=== PATIENT | female | born 1955 | race Caucasian/White ===

== ENCOUNTER → 2020-10-23 14:22 | Outpatient (BNVA) | payer MEDICARE, MEDICAID, SELFPAY | PROVIDERS: PCP Internal Medicine; Visit Provider Student in an Organized Health Care Education/Training Program | DX: Z13.89 Encounter for screening for other disorder (principal) | CPT/HCPCS: Q3014 ==

== ENCOUNTER 2021-03-02 20:35 | Emergency (ER) | payer MEDICARE, MEDICAID, SELFPAY ==
--- NOTE | ~2021-03-02 | CT_ITS ---
EXAMINATION: CT ABDOMEN AND PELVIS WITHOUT CONTRAST CLINICAL INFORMATION: Left flank pain COMPARISON: 09/09/2017 TECHNIQUE: Multidetector volumetric imaging was performed from the superior aspect of the liver through the pubic symphysis. Sagittal and coronal reformatted images were obtained on the technologist's workstation. This CT examination was performed using dose optimization techniques as appropriate, variously including the following: *Automated exposure control *Adjustment of mA and/or kV according to patient size (this includes techniques or standardized protocols for targeted exams where dose is matched to indication/reason for exam; i.e. extremities or head) *Use of iterative reconstruction technique DLP: 714 mGy-cm FINDINGS: LUNG BASES: The visualized lung bases are unremarkable. LIVER, GALLBLADDER, AND BILIARY TREE: Liver is normal in size, contour and morphology. Mild diffuse hepatic steatosis. Cholecystectomy. No intra or extrahepatic biliary dilatation. PANCREAS: Unremarkable. SPLEEN: Unremarkable. ADRENAL GLANDS: Unremarkable. KIDNEYS AND URETERS: The kidneys are normal in size, shape, and attenuation. No hydronephrosis, hydroureter, or calculi seen. No perinephric stranding. BLADDER: Unremarkable. GASTROINTESTINAL TRACT: Pancolonic diverticulosis. No evidence of diverticulitis. Appendectomy. Small hiatal hernia. Stomach otherwise unremarkable. Small bowel is normal. ABDOMINAL WALL: No significant hernia is appreciated. LYMPH NODES: Normal. VASCULAR: Aorta is atherosclerotic but normal caliber. PELVIC VISCERA: Uterus and adnexa unremarkable. OSSEOUS STRUCTURES: Unremarkable. CT/CT abdomen pelvis wo con IMPRESSION: No acute findings within the abdomen or pelvis to explain the patient's symptomatology. Pancolonic diverticulosis without evidence of diverticulitis.
[2021-03-02 20:47] VITALS: BP 181/62; PULSE 66; RESP 16; TEMP 36.7; O2SAT 97; BMI 33.6
[2021-03-02 21:16] LABS: Glucose Urine UA NEG (NEG); Leukocyte Esterase Urine NEG (NEG); Nitrite Urine NEG (NEG); PH 8.5 (5.0-8.0); Urine Blood NEG (NEG); Urine Ketones NEG (NEG); Urine Protein NEG (NEG-TRACE)
[2021-03-02 21:21] LABS: Appearance Urine CLEAR; Color Urine YELLOW
--- NOTE | 2021-03-02 22:45 | ED.ABDPAIN ---
HPI - Abdominal Pain General Chief Complaint: Abdominal Pain Stated Complaint: abdominal pain Time Seen by Provider: 03/02/21 22:35 Source: patient Mode of arrival: ambulatory Limitations: no limitations History of Present Illness HPI narrative: Patient comes to the emergency room complaining of left flank pain starting this morning. Patient states the pain is constant, radiating from the left flank towards the back, complaining of nausea, no vomiting or diarrhea, no fever. Patient also complaining of dysuria, denies hematuria. Patient denies trauma Related Data Home Medications Medication Instructions Recorded Confirmed alcohol swabs pad TOPICAL 09/11/20 01/09/21 buspirone 10 mg tablet mg PO 09/11/20 01/09/21 citalopram 20 mg tablet mg PO 09/11/20 01/09/21 metformin 500 mg tablet mg PO 09/11/20 01/09/21 atenolol 50 mg tablet 50 mg PO DAILY 10/23/20 01/09/21 Previous Rx's Medication Instructions Recorded atorvastatin 40 mg tablet 40 mg PO BEDTIME 90 Days #90 tab 10/10/20 acetaminophen 650 mg 650 mg PO Q8H PRN #90 tab 10/23/20 tablet,extended release walker #1 ea 12/26/20 clotrimazole 1 % vaginal cream 1 appful VAGINAL BEDTIME 7 Days 01/09/21 #45 g gabapentin 100 mg capsule 100 mg PO BEDTIME 30 Days #30 cap 01/09/21 fluconazole 150 mg tablet 150 mg PO Q3D #2 tab 01/24/21 amlodipine 5 mg tablet 5 mg PO DAILY #30 tab 02/08/21 aspirin 81 mg tablet,delayed 81 mg PO DAILY 90 Days #90 tab 02/08/21 release omeprazole 20 mg capsule,delayed 20 mg PO DAILY #90 cap 02/08/21 release cyclobenzaprine 5 mg PO TID PRN #10 tab 03/03/21 Allergies Allergy/AdvReac Type Severity Reaction Status Date / Time Penicillins Allergy Intermediate DIZZINESS, Verified 01/09/21 13:11 RASH tramadol [TRAMADOL] Allergy Unknown NAUSEA & Verified 01/09/21 13:11 VOMITING egg [Egg] AdvReac Intermediate NAUSEA & Verified 01/09/21 13:11 VOMITING morphine AdvReac Chest Pain Verified 03/03/21 00:35 FANY DRINK Allergy Intermediate NAUSEA & Uncoded 01/09/21 13:11 VOMITING Review of Systems Review of Systems Constitutional : No Weight loss, No Fever, No Chills, No Night Sweats, No Fatigue, No Malaise ENT/Mouth : No Hearing loss, No Ear Pain, No Nasal Congestion, No Sinus Pain, No Hoarseness, No sore throat, No Rhinorrhea, No Swallowing Difficulty Eyes: No Eye Pain, No Swelling, No Redness, No Foreign Body, No Discharge, No Vision Changes Cardiovascular : No Chest Pain, No SOB, No Dyspnea on Exertion, No Orthopnea, No Edema, No Palpitations Respiratory : No Cough, No Sputum, No Wheezing, No Smoke Exposure, No Dyspnea Gastrointestinal : No Nausea, No Vomiting, No Diarrhea, No Constipation, No abdominal Pain, No Hematochezia, No Melena, complaining of left flank pain Genitourinary : Complaining of dysuria, No Urinary Frequency, No Hematuria, No Urinary Incontinence, No Urgency, No Flank Pain, No Urinary Flow Changes, No Hesitancy Musculoskeletal : No joint pain, No Myalgias, No Joint Swelling Skin : No Skin Lesions, No rash Neuro : No Weakness, No Numbness, No Paresthesias, No Loss of Consciousness, No Dizziness, No Headache Psych : No Anxiety/Panic, No Depression, No SI/HI/AH/VH, No Social Issues, Heme/Lymph: No Bruising, No Bleeding,No Lymphadenopathy Endocrine : No Polyuria, No Polydipsia, No Temperature Intolerance Physical Exam Vital Signs: Vital Signs: Last Vital Signs Temp 98 F 03/02/21 23:37 Pulse 69 03/03/21 00:37 Resp 14 03/03/21 00:37 BP 159/59 H 03/03/21 00:37 Pulse Ox 97 03/02/21 23:37 Body Mass Index 33.6 Appearance: Alert. Oriented X3. No acute distress. Eyes: Pupils equal, round and reactive to light. ENT: Pharynx normal. Neck: Normal inspection. Neck supple. No lymph nodes noted. No crepitus CVS: Normal heart rate and rhythm. Pulses normal. Normal S1 and S2 Respiratory: No respiratory distress. Breath sounds normal. No Wheezing. No rales Abdomen: Soft and nontender. No rigidity. No distention. Back: No back pain on palpation, positive mild CVA tenderness on the left side Skin: Skin warm and dry. Normal skin color. Normal skin turgor. Extremities: No lower extremity edema. No lower extremity edema. No Lacerations. No Rash Neuro: Oriented X 3. No motor deficit. No sensory deficit. Moving all extermities. No slurred speech. Course Course Course Narrative: After patient was medicated with morphine, patient developed shortness of breath. Patient denied feeling sensation of throat closing, patient states she has had this episode before and forgot to tell us. Oxygen saturation remained 98% on room air, EKG done immediately showed no acute changes. Patient was given Zofran and patient feels back to normal again Patient's EKG within normal limits, patient's troponin negative, patient states that now she feels completely back to normal, no longer having abdominal pain or any other symptoms. MDM - Abdominal Pain MDM Narrative Medical decision making narrative: Overall patient is feeling better, I discussed the labs and imaging with the patient, patient follow-up with her primary care physician. It is possible the patient may have musculoskeletal pain in the left flank, urinalysis negative Lab Data Result diagrams: 03/02/21 22:55 03/02/21 22:55 Labs: Lab Results 03/02/21 03/02/21 03/02/21 Range/Units 21:06 22:55 22:55 WBC (4.8-10.8) X10*3/uL RBC (4.20-5.50) X10*6/uL Hgb (12.0-16.0) g/dl Hct (37-47) % MCV (80-98) fL MCH (27.0-33.0) pg MCHC (31.0-35.0) g/dl RDW (11.0-16.0) % Plt Count (160-400) X10*3/uL MPV (9.4-12.3) fL Immature Gran % (Auto) (0.0-0.4) % Neut % (Auto) (45-73) % Lymph % (Auto) (20-40) % Orange % (Auto) (2-11) % Eos % (Auto) (0-4) % Baso % (Auto) (0-2) % Lymph # (Auto) (1.2-4.9) X10*3/uL Orange # (Auto) (0.1-1.2) X10*3/uL Eos # (Auto) (0.0-0.4) X10*3/uL Baso # (Auto) (0.0-0.2) X10*3/uL Abs Immat Gran (auto) (0.00-0.03) X10*3/uL Absolute Neuts (auto) (2.0-8.3) X10*3/uL Absolute Nucleated RBC (0.0-0.012) X10*3/uL Nucleated RBC % (auto) (0.0-0.2) /100WBC Hold Blue Top SEE NOTE Sodium 140 (135-145) mmol/L Potassium 4.5 (3.3-5.1) mmol/L Chloride 105 (96-108) mmol/L Carbon Dioxide 30 H (22-29) mmol/L Anion Gap 10 L (12-20) BUN 14 (9-16) mg/dL Creatinine 0.82 (0.5-1.4) mg/dL Estim Creat Clear Calc 64.0 Estimated GFR > 60 Random Glucose 104 (60-115) mg/dL Calcium 8.9 (8.4-10.2) mg/dL Total Bilirubin 0.2 (0.0-1.0) mg/dL Direct Bilirubin < 0.2 (0.0-0.5) mg/dL AST 20 (5-31) U/L ALT 19 (0-31) U/L Alkaline Phosphatase 164 H (39-117) U/L Troponin I High Sens (<3.5-17.0) ng/L Total Protein 6.7 (6.5-8.0) g/dL Albumin 3.9 (3.5-5.0) g/dL Urine Color YELLOW Urine Appearance CLEAR Urine pH 8.5 H (5.0-8.0) Ur Specific [place] 1.020 (1.005-1.025) Urine Protein NEG (NEG-TRACE) MG/DL Urine Glucose (UA) NEG (NEG) MG/DL Urine Ketones NEG (NEG) MG/DL Urine Blood NEG (NEG) Urine Nitrite NEG (NEG) Ur Leukocyte Esterase NEG (NEG) 03/02/21 03/02/21 03/03/21 Range/Units 22:55 22:55 01:31 WBC 8.6 (4.8-10.8) X10*3/uL RBC 3.78 L (4.20-5.50) X10*6/uL Hgb 11.0 L (12.0-16.0) g/dl Hct 34.7 L (37-47) % MCV 91.8 (80-98) fL MCH 29.1 (27.0-33.0) pg MCHC 31.7 (31.0-35.0) g/dl RDW 13.1 (11.0-16.0) % Plt Count 258 (160-400) X10*3/uL MPV 10.9 (9.4-12.3) fL Immature Gran % (Auto) 0.4 (0.0-0.4) % Neut % (Auto) 59.2 (45-73) % Lymph % (Auto) 29.6 (20-40) % Orange % (Auto) 8.2 (2-11) % Eos % (Auto) 1.8 (0-4) % Baso % (Auto) 0.8 (0-2) % Lymph # (Auto) 2.5 (1.2-4.9) X10*3/uL Orange # (Auto) 0.7 (0.1-1.2) X10*3/uL Eos # (Auto) 0.2 (0.0-0.4) X10*3/uL Baso # (Auto) 0.1 (0.0-0.2) X10*3/uL Abs Immat Gran (auto) 0.03 (0.00-0.03) X10*3/uL Absolute Neuts (auto) 5.1 (2.0-8.3) X10*3/uL Absolute Nucleated RBC 0.000 (0.0-0.012) X10*3/uL Nucleated RBC % (auto) 0.0 (0.0-0.2) /100WBC Hold Blue Top Sodium Cancelled (135-145) mmol/L Potassium Cancelled (3.3-5.1) mmol/L Chloride Cancelled (96-108) mmol/L Carbon Dioxide Cancelled (22-29) mmol/L Anion Gap Cancelled (12-20) BUN Cancelled (9-16) mg/dL Creatinine Cancelled (0.5-1.4) mg/dL Estim Creat Clear Calc Cancelled Estimated GFR Cancelled Random Glucose Cancelled (60-115) mg/dL Calcium Cancelled (8.4-10.2) mg/dL Total Bilirubin Cancelled (0.0-1.0) mg/dL Direct Bilirubin Cancelled (0.0-0.5) mg/dL AST Cancelled (5-31) U/L ALT Cancelled (0-31) U/L Alkaline Phosphatase Cancelled (39-117) U/L Troponin I High Sens 4.6 (<3.5-17.0) ng/L Total Protein Cancelled (6.5-8.0) g/dL Albumin Cancelled (3.5-5.0) g/dL Urine Color Urine Appearance Urine pH (5.0-8.0) Ur Specific [place] (1.005-1.025) Urine Protein (NEG-TRACE) MG/DL Urine Glucose (UA) (NEG) MG/DL Urine Ketones (NEG) MG/DL Urine Blood (NEG) Urine Nitrite (NEG) Ur Leukocyte Esterase (NEG) Imaging Data CT scan - abdomen: Radiologist's impression: FINDINGS: LUNG BASES: The visualized lung bases are unremarkable. LIVER, GALLBLADDER, AND BILIARY TREE: Liver is normal in size, contour and morphology. Mild diffuse hepatic steatosis. Cholecystectomy. No intra or extrahepatic biliary dilatation. PANCREAS: Unremarkable. SPLEEN: Unremarkable. ADRENAL GLANDS: Unremarkable. KIDNEYS AND URETERS: The kidneys are normal in size, shape, and attenuation. No hydronephrosis, hydroureter, or calculi seen. No perinephric stranding. BLADDER: Unremarkable. GASTROINTESTINAL TRACT: Pancolonic diverticulosis. No evidence of diverticulitis. Appendectomy. Small hiatal hernia. Stomach otherwise unremarkable. Small bowel is normal. ABDOMINAL WALL: No significant hernia is appreciated. LYMPH NODES: Normal. VASCULAR: Aorta is atherosclerotic but normal caliber. PELVIC VISCERA: Uterus and adnexa unremarkable. OSSEOUS STRUCTURES: Unremarkable. CT/CT abdomen pelvis wo con IMPRESSION: No acute findings within the abdomen or pelvis to explain the patient's symptomatology. Pancolonic diverticulosis without evidence of diverticulitis. ECG Data Attestation: I personally reviewed and interpreted this ECG as follows: (Sinus rhythm, heart rate 66, no ST segment depression or elevation, no T-wave inversion) Discharge Plan Discharge Clinical Impression: Acute left flank pain Patient Disposition: Home, Self-Care Instructions: Flank Pain (ED) Additional Instructions: Please follow-up with your primary care physician tomorrow. If you have any worsening or new symptoms, please return to the emergency room or call 911 Prescriptions: New cyclobenzaprine 5 mg tablet 5 mg PO TID PRN (Reason: muscle spasm) Qty: 10 RF: 0 No Action atorvastatin 40 mg tablet 40 mg PO BEDTIME 90 Days Qty: 90 RF: 3 (DME) walker Misc See Rx Instructions .ROUTE .MEDSUPPLY Qty: 1 RF: 0 fluconazole [Diflucan] 150 mg tablet 150 mg PO Q3D Qty: 2 RF: 0 omeprazole 20 mg capsule,delayed release(DR/EC) 20 mg PO DAILY Qty: 90 RF: 3 amlodipine 5 mg tablet 5 mg PO DAILY Qty: 30 RF: 6 aspirin 81 mg tablet,delayed release (DR/EC) 81 mg PO DAILY 90 Days Qty: 90 RF: 3 alcohol swabs Pads, Medicated topical RF: 0 buspirone 10 mg tablet PO RF: 0 citalopram 20 mg tablet PO RF: 0 metformin 500 mg tablet PO RF: 0 gabapentin 100 mg capsule 100 mg PO BEDTIME 30 Days Qty: 30 RF: 6 clotrimazole 1 % cream 1 appful vaginal BEDTIME 7 Days Qty: 45 RF: 0 atenolol 50 mg tablet 50 mg PO DAILY RF: 0 acetaminophen [Tylenol Arthritis Pain] 650 mg tablet extended release 650 mg PO Q8H PRN (Reason: pain) Qty: 90 RF: 4 PMFSH Past Medical History Medical History Depression with anxiety Diabetes mellitus Essential hypertension Left ankle pain Left knee pain Polyarthralgia Pure hypercholesterolemia Vaginal pruritus Vitamin D deficiency Surgical History History of appendectomy History of cholecystectomy History of cyst of breast History of exploratory laparotomy History of hemicolectomy Family History Family History Father No problems noted. Mother Hypertension Stroke Diabetes Brother Leptospirosis Brother No problems noted. Family/Other FH: mental illness Social History Social History Alcohol intake: never Smoking Status: Never smoker Advance Directives: No Advance Directives Information Provided: No
[2021-03-02 23:01] LABS: MANUAL DIFF FLAG NO
[2021-03-02 23:03] LABS: Basophils Absolute Auto 0.1 X10*3/uL (0.0-0.2); Basophils Percent Auto 0.8 % (0-2); Eosinophils Absolute Auto 0.2 X10*3/uL (0.0-0.4); Eosinophils Percent Auto 1.8 % (0-4); Hematocrit 34.7 % (37-47); Imm Gran Abs Auto 0.03 X10*3/uL (0.00-0.03); Imm Gran Pct Auto 0.4 % (0.0-0.4); Lymphocytes Absolute Auto 2.5 X10*3/uL (1.2-4.9); Lymphocytes Percent Auto 29.6 % (20-40); Mean Corpuscular HGB Conc 31.7 g/dl (31.0-35.0); Mean Corpuscular Hemoglobin 29.1 pg (27.0-33.0); Mean Corpuscular Volume 91.8 fL (80-98); Mean Platelet Volume 10.9 fL (9.4-12.3); Monocytes Absolute Auto 0.7 X10*3/uL (0.1-1.2); Monocytes Percent Auto 8.2 % (2-11); Neutrophils Absolute Auto 5.1 X10*3/uL (2.0-8.3); Neutrophils Percent Auto 59.2 % (45-73); Platelet Count 258 X10*3/uL (160-400); Red Blood Count 3.78 X10*6/uL (4.20-5.50); Red Cell Distribution Width 13.1 % (11.0-16.0); White Blood Count 8.6 X10*3/uL (4.8-10.8)
[2021-03-02 23:26] LABS: Alanine Aminotransferase 19 U/L (0-31); Albumin Level 3.9 g/dL (3.5-5.0); Alkaline Phosphatase 164 U/L (39-117); Anion Gap 10 (12-20); Aspartate Amino Transferase 20 U/L (5-31); Bilirubin Direct < 0.2 mg/dL (0.0-0.5); Bilirubin Total 0.2 mg/dL (0.0-1.0); Blood Urea Nitrogen 14 mg/dL (9-16); Calcium 8.9 mg/dL (8.4-10.2); Carbon Dioxide 30 mmol/L (22-29); Chloride 105 mmol/L (96-108); Estimated Glomerular Filt Rate > 60; Glucose Random 104 mg/dL (60-115); Potassium 4.5 mmol/L (3.3-5.1); Sodium 140 mmol/L (135-145); Total Protein 6.7 g/dL (6.5-8.0)
[2021-03-02 23:37] VITALS: BP 147/61; PULSE 59; RESP 16; TEMP 36.6; O2SAT 97
[2021-03-02] MEDS: ondansetron HCL 4 MG/2 ML VIAL IVPUSH (23:50)
[2021-03-02] MEDS: Morphine Sulfate 4 MG/ML CARTRIDGE IVPUSH (23:50)
[2021-03-02] MEDS: Ketorolac Tromethamine 30 MG/ML VIAL IVPUSH (23:52)
--- NOTE | 2021-03-03 00:33 | ECG_ITS ---
Test Reason : CHEST PAIN Blood Pressure : / mmHG Vent. Rate : 066 BPM Atrial Rate : 066 BPM P-R Int : 152 ms QRS Dur : 082 ms QT Int : 426 ms P-R-T Axes : 056 -16 036 degrees QTc Int : 446 ms Sinus rhythm with Premature atrial complexes Moderate voltage criteria for LVH, may be normal variant Borderline ECG When compared with ECG of 12-NOV-2019 15:57, Premature atrial complexes are now Present Referred By: Generic ED Physician Electronically Signed By:MANUEL PEREIRA MD
--- NOTE | 2021-03-03 00:35 | PC.NURSE ---
pt began to experience nausea and chest pain following morphine administration. pt failed to mention that she has experience this reaction in the past. morphine now on pt's allergy list.
[2021-03-03 00:37] VITALS: BP 159/59; PULSE 69; RESP 14
[2021-03-03 02:01] LABS: Troponin-I High Sensitivity 4.6 ng/L (<3.5-17.0)
[2021-03-03] MEDS: ondansetron HCL 4 MG/2 ML VIAL IVPUSH (02:47)
[2021-03-03 02:49] VITALS: BP 139/42; PULSE 70; RESP 16; O2SAT 93
--- NOTE | 2021-03-03 03:05 | PC.NURSE ---
PT AND IN A HURRY TO GO HOME, ASKED SEVERAL TIMES TO BE DISCHARGED. PT WOULD NOT WAIT FOR INTERPRETOR. TRANSLATED INSTRUCTIONS.
== END 2021-03-03 03:05 | disposition home or self-care (01) ==
PROVIDERS: Emergency Provider Emergency Medicine; PCP Internal Medicine
DX: R10.9 Unspecified abdominal pain (principal); F41.8 Other specified anxiety disorders; E78.00 Pure hypercholesterolemia, unspecified; I10 Essential (primary) hypertension; E11.9 Type 2 diabetes mellitus without complications; K21.9 Gastro-esophageal reflux disease without esophagitis
CPT/HCPCS: 36415; 74176; 80053; 81003; 82248; 84484; 85025; 93005; 96374; 96375; 96376; 99283; 99284; J1885; J2270; J2405

== ENCOUNTER 2021-03-21 08:46 | Outpatient (REF) | payer MEDICARE, MEDICAID, SELFPAY ==
[2021-03-21 09:34] LABS: MANUAL DIFF FLAG NO
[2021-03-21 10:04] LABS: Basophils Absolute Auto 0.1 X10*3/uL (0.0-0.2); Basophils Percent Auto 0.9 % (0-2); Eosinophils Absolute Auto 0.2 X10*3/uL (0.0-0.4); Eosinophils Percent Auto 2.3 % (0-4); Hemoglobin 11.7 g/dl (12.0-16.0); Imm Gran Abs Auto 0.02 X10*3/uL (0.00-0.03); Imm Gran Pct Auto 0.3 % (0.0-0.4); Lymphocytes Absolute Auto 1.9 X10*3/uL (1.2-4.9); Lymphocytes Percent Auto 23.5 % (20-40); Mean Corpuscular HGB Conc 31.6 g/dl (31.0-35.0); Mean Corpuscular Hemoglobin 28.9 pg (27.0-33.0); Mean Corpuscular Volume 91.4 fL (80-98); Mean Platelet Volume 11.5 fL (9.4-12.3); Monocytes Absolute Auto 0.5 X10*3/uL (0.1-1.2); Monocytes Percent Auto 6.7 % (2-11); Neutrophils Absolute Auto 5.2 X10*3/uL (2.0-8.3); Neutrophils Percent Auto 66.3 % (45-73); Platelet Count 276 X10*3/uL (160-400); Red Blood Count 4.05 X10*6/uL (4.20-5.50); Red Cell Distribution Width 13.1 % (11.0-16.0); White Blood Count 7.9 X10*3/uL (4.8-10.8)
[2021-03-21 10:17] LABS: Alanine Aminotransferase 18 U/L (0-31); Albumin Level 3.9 g/dL (3.5-5.0); Alkaline Phosphatase 179 U/L (39-117); Anion Gap 11 (12-20); Aspartate Amino Transferase 17 U/L (5-31); Bilirubin Total 0.4 mg/dL (0.0-1.0); Blood Urea Nitrogen 14 mg/dL (9-16); Calcium 8.8 mg/dL (8.4-10.2); Carbon Dioxide 30 mmol/L (22-29); Chloride 104 mmol/L (96-108); Cholesterol 85 mg/dL; Estimated Glomerular Filt Rate > 60; Glucose Fasting 138 mg/dL (60-99); HDL Cholesterol 34 mg/dL; LDL Cholesterol Calculated 32 mg/dl; Potassium 4.1 mmol/L (3.3-5.1); Sodium 141 mmol/L (135-145); Total Protein 6.7 g/dL (6.5-8.0); Triglycerides 97 mg/dL
[2021-03-21 11:18] LABS: Creatinine Urine 167.25 mg/dL; Microalbum/Creatinine Ratio Ur 4.7 ug/mg cr
[2021-03-25 20:17] LABS: Vitamin D 25-OH, D2 <4 ng/mL; Vitamin D 25-OH, D3 35 ng/mL; Vitamin D 25-OH, Total 35 ng/mL (30-100)
== END 2021-03-21 08:47 | disposition home or self-care (01) ==
LOC: HO.LAB 08:46
PROVIDERS: PCP Internal Medicine; Visit Provider Internal Medicine
DX: E11.9 Type 2 diabetes mellitus without complications (principal); E55.9 Vitamin D deficiency, unspecified; D64.9 Anemia, unspecified; K21.9 Gastro-esophageal reflux disease without esophagitis
CPT/HCPCS: 36415; 80053; 80061; 82043; 82306; 85025

== ENCOUNTER 2021-03-23 17:28 | Emergency (ER) | payer MEDICARE, MEDICAID, SELFPAY ==
--- NOTE | ~2021-03-23 | XR_ITS ---
EXAMINATION: XR CHEST CLINICAL INFORMATION: Cough COMPARISON: October 2019 TECHNIQUE: Frontal view of the chest was obtained. FINDINGS: No significant abnormality is noted involving the heart, lungs, mediastinum, bony thorax or soft tissues. Small density projecting over the right upper lobe superimposed on the fifth rib unchanged since 2019 presumably benign. XR/XR chest 1V IMPRESSION: No evidence of pneumonia.
[2021-03-23 17:49] VITALS: BP 145/61; PULSE 76; RESP 20; TEMP 36.8; O2SAT 97; BMI 33.2
[2021-03-23 18:38] LABS: Influenza A PCR NEGATIVE (Negative); Influenza B PCR NEGATIVE (Negative); Resp Syncy Virus RNA Qual PCR NEGATIVE (Negative); SARS COV2 PCR INHOUSE NEGATIVE (Negative)
[2021-03-23] MEDS: Albuterol Sulfate 90 MCG 8 GM INHALER 4 PUFF INHALE (21:51)
[2021-03-23 21:53] VITALS: PULSE 76; O2SAT 97
[2021-03-23 22:00] VITALS: BP 134/82; PULSE 76; RESP 18; O2SAT 97
--- NOTE | 2021-03-23 22:06 | ED.GENADULT ---
HPI - General Adult General Chief complaint: Upper Respiratory Symptoms Stated complaint: cough, diff breathing Time Seen by Provider: 03/23/21 21:46 Source: patient and diplomatic interpreter/translator Mode of arrival: ambulatory History of Present Illness HPI narrative: 65-year-old female with history of diabetes and asthma (does not have an albuterol inhaler) who presents with 2 days of worsening cough and some associated difficulty breathing but denies any sore throat, fevers, chills, GI symptoms or symptoms. Patient has received both COVID-19 vaccines in January and denies any sick contacts. Related Data Home Medications Medication Instructions Recorded Confirmed alcohol swabs pad TOPICAL 09/11/20 03/05/21 buspirone 10 mg tablet mg PO 09/11/20 03/05/21 citalopram 20 mg tablet mg PO 09/11/20 03/05/21 metformin 500 mg tablet mg PO 09/11/20 03/05/21 atenolol 50 mg tablet 50 mg PO DAILY 10/23/20 03/05/21 Previous Rx's Medication Instructions Recorded atorvastatin 40 mg tablet 40 mg PO BEDTIME 90 Days #90 tab 10/10/20 acetaminophen 650 mg 650 mg PO Q8H PRN #90 tab 10/23/20 tablet,extended release walker #1 ea 12/26/20 clotrimazole 1 % vaginal cream 1 appful VAGINAL BEDTIME 7 Days 01/09/21 #45 g gabapentin 100 mg capsule 100 mg PO BEDTIME 30 Days #30 cap 01/09/21 fluconazole 150 mg tablet 150 mg PO Q3D #2 tab 01/24/21 amlodipine 5 mg tablet 5 mg PO DAILY #30 tab 02/08/21 aspirin 81 mg tablet,delayed 81 mg PO DAILY 90 Days #90 tab 02/08/21 release omeprazole 20 mg capsule,delayed 20 mg PO DAILY #90 cap 02/08/21 release cyclobenzaprine 5 mg PO TID PRN #10 tab 03/03/21 ibuprofen 800 mg tablet 800 mg PO Q8H PRN 7 Days #21 tab 03/05/21 simethicone 125 mg capsule 125 mg PO BID-QID PRN 30 Days #90 03/05/21 cap prednisone 40 mg PO DAILY 4 Days #8 tab 03/23/21 Allergies Allergy/AdvReac Type Severity Reaction Status Date / Time Penicillins Allergy Intermediate DIZZINESS, Verified 03/23/21 17:51 RASH tramadol [TRAMADOL] Allergy Intermediate NAUSEA & Verified 03/23/21 17:51 VOMITING egg [Egg] AdvReac Intermediate NAUSEA & Verified 03/23/21 17:51 VOMITING morphine AdvReac Intermediate Chest Pain Verified 03/23/21 17:51 FANY DRINK Allergy Intermediate NAUSEA & Uncoded 03/23/21 17:51 VOMITING Review of Systems Review of Systems: Pertinent positives and negatives as stated in HPI 10 point review systems is otherwise negative. PMFSH Past Medical History Source: nursing notes reviewed Medical History Abdominal pain Back pain Depression with anxiety Diabetes mellitus Essential hypertension Left ankle pain Left knee pain Polyarthralgia Pure hypercholesterolemia Vaginal pruritus Vitamin D deficiency Surgical History History of appendectomy History of cholecystectomy History of cyst of breast History of exploratory laparotomy History of hemicolectomy Family History Family History Father No problems noted. Mother Hypertension Stroke Diabetes Brother Leptospirosis Brother No problems noted. Family/Other FH: mental illness Social History Social History Alcohol intake: never Advance Directives: No Advance Directives Information Provided: Yes Physical Exam Vital Signs: Vital Signs: Last Vital Signs Temp 98.2 F 03/23/21 17:49 Pulse 76 03/23/21 21:53 Resp 20 03/23/21 17:49 BP 145/61 H 03/23/21 17:49 Pulse Ox 97 03/23/21 17:49 Body Mass Index 33.2 VITAL SIGNS: Reviewed. GENERAL: Well developed, well nourished, in no acute distress. HEAD: Normocephalic/atraumatic EYES: PERRLA, EOMI OROPHARYNX: no oral lesions noted, posterior pharynx clear NECK: Supple, no adenopathy LUNGS: Good inspiratory effort, mild bilateral expiratory wheeze with no increased work of breathing, no tachypnea. SpO2<97> CARDIOVASCULAR: Regular rate and rhythm without noted murmurs, no JVD or lower extremity edema. ABDOMEN: Soft, non-tender, non-distended with bowel sounds. Course Course Course Narrative: This is a 65-year-old female with history and clinical presentation consistent with mild asthma exacerbation likely secondary to seasonal allergies. Review of COVID-19 and chest x-ray are negative for any acute findings and patient was provided with albuterol and oral prednisone here in the ER and on re-evaluation reports improvement in her symptoms. She was discharged home in stable condition instructed follow-up with her primary care provider. Medical Decision Making Lab Data Labs: Lab Results 03/23/21 Range/Units 17:52 Coronavirus (PCR) NEGATIVE (Negative) Influenza Type A (PCR) NEGATIVE (Negative) Influenza Type B (PCR) NEGATIVE (Negative) RSV RNA Qual (PCR) NEGATIVE (Negative) Discharge Plan Discharge Clinical Impression: Asthma exacerbation, Acute seasonal allergic rhinitis Patient Disposition: Home, Self-Care Instructions: Loratadine (By mouth), Fluticasone (Into the nose), Asthma (ED) Additional Instructions: 1. Reanude todos los medicamentos caseros seg?n lo prescrito. 2. Recomiende comenzar con Claritin y Flonase, disponibles sin receta, para disminuir adicionalmente la probabilidad de s?ntomas de asma. 3. Yessi un seguimiento con sullivan proveedor de atenci?n primaria en los pr?ximos 2-3 d?as para whitley reevaluaci?n. Regrese a la adán de emergencias por cualquier empeoramiento torres de los s?ntomas. Prescriptions: New prednisone 20 mg tablet 40 mg PO DAILY 4 Days Qty: 8 RF: 0 No Action atorvastatin 40 mg tablet 40 mg PO BEDTIME 90 Days Qty: 90 RF: 3 (DME) walker Misc See Rx Instructions .ROUTE .MEDSUPPLY Qty: 1 RF: 0 fluconazole [Diflucan] 150 mg tablet 150 mg PO Q3D Qty: 2 RF: 0 omeprazole 20 mg capsule,delayed release(DR/EC) 20 mg PO DAILY Qty: 90 RF: 3 amlodipine 5 mg tablet 5 mg PO DAILY Qty: 30 RF: 6 aspirin 81 mg tablet,delayed release (DR/EC) 81 mg PO DAILY 90 Days Qty: 90 RF: 3 cyclobenzaprine 5 mg tablet 5 mg PO TID PRN (Reason: muscle spasm) Qty: 10 RF: 0 alcohol swabs Pads, Medicated topical RF: 0 buspirone 10 mg tablet PO RF: 0 citalopram 20 mg tablet PO RF: 0 metformin 500 mg tablet PO RF: 0 gabapentin 100 mg capsule 100 mg PO BEDTIME 30 Days Qty: 30 RF: 6 clotrimazole 1 % cream 1 appful vaginal BEDTIME 7 Days Qty: 45 RF: 0 simethicone [Gas Relief (simethicone)] 125 mg capsule 125 mg PO BID-QID PRN (Reason: abdominal distention) 30 Days Qty: 90 RF: 0 ibuprofen 800 mg tablet 800 mg PO Q8H PRN (Reason: pain) 7 Days Qty: 21 RF: 0 atenolol 50 mg tablet 50 mg PO DAILY RF: 0 acetaminophen [Tylenol Arthritis Pain] 650 mg tablet extended release 650 mg PO Q8H PRN (Reason: pain) Qty: 90 RF: 4 Referrals: Aure Barrett MD [Primary Care Provider] - 2 days ( re-evaluation after seen in the ER for very mild asthma exacerbation.) Print Language: Guyanese
[2021-03-23] MEDS: predniSONE 20 MG TABLET 40 MG PO (22:18)
== END 2021-03-23 22:40 | disposition home or self-care (01) ==
PROVIDERS: Emergency Provider Student in an Organized Health Care Education/Training Program; PCP Internal Medicine
DX: J45.901 Unspecified asthma with (acute) exacerbation (principal); J30.2 Other seasonal allergic rhinitis; R05 Cough; R06.02 Shortness of breath; Z20.822 Contact with and (suspected) exposure to COVID-19; Z79.899 Other long term (current) drug therapy
CPT/HCPCS: 0241U; 36415; 71045; 94640; 99284

== ENCOUNTER 2021-04-30 09:28 | Outpatient (REF) | payer MEDICARE, MEDICAID, SELFPAY ==
[2021-05-02 22:36] LABS: HPV mRNA E6/E7 rflx Not Detected (Not Detected)
== END 2021-04-30 09:29 | disposition home or self-care (01) ==
LOC: HO.LAB 09:28
PROVIDERS: PCP Internal Medicine; Visit Provider Advanced Practice Midwife
DX: Z01.411 Encounter for gynecological examination (general) (routine) with abnormal findings (principal); Z11.51 Encounter for screening for human papillomavirus (HPV); R21 Rash and other nonspecific skin eruption
CPT/HCPCS: 87624; 88142

== ENCOUNTER → 2021-06-12 12:27 | Outpatient (BNVA) | payer MEDICARE, MEDICAID, SELFPAY | PROVIDERS: PCP Internal Medicine; Visit Provider Nurse Practitioner Family | DX: M25.50 Pain in unspecified joint (principal); M25.562 Pain in left knee; M25.511 Pain in right shoulder; M25.512 Pain in left shoulder; G89.29 Other chronic pain | CPT/HCPCS: 99212 ==

== ENCOUNTER 2021-06-28 07:21 | Outpatient (REF) | payer MEDICARE, MEDICAID, SELFPAY ==
--- NOTE | ~2021-06-28 | XR_ITS ---
EXAMINATION: XR BILATERAL KNEE AP STANDING. LATERAL AND SUNRISE VIEWS OF THE LEFT KNEE. CLINICAL INFORMATION: Left knee pain COMPARISON: 11/23/2017 TECHNIQUE: AP bilateral standing view of both knees, lateral view of the left knee, and sunrise view of the left knee were obtained. FINDINGS: Left knee: Moderate lateral, mild medial compartment joint space narrowing with sclerosis and osteophytosis. No fracture. No joint effusion. There is patellofemoral joint space narrowing and osteophytosis as well. Right knee: Medial and lateral joint spaces are maintained. No fracture or dislocation seen. XR/XR knee LT 3V IMPRESSION: Tricompartmental degenerative arthrosis of the left knee greatest in the medial compartment. No acute osseous abnormality. Findings are similar to the prior study
== END 2021-06-28 07:22 | disposition home or self-care (01) ==
LOC: HO.HOSX 07:21
PROVIDERS: Visit Provider Physician Assistant
DX: M17.12 Unilateral primary osteoarthritis, left knee (principal)
CPT/HCPCS: 73562; 99202

== ENCOUNTER 2021-09-14 19:17 | Emergency (ER) | payer MEDICARE, MEDICAID, SELFPAY ==
[2021-09-14 20:02] LABS: COVID-19 Test Negative (Negative); IDNOW Serial# 9DD0AD1C
[2021-09-14 20:10] VITALS: BP 160/56; PULSE 54; RESP 15; TEMP 36.9; O2SAT 99; BMI 34.7
[2021-09-14] MEDS: Ibuprofen 400 MG TABLET PO (21:24)
[2021-09-14] MEDS: Acetaminophen 325 MG TABLET 975 MG PO (21:24)
--- NOTE | 2021-09-14 21:39 | ED.GENADULT ---
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 She denies any fever, chills, sore throat, new cough, fatigue/body aches, shortness of breath. Patient is COVID-19 vaccinated. Related Data Home Medications Medication Instructions Recorded Confirmed alcohol swabs pad TOPICAL 09/11/20 05/13/21 buspirone 10 mg tablet mg PO 09/11/20 05/13/21 citalopram 20 mg tablet mg PO 09/11/20 05/13/21 metformin 500 mg tablet mg PO 09/11/20 05/13/21 Previous Rx's Medication Instructions Recorded acetaminophen 650 mg 650 mg PO Q8H PRN #90 tab 10/23/20 tablet,extended release (Tylenol Arthritis Pain) walker #1 ea 12/26/20 amlodipine 5 mg tablet 5 mg PO DAILY #30 tab 02/08/21 aspirin 81 mg tablet,delayed 81 mg PO DAILY 90 Days #90 tab 02/08/21 release omeprazole 20 mg capsule,delayed 20 mg PO DAILY #90 cap 02/08/21 release ibuprofen 800 mg tablet 800 mg PO Q8H PRN 7 Days #21 tab 03/05/21 simethicone 125 mg capsule (Gas 125 mg PO BID-QID PRN 30 Days #90 03/05/21 Relief (simethicone)) cap nebulizers (AeroEclipse II #1 ea 04/01/21 Nebulizer) albuterol sulfate 2.5 mg (3 mL) INHALATION Q4-6H PRN 04/10/21 30 Days #75 ml clotrimazole-betamethasone 1 1 appl TOPICAL BID PRN 7 Days #45 g 04/30/21 %-0.05 % topical cream atorvastatin 20 mg tablet 20 mg PO BEDTIME 90 Days #90 tab 05/13/21 atenolol 50 mg tablet 50 mg PO DAILY 90 Days #90 tab 05/31/21 gabapentin 100 mg capsule 100 mg PO BEDTIME 30 Days #30 cap 09/06/21 Allergies Allergy/AdvReac Type Severity Reaction Status Date / Time Penicillins Allergy Intermediate DIZZINESS, Verified 06/12/21 13:27 RASH tramadol [TRAMADOL] Allergy Intermediate NAUSEA & Verified 06/12/21 13:27 VOMITING egg [Egg] AdvReac Intermediate NAUSEA & Verified 06/12/21 13:27 VOMITING morphine AdvReac Intermediate Chest Pain Verified 06/12/21 13:27 FANY DRINK Allergy Intermediate NAUSEA & Uncoded 05/13/21 15:00 VOMITING Review of Systems Review of Systems: Pertinent positives and negatives as stated in HPI 10 point review of systems is otherwise negative. PMFSH Past Medical History Source: nursing notes reviewed Medical History Abdominal pain Asthma Back pain Depression with anxiety Diabetes mellitus Essential hypertension Left ankle pain Left knee pain Mild depression Polyarthralgia Pure hypercholesterolemia TIA (transient ischemic attack) Vaginal pruritus Vitamin D deficiency Surgical History History of appendectomy History of cholecystectomy History of cyst of breast History of exploratory laparotomy History of hemicolectomy Family History Family History Father No problems noted. Mother Hypertension Stroke Diabetes Brother Leptospirosis Brother No problems noted. Family/Other FH: mental illness Social History Social History Housing: Apartment Alcohol intake: never Patient Tobacco Use Status: Never used Tobacco e-Cigarette/Vaping Use: Never Used Second Hand Smoke Exposure: No Advance Directives: No Advance Directives Information Provided: No service: No Current occupational status: unemployed Sexual orientation: Straight/Heterosexual Gender identity: Female Physical Exam Vital Signs: Vital Signs: Last Vital Signs Temp 98.4 F 09/14/21 20:10 Pulse 54 09/14/21 20:10 Resp 15 09/14/21 20:10 BP 160/56 H 09/14/21 20:10 Pulse Ox 99 09/14/21 20:10 Body Mass Index 34.7 VITAL SIGNS: Reviewed. GENERAL: Well developed, well nourished, in no acute distress. HEAD: Normocephalic/atraumatic EYES: PERRLA, EOMI EARS: Ext canals without abnormality, TMs non-bulging and non-erythematous NOSE: Nares patent bilateral OROPHARYNX: no oral lesions noted, posterior pharynx clear and non-erythematous without noted tonsillar enlargement/erythema/exudates NECK: Supple, no adenopathy LUNGS: Normal breath sounds. No adventitious sounds or accessory muscle use. SpO2<99> CARDIOVASCULAR: Regular rate and rhythm without noted murmurs, no JVD or lower extremity edema. ABDOMEN: Soft, non-tender, non-distended with bowel sounds. NEUROLOGIC: Alert and oriented x 4. Course Course Course Narrative: This is a 65-year-old female who is vaccinated against COVID-19 and asymptomatic and on review is negative for COVID-19 infection. Results were discussed with her at bedside and she was cautioned that she would need to retest in 3-4 days and in the meantime should continue with social distancing and wear a mask at all times. Medical Decision Making Lab Data Labs: Lab Results 09/14/21 Range/Units 19:37 COVID-19 (LIDIA) Negative (Negative) COVID-19 Clin Com See Note Discharge Plan Discharge Clinical Impression: Exposure to COVID-19 virus, Lab test negative for COVID-19 virus Patient Disposition: Home, Self-Care Instructions: COVID-19 (Coronavirus Disease 2019) (ED), Covid-19 Viral Syndrome and Novel Coronavirus (ED) Hey/Ath Additional Instructions: 1. Reanude todos los medicamentos caseros. 2. Yessi un seguimiento con sullivan proveedor de atenci?n primaria en los pr?ximos 2-3 d?as para reevaluar sullivan prueba de COVID 19. 3. Contin?e con la distancia social y use sullivan m?scara en todo momento. Regrese a la adán de emergencias si los s?ntomas empeoran, karly fiebre, escalofr?os, dolor de garganta, p?rdida del gusto u olfato. Prescriptions: No Action (DME) walker Misc See Rx Instructions .ROUTE .MEDSUPPLY Qty: 1 RF: 0 omeprazole 20 mg capsule,delayed release(DR/EC) 20 mg PO DAILY Qty: 90 RF: 3 amlodipine 5 mg tablet 5 mg PO DAILY Qty: 30 RF: 6 aspirin 81 mg tablet,delayed release (DR/EC) 81 mg PO DAILY 90 Days Qty: 90 RF: 3 (DME) AeroEclipse II Nebulizer Misc See Rx Instructions .ROUTE .MEDSUPPLY Qty: 1 RF: 0 albuterol sulfate 2.5 mg /3 mL (0.083 %) solution for nebulization 2.5 mg inhalation Q4-6H PRN (Reason: shortness of breath or wheezing) 30 Days Qty: 75 RF: 2 atenolol 50 mg tablet 50 mg PO DAILY 90 Days Qty: 90 RF: 2 gabapentin 100 mg capsule 100 mg PO BEDTIME 30 Days Qty: 30 RF: 6 alcohol swabs Pads, Medicated topical RF: 0 buspirone 10 mg tablet PO RF: 0 citalopram 20 mg tablet PO RF: 0 metformin 500 mg tablet PO RF: 0 atorvastatin 20 mg tablet 20 mg PO BEDTIME 90 Days Qty: 90 RF: 1 simethicone [Gas Relief (simethicone)] 125 mg capsule 125 mg PO BID-QID PRN (Reason: abdominal distention) 30 Days Qty: 90 RF: 0 ibuprofen 800 mg tablet 800 mg PO Q8H PRN (Reason: pain) 7 Days Qty: 21 RF: 0 acetaminophen [Tylenol Arthritis Pain] 650 mg tablet extended release 650 mg PO Q8H PRN (Reason: pain) Qty: 90 RF: 4 clotrimazole-betamethasone 1-0.05 % cream 1 appl topical BID PRN (Reason: itching) 7 Days Qty: 45 RF: 0 Referrals: Aure Barrett MD [Primary Care Provider] - 2 days Print Language: Barbadian
== END 2021-09-14 22:12 | disposition home or self-care (01) ==
PROVIDERS: Emergency Provider Student in an Organized Health Care Education/Training Program; PCP Internal Medicine
DX: Z03.89 Encounter for observation for other suspected diseases and conditions ruled out (principal); Z20.822 Contact with and (suspected) exposure to COVID-19
CPT/HCPCS: 36415; 87635; 99283

== ENCOUNTER 2021-10-17 09:55 | Outpatient (RCR) | payer MEDICARE, MEDICAID, SELFPAY ==
--- NOTE | 2021-10-17 12:34 | MHC.PT.EP ---
[facility] [place] Office [place] Office [place] Office [address] Andrew Torres [address] [phone] F: [phone] F: [phone] F: [phone] F: [phone] Physical Therapy Plan of Care Date of Evaluation: Date of Surgery: Diagnosis: Pain in R shoulder Assessment: Pt is a 65yo F who presents to PT with chronic R shoulder pain. She presents today with current impairments in pain, decreased ROM, decreased strength, impaired posture, and soft tissue restrictions. She is TTP throughout anterior shoulder, R UT, levator, medial scap border and upper thoracic spine. She is (+) Hawkin's mil[place] and (+) Empty can on R UE. She is limited functionally by laying, reaching, and overhead ADLs. Her signs and symptoms may be consistent with R shoulder impingement. She is a good candidate for skilled PT services to address current impairments in order to facilitate return to PLOF. Frequency and Duration: The patient will be seen 2x/week for 4 weeks Short Term Goals: Pt will be I with HEP to promote self management of symptoms Pt will improve R shoulder flexion by at least 10 degrees Fci Goals: Pt will perform overhead ADLs with minimal to no compensation with pain < 4 / 10 Pt will demonstrate full ROM throughout R shoulder Pt will improve R shoulder flexion and ABD to at least 4/5 to assist with functional tasks Treatment Plan: Modalities to reduce pain, spasms and effusion. Manual therapy to restore motion and function. Therapeutic exercise to improve strength and flexibility. Neuromuscular re-education for posture and balance. Therapeutic activities to return to functional activities of daily living. Electronically signed by: Katya Lo, PT, DPT Please sign and return to therapist. Thank you for your referral.
--- NOTE | 2021-11-05 12:20 | MHC.PT.DC ---
[facility] [place] Office [place] Office [place] Office [address] Andrew Torres [address] [phone] F: [phone] F: [phone] F: [phone] F: [phone] Physical Therapy Discharge Report Diagnosis: Pain in R shoulder Date of Surgery: Date of Evaluation: 10/17/21 Date of Discharge: 11/05/21 Treatments to Date: 1 Cancellations to Date: 1 No Shows to Date: 3 Discharge Status: Visit Non-compliance Discharge Summary: Pt only attended initial PT evaluation on 10/17/21. She had 1 cancel and 3 no-shows since initial PT evaluation. [place] is being [place] [facility] [place] and visit non-compliance. Pt current level of function unknown at this time. Electronically signed by: Katya Lo, PT, DPT Please sign and return to therapist. Thank you for your referral.
== END 2021-11-05 12:21 | disposition home or self-care (01) ==
LOC: HO.PT 09:55
PROVIDERS: PCP Internal Medicine; Visit Provider Internal Medicine
DX: M25.511 Pain in right shoulder (principal)
CPT/HCPCS: 97162

== ENCOUNTER → 2021-11-26 11:37 | Outpatient (REF) | payer MEDICARE, MEDICAID, SELFPAY ==
--- NOTE | 2021-11-26 12:07 | ECG_ITS ---
Test Reason : dizziness giddiness Blood Pressure : / mmHG Vent. Rate : 062 BPM Atrial Rate : 062 BPM P-R Int : 132 ms QRS Dur : 080 ms QT Int : 414 ms P-R-T Axes : 064 -13 052 degrees QTc Int : 420 ms Normal sinus rhythm Minimal voltage criteria for LVH, may be normal variant ( R in aVL ) Nonspecific T wave abnormality Abnormal ECG When compared with ECG of 03-MAR-2021 00:33, Premature atrial complexes are no longer Present Referred By: Rosa Urena Electronically Signed By:Jorge Kramer
[2021-11-26 12:41] LABS: Hematocrit 35.1 % (37.0-47.0); Hemoglobin 11.2 g/dl (12.0-16.0); Mean Corpuscular HGB Conc 31.9 g/dl (31.0-35.0); Mean Corpuscular Hemoglobin 29.2 pg (27.0-33.0); Mean Corpuscular Volume 91.6 fL (80.0-98.0); Mean Platelet Volume 11.8 fL (9.4-12.3); Platelet Count 274 X10*3/uL (160-400); Red Blood Count 3.83 X10*6/uL (4.20-5.50); Red Cell Distribution Width 13.3 % (11.0-16.0); White Blood Count 8.6 X10*3/uL (4.8-10.8)
[2021-11-26 13:07] LABS: Alanine Aminotransferase 17 U/L (0-31); Albumin Level 3.8 g/dL (3.5-5.0); Alkaline Phosphatase 157 U/L (39-117); Anion Gap 12 (12-20); Aspartate Amino Transferase 17 U/L (5-31); Bilirubin Total 0.4 mg/dL (0.0-1.0); Blood Urea Nitrogen 16 mg/dL (9-16); Calcium 9.3 mg/dL (8.4-10.2); Carbon Dioxide 29 mmol/L (22-29); Chloride 103 mmol/L (96-108); Estimated Glomerular Filt Rate > 60; Glucose Random 195 mg/dL (60-115); Potassium 4.6 mmol/L (3.3-5.1); Sodium 139 mmol/L (135-145); Total Protein 6.7 g/dL (6.5-8.0)
[2021-11-26 13:29] LABS: TSH reflex Free T4 0.97 uIU/mL (0.32-4.0); Vitamin D 25-OH Total 40.3 ng/mL (>30)
[2021-11-27 20:20] LABS: Vitamin B12 427 pg/mL (200-900)
== END ==
LOC: HO.CARD 11:37
PROVIDERS: PCP Internal Medicine; Visit Provider Nurse Practitioner Family
DX: R53.83 Other fatigue (principal); R42 Dizziness and giddiness; M25.562 Pain in left knee; G89.29 Other chronic pain; M25.511 Pain in right shoulder; M25.512 Pain in left shoulder
CPT/HCPCS: 36415; 80053; 82306; 82607; 82746; 84443; 85027; 93005; 99212

== ENCOUNTER 2021-12-10 12:16 | Outpatient (REF) | payer MEDICARE, MEDICAID, SELFPAY ==
--- NOTE | ~2021-12-10 | CT_ITS ---
EXAMINATION: CT HEAD WITHOUT CONTRAST CLINICAL INFORMATION: Dizziness and giddiness COMPARISON: Previous head CT August 2019 and brain MRI August 2019 TECHNIQUE: Contiguous axial imaging was performed from the skull base to vertex without intravenous administration of contrast. This CT examination was performed using dose optimization techniques as appropriate, variously including the following: *Automated exposure control *Adjustment of mA and/or kV according to patient size (this includes techniques or standardized protocols for targeted exams where dose is matched to indication/reason for exam; i.e. extremities or head) *Use of iterative reconstruction technique DLP: 751 mGy-cm FINDINGS: There is no evidence of acute intracranial hemorrhage or territorial infarction. No abnormal mass effect or midline shift is seen. [place] to white matter differentiation is well preserved. No extra-axial fluid collections are identified. The ventricles are normal in size. There is no abnormal attenuation within the brain parenchyma. The osseous structures and soft tissues are normal. The mastoid air cells and visualized portions of the paranasal sinuses are well aerated. CT/CT head/brain wo con IMPRESSION: Unremarkable exam.
== END 2021-12-10 12:17 | disposition home or self-care (01) ==
LOC: HO.CT 12:16
PROVIDERS: PCP Internal Medicine; Visit Provider Nurse Practitioner Family
DX: R42 Dizziness and giddiness (principal); R26.89 Other abnormalities of gait and mobility
CPT/HCPCS: 70450

== ENCOUNTER → 2022-03-12 12:50 | Outpatient (BNVA) | payer MEDICARE, MEDICAID, SELFPAY | PROVIDERS: PCP Internal Medicine; Referring Provider Internal Medicine; Visit Provider Nurse Practitioner Family | DX: K59.01 Slow transit constipation (principal); K52.9 Noninfective gastroenteritis and colitis, unspecified; Z12.11 Encounter for screening for malignant neoplasm of colon | CPT/HCPCS: 99202; 99212 ==

== ENCOUNTER → 2022-05-02 09:53 | Outpatient (BNVA) | payer MEDICARE, MEDICAID, SELFPAY | PROVIDERS: PCP Internal Medicine; Visit Provider Advanced Practice Midwife | DX: Z01.419 Encounter for gynecological examination (general) (routine) without abnormal findings (principal); L29.2 Pruritus vulvae; R10.32 Left lower quadrant pain | CPT/HCPCS: 99212 ==

== ENCOUNTER 2022-05-12 14:28 | Outpatient (REF) | payer MEDICARE, MEDICAID, SELFPAY ==
--- NOTE | ~2022-05-12 | XR_ITS ---
EXAMINATION: XR ABDOMEN KUB CLINICAL INDICATION: Constipation. COMPARISON: CT abdomen/pelvis 03/02/2021. TECHNIQUE: AP view of the abdomen. FINDINGS: Nonobstructive bowel gas pattern. No significant stool burden. Right lower abdomen colonic sutures are noted. Right upper quadrant surgical clips are seen. No acute osseous abnormalities. Small pelvic phleboliths. XR/XR KUB IMPRESSION: Nonobstructive bowel gas pattern. No significant stool burden.
[2022-05-12 15:23] LABS: Alanine Aminotransferase 18 U/L (0-31); Albumin Level 4.2 g/dL (3.5-5.0); Alkaline Phosphatase 160 U/L (39-117); Anion Gap 14 (12-20); Aspartate Amino Transferase 21 U/L (5-31); Bilirubin Total 0.4 mg/dL (0.0-1.0); Blood Urea Nitrogen 16 mg/dL (9-16); Carbon Dioxide 25 mmol/L (22-29); Chloride 105 mmol/L (96-108); Cholesterol 90 mg/dL; Estimated Glomerular Filt Rate 60; Glucose Fasting 91 mg/dL (60-99); HDL Cholesterol 34 mg/dL; LDL Cholesterol Calculated 36 mg/dl; Lipase 41 U/L (8-78); Potassium 4.7 mmol/L (3.3-5.1); Sodium 139 mmol/L (135-145); Total Protein 7.4 g/dL (6.5-8.0); Triglycerides 104 mg/dL
[2022-05-12 15:43] LABS: Vitamin D 25-OH Total 41.2 ng/mL (>30)
[2022-05-12 16:07] LABS: Microalbum/Creatinine Ratio Ur 5.6 ug/mg cr
== END 2022-05-12 14:29 | disposition home or self-care (01) ==
LOC: HO.XRAY 14:28
PROVIDERS: PCP Internal Medicine; Visit Provider Nurse Practitioner Family
DX: R10.12 Left upper quadrant pain (principal); K59.00 Constipation, unspecified; K58.2 Mixed irritable bowel syndrome; K21.9 Gastro-esophageal reflux disease without esophagitis; E11.9 Type 2 diabetes mellitus without complications; E78.5 Hyperlipidemia, unspecified; E55.9 Vitamin D deficiency, unspecified; M25.50 Pain in unspecified joint
CPT/HCPCS: 36415; 74018; 80053; 80061; 82043; 82306; 83690; 99212; Q3014

== ENCOUNTER 2022-06-13 11:20 | Outpatient (REF) | payer MEDICARE, MEDICAID, SELFPAY ==
--- NOTE | ~2022-06-13 | US_ITS ---
EXAMINATION: US PELVIS CLINICAL INFORMATION: Left lower quadrant pain. COMPARISON: CT scan of the abdomen and pelvis dated 03/02/2021. TECHNIQUE: Ultrasound of the pelvis is performed using both transabdominal and transvaginal transducers along with Doppler. Transvaginal imaging is performed due to inadequate visualization transabdominally. FINDINGS: Uterus: 5.7 x 4.3 x 3.9 with a volume of 50 mL. Intramural/subserosal fibroid in the posterior fundus measures 2.6 x 2.5 x 2.2 cm. This displaces and splays the adjacent endometrium anteriorly. The uninvolved endometrium demonstrates homogeneous echotexture and measures up to 0.6 cm. Color Doppler showed no abnormal vascular flow. The cervix is closed without abnormality. No free fluid in the cul-de-sac. Right ovary: 1.1 x 1.0 x 0.9 with a volume of 0.5 mL. Color Doppler showed no abnormal vascular flow. Left ovary: 1.5 x 1.1 x 1.2 cm with a volume of 1.0 mL. Color Doppler showed no abnormal vascular flow. US/US pelvic and transvaginal IMPRESSION: 1. Intramural/submucosal uterine fibroid. This displaces the adjacent endometrium without definitive focal abnormality. 2. No left adnexal abnormality to explain the patient's left lower quadrant pain.
== END 2022-06-13 11:21 | disposition home or self-care (01) ==
LOC: HO.US 11:20
PROVIDERS: Visit Provider Advanced Practice Midwife
DX: R10.32 Left lower quadrant pain (principal)
CPT/HCPCS: 76830; 76856

== ENCOUNTER 2022-07-14 11:36 | Day surgery (SDC) | payer MEDICARE, MEDICAID, SELFPAY ==
[2022-07-09 13:51] VITALS: BMI 33.8
--- NOTE | 2022-07-11 11:56 | HO.ANESPROP2 ---
Documented by User: Bertha Hardin NP 07/11/22 11:57 HPI - Anesthesia Eval Consult details Narrative: 66yo F for Upper Endoscopy and Colonoscopy PMFSH Active Problems Active Problems: All Active Problems (Updated 06/19/22 @ 09:40 by Aure Horton MD) Physical exam (Acute) Balance problem (Acute) Dizziness (Acute) Fatigue (Acute) Adult general medical exam (Acute) Post-menopausal (Acute) Screening for colon cancer (Acute) Right shoulder pain (Acute) Lab test negative for COVID-19 virus (Acute) Osteoarthritis of left knee (Acute) Chronic pain of both shoulders (Acute) Mild depression (Acute) Groin rash (Acute) Encounter for annual routine gynecological examination (Acute) Asthma (Acute) Back pain (Acute) Abdominal pain (Acute) Vaginal pruritus (Acute) Vitamin D deficiency (Acute) Left knee pain (Acute) Left ankle pain (Acute) Depression with anxiety (Acute) Polyarthralgia (Acute) Pure hypercholesterolemia (Acute) Essential hypertension (Acute) Diabetes mellitus (Acute) GERD (gastroesophageal reflux disease) (Acute) Past Medical History Medical History (Updated 06/19/22 @ 09:40 by Aure Horton MD) Abdominal pain Asthma Back pain Depression with anxiety Diabetes mellitus Essential hypertension Exposure to COVID-19 virus Left ankle pain Left knee pain Mild depression Polyarthralgia Pure hypercholesterolemia Right shoulder pain TIA (transient ischemic attack) Vaginal pruritus Vitamin D deficiency Family History Family History Father No problems noted. Mother Hypertension Stroke Diabetes Brother Leptospirosis Brother No problems noted. Family/Other FH: mental illness Surgical History Surgical History History of appendectomy History of cholecystectomy History of colonoscopy History of cyst of breast History of exploratory laparotomy History of hemicolectomy History of tooth extraction Social History Social History Housing: Apartment Alcohol intake: never Patient Tobacco Use Status: Never used Tobacco e-Cigarette/Vaping Use: Never Used Second Hand Smoke Exposure: No Use of substances other than those prescribed or required for medical reasons: No Advance Directives: No Advance Directives Information Provided: Yes Nutrition Risks: No Nutritional Risk service: No Current occupational status: unemployed Sexual orientation: Straight/Heterosexual Gender identity: Female Cognitive needs: Yes Hearing needs: No Vision needs: Yes Meds Allergies Allergy/AdvReac Type Severity Reaction Status Date / Time Penicillins Allergy Intermediate DIZZINESS, Verified 06/19/22 09:39 RASH tramadol [TRAMADOL] Allergy Intermediate NAUSEA & Verified 06/19/22 09:39 VOMITING egg [Egg] AdvReac Intermediate NAUSEA & Verified 06/19/22 09:39 VOMITING morphine AdvReac Intermediate Chest Pain Verified 06/19/22 09:39 FANY DRINK Allergy Intermediate NAUSEA & Uncoded 06/19/22 09:39 VOMITING Home Medications Medication Instructions Recorded Confirmed Last Taken Type alcohol swabs pad topical 09/11/20 06/19/22 Unknown History citalopram 20 mg tablet mg PO 09/11/20 06/19/22 Unknown History Exam Exam Date and Time: July 11, 2022 1156 Height,Weight and Vital Signs: Height 5 ft 1 in Weight 81.193 kg Pertinent Lab Results Pertinent Lab Results: Laboratory Tests 11/26/21 05/12/22 12:05 14:38 WBC 8.6 Hgb 11.2 L Hct 35.1 L Plt Count 274 Sodium 139 Potassium 4.7 Chloride 105 Carbon Dioxide 25 BUN 16 Creatinine 0.93 Narrative Narrative: EKG 11/2021 Vent. Rate : 062 BPM ? ? Atrial Rate : 062 BPM ?? P-R Int : 132 ms? QRS Dur : 080 ms ? ? QT Int : 414 ms ? ? ? P-R-T Axes : 064 -13 052 degrees ?? QTc Int : 420 ms ? Normal sinus rhythm Minimal voltage criteria for LVH, may be normal variant ( R in aVL ) Nonspecific T wave abnormality Abnormal ECG When compared with ECG of 03-MAR-2021 00:33, Premature atrial complexes are no longer Present Assessment and Plan Assessment Anesthesia Assessment: Chart Reviewed Documented by User: Jannie Muñoz MD 07/14/22 13:33 PMF Past Medical History Medical History (Updated 06/19/22 @ 09:40 by Aure Horton MD) Abdominal pain Asthma Back pain Depression with anxiety Diabetes mellitus Essential hypertension Exposure to COVID-19 virus Left ankle pain Left knee pain Mild depression Polyarthralgia Pure hypercholesterolemia Right shoulder pain TIA (transient ischemic attack) Vaginal pruritus Vitamin D deficiency Family History Family History Father No problems noted. Mother Hypertension Stroke Diabetes Brother Leptospirosis Brother No problems noted. Family/Other FH: mental illness Family history of problems with anesthesia: No Surgical History Surgical History History of appendectomy History of cholecystectomy History of colonoscopy History of cyst of breast History of exploratory laparotomy History of hemicolectomy History of tooth extraction History of Problems with Anesthesia: No Social History Social History Housing: Apartment Alcohol intake: never Patient Tobacco Use Status: Never used Tobacco e-Cigarette/Vaping Use: Never Used Second Hand Smoke Exposure: No Use of substances other than those prescribed or required for medical reasons: No Advance Directives: No Advance Directives Information Provided: Yes Nutrition Risks: No Nutritional Risk service: No Current occupational status: unemployed Sexual orientation: Straight/Heterosexual Gender identity: Female Cognitive needs: Yes Hearing needs: No Vision needs: Yes Meds Allergies Allergy/AdvReac Type Severity Reaction Status Date / Time Penicillins Allergy Intermediate DIZZINESS, Verified 06/19/22 09:39 RASH tramadol [TRAMADOL] Allergy Intermediate NAUSEA & Verified 06/19/22 09:39 VOMITING egg [Egg] AdvReac Intermediate NAUSEA & Verified 06/19/22 09:39 VOMITING morphine AdvReac Intermediate Chest Pain Verified 06/19/22 09:39 FANY DRINK Allergy Intermediate NAUSEA & Uncoded 06/19/22 09:39 VOMITING Home Medications Medication Instructions Recorded Confirmed Last Taken Type alcohol swabs pad topical 09/11/20 06/19/22 Unknown History citalopram 20 mg tablet mg PO 09/11/20 06/19/22 Unknown History Exam Airway Mallampati Class: II TM Dist: >3cm Neck ROM: Full Heart: rrr Lungs: cta Assessment and Plan Assessment Anesthesia Assessment: Anesthesia Plan Discussed and Chart Reviewed Final Anesthetic Review Family History of Problems with Anesthesia: No History of Problems with Anesthesia: No NPO: Yes ASA Class: III Final Preanesthetic Review: No Changes in Pt Med Stat, Meds/Allgs Chart Reviewed and Consent Obtained/Reviewed Patient Risk: Intermediate Procedure Risk: Intermediate Anesthetic Plan Anesthetic Plan: MAC: Disposition: Standard PACU
[2022-07-14 13:02] VITALS: BP 153/61; PULSE 61; RESP 16; TEMP 36.1; O2SAT 96
[2022-07-14 13:20] LABS: Glucose, Whole Blood 123 mg/dL (60-115)
--- NOTE | 2022-07-14 14:19 | P.HPSUR_ITS ---
Pre-Procedural Eval Section A Date of Service: 07/14/22 The patient is an INPATIENT: No The History & Physical has been completed within 30 days and I have reviewed it.: No Section B Chief Complaint: screening,reflux disease Relevant Family History (Specify if Yes): No Relevant Social History: None Present Medications: see Short Stay Collaborative assessment Medical History: Significant History (Abdominal pain Asthma Back pain Depression with anxiety Diabetes mellitus Essential hypertension Exposure to COVID-19 virus Left ankle pain Left knee pain Mild depression Polyarthralgia Pure hypercholesterolemia Right shoulder pain TIA (transient ischemic attack) Vaginal pruritus Vitamin D deficienc) History of Previous Operations: Relevant previous surgery/procedure and date(s) (History of appendectomy History of cholecystectomy History of colonoscopy History of cyst of breast History of exploratory laparotomy History of hemico lectomy) Allergies: Allergies Allergy/AdvReac Type Severity Reaction Status Date / Time Penicillins Allergy Intermediate DIZZINESS, Verified 06/19/22 09:39 RASH tramadol [TRAMADOL] Allergy Intermediate NAUSEA & Verified 06/19/22 09:39 VOMITING egg [Egg] AdvReac Intermediate NAUSEA & Verified 06/19/22 09:39 VOMITING morphine AdvReac Intermediate Chest Pain Verified 06/19/22 09:39 FANY DRINK Allergy Intermediate NAUSEA & Uncoded 06/19/22 09:39 VOMITING Review of Systems Sugical H&P ROS: Negative: Constitution, Cardiovascular, Respiratory and Gastrointestinal Exam Surgical H&P Exam: Normal: Heart, Normal: Lungs, Normal: Extremities and Normal: Abdomen Plan Diagnosis/Plan: Unchanged I have reviewed the history and physical and performed a pertinent physical examination on my patient. No changes have occurred unless specified.
--- NOTE | 2022-07-14 14:35 | PM.OP ---
Brief Operative Note Date of Service: 07/14/22 Pre-op diagnosis: Colon cancer screening, postprandial diarrhea, GERD Post-op diagnosis: other (GERD, hiatal hernia, Gastritis, duodenal diverticulum, diverticulosis, hemorrhoids) Procedure: FLEXIBLE TRANSORAL UPPER GASTROINTESTINAL ENDOSCOPY WITH BIOPSIES AND COLONOSCOPY TILL CECUM WITH BIOPSIES UPPER ENDOSCOPY Consent: Indications for the procedure and potential complications of bleeding, perforation, reaction to medications and missed diagnosis were discussed with the patient and informed consent was obtained. Instrument: Olympus GIF H 190 mid size upper endoscope Monitoring: Vital signs and clinical assessment, continuous EKG monitoring, Pulse oximetry, Carbon Dioxide monitoring and blood pressure monitoring were done throughout the procedure. Procedure: The patient was placed in the left lateral decubitis position and pre-procedure medications were administered and a bite block was placed. The endoscope was inserted into the mouth and advanced under direct vision to the third part of duodenum. A careful inspection was made as the upper endoscope was withdrawn including a retroflexed examination of the proximal stomach; Findings and interventions are described below. Findings: Larynx: Normal Esophagus: GE junction at 30 cms, hiatal hernia 30 to 35 cms. No esophagitis or Taylor's. Stomach: Multiple 1-2 cms benign appearing polyps in the gastric body - biopsied. Mild gastric antral erythema. Biopsies were obtained. Grade 4 flap valve on retroflexed examination of the cardia. Duodenum: Normal bulb and small diverticulum in the descending duodenum. Biopsies obtained from 3rd part of the duodenum to check for celiac sprue Intervention: Biopsies as noted above COLONOSCOPY PROCEDURE NOTE Consent: Indications for the procedure and potential complications of bleeding, perforation, reaction to medications and missed diagnosis were discussed with the patient and informed consent was obtained. Instrument: Olympus PCF H 190 L variable stiffness pediatric colonoscope Monitoring: Vital signs and clinical assessment, intermittent blood pressure monitoring, continuous EKG monitoring, Pulse oximetry and Carbon Dioxide monitoring were done throughout the procedure. Colon withdrawl time was 15 minutes. Procedure: The patient was placed in the left lateral decubitis position and pre-procedure medications were administered. After a digital rectal examination of the ano-rectum, the video colonoscope was inserted into the rectum and advanced through the colon to the cecum. The colonoscope was slowly withdrawn in a retrograde panoramic fashion and the colon mucosa was carefully examined including a retroflexed view of the rectum. Findings and interventions are described below. Procedure Difficulty: : Without difficulty Findings: Ascending Colon: Normal anastomosis seen in the right colon. Scattered moderate diverticulosis throughout the colon Transverse Colon: Scattered moderate diverticulosis throughout the colon Descending Colon: Scattered moderate diverticulosis throughout the colon Sigmoid Colon: Moderate diverticulosis Rectum: Normal Ano-rectum: Moderate internal hemorrhoids Colon preparation: Good after copious irrigation and Fair to poor in the right colon Impression and Post Procedure Diagnosis: Endoscopy Findings: ESOPHAGUS: GE junction at 30 cms, hiatal hernia 30 to 35 cms. No esophagitis or Taylor's. STOMACH: Multiple 1-2 cms benign appearing polyps in the gastric body - biopsied. Mild gastric antral erythema. Biopsies were obtained. Grade 4 flap valve on retroflexed examination of the cardia. DUODENUM: Normal bulb and small diverticulum in the descending duodenum. Biopsies obtained from 3rd part of the duodenum to check for celiac sprue Colonoscopy Findings: No polyps were detected. Random biopsies were obtained from the right and left colon Moderate diverticulosis seen in the entire colon Moderate hemorrhoids on retroflexed exam. Plan: Await pathology results Patient has an appointment on 07/30/22 in the GI [facility] with Nishi Jimenez FNP-BC. Repeat Colonoscopy interval based on path results - in 3 years if biopsies are normal due to sub-optimal prep. Hiatal hernia, gastric polyps and diverticulosis handouts were given in the discharge area Surgeon: Annabel Sanchez MD Anesthesia: MAC Was an Lithographic Press Feeder used for this Procedure?: Yes Lithographic Press Feeder: Pia Bowman Estimated blood loss (mL): 0 Pathology: other (A. small bowel bxs, R/O celiac B. gastric antrum bxs, R/O H. pylori C. gastric polyps D. right colon biopsies, R/O microscopic colitis E. left colon bxs, R/O microscopic colitis) Condition: stable Disposition: PACU
[2022-07-14 15:16] VITALS: BP 106/51; PULSE 99; RESP 16; TEMP 36.9; O2SAT 95
--- NOTE | 2022-07-14 15:18 | P.OP_ITS ---
Operative Note Operative Note Date of Service: 07/14/22 Narrative: Pre-op diagnosis: Colon cancer screening, postprandial diarrhea, GERD Post-op diagnosis:?other (GERD, hiatal hernia, Gastritis, duodenal diverticulum, diverticulosis, hemorrhoids) Procedure: FLEXIBLE TRANSORAL UPPER GASTROINTESTINAL ENDOSCOPY WITH BIOPSIES AND COLONOSCOPY TILL CECUM WITH BIOPSIES UPPER ENDOSCOPY Consent:?Indications for the procedure and potential complications of bleeding, perforation, reaction to medications and missed diagnosis were discussed with the patient and informed consent was obtained. Instrument:?Olympus GIF H 190 mid size upper endoscope Monitoring: Vital signs and clinical assessment, continuous EKG monitoring, Pulse oximetry, Carbon Dioxide monitoring and blood pressure monitoring were done throughout the procedure. Procedure:?The patient was placed in the left lateral decubitis position and pre-procedure medications were administered and a bite block was placed. The endoscope was inserted into the mouth and advanced under direct vision to the third part of duodenum. A careful inspection was made as the upper endoscope was withdrawn including a retroflexed examination of the proximal stomach; Findings and interventions are described below. Findings: Larynx:? Normal Esophagus:?GE junction at 30 cms, hiatal hernia 30 to 35 cms. No esophagitis or Taylor's. Stomach:?Multiple 1-2 cms benign appearing polyps in the gastric body - biopsied. Mild gastric antral erythema. Biopsies were obtained. Grade 4 flap valve on retroflexed examination of the cardia. Duodenum:?Normal bulb and small diverticulum in the descending duodenum. Biopsies obtained from 3rd part of the duodenum to check for celiac sprue Intervention:?Biopsies as noted above COLONOSCOPY PROCEDURE NOTE Consent:?Indications for the procedure and potential complications of bleeding, perforation, reaction to medications and missed diagnosis were discussed with the patient and informed consent was obtained. Instrument:?Olympus PCF H 190 L variable stiffness pediatric colonoscope Monitoring:?Vital signs and clinical assessment, intermittent blood pressure monitoring, continuous EKG monitoring, Pulse oximetry and Carbon Dioxide monitoring were done throughout the procedure. Colon withdrawl time was 15 minutes. Procedure:?The patient was placed in the left lateral decubitis position and pre-procedure medications were administered. After a digital rectal examination of the ano-rectum, the video colonoscope was inserted into the rectum and advanced through the colon to the cecum. The colonoscope was slowly withdrawn in a retrograde panoramic fashion and the colon mucosa was carefully examined including a retroflexed view of the rectum. Findings and interventions are described below. Procedure Difficulty:?: Without difficulty Findings: Ascending Colon:??Normal anastomosis seen in the right colon. Scattered moderate diverticulosis throughout the colon Transverse Colon: ??Scattered moderate diverticulosis throughout the colon Descending Colon:? Scattered moderate diverticulosis throughout the colon Sigmoid Colon:??Moderate diverticulosis Rectum:??Normal Ano-rectum:??Moderate internal hemorrhoids Colon preparation:? Good after copious irrigation and Fair to poor in the right colon Impression and Post Procedure Diagnosis: Endoscopy Findings: ESOPHAGUS:?GE junction at 30 cms, hiatal hernia 30 to 35 cms. No esophagitis or Taylor's. STOMACH:?Multiple 1-2 cms benign appearing polyps in the gastric body - biopsied. Mild gastric antral erythema. Biopsies were obtained. Grade 4 flap valve on retroflexed examination of the cardia. DUODENUM:?Normal bulb and small diverticulum in the descending duodenum. Biopsies obtained from 3rd part of the duodenum to check for celiac sprue Colonoscopy Findings: No polyps were detected. Random biopsies were obtained from the right and left colon Moderate diverticulosis seen in the entire colon Moderate hemorrhoids on retroflexed exam. Plan: Await pathology results Patient has an appointment on 07/30/22 in the GI Clinic with Nishi Jimenez FNP-BC. Repeat Colonoscopy interval based on path results - in 3 years if biopsies are normal due to sub-optimal prep. Hiatal hernia, gastric polyps and diverticulosis handouts were given in the discharge area Surgeon: Annabel Sanchez MD Anesthesia:?MAC Was an Risk And Compliance Analytics Director used for this Procedure?:?Yes Risk And Compliance Analytics Director:?Pia Bowman Estimated blood loss (mL):?0 Pathology:?other (A. small bowel bxs, R/O celiac? B. gastric antrum bxs, R/O H. pylori? C. gastric polyps? D. right colon biopsies, R/O microscopic colitis? E. left colon bxs, R/O microscopic colitis) Condition:?stable Disposition:?PACU
[2022-07-14 15:31] VITALS: BP 129/69; PULSE 84; RESP 18; O2SAT 95
[2022-07-14 15:46] VITALS: BP 127/63; PULSE 71; RESP 21; O2SAT 96
[2022-07-14 16:01] VITALS: BP 134/59; PULSE 71; RESP 18; O2SAT 98
[2022-07-14 16:16] VITALS: BP 136/63; PULSE 78; RESP 18; TEMP 36.7; O2SAT 98
== END 2022-07-14 17:07 | disposition home or self-care (01) ==
PROVIDERS: PCP Internal Medicine; Visit Provider Internal Medicine Gastroenterology
PROC: (CPT 45380; principal; 2022-07-14 13:10)
DX: Z12.11 Encounter for screening for malignant neoplasm of colon (principal); K57.30 Diverticulosis of large intestine without perforation or abscess without bleeding; K64.8 Other hemorrhoids; K21.9 Gastro-esophageal reflux disease without esophagitis; K29.50 Unspecified chronic gastritis without bleeding; K31.7 Polyp of stomach and duodenum; K57.10 Diverticulosis of small intestine without perforation or abscess without bleeding; I10 Essential (primary) hypertension; J45.909 Unspecified asthma, uncomplicated; K44.9 Diaphragmatic hernia without obstruction or gangrene; E11.9 Type 2 diabetes mellitus without complications; F33.0 Major depressive disorder, recurrent, mild; E55.9 Vitamin D deficiency, unspecified; Z79.82 Long term (current) use of aspirin; Z79.1 Long term (current) use of non-steroidal anti-inflammatories (NSAID); Z79.899 Other long term (current) drug therapy; Z88.0 Allergy status to penicillin; Z88.8 Allergy status to other drugs, medicaments and biological substances; Z86.73 Personal history of transient ischemic attack (TIA), and cerebral infarction without residual deficits; Z90.49 Acquired absence of other specified parts of digestive tract; Z98.0 Intestinal bypass and anastomosis status
CPT/HCPCS: 45380; 43239; 82947; 88305; 88342; J2370; J3010

== ENCOUNTER → 2022-07-30 16:20 | Outpatient (BNVA) | payer MEDICARE, MEDICAID, SELFPAY | PROVIDERS: PCP Internal Medicine; Visit Provider Nurse Practitioner Family | DX: K21.9 Gastro-esophageal reflux disease without esophagitis (principal); K44.9 Diaphragmatic hernia without obstruction or gangrene; K58.9 Irritable bowel syndrome, unspecified; Z98.890 Other specified postprocedural states | CPT/HCPCS: 99212 ==

== ENCOUNTER 2022-08-17 16:39 | Emergency (ER) | payer MEDICARE, MEDICAID, SELFPAY ==
[2022-08-17 18:05] VITALS: BP 136/73; PULSE 67; RESP 18; TEMP 36.4; O2SAT 99; BMI 32.5
--- NOTE | 2022-08-17 20:45 | ED.WOUNDLAC ---
HPI - Wound/Laceration General Chief Complaint: Wound/Laceration Stated Complaint: finger lac Time Seen by Provider: 08/17/22 20:44 Source: patient Mode of arrival: ambulatory Limitations: language barrier History of Present Illness HPI narrative: 66-year-old female presents for laceration to her right 4th finger. Onset (ago): hour(s) (Within the hour of arrival) Extremity Location: right: hand (4th fingers) Place: home Patient tetanus UTD: No Context: accidental Associated symptoms: pain Treatments prior to arrival: bandage Related Data Home Medications Medication Instructions Recorded Confirmed alcohol swabs pad topical 09/11/20 06/19/22 citalopram 20 mg tablet mg PO 09/11/20 06/19/22 Previous Rx's Medication Instructions Recorded acetaminophen 650 mg 650 mg PO Q8H PRN pain #90 tabs 10/23/20 tablet,extended release (Tylenol Arthritis Pain) ibuprofen 800 mg tablet 800 mg PO Q8H PRN pain 7 days #21 03/05/21 tabs nebulizers (AeroEclipse II #1 ea 04/01/21 Nebulizer) albuterol sulfate 2.5 mg/3 mL 2.5 mg (3 mL) inhalation Q4-6H PRN 04/10/21 (0.083 %) solution for nebulization shortness of breath or wheezing 30 days #75 mL atenolol 50 mg tablet 50 mg PO DAILY 90 days #90 tabs 05/31/21 gabapentin 100 mg capsule 100 mg PO BEDTIME 30 days #30 caps 09/06/21 walker #1 ea 11/08/21 aspirin 81 mg tablet,delayed 81 mg PO DAILY 90 days #90 tabs 02/21/22 release clotrimazole-betamethasone 1 1 appl topical BID PRN itching 7 03/12/22 %-0.05 % topical cream days #45 grams amlodipine 5 mg tablet 5 mg PO DAILY #30 tabs 03/20/22 buspirone 10 mg tablet 10 mg PO BID 90 days #180 tabs 04/28/22 atorvastatin 20 mg tablet 20 mg PO BEDTIME 90 days #90 tabs 05/12/22 omeprazole 20 mg capsule,delayed 20 mg PO DAILY #90 caps 07/30/22 release Allergies Allergy/AdvReac Type Severity Reaction Status Date / Time Penicillins Allergy Intermediate DIZZINESS, Verified 07/30/22 16:24 RASH tramadol [TRAMADOL] Allergy Intermediate NAUSEA & Verified 07/30/22 16:24 VOMITING egg [Egg] AdvReac Intermediate NAUSEA & Verified 07/30/22 16:24 VOMITING morphine AdvReac Intermediate Chest Pain Verified 07/30/22 16:24 FANY DRINK Allergy Intermediate NAUSEA & Uncoded 06/19/22 09:39 VOMITING Review of Systems Review of Systems: Constitutional: No Fever, No Chills ENT/Mouth: No Ear Pain, No Hoarseness, No sore throat Eyes: No Eye Pain, No Swelling, No Redness, No Foreign Body Cardiovascular: No Chest Pain, No SOB Respiratory: No Cough, No Dyspnea Gastrointestinal: No Nausea, No Vomiting, No Diarrhea, No abdominal Pain Genitourinary: No Dysuria, No Hematuria Musculoskeletal: positive right 4th finger pain, No Myalgias, No Joint Swelling Skin: Right 4th finger laceration, No rash Neuro: No Weakness, No Numbness, No Paresthesias, No Loss of Consciousness, No Dizziness, No Headache Psych: No Anxiety/Panic, No Depression Heme/Lymph: no easy bruising, no Lymphadenopathy Endocrine: No Polyuria, No Polydipsia Yes all other systems are reviewed and are negative PMFSH Past Medical History Attestation statement: The following information was validated with the patient. Source: old records reviewed Medical History Abdominal pain Asthma Back pain Depression with anxiety Diabetes mellitus Essential hypertension Exposure to COVID-19 virus Hiatal hernia Left ankle pain Left knee pain Mild depression Polyarthralgia Pure hypercholesterolemia Right shoulder pain TIA (transient ischemic attack) Vaginal pruritus Vitamin D deficiency Surgical History History of appendectomy History of cholecystectomy History of colonoscopy History of cyst of breast History of exploratory laparotomy History of hemicolectomy History of tooth extraction Family History Family History Father No problems noted. Mother Hypertension Stroke Diabetes Brother Leptospirosis Brother No problems noted. Family/Other FH: mental illness Social History Social History Housing: Apartment Alcohol intake: never Patient Tobacco Use Status: Never used Tobacco e-Cigarette/Vaping Use: Never Used Second Hand Smoke Exposure: No Advance Directives: No Advance Directives Information Provided: No service: No Current occupational status: unemployed Sexual orientation: Straight/Heterosexual Gender identity: Female Cognitive needs: Yes Hearing needs: No Vision needs: Yes Physical Exam Vital Signs: Vital Signs: Last Vital Signs Temp 97.5 F 08/17/22 18:05 Pulse 67 08/17/22 18:05 Resp 18 08/17/22 18:05 BP 136/73 08/17/22 18:05 Pulse Ox 99 08/17/22 18:05 O2 Del Method 08/17/22 18:05 BMI result Body Mass Index 32.5 Appearance: Alert. Oriented X3. No acute distress. Eyes: Pupils equal, round and reactive to light. ENT: Pharynx normal. Neck: Normal inspection. Neck supple. CVS: Normal heart rate and rhythm. Pulses normal. Respiratory: No respiratory distress. Breath sounds normal. Abdomen: Soft and nontender. Skin: 1 cm laceration at the PIP joint of the 4th finger, Skin warm and dry. Normal skin color. Normal skin turgor. Extremities: No lower extremity edema. Gait well-balanced well coordinated. Full range of motion to all digits. No indication of tendon deficit. Neuro: No motor deficit. No sensory deficit. Cranial nerves 2-12 intact Course Course Course Narrative: 66-year-old female presents for laceration to the dorsal aspect of the PIP joint on the 4th finger. 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 It is unknown when her last Tdap updated. She has full range of motion to digit, brisk refill no neurovascular deficit. Will update Tdap vaccine and suture. Prepped and draped in sterile fashion. Patient tolerated procedure well. Please refer to procedure note for full details. Patient verbalized understanding of and agrees to plan of care discharge home. Verbalized understanding of signs symptoms indicating need for emergent intervention. site interpreter utilized for all correspondence. Google translate utilized for discharge instructions. MDM - Wound/Laceration Differential Diagnosis Differential diagnosis: Likely laceration Medical Records Attestation: I reviewed the patient's medical records. Procedures Laceration Laceration 1: Site: upper extremity (Fourth right finger) Side (If applicable): right Size (cm): 1.5 Description: irregular Depth: simple, single layer Local Anesthetic: lidocaine 1% Amount of anesthesia used (mL): 2 Pre-repair: wound explored, irrigated extensively and deep structures intact Skin layer closed with: nylon Size (cm): 4-0 Number of sutures: 8 Technique: simple, interrupted Discharge Plan Discharge Clinical Impression: Finger laceration Patient Disposition: Home, Self-Care Instructions: Care For Your Stitches (ED), Finger Laceration (ED) Additional Instructions: Te evaluaron por laceraci?n en el dedo. Colocamos 8 puntos de sutura. Por favor, mantenga el ?kemal limpia y seca. Regrese en 10 a 14 d?as para que le quiten las suturas. Monitorear signos y s?ntomas que indiquen infecci?n. Si not? whitley infecci?n, regrese para whitley evaluaci?n. Jack por elegir fany departamento de emergencias para sullivan evaluaci?n. Por favor, radha un seguimiento con el m?dico de atenci?n primaria seg?n sea necesario. Regrese al departamento de emergencias por cualquier s?ntoma nuevo, preocupante o que empeore. You were evaluated for finger laceration. We placed 8 sutures. Please keep the area clean and dry. Return in 10-14 days to have sutures removed. Monitor for signs and symptoms indicating infection. If you noticed infection please return for evaluation. Thank you for choosing this emergency department for evaluation. Please follow-up with primary care physician as needed. Return to the emergency department for any new, concerning, or worsening symptoms. Prescriptions: No Action (DME) AeroEclipse II Nebulizer Misc See Rx Instructions .ROUTE .MEDSUPPLY Qty: 1 0RF Rx Instructions: As directed albuterol sulfate 2.5 mg /3 mL (0.083 %) solution for nebulization 2.5 mg inhalation Q4-6H PRN (Reason: shortness of breath or wheezing) 30 Days Qty: 75 2RF atenolol 50 mg tablet 50 mg PO DAILY 90 Days Qty: 90 2RF gabapentin 100 mg capsule 100 mg PO BEDTIME 30 Days Qty: 30 6RF (DME) walker Misc See Rx Instructions .ROUTE .MEDSUPPLY Qty: 1 0RF Rx Instructions: As Directed aspirin 81 mg tablet,delayed release (DR/EC) 81 mg PO DAILY 90 Days Qty: 90 3RF clotrimazole-betamethasone 1-0.05 % cream 1 appl topical BID PRN (Reason: itching) 7 Days Qty: 45 0RF amlodipine 5 mg tablet 5 mg PO DAILY Qty: 30 6RF buspirone 10 mg tablet 10 mg PO BID 90 Days Qty: 180 1RF atorvastatin 20 mg tablet 20 mg PO BEDTIME 90 Days Qty: 90 1RF alcohol swabs Pads, Medicated topical citalopram 20 mg tablet PO ibuprofen 800 mg tablet 800 mg PO Q8H PRN (Reason: pain) 7 Days Qty: 21 0RF acetaminophen [Tylenol Arthritis Pain] 650 mg tablet extended release 650 mg PO Q8H PRN (Reason: pain) Qty: 90 4RF omeprazole 20 mg capsule,delayed release(DR/EC) 20 mg PO DAILY Qty: 90 3RF Interventions: ED Discharge Assessment Last Done: 08/17/22 22:31 Discharge Date/Time: 08/17/22 22:32 Print Language: Slovenian
[2022-08-17] MEDS: Lidocaine HCl 1 % MPF 30 ML VIAL SUBCUT (21:59)
[2022-08-17] MEDS: Diphth,Pertus(ACell),Tet Adult 0.5 ML SYRINGE IM (21:59)
== END 2022-08-17 22:32 | disposition home or self-care (01) ==
PROVIDERS: Emergency Provider Emergency Medicine
DX: S61.214A Laceration without foreign body of right ring finger without damage to nail, initial encounter (principal); W26.8XXA Contact with other sharp object(s), not elsewhere classified, initial encounter; Y93.89 Activity, other specified; Y92.810 Car as the place of occurrence of the external cause; Y99.9 Unspecified external cause status
CPT/HCPCS: 12041; 90471; 90715; 99282; 99284

== ENCOUNTER 2022-09-04 12:56 | Emergency (ER) | payer MEDICARE, MEDICAID, SELFPAY ==
--- NOTE | 2022-09-04 13:47 | ED.EXTPRO ---
HPI - Extremity Problem General Chief complaint: General Medical Stated complaint: suture removal Time Seen by Provider: 09/04/22 13:46 Source: patient Mode of arrival: ambulatory History of Present Illness HPI Narrative: 66-year-old female presenting to the ED for suture removal from left 4th digit s/p cutting finger on a piece of metal. Patient was seen and treated in our ED after incident on 08/17 had 8 sutures placed. Denies any complaints at present including fever, chills, drainage from area Onset (ago): day(s) Related Data Home Medications Medication Instructions Recorded Confirmed alcohol swabs pad topical 09/11/20 06/19/22 citalopram 20 mg tablet mg PO 09/11/20 06/19/22 Previous Rx's Medication Instructions Recorded acetaminophen 650 mg 650 mg PO Q8H PRN pain #90 tabs 10/23/20 tablet,extended release (Tylenol Arthritis Pain) ibuprofen 800 mg tablet 800 mg PO Q8H PRN pain 7 days #21 03/05/21 tabs nebulizers (AeroEclipse II #1 ea 04/01/21 Nebulizer) albuterol sulfate 2.5 mg/3 mL 2.5 mg (3 mL) inhalation Q4-6H PRN 04/10/21 (0.083 %) solution for nebulization shortness of breath or wheezing 30 days #75 mL atenolol 50 mg tablet 50 mg PO DAILY 90 days #90 tabs 05/31/21 gabapentin 100 mg capsule 100 mg PO BEDTIME 30 days #30 caps 09/06/21 walker #1 ea 11/08/21 aspirin 81 mg tablet,delayed 81 mg PO DAILY 90 days #90 tabs 02/21/22 release clotrimazole-betamethasone 1 1 appl topical BID PRN itching 7 03/12/22 %-0.05 % topical cream days #45 grams amlodipine 5 mg tablet 5 mg PO DAILY #30 tabs 03/20/22 buspirone 10 mg tablet 10 mg PO BID 90 days #180 tabs 04/28/22 atorvastatin 20 mg tablet 20 mg PO BEDTIME 90 days #90 tabs 05/12/22 omeprazole 20 mg capsule,delayed 20 mg PO DAILY #90 caps 07/30/22 release Allergies Allergy/AdvReac Type Severity Reaction Status Date / Time Penicillins Allergy Intermediate DIZZINESS, Verified 07/30/22 16:24 RASH tramadol [TRAMADOL] Allergy Intermediate NAUSEA & Verified 07/30/22 16:24 VOMITING egg [Egg] AdvReac Intermediate NAUSEA & Verified 07/30/22 16:24 VOMITING morphine AdvReac Intermediate Chest Pain Verified 07/30/22 16:24 FANY DRINK Allergy Intermediate NAUSEA & Uncoded 06/19/22 09:39 VOMITING Review of Systems Review of Systems: Constitutional: No Fever, No Chills ENT/Mouth: No Ear Pain, No Nasal Congestion, No sore throat, No Rhinorrhea Cardiovascular: No Chest Pain, No SOB Respiratory: No Cough, No Sputum Gastrointestinal: No Nausea, No Vomiting, No Abdominal pain Genitourinary: No Dysuria, No Urinary Frequency, No Hematuria Musculoskeletal: No joint pain, No Myalgias, No Joint Swelling Skin: + Skin Lesions, No rash Neuro: No Weakness, No Numbness, No Paresthesias Yes all other systems are reviewed and are negative Constitutional: Constitutional: Reports as per [facility] Past Medical History Attestation statement: The following information was validated with the patient. Medical History Abdominal pain Asthma Back pain Depression with anxiety Diabetes mellitus Essential hypertension Exposure to COVID-19 virus Hiatal hernia Left ankle pain Left knee pain Mild depression Polyarthralgia Pure hypercholesterolemia Right shoulder pain TIA (transient ischemic attack) Vaginal pruritus Vitamin D deficiency Surgical History History of appendectomy History of cholecystectomy History of colonoscopy History of cyst of breast History of exploratory laparotomy History of hemicolectomy History of tooth extraction Family History Family History Father No problems noted. Mother Hypertension Stroke Diabetes Brother Leptospirosis Brother No problems noted. Family/Other FH: mental illness Social History Social History Housing: Apartment Alcohol intake: never Patient Tobacco Use Status: Never used Tobacco e-Cigarette/Vaping Use: Never Used Second Hand Smoke Exposure: No Advance Directives: No service: No Current occupational status: unemployed Sexual orientation: Straight/Heterosexual Gender identity: Female Cognitive needs: Yes Hearing needs: No Vision needs: Yes Physical Exam Vital Signs: Vital Signs: BMI result Body Mass Index 32.2 Const: General: cooperative, healthy appearing and no acute distress Orientation/consciousness: patient oriented x3 Limitations: no limitations HEENT: Head: Yes normal to inspection and Yes atraumatic Ears: hearing grossly normal bilaterally General nose exam: Normal external nose present Face and sinus: Yes normal facial exam Eyes: General: appearance normal, both eyes and all related structures EOM: EOMs intact bilaterally Neck: Neck: Yes normal visual inspection and Yes no meningeal signs Resp: Effort & Inspection: normal respiratory effort and no respiratory distress Cardio: Rate: regular rate Heart sounds: S1 normal heart sound present and S2 normal heart sound present Peripheral pulses: radial pulses present and ulnar radial pulses present Skin: Rashes: no rashes Wounds: no wounds Neuro: General: patient oriented x3, tone normal and no meningeal signs Gait exam (Neuro): Normal gait present Extrem: Other: + healing wound to left 4th digit palmar aspect with sututes intact. Neurovascularly intact. No overlying erythema, fluctuance induration or drainage MDM - Extremity (Nontraumatic) MDM Narrative Medical decision making narrative: 66-year-old female presenting to the ED for suture removal from left 4th digit s/p cutting finger on a piece of metal. physical exam as above. Will remove sutures Medical Records Attestation: I reviewed the patient's medical records. Lab Data Attestation: I reviewed the patient's lab results. 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 has ready to return to the emergency department Aplique bacitracina o Neosporin al ?kemal, mant?ngala limpia Seguimiento con sullivan m?dico seg?n sea necesario Muy parece infectado fany escritor tiene listo para regresar al departamento de emergencias Prescriptions: No Action (DME) AeroEclipse II Nebulizer Misc See Rx Instructions .ROUTE .MEDSUPPLY Qty: 1 0RF Rx Instructions: As directed albuterol sulfate 2.5 mg /3 mL (0.083 %) solution for nebulization 2.5 mg inhalation Q4-6H PRN (Reason: shortness of breath or wheezing) 30 Days Qty: 75 2RF atenolol 50 mg tablet 50 mg PO DAILY 90 Days Qty: 90 2RF gabapentin 100 mg capsule 100 mg PO BEDTIME 30 Days Qty: 30 6RF (DME) colleen Misc See Rx Instructions .ROUTE .MEDSUPPLY Qty: 1 0RF Rx Instructions: As Directed aspirin 81 mg tablet,delayed release (DR/EC) 81 mg PO DAILY 90 Days Qty: 90 3RF clotrimazole-betamethasone 1-0.05 % cream 1 appl topical BID PRN (Reason: itching) 7 Days Qty: 45 0RF amlodipine 5 mg tablet 5 mg PO DAILY Qty: 30 6RF buspirone 10 mg tablet 10 mg PO BID 90 Days Qty: 180 1RF atorvastatin 20 mg tablet 20 mg PO BEDTIME 90 Days Qty: 90 1RF alcohol swabs Pads, Medicated topical citalopram 20 mg tablet PO ibuprofen 800 mg tablet 800 mg PO Q8H PRN (Reason: pain) 7 Days Qty: 21 0RF acetaminophen [Tylenol Arthritis Pain] 650 mg tablet extended release 650 mg PO Q8H PRN (Reason: pain) Qty: 90 4RF omeprazole 20 mg capsule,delayed release(DR/EC) 20 mg PO DAILY Qty: 90 3RF Referrals: Aure Barrett MD [Primary Care Provider] - Interventions: ED Discharge Assessment Last Done: 09/04/22 13:59 Print Language: Nepali
[2022-09-04 13:48] VITALS: BMI 32.2
== END 2022-09-04 14:26 | disposition home or self-care (01) ==
PROVIDERS: Emergency Provider Emergency Medicine Emergency Medical Services; PCP Internal Medicine
DX: Z48.02 Encounter for removal of sutures (principal); Z79.899 Other long term (current) drug therapy
CPT/HCPCS: 99282; 99283

== ENCOUNTER → 2022-09-22 12:52 | Outpatient (BNVA) | payer MEDICARE, MEDICAID, SELFPAY | PROVIDERS: PCP Internal Medicine; Visit Provider Advanced Practice Midwife | DX: D25.9 Leiomyoma of uterus, unspecified (principal); R10.2 Pelvic and perineal pain; Z71.2 Person consulting for explanation of examination or test findings | CPT/HCPCS: 99212 ==

== ENCOUNTER 2022-10-09 16:52 | Emergency (ER) | payer MEDICARE, MEDICAID, SELFPAY ==
[2022-10-09 17:02] VITALS: BP 156/84; PULSE 98; RESP 20; TEMP 37; O2SAT 100; BMI 32.9
--- NOTE | 2022-10-09 17:04 | ED.GENADULT ---
HPI - General Adult General Chief complaint: Upper Respiratory Symptoms <MARCUS Guerra - Last Filed: 10/13/22 12:50> Stated complaint: cough,covid+ <MARCUS Guerra - Last Filed: 10/13/22 12:50> Time Seen by Provider: 10/09/22 18:36 <MARCUS Guerra - Last Filed: 10/13/22 12:50> Source: patient <MARCUS Brown Last Filed: 10/09/22 19:02> Mode of arrival: ambulatory <MARCUS Brown - Last Filed: 10/09/22 19:02> Limitations: language barrier (Mongolian-speaking) <MARCUS Brown Last Filed: 10/09/22 19:02> History of Present Illness HPI narrative: 66-year-old female with a past medical history of asthma, depression with anxiety, diabetes, hypertension, hiatal hernia, hyperlipidemia, TIA who is presenting to the ED with her with complaints of generalized fatigue /malaise, nasal congestion / rhinorrhea, scratchy throat, hoarseness an intermittent productive cough for the past 2 days worse today. Reports pain with coughing otherwise no Chest pain without coughing. Reports that her is in another room he tested positive for COVID approximately 2 weeks ago and she has been caring for him. she reports she took at home COVID test today and came out positive. She denies any measured fevers, dizziness, neck pain /stiffness, trouble swallowing or breathing, dyspnea on exertion, orthopnea, chest pain, palpitations, paresthesias, nausea /vomiting / diarrhea constipation, black or bloody stools, lower extremity edema or calf tenderness, recent travel or any other sick contacts, rashes or any other symptoms complaints or concerns at this time. <MARCUS Brown - Last Filed: 10/09/22 19:02> MD complaint: URI complaints and exposure to COVID positive COVID test at home <MARCUS Brown Last Filed: 10/09/22 19:02> Onset (ago): day(s) (2) <MARCUS Brown Last Filed: 10/09/22 19:02> Related Data Home medications: Home Medications Medication Instructions Recorded Confirmed alcohol swabs pad topical 09/11/20 09/30/22 citalopram 20 mg tablet mg PO 09/11/20 09/30/22 Previous Rx's Medication Instructions Recorded acetaminophen 650 mg 650 mg PO Q8H PRN pain #90 tabs 10/23/20 tablet,extended release (Tylenol Arthritis Pain) ibuprofen 800 mg tablet 800 mg PO Q8H PRN pain 7 days #21 03/05/21 tabs nebulizers (AeroEclipse II #1 ea 04/01/21 Nebulizer) albuterol sulfate 2.5 mg/3 mL 2.5 mg (3 mL) inhalation Q4-6H PRN 04/10/21 (0.083 %) solution for nebulization shortness of breath or wheezing 30 days #75 mL atenolol 50 mg tablet 50 mg PO DAILY 90 days #90 tabs 05/31/21 gabapentin 100 mg capsule 100 mg PO BEDTIME 30 days #30 caps 09/06/21 walker #1 ea 11/08/21 clotrimazole-betamethasone 1 1 appl topical BID PRN itching 7 03/12/22 %-0.05 % topical cream days #45 grams omeprazole 20 mg capsule,delayed 20 mg PO DAILY #90 caps 07/30/22 release amlodipine 5 mg tablet 5 mg PO DAILY #30 tabs 09/09/22 atorvastatin 20 mg tablet 20 mg PO BEDTIME 90 days #90 tabs 09/09/22 buspirone 10 mg tablet 10 mg PO BID 90 days #180 tabs 09/09/22 aspirin 81 mg tablet,delayed 81 mg PO DAILY 90 days #90 tabs 09/24/22 release codeine 10 mg-guaifenesin 100 mg/5 5 ml PO Q6H PRN cold symptoms #120 10/09/22 mL oral liquid (Guaifenesin AC) mL <MARCUS Guerra - Last Filed: 10/13/22 12:50> Allergies/adverse reactions: Allergies Allergy/AdvReac Type Severity Reaction Status Date / Time Penicillins Allergy Intermediate DIZZINESS, Verified 09/30/22 10:10 RASH tramadol [TRAMADOL] Allergy Intermediate NAUSEA & Verified 09/30/22 10:10 VOMITING egg [Egg] AdvReac Intermediate NAUSEA & Verified 09/30/22 10:10 VOMITING morphine AdvReac Intermediate Chest Pain Verified 09/30/22 10:10 FANY DRINK Allergy Intermediate NAUSEA & Uncoded 09/30/22 10:10 VOMITING <MARCUS Guerra - Last Filed: 10/13/22 12:50> Review of Systems Review of Systems: Constitutional : No Weight loss, No Fever, + Chills, No Night Sweats, + Fatigue, + Malaise ENT/Mouth : No Hearing loss, No Ear Pain, + Nasal Congestion, No Sinus Pain, + Hoarseness, + sore throat, + Rhinorrhea, No Swallowing Difficulty Eyes: No Eye Pain, No Swelling, No Redness, No Foreign Body, No Discharge, No Vision Changes Cardiovascular : No Chest Pain, No SOB, No Dyspnea on Exertion, No Orthopnea, No Edema, No Palpitations Respiratory : + Cough, + Sputum, No Wheezing, No Smoke Exposure, No Dyspnea Gastrointestinal : No Nausea, No Vomiting, No Diarrhea, No Constipation, No abdominal Pain, No Hematochezia, No Melena Genitourinary : no irregular bleeding, No Dysuria, No Urinary Frequency, No Hematuria, No Urinary Incontinence, No Urgency, No Flank Pain, No Urinary Flow Changes, No Hesitancy Musculoskeletal : No joint pain, + Myalgias, No Joint Swelling Skin : No Skin Lesions, No rash Neuro : No Weakness, No Numbness, No Paresthesias, No Loss of Consciousness, No Dizziness, No Headache Psych : No Anxiety/Panic, No Depression, No SI/HI/AH/VH, No Social Issues, Heme/Lymph: No Bruising, No Bleeding,No Lymphadenopathy Endocrine : No Polyuria, No Polydipsia, No Temperature Intolerance <MARCUS Brown - Last Filed: 10/09/22 19:02> Yes all other systems are reviewed and are negative <MARCUS Brown - Last Filed: 10/09/22 19:02> [facility] Past Medical History Attestation statement: The following information was validated with the patient. <MARCUS Brown - Last Filed: 10/09/22 19:02> Source: old records reviewed and nursing notes reviewed <MARCUS Brown - Last Filed: 10/09/22 19:02> Medical History: Medical History Abdominal pain Asthma Back pain Depression with anxiety Diabetes mellitus Essential hypertension Exposure to COVID-19 virus Hiatal hernia Left ankle pain Left knee pain Mild depression Polyarthralgia Pure hypercholesterolemia Right shoulder pain TIA (transient ischemic attack) Vaginal pruritus Vitamin D deficiency <MARCUS Guerra - Last Filed: 10/13/22 12:50> Surgical History: Surgical History History of appendectomy History of cholecystectomy History of colonoscopy History of cyst of breast History of exploratory laparotomy History of hemicolectomy History of tooth extraction <MARCUS Guerra - Last Filed: 10/13/22 12:50> Family History Family History: Family History Father No problems noted. Mother Hypertension Stroke Diabetes Brother Leptospirosis Brother No problems noted. Family/Other FH: mental illness <MARCUS Guerra - Last Filed: 10/13/22 12:50> Social History Social History: Social History Housing: Apartment Alcohol intake: never Patient Tobacco Use Status: Never used Tobacco e-Cigarette/Vaping Use: Never Used Second Hand Smoke Exposure: No Advance Directives: No Advance Directives Information Provided: Yes service: No Current occupational status: unemployed Sexual orientation: Straight/Heterosexual Gender identity: Female Cognitive needs: Yes Hearing needs: No Vision needs: Yes <MARCUS Guerra - Last Filed: 10/13/22 12:50> Physical Exam ED Vital Signs: Vital Signs - 24 hr 10/09/22 17:02 Temperature 98.6 F Pulse Rate 98 Respiratory Rate 20 Blood Pressure 156/84 H Pulse Oximetry 100 Oxygen Delivery Method Room Air BMI result Body Mass Index 32.9 <MARCUS Guerra - Last Filed: 10/13/22 12:50> Vital Signs - 24 hr 10/09/22 17:02 Temperature 98.6 F Pulse Rate 98 Respiratory Rate 20 Blood Pressure 156/84 H Pulse Oximetry 100 Oxygen Delivery Method Room Air BMI result Body Mass Index 32.9 vital signs have been reviewed as normal and appeared to be correct. Blood pressure 156/84 Heart rate normal. Respiration rate normal. Temperature normal. Oxygen saturation normal. <MARCUS Brown - Last Filed: 10/09/22 19:02> Appearance: Alert. Oriented X3. No acute distress. Head: Normal external exam. Normocephalic. Atraumatic. Eyes: PERRLA. EOMI. Conjunctiva and sclera normal. Eyelids normal. ENT: EAC normal. TM's Normal. Pharynx normal. Uvula midline. Moist mucous membranes. No lesions/ulcerations or masses noted on the tongue. Normal voice. No trismus noted. No drooling noted. No muffled voice noted. Neck: Normal inspection. Neck supple. FROM. No adenopathy. Thyroid Normal. No tracheal deviation noted. No crepitus is noted. No meningeal signs. No neck mass noted. No signs of trauma noted. CVS: Normal heart rate and rhythm. Heart sound normal. Pulses normal throughout. No murmurs/rales/gallops. Respiratory: No respiratory distress. Painless inspiration. Breath sounds normal. No wheezes/rales/rhonchi noted. Chest nontender. No crepitus is noted. No signs of trauma noted. No accessory muscle usage noted or decreased air movement noted. No signs of trauma. Abdomen: Soft and nontender. Bowel sounds normal in all 4 quadrants. No distention noted. No organomegaly noted. No visible injury noted. Back: No CVA tenderness. Full range of motion noted. Nontender. No signs of trauma. Patient neuro intact bilaterally and distally on all 4 extremities. Patient's reflexes intact bilaterally and distally on all 4 extremities. No rashes/lesion/induration/fluctuance or signs of infection noted. Skin: Skin warm and dry. Normal skin color. Normal skin turgor. No rashes/lesions/lacerations noted. Extremities: No lower extremity edema. No calf tenderness is noted. Extremities exhibit normal range of motion and nontender. Neuro: Oriented X 3. No motor deficit. No sensory deficit. Reflexes normal. Normal steady gait. No focal neuro deficits noted. CN's II-XII intact bilaterally? Vascular: + radial pulses. Normal cap refill. No cyanosis noted to upper extremity nails <MARCUS Brown - Last Filed: 10/09/22 19:02> Course Course Course Narrative: RME: patient positive for Covid positive for cough, bodyaches, and runny nose. Patient states she took a home covid test and it became positive. Chest xray ordered <MARCUS Guerra - Last Filed: 10/13/22 12:50> Reevaluation(s) Reevaluation #1: 66-year-old female with a past medical history of asthma, depression with anxiety, diabetes, hypertension, hiatal hernia, hyperlipidemia, TIA who is presenting to the ED with her with complaints of generalized fatigue /malaise, nasal congestion / rhinorrhea, scratchy throat, hoarseness an intermittent productive cough for the past 2 days worse today. Reports pain with coughing otherwise no Chest pain without coughing. Reports that her is in another room he tested positive for COVID approximately 2 weeks ago and she has been caring for him. She reports she took at home COVID test today and came out positive. Patient had a negative chest x-ray that was ordered in triage. I will order COVID/RSV /flu swab. Will order labs. Patient will be a candidate for monoclonal antibody therapy at [facility] although will obtain labs at this time. Sign out to ALEX Baig <MARCUS Brown - Last Filed: 10/09/22 19:02> Time: 18:54 <MARCUS Brown - Last Filed: 10/09/22 19:02> Reevaluation #2: Patient positive for COVID. Labs are normal. Referral to [facility] monoclonal antibodies were done. Patient informed that patient will call her for monoclonal antibodies. <MARCUS Guerra - Last Filed: 10/13/22 12:50> Time: 20:11 <MARCUS Guerra - Last Filed: 10/13/22 12:50> Medical Decision Making Lab Data MDM Lab Attestation statement: I reviewed the patient's lab results. <MARCUS Brown - Last Filed: 10/09/22 19:02> Result Diagrams: : 10/09/22 19:07 10/09/22 19:07 <MARCUS Guerra - Last Filed: 10/13/22 12:50> Labs: Lab Results 10/09/22 10/09/22 10/09/22 Range/Units 18:55 19:07 19:07 WBC 7.9 (4.8-10.8) X10*3/uL RBC 4.37 (4.20-5.50) X10*6/uL Hgb 12.7 (12.0-16.0) g/dl Hct 38.8 (37.0-47.0) % MCV 88.8 (80.0-98.0) fL MCH 29.1 (27.0-33.0) pg MCHC 32.7 (31.0-35.0) g/dl RDW 12.7 (11.0-16.0) % Plt Count 257 (160-400) X10*3/uL MPV 10.7 (9.4-12.3) fL Immature Gran % (Auto) 0.3 (0.0-0.4) % Neut % (Auto) 68.4 (45-73) % Lymph % (Auto) 18.8 L (20-40) % [place] % (Auto) 9.8 (2-11) % Eos % (Auto) 1.8 (0-4) % Baso % (Auto) 0.9 (0-2) % Lymph # (Auto) 1.5 (1.2-4.9) X10*3/uL [place] # (Auto) 0.8 (0.1-1.2) X10*3/uL Eos # (Auto) 0.1 (0.0-0.4) X10*3/uL Baso # (Auto) 0.1 (0.0-0.2) X10*3/uL Abs Immat Gran (auto) 0.02 (0.00-0.03) X10*3/uL Absolute Neuts (auto) 5.4 (2.0-8.3) x10*3/uL Absolute Nucleated RBC 0.000 (0.0-0.012) X10*3/uL Nucleated RBC % (auto) 0.0 (0.0-0.2) /100WBC Sodium 142 (135-145) mmol/L Potassium 4.1 (3.3-5.1) mmol/L Chloride 105 (96-108) mmol/L Carbon Dioxide 28 (22-29) mmol/L Anion Gap 13 (12-20) BUN 11 (9-16) mg/dL Creatinine 0.92 (0.5-1.4) mg/dL Estim Creat Clear Calc 57.9 Estimated GFR > 60 Random Glucose 105 (60-115) mg/dL Calcium 9.0 (8.4-10.2) mg/dL Magnesium 1.9 (1.6-2.6) mg/dL Total Bilirubin 0.5 (0.0-1.0) mg/dL AST 32 H (5-31) U/L ALT 31 (0-31) U/L Alkaline Phosphatase 138 H (39-117) U/L Total Protein 7.0 (6.5-8.0) g/dL Albumin 4.0 (3.5-5.0) g/dL Influenza Type A (PCR) NEGATIVE (Negative) Influenza Type B (PCR) NEGATIVE (Negative) RSV RNA Qual (PCR) NEGATIVE (Negative) SARS-CoV-2 RNA (RT-PCR) POSITIVE A (Negative) <MARCUS Guerra - Last Filed: 10/13/22 12:50> Lab Results 10/09/22 10/09/22 10/09/22 Range/Units 18:55 19:07 19:07 WBC 7.9 (4.8-10.8) X10*3/uL RBC 4.37 (4.20-5.50) X10*6/uL Hgb 12.7 (12.0-16.0) g/dl Hct 38.8 (37.0-47.0) % MCV 88.8 (80.0-98.0) fL MCH 29.1 (27.0-33.0) pg MCHC 32.7 (31.0-35.0) g/dl RDW 12.7 (11.0-16.0) % Plt Count 257 (160-400) X10*3/uL MPV 10.7 (9.4-12.3) fL Immature Gran % (Auto) 0.3 (0.0-0.4) % Neut % (Auto) 68.4 (45-73) % Lymph % (Auto) 18.8 L (20-40) % [place] % (Auto) 9.8 (2-11) % Eos % (Auto) 1.8 (0-4) % Baso % (Auto) 0.9 (0-2) % Lymph # (Auto) 1.5 (1.2-4.9) X10*3/uL [place] # (Auto) 0.8 (0.1-1.2) X10*3/uL Eos # (Auto) 0.1 (0.0-0.4) X10*3/uL Baso # (Auto) 0.1 (0.0-0.2) X10*3/uL Abs Immat Gran (auto) 0.02 (0.00-0.03) X10*3/uL Absolute Neuts (auto) 5.4 (2.0-8.3) x10*3/uL Absolute Nucleated RBC 0.000 (0.0-0.012) X10*3/uL Nucleated RBC % (auto) 0.0 (0.0-0.2) /100WBC Sodium 142 (135-145) mmol/L Potassium 4.1 (3.3-5.1) mmol/L Chloride 105 (96-108) mmol/L Carbon Dioxide 28 (22-29) mmol/L Anion Gap 13 (12-20) BUN 11 (9-16) mg/dL Creatinine 0.92 (0.5-1.4) mg/dL Estim Creat Clear Calc 57.9 Estimated GFR > 60 Random Glucose 105 (60-115) mg/dL Calcium 9.0 (8.4-10.2) mg/dL Magnesium 1.9 (1.6-2.6) mg/dL Total Bilirubin 0.5 (0.0-1.0) mg/dL AST 32 H (5-31) U/L ALT 31 (0-31) U/L Alkaline Phosphatase 138 H (39-117) U/L Total Protein 7.0 (6.5-8.0) g/dL Albumin 4.0 (3.5-5.0) g/dL Influenza Type A (PCR) NEGATIVE (Negative) Influenza Type B (PCR) NEGATIVE (Negative) RSV RNA Qual (PCR) NEGATIVE (Negative) SARS-CoV-2 RNA (RT-PCR) POSITIVE A (Negative) <MARCUS Brown - Last Filed: 10/09/22 19:02> Independent Interpretation I performed an independent interpretation of an: Plain X-Ray <MARCUS Brown - Last Filed: 10/09/22 19:02> Interpretation: chest x-ray revealed FINDINGS: No significant abnormality is noted involving the heart, lungs, mediastinum, bony thorax or soft tissues. XR/XR chest 1V IMPRESSION: Unremarkable examination. <MARCUS Brown - Last Filed: 10/09/22 19:02> Radiology Impression Discussion of test interpretation with radiology: I have reviewed the radiologist's reading. <MARCUS Brown - Last Filed: 10/09/22 19:02> External Record Review External record reviewed: Inpatient record, Office record, Outpatient record, Prior outpatient labs, Prior outpatient radiology, Primary care record and Outside ED record <MARCUS Brown - Last Filed: 10/09/22 19:02> Discharge Plan Discharge Clinical Impression: COVID-19 <MARCUS Guerra - Last Filed: 10/13/22 12:50> Patient Disposition: Home, Self-Care <MARCUS Guerra Last Filed: 10/13/22 12:50> Instructions: COVID-19 (Coronavirus Disease 2019) (ED) <MARCUS Guerra - Last Filed: 10/13/22 12:50> Additional Instructions: Eres positivo por Covid-19. Se envi? whitley remisi?n a [facility] y lo llamar?n para recibir tratamiento si califica. Regrese al servicio de urgencias de inmediato si tiene dolor en el pecho, dificultad para respirar, debilidad, mareos, hinchaz?n de las piernas, dolor en la pantorrilla o cualquier otro s?ntoma preocupante. Por favor, radha un seguimiento con el PCP. <MARCUS Guerra - Last Filed: 10/13/22 12:50> Prescriptions: New codeine-guaifenesin [Guaifenesin AC] 10-100 mg/5 mL liquid 5 ml PO Q6H PRN (Reason: cold symptoms) Qty: 120 0RF No Action (DME) AeroEclipse II Nebulizer Misc See Rx Instructions .ROUTE .MEDSUPPLY Qty: 1 0RF Rx Instructions: As directed albuterol sulfate 2.5 mg /3 mL (0.083 %) solution for nebulization 2.5 mg inhalation Q4-6H PRN (Reason: shortness of breath or wheezing) 30 Days Qty: 75 2RF atenolol 50 mg tablet 50 mg PO DAILY 90 Days Qty: 90 2RF gabapentin 100 mg capsule 100 mg PO BEDTIME 30 Days Qty: 30 6RF (DME) [facility] [place] See Rx Instructions .ROUTE .MEDSUPPLY Qty: 1 0RF Rx Instructions: As Directed clotrimazole-betamethasone 1-0.05 % cream 1 appl topical BID PRN (Reason: itching) 7 Days Qty: 45 0RF amlodipine 5 mg tablet 5 mg PO DAILY Qty: 30 6RF buspirone 10 mg tablet 10 mg PO BID 90 Days Qty: 180 1RF atorvastatin 20 mg tablet 20 mg PO BEDTIME 90 Days Qty: 90 1RF aspirin 81 mg tablet,delayed release (DR/EC) 81 mg PO DAILY 90 Days Qty: 90 3RF alcohol swabs Pads, Medicated topical citalopram 20 mg tablet PO ibuprofen 800 mg tablet 800 mg PO Q8H PRN (Reason: pain) 7 Days Qty: 21 0RF acetaminophen [Tylenol Arthritis Pain] 650 mg tablet extended release 650 mg PO Q8H PRN (Reason: pain) Qty: 90 4RF omeprazole 20 mg capsule,delayed release(DR/EC) 20 mg PO DAILY Qty: 90 3RF <MARCUS Guerra - Last Filed: 10/13/22 12:50> Referrals: Aure Barrett MD [Primary Care Provider] - 5 days <MARCUS Guerra - Last Filed: 10/13/22 12:50> Interventions: ED Discharge Assessment Last Done: 10/09/22 20:40 <MARCUS Guerra - Last Filed: 10/13/22 12:50> Discharge Date/Time: 10/09/22 20:41 <MARCUS Guerra - Last Filed: 10/13/22 12:50> Print Language: Mongolian <MARCUS Guerra - Last Filed: 10/13/22 12:50>
[2022-10-09 19:13] LABS: Basophils Absolute Auto 0.1 X10*3/uL (0.0-0.2); Basophils Percent Auto 0.9 % (0-2); Eosinophils Absolute Auto 0.1 X10*3/uL (0.0-0.4); Eosinophils Percent Auto 1.8 % (0-4); Hematocrit 38.8 % (37.0-47.0); Hemoglobin 12.7 g/dl (12.0-16.0); Imm Gran Abs Auto 0.02 X10*3/uL (0.00-0.03); Imm Gran Pct Auto 0.3 % (0.0-0.4); Lymphocytes Absolute Auto 1.5 X10*3/uL (1.2-4.9); Lymphocytes Percent Auto 18.8 % (20-40); MANUAL DIFF FLAG NO; Mean Corpuscular HGB Conc 32.7 g/dl (31.0-35.0); Mean Corpuscular Hemoglobin 29.1 pg (27.0-33.0); Mean Corpuscular Volume 88.8 fL (80.0-98.0); Mean Platelet Volume 10.7 fL (9.4-12.3); Monocytes Absolute Auto 0.8 X10*3/uL (0.1-1.2); Monocytes Percent Auto 9.8 % (2-11); Neutrophils Absolute Auto 5.4 x10*3/uL (2.0-8.3); Neutrophils Percent Auto 68.4 % (45-73); Platelet Count 257 X10*3/uL (160-400); Red Blood Count 4.37 X10*6/uL (4.20-5.50); Red Cell Distribution Width 12.7 % (11.0-16.0); White Blood Count 7.9 X10*3/uL (4.8-10.8)
[2022-10-09 19:27] LABS: Alanine Aminotransferase 31 U/L (0-31); Alkaline Phosphatase 138 U/L (39-117); Anion Gap 13 (12-20); Aspartate Amino Transferase 32 U/L (5-31); Bilirubin Total 0.5 mg/dL (0.0-1.0); Blood Urea Nitrogen 11 mg/dL (9-16); Carbon Dioxide 28 mmol/L (22-29); Chloride 105 mmol/L (96-108); Creatinine Clr Calc Pharmacy 57.9; Estimated Glomerular Filt Rate > 60; Glucose Random 105 mg/dL (60-115); Magnesium 1.9 mg/dL (1.6-2.6); Potassium 4.1 mmol/L (3.3-5.1); Sodium 142 mmol/L (135-145)
[2022-10-09 19:40] LABS: Influenza A PCR NEGATIVE (Negative); Influenza B PCR NEGATIVE (Negative); Resp Syncy Virus RNA Qual PCR NEGATIVE (Negative); SARS COV2 PCR INHOUSE POSITIVE (Negative)
== END 2022-10-09 20:41 | disposition home or self-care (01) ==
PROVIDERS: Physician Assistant Medical; Emergency Provider Emergency Medicine; PCP Internal Medicine
DX: U07.1 COVID-19 (principal); E11.9 Type 2 diabetes mellitus without complications; I10 Essential (primary) hypertension; E78.5 Hyperlipidemia, unspecified; J45.909 Unspecified asthma, uncomplicated; Z79.02 Long term (current) use of antithrombotics/antiplatelets; Z79.82 Long term (current) use of aspirin; Z79.899 Other long term (current) drug therapy
CPT/HCPCS: 0241U; 36415; 71045; 80053; 83735; 85025; 99282; 99283

== ENCOUNTER 2022-10-21 13:18 | Outpatient (REF) | payer MEDICARE, MEDICAID, SELFPAY ==
--- NOTE | ~2022-10-21 | MM_ITS ---
EXAMINATION: BONE DENSITOMETRY CLINICAL INDICATION: Menopause. COMPARISON: None (current study represents initial baseline exam). TECHNIQUE: Using a [employer] DXA System (software version: 13.1) manufactured by [employer], dual-energy x-ray absorptiometry was performed of the lumbar spine and left hip. The images are of good technical quality. Summary results are attached. FINDINGS: AP SPINE L1-L4: BMD 0.978 g/cm2, Z-score -0.6, T-score -1.7, osteopenia. LEFT FEMUR, NECK: BMD 0.781 g/cm2, Z-score -0.6, T-score -1.9, osteopenia. LEFT FEMUR, TOTAL: BMD 0.966 g/cm2, Z-score 0.7, T-score -0.3, normal. IDENTIFIED RISK FACTORS: Early menopause, family history (parent hip fracture), height loss, history of fracture (adult), recurrent falls, rheumatoid arthritis, secondary osteoporosis. HISTORY OF FRACTURE: Shoulder MEDICATIONS: None listed. MM/XR DEXA axial skeleton IMPRESSION: 1. DIAGNOSIS: Osteopenia based on the lowest T-score value of -1.9 in the femoral neck applying World Health Organization criteria. 2. 10-YEAR FRACTURE RISK PREDICTION, FRAX: Major osteoporotic fracture (clinical spine, forearm, hip or shoulder) 20.5%. Hip fracture 3.9%. 3. Treatment Recommendations: NOF guidelines recommend consideration for treatment in postmenopausal women and men age 50 and older presenting with the following: -A hip or vertebral (clinical or morphometric) fracture. -T-score less than or equal to -2.5 at the femoral neck or spine after appropriate evaluation to exclude secondary causes. -Low bone mass at the hip or spine and a 10-year fracture probability by FRAX of greater than or equal to 3% for hip fracture or greater than or equal to 20% for major osteoporotic fracture based on the [place] adapted WHO algorithm. 4. Other Recommendations: All treatment decisions require clinical judgment and consideration of individual patient factors, including patient preferences, comorbidities, previous drug use, risk factors not captured in the FRAX model (e.g. frailty, falls, vitamin D deficiency, increased bone turnover, interval significant decline in bone density) and possible under or overestimation of fracture risk by FRAX. Additional medical evaluation for secondary cause of low bone mineral density may be appropriate. FUTURE SCAN RECOMMENDATION: People with diagnosed cases of osteoporosis or at high risk for fracture should have regular bone mineral density tests. For patients eligible for Medicare, routine testing is allowed once every 2 years. The testing frequency can be increased to one year for patients who have rapidly progressing disease, those who are receiving or discontinuing medical therapy to restore bone mass, or have additional risk factors.
== END 2022-10-21 13:19 | disposition home or self-care (01) ==
LOC: HO.MAMMO 13:18
PROVIDERS: Visit Provider Nurse Practitioner Family
DX: Z13.820 Encounter for screening for osteoporosis (principal); Z78.0 Asymptomatic menopausal state
CPT/HCPCS: 77080

== ENCOUNTER 2022-11-02 21:46 | Emergency (ER) | payer MEDICARE, MEDICAID, SELFPAY ==
--- NOTE | ~2022-11-02 | CT_ITS ---
EXAMINATION: CT ABDOMEN AND PELVIS WITHOUT CONTRAST CLINICAL INFORMATION: Right lower quadrant/flank pain COMPARISON: CT abdomen pelvis 03/02/2021 TECHNIQUE: Multidetector volumetric imaging was performed from the superior aspect of the liver through the pubic symphysis. Sagittal and coronal reformatted images were obtained on the technologist's workstation. This CT examination was performed using dose optimization techniques as appropriate, variously including the following: *Automated exposure control *Adjustment of mA and/or kV according to patient size (this includes techniques or standardized protocols for targeted exams where dose is matched to indication/reason for exam; i.e. extremities or head) *Use of iterative reconstruction technique DLP: 678 mGy-cm FINDINGS: LUNG BASES: Minimal bibasilar atelectasis. Mild elevation of the right hemidiaphragm. LIVER, GALLBLADDER, AND BILIARY TREE: Normal hepatic size. Diffuse hepatic hypoattenuation/steatosis. No gross liver lesion. No biliary ductal dilation. Status post cholecystectomy. PANCREAS: Unremarkable. SPLEEN: Unremarkable. ADRENAL GLANDS: Unremarkable. KIDNEYS AND URETERS: The kidneys are normal in size, shape, and attenuation. No hydronephrosis, hydroureter, or calculi seen. No perinephric stranding. BLADDER: Unremarkable. GASTROINTESTINAL TRACT: Small hiatal hernia. Colonic diverticulosis. No evidence of acute diverticulitis. No dilated bowel loops or bowel wall thickening. Suture material at the base of the cecum suggesting prior appendectomy. Correlate with surgical history. No inflammatory change at the cecal base. No free air or ascites. ABDOMINAL WALL: Small fat-containing umbilical hernia. LYMPH NODES: No lymphadenopathy. VASCULAR: Normal caliber abdominal aorta. Mild vascular calcifications. PELVIC VISCERA: Somewhat nodular appearance of the uterine fundus consistent with the presence of known fibroid seen on prior ultrasound 06/13/2022. Gynecologic structures otherwise unremarkable. OSSEOUS STRUCTURES: No acute fracture or suspicious osseous lesion. Mild multilevel lumbar lordosis of the visualized thoracic and lumbar spine. CT/CT abdomen pelvis wo IV con IMPRESSION: 1. No acute intra-abdominal process. 2. No evidence of nephrolithiasis or hydronephrosis. 3. Colonic diverticulosis. No evidence of acute diverticulitis. 4. Hepatic steatosis.
[2022-11-02 21:52] VITALS: BP 155/71; PULSE 74; RESP 20; TEMP 36.1; O2SAT 100; BMI 34.0
[2022-11-02 22:06] VITALS: BP 179/80; PULSE 72; RESP 14; TEMP 36.5; O2SAT 100
--- NOTE | 2022-11-02 22:26 | ED.FEMALEGU ---
HPI - Female Genitourinary General Chief complaint: Urogenital-Female Stated complaint: abdominal/vaginal pain Time Seen by Provider: 11/02/22 22:12 Source: patient Mode of arrival: ambulatory Limitations: no limitations History of Present Illness HPI Narrative: Patient comes emergency room complaining of right lower quadrant pain and right flank pain. Patient states that when she urinated, she noticed a small amount of blood in the urine. Patient states she has significant dysuria. Patient states that the pain started approximately 2 1-1/2 hours ago. Patient denies any fever or chills, no nausea vomiting or diarrhea. Related Data Home Medications Medication Instructions Recorded Confirmed alcohol swabs pad topical 09/11/20 10/22/22 citalopram 20 mg tablet mg PO 09/11/20 10/22/22 Previous Rx's Medication Instructions Recorded acetaminophen 650 mg 650 mg PO Q8H PRN pain #90 tabs 10/23/20 tablet,extended release (Tylenol Arthritis Pain) ibuprofen 800 mg tablet 800 mg PO Q8H PRN pain 7 days #21 03/05/21 tabs nebulizers (AeroEclipse II #1 ea 04/01/21 Nebulizer) albuterol sulfate 2.5 mg/3 mL 2.5 mg (3 mL) inhalation Q4-6H PRN 04/10/21 (0.083 %) solution for nebulization shortness of breath or wheezing 30 days #75 mL atenolol 50 mg tablet 50 mg PO DAILY 90 days #90 tabs 05/31/21 gabapentin 100 mg capsule 100 mg PO BEDTIME 30 days #30 caps 09/06/21 walker #1 ea 11/08/21 clotrimazole-betamethasone 1 1 appl topical BID PRN itching 7 03/12/22 %-0.05 % topical cream days #45 grams omeprazole 20 mg capsule,delayed 20 mg PO DAILY #90 caps 07/30/22 release amlodipine 5 mg tablet 5 mg PO DAILY #30 tabs 09/09/22 atorvastatin 20 mg tablet 20 mg PO BEDTIME 90 days #90 tabs 09/09/22 buspirone 10 mg tablet 10 mg PO BID 90 days #180 tabs 09/09/22 aspirin 81 mg tablet,delayed 81 mg PO DAILY 90 days #90 tabs 09/24/22 release codeine 10 mg-guaifenesin 100 mg/5 5 ml PO Q6H PRN cold symptoms #120 10/09/22 mL oral liquid (Guaifenesin AC) mL calcium carbonate 500 mg-vitamin 1 tab PO DAILY 90 days #90 tabs 10/22/22 D3 10 mcg (400 unit) tablet (Oyster Shell Calcium-Vitamin D3) levofloxacin 500 mg tablet 500 mg PO DAILY #9 tabs 11/02/22 phenazopyridine 100 mg tablet 100 mg PO TID PRN pain 6 doses #6 11/02/22 tabs Allergies Allergy/AdvReac Type Severity Reaction Status Date / Time Penicillins Allergy Intermediate DIZZINESS, Verified 11/02/22 21:57 RASH tramadol [TRAMADOL] Allergy Intermediate NAUSEA & Verified 11/02/22 21:57 VOMITING egg [Egg] AdvReac Intermediate NAUSEA & Verified 11/02/22 21:57 VOMITING morphine AdvReac Intermediate Chest Pain Verified 11/02/22 21:57 FANY DRINK Allergy Intermediate NAUSEA & Uncoded 11/02/22 21:57 VOMITING Review of Systems Review of Systems: Constitutional : No Weight loss, No Fever, No Chills, No Night Sweats, No Fatigue, No Malaise ENT/Mouth : No Hearing loss, No Ear Pain, No Nasal Congestion, No Sinus Pain, No Hoarseness, No sore throat, No Rhinorrhea, No Swallowing Difficulty Eyes: No Eye Pain, No Swelling, No Redness, No Foreign Body, No Discharge, No Vision Changes Cardiovascular : No Chest Pain, No SOB, No Dyspnea on Exertion, No Orthopnea, No Edema, No Palpitations Respiratory : No Cough, No Sputum, No Wheezing, No Smoke Exposure, No Dyspnea Gastrointestinal : No Nausea, No Vomiting, No Diarrhea, hypertensive patient, patient complaining of right lower quadrant pain and right flank pain Genitourinary : no irregular bleeding, complaining of dysuria and hematuria, Dysuria, No Urinary Frequency, No Urinary Incontinence, No Urgency, No Flank Pain, No Urinary Flow Changes, No Hesitancy Musculoskeletal : No joint pain, No Myalgias, No Joint Swelling Skin : No Skin Lesions, No rash Neuro : No Weakness, No Numbness, No Paresthesias, No Loss of Consciousness, No Dizziness, No Headache Psych : No Anxiety/Panic, No Depression, No SI/HI/AH/VH, No Social Issues, Heme/Lymph: No Bruising, No Bleeding,No Lymphadenopathy Endocrine : No Polyuria, No Polydipsia, No Temperature Intolerance [facility] Past Medical History Medical History Abdominal pain Asthma Back pain Depression with anxiety Diabetes mellitus Essential hypertension Exposure to COVID-19 virus Hiatal hernia Left ankle pain Left knee pain Mild depression Polyarthralgia Pure hypercholesterolemia Right shoulder pain TIA (transient ischemic attack) Vaginal pruritus Vitamin D deficiency Surgical History History of appendectomy History of cholecystectomy History of colonoscopy History of cyst of breast History of exploratory laparotomy History of hemicolectomy History of tooth extraction Family History Family History Father No problems noted. Mother Hypertension Stroke Diabetes Brother Leptospirosis Brother No problems noted. Family/Other FH: mental illness Social History Social History Housing: Apartment Alcohol intake: never Patient Tobacco Use Status: Never used Tobacco e-Cigarette/Vaping Use: Never Used Second Hand Smoke Exposure: No Advance Directives: No Advance Directives Information Provided: Yes service: No Current occupational status: unemployed Sexual orientation: Straight/Heterosexual Gender identity: Female Cognitive needs: Yes Hearing needs: No Vision needs: Yes Physical Exam Vital Signs: Vital Signs: Last Vital Signs Temp 97.7 F 11/02/22 22:06 Pulse 72 11/02/22 22:06 Resp 14 11/02/22 22:06 BP 179/80 H 11/02/22 22:06 Pulse Ox 100 11/02/22 22:06 O2 Del Method 11/02/22 22:06 BMI result Body Mass Index 34.0 Const: Other: Appearance: Alert. Oriented X3. No acute distress. Eyes: Pupils equal, round and reactive to light. ENT: Pharynx normal. Neck: Normal inspection. Neck supple. No lymph nodes noted. No crepitus CVS: Normal heart rate and rhythm. Pulses normal. Normal S1 and S2 Respiratory: No respiratory distress. Breath sounds normal. No Wheezing. No rales Abdomen: Soft mild to moderate right lower quadrant pain and right flank pain. Skin: Skin warm and dry. Normal skin color. Normal skin turgor. Extremities: No lower extremity edema. No Lacerations. No Rash Neuro: Oriented X 3. No motor deficit. No sensory deficit. Moving all extremities. No slurred speech. CN 2 through 12 grossly intact Psych: calm, cooperative, normal affect Course Course Course Narrative: Patient's urinalysis is positive for UTI, white blood cell count within normal limits, normal blood pressure, no fever. Sepsis is not suspected. Patient given the 1st dose of Levaquin in the emergency room. Clinically, patient has pyelonephritis. Medications Administered Discontinued Medications Generic Name Dose Route Start Last Admin Trade Name Freq PRN Reason Stop Dose Admin Ketorolac Tromethamine 60 mg 11/02/22 22:25 11/02/22 22:32 Ketorolac Tromethamine 60 Mg/2 Ml Vial IM 11/02/22 22:26 60 mg ONCE ONE Administration Medical Decision Making Medical Decision Making [facility] Narrative: Patient feeling better after IM medication. Patient given the 1st dose of antibiotic in the emergency room. Differential Diagnosis Differential Diagnoses: The differential diagnosis associated with the presentation includes (Uterine fibroid, kidney stone, appendicitis, UTI, pyelonephritis) Lab Data [facility] Lab Attestation statement: I reviewed the patient's lab results. 11/02/22 22:22 11/02/22 22:22 Labs: Lab Results 11/02/22 11/02/22 11/02/22 Range/Units 22:22 22:22 22:22 WBC 7.7 (4.8-10.8) X10*3/uL RBC 4.18 L (4.20-5.50) X10*6/uL Hgb 12.1 (12.0-16.0) g/dl Hct 37.4 (37.0-47.0) % MCV 89.5 (80.0-98.0) fL MCH 28.9 (27.0-33.0) pg MCHC 32.4 (31.0-35.0) g/dl RDW 12.8 (11.0-16.0) % Plt Count 259 (160-400) X10*3/uL MPV 11.2 (9.4-12.3) fL Immature Gran % (Auto) 0.3 (0.0-0.4) % Neut % (Auto) 56.9 (45-73) % Lymph % (Auto) 30.8 (20-40) % [place] % (Auto) 8.6 (2-11) % Eos % (Auto) 2.5 (0-4) % Baso % (Auto) 0.9 (0-2) % Lymph # (Auto) 2.4 (1.2-4.9) X10*3/uL [place] # (Auto) 0.7 (0.1-1.2) X10*3/uL Eos # (Auto) 0.2 (0.0-0.4) X10*3/uL Baso # (Auto) 0.1 (0.0-0.2) X10*3/uL Abs Immat Gran (auto) 0.02 (0.00-0.03) X10*3/uL Absolute Neuts (auto) 4.4 (2.0-8.3) x10*3/uL Absolute Nucleated RBC 0.000 (0.0-0.012) X10*3/uL Nucleated RBC % (auto) 0.0 (0.0-0.2) /100WBC Sodium 142 (135-145) mmol/L Potassium 3.9 (3.3-5.1) mmol/L Chloride 106 (96-108) mmol/L Carbon Dioxide 29 (22-29) mmol/L Anion Gap 11 L (12-20) BUN 15 (9-16) mg/dL Creatinine 0.97 (0.5-1.4) mg/dL Estim Creat Clear Calc 53.7 Estimated GFR 57 Random Glucose 109 (60-115) mg/dL Calcium 9.1 (8.4-10.2) mg/dL Urine Color Yellow Urine Appearance Cloudy Urine pH 6.0 (5.0-9.0) Ur Specific [place] >= 1.030 H (1.005-1.025) Urine Protein 30 (1+) H (Neg-Trace) mg/dL Urine Glucose (UA) Negative (Negative) mg/dL Urine Ketones Trace (Negative) mg/dL Urine Blood Trace H (Negative) Urine Nitrite Negative (Negative) Ur Leukocyte Esterase Moderate (2+) H (Negative) Urine RBC 3-5 H (0-2) /HPF Urine WBC 21-50 H (0-5) /HPF Ur Squamous Epith Cells 6-10 (0-2) /HPF Calcium Oxalate Crystal Present Urine Bacteria None Seen (None Seen) Hyaline Casts 0-2 (0-2) /LPF Independent Interpretation I performed an independent interpretation of an: CT Scan ([place] position of CT scan, no kidney stones/ureterolithiasis) Radiology Impression Discussion of test interpretation with radiology: I have reviewed the radiologist's reading. Radiologist Impression: FINDINGS: LUNG BASES: Minimal bibasilar atelectasis. Mild elevation of the right hemidiaphragm.? LIVER, GALLBLADDER, AND BILIARY TREE: Normal hepatic size. Diffuse hepatic hypoattenuation/steatosis. No gross liver lesion. No biliary ductal dilation. Status post cholecystectomy.? PANCREAS: Unremarkable.? SPLEEN: Unremarkable.? ADRENAL GLANDS: Unremarkable.? KIDNEYS AND URETERS: The kidneys are normal in size, shape, and attenuation. No hydronephrosis, hydroureter, or calculi seen. No perinephric stranding. ? BLADDER: Unremarkable.? GASTROINTESTINAL TRACT: Small hiatal hernia. Colonic diverticulosis. No evidence of acute diverticulitis. No dilated bowel loops or bowel wall thickening. Suture material at the base of the cecum suggesting prior appendectomy. Correlate with surgical history. No inflammatory change at the cecal base. No free air or ascites.? ABDOMINAL WALL: Small fat-containing umbilical hernia.? LYMPH NODES: No lymphadenopathy. VASCULAR: Normal caliber abdominal aorta. Mild vascular calcifications. PELVIC VISCERA: Somewhat nodular appearance of the uterine fundus consistent with the presence of known fibroid seen on prior ultrasound 06/13/2022. Gynecologic structures otherwise unremarkable.? OSSEOUS STRUCTURES: No acute fracture or suspicious osseous lesion. Mild multilevel lumbar lordosis of the visualized thoracic and lumbar spine.? CT/CT abdomen pelvis wo IV con IMPRESSION: 1.? No acute intra-abdominal process. 2.? No evidence of nephrolithiasis or hydronephrosis. 3.? Colonic diverticulosis. No evidence of acute diverticulitis. 4.? Hepatic steatosis Discharge Plan Discharge Clinical Impression: Acute pyelonephritis Patient Disposition: Home, Self-Care Instructions: Kidney Infection (ED) Additional Instructions: Please follow-up with your primary care physician tomorrow. If you have any worsening or new symptoms, please return to the emergency room or call 911 Prescriptions: New levofloxacin 500 mg tablet 500 mg PO DAILY Qty: 9 0RF phenazopyridine 100 mg tablet 100 mg PO TID PRN (Reason: pain) Qty: 6 0RF No Action (DME) AeroEclipse II Nebulizer [facility] See Rx Instructions .ROUTE .MEDSUPPLY Qty: 1 0RF Rx Instructions: As directed albuterol sulfate 2.5 mg /3 mL (0.083 %) solution for nebulization 2.5 mg inhalation Q4-6H PRN (Reason: shortness of breath or wheezing) 30 Days Qty: 75 2RF atenolol 50 mg tablet 50 mg PO DAILY 90 Days Qty: 90 2RF gabapentin 100 mg capsule 100 mg PO BEDTIME 30 Days Qty: 30 6RF (DME) walker Misc See Rx Instructions .ROUTE .MEDSUPPLY Qty: 1 0RF Rx Instructions: As Directed clotrimazole-betamethasone 1-0.05 % cream 1 appl topical BID PRN (Reason: itching) 7 Days Qty: 45 0RF amlodipine 5 mg tablet 5 mg PO DAILY Qty: 30 6RF buspirone 10 mg tablet 10 mg PO BID 90 Days Qty: 180 1RF atorvastatin 20 mg tablet 20 mg PO BEDTIME 90 Days Qty: 90 1RF aspirin 81 mg tablet,delayed release (DR/EC) 81 mg PO DAILY 90 Days Qty: 90 3RF codeine-guaifenesin [Guaifenesin AC] 10-100 mg/5 mL liquid 5 ml PO Q6H PRN (Reason: cold symptoms) Qty: 120 0RF alcohol swabs Pads, Medicated topical citalopram 20 mg tablet PO ibuprofen 800 mg tablet 800 mg PO Q8H PRN (Reason: pain) 7 Days Qty: 21 0RF calcium carbonate-vitamin D3 [Oyster Shell Calcium-Vit D3] 500 mg-10 mcg (400 unit) tablet 1 tab PO DAILY 90 Days Qty: 90 2RF acetaminophen [Tylenol Arthritis Pain] 650 mg tablet extended release 650 mg PO Q8H PRN (Reason: pain) Qty: 90 4RF omeprazole 20 mg capsule,delayed release(DR/EC) 20 mg PO DAILY Qty: 90 3RF
[2022-11-02 22:27] LABS: MANUAL DIFF FLAG NO
[2022-11-02 22:31] LABS: Basophils Absolute Auto 0.1 X10*3/uL (0.0-0.2); Basophils Percent Auto 0.9 % (0-2); Eosinophils Absolute Auto 0.2 X10*3/uL (0.0-0.4); Eosinophils Percent Auto 2.5 % (0-4); Hematocrit 37.4 % (37.0-47.0); Hemoglobin 12.1 g/dl (12.0-16.0); Imm Gran Abs Auto 0.02 X10*3/uL (0.00-0.03); Imm Gran Pct Auto 0.3 % (0.0-0.4); Lymphocytes Absolute Auto 2.4 X10*3/uL (1.2-4.9); Lymphocytes Percent Auto 30.8 % (20-40); Mean Corpuscular HGB Conc 32.4 g/dl (31.0-35.0); Mean Corpuscular Hemoglobin 28.9 pg (27.0-33.0); Mean Corpuscular Volume 89.5 fL (80.0-98.0); Mean Platelet Volume 11.2 fL (9.4-12.3); Monocytes Absolute Auto 0.7 X10*3/uL (0.1-1.2); Monocytes Percent Auto 8.6 % (2-11); Neutrophils Absolute Auto 4.4 x10*3/uL (2.0-8.3); Neutrophils Percent Auto 56.9 % (45-73); Platelet Count 259 X10*3/uL (160-400); Red Blood Count 4.18 X10*6/uL (4.20-5.50); Red Cell Distribution Width 12.8 % (11.0-16.0); White Blood Count 7.7 X10*3/uL (4.8-10.8)
[2022-11-02 22:32] LABS: Appearance Urine Cloudy; Color Urine Yellow; Glucose Urine UA Negative (Negative); Leukocyte Esterase Urine Moderate (2+) (Negative); Nitrite Urine Negative (Negative); Specific Gravity - Urine >= 1.030 (1.005-1.025); UMIC TRIGGER UACC YES; Urine Blood Trace (Negative); Urine Ketones Trace mg/dL (Negative); Urine Protein 30 (1+) mg/dL (Neg-Trace)
[2022-11-02] MEDS: Ketorolac Tromethamine 60 MG/2 ML VIAL IM (22:32)
--- NOTE | 2022-11-02 22:38 | PC.NURSE ---
pt a&ox3, vss, labs obtained by [facility], medicated for 8/10 right lower abd/pelvic pain. no new orders at this time.
[2022-11-02 22:44] LABS: Bacteria Urine None Seen (None Seen); Calcium Oxalate Crystals Urine Present; Hyaline Casts Urine 0-2 /LPF (0-2); UACC Culture Trigger YES; WBC Urine 21-50 /HPF (0-5)
[2022-11-02 22:46] LABS: Anion Gap 11 (12-20); Blood Urea Nitrogen 15 mg/dL (9-16); Calcium 9.1 mg/dL (8.4-10.2); Carbon Dioxide 29 mmol/L (22-29); Chloride 106 mmol/L (96-108); Creatinine Clr Calc Pharmacy 53.7; Estimated Glomerular Filt Rate 57; Glucose Random 109 mg/dL (60-115); Potassium 3.9 mmol/L (3.3-5.1); Sodium 142 mmol/L (135-145)
[2022-11-02 23:44] LABS: Alanine Aminotransferase 29 U/L (0-31); Albumin Level 3.7 g/dL (3.5-5.0); Alkaline Phosphatase 144 U/L (39-117); Aspartate Amino Transferase 27 U/L (5-31); Bilirubin Direct < 0.2 mg/dL (0.0-0.5); Bilirubin Total 0.3 mg/dL (0.0-1.0); Lipase 32 U/L (8-78); Total Protein 6.6 g/dL (6.5-8.0)
[2022-11-02] MEDS: levoFLOXacin 500 MG TABLET PO (23:59)
== END 2022-11-03 00:07 | disposition home or self-care (01) ==
PROVIDERS: Emergency Provider Emergency Medicine; PCP Internal Medicine
DX: N10 Acute pyelonephritis (principal); R10.31 Right lower quadrant pain; R31.9 Hematuria, unspecified; Z79.899 Other long term (current) drug therapy
CPT/HCPCS: 36415; 74176; 80048; 80076; 81001; 83690; 85025; 87086; 96372; 99283; 99284; J1885

== ENCOUNTER → 2022-11-18 10:11 | Outpatient (BNVA) | payer MEDICARE, MEDICAID, SELFPAY | PROVIDERS: PCP Internal Medicine; Visit Provider Nurse Practitioner Family | DX: K21.9 Gastro-esophageal reflux disease without esophagitis (principal); K58.1 Irritable bowel syndrome with constipation; R10.12 Left upper quadrant pain | CPT/HCPCS: 99212 ==

== ENCOUNTER 2022-12-04 13:25 | Emergency (ER) | payer MEDICARE, MEDICAID, SELFPAY ==
--- NOTE | ~2022-12-04 | XR_ITS ---
EXAMINATION: XR CHEST CLINICAL INFORMATION: Cough and rib pain. COMPARISON: Chest radiographs dated 10/09/2022. TECHNIQUE: 2 views of the chest were obtained. FINDINGS: No significant abnormality is noted involving the heart, lungs, mediastinum, bony thorax or soft tissues. XR/XR chest 2V IMPRESSION: Unremarkable examination.
[2022-12-04 13:30] VITALS: BP 143/95; PULSE 95; RESP 16; TEMP 36.6; O2SAT 95; BMI 30.9
--- NOTE | 2022-12-04 13:31 | ED_ITS ---
HPI - URI/Sore Throat General Chief Complaint: Upper Respiratory Symptoms <MARCUS Brown - Last Filed: 12/04/22 13:36> Stated Complaint: back pain, cp <MARCUS Brown - Last Filed: 12/04/22 13:36> Time Seen by Provider: 12/04/22 16:05 <MARCUS Brown - Last Filed: 12/04/22 13:36> Source: patient <MARCUS Cr Last Filed: 12/04/22 19:05> Mode of arrival: ambulatory <MARCUS Cr Last Filed: 12/04/22 19:05> History of Present Illness HPI Narrative: 66-year-old female with a past medical history of asthma, depression, anxiety, diabetes, HTN, polyarthralgia, HLD, presenting to the ED complaining of dry cough, chest discomfort with cough, mild SOB, headache, myalgias/body aches since yesterday. Denies fever, chills, abdominal pain, nausea/vomiting, pedal edema, recent travel. Admits was in contact with somebody sick. <MARCUS Cr Last Filed: 12/04/22 19:05> MD elicited complaint: cough, rhinorrhea and nasal congestion <MARCUS Cr Last Filed: 12/04/22 19:05> Related Data Home Medications: Home Medications Medication Instructions Recorded Confirmed alcohol swabs pad topical 09/11/20 10/22/22 citalopram 20 mg tablet mg PO 09/11/20 10/22/22 Previous Rx's Medication Instructions Recorded acetaminophen 650 mg 650 mg PO Q8H PRN pain #90 tabs 10/23/20 tablet,extended release (Tylenol Arthritis Pain) ibuprofen 800 mg tablet 800 mg PO Q8H PRN pain 7 days #21 03/05/21 tabs nebulizers (AeroEclipse II #1 ea 04/01/21 Nebulizer) albuterol sulfate 2.5 mg/3 mL 2.5 mg (3 mL) inhalation Q4-6H PRN 04/10/21 (0.083 %) solution for nebulization shortness of breath or wheezing 30 days #75 mL atenolol 50 mg tablet 50 mg PO DAILY 90 days #90 tabs 05/31/21 gabapentin 100 mg capsule 100 mg PO BEDTIME 30 days #30 caps 09/06/21 walker #1 ea 11/08/21 clotrimazole-betamethasone 1 1 appl topical BID PRN itching 7 03/12/22 %-0.05 % topical cream days #45 grams omeprazole 20 mg capsule,delayed 20 mg PO DAILY #90 caps 07/30/22 release amlodipine 5 mg tablet 5 mg PO DAILY #30 tabs 09/09/22 atorvastatin 20 mg tablet 20 mg PO BEDTIME 90 days #90 tabs 09/09/22 buspirone 10 mg tablet 10 mg PO BID 90 days #180 tabs 09/09/22 aspirin 81 mg tablet,delayed 81 mg PO DAILY 90 days #90 tabs 09/24/22 release codeine 10 mg-guaifenesin 100 mg/5 5 ml PO Q6H PRN cold symptoms #120 10/09/22 mL oral liquid (Guaifenesin AC) mL calcium carbonate 500 mg-vitamin 1 tab PO DAILY 90 days #90 tabs 10/22/22 D3 10 mcg (400 unit) tablet (Oyster Shell Calcium-Vitamin D3) levofloxacin 500 mg tablet 500 mg PO DAILY #9 tabs 11/02/22 phenazopyridine 100 mg tablet 100 mg PO TID PRN pain 6 doses #6 11/02/22 tabs docusate sodium 100 mg capsule 100 mg PO BEDTIME #90 caps 11/18/22 polyethylene glycol 3350 17 17 g PO DAILY #510 grams 11/18/22 gram/dose oral powder (Miralax) albuterol sulfate 90 mcg/actuation 2 puff inhalation Q4-6H PRN 12/04/22 aerosol inhaler shortness of breath or wheezing #6.7 grams benzonatate 100 mg capsule 100 mg PO TID PRN cough #14 caps 12/04/22 fluticasone propionate 50 2 spray intranasal DAILY #16 grams 12/04/22 mcg/actuation nasal spray,suspension (Flonase Allergy Relief) <MARCUS Brown - Last Filed: 12/04/22 13:36> Allergies/Adverse Reactions: Allergies Allergy/AdvReac Type Severity Reaction Status Date / Time Penicillins Allergy Intermediate DIZZINESS, Verified 11/18/22 10:22 RASH tramadol [TRAMADOL] Allergy Intermediate NAUSEA & Verified 11/18/22 10:22 VOMITING egg [Egg] AdvReac Intermediate NAUSEA & Verified 11/18/22 10:22 VOMITING morphine AdvReac Intermediate Chest Pain Verified 11/18/22 10:22 oxycodone AdvReac Dizziness Verified 12/04/22 13:33 FANY DRINK Allergy Intermediate NAUSEA & Uncoded 11/18/22 10:22 VOMITING <MARCUS Brown - Last Filed: 12/04/22 13:36> Review of Systems Review of Systems: Constitutional: No Fever, No Chills ENT/Mouth: No Ear Pain, + Nasal Congestion, No Sinus Pain, No Hoarseness, No sore throat, + Rhinorrhea, No Swallowing Difficulty Cardiovascular: + Chest Pain when coughing, + SOB Respiratory: + Cough, No Sputum, No Wheezing Gastrointestinal: No Nausea, No Vomiting, No Abdominal pain Genitourinary: No Dysuria, No Urinary Frequency, No Hematuria, No Flank Pain Musculoskeletal: No joint pain, + Myalgias, No Joint Swelling Skin: No Skin Lesions, No rash Neuro: No Weakness, No Numbness <MARCUS Cr - Last Filed: 12/04/22 19:05> Yes all other systems are reviewed and are negative <MARCUS Cr - Last Filed: 12/04/22 19:05> Constitutional: Constitutional: Reports as per HPI <MARCUS Cr - Last Filed: 12/04/22 19:05> [facility] Past Medical History Attestation statement: The following information was validated with the patient. <MARCUS Cr - Last Filed: 12/04/22 19:05> Medical History: Medical History Abdominal pain Asthma Back pain Depression with anxiety Diabetes mellitus Essential hypertension Exposure to COVID-19 virus Hiatal hernia Left ankle pain Left knee pain Mild depression Polyarthralgia Pure hypercholesterolemia Right shoulder pain TIA (transient ischemic attack) Vaginal pruritus Vitamin D deficiency <MARCUS Brown - Last Filed: 12/04/22 13:36> Surgical History: Surgical History History of appendectomy History of cholecystectomy History of colonoscopy History of cyst of breast History of exploratory laparotomy History of hemicolectomy History of tooth extraction <MARCUS Brown - Last Filed: 12/04/22 13:36> Family History Family History: Family History Father No problems noted. Mother Hypertension Stroke Diabetes Brother Leptospirosis Brother No problems noted. Family/Other FH: mental illness <MARCUS Brown - Last Filed: 12/04/22 13:36> Social History Social History: Social History Housing: Apartment Alcohol intake: never Patient Tobacco Use Status: Never used Tobacco e-Cigarette/Vaping Use: Never Used Second Hand Smoke Exposure: No Advance Directives: No service: No Current occupational status: unemployed Sexual orientation: Straight/Heterosexual Gender identity: Female Cognitive needs: Yes Hearing needs: No Vision needs: Yes <MARCUS Brown - Last Filed: 12/04/22 13:36> Physical Exam Vital Signs: Vital Signs: Last Vital Signs Temp 98 F 12/04/22 13:30 Pulse 95 12/04/22 13:30 Resp 16 12/04/22 13:30 BP 143/95 H 12/04/22 13:30 Pulse Ox 95 12/04/22 13:30 O2 Del Method 12/04/22 13:30 BMI result Body Mass Index 30.9 <MARCUS Brown - Last Filed: 12/04/22 13:36> Vital Signs: Last Vital Signs Temp 98 F 12/04/22 13:30 Pulse 95 12/04/22 13:30 Resp 16 12/04/22 13:30 BP 143/95 H 12/04/22 13:30 Pulse Ox 95 12/04/22 13:30 O2 Del Method 12/04/22 13:30 BMI result Body Mass Index 30.9 <MARCUS Cr - Last Filed: 12/04/22 19:05> Vital Signs: Last Vital Signs Temp 98 F 12/04/22 13:30 Pulse 95 12/04/22 13:30 Resp 16 12/04/22 13:30 BP 143/95 H 12/04/22 13:30 Pulse Ox 95 12/04/22 13:30 O2 Del Method 12/04/22 13:30 BMI result Body Mass Index 30.9 <Delano Moraes MD - Last Filed: 12/11/22 16:30> Const: General: cooperative, healthy appearing and no acute distress <MARCUS Cr - Last Filed: 12/04/22 19:05> Orientation/consciousness: patient oriented x3 <MARCUS Cr - Last Filed: 12/04/22 19:05> Limitations: no limitations <MARCUS Cr - Last Filed: 12/04/22 19:05> HEENT: Head: Yes normal to inspection and Yes atraumatic <MARCUS Cr - Last Filed: 12/04/22 19:05> Ears: hearing grossly normal bilaterally, TM's normal bilaterally and mastoids normal <MARCUS rC - Last Filed: 12/04/22 19:05> General nose exam: Normal external nose present <MARCUS Cr - Last Filed: 12/04/22 19:05> Face and sinus: Yes normal facial exam <MARCUS Cr - Last Filed: 12/04/22 19:05> Throat: Yes posterior oropharynx normal, Yes tonsils normal, Yes uvula midline, No peritonsillar mass, No uvula laterally displaced and No uvular edema <MARCUS Cr - Last Filed: 12/04/22 19:05> Eyes: General: appearance normal, both eyes and all related structures <MARCUS Cr - Last Filed: 12/04/22 19:05> EOM: EOMs intact bilaterally <MARCUS Cr - Last Filed: 12/04/22 19:05> Neck: Neck: Yes normal visual inspection and Yes no meningeal signs <MARCUS Cr - Last Filed: 12/04/22 19:05> Resp: Effort & Inspection: normal respiratory effort and no respiratory distress <MARCUS Cr - Last Filed: 12/04/22 19:05> Auscultation: clear to auscultation bilaterally, no crackles, no rales and no rhonchi <MARCUS Cr - Last Filed: 12/04/22 19:05> Cardio: Rate: regular rate <MARCUS Cr - Last Filed: 12/04/22 19:05> Heart sounds: S1 normal heart sound present and S2 normal heart sound present <MARCUS Cr - Last Filed: 12/04/22 19:05> GI: Inspection: Yes normal to inspection <MARCUS Cr - Last Filed: 12/04/22 19:05> Palpation (GI): Soft to palpation, nontender, no guarding and not rigid <MARCUS Cr - Last Filed: 12/04/22 19:05> Skin: Rashes: no rashes <MARCUS Cr - Last Filed: 12/04/22 19:05> Wounds: no wounds <MARCUS Cr - Last Filed: 12/04/22 19:05> Neuro: General: patient oriented x3, tone normal and no meningeal signs <MARCUS Cr - Last Filed: 12/04/22 19:05> Gait exam (Neuro): Normal gait present <MARCUS Cr - Last Filed: 12/04/22 19:05> Extrem: General: Yes normal to inspection, Yes no pedal edema and Yes no calf tenderness <MARCUS Cr - Last Filed: 12/04/22 19:05> Course Course Course Narrative: RME-13:32pm 66-year-old female with a past medical history of asthma, depression with anxiety, diabetes, hypertension, hiatal hernia, hyperlipidemia, TIA?of subjective fevers, chills, fatigue, malaise, headaches, body aches, cough with rib cage pain for the past 2 days worse today. Denies recent travel or sick contacts. Denies chest pain or shortness of breath or dyspnea on exertion or any other symptoms complaints or concerns at this time. Plan: Will obtain COVID/RSV/flu swab and chest x-ray patient will be sent back to the waiting room to be evaluated in [facility]. <MARCUS Brown - Last Filed: 12/04/22 13:36> RME-13:32pm 66-year-old female with a past medical history of asthma, depression with anxiety, diabetes, hypertension, hiatal hernia, hyperlipidemia, TIA?of subjective fevers, chills, fatigue, malaise, headaches, body aches, cough with rib cage pain for the past 2 days worse today. Denies recent travel or sick contacts. Denies chest pain or shortness of breath or dyspnea on exertion or any other symptoms complaints or concerns at this time. Plan: Will obtain COVID/RSV/flu swab and chest x-ray patient will be sent back to the waiting room to be evaluated in [facility] [place]. -[id number]/RSV negative. CXR unremarkable Results discussed with patient including worrisome signs and symptoms and strict return precautions, and when to return to the emergency department. They verbalized understanding and feel safe for discharge at this time. <MARCUS Cr - Last Filed: 12/04/22 19:05> Medical Decision Making Medical Decision Making MDM Narrative: 66-year-old female with a past medical history of asthma, depression, anxiety, diabetes, HTN, polyarthralgia, HLD, presenting to the ED complaining of dry cough, chest discomfort with cough, mild SOB, headache, myalgias/body aches since yesterday. On exam vital signs stable, NAD, nontoxic appearing, lungs CTA, no pedal edema/tenderness. Concern for viral illness. Rule out pneumonia. Symptoms atypical for ACS/PE or CHF. Plan: COVID-19/influenza/RSV testing, CXR Please refer to course for remaining clinical decision making, interpretation of labs/imaging results, and discussions with consultants and/or family members. <MARCUS Cr - Last Filed: 12/04/22 19:05> Differential Diagnosis Differential Diagnoses: The differential diagnosis associated with the presentation includes <MARCUS Cr Last Filed: 12/04/22 19:05> As above <MARCUS Cr - Last Filed: 12/04/22 19:05> Lab Data MDM Lab Attestation statement: I reviewed the patient's lab results. <MARCUS rC - Last Filed: 12/04/22 19:05> Labs: Lab Results 12/04/22 Range/Units 14:06 Influenza Type A (PCR) NEGATIVE (Negative) Influenza Type B (PCR) NEGATIVE (Negative) RSV RNA Qual (PCR) NEGATIVE (Negative) SARS-CoV-2 RNA (RT-PCR) NEGATIVE (Negative) <MARCUS Brown - Last Filed: 12/04/22 13:36> Lab Results 12/04/22 Range/Units 14:06 Influenza Type A (PCR) NEGATIVE (Negative) Influenza Type B (PCR) NEGATIVE (Negative) RSV RNA Qual (PCR) NEGATIVE (Negative) SARS-CoV-2 RNA (RT-PCR) NEGATIVE (Negative) <MARCUS Cr - Last Filed: 12/04/22 19:05> Lab Results 12/04/22 Range/Units 14:06 Influenza Type A (PCR) NEGATIVE (Negative) Influenza Type B (PCR) NEGATIVE (Negative) RSV RNA Qual (PCR) NEGATIVE (Negative) SARS-CoV-2 RNA (RT-PCR) NEGATIVE (Negative) <Delano Moraes MD - Last Filed: 12/11/22 16:30> Radiology Impression Discussion of test interpretation with radiology: I have reviewed the radiologist's reading. <MARCUS Cr - Last Filed: 12/04/22 19:05> Radiologist Impression: Chest x-ray unremarkable <MARCUS Cr - Last Filed: 12/04/22 19:05> Prescription Management I considered prescription management with: Antiviral and Antibiotic <MARCUS Cr - Last Filed: 12/04/22 19:05> Attestation Attending Attestation: I reviewed COMMAND AND CONTROL SYSTEMS INTEGRATOR/PA/Resident note, assessment and plan. I agree with the documentation, assessment and plan unless otherwise stated. <Delano Moraes MD - Last Filed: 12/11/22 16:30> Discharge Plan Discharge Clinical Impression: Viral infection <MARCUS Brown - Last Filed: 12/04/22 13:36> Patient Disposition: Home, Self-Care <MARCUS Brown - Last Filed: 12/04/22 13:36> Instructions: Viral Syndrome (ED) <MARCUS Brown - Last Filed: 12/04/22 13:36> Additional Instructions: You tested negative for COVID-19, the flu, and RSV. Your x-ray is unremarkable. Tessalon Perles are for cough take as needed Use albuterol inhaler as needed for shortness of breath/wheezing Take Tylenol and Motrin Rest Follow-up with her doctor. If symptoms persist or worsen return to the ED Colin negativo en la prueba de COVID-19, gripe y RSV. Grossman radiograf?a no tiene nada especial. Tessalon Perles son para la tos, tome seg?n sea necesario Use el inhalador de albuterol seg?n sea necesario para la dificultad para respirar/sibilancias Shannon Tylenol y Motrin Descansar Seguimiento con grossman m?dico. Si los s?ntomas persisten o empeoran, regrese al servicio de urgencias. <MARCUS Brown - Last Filed: 12/04/22 13:36> Prescriptions: New benzonatate 100 mg capsule 100 mg PO TID PRN (Reason: cough) Qty: 14 0RF fluticasone propionate [Flonase Allergy Relief] 50 mcg/actuation spray,suspension 2 spray intranasal DAILY Qty: 16 0RF Rx Instructions: administer into each nostril albuterol sulfate 90 mcg/actuation HFA aerosol inhaler 2 puff inhalation Q4-6H PRN (Reason: shortness of breath or wheezing) Qty: 6.7 0RF No Action (DME) AeroEclipse II Nebulizer Misc See Rx Instructions .ROUTE .MEDSUPPLY Qty: 1 0RF Rx Instructions: As directed albuterol sulfate 2.5 mg /3 mL (0.083 %) solution for nebulization 2.5 mg inhalation Q4-6H PRN (Reason: shortness of breath or wheezing) 30 Days Qty: 75 2RF atenolol 50 mg tablet 50 mg PO DAILY 90 Days Qty: 90 2RF gabapentin 100 mg capsule 100 mg PO BEDTIME 30 Days Qty: 30 6RF (DME) walker Misc See Rx Instructions .ROUTE .MEDSUPPLY Qty: 1 0RF Rx Instructions: As Directed clotrimazole-betamethasone 1-0.05 % cream 1 appl topical BID PRN (Reason: itching) 7 Days Qty: 45 0RF amlodipine 5 mg tablet 5 mg PO DAILY Qty: 30 6RF buspirone 10 mg tablet 10 mg PO BID 90 Days Qty: 180 1RF atorvastatin 20 mg tablet 20 mg PO BEDTIME 90 Days Qty: 90 1RF aspirin 81 mg tablet,delayed release (DR/EC) 81 mg PO DAILY 90 Days Qty: 90 3RF levofloxacin 500 mg tablet 500 mg PO DAILY Qty: 9 0RF phenazopyridine 100 mg tablet 100 mg PO TID PRN (Reason: pain) Qty: 6 0RF codeine-guaifenesin [Guaifenesin AC] 10-100 mg/5 mL liquid 5 ml PO Q6H PRN (Reason: cold symptoms) Qty: 120 0RF alcohol swabs Pads, Medicated topical citalopram 20 mg tablet PO ibuprofen 800 mg tablet 800 mg PO Q8H PRN (Reason: pain) 7 Days Qty: 21 0RF calcium carbonate-vitamin D3 [Oyster Shell Calcium-Vit D3] 500 mg-10 mcg (400 unit) tablet 1 tab PO DAILY 90 Days Qty: 90 2RF acetaminophen [Tylenol Arthritis Pain] 650 mg tablet extended release 650 mg PO Q8H PRN (Reason: pain) Qty: 90 4RF omeprazole 20 mg capsule,delayed release(DR/EC) 20 mg PO DAILY Qty: 90 3RF polyethylene glycol 3350 [Miralax] 17 gram/dose powder 17 g PO DAILY Qty: 510 2RF docusate sodium 100 mg capsule 100 mg PO BEDTIME Qty: 90 3RF <MARCUS Brown - Last Filed: 12/04/22 13:36> Referrals: Aure Barrett MD [Primary Care Provider] - 5 days <MARCUS Brown - Last Filed: 12/04/22 13:36> Interventions: ED Discharge Assessment Last Done: 12/04/22 17:12 <MARCUS Brown - Last Filed: 12/04/22 13:36> Discharge Date/Time: 12/04/22 17:12 <MARCUS Brown - Last Filed: 12/04/22 13:36> Print Language: Slovenian <MARCUS Brown - Last Filed: 12/04/22 13:36>
[2022-12-04 15:04] LABS: Influenza A PCR NEGATIVE (Negative); Influenza B PCR NEGATIVE (Negative); Resp Syncy Virus RNA Qual PCR NEGATIVE (Negative); SARS COV2 PCR INHOUSE NEGATIVE (Negative)
== END 2022-12-04 17:12 | disposition home or self-care (01) ==
PROVIDERS: Physician Assistant Medical; Emergency Provider Emergency Medicine; PCP Internal Medicine
DX: B34.9 Viral infection, unspecified (principal); R50.9 Fever, unspecified; R07.89 Other chest pain; R06.02 Shortness of breath; M79.10 Myalgia, unspecified site; Z20.822 Contact with and (suspected) exposure to COVID-19; Z20.828 Contact with and (suspected) exposure to other viral communicable diseases; Z79.899 Other long term (current) drug therapy
CPT/HCPCS: 0241U; 71046; 99282; 99283; 99284

== ENCOUNTER 2022-12-26 12:31 | Outpatient (REF) | payer OTHER, SELFPAY ==
--- NOTE | ~2022-12-26 | US_ITS ---
EXAMINATION: US PELVIS CLINICAL INFORMATION: Leiomyoma of the uterus COMPARISON: Ultrasound pelvis 06/13/2022. TECHNIQUE: Ultrasound of the pelvis is performed using both transabdominal and transvaginal transducers along with Doppler. Transvaginal imaging is performed due to inadequate visualization transabdominally. FINDINGS: Uterus: The uterus is anteverted, anteflexed and measures 7.9 x 4.0 x 4.5 cm. The double wall endometrial thickness is 0.6 cm. The uterus is smooth in contour and has normal myometrial echogenicity. There is a hypoechoic lesion in the fundal uterus measuring 2.9 x 3.0 x 2 8). Previously it measured 2.5 x 2.2 x 2.6 cm. Adnexa: Both ovaries are visualized. There is normal color flow to the adnexa. There is no ovarian torsion. There is no pelvic ascites or fluid collection. Right ovary measures 1.6-0 0.5 x 1.1 CM and volume 0.5 mL. It appears unremarkable. Previously right ovary measured 1.0 x 1.1 x 0.9 cm. Left ovary measures 1.6 x 0.9 x 1.0 cm. And volume 0.8 mL. It appears unremarkable.Previously left ovary measured 1.5 x 1.1 x 1.2 cm. There is no free fluid in the pelvis. US/US pelvic and transvaginal IMPRESSION: 1. Fundal uterine fibroid measuring 3 cm. Minimally increased from the last study. 2. The ovaries are unremarkable. 3. There is no free fluid in the cul-de-sac.
== END 2022-12-26 12:32 | disposition home or self-care (01) ==
LOC: HO.US 12:31
PROVIDERS: PCP Internal Medicine; Visit Provider Advanced Practice Midwife
DX: D25.9 Leiomyoma of uterus, unspecified (principal)
CPT/HCPCS: 76830; 76856

== ENCOUNTER → 2023-01-08 13:10 | Outpatient (BNVA) | payer OTHER, SELFPAY | PROVIDERS: PCP Internal Medicine; Visit Provider Advanced Practice Midwife | DX: Z71.2 Person consulting for explanation of examination or test findings (principal); D21.9 Benign neoplasm of connective and other soft tissue, unspecified | CPT/HCPCS: 81003; 99212 ==

== ENCOUNTER → 2023-01-27 14:42 | Outpatient (BNVA) | payer OTHER, SELFPAY | PROVIDERS: PCP Internal Medicine; Referring Provider Internal Medicine; Visit Provider Nurse Practitioner Family ==

== ENCOUNTER 2023-01-27 15:53 | Emergency (ER) | payer OTHER, SELFPAY ==
--- NOTE | ~2023-01-27 | CT_ITS ---
EXAMINATION: CT HEAD WITHOUT CONTRAST CLINICAL INFORMATION: Headache COMPARISON: 01/07/2022 TECHNIQUE: Contiguous axial imaging was performed from the skull base to vertex without intravenous administration of contrast. This CT examination was performed using dose optimization techniques as appropriate, variously including the following: *Automated exposure control *Adjustment of mA and/or kV according to patient size (this includes techniques or standardized protocols for targeted exams where dose is matched to indication/reason for exam; i.e. extremities or head) *Use of iterative reconstruction technique DLP: 626 mGy-cm FINDINGS: There is no evidence of acute intracranial hemorrhage or territorial infarction. No abnormal mass effect or midline shift is seen. [place] to white matter differentiation is well preserved. No extra-axial fluid collections are identified. The ventricles are normal in size. There is no abnormal attenuation within the brain parenchyma. The osseous structures and soft tissues are normal. The mastoid air cells and visualized portions of the paranasal sinuses are well-aerated. CT/CT head/brain wo IV con IMPRESSION: No acute intracranial pathology.
[2023-01-27 16:28] VITALS: BP 229/90; PULSE 73; RESP 18; TEMP 36.9; O2SAT 98; BMI 33.6
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
--- NOTE | 2023-01-27 16:32 | ECG_ITS ---
Test Reason : HYPERTENSION Blood Pressure : / mmHG Vent. Rate : 068 BPM Atrial Rate : 068 BPM P-R Int : 158 ms QRS Dur : 086 ms QT Int : 412 ms P-R-T Axes : 071 -27 065 degrees QTc Int : 438 ms Normal sinus rhythm Moderate voltage criteria for LVH, may be normal variant ( R in aVL , [place] product ) Nonspecific T wave abnormality Abnormal ECG When compared with ECG of 26-NOV-2021 12:11, No significant change was found Referred By: Beatriz Buck Electronically Signed By:MANUEL PEREIRA MD
[2023-01-27 16:55] LABS: MANUAL DIFF FLAG NO
[2023-01-27 16:59] LABS: Basophils Absolute Auto 0.1 X10*3/uL (0.0-0.2); Basophils Percent Auto 1.2 % (0-2); Eosinophils Absolute Auto 0.2 X10*3/uL (0.0-0.4); Eosinophils Percent Auto 1.9 % (0-4); Hematocrit 38.3 % (37.0-47.0); Hemoglobin 12.3 g/dl (12.0-16.0); Imm Gran Abs Auto 0.03 X10*3/uL (0.00-0.03); Imm Gran Pct Auto 0.4 % (0.0-0.4); Lymphocytes Absolute Auto 2.1 X10*3/uL (1.2-4.9); Lymphocytes Percent Auto 26.2 % (20-40); Mean Corpuscular HGB Conc 32.1 g/dl (31.0-35.0); Mean Corpuscular Hemoglobin 29.5 pg (27.0-33.0); Mean Corpuscular Volume 91.8 fL (80.0-98.0); Mean Platelet Volume 11.3 fL (9.4-12.3); Monocytes Absolute Auto 0.5 X10*3/uL (0.1-1.2); Monocytes Percent Auto 6.7 % (2-11); Neutrophils Absolute Auto 5.2 x10*3/uL (2.0-8.3); Neutrophils Percent Auto 63.6 % (45-73); Platelet Count 284 X10*3/uL (160-400); Red Blood Count 4.17 X10*6/uL (4.20-5.50); Red Cell Distribution Width 13.2 % (11.0-16.0); White Blood Count 8.1 X10*3/uL (4.8-10.8)
[2023-01-27 17:04] LABS: INTERNATIONAL NORM RATIO 1.1 (0.9-1.1); Prothrombin Time 12.1 SEC (10.0-13.1)
[2023-01-27 17:14] LABS: Alanine Aminotransferase 27 U/L (0-31); Alkaline Phosphatase 140 U/L (39-117); Anion Gap 14 (12-20); Aspartate Amino Transferase 26 U/L (5-31); Bilirubin Direct 0.1 mg/dL (0.0-0.5); Bilirubin Total 0.3 mg/dL (0.0-1.0); Blood Urea Nitrogen 13 mg/dL (9-16); Calcium 9.4 mg/dL (8.4-10.2); Carbon Dioxide 26 mmol/L (22-29); Chloride 106 mmol/L (96-108); Creatinine Clr Calc Pharmacy 58.7; Estimated Glomerular Filt Rate > 60; Glucose Random 131 mg/dL (60-115); Potassium 4.6 mmol/L (3.3-5.1); Sodium 141 mmol/L (135-145); Total Protein 6.8 g/dL (6.5-8.0)
[2023-01-27 17:20] LABS: Troponin-I High Sensitivity 4.7 ng/L (<3.5-17.0)
[2023-01-27 17:36] VITALS: BP 221/85; PULSE 62; RESP 13; TEMP 36.8; O2SAT 99
--- NOTE | 2023-01-27 18:08 | PC.NURSE ---
Addendum entered by Alice Hair RN 01/27/23 18:15: Pt reports not taking her BP meds today due to running out at home. Original Note: Pt lying semi-fowlers in stretcher, airway open and patent, no obvious signs of distress, no difficulty breathing. 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 Skin normal for ethnicity, warm, and dry. A&ox4. Lung sounds clr and equal bilaterally. Heart sounds normal. Bowel sounds present all mazariegos, abdomen soft, non-tender. No edema noted. Pt complaining of left sided head pain. Normal sinus on monitor. Neuros intact.
[2023-01-27 18:30] VITALS: BP 199/83; PULSE 60; RESP 18; O2SAT 98
[2023-01-27] MEDS: amLODIPine Besylate 2.5 MG TABLET 7.5 MG PO (18:31)
[2023-01-27 19:41] VITALS: BP 108/86; PULSE 78; RESP 18; TEMP 36.1; O2SAT 100
== END 2023-01-27 19:44 | disposition home or self-care (01) ==
PROVIDERS: Physician Assistant; Emergency Provider Student in an Organized Health Care Education/Training Program; PCP Internal Medicine
DX: I16.0 Hypertensive urgency (principal); R51.9 Headache, unspecified; H57.12 Ocular pain, left eye; R94.31 Abnormal electrocardiogram [ECG] [EKG]; K21.9 Gastro-esophageal reflux disease without esophagitis; K59.00 Constipation, unspecified; Z79.899 Other long term (current) drug therapy
CPT/HCPCS: 36415; 70450; 80048; 80076; 84484; 85025; 85610; 93005; 99212; 99284

== ENCOUNTER 2023-01-31 02:36 | Emergency (ER) | payer OTHER, SELFPAY ==
--- NOTE | ~2023-01-31 | XR_ITS ---
EXAMINATION: XR CHEST CLINICAL INFORMATION: Chest pain COMPARISON: 12/04/2022 TECHNIQUE: Frontal view of the chest was obtained. FINDINGS: Cardiac leads overlie the chest. Mild elevation of the right hemidiaphragm. No consolidation, edema, or effusion. No pneumothorax. The cardiomediastinal silhouette is within normal limits. XR/XR chest 1V IMPRESSION: No acute pulmonary disease.
--- NOTE | ~2023-01-31 | CT_ITS ---
EXAMINATION: CT ANGIOGRAM OF THE CHEST WITH AND WITHOUT CONTRAST (CT PULMONARY ANGIOGRAM FOR PE) CLINICAL INFORMATION: Reason for Exam Right-sided chest pain with elevated D-dimer COMPARISON: Chest radiograph from today. CT from 10/30/2018. TECHNIQUE: Prior to contrast administration, noncontrast localization images were obtained. Subsequently, multidetector volumetric imaging was performed from the thoracic inlet to below the diaphragms following the administration of 75 mL Omnipaque 350 intravenous contrast. No contrast reaction reported Sagittal, coronal, and MIP oblique sagittal reformatted images were obtained on the CT workstation, uploaded to PACS, and reviewed. This CT examination was performed using dose optimization techniques as appropriate, variously including the following: *Automated exposure control *Adjustment of mA and/or kV according to patient size (this includes techniques or standardized protocols for targeted exams where dose is matched to indication/reason for exam; i.e. extremities or head) *Use of iterative reconstruction technique Total exam dose-length product 360 mGy-cm FINDINGS: QUALITY OF STUDY/CONTRAST BOLUS: Satisfactory. PULMONARY ARTERIES: No pulmonary emboli. THORACIC AORTA: No aneurysm. LUNG: No focal consolidation, nodules or masses. The central airways are patent. Minimal left basilar linear atelectasis. PLEURA: No pleural effusion or pneumothorax. MEDIASTINUM: Normal heart size. No pericardial effusion. No hilar or mediastinal lymphadenopathy. No evidence of septal bowing or right heart strain. CORONARY ARTERY CALCIFICATION: None visualized on this study. CHEST WALL/AXILLA: No axillary or internal mammary lymphadenopathy. OSSEOUS STRUCTURES: No acute or suspicious osseous abnormality. Mild degenerative changes throughout the spine. UPPER ABDOMEN: Unremarkable. No reflux of contrast into the hepatic veins to suggest elevated right heart pressures. CT/CT angio chest PE protocol IMPRESSION: No pulmonary embolism or other acute intrathoracic abnormality. VTE: negative
[2023-01-31 02:39] VITALS: BP 190/90; PULSE 64; O2SAT 99
--- NOTE | 2023-01-31 02:43 | ECG_ITS ---
Test Reason : SOB Blood Pressure : / mmHG Vent. Rate : 063 BPM Atrial Rate : 063 BPM P-R Int : 138 ms QRS Dur : 078 ms QT Int : 434 ms P-R-T Axes : 046 -24 068 degrees QTc Int : 444 ms Normal sinus rhythm Minimal voltage criteria for LVH, may be normal variant ( R in aVL ) Nonspecific T wave abnormality Abnormal ECG When compared with ECG of 27-JAN-2023 16:41, No significant change was found Referred By: Generic ED Physician Electronically Signed By:MANUEL PEREIRA MD
[2023-01-31 02:55] VITALS: BP 191/66; PULSE 63; RESP 19; TEMP 37.2; O2SAT 98
[2023-01-31 03:10] LABS: MANUAL DIFF FLAG NO
[2023-01-31 03:12] VITALS: BP 191/66; PULSE 64; RESP 16; O2SAT 98; BMI 33.6
[2023-01-31 03:12] LABS: Basophils Absolute Auto 0.1 X10*3/uL (0.0-0.2); Basophils Percent Auto 0.8 % (0-2); Eosinophils Absolute Auto 0.2 X10*3/uL (0.0-0.4); Eosinophils Percent Auto 2.7 % (0-4); Hemoglobin 11.8 g/dl (12.0-16.0); Imm Gran Abs Auto 0.02 X10*3/uL (0.00-0.03); Imm Gran Pct Auto 0.2 % (0.0-0.4); Lymphocytes Absolute Auto 2.7 X10*3/uL (1.2-4.9); Lymphocytes Percent Auto 30.1 % (20-40); Mean Corpuscular HGB Conc 32.8 g/dl (31.0-35.0); Mean Corpuscular Hemoglobin 29.1 pg (27.0-33.0); Mean Corpuscular Volume 88.9 fL (80.0-98.0); Mean Platelet Volume 10.9 fL (9.4-12.3); Monocytes Absolute Auto 0.8 X10*3/uL (0.1-1.2); Monocytes Percent Auto 8.5 % (2-11); Neutrophils Absolute Auto 5.1 x10*3/uL (2.0-8.3); Neutrophils Percent Auto 57.7 % (45-73); Platelet Count 277 X10*3/uL (160-400); Red Blood Count 4.05 X10*6/uL (4.20-5.50); White Blood Count 8.8 X10*3/uL (4.8-10.8)
[2023-01-31 03:14] VITALS: PULSE 64
[2023-01-31 03:30] LABS: Troponin-I High Sensitivity 3.9 ng/L (<3.5-17.0)
--- NOTE | 2023-01-31 03:31 | PC.NURSE ---
Dr Kennedy aware of high BP.
--- NOTE | 2023-01-31 03:33 | ED.CHESTPAIN ---
HPI - Chest Pain General Chief Complaint: Chest Pain Stated Complaint: CP Time Seen by Provider: 01/31/23 03:32 Related Data Home Medications Medication Instructions Recorded Confirmed alcohol swabs pad topical 09/11/20 01/30/23 citalopram 20 mg tablet mg PO 09/11/20 01/30/23 Previous Rx's Medication Instructions Recorded acetaminophen 650 mg 650 mg PO Q8H PRN pain #90 tabs 10/23/20 tablet,extended release (Tylenol Arthritis Pain) ibuprofen 800 mg tablet 800 mg PO Q8H PRN pain 7 days #21 03/05/21 tabs nebulizers (AeroEclipse II #1 ea 04/01/21 Nebulizer) gabapentin 100 mg capsule 100 mg PO BEDTIME 30 days #30 caps 09/06/21 walker #1 ea 11/08/21 clotrimazole-betamethasone 1 1 appl topical BID PRN itching 7 03/12/22 %-0.05 % topical cream days #45 grams buspirone 10 mg tablet 10 mg PO BID 90 days #180 tabs 09/09/22 aspirin 81 mg tablet,delayed 81 mg PO DAILY 90 days #90 tabs 09/24/22 release codeine 10 mg-guaifenesin 100 mg/5 5 ml PO Q6H PRN cold symptoms #120 10/09/22 mL oral liquid (Guaifenesin AC) mL levofloxacin 500 mg tablet 500 mg PO DAILY #9 tabs 11/02/22 phenazopyridine 100 mg tablet 100 mg PO TID PRN pain 6 doses #6 11/02/22 tabs albuterol sulfate 90 mcg/actuation 2 puff inhalation Q4-6H PRN 12/04/22 aerosol inhaler shortness of breath or wheezing #6.7 grams benzonatate 100 mg capsule 100 mg PO TID PRN cough #14 caps 12/04/22 fluticasone propionate 50 2 spray intranasal DAILY #16 grams 12/04/22 mcg/actuation nasal spray,suspension (Flonase Allergy Relief) docusate sodium 100 mg capsule 100 mg PO BEDTIME #90 caps 01/27/23 omeprazole 20 mg capsule,delayed 20 mg PO DAILY #90 caps 01/27/23 release polyethylene glycol 3350 17 17 g PO DAILY #510 grams 01/27/23 gram/dose oral powder (Miralax) albuterol sulfate 2.5 mg/3 mL 2.5 mg (3 mL) inhalation Q4-6H PRN 01/29/23 (0.083 %) solution for nebulization shortness of breath or wheezing 30 days #75 mL amlodipine 5 mg tablet 5 mg PO DAILY #30 tabs 01/29/23 atorvastatin 20 mg tablet 20 mg PO BEDTIME 90 days #90 tabs 01/29/23 calcium carbonate 500 mg-vitamin 1 tab PO DAILY 90 days #90 tabs 01/29/23 D3 10 mcg (400 unit) tablet (Oyster Shell Calcium-Vitamin D3) atenolol 50 mg tablet 50 mg PO DAILY 90 days #90 tabs 01/30/23 ibuprofen 600 mg tablet 600 mg PO Q6H PRN fever or pain 01/31/23 #30 tabs Allergies Allergy/AdvReac Type Severity Reaction Status Date / Time Penicillins Allergy Intermediate DIZZINESS, Verified 01/30/23 15:17 RASH tramadol [TRAMADOL] Allergy Intermediate NAUSEA & Verified 01/30/23 15:17 VOMITING egg [Egg] AdvReac Intermediate NAUSEA & Verified 01/30/23 15:17 VOMITING morphine AdvReac Intermediate Chest Pain Verified 01/30/23 15:17 oxycodone AdvReac Dizziness Verified 01/30/23 15:17 FANY DRINK Allergy Intermediate NAUSEA & Uncoded 01/30/23 15:17 VOMITING PMFSH Past Medical History Medical History Abdominal pain Asthma Back pain Depression with anxiety Diabetes mellitus Essential hypertension Exposure to COVID-19 virus Fibroids Hiatal hernia Left ankle pain Left knee pain Mild depression Polyarthralgia Pure hypercholesterolemia Right shoulder pain TIA (transient ischemic attack) Vaginal pruritus Vitamin D deficiency Surgical History History of appendectomy History of cholecystectomy History of colonoscopy History of cyst of breast History of exploratory laparotomy History of hemicolectomy History of tooth extraction Family History Family History Father No problems noted. Mother Hypertension Stroke Diabetes Brother Leptospirosis Brother No problems noted. Family/Other FH: mental illness Social History Social History Housing: Apartment Alcohol intake: never Patient Tobacco Use Status: Never used Tobacco Smoked in Last 30 Days: No e-Cigarette/Vaping Use: Never Used Second Hand Smoke Exposure: No Use of substances other than those prescribed or required for medical reasons: No Advance Directives: No Advance Directives Information Provided: Yes service: No Current occupational status: unemployed Sexual orientation: Straight/Heterosexual Gender identity: Female Cognitive needs: Yes Hearing needs: No Vision needs: Yes Physical Exam Vital Signs: Vital Signs: Last Vital Signs Temp 97.6 F 01/31/23 06:25 Pulse 55 01/31/23 06:25 Resp 16 01/31/23 06:25 BP 157/61 H 01/31/23 06:25 Pulse Ox 98 01/31/23 06:25 O2 Del Method Room Air 01/31/23 06:25 BMI result Body Mass Index 33.6 Medications Administered Discontinued Medications Generic Name Dose Route Start Last Admin Trade Name Freq PRN Reason Stop Dose Admin Amlodipine Besylate 5 mg 01/31/23 04:06 01/31/23 04:25 Amlodipine Besylate 5 Mg Tablet PO 01/31/23 04:07 5 mg ONCE ONE Administration Protocol Iohexol 75 ml 01/31/23 06:10 01/31/23 06:11 Iohexol 350 Mg/Ml 100 Ml Infus..Btl IV 01/31/23 06:11 75 ml ONCE ONE Administration Ketorolac Tromethamine 30 mg 01/31/23 04:06 01/31/23 04:25 Ketorolac Tromethamine 30 Mg/Ml Vial IVPUSH 01/31/23 04:07 30 mg ONCE ONE Administration Medical Decision Making Medical Decision Making MDM Narrative: Patient with right thoracic pain likely pleurisy CTA negative for PE will discharge patient home Differential Diagnosis Acute PE/CHF/pneumonia/pneumothorax/muscular pain Lab Data MDM Lab Attestation statement: I reviewed the patient's lab results. 01/31/23 03:05 01/31/23 03:05 Labs: Lab Results 01/31/23 01/31/23 01/31/23 Range/Units 03:05 03:05 03:29 WBC 8.8 (4.8-10.8) X10*3/uL RBC 4.05 L (4.20-5.50) X10*6/uL Hgb 11.8 L (12.0-16.0) g/dl Hct 36.0 L (37.0-47.0) % MCV 88.9 (80.0-98.0) fL MCH 29.1 (27.0-33.0) pg MCHC 32.8 (31.0-35.0) g/dl RDW 13.0 (11.0-16.0) % Plt Count 277 (160-400) X10*3/uL MPV 10.9 (9.4-12.3) fL Immature Gran % (Auto) 0.2 (0.0-0.4) % Neut % (Auto) 57.7 (45-73) % Lymph % (Auto) 30.1 (20-40) % Rowan % (Auto) 8.5 (2-11) % Eos % (Auto) 2.7 (0-4) % Baso % (Auto) 0.8 (0-2) % Lymph # (Auto) 2.7 (1.2-4.9) X10*3/uL Rowan # (Auto) 0.8 (0.1-1.2) X10*3/uL Eos # (Auto) 0.2 (0.0-0.4) X10*3/uL Baso # (Auto) 0.1 (0.0-0.2) X10*3/uL Abs Immat Gran (auto) 0.02 (0.00-0.03) X10*3/uL Absolute Neuts (auto) 5.1 (2.0-8.3) x10*3/uL Absolute Nucleated RBC 0.000 (0.0-0.012) X10*3/uL Nucleated RBC % (auto) 0.0 (0.0-0.2) /100WBC D-Dimer High Sensitivty NG/ML Sodium 141 (135-145) mmol/L Potassium 4.0 (3.3-5.1) mmol/L Chloride 107 (96-108) mmol/L Carbon Dioxide 26 (22-29) mmol/L Anion Gap 12 (12-20) BUN 12 (9-16) mg/dL Creatinine 0.85 (0.5-1.4) mg/dL Estim Creat Clear Calc 60.1 Estimated GFR > 60 Random Glucose 171 H (60-115) mg/dL Calcium 8.8 D (8.4-10.2) mg/dL Troponin I High Sens 3.9 (<3.5-17.0) ng/L 01/31/23 Range/Units 04:22 WBC (4.8-10.8) X10*3/uL RBC (4.20-5.50) X10*6/uL Hgb (12.0-16.0) g/dl Hct (37.0-47.0) % MCV (80.0-98.0) fL MCH (27.0-33.0) pg MCHC (31.0-35.0) g/dl RDW (11.0-16.0) % Plt Count (160-400) X10*3/uL MPV (9.4-12.3) fL Immature Gran % (Auto) (0.0-0.4) % Neut % (Auto) (45-73) % Lymph % (Auto) (20-40) % Rowan % (Auto) (2-11) % Eos % (Auto) (0-4) % Baso % (Auto) (0-2) % Lymph # (Auto) (1.2-4.9) X10*3/uL Rowan # (Auto) (0.1-1.2) X10*3/uL Eos # (Auto) (0.0-0.4) X10*3/uL Baso # (Auto) (0.0-0.2) X10*3/uL Abs Immat Gran (auto) (0.00-0.03) X10*3/uL Absolute Neuts (auto) (2.0-8.3) x10*3/uL Absolute Nucleated RBC (0.0-0.012) X10*3/uL Nucleated RBC % (auto) (0.0-0.2) /100WBC D-Dimer High Sensitivty 352 NG/ML Sodium (135-145) mmol/L Potassium (3.3-5.1) mmol/L Chloride (96-108) mmol/L Carbon Dioxide (22-29) mmol/L Anion Gap (12-20) BUN (9-16) mg/dL Creatinine (0.5-1.4) mg/dL Estim Creat Clear Calc Estimated GFR Random Glucose (60-115) mg/dL Calcium (8.4-10.2) mg/dL Troponin I High Sens (<3.5-17.0) ng/L Independent Interpretation I performed an independent interpretation of an: EKG Interpretation: Normal sinus rhythm heart rate 63 beats per minute, LVH no acute ST T wave change no acute ischemia Discharge Plan Discharge Clinical Impression: Pleurisy, Musculoskeletal back pain Patient Disposition: Home, Self-Care Instructions: Pleurisy (ED), Thoracic Pain (ED) Additional Instructions: Your pain in the back is likely musculoskeletal/inflammation of the lung lining Ibuprofen for pain Your blood pressure was slightly elevated likely from the pain Follow with PCP If Blood pressure higher than 160/90 increase the dose of amlodipine to 10 mg daily Es probable que sullivan dolor en la espalda sea musculoesquel?rossi/inflamaci?n del revestimiento del pulm?n ibuprofeno para el dolor Sullivan presi?n arterial estaba ligeramente elevada probablemente por el dolor Seguir con PCP Si la presi?n arterial es superior a 160/90, aumente la dosis de amlodipino a 10 mg al d?a. Prescriptions: New ibuprofen 600 mg tablet 600 mg PO Q6H PRN (Reason: fever or pain) Qty: 30 0RF No Action (DME) AeroEclipse II Nebulizer Misc See Rx Instructions .ROUTE .MEDSUPPLY Qty: 1 0RF Rx Instructions: As directed gabapentin 100 mg capsule 100 mg PO BEDTIME 30 Days Qty: 30 6RF (DME) walker Misc See Rx Instructions .ROUTE .MEDSUPPLY Qty: 1 0RF Rx Instructions: As Directed clotrimazole-betamethasone 1-0.05 % cream 1 appl topical BID PRN (Reason: itching) 7 Days Qty: 45 0RF buspirone 10 mg tablet 10 mg PO BID 90 Days Qty: 180 1RF aspirin 81 mg tablet,delayed release (DR/EC) 81 mg PO DAILY 90 Days Qty: 90 3RF albuterol sulfate 2.5 mg /3 mL (0.083 %) solution for nebulization 2.5 mg inhalation Q4-6H PRN (Reason: shortness of breath or wheezing) 30 Days Qty: 75 2RF amlodipine 5 mg tablet 5 mg PO DAILY Qty: 30 6RF atorvastatin 20 mg tablet 20 mg PO BEDTIME 90 Days Qty: 90 1RF calcium carbonate-vitamin D3 [Oyster Shell Calcium-Vit D3] 500 mg-10 mcg (400 unit) tablet 1 tab PO DAILY 90 Days Qty: 90 2RF atenolol 50 mg tablet 50 mg PO DAILY 90 Days Qty: 90 2RF levofloxacin 500 mg tablet 500 mg PO DAILY Qty: 9 0RF phenazopyridine 100 mg tablet 100 mg PO TID PRN (Reason: pain) Qty: 6 0RF codeine-guaifenesin [Guaifenesin AC] 10-100 mg/5 mL liquid 5 ml PO Q6H PRN (Reason: cold symptoms) Qty: 120 0RF benzonatate 100 mg capsule 100 mg PO TID PRN (Reason: cough) Qty: 14 0RF fluticasone propionate [Flonase Allergy Relief] 50 mcg/actuation spray,suspension 2 spray intranasal DAILY Qty: 16 0RF Rx Instructions: administer into each nostril albuterol sulfate 90 mcg/actuation HFA aerosol inhaler 2 puff inhalation Q4-6H PRN (Reason: shortness of breath or wheezing) Qty: 6.7 0RF alcohol swabs Pads, Medicated topical citalopram 20 mg tablet PO ibuprofen 800 mg tablet 800 mg PO Q8H PRN (Reason: pain) 7 Days Qty: 21 0RF acetaminophen [Tylenol Arthritis Pain] 650 mg tablet extended release 650 mg PO Q8H PRN (Reason: pain) Qty: 90 4RF omeprazole 20 mg capsule,delayed release(DR/EC) 20 mg PO DAILY Qty: 90 3RF docusate sodium 100 mg capsule 100 mg PO BEDTIME Qty: 90 3RF polyethylene glycol 3350 [Miralax] 17 gram/dose powder 17 g PO DAILY Qty: 510 2RF
--- NOTE | 2023-01-31 03:38 | PC.NURSE ---
Pt was able to ambulate to the bathroom by herself. Pt is steady on her feet with equal and balanced gait.
[2023-01-31 03:49] LABS: Anion Gap 12 (12-20); Blood Urea Nitrogen 12 mg/dL (9-16); Calcium 8.8 mg/dL (8.4-10.2); Carbon Dioxide 26 mmol/L (22-29); Chloride 107 mmol/L (96-108); Creatinine Clr Calc Pharmacy 60.1; Estimated Glomerular Filt Rate > 60; Glucose Random 171 mg/dL (60-115); Sodium 141 mmol/L (135-145)
[2023-01-31] MEDS: Ketorolac Tromethamine 30 MG/ML VIAL IVPUSH (04:25)
[2023-01-31] MEDS: amLODIPine Besylate 5 MG TABLET PO (04:25)
[2023-01-31 04:47] LABS: D Dimer High Sensitivity 352 NG/ML
[2023-01-31] MEDS: iohexoL 350 MG/ML 100 ML INFUS..BTL 75 ML IV (06:11)
[2023-01-31 06:25] VITALS: BP 157/61; PULSE 55; RESP 16; TEMP 36.4; O2SAT 98
== END 2023-01-31 07:31 | disposition home or self-care (01) ==
PROVIDERS: Emergency Provider Internal Medicine; PCP Internal Medicine
DX: R09.1 Pleurisy (principal); M79.18 Myalgia, other site; M54.6 Pain in thoracic spine; Z79.82 Long term (current) use of aspirin; Z79.899 Other long term (current) drug therapy
CPT/HCPCS: 36415; 71045; 71275; 80048; 84484; 85025; 85379; 93005; 96374; 99284; 99285; J1885; Q9967

== ENCOUNTER → 2023-02-13 11:16 | Outpatient (BNVA) | payer OTHER, SELFPAY | PROVIDERS: PCP Internal Medicine; Visit Provider Nurse Practitioner Family | DX: K21.9 Gastro-esophageal reflux disease without esophagitis (principal); K58.1 Irritable bowel syndrome with constipation; K59.01 Slow transit constipation | CPT/HCPCS: 99212 ==

== ENCOUNTER 2023-03-23 08:59 | Outpatient (REF) | payer OTHER, SELFPAY ==
[2023-03-23 09:11] LABS: MANUAL DIFF FLAG NO
[2023-03-23 09:35] LABS: Basophils Absolute Auto 0.1 X10*3/uL (0.0-0.2); Basophils Percent Auto 0.7 % (0-2); Eosinophils Absolute Auto 0.2 X10*3/uL (0.0-0.4); Eosinophils Percent Auto 2.7 % (0-4); Hematocrit 38.4 % (37.0-47.0); Hemoglobin 12.3 g/dl (12.0-16.0); Imm Gran Abs Auto 0.02 X10*3/uL (0.00-0.03); Imm Gran Pct Auto 0.2 % (0.0-0.4); Lymphocytes Absolute Auto 2.4 X10*3/uL (1.2-4.9); Lymphocytes Percent Auto 29.4 % (20-40); Mean Corpuscular Hemoglobin 29.4 pg (27.0-33.0); Mean Corpuscular Volume 91.6 fL (80.0-98.0); Mean Platelet Volume 11.7 fL (9.4-12.3); Monocytes Absolute Auto 0.6 X10*3/uL (0.1-1.2); Monocytes Percent Auto 7.6 % (2-11); Neutrophils Absolute Auto 4.9 x10*3/uL (2.0-8.3); Neutrophils Percent Auto 59.4 % (45-73); Platelet Count 260 X10*3/uL (160-400); Red Blood Count 4.19 X10*6/uL (4.20-5.50); Red Cell Distribution Width 12.9 % (11.0-16.0); White Blood Count 8.3 X10*3/uL (4.8-10.8)
[2023-03-23 10:12] LABS: Estimated Average Glucose 157 mg/dL; Hemoglobin A1c % 7.1 %
[2023-03-23 10:17] LABS: Alanine Aminotransferase 21 U/L (0-31); Albumin Level 3.9 g/dL (3.5-5.0); Alkaline Phosphatase 149 U/L (39-117); Anion Gap 12 (12-20); Aspartate Amino Transferase 20 U/L (5-31); Bilirubin Total 0.6 mg/dL (0.0-1.0); Blood Urea Nitrogen 13 mg/dL (9-16); Calcium 9.2 mg/dL (8.4-10.2); Carbon Dioxide 29 mmol/L (22-29); Chloride 107 mmol/L (96-108); Cholesterol 95 mg/dL; Estimated Glomerular Filt Rate > 60; Glucose Fasting 153 mg/dL (60-99); HDL Cholesterol 33 mg/dL; Iron 62 mcg/dL (30-160); LDL Cholesterol Calculated 45 mg/dl; Percent Iron Saturation 22 % (15-50); Potassium 4.7 mmol/L (3.3-5.1); Sodium 143 mmol/L (135-145); Total Iron Binding Capacity 277 mcg/dL (228-428); Total Protein 6.9 g/dL (6.5-8.0); Triglycerides 89 mg/dL; Unsaturated Iron Binding 215 ug/dL
== END 2023-03-23 09:00 | disposition home or self-care (01) ==
LOC: HO.LAB 08:59
PROVIDERS: PCP Internal Medicine; Visit Provider Internal Medicine
DX: E11.40 Type 2 diabetes mellitus with diabetic neuropathy, unspecified (principal); I10 Essential (primary) hypertension; D64.9 Anemia, unspecified; E78.5 Hyperlipidemia, unspecified
CPT/HCPCS: 36415; 80053; 80061; 83036; 83540; 85025

== ENCOUNTER 2023-04-01 18:19 | Emergency (ER) | payer OTHER, SELFPAY ==
[2023-04-01 18:28] VITALS: BP 153/72; PULSE 55; RESP 18; TEMP 37.2; O2SAT 99; BMI 31.8
--- NOTE | 2023-04-01 18:31 | ED_ITS ---
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 She states that she has been sleeping all day. She denies chest pain, SOB, abdominal pain, nausea and vomiting. She states that she had burning with urination and darkening urine that started yesterday. No fever or chills. No body aches, joint pain, or muscle aches. No focal weakness, numbness or tingling. MD complaint: fatigue Onset (ago): hour(s) Radiation: non-radiation Severity: moderate Pain Consistency: constant Relieving factors: none Exacerbating factors: none Associated symptoms: other (dysuria) Treatments prior to arrival: none Related Data Home Medications Medication Instructions Recorded Confirmed alcohol swabs pad topical 09/11/20 02/11/23 citalopram 20 mg tablet mg PO 09/11/20 02/11/23 Previous Rx's Medication Instructions Recorded acetaminophen 650 mg 650 mg PO Q8H PRN pain #90 tabs 10/23/20 tablet,extended release (Tylenol Arthritis Pain) nebulizers (AeroEclipse II #1 ea 04/01/21 Nebulizer) gabapentin 100 mg capsule 100 mg PO BEDTIME 30 days #30 caps 09/06/21 walker #1 ea 11/08/21 clotrimazole-betamethasone 1 1 appl topical BID PRN itching 7 03/12/22 %-0.05 % topical cream days #45 grams buspirone 10 mg tablet 10 mg PO BID 90 days #180 tabs 09/09/22 aspirin 81 mg tablet,delayed 81 mg PO DAILY 90 days #90 tabs 09/24/22 release albuterol sulfate 90 mcg/actuation 2 puff inhalation Q4-6H PRN 12/04/22 aerosol inhaler shortness of breath or wheezing #6.7 grams fluticasone propionate 50 2 spray intranasal DAILY #16 grams 12/04/22 mcg/actuation nasal spray,suspension (Flonase Allergy Relief) docusate sodium 100 mg capsule 100 mg PO BEDTIME #90 caps 01/27/23 omeprazole 20 mg capsule,delayed 20 mg PO DAILY #90 caps 01/27/23 release polyethylene glycol 3350 17 17 g PO DAILY #510 grams 01/27/23 gram/dose oral powder (Miralax) albuterol sulfate 2.5 mg/3 mL 2.5 mg (3 mL) inhalation Q4-6H PRN 01/29/23 (0.083 %) solution for nebulization shortness of breath or wheezing 30 days #75 mL amlodipine 5 mg tablet 5 mg PO DAILY #30 tabs 01/29/23 atorvastatin 20 mg tablet 20 mg PO BEDTIME 90 days #90 tabs 01/29/23 calcium carbonate 500 mg-vitamin 1 tab PO DAILY 90 days #90 tabs 01/29/23 D3 10 mcg (400 unit) tablet (Oyster Shell Calcium-Vitamin D3) atenolol 50 mg tablet 50 mg PO DAILY 90 days #90 tabs 01/30/23 ibuprofen 600 mg tablet 600 mg PO Q6H PRN fever or pain 01/31/23 #30 tabs cefuroxime axetil 250 mg tablet 250 mg PO BID 7 days #14 tabs 04/01/23 Allergies Allergy/AdvReac Type Severity Reaction Status Date / Time Penicillins Allergy Intermediate DIZZINESS, Verified 02/13/23 11:31 RASH tramadol [TRAMADOL] Allergy Intermediate NAUSEA & Verified 02/13/23 11:31 VOMITING egg [Egg] AdvReac Intermediate NAUSEA & Verified 02/13/23 11:31 VOMITING morphine AdvReac Intermediate Chest Pain Verified 02/13/23 11:31 oxycodone AdvReac Dizziness Verified 02/13/23 11:31 FANY DRINK Allergy Intermediate NAUSEA & Uncoded 02/13/23 11:31 VOMITING Review of Systems Review of Systems: Yes all other systems are reviewed and are negative PMFSH Past Medical History Medical History Abdominal pain Asthma Back pain Depression with anxiety Essential hypertension Exposure to COVID-19 virus Fibroids Hiatal hernia Left ankle pain Left knee pain Mild depression Polyarthralgia Pure hypercholesterolemia Right shoulder pain TIA (transient ischemic attack) Vaginal pruritus Vitamin D deficiency Surgical History History of appendectomy History of cholecystectomy History of colonoscopy History of cyst of breast History of exploratory laparotomy History of hemicolectomy History of tooth extraction Family History Family History Father No problems noted. Mother Hypertension Stroke Diabetes Brother Leptospirosis Brother No problems noted. Family/Other FH: mental illness Social History Social History Housing: Apartment Alcohol intake: never Patient Tobacco Use Status: Never used Tobacco e-Cigarette/Vaping Use: Never Used Second Hand Smoke Exposure: No Advance Directives: No Advance Directives Information Provided: No service: No Current occupational status: unemployed Sexual orientation: Straight/Heterosexual Gender identity: Female Cognitive needs: Yes Hearing needs: No Vision needs: Yes Physical Exam ED Vital Signs: Vital Signs - 24 hr 04/01/23 18:28 04/01/23 18:54 Temperature 98.9 F 98.2 F Pulse Rate 55 50 Respiratory Rate 18 16 Blood Pressure 153/72 H 153/71 H Pulse Oximetry 99 98 Oxygen Delivery Method Room Air Room Air BMI result Body Mass Index 31.8 Appearance: Alert. Oriented X3. No acute distress. HEENT: normal inspection CVS: Normal heart rate and rhythm. Pulses normal. Respiratory: No respiratory distress. Abd: soft, NT/ND, +BS Skin: Skin warm and dry. Normal skin color. Normal skin turgor. No rashes. Extremities: normal inspection x4, no joint swelling, no LE edema Neuro: Oriented X 3. Grossly normal, nonfocal, steady gait Medical Decision Making Medical Decision Making [facility] Narrative: 67 yo female presents to the ER for evaluation of fatigue and dysuria. VSS. HR high 50s, regular rhythm. reviewed old EKGs and baseline HR low 60s. low suspicion for cardiac arrythmia or heart block. Exam unremarkable. UA + for infection. will treat with ceftin. not septic. stable for d/c home Differential Diagnosis Differential Diagnoses: The differential diagnosis associated with the presentation includes viral syndrome, UTI, hypoglycemia, dehydration, mononucleosis, less likely CVA, central process Lab Data [facility] Lab Attestation statement: I reviewed the patient's lab results. UA c/w infection Labs: Lab Results 04/01/23 Range/Units 18:50 Urine Color Yellow Urine Appearance Clear Urine pH 7.0 (5.0-9.0) Ur Specific [place] 1.015 (1.005-1.025) Urine Protein Negative (Neg-Trace) mg/dL Urine Glucose (UA) Negative (Negative) mg/dL Urine Ketones Negative (Negative) mg/dL Urine Blood Negative (Negative) Urine Nitrite Negative (Negative) Ur Leukocyte Esterase Small (1+) H (Negative) Urine RBC 3-5 H (0-2) /HPF Urine WBC 6-10 H (0-5) /HPF Ur Squamous Epith Cells 0-2 (0-2) /HPF Urine Bacteria None Seen (None Seen) Hyaline Casts 0-2 (0-2) /LPF External Record Review External record reviewed: Outpatient record and Prior outpatient labs Prescription Management I considered prescription management with: Antibiotic Chronic Conditions Patient?s care impacted by: Hypertension Critical Care Time Critical Care Time Critical Care Time: No Discharge Plan Discharge Clinical Impression: Acute UTI Patient Disposition: Home, Self-Care Instructions: Urinary Tract Infection in Women (DC) Additional Instructions: take the prescribed antibiotic for UTI drink plenty of water follow up with your doctor as needed If you develop new or worsening symptoms call 911 or come back to the ER for further evaluation. bj el antibi?rossi recetado para la UTI beber abundante agua seguimiento con sullivan m?dico seg?n sea necesario Si desarrolla s?ntomas nuevos o que empeoran, llame al 911 o regrese a la adán de emergencias para whitley evaluaci?n adicional. Prescriptions: New cefuroxime axetil 250 mg tablet 250 mg PO BID 7 Days Qty: 14 0RF No Action (DME) AeroEclipse II Nebulizer Misc See Rx Instructions .ROUTE .MEDSUPPLY Qty: 1 0RF Rx Instructions: As directed gabapentin 100 mg capsule 100 mg PO BEDTIME 30 Days Qty: 30 6RF (DME) walker Misc See Rx Instructions .ROUTE .MEDSUPPLY Qty: 1 0RF Rx Instructions: As Directed clotrimazole-betamethasone 1-0.05 % cream 1 appl topical BID PRN (Reason: itching) 7 Days Qty: 45 0RF buspirone 10 mg tablet 10 mg PO BID 90 Days Qty: 180 1RF aspirin 81 mg tablet,delayed release (DR/EC) 81 mg PO DAILY 90 Days Qty: 90 3RF albuterol sulfate 2.5 mg /3 mL (0.083 %) solution for nebulization 2.5 mg inhalation Q4-6H PRN (Reason: shortness of breath or wheezing) 30 Days Qty: 75 2RF amlodipine 5 mg tablet 5 mg PO DAILY Qty: 30 6RF atorvastatin 20 mg tablet 20 mg PO BEDTIME 90 Days Qty: 90 1RF calcium carbonate-vitamin D3 [Oyster Shell Calcium-Vit D3] 500 mg-10 mcg (400 unit) tablet 1 tab PO DAILY 90 Days Qty: 90 2RF atenolol 50 mg tablet 50 mg PO DAILY 90 Days Qty: 90 2RF fluticasone propionate [Flonase Allergy Relief] 50 mcg/actuation spray,suspension 2 spray intranasal DAILY Qty: 16 0RF Rx Instructions: administer into each nostril albuterol sulfate 90 mcg/actuation HFA aerosol inhaler 2 puff inhalation Q4-6H PRN (Reason: shortness of breath or wheezing) Qty: 6.7 0RF ibuprofen 600 mg tablet 600 mg PO Q6H PRN (Reason: fever or pain) Qty: 30 0RF alcohol swabs Pads, Medicated topical citalopram 20 mg tablet PO acetaminophen [Tylenol Arthritis Pain] 650 mg tablet extended release 650 mg PO Q8H PRN (Reason: pain) Qty: 90 4RF omeprazole 20 mg capsule,delayed release(DR/EC) 20 mg PO DAILY Qty: 90 3RF docusate sodium 100 mg capsule 100 mg PO BEDTIME Qty: 90 3RF polyethylene glycol 3350 [Miralax] 17 gram/dose powder 17 g PO DAILY Qty: 510 2RF Referrals: Aure Barrett MD [Primary Care Provider] - Interventions: ED Discharge Assessment Last Done: 04/01/23 19:25 Discharge Date/Time: 04/01/23 19:26
[2023-04-01 18:54] VITALS: BP 153/71; PULSE 50; RESP 16; TEMP 36.8; O2SAT 98
[2023-04-01 18:59] LABS: Appearance Urine Clear; Color Urine Yellow; Glucose Urine UA Negative (Negative); Leukocyte Esterase Urine Small (1+) (Negative); Nitrite Urine Negative (Negative); Specific Gravity - Urine 1.015 (1.005-1.025); UMIC TRIGGER UACC YES; Urine Blood Negative (Negative); Urine Ketones Negative (Negative); Urine Protein Negative (Neg-Trace)
[2023-04-01 19:03] LABS: Bacteria Urine None Seen (None Seen); Hyaline Casts Urine 0-2 /LPF (0-2); Squamous Epithelial Cell Urine 0-2 /HPF (0-2); UACC Culture Trigger YES
== END 2023-04-01 19:26 | disposition home or self-care (01) ==
PROVIDERS: Physician Assistant; Emergency Provider Emergency Medicine; PCP Internal Medicine
DX: N39.0 Urinary tract infection, site not specified (principal); R53.83 Other fatigue; R30.0 Dysuria
CPT/HCPCS: 81001; 87086; 99283

== ENCOUNTER 2023-05-11 10:52 | Outpatient (AMB) | payer OTHER, SELFPAY ==
[2023-05-11 11:08] VITALS: BP 119/56; PULSE 56; BMI 31.5
--- NOTE | 2023-05-11 11:08 | MHC.OFFVIS ---
Intake Vital Signs 05/11/23 11:08 Height 5 ft 2 in Weight 172 lb 6.424 oz BMI 31.5 BP 119/56 L Blood Pressure Location Lt brachial Position Sitting Pulse 56 Intake Visit Reasons: 3 month fu Intake Note: Ximena presents in office as a est.patient for a 3month f/u PT CC: pt reports having no concerns pt denies any other GI Issues Pals Nurse Required: Yes Pals Nurse Language: [place] Citizen Accompanied by: Self / Same As Patient Allergies Penicillins Allergy (Intermediate, Verified 05/11/23 11:09) DIZZINESS, RASH tramadol [TRAMADOL] Allergy (Intermediate, Verified 05/11/23 11:09) NAUSEA & VOMITING egg [Egg] Adverse Reaction (Intermediate, Verified 05/11/23 11:09) NAUSEA & VOMITING morphine Adverse Reaction (Intermediate, Verified 05/11/23 11:09) Chest Pain oxycodone Adverse Reaction (Verified 05/11/23 11:09) Dizziness FANY DRINK Allergy (Intermediate, Uncoded 05/11/23 11:09) NAUSEA & VOMITING HPI 3 month fu HPI Details LAST VISIT: GERD (gastroesophageal reflux disease) Continue current dose of omeprazole. Patient was encouraged also to avoid dietary triggers and late night snacking. Staying upright for minimum 3 hours after meals discussed with patient. Patient was also encouraged to lose weight that could also help with symptoms IBS (irritable bowel syndrome) Patient reports that she is feeling better now that she is moving her bowels. Patient does however states that occasionally she might have postprandial abdominal bloating. Otherwise patient states that she has been feeling fine. Continue low FODMAP diet. Food recommended as well as food to avoid discussed with patient. Constipation Continue taking Colace and MiraLax. Patient was also encouraged to increase fluid intake and activity to promote better bowel motility I will see patient in 3 months, sooner on as needed basis. Patient is agreeable to this plan and verbalizes understanding of instructions. She was given the opportunity to ask questions and all questions answered. TODAY'S VISIT Patient is here today for follow-up. Patient reports a since the last time I have seen her she has been doing much better. Patient states that omeprazole has been working I and she no longer has epigastric discomfort or acid reflux. Patient denies dyspepsia, dysphagia or odynophagia. Reports that she takes MiraLax in the morning and Colace at night time and she is moving her bowels better. Patient denies any abdominal pain. Denies any abdominal bloating. Denies melena, hematochezia, unintentional weight loss or ribbon like stools. Patient had colonoscopy last year in June in is due to repeat colonoscopy in June of 2025, sooner if clinically necessary. Patient denies any GI concerning symptoms today. ? [facility], LAT[facility] Medical History Abdominal pain Asthma Back pain Depression with anxiety Essential hypertension Exposure to COVID-19 virus Fibroids Hiatal hernia Left ankle pain Left knee pain Mild depression Polyarthralgia Pure hypercholesterolemia Right shoulder pain TIA (transient ischemic attack) Vaginal pruritus Vitamin D deficiency Surgical History History of appendectomy History of cholecystectomy History of colonoscopy History of cyst of breast History of exploratory laparotomy History of hemicolectomy History of tooth extraction Family History Father No problems noted. Mother Hypertension Stroke Diabetes Brother Leptospirosis Brother No problems noted. Family/Other FH: mental illness Social History Housing: Apartment Alcohol intake: never Patient Tobacco Use Status: Never used Tobacco e-Cigarette/Vaping Use: Never Used Second Hand Smoke Exposure: No service: No Current occupational status: unemployed Sexual orientation: Straight/Heterosexual Gender identity: Female Cognitive needs: Yes Hearing needs: No Vision needs: Yes Review of Systems Const Denies weight gain and Denies weight loss ENT Reports no additional complaints, Denies dysphagia and Denies odynophagia Card Reports no additional complaints Resp Reports no additional complaints GI Denies abdominal pain, Denies belching, Denies melena, Denies bloating, Denies change in bowel habits, Denies dysphagia, Denies excessive flatus, Denies dyspepsia, Denies heartburn, Denies diarrhea, Denies loose stools, Denies nausea, Denies odynophagia and Denies vomiting Musc Reports no additional complaints Neuro Reports no additional complaints Psych Reports no additional complaints Endo Reports no additional complaints Physical Exam Vital Signs: Last Vital Signs Pulse 56 05/11/23 11:08 BP 119/56 L 05/11/23 11:08 BMI result Body Mass Index 31.5 Const General: healthy appearing, no acute distress and well developed Nutritional Appearance: obese Orientation/consciousness: patient oriented x3 HEENT Head: Yes normal to inspection, Yes normocephalic and Yes atraumatic Face and sinus: Yes normal facial exam Mouth: Normal oral and palatal mucosa present Throat: Yes posterior oropharynx normal, Yes tonsils normal and Yes uvula midline Eyes General: appearance normal, both eyes and all related structures Neck Neck: Yes normal visual inspection, Yes full ROM and Yes trachea midline Thyroid: Thyroid normal Resp Effort & Inspection: normal respiratory effort, able to speak in complete sentences, no tracheal deviation and symmetric chest movement Auscultation: clear to auscultation bilaterally Cardio Rate: regular rate Heart sounds: S1 normal heart sound present and S2 normal heart sound present GI Inspection: Yes normal to inspection, No distended and Yes obesity Palpation (GI): Soft to palpation, not firm, nontender and No hepatosplenomegaly present Auscultation: normal bowel sounds General: Yes no CVA tenderness Back/Spine/Pelvis Back: no CVA tenderness Skin General skin exam: elasticity normal, turgor normal and dry skin Neuro General: patient oriented x3 Psych Appearance: grossly normal Mental Status: mental status grossly normal Speech and movement: Normal speech and movement present Affect: normal affect Assessment & Plan Assessment & Plan (1) GERD (gastroesophageal reflux disease): Code(s): K21.9 - Gastro-esophageal reflux disease without esophagitis Qualifiers: Esophagitis presence: without esophagitis Qualified Code(s): K21.9 - Gastro-esophageal reflux disease without esophagitis Plan: Continue omeprazole. Discussed with patient avoiding dietary triggers and late night snacking. Staying upright for minimum 3 hours after meals discussed with patient. (2) IBS (irritable bowel syndrome): Code(s): K58.9 - Irritable bowel syndrome without diarrhea Qualifiers: Irritable bowel syndrome type: with constipation Qualified Code(s): K58.1 - Irritable bowel syndrome with constipation Plan: Continue low FODMAP diet. Continue avoiding dietary triggers. (3) Constipation: Code(s): K59.00 - Constipation, unspecified Plan: Continue MiraLax and Colace. Patient is moving her bowels better now. Patient was encouraged to increase fluid intake and activity to promote better bowel motility. I will see patient in 6 months, sooner on as needed basis. Patient is agreeable to this plan and verbalizes understanding of instructions. She was given the opportunity to ask questions and all questions answered. Thank you for allowing me to participate in her care Coding Level of Care Code Est Pt Level 3 (32457) Diagnoses GERD (gastroesophageal reflux disease) K21.9 Esophagitis presence: without esophagitis IBS (irritable bowel syndrome) K58.1 Irritable bowel syndrome type: with constipation Constipation K59.00 Time Spent (min) 25 Comment 15 minutes spent with patient and additional 10 minutes spent reviewing her records
== END 2023-05-11 11:26 | disposition home or self-care (01) ==
PROVIDERS: Visit Provider Nurse Practitioner Family
DX: K21.9 Gastro-esophageal reflux disease without esophagitis (principal); K58.1 Irritable bowel syndrome with constipation; K59.00 Constipation, unspecified
CPT/HCPCS: 99213

== ENCOUNTER → 2023-05-11 10:52 | Outpatient (BNVA) | payer OTHER, SELFPAY | PROVIDERS: Visit Provider Nurse Practitioner Family | DX: K21.9 Gastro-esophageal reflux disease without esophagitis (principal); K58.1 Irritable bowel syndrome with constipation; K59.00 Constipation, unspecified | CPT/HCPCS: 99212 ==

== ENCOUNTER 2023-06-10 14:29 | Outpatient (REF) | payer OTHER, SELFPAY | END 2023-06-10 14:30 | disposition home or self-care (01) | LOC: HO.LAB 14:29 | PROVIDERS: PCP Internal Medicine; Visit Provider Advanced Practice Midwife | DX: Z01.419 Encounter for gynecological examination (general) (routine) without abnormal findings (principal); D25.9 Leiomyoma of uterus, unspecified; R10.2 Pelvic and perineal pain; R30.0 Dysuria | CPT/HCPCS: 81003 ==

== ENCOUNTER 2023-06-10 14:29 | Outpatient (AMB) | payer OTHER, SELFPAY ==
--- NOTE | 2023-06-10 14:34 | A.OFFVIS_ITS ---
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 Scribed for VARSHA Moreno by Amira Sweet, medical and health services manager, on 06/10/2023 at 3:00 pm EST. Intermediate Manager Required: Yes Intermediate Manager Language: Sail Repairer Name: Iraida HERNANDEZ Information Interpreted: non-clinical & clinical An Employee Sponsor Or Advocate And: An Employee Sponsor Or Advocate And Present (Iraida HERNANDEZ) Accompanied by: Self / Same As Patient Allergies Penicillins Allergy (Intermediate, Verified 06/10/23 14:38) DIZZINESS, RASH tramadol [TRAMADOL] Allergy (Intermediate, Verified 06/10/23 14:38) NAUSEA & VOMITING egg [Egg] Adverse Reaction (Intermediate, Verified 06/10/23 14:38) NAUSEA & VOMITING morphine Adverse Reaction (Intermediate, Verified 06/10/23 14:38) Chest Pain oxycodone Adverse Reaction (Verified 06/10/23 14:38) Dizziness FANY DRINK Allergy (Intermediate, Uncoded 06/10/23 14:38) NAUSEA & VOMITING Post menopausal: Yes HPI HPI Comments History of Present Illness Details She is a postmenopausal woman presenting for annual exam. Complains of burning with urination and pelvic pain. Hx of fibroids. Patient admits she tries to eat a healthy diet including Vitamin D. Reports she is scared to take Calcium because she believes Calcium makes her bones bad. Denies vaginal itching and irritation. Denies family hx of breast, colon and ovarian cancer. Last pap smear 04/30/21. Last mammogram 05/21/20. UTD on colonoscopy. [facility] Medical History (Updated 06/10/23 @ 15:14 by Amira Sweet) Abdominal pain Asthma Back pain Burning with urination Depression with anxiety Dysuria Essential hypertension Exposure to COVID-19 virus Fibroids Hiatal hernia Left ankle pain Left knee pain Mild depression Pelvic pain Polyarthralgia Pure hypercholesterolemia Right shoulder pain TIA (transient ischemic attack) Vaginal pruritus Vitamin D deficiency Surgical History History of appendectomy History of cholecystectomy History of colonoscopy History of cyst of breast History of exploratory laparotomy History of hemicolectomy History of tooth extraction Family History (Updated 06/10/23 @ 15:02 by Amira Sweet) Father No problems noted. Mother Hypertension Stroke Diabetes Brother Leptospirosis Brother No problems noted. Family/Other FH: mental illness Son Hypertension Social History Household Members: Spouse Housing: Apartment Alcohol intake: never Patient Tobacco Use Status: Never used Tobacco e-Cigarette/Vaping Use: Never Used Second Hand Smoke Exposure: No service: No Current occupational status: disabled Sexual orientation: Straight/Heterosexual Gender identity: Female Cognitive needs: Yes Hearing needs: No Vision needs: Yes Female Reproductive History Menstrual Total pregnancies: 2 Full term: 2 Number of Living Children: 2 Date of last pap smear: 04/30/21 (neg pap and hpv) Date of Mammogram: 05/21/20 Date of last Bone Density Screenin10/21/22 Physical Exam Vital Signs: Last Vital Signs BP 102/64 06/10/23 14:36 BMI result Body Mass Index 31.1 Const General: cooperative, healthy appearing, no acute distress, well developed and alert Orientation/consciousness: patient oriented x3 HEENT Head: Yes normal to inspection Eyes General: appearance normal, both eyes and all related structures Neck Neck: Yes normal visual inspection Thyroid: Thyroid normal Chest Chest palpation & inspection: normal inspection of the chest Breast/axilla inspection: normal inspection of the breasts (no puckering, dimpling, peau de orange, retraction, discharge, masses) Breast/axilla palpation: normal palpation of the breasts Resp Effort & Inspection: normal respiratory effort GI Other: superficial right sided tenderness Inspection: Yes normal to inspection Palpation (GI): Soft to palpation (to palpation) Rectal Exam - Female: deferred General: Yes bladder normal to inspection External Female Exam: normal external appearance and normal appearance of the urethra Speculum Exam - Vagina: normal appearance of the vagina, normal palpation and vagina atrophic Speculum Exam - Cervix: normal appearance of the cervix and normal palpation Bimanual exam- vagina & uterus: normal palpation and normal palpation Bimanual Exam- Adnexa, other: normal adnexae and no masses Skin General skin exam: no rashes or lesions noted Neuro General: patient oriented x3 Cognition (Neuro): normal cognition Extrem General: Yes normal to inspection Psych Attitude: cooperative Thought process: Normal thought process present Results AMB Urinalysis, Automated UA Leukoctes 0 Merlin/uL Last Edit by DAVID Martin on 06/10/23 15:00 UA Nitrite Negative Last Edit by Domitila Ordaz [facility] on 06/10/23 15:00 UA Urobilinogen 0 mg/dL Last Edit by Domitila Ordaz [facility] on 06/10/23 15:0 0 UA Protein 0.5 mg/dL Last Edit by Domitila Ordaz [facility] on 06/10/23 15:00 UA pH 6.0 Last Edit by Domitila Ordaz [facility] on 06/10/23 15:00 UA Blood 0.5 [place]/uL Last Edit by Domitila Ordaz [facility] on 06/10/23 15:00 UA Specific [place] 1.025 Last Edit by Domitila Ordaz Abby on 06/10/23 15:00 UA Ketone Negative Last Edit by Domitila Ordaz Abby on 06/10/23 15:00 UA Bilirubin 0 mg/dL Last Edit by Domitila Ordaz [facility] on 06/10/23 15:00 UA Glucose 0 mg/dL Last Edit by Domitila Ordaz [facility] on 06/10/23 15:00 Results Reviewed Results Reviewed: Laboratory Last Values Urine pH (Auto) 6.0 06/10/23 14:59 Specific [place] (Auto) 1.025 06/10/23 14:59 Urine Protein (Auto) 0.5 mg/dL 06/10/23 14:59 Glucose (UA)(Auto) 0 mg/dL 06/10/23 14:59 Urine Ketones (Auto) Negative 06/10/23 14:59 Urine Blood (Auto) 0.5 [place]/uL 06/10/23 14:59 Urine Nitrite (Auto) Negative 06/10/23 14:59 Urine Bilirubin (Auto) 0 mg/dL 06/10/23 14:59 Urine Urobilinogen (Auto) 0 mg/dL 06/10/23 14:59 Leukocyte Esterase (Auto) 0 [place]/uL 06/10/23 14:59 Assessment & Plan Assessment & Plan (1) Encounter for well woman exam: Code(s): Z01.419 - Encounter for gynecological examination (general) (routine) without abnormal findings Plan: Discussed: Current recommendations for pap smears per ASCCP guidelines. Breast awareness and periodic self breast exams. Encouraged yearly mammograms. Maintaining a healthy lifestyle including a well balanced diet including Calcium and Vitamin D and routine exercise including gentle yoga or chair exercises. Mammogram ordered. Contact office with any PMB. All of her questions and concerns were addressed to the best of my ability RTO in 1 year for AG. (2) Uterine fibroid: Code(s): D25.9 - Leiomyoma of uterus, unspecified Plan: Leiomyoma: common pelvic neoplasm. Differential diagnosis-may include leiomyosarcoma which is a rare uterine sarcoma 3-7/100,000, difficult to distinguish from fibroids on ultrasound from uterine sarcoma's. Unlikely any single test will have a highly positive predictive value. Hysterectomy is not recommended for sole purpose of excluding malignant neoplasm. Expectant management. Report any PMB/AUB, pelvic pressure, bloating, or pain. Pelvic US ordered. Follow up in person. (3) Pelvic pain: Code(s): R10.2 - Pelvic and perineal pain Plan: GC/CT panel done today. Await results and treat accordingly. Informed differential diagnoses including: GI, , urinary, or muscular/skeletal sources. (4) Dysuria: Code(s): R30.0 - Dysuria Orders: Orders Urine Culture Today R30.0 - Dysuria MM tomosynthesis screening BI Today Z12.31 - Encounter for screening mammogram for malignant neoplasm of breast US pelvic and transvaginal Today D21.9 - Benign neoplasm of connective and other soft tissue, unspecified, R10.2 - Pelvic and perineal pain Bacterial Vaginosis Panel Today R10.2 - Pelvic and perineal pain CT NG by PCR Today R10.2 - Pelvic and perineal pain AMB Urinalysis Automated Today R30.0 - Dysuria Coding Level of Care Code Est Pt Prev Care >65y(97850) Diagnoses Encounter for well woman exam Z01.419 Uterine fibroid D25.9 Pelvic pain R10.2 Dysuria R30.0
[2023-06-10 14:36] VITALS: BP 102/64; BMI 31.1
== END 2023-06-10 15:18 | disposition home or self-care (01) ==
LOC: HO.HWS 14:29
PROVIDERS: PCP Internal Medicine; Visit Provider Advanced Practice Midwife
DX: Z01.419 Encounter for gynecological examination (general) (routine) without abnormal findings (principal); D25.9 Leiomyoma of uterus, unspecified; R10.2 Pelvic and perineal pain; R30.0 Dysuria
CPT/HCPCS: 99397

== ENCOUNTER 2023-06-10 15:21 | Outpatient (REF) | payer OTHER, SELFPAY ==
[2023-06-11 06:20] LABS: CT PCR NOT DETECTED (Not Detect.); NG PCR NOT DETECTED (Not Detect.)
[2023-06-11 12:07] LABS: BV Int Neg Control Negative (Negative); BV Int Pos Control Positive (Positive)
== END 2023-06-10 15:22 | disposition home or self-care (01) ==
LOC: HO.LNP 15:21
PROVIDERS: Visit Provider Advanced Practice Midwife
DX: R10.2 Pelvic and perineal pain (principal); R30.0 Dysuria
CPT/HCPCS: 0353U; 87086; 87480; 87510; 87660

== ENCOUNTER 2023-06-16 14:39 | Outpatient (REF) | payer OTHER, SELFPAY ==
--- NOTE | ~2023-06-16 | US_ITS ---
EXAMINATION: US PELVIS CLINICAL INFORMATION: Uterine leiomyoma COMPARISON: 12/26/2022 TECHNIQUE: Ultrasound of the pelvis is performed using both transabdominal and transvaginal transducers along with Doppler. Transvaginal imaging is performed due to inadequate visualization transabdominally. FINDINGS: Uterus: The uterus is anteverted and measures 6.3 x 4.1 x 4.3 cm. Uterine volume is 58.2 mL endometrium was unable to be visualized. 3.6 x 3.5 x 2.4 cm uterine fundal fibroid previously measured 2.9 x 3.0 x 2.8 cm. Adnexa: Right ovary measures 1.8 x 0.7 x 1.6 cm. Volume equals 1.1 mL. Previous measurement was 1.6 x 0.5 x 1.1 cm. Left ovary was not visualized, previously measuring 1.6 x 0.9 x 1.0 cm. No free fluid. US/US pelvic and transvaginal IMPRESSION: 3.6 cm uterine fundal fibroid. Inadequate evaluation of the endometrium. Nonvisualization left ovary.
== END 2023-06-16 14:40 | disposition home or self-care (01) ==
LOC: HO.US 14:39
PROVIDERS: PCP Internal Medicine; Visit Provider Advanced Practice Midwife
DX: D25.9 Leiomyoma of uterus, unspecified (principal); R10.2 Pelvic and perineal pain
CPT/HCPCS: 76830; 76856

== ENCOUNTER 2023-06-20 13:56 | Emergency (ER) | payer OTHER, SELFPAY ==
--- NOTE | ~2023-06-20 | CT_ITS ---
EXAMINATION: CT ABDOMEN AND PELVIS WITH CONTRAST CLINICAL INFORMATION: Upper abdominal and on. Umbilical pain COMPARISON: 11/02/2022 TECHNIQUE: Multidetector volumetric images were obtained from the superior aspect of the liver through the pubic symphysis following administration 85 mL of Omnipaque 350 intravenous contrast. Sagittal and coronal reformatted images were obtained on the technologist's workstation. Oral contrast: No This CT examination was performed using dose optimization techniques as appropriate, variously including the following: *Automated exposure control *Adjustment of mA and/or kV according to patient size (this includes techniques or standardized protocols for targeted exams where dose is matched to indication/reason for exam; i.e. extremities or head) *Use of iterative reconstruction technique DLP: 793 mGy-cm FINDINGS: LUNG BASES: The visualized lung bases are unremarkable. LIVER, GALLBLADDER, AND BILIARY TREE: Liver is of low attenuation due to hepatic steatosis without intrahepatic masses or ductal dilatation. Full bladder is surgically absent. PANCREAS: Unremarkable. SPLEEN: Unremarkable. ADRENAL GLANDS: Unremarkable. KIDNEYS AND URETERS: The kidneys are normal in size, shape, and attenuation. No hydronephrosis, hydroureter, or calculi seen. No perinephric stranding. BLADDER: Unremarkable. GASTROINTESTINAL TRACT: There is no evidence of diverticulitis bowel obstruction or diverticulosis. There changes of appendectomy with suture material at the base of the cecum. No evidence of mesenteric inflammatory changes. A small hiatal hernia. ABDOMINAL WALL: There is fat-containing small umbilical hernia. LYMPH NODES: Normal. VASCULAR: Unremarkable. PELVIC VISCERA: There is hilar and dense uterine mass in the fundus most likely uterine fibroid. OSSEOUS STRUCTURES: Unremarkable. CT/CT abdomen pelvis w IV con IMPRESSION: 1. No explanation for abdominal pain. 2. Hepatic steatosis. 3. Small hiatal hernia. 4. Fibroid uterus. Fleischner guidelines were followed.
[2023-06-20 14:00] VITALS: BP 152/73; PULSE 84; RESP 16; TEMP 36.4; O2SAT 100; BMI 31.6
--- NOTE | 2023-06-20 14:04 | ED_ITS ---
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 Related Data Home Medications Medication Instructions Recorded Confirmed alcohol swabs pad topical 09/11/20 02/11/23 citalopram 20 mg tablet mg PO 09/11/20 02/11/23 Previous Rx's Medication Instructions Recorded acetaminophen 650 mg 650 mg PO Q8H PRN pain #90 tabs 10/23/20 tablet,extended release (Tylenol Arthritis Pain) nebulizers (AeroEclipse II #1 ea 04/01/21 Nebulizer) gabapentin 100 mg capsule 100 mg PO BEDTIME 30 days #30 caps 09/06/21 walker #1 ea 11/08/21 clotrimazole-betamethasone 1 1 appl topical BID PRN itching 7 03/12/22 %-0.05 % topical cream days #45 grams aspirin 81 mg tablet,delayed 81 mg PO DAILY 90 days #90 tabs 09/24/22 release albuterol sulfate 90 mcg/actuation 2 puff inhalation Q4-6H PRN 12/04/22 aerosol inhaler shortness of breath or wheezing #6.7 grams fluticasone propionate 50 2 spray intranasal DAILY #16 grams 12/04/22 mcg/actuation nasal spray,suspension (Flonase Allergy Relief) docusate sodium 100 mg capsule 100 mg PO BEDTIME #90 caps 01/27/23 omeprazole 20 mg capsule,delayed 20 mg PO DAILY #90 caps 01/27/23 release polyethylene glycol 3350 17 17 g PO DAILY #510 grams 01/27/23 gram/dose oral powder (Miralax) albuterol sulfate 2.5 mg/3 mL 2.5 mg (3 mL) inhalation Q4-6H PRN 01/29/23 (0.083 %) solution for nebulization shortness of breath or wheezing 30 days #75 mL amlodipine 5 mg tablet 5 mg PO DAILY #30 tabs 01/29/23 atorvastatin 20 mg tablet 20 mg PO BEDTIME 90 days #90 tabs 01/29/23 calcium carbonate 500 mg-vitamin 1 tab PO DAILY 90 days #90 tabs 01/29/23 D3 10 mcg (400 unit) tablet (Oyster Shell Calcium-Vitamin D3) atenolol 50 mg tablet 50 mg PO DAILY 90 days #90 tabs 01/30/23 ibuprofen 600 mg tablet 600 mg PO Q6H PRN fever or pain 01/31/23 #30 tabs buspirone 10 mg tablet 10 mg PO BID 90 days #180 tabs 04/10/23 metformin 500 mg tablet 500 mg PO BID 90 days #180 tabs 06/19/23 Allergies Allergy/AdvReac Type Severity Reaction Status Date / Time Penicillins Allergy Intermediate DIZZINESS, Verified 06/10/23 14:38 RASH tramadol [TRAMADOL] Allergy Intermediate NAUSEA & Verified 06/10/23 14:38 VOMITING egg [Egg] AdvReac Intermediate NAUSEA & Verified 06/10/23 14:38 VOMITING morphine AdvReac Intermediate Chest Pain Verified 06/10/23 14:38 oxycodone AdvReac Dizziness Verified 06/10/23 14:38 FANY DRINK Allergy Intermediate NAUSEA & Uncoded 06/10/23 14:38 VOMITING Review of Systems Review of Systems Pertinent positives and negatives as stated in the [facility] Past Medical History Source: nursing notes reviewed Medical History Abdominal pain Asthma Back pain Burning with urination Depression with anxiety Dysuria Essential hypertension Exposure to COVID-19 virus Fibroids Hiatal hernia Left ankle pain Left knee pain Mild depression Pelvic pain Polyarthralgia Pure hypercholesterolemia Right shoulder pain TIA (transient ischemic attack) Vaginal pruritus Vitamin D deficiency Surgical History History of appendectomy History of cholecystectomy History of colonoscopy History of cyst of breast History of exploratory laparotomy History of hemicolectomy History of tooth extraction Family History Family History Father No problems noted. Mother Hypertension Stroke Diabetes Brother Leptospirosis Brother No problems noted. Family/Other FH: mental illness Son Hypertension Social History Social History Household Members: Spouse Housing: Apartment Alcohol intake: never Patient Tobacco Use Status: Never used Tobacco e-Cigarette/Vaping Use: Never Used Second Hand Smoke Exposure: No Advance Directives: No Advance Directives Information Provided: Yes service: No Current occupational status: disabled Sexual orientation: Straight/Heterosexual Gender identity: Female Cognitive needs: Yes Hearing needs: No Vision needs: Yes Physical Exam ED Vital Signs: Vital Signs - 24 hr 06/20/23 14:00 06/20/23 18:39 Temperature 97.5 F 98.4 F Pulse Rate 84 74 Respiratory Rate 16 18 Blood Pressure 152/73 H 147/81 H Pulse Oximetry 100 98 Oxygen Delivery Method Room Air Room Air BMI result Body Mass Index 31.6 VITAL SIGNS: Reviewed. GENERAL: Well developed, well nourished, in no acute distress. HEAD: Normocephalic/atraumatic EYES: PERRLA, EOMI LUNGS: Normal breath sounds. No adventitious sounds or accessory muscle use. SpO2<98> CARDIOVASCULAR: Regular rate and rhythm without noted murmurs ABDOMEN: Soft, diffusely tender, maximal on left abdomen, non-distended with bowel sounds. MUSCULOSKELETAL: No tenderness, deformities, or effusions noted on gross inspection. EXTREMITIES: No cyanosis, clubbing or edema. SKIN: Inspection of the skin reveals no rashes NEUROLOGIC: Alert and oriented x 4. Strength and sensation to light touch were grossly intact x 4. Course Course Course Narrative: RME: 67 F w/PMHx hiatal hernia, HTN, polyarthralgia, asthma, TIA, s/p appendectomy, cholecystectomy, and hemicolectomy c/o upper abdominal pain x few days. Pain is constant worse w/eating. Denies N/V, CP/SOB, fever Abdomen soft with RUQ/epigastris/LUQ & periumbilical tenderness EKG, Labs, UA, CT AP ordered Full HPI, ROS and PE to be performed by primary ED provider. Medical Decision Making Medical Decision Making MDM Narrative: 67-year-old female with history and clinical presentation, DDX: SBO, renal colic, UTI, colitis, diverticulitis. I reviewed all investigations and hematologic indices are grossly within normal limits, is no leukocytosis or left shift, patient is afebrile, there is no thrombocytopenia and patient has a chronically stable normocytic anemia. Coagulation studies are grossly within normal limits. Chemistry studies are grossly within normal limits, there is no BRANDON I are electrolyte derangement. Liver enzymes are grossly within normal limits and the alkaline phosphatase elevation is stable. Lipase is 29. Urinalysis negative for UTI or hematuria. CT scan is negative for obstruction, patient is status post appendectomy, there is no evidence of diverticulitis, pancreatitis, renal colic. There is a noted uterine fibroid and otherwise my interpretation is in agreement with radiology's impression. My interpretation is that patient may have a component of irritable bowel or possible gastritis. Patient does have a uterine fibroid which may be contributing to some of her symptoms and will recommend evaluation by outpatient gynecology. Differential Diagnosis Differential Diagnoses: The differential diagnosis associated with the presentation includes Please see the discussion above Admission/Observation Consideration of admission/observation: Escalation of care including admission/observation considered Please see the discussion above Lab Data MDM Lab Attestation statement: I reviewed the patient's lab results. Please see the discussion above 06/20/23 14:36 06/20/23 14:36 Labs: Lab Results 06/20/23 06/20/23 06/20/23 Range/Units 14:36 14:36 14:36 WBC 9.6 (4.8-10.8) X10*3/uL RBC 4.04 L (4.20-5.50) X10*6/uL Hgb 11.9 L (12.0-16.0) g/dl Hct 36.9 L (37.0-47.0) % MCV 91.3 (80.0-98.0) fL MCH 29.5 (27.0-33.0) pg MCHC 32.2 (31.0-35.0) g/dl RDW 12.6 (11.0-16.0) % Plt Count 255 (160-400) X10*3/uL MPV 11.3 (9.4-12.3) fL Immature Gran % (Auto) 0.3 (0.0-0.4) % Neut % (Auto) 70.1 (45-73) % Lymph % (Auto) 21.5 (20-40) % [place] % (Auto) 6.7 (2-11) % Eos % (Auto) 1.0 (0-4) % Baso % (Auto) 0.4 (0-2) % Lymph # (Auto) 2.1 (1.2-4.9) X10*3/uL [place] # (Auto) 0.6 (0.1-1.2) X10*3/uL Eos # (Auto) 0.1 (0.0-0.4) X10*3/uL Baso # (Auto) 0.0 (0.0-0.2) X10*3/uL Abs Immat Gran (auto) 0.03 (0.00-0.03) X10*3/uL Absolute Neuts (auto) 6.7 (2.0-8.3) x10*3/uL Absolute Nucleated RBC 0.000 (0.0-0.012) X10*3/uL Nucleated RBC % (auto) 0.0 (0.0-0.2) /100WBC PT 12.6 (11.1-13.3) SEC INR 1.0 (0.9-1.1) Sodium 138 (135-145) mmol/L Potassium 4.1 (3.3-5.1) mmol/L Chloride 105 (96-108) mmol/L Carbon Dioxide 25 (22-29) mmol/L Anion Gap 12 (12-20) BUN 13 (9-16) mg/dL Creatinine 0.82 (0.5-1.4) mg/dL Estim Creat Clear Calc 62.7 Estimated GFR > 60 Random Glucose 187 H (60-115) mg/dL Calcium 9.8 D (8.4-10.2) mg/dL Magnesium 2.0 (1.6-2.6) mg/dL Total Bilirubin 0.4 (0.0-1.0) mg/dL Direct Bilirubin 0.2 (0.0-0.5) mg/dL AST 16 (5-31) U/L ALT 16 (0-31) U/L Alkaline Phosphatase 145 H (39-117) U/L Total Protein 7.2 (6.5-8.0) g/dL Albumin 3.9 (3.5-5.0) g/dL Lipase 29 (8-78) U/L Urine Color Urine Appearance Urine pH (5.0-9.0) Ur Specific [place] (1.005-1.025) Urine Protein (Neg-Trace) mg/dL Urine Glucose (UA) (Negative) mg/dL Urine Ketones (Negative) mg/dL Urine Blood (Negative) Urine Nitrite (Negative) Ur Leukocyte Esterase (Negative) 06/20/23 Range/Units 19:35 WBC (4.8-10.8) X10*3/uL RBC (4.20-5.50) X10*6/uL Hgb (12.0-16.0) g/dl Hct (37.0-47.0) % MCV (80.0-98.0) fL MCH (27.0-33.0) pg MCHC (31.0-35.0) g/dl RDW (11.0-16.0) % Plt Count (160-400) X10*3/uL MPV (9.4-12.3) fL Immature Gran % (Auto) (0.0-0.4) % Neut % (Auto) (45-73) % Lymph % (Auto) (20-40) % [place] % (Auto) (2-11) % Eos % (Auto) (0-4) % Baso % (Auto) (0-2) % Lymph # (Auto) (1.2-4.9) X10*3/uL [place] # (Auto) (0.1-1.2) X10*3/uL Eos # (Auto) (0.0-0.4) X10*3/uL Baso # (Auto) (0.0-0.2) X10*3/uL Abs Immat Gran (auto) (0.00-0.03) X10*3/uL Absolute Neuts (auto) (2.0-8.3) x10*3/uL Absolute Nucleated RBC (0.0-0.012) X10*3/uL Nucleated RBC % (auto) (0.0-0.2) /100WBC PT (11.1-13.3) SEC INR (0.9-1.1) Sodium (135-145) mmol/L Potassium (3.3-5.1) mmol/L Chloride (96-108) mmol/L Carbon Dioxide (22-29) mmol/L Anion Gap (12-20) BUN (9-16) mg/dL Creatinine (0.5-1.4) mg/dL Estim Creat Clear Calc Estimated GFR Random Glucose (60-115) mg/dL Calcium (8.4-10.2) mg/dL Magnesium (1.6-2.6) mg/dL Total Bilirubin (0.0-1.0) mg/dL Direct Bilirubin (0.0-0.5) mg/dL AST (5-31) U/L ALT (0-31) U/L Alkaline Phosphatase (39-117) U/L Total Protein (6.5-8.0) g/dL Albumin (3.5-5.0) g/dL Lipase (8-78) U/L Urine Color Yellow Urine Appearance Clear Urine pH 6.5 (5.0-9.0) Ur Specific [place] >= 1.030 H (1.005-1.025) Urine Protein Negative (Neg-Trace) mg/dL Urine Glucose (UA) Negative (Negative) mg/dL Urine Ketones Negative (Negative) mg/dL Urine Blood Negative (Negative) Urine Nitrite Negative (Negative) Ur Leukocyte Esterase Negative (Negative) Independent Interpretation I performed an independent interpretation of an: EKG Interpretation: Normal sinus rhythm, HR-72, no STEMI, CA/QRS/QTC is within normal limits. Radiology Impression Discussion of test interpretation with radiology: I have reviewed the radiologist's reading. Radiologist Impression: Please see the discussion above External Record Review External record reviewed: Outpatient record, Prior outpatient labs and Prior outpatient radiology Chronic Conditions Patient?s care impacted by: Hypertension Medications Administered Discontinued Medications Generic Name Dose Route Start Last Admin Trade Name Freq PRN Reason Stop Dose Admin Iohexol 100 ml 06/20/23 18:42 06/20/23 18:42 Iohexol 350 Mg/Ml 100 Ml Infus..Btl IV 06/20/23 18:43 85 ml ONCE ONE Administration Ketorolac Tromethamine 15 mg 06/20/23 18:10 06/20/23 18:37 Ketorolac Tromethamine 30 Mg/Ml Vial IVPUSH 06/20/23 18:11 15 mg ONCE ONE Administration Discharge Plan Discharge Clinical Impression: Gastritis, Fibroid, uterine Patient Disposition: Home, Self-Care Instructions: Gastritis (ED), Diet for Stomach Ulcers and Gastritis (ED) Additional Instructions: 1. Reanudar todos los medicamentos caseros seg?n lo recetado. 2. Recomiende un seguimiento con sullivan proveedor de atenci?n primaria el lunes por la ma?aure. 3. Recomiende medicamentos para el control del ?cido de venta tomi, karly Mylan ta, Tums. Se lopez observado que tiene un fibroma uterino que sullivan ginec?logo puede evaluar m?s a fondo en el ?mbito ambulatorio o consultarlo con sullivan m?dico de atenci?n primaria. Regrese a la adán de emergencias si los s?ntomas empeoran. 1. Resume all home medications as prescribed. 2. Recommend follow-up with your primary care provider on Thursday morning. 3. Recommend lyzb-cve-utquldb acid control medications such as Mylanta, Tums. Your noted to have a uterine fibroid which can be further evaluated in the outpatient setting by your print line feeder or a discussion with your primary care doctor. Return to the ER for any worsening symptoms. Prescriptions: No Action (DME) AeroEclipse II Nebulizer [facility] See Rx Instructions .ROUTE .MEDSUPPLY Qty: 1 0RF Rx Instructions: As directed gabapentin 100 mg capsule 100 mg PO BEDTIME 30 Days Qty: 30 6RF (DME) walker [facility] [place] See Rx Instructions .ROUTE .MEDSUPPLY Qty: 1 0RF Rx Instructions: As Directed clotrimazole-betamethasone 1-0.05 % cream 1 appl topical BID PRN (Reason: itching) 7 Days Qty: 45 0RF aspirin 81 mg tablet,delayed release (DR/EC) 81 mg PO DAILY 90 Days Qty: 90 3RF albuterol sulfate 2.5 mg /3 mL (0.083 %) solution for nebulization 2.5 mg inhalation Q4-6H PRN (Reason: shortness of breath or wheezing) 30 Days Qty: 75 2RF amlodipine 5 mg tablet 5 mg PO DAILY Qty: 30 6RF atorvastatin 20 mg tablet 20 mg PO BEDTIME 90 Days Qty: 90 1RF calcium carbonate-vitamin D3 [Oyster Shell Calcium-Vit D3] 500 mg-10 mcg (400 unit) tablet 1 tab PO DAILY 90 Days Qty: 90 2RF atenolol 50 mg tablet 50 mg PO DAILY 90 Days Qty: 90 2RF buspirone 10 mg tablet 10 mg PO BID 90 Days Qty: 180 1RF metformin 500 mg tablet 500 mg PO BID 90 Days Qty: 180 1RF fluticasone propionate [Flonase Allergy Relief] 50 mcg/actuation spray,suspension 2 spray intranasal DAILY Qty: 16 0RF Rx Instructions: administer into each nostril albuterol sulfate 90 mcg/actuation HFA aerosol inhaler 2 puff inhalation Q4-6H PRN (Reason: shortness of breath or wheezing) Qty: 6.7 0RF ibuprofen 600 mg tablet 600 mg PO Q6H PRN (Reason: fever or pain) Qty: 30 0RF alcohol swabs Pads, Medicated topical citalopram 20 mg tablet PO acetaminophen [Tylenol Arthritis Pain] 650 mg tablet extended release 650 mg PO Q8H PRN (Reason: pain) Qty: 90 4RF omeprazole 20 mg capsule,delayed release(DR/EC) 20 mg PO DAILY Qty: 90 3RF docusate sodium 100 mg capsule 100 mg PO BEDTIME Qty: 90 3RF polyethylene glycol 3350 [Miralax] 17 gram/dose powder 17 g PO DAILY Qty: 510 2RF Referrals: Aure Barrett MD [Primary Care Provider] - Print Language: Kyrgyz
--- NOTE | 2023-06-20 14:07 | ECG_ITS ---
Test Reason : UPPER ABDOMINAL PAIN Blood Pressure : / mmHG Vent. Rate : 072 BPM Atrial Rate : 072 BPM P-R Int : 138 ms QRS Dur : 078 ms QT Int : 402 ms P-R-T Axes : 058 -28 058 degrees QTc Int : 440 ms Normal sinus rhythm Moderate voltage criteria for LVH, may be normal variant ( R in aVL , Masoud product ) Nonspecific T wave abnormality Abnormal ECG When compared with ECG of 31-JAN-2023 02:48, No significant change was found Referred By: Beatriz Buck Electronically Signed By:DANTE DENIS
[2023-06-20 14:41] LABS: MANUAL DIFF FLAG NO
[2023-06-20 14:44] LABS: Basophils Percent Auto 0.4 % (0-2); Eosinophils Absolute Auto 0.1 X10*3/uL (0.0-0.4); Hematocrit 36.9 % (37.0-47.0); Hemoglobin 11.9 g/dl (12.0-16.0); Imm Gran Abs Auto 0.03 X10*3/uL (0.00-0.03); Imm Gran Pct Auto 0.3 % (0.0-0.4); Lymphocytes Absolute Auto 2.1 X10*3/uL (1.2-4.9); Lymphocytes Percent Auto 21.5 % (20-40); Mean Corpuscular HGB Conc 32.2 g/dl (31.0-35.0); Mean Corpuscular Hemoglobin 29.5 pg (27.0-33.0); Mean Corpuscular Volume 91.3 fL (80.0-98.0); Mean Platelet Volume 11.3 fL (9.4-12.3); Monocytes Absolute Auto 0.6 X10*3/uL (0.1-1.2); Monocytes Percent Auto 6.7 % (2-11); Neutrophils Absolute Auto 6.7 x10*3/uL (2.0-8.3); Neutrophils Percent Auto 70.1 % (45-73); Platelet Count 255 X10*3/uL (160-400); Red Blood Count 4.04 X10*6/uL (4.20-5.50); Red Cell Distribution Width 12.6 % (11.0-16.0); White Blood Count 9.6 X10*3/uL (4.8-10.8)
[2023-06-20 14:59] LABS: Alanine Aminotransferase 16 U/L (0-31); Albumin Level 3.9 g/dL (3.5-5.0); Alkaline Phosphatase 145 U/L (39-117); Anion Gap 12 (12-20); Aspartate Amino Transferase 16 U/L (5-31); Bilirubin Direct 0.2 mg/dL (0.0-0.5); Bilirubin Total 0.4 mg/dL (0.0-1.0); Blood Urea Nitrogen 13 mg/dL (9-16); Calcium 9.8 mg/dL (8.4-10.2); Carbon Dioxide 25 mmol/L (22-29); Chloride 105 mmol/L (96-108); Creatinine Clr Calc Pharmacy 62.7; Estimated Glomerular Filt Rate > 60; Glucose Random 187 mg/dL (60-115); Lipase 29 U/L (8-78); Potassium 4.1 mmol/L (3.3-5.1); Sodium 138 mmol/L (135-145); Total Protein 7.2 g/dL (6.5-8.0)
[2023-06-20 15:02] LABS: Prothrombin Time 12.6 SEC (11.1-13.3)
[2023-06-20] MEDS: Ketorolac Tromethamine 30 MG/ML VIAL 15 MG IVPUSH (18:37)
[2023-06-20 18:39] VITALS: BP 147/81; PULSE 74; RESP 18; TEMP 36.9; O2SAT 98
[2023-06-20] MEDS: iohexoL 350 MG/ML 100 ML INFUS..BTL IV (18:42)
--- NOTE | 2023-06-20 19:31 | PC.NURSE ---
pt ambulating to and from bathroom with steady gait. collecting urine sample
[2023-06-20 19:42] LABS: Appearance Urine Clear; Color Urine Yellow; Glucose Urine UA Negative (Negative); Leukocyte Esterase Urine Negative (Negative); Nitrite Urine Negative (Negative); PH 6.5 (5.0-9.0); Specific Gravity - Urine >= 1.030 (1.005-1.025); Urine Blood Negative (Negative); Urine Ketones Negative (Negative); Urine Protein Negative (Neg-Trace)
[2023-06-20] MEDS: Mag&Al/Sim/Diphenhyd/Lidocaine 10 ML ORAL.SUSP PO (20:49)
[2023-06-20] MEDS: Dicyclomine HCl 10 MG CAPSULE PO (20:49)
== END 2023-06-20 20:54 | disposition home or self-care (01) ==
PROVIDERS: Physician Assistant; Emergency Provider Student in an Organized Health Care Education/Training Program; PCP Internal Medicine
DX: K29.70 Gastritis, unspecified, without bleeding (principal); D25.9 Leiomyoma of uterus, unspecified; K44.9 Diaphragmatic hernia without obstruction or gangrene; I10 Essential (primary) hypertension; E78.00 Pure hypercholesterolemia, unspecified; Z86.73 Personal history of transient ischemic attack (TIA), and cerebral infarction without residual deficits; Z79.84 Long term (current) use of oral hypoglycemic drugs; Z79.899 Other long term (current) drug therapy
CPT/HCPCS: 36415; 74177; 80048; 80076; 81003; 83690; 83735; 85025; 85610; 93005; 96374; 99284; J1885; Q9967

== ENCOUNTER 2023-06-23 09:16 | Outpatient (REF) | payer OTHER, SELFPAY ==
--- NOTE | ~2023-06-23 | MM_ITS ---
EXAMINATION: MM SCREENING DIGITAL BREAST TOMOSYNTHESIS, BILATERAL CLINICAL INFORMATION: Screening. Asymptomatic. COMPARISON: Mammography: 05/21/2020, 01/26/2018, 11/18/2016. Ultrasound 05/21/2020. TECHNIQUE: Digital breast tomosynthesis is performed in both the craniocaudal and mediolateral oblique views along with computer-aided detection (CAD). Synthesized 2D images are generated from the tomosynthesis. FINDINGS: There are scattered areas of fibroglandular density (ACR BI-RADS breast composition Category b). There are no suspicious masses, suspicious grouped calcifications, or areas of architectural distortion. The parenchymal pattern is stable from prior exams. There are no skin changes. Tiny cyst lower inner right breast similar to prior 2017 and 2016 imaging. MM/MM tomosynthesis screening BI IMPRESSION: No mammographic evidence of malignancy. Stable benign findings. ASSESSMENT: BI-RADS BI-RADS 2 - Benign Findings RECOMMENDATION: Routine annual mammography screening. 1 year F/U This examination should not preclude the clinical evaluation of a suspicious palpable abnormality. This patient's information was entered into a reminder system with a target due date for their next mammogram.
== END 2023-06-23 09:17 | disposition home or self-care (01) ==
LOC: HO.MAMMO 09:16
PROVIDERS: PCP Internal Medicine; Visit Provider Advanced Practice Midwife
DX: Z12.31 Encounter for screening mammogram for malignant neoplasm of breast (principal)
CPT/HCPCS: 77063; 77067

== ENCOUNTER → 2023-06-23 10:00 | Outpatient (BNV) | payer OTHER, SELFPAY | PROVIDERS: PCP Internal Medicine; Visit Provider Radiology Diagnostic Radiology | DX: Z12.31 Encounter for screening mammogram for malignant neoplasm of breast (principal) | CPT/HCPCS: 77063; 77067 ==

== ENCOUNTER 2023-06-25 09:51 | Outpatient (AMB) | payer OTHER, MEDICAID, SELFPAY ==
--- NOTE | 2023-06-25 09:53 | MHC.PC.OV ---
Vital Signs 06/25/23 09:55 Height 5 ft 2 in Weight 172 lb BMI 31.5 BP 132/70 Blood Pressure Location Lt brachial Position Sitting Intake Visit Reasons: Annual Exam Intake Note: Patient here for a physical exam Mail Clerk Required: No Accompanied by: ASSET PROTECTION OFFICER Allergies Penicillins Allergy (Intermediate, Verified 06/25/23 10:17) DIZZINESS, RASH tramadol [TRAMADOL] Allergy (Intermediate, Verified 06/25/23 10:17) NAUSEA & VOMITING egg [Egg] Adverse Reaction (Intermediate, Verified 06/25/23 10:17) NAUSEA & VOMITING morphine Adverse Reaction (Intermediate, Verified 06/25/23 10:17) Chest Pain oxycodone Adverse Reaction (Verified 06/25/23 10:17) Dizziness FANY DRINK Allergy (Intermediate, Uncoded 06/25/23 10:17) NAUSEA & VOMITING Medication List - Last Reconciled 06/25/23 by Aure Horton MD acetaminophen ER (Tylenol Arthritis Pain) 650 mg PO Q8H PRN albuterol sulfate 90 mcg/actuation 2 puffs inhalation Q4-6H PRN albuterol sulfate 2.5 mg (3 mL) inhalation Q4-6H PRN 30 days alcohol swabs pad topical amlodipine 5 mg PO DAILY aspirin 81 mg PO DAILY 90 days atenolol 50 mg PO DAILY 90 days atorvastatin 20 mg PO BEDTIME 90 days buspirone 10 mg PO BID 90 days calcium carbonate-vitamin D3 500 mg-10 mcg (400 unit) (Oyster Shell Calcium-Vitamin D3) 1 tab PO DAILY 90 days citalopram mg PO clotrimazole-betamethasone 1-0.05 % 1 appl topical BID PRN 7 days docusate sodium 100 mg PO BEDTIME fluticasone propionate 50 mcg/actuation (Flonase Allergy Relief) 2 sprays intranasal DAILY gabapentin 100 mg PO BEDTIME 30 days ibuprofen 600 mg PO Q6H PRN metformin 500 mg PO BID 90 days nebulizers (AeroEclipse II Nebulizer) As directed omeprazole 20 mg PO DAILY polyethylene glycol 3350 (Miralax) 17 grams PO DAILY walker As Directed Tobacco use date assessed: 10/22/22 Fall risk assessment: No Falls in past year Last assessed Fall Risk: 06/25/23 Dental Screening Dental Screen Date: 06/25/23 Did you have a dental visit in the last 12 months?: Yes Did you have a dental problem in the last 6 months where you did not have access to dental care?: No Was dental information given to patient?: Patient has dentist HPI HPI Comments History of Present Illness Details This is a 67-year-old female with mild depression and diabetes mellitus type 2 that comes for her physical exam accompanied by DARYL Caity. Depression stable with citalopram. A1c elevated but she has run out of metformin over a month ago. Diabetic eye exam was over 2 years ago and was referred to Ophthalmology. Last colonoscopy was 2021. Last Pap smear was 2020. No chest pain or shortness of breath. [facility] Medical History (Updated 06/25/23 @ 10:35 by Aure Horton MD) Impaired glucose regulation Dysuria Pelvic pain Burning with urination Fibroids Hiatal hernia Right shoulder pain Exposure to COVID-19 virus Mild depression TIA (transient ischemic attack) Asthma Back pain Abdominal pain Vaginal pruritus Vitamin D deficiency Left knee pain Left ankle pain Depression with anxiety Polyarthralgia Pure hypercholesterolemia Essential hypertension Surgical History History of tooth extraction History of colonoscopy History of cyst of breast History of hemicolectomy History of cholecystectomy History of appendectomy History of exploratory laparotomy Family History Father No problems noted. Mother Hypertension Stroke Diabetes Brother Leptospirosis Brother No problems noted. Family/Other FH: mental illness Son Hypertension Social History Household Members: Spouse Housing: Apartment Alcohol intake: never Patient Tobacco Use Status: Never used Tobacco e-Cigarette/Vaping Use: Never Used Second Hand Smoke Exposure: No service: No Current occupational status: disabled Sexual orientation: Straight/Heterosexual Gender identity: Female Cognitive needs: Yes Hearing needs: No Vision needs: Yes Questionnaire Thrive Questionnaire Date Thrive assessed: 10/22/22 JESSICA-7 AMB Questionnaire JESSICA-7 Date JESSICA - 7 assessed: 10/22/22 Source: Developed by Drs. Dagoberto Mercer, Adry Valentin, Néstor Garcia and colleagues, with an educational zheng from [employer]. Review of Systems Const All systems reviewed & are unremarkable except as noted in HPI and below Eyes Reports no additional complaints, Denies change in vision and Denies other visual disturbances Card Denies chest pain at rest, Denies chest pain with activity, Denies edema, Denies irregular heart rhythm, Denies claudication, Denies dyspnea, Denies dyspnea on exertion, Denies orthopnea, Denies paroxysmal nocturnal dyspnea and Denies slow heart rate Resp Denies cough, Denies dyspnea and Denies dyspnea on exertion GI Denies abdominal pain, Denies change in bowel habits, Denies excessive flatus, Denies nausea and Denies vomiting Denies urinary incontinence, Denies urinary hesitancy and Denies urinary urgency Musc Denies abnormal gait, Denies atrophy, Denies deformity and Denies limited range of motion Skin/Breast Denies bleeding lesions, Denies changing lesions and Denies rash Neuro Denies abnormal gait and Denies lack of coordination Physical exam (Primary Care) Vital Signs: Last Vital Signs BP 132/70 06/25/23 09:55 BMI result Body Mass Index 31.5 Tobacco/Smoking Status: Tobacco use Status Tobacco use date assessed 10/22/22 06/25/23 10:00 Patient Tobacco Use Status Never used Tobacco 06/25/23 10:00 e-Cigarette/Vaping Use Never Used 06/25/23 10:00 Thrive Assessment: Date of Thrive Assessment Date Thrive assessed 10/22/22 06/25/23 10:00 Const Orientation/consciousness: patient oriented x3 [facility] Head: Yes normal to inspection, Yes normocephalic and Yes atraumatic Ears: external ears normal Eyes General: appearance normal, both eyes and all related structures Eyelids: Yes eyelids normal Conjunctivae: conjunctivae normal Neck Neck: Yes normal visual inspection and Yes supple Resp Effort & Inspection: normal respiratory effort Auscultation: clear to auscultation bilaterally Cardio Jugular venous distension: no JVD Rate: regular rate Rhythm: regular rhythm Heart sounds: S1 normal heart sound present and S2 normal heart sound present GI Inspection: Yes normal to inspection Palpation (GI): Soft to palpation and nontender Auscultation: normal bowel sounds Skin General skin exam: no rashes or lesions noted Neuro General: patient oriented x3 and no focal motor deficits Extrem General: Yes full ROM Psych Appearance: grossly normal Results AMB Hemoglobin A1c AMB Hemoglobin A1c 7.3 % Last Edit by DAVID Walton on 06/25/23 10:27 Assessment and Plan Assessment & Plan (1) Physical exam: Code(s): Z00.00 - Encounter for general adult medical examination without abnormal findings Plan: Repeat in a year (2) Diabetes mellitus: Code(s): E11.9 - Type 2 diabetes mellitus without complications Qualifiers: Diabetes mellitus type: type 2 Diabetes mellitus exterminator helper termite insulin use: without assisted use Diabetes mellitus complication status: without complication Qualified Code(s): E11.9 - Type 2 diabetes mellitus without complications Plan: Continue metformin. A1c goal is equal or less than 7%. Diabetic eye exam yearly. (3) Mild depression: Code(s): F32.0 - Major depressive disorder, single episode, mild Plan: Continue citalopram. Orders: Orders Lipid Panel 4 Months E78.5 - Hyperlipidemia, unspecified Vitamin D 25-OH Total 4 Months E55.9 - Vitamin D deficiency, unspecified AMB Hemoglobin A1c Today R73.09 - Other abnormal glucose Microalbumin, Random (w Creat) 4 Months E11.9 - Type 2 diabetes mellitus without complications Comprehensive Kiron. Panel Fast 4 Months I10 - Essential (primary) hypertension Referrals Ophthalmology Referral E11.9 - Type 2 diabetes mellitus without complications Medications: Refilled metformin 500 mg PO BID 90 days 180 tabs 1RF Coding Level of Care Code Est Pt Prev Care >65y(09966) Diagnoses Physical exam Z00.00 Type 2 diabetes mellitus without complication, without long-term current use of insulin E11.9 Diabetes mellitus type: type 2 Diabetes mellitus assisted insulin use: without exterminator helper termite use Diabetes mellitus complication status: without complication Mild depression F32.0 Time Spent (min) 32
[2023-06-25 09:55] VITALS: BP 132/70; BMI 31.5
== END 2023-06-25 10:30 | disposition home or self-care (01) ==
PROVIDERS: PCP Internal Medicine; Visit Provider Internal Medicine
DX: Z00.00 Encounter for general adult medical examination without abnormal findings (principal); E11.9 Type 2 diabetes mellitus without complications; F32.0 Major depressive disorder, single episode, mild; R73.09 Other abnormal glucose
CPT/HCPCS: 83036; 99397

== ENCOUNTER 2023-07-31 10:14 | Outpatient (AMB) | payer OTHER, SELFPAY ==
--- NOTE | 2023-07-31 10:36 | MHC.OFFVIS ---
Intake Vital Signs 07/31/23 10:44 Height 5 ft 2 in Weight 171 lb 15.369 oz BMI 31.4 BP 120/74 Intake Visit Reasons: US follow up Intake Note: Patient here for ultrasound results. The patient agreed to use of a adjunct faculty for medical terminology during this encounter. Scribed for VRASHA Moreno by Amira Sweet adjunct faculty for medical terminology, on 07/31/2023 at 10:58 am EST. Tire Trucker Required: Yes Tire Trucker Language: Die Finisher Forging Name: Iraida HERNANDEZ Information Interpreted: non-clinical & clinical Accompanied by: Self / Same As Patient Allergies Penicillins Allergy (Intermediate, Verified 07/31/23 10:45) DIZZINESS, RASH tramadol [TRAMADOL] Allergy (Intermediate, Verified 07/31/23 10:45) NAUSEA & VOMITING egg [Egg] Adverse Reaction (Intermediate, Verified 07/31/23 10:45) NAUSEA & VOMITING morphine Adverse Reaction (Intermediate, Verified 07/31/23 10:45) Chest Pain oxycodone Adverse Reaction (Verified 07/31/23 10:45) Dizziness FANY DRINK Allergy (Intermediate, Uncoded 07/31/23 10:45) NAUSEA & VOMITING Post menopausal: Yes HPI HPI Comments History of Present Illness Details She is here to discuss US results regarding uterine fibroid. Admits pelvic pain. Reports burning with urination in the past visit that has not been resolved. Reports loosing weight and has had a change in diet; healthier and smaller portions. [facility] Medical History Impaired glucose regulation Dysuria Pelvic pain Burning with urination Fibroids Hiatal hernia Right shoulder pain Exposure to COVID-19 virus Mild depression TIA (transient ischemic attack) Asthma Back pain Abdominal pain Vaginal pruritus Vitamin D deficiency Left knee pain Left ankle pain Depression with anxiety Polyarthralgia Pure hypercholesterolemia Essential hypertension Surgical History History of tooth extraction History of colonoscopy History of cyst of breast History of hemicolectomy History of cholecystectomy History of appendectomy History of exploratory laparotomy Family History Father No problems noted. Mother Hypertension Stroke Diabetes Brother Leptospirosis Brother No problems noted. Family/Other FH: mental illness Son Hypertension Social History Household Members: Spouse Housing: Apartment Alcohol intake: never Patient Tobacco Use Status: Never used Tobacco e-Cigarette/Vaping Use: Never Used Second Hand Smoke Exposure: No service: No Current occupational status: disabled Sexual orientation: Straight/Heterosexual Gender identity: Female Cognitive needs: Yes Hearing needs: No Vision needs: Yes Physical Exam Vital Signs: Last Vital Signs BP 120/74 07/31/23 10:44 BMI result Body Mass Index 31.4 Const General: cooperative, healthy appearing, comfortable, no acute distress, well developed, alert and awake Results Reviewed Results Reviewed: EXAMINATION: US PELVIS CLINICAL INFORMATION: Uterine leiomyoma COMPARISON: 12/26/2022 TECHNIQUE: Ultrasound of the pelvis is performed using both transabdominal and transvaginal transducers along with Doppler. Transvaginal imaging is performed due to inadequate visualization transabdominally. FINDINGS: Uterus: The uterus is anteverted and measures 6.3 x 4.1 x 4.3 cm. Uterine volume is 58.2 mL endometrium was unable to be visualized. 3.6 x 3.5 x 2.4 cm uterine fundal fibroid previously measured 2.9 x 3.0 x 2.8 cm. Adnexa: Right ovary measures 1.8 x 0.7 x 1.6 cm. Volume equals 1.1 mL. Previous measurement was 1.6 x 0.5 x 1.1 cm. Left ovary was not visualized, previously measuring 1.6 x 0.9 x 1.0 cm. No free fluid. US/US pelvic and transvaginal IMPRESSION: 3.6 cm uterine fundal fibroid. Inadequate evaluation of the endometrium. Nonvisualization left ovary. Assessment & Plan Assessment & Plan (1) Encounter to discuss test results: Code(s): Z71.2 - Person consulting for explanation of examination or test findings Plan: Discussed: US findings: 3.6 cm uterine fundal fibroid. Inadequate evaluation of the endometrium. Nonvisualization left ovary. Plevic pain with enlarged fibroid, plan referral to [facility] for consultation/managment plan. All of her questions and concerns were addressed to the best of my ability and shared decision making. She is agreeable to plan of care. (2) Dysuria: Code(s): R30.0 - Dysuria Plan: Referral sent to Urologist (3) Uterine fibroid: Code(s): D25.9 - Leiomyoma of uterus, unspecified Plan: Referral to specialist at [facility]. Orders: Referrals WRAPAROUND FACILITATOR Referral D25.9 - Leiomyoma of uterus, unspecified, R10.2 - Pelvic and perineal pain Urology Referral R30.0 - Dysuria Coding Level of Care Code Est Pt Level 3 (39900) Diagnoses Encounter to discuss test results Z71.2 Dysuria R30.0 Uterine fibroid D25.9
[2023-07-31 10:44] VITALS: BP 120/74; BMI 31.4
== END 2023-07-31 11:54 | disposition home or self-care (01) ==
PROVIDERS: PCP Internal Medicine; Visit Provider Advanced Practice Midwife
DX: Z71.2 Person consulting for explanation of examination or test findings (principal); R30.0 Dysuria; D25.9 Leiomyoma of uterus, unspecified
CPT/HCPCS: 99213

== ENCOUNTER → 2023-07-31 10:14 | Outpatient (BNVA) | payer OTHER, MEDICAID, SELFPAY | PROVIDERS: PCP Internal Medicine; Visit Provider Advanced Practice Midwife | DX: Z71.2 Person consulting for explanation of examination or test findings (principal); D25.9 Leiomyoma of uterus, unspecified; R30.0 Dysuria | CPT/HCPCS: 99212 ==

== ENCOUNTER 2023-09-26 18:06 | Emergency (ER) | payer OTHER, SELFPAY ==
[2023-09-26 19:08] VITALS: BP 177/54; PULSE 55; RESP 14; TEMP 36.1; O2SAT 99; BMI 33.2
[2023-09-26 20:54] LABS: MANUAL DIFF FLAG NO
[2023-09-26 20:58] LABS: Basophils Absolute Auto 0.1 X10*3/uL (0.0-0.2); Basophils Percent Auto 0.8 % (0-2); Eosinophils Absolute Auto 0.2 X10*3/uL (0.0-0.4); Eosinophils Percent Auto 2.5 % (0-4); Hematocrit 37.9 % (37.0-47.0); Hemoglobin 12.2 g/dl (12.0-16.0); Imm Gran Abs Auto 0.02 X10*3/uL (0.00-0.03); Imm Gran Pct Auto 0.3 % (0.0-0.4); Lymphocytes Absolute Auto 2.3 X10*3/uL (1.2-4.9); Lymphocytes Percent Auto 31.2 % (20-40); Mean Corpuscular HGB Conc 32.2 g/dl (31.0-35.0); Mean Corpuscular Hemoglobin 29.4 pg (27.0-33.0); Mean Corpuscular Volume 91.3 fL (80.0-98.0); Mean Platelet Volume 11.4 fL (9.4-12.3); Monocytes Absolute Auto 0.6 X10*3/uL (0.1-1.2); Monocytes Percent Auto 7.9 % (2-11); Neutrophils Absolute Auto 4.2 x10*3/uL (2.0-8.3); Neutrophils Percent Auto 57.3 % (45-73); Platelet Count 237 X10*3/uL (160-400); Red Blood Count 4.15 X10*6/uL (4.20-5.50); Red Cell Distribution Width 12.9 % (11.0-16.0); White Blood Count 7.3 X10*3/uL (4.8-10.8)
[2023-09-26 21:11] LABS: Alanine Aminotransferase 16 U/L (0-31); Albumin Level 3.9 g/dL (3.5-5.0); Alkaline Phosphatase 145 U/L (39-117); Anion Gap 12 (12-20); Aspartate Amino Transferase 18 U/L (5-31); Bilirubin Total 0.2 mg/dL (0.0-1.0); Blood Urea Nitrogen 12 mg/dL (9-16); Calcium 9.1 mg/dL (8.4-10.2); Carbon Dioxide 27 mmol/L (22-29); Chloride 107 mmol/L (96-108); Creatinine Clr Calc Pharmacy 64.2; Estimated Glomerular Filt Rate > 60; Glucose Random 110 mg/dL (60-115); Potassium 4.3 mmol/L (3.3-5.1); Sodium 142 mmol/L (135-145); Total Protein 7.5 g/dL (6.5-8.0)
[2023-09-26 21:32] VITALS: BP 202/82; PULSE 56; RESP 14; TEMP 36.7; O2SAT 99
[2023-09-26] MEDS: Acetaminophen 325 MG TABLET 975 MG PO (21:40)
[2023-09-26] MEDS: amLODIPine Besylate 5 MG TABLET PO (21:41)
[2023-09-26] MEDS: Ibuprofen 400 MG TABLET PO (21:41)
--- NOTE | 2023-09-26 21:59 | ED.HA ---
HPI - Headache General Chief Complaint: Headache Stated Complaint: strong pain behind L eye Time Seen by Provider: 09/26/23 21:14 Source: patient and historic interpreter Mode of arrival: ambulatory History of Present Illness HPI Narrative: 67-year-old female with history of hypertension and reports a left-sided headache that feels like it is behind the eye that started since this morning, patient was able to go to sleep and has not taken any Tylenol or ibuprofen to help reduce it. She otherwise denies any visual or speech changes, denies any unilateral numbness/tingling/weakness and denies any shortness of breath or chest pain. Patient states she took her blood pressure medication as prescribed. Related Data Home Medications Medication Instructions Recorded Confirmed alcohol swabs pad topical 09/11/20 06/25/23 citalopram 20 mg tablet mg PO 09/11/20 06/25/23 Previous Rx's Medication Instructions Recorded acetaminophen 650 mg 650 mg PO Q8H PRN pain #90 tabs 10/23/20 tablet,extended release (Tylenol Arthritis Pain) nebulizers (AeroEclipse II #1 ea 04/01/21 Nebulizer) gabapentin 100 mg capsule 100 mg PO BEDTIME 30 days #30 caps 09/06/21 walker #1 ea 11/08/21 clotrimazole-betamethasone 1 1 appl topical BID PRN itching 7 03/12/22 %-0.05 % topical cream days #45 grams aspirin 81 mg tablet,delayed 81 mg PO DAILY 90 days #90 tabs 09/24/22 release albuterol sulfate 90 mcg/actuation 2 puff inhalation Q4-6H PRN 12/04/22 aerosol inhaler shortness of breath or wheezing #6.7 grams fluticasone propionate 50 2 spray intranasal DAILY #16 grams 12/04/22 mcg/actuation nasal spray,suspension (Flonase Allergy Relief) docusate sodium 100 mg capsule 100 mg PO BEDTIME #90 caps 01/27/23 omeprazole 20 mg capsule,delayed 20 mg PO DAILY #90 caps 01/27/23 release polyethylene glycol 3350 17 17 g PO DAILY #510 grams 01/27/23 gram/dose oral powder (Miralax) albuterol sulfate 2.5 mg/3 mL 2.5 mg (3 mL) inhalation Q4-6H PRN 01/29/23 (0.083 %) solution for nebulization shortness of breath or wheezing 30 days #75 mL amlodipine 5 mg tablet 5 mg PO DAILY #30 tabs 01/29/23 atorvastatin 20 mg tablet 20 mg PO BEDTIME 90 days #90 tabs 01/29/23 calcium carbonate 500 mg-vitamin 1 tab PO DAILY 90 days #90 tabs 01/29/23 D3 10 mcg (400 unit) tablet (Oyster Shell Calcium-Vitamin D3) atenolol 50 mg tablet 50 mg PO DAILY 90 days #90 tabs 01/30/23 ibuprofen 600 mg tablet 600 mg PO Q6H PRN fever or pain 01/31/23 #30 tabs buspirone 10 mg tablet 10 mg PO BID 90 days #180 tabs 04/10/23 metformin 500 mg tablet 500 mg PO BID 90 days #180 tabs 06/25/23 pioglitazone 15 mg tablet 15 mg PO DAILY 90 days #90 tabs 07/18/23 Allergies Allergy/AdvReac Type Severity Reaction Status Date / Time Penicillins Allergy Intermediate DIZZINESS, Verified 07/31/23 10:45 RASH tramadol [TRAMADOL] Allergy Intermediate NAUSEA & Verified 07/31/23 10:45 VOMITING egg [Egg] AdvReac Intermediate NAUSEA & Verified 07/31/23 10:45 VOMITING morphine AdvReac Intermediate Chest Pain Verified 07/31/23 10:45 oxycodone AdvReac Dizziness Verified 07/31/23 10:45 FANY DRINK Allergy Intermediate NAUSEA & Uncoded 07/31/23 10:45 VOMITING Review of Systems Review of Systems: Pertinent positives and negatives as stated in [facility] Past Medical History Source: nursing notes reviewed Medical History Impaired glucose regulation Dysuria Pelvic pain Burning with urination Fibroids Hiatal hernia Right shoulder pain Exposure to COVID-19 virus Mild depression TIA (transient ischemic attack) Asthma Back pain Abdominal pain Vaginal pruritus Vitamin D deficiency Left knee pain Left ankle pain Depression with anxiety Polyarthralgia Pure hypercholesterolemia Essential hypertension Surgical History History of tooth extraction History of colonoscopy History of cyst of breast History of hemicolectomy History of cholecystectomy History of appendectomy History of exploratory laparotomy Family History Family History Father No problems noted. Mother Hypertension Stroke Diabetes Brother Leptospirosis Brother No problems noted. Family/Other FH: mental illness Son Hypertension Social History Social History Household Members: Spouse Housing: Apartment Alcohol intake: never Patient Tobacco Use Status: Never used Tobacco Smoked in Last 30 Days: No e-Cigarette/Vaping Use: Never Used Second Hand Smoke Exposure: No Use of substances other than those prescribed or required for medical reasons: No Advance Directives: No Advance Directives Information Provided: No service: No Current occupational status: disabled Sexual orientation: Straight/Heterosexual Gender identity: Female Cognitive needs: Yes Hearing needs: No Vision needs: Yes Physical Exam Vital Signs: Vital Signs: Last Vital Signs Temp 98.2 F 09/26/23 22:33 Pulse 49 L 09/26/23 22:33 Resp 14 09/26/23 22:33 BP 156/76 H 09/26/23 22:33 Pulse Ox 99 09/26/23 22:33 O2 Del Method Room Air 09/26/23 22:33 BMI result Body Mass Index 33.2 VITAL SIGNS: Reviewed. GENERAL: Well developed, well nourished, in no acute distress. HEAD: Normocephalic/atraumatic EYES: PERRLA, EOMI EARS: Ext canals without abnormality NOSE: Nares patent bilateral OROPHARYNX: no oral lesions noted, posterior pharynx clear NECK: Supple, no adenopathy LUNGS: Normal breath sounds. No adventitious sounds or accessory muscle use. SpO2<99> CARDIOVASCULAR: Regular rate and rhythm without noted murmurs ABDOMEN: Soft, non-tender, non-distended with bowel sounds. MUSCULOSKELETAL: No tenderness, deformities, or effusions noted on gross inspection. EXTREMITIES: No cyanosis, clubbing or edema. SKIN: Inspection of the skin reveals no rashes NEUROLOGIC: Alert and oriented x 4. Strength and sensation to light touch were grossly intact x 4, no facial asymmetry, no pronator drift, cranial nerves 2-12 are grossly intact. Medications Administered Discontinued Medications Generic Name Dose Route Start Last Admin Trade Name Freq PRN Reason Stop Dose Admin Acetaminophen 975 mg 09/26/23 21:34 09/26/23 21:40 Acetaminophen 325 Mg Tablet PO 09/26/23 21:35 975 mg ONCE ONE Administration Amlodipine Besylate 5 mg 09/26/23 21:35 09/26/23 21:41 Amlodipine Besylate 5 Mg Tablet PO 09/26/23 21:36 5 mg ONCE ONE Administration Protocol Ibuprofen 400 mg 09/26/23 21:34 09/26/23 21:41 Ibuprofen 400 Mg Tablet PO 09/26/23 21:35 400 mg ONCE ONE Administration Medical Decision Making Medical Decision Making [facility] Narrative: 67-year-old female with history and clinical presentation, DDX: Hypertension, pupils are reactive so low clinical suspicion for acute angle glaucoma, in addition there have been no visual changes so do not suspect acute visual loss or retinal etiologies. There are no focal findings but patient is noted to be hypertensive and will receive medication for the hypertension as well as for the headache and then re-evaluate. 2257: On re-evaluation patient reports that her eye pain and headache have improved somewhat, she still endorses that vision is at baseline, on evaluation of blood pressure has improved after receiving 5 mg of Norvasc. Patient remains nonfocal. I reviewed all investigations and hematologic indices are grossly within normal limits without evidence of leukocytosis/left shift/anemia/thrombocytopenia. Chemistry indices are grossly within normal limits without demonstrated BRANDON her electrolytes/liver enzyme derangements other than a chronic stable elevation of the alkaline phosphatase. Urinalysis is consistent with prior values which demonstrate small leukocyte esterase with a few RBCs but otherwise no evidence to suggest infection. My interpretation is that patient likely has headache without focal findings and suspect that patient may have experienced a small capillary bleed that is driving some of the pain within her eye. Differential Diagnosis Differential Diagnoses: The differential diagnosis associated with the presentation includes Please see the discussion above Admission/Observation Consideration of admission/observation: Escalation of care including admission/observation considered Please see the discussion above Lab Data [facility] Lab Attestation statement: I reviewed the patient's lab results. Please see the discussion above 09/26/23 20:46 09/26/23 20:46 Labs: Lab Results 09/26/23 09/26/23 Range/Units 20:46 22:13 WBC 7.3 (4.8-10.8) X10*3/uL RBC 4.15 L (4.20-5.50) X10*6/uL Hgb 12.2 (12.0-16.0) g/dl Hct 37.9 (37.0-47.0) % MCV 91.3 (80.0-98.0) fL MCH 29.4 (27.0-33.0) pg MCHC 32.2 (31.0-35.0) g/dl RDW 12.9 (11.0-16.0) % Plt Count 237 (160-400) X10*3/uL MPV 11.4 (9.4-12.3) fL Immature Gran % (Auto) 0.3 (0.0-0.4) % Neut % (Auto) 57.3 (45-73) % Lymph % (Auto) 31.2 (20-40) % [place] % (Auto) 7.9 (2-11) % Eos % (Auto) 2.5 (0-4) % Baso % (Auto) 0.8 (0-2) % Lymph # (Auto) 2.3 (1.2-4.9) X10*3/uL [place] # (Auto) 0.6 (0.1-1.2) X10*3/uL Eos # (Auto) 0.2 (0.0-0.4) X10*3/uL Baso # (Auto) 0.1 (0.0-0.2) X10*3/uL Abs Immat Gran (auto) 0.02 (0.00-0.03) X10*3/uL Absolute Neuts (auto) 4.2 (2.0-8.3) x10*3/uL Absolute Nucleated RBC 0.000 (0.0-0.012) X10*3/uL Nucleated RBC % (auto) 0.0 (0.0-0.2) /100WBC Sodium 142 (135-145) mmol/L Potassium 4.3 (3.3-5.1) mmol/L Chloride 107 (96-108) mmol/L Carbon Dioxide 27 (22-29) mmol/L Anion Gap 12 (12-20) BUN 12 (9-16) mg/dL Creatinine 0.79 (0.5-1.4) mg/dL Estim Creat Clear Calc 64.2 Estimated GFR > 60 Random Glucose 110 (60-115) mg/dL Calcium 9.1 D (8.4-10.2) mg/dL Total Bilirubin 0.2 (0.0-1.0) mg/dL AST 18 (5-31) U/L ALT 16 (0-31) U/L Alkaline Phosphatase 145 H (39-117) U/L Total Protein 7.5 (6.5-8.0) g/dL Albumin 3.9 (3.5-5.0) g/dL Urine Color Yellow Urine Appearance Clear Urine pH 7.0 (5.0-9.0) Ur Specific [place] 1.020 (1.005-1.025) Urine Protein Negative (Neg-Trace) mg/dL Urine Glucose (UA) Negative (Negative) mg/dL Urine Ketones Negative (Negative) mg/dL Urine Blood Negative (Negative) Urine Nitrite Negative (Negative) Ur Leukocyte Esterase Small (1+) H (Negative) Urine RBC 3-5 H (0-2) /HPF Urine WBC 0-5 (0-5) /HPF Ur Squamous Epith Cells 0-2 (0-2) /HPF Urine Bacteria None Seen (None Seen) Hyaline Casts 0-2 (0-2) /LPF External Record Review External record reviewed: Outpatient record, Prior outpatient labs and Prior outpatient radiology Chronic Conditions Patient?s care impacted by: Diabetes and Hypertension Discharge Plan Discharge Clinical Impression: Headache, Eye pain Patient Disposition: Home, Self-Care Instructions: Eye Pain (ED), General Headache (ED) Additional Instructions: 1. Tylenol 1000 mg, por v?a oral, cada 6 horas seg?n sea necesario para controlar el dolor. No exceda los 4000 mg en 24 horas. 2. Ibuprofeno 400 mg, por v?a oral con leche o comida, cada 6 horas seg?n sea necesario para controlar el dolor. 3. Recomendar seguimiento con sullivan oftalm?logo as? karly con sullivan m?dico de atenci?n primaria. Regrese a la adán de emergencias si empeora o aparecen nuevos s?ntomas. 1. Tylenol 1000 mg, orally, every 6 hours as needed for pain control. Do not exceed 4000 mg within 24 hours. 2. Ibuprofen 400 mg, orally with milk or food, every 6 hours as needed for pain control. 3. Recommend follow-up with your eye doctor as well as your primary care doctor. Return to the ER for any worsening or new symptoms. Prescriptions: No Action (DME) AeroEclipse II Nebulizer [facility] See Rx Instructions .ROUTE .MEDSUPPLY Qty: 1 0RF Rx Instructions: As directed gabapentin 100 mg capsule 100 mg PO BEDTIME 30 Days Qty: 30 6RF (DME) walker [facility] See Rx Instructions .ROUTE .MEDSUPPLY Qty: 1 0RF Rx Instructions: As Directed clotrimazole-betamethasone 1-0.05 % cream 1 appl topical BID PRN (Reason: itching) 7 Days Qty: 45 0RF aspirin 81 mg tablet,delayed release (DR/EC) 81 mg PO DAILY 90 Days Qty: 90 3RF albuterol sulfate 2.5 mg /3 mL (0.083 %) solution for nebulization 2.5 mg inhalation Q4-6H PRN (Reason: shortness of breath or wheezing) 30 Days Qty: 75 2RF amlodipine 5 mg tablet 5 mg PO DAILY Qty: 30 6RF atorvastatin 20 mg tablet 20 mg PO BEDTIME 90 Days Qty: 90 1RF calcium carbonate-vitamin D3 [Oyster Shell Calcium-Vit D3] 500 mg-10 mcg (400 unit) tablet 1 tab PO DAILY 90 Days Qty: 90 2RF atenolol 50 mg tablet 50 mg PO DAILY 90 Days Qty: 90 2RF buspirone 10 mg tablet 10 mg PO BID 90 Days Qty: 180 1RF pioglitazone 15 mg tablet 15 mg PO DAILY 90 Days Qty: 90 1RF fluticasone propionate [Flonase Allergy Relief] 50 mcg/actuation spray,suspension 2 spray intranasal DAILY Qty: 16 0RF Rx Instructions: administer into each nostril albuterol sulfate 90 mcg/actuation HFA aerosol inhaler 2 puff inhalation Q4-6H PRN (Reason: shortness of breath or wheezing) Qty: 6.7 0RF ibuprofen 600 mg tablet 600 mg PO Q6H PRN (Reason: fever or pain) Qty: 30 0RF alcohol swabs Pads, Medicated topical citalopram 20 mg tablet PO metformin 500 mg tablet 500 mg PO BID 90 Days Qty: 180 1RF acetaminophen [Tylenol Arthritis Pain] 650 mg tablet extended release 650 mg PO Q8H PRN (Reason: pain) Qty: 90 4RF omeprazole 20 mg capsule,delayed release(DR/EC) 20 mg PO DAILY Qty: 90 3RF docusate sodium 100 mg capsule 100 mg PO BEDTIME Qty: 90 3RF polyethylene glycol 3350 [Miralax] 17 gram/dose powder 17 g PO DAILY Qty: 510 2RF Referrals: Aure Barrett MD [Primary Care Provider] - Print Language: English
--- OUTSIDE RECORDS SUMMARY | 2023-09-26 22:02 | XMS_ITS | Continuity of Care Document ---
Author Name Unknown Organization [facility] Address [address] [place] [address], [address] [place] [address]- Care Team Providers Care Web Design Intern Name Role Phone Dhruv Horton MD, Aure Kraft Primary Care Physician Encounter [facility] Date(s): 09/15/23 - 09/22/23 [facility] [address], [address] [place] [address]- Attending Physician: Sariah Gardner DO Referring Physician: Scarlett Guzman CNM, I Allergies, Adverse Reactions, Alerts Substance Reaction Severity Status penicillin Active morphine Active Egg Allergy Active traMADol Active Medications Estrace Vaginal Cream 0.1 mg/g = 1 Gm, Vaginally, Daily at bedtime, Daily at bedtime for 2wks, then twice a week for maintenance, # 42.5 Gm, 3 Refills, Maintenance, 09/15/23 17:43:00 EST, [facility]/pharmacy #[id number], Partial fill upon patient request if the prescription is for a schedule II... Start Date: 09/15/23 Stop Date: 11/10/23 Status: Ordered Vital Signs Most recent to oldest [Reference Range]: 1 Weight 80.3 kg (09/15/23 5:14 PM) Pulse Rate [55-90 bpm] 56 bpm (09/15/23 5:14 PM) Blood Pressure [90-138/55-84 mm Hg] 157/ 62mm Hg *H* (09/15/23 5:14 PM) Blood pressure sites Arm, right (09/15/23 5:14 PM) Dry Weight 80.3 kg (09/15/23 5:14 PM) Weight Obtained Via Standing scale (09/15/23 5:14 PM) Dry Weight Obtained Via Standing scale (09/15/23 5:14 PM) Patient Care team information Care Team Personnel Name: Dhruv Horton MD , Aure Kraft Position: Reference Physician Member Role: PCP Address: Address: [address] [place] [address]- Care Team Related Persons Name: ANGELIKA DURAN Address: home [address] [place] [address]
--- OUTSIDE RECORDS SUMMARY | 2023-09-26 22:02 | XMS_ITS | Continuity of Care Document ---
Author Name Unknown Organization [facility] Address [address] [place] [address], [address] [place] [address]- Care Team Providers Care Vehicle Technician Name Role Phone Dhruv Horton MD, Aure Kraft Primary Care Physician Encounter [facility] Date(s): 08/03/23 - 09/02/23 [facility] [address], [address] [place] [address]- Patient Care team information Care Team Personnel Name: Aure Barrett MD Position: Reference Physician Member Role: PCP Address: Address: [address] [place], [place] [address]
[2023-09-26 22:19] LABS: Appearance Urine Clear; Color Urine Yellow; Glucose Urine UA Negative (Negative); Leukocyte Esterase Urine Small (1+) (Negative); Nitrite Urine Negative (Negative); UMIC TRIGGER UACC YES; Urine Blood Negative (Negative); Urine Ketones Negative (Negative); Urine Protein Negative (Neg-Trace)
[2023-09-26 22:33] VITALS: BP 156/76; PULSE 49; RESP 14; TEMP 36.8; O2SAT 99
[2023-09-26 22:37] LABS: Bacteria Urine None Seen (None Seen); Hyaline Casts Urine 0-2 /LPF (0-2); Squamous Epithelial Cell Urine 0-2 /HPF (0-2); UACC Culture Trigger YES; WBC Urine 0-5 /HPF (0-5)
== END 2023-09-26 23:16 | disposition home or self-care (01) ==
PROVIDERS: Emergency Provider Student in an Organized Health Care Education/Training Program; PCP Internal Medicine
DX: R51.9 Headache, unspecified (principal); H57.12 Ocular pain, left eye; I10 Essential (primary) hypertension; Z79.899 Other long term (current) drug therapy
CPT/HCPCS: 36415; 80053; 81001; 85025; 87086; 99284

== ENCOUNTER 2023-10-02 09:34 | Outpatient (AMB) | payer OTHER, SELFPAY ==
[2023-10-02 09:38] VITALS: BP 128/72; PULSE 83; O2SAT 98; BMI 33.3
--- NOTE | 2023-10-02 09:38 | A.OFFVIS_ITS ---
Intake Vital Signs 10/02/23 09:38 Height 5 ft 1 in Weight 176 lb BMI 33.3 BP 128/72 Blood Pressure Location Lt brachial Position Sitting Pulse 83 Pulse Source Pulse Oximeter Pulse Oximetry (%) 98 Oxygen Delivery Method Room Air Intake Visit Reasons: [facility] G0436 Intake Note: Patient is here for an Annual Wellness Visit. Traveling Nurse Required: Yes Traveling Nurse Language: Yoruba Allergies Penicillins Allergy (Intermediate, Verified 10/02/23 10:08) DIZZINESS, RASH tramadol [TRAMADOL] Allergy (Intermediate, Verified 10/02/23 10:08) NAUSEA & VOMITING egg [Egg] Adverse Reaction (Intermediate, Verified 10/02/23 10:08) NAUSEA & VOMITING morphine Adverse Reaction (Intermediate, Verified 10/02/23 10:08) Chest Pain oxycodone Adverse Reaction (Verified 10/02/23 10:08) Dizziness FANY DRINK Allergy (Intermediate, Uncoded 10/02/23 10:08) NAUSEA & VOMITING Medication List - Last Reconciled 10/02/23 by MAGAN Caldera acetaminophen ER (Tylenol Arthritis Pain) 650 mg PO Q8H PRN albuterol sulfate 90 mcg/actuation 2 puffs inhalation Q4-6H PRN albuterol sulfate 2.5 mg (3 mL) inhalation Q4-6H PRN 30 days alcohol swabs pad topical amlodipine 5 mg PO DAILY aspirin 81 mg PO DAILY 90 days atenolol 50 mg PO DAILY 90 days atorvastatin 20 mg PO BEDTIME 90 days buspirone 10 mg PO BID 90 days calcium carbonate-vitamin D3 500 mg-10 mcg (400 unit) (Oyster Shell Calcium- Vitamin D3) 1 tab PO DAILY 90 days citalopram mg PO clotrimazole-betamethasone 1-0.05 % 1 appl topical BID PRN 7 days docusate sodium 100 mg PO BEDTIME fluticasone propionate 50 mcg/actuation (Flonase Allergy Relief) 2 sprays intranasal DAILY gabapentin 100 mg PO BEDTIME 30 days ibuprofen 600 mg PO Q6H PRN metformin 500 mg PO BID 90 days nebulizers (AeroEclipse II Nebulizer) As directed omeprazole 20 mg PO DAILY pioglitazone 15 mg PO DAILY 90 days polyethylene glycol 3350 (Miralax) 17 grams PO DAILY walker As Directed HPI SWV [id number] HPI Details Patient is a 67-year-old female who presents today for subsequent wellness visit. Patient of Dr. Bartlett. Patient is up-to-date with her health preventative screenings and immunizations. Mammogram 06/2023 which was normal. Bone density screen 10/2022 with osteopenia. Up-to-date with colonoscopy. Nikolai of care was reviewed with the patient and she was provided with a screening schedule. End of life planning was discussed with the patient and she was provided with healthcare proxy and MOLST forms. Patient is a Yoruba- speaking and GABE Campos was helping with interpretation. [facility] Medical History (Updated 10/02/23 @ 10:35 by MAGAN Caldera) COVID-19 Impaired glucose regulation Dysuria Pelvic pain Burning with urination Fibroids Hiatal hernia Right shoulder pain Exposure to COVID-19 virus Mild depression TIA (transient ischemic attack) Asthma Back pain Abdominal pain Vaginal pruritus Vitamin D deficiency Left knee pain Left ankle pain Depression with anxiety Polyarthralgia Pure hypercholesterolemia Essential hypertension Surgical History History of tooth extraction History of colonoscopy History of cyst of breast History of hemicolectomy History of cholecystectomy History of appendectomy History of exploratory laparotomy Family History Father No problems noted. Mother Hypertension Stroke Diabetes Brother Leptospirosis Brother No problems noted. Family/Other FH: mental illness Son Hypertension Social History Household Members: Spouse Housing: Apartment Alcohol intake: never Patient Tobacco Use Status: Never used Tobacco e-Cigarette/Vaping Use: Never Used Second Hand Smoke Exposure: No service: No Current occupational status: disabled Sexual orientation: Straight/Heterosexual Gender identity: Female Cognitive needs: Yes Hearing needs: No Vision needs: Yes Questionnaire Medicare Wellness Checkup What [age] your age?: 65-69 (66) What gender do you identify with?: female During the past 4 weeks, how much have you been bothered by emotional problems such as feeling anxious, depressed, irritable, sad or downhearted, and blue?: extremely During the past 4 weeks, has your physical & emotional health limited your social activities with family, friends, neighbors, or groups?: slightly During the past 4 weeks, how much bodily pain have you generally had?: moderate pain During the past 4 weeks, was someone available to help you if you needed & wanted help?: yes, quite a bit During the past 4 weeks, what was the hardest physical activity you could do for at least 2 minutes?: light Can you get to places out of walking distance without help? (For eg., can you travel alone on buses, taxis or drive your car?): Yes Can you go shopping for groceries or clothes without someone's help?: Yes Can you prepare your own meals?: Yes Can you do your housework without help?: No Because of any health problems, do you need the help of another person with your personal care needs such as eating, bathing, dressing or getting around the house?: No Can you handle your own money without help?: Yes During the past 4 weeks, how would you rate your health in general?: fair During the past 4 weeks how have things been going for you?: good & bad parts about equal Are you having difficulties driving your car?: not applicable, I don't use a car Do you always fasten your seat belt when you are in a car?: yes, usually During past 4 weeks, have you been bothered by the following: never: Falling or dizzy when standing up, Sexual problems?, Trouble eating well?, Teeth or denture problems?, Problems using the telephone? and Tiredness or fatigue? Have you fallen 2 or more times in the past year?: No Are you a smoker?: no During the past 4 weeks, how many drinks of wine, beer, or other alcoholic beverages did you have?: no alcohol at all Do you exercise for about 20 minutes 3 or more times a week?: no, I usually do not exercise this much How often do you have trouble taking medicines the way you have been told to take them?: I always take medicine as prescribed How confident are you that you can control & manage most of your health problems?: very confident What is your race?: or origin or descent Mini Mental State Exam (MMSE) Orientation What is the (year) (season) (date) (day) (month)?: year, season, date, day and month Score Score: 5 Activity of Daily Living Bathing - sponge bath, tub bath or shower: receives no assistance (gets in/out by self, if usual bathing means Dressing - getting clothes from closets & drawers, including inner/outer garments & fasteners.: gets clothes & gets completely dressed without help Toileting - going to the 'toilet room' for urine/bowel elimination & cleaning self/arranging clothes: goes to toilet room, cleans self, arranges clothes without help Transfer: moves in & out of bed and chair without help (may use support object) Continence: controls urination/bowel movements completely by self Feeding: feeds self without help Total Score: 0 Information obtained from: patient Using telephone: independent Traveling: independent Shopping: independent Preparing meals: independent Housework: needs assistance Taking medicine: independent Managing money: independent PHQ-9 Over the last 2 weeks, how often have you been bothered by any of the following problems? 1. Little interest or pleasure in doing things: several days 2. Feeling down, depressed, or hopeless: several days 3. Trouble falling or staying asleep, or sleeping too much: nearly every day 4. Feeling tired or having little energy: more than half the days 5. Poor appetite or overeating: not at all 6. Feeling bad about yourself - or that you are a failure or have let yourself or your family down: not at all 7. Trouble concentrating on things, such as reading the newspaper or watching television: not at all 8. Moving or speaking so slowly that other people could have noticed. Or the opposite - being so fidgety or restless that you have been moving around a lot more than usual: not at all 9. Thoughts that you would be better off or of hurting yourself in some way: not at all Total score: 7 Depression Screening Interpretation: Negative Depression Screening Done: Yes 12762 - PHQ-9 Billing: Yes Source: Developed by Drs. Dagoberto Mercer, Adry Valentin, Néstor Garcia and colleagues, with an educational zheng from [employer]. Physical Exam Vital Signs: Last Vital Signs Pulse 83 10/02/23 09:38 BP 128/72 10/02/23 09:38 Pulse Ox 98 10/02/23 09:38 Oxygen Delivery Method Room Air 10/02/23 09:38 BMI result Body Mass Index 33.3 Const General: cooperative and no acute distress Orientation/consciousness: patient oriented x3 HEENT Other: Whisper test: pass Neuro Other: Balance: Normal Get up and walk: able to Romberg: negative Tandem gait: unable to General: patient oriented x3 Assessment & Plan Assessment & Plan (1) Adult general medical exam: Code(s): Z00.00 - Encounter for general adult medical examination without abnormal findi ngs Plan: Repeat in 1 year (2) Mild depression: Code(s): F32.0 - Major depressive disorder, single episode, mild Plan: Continue current treatment (3) Asthma: Code(s): J45.909 - Unspecified asthma, uncomplicated Plan: Stable (4) Pure hypercholesterolemia: Code(s): E78.00 - Pure hypercholesterolemia, unspecified Plan: Continue current treatment low-cholesterol diet (5) Essential hypertension: Code(s): I10 - Essential (primary) hypertension Plan: Continue current treatment Reinforced low-sodium diet and exercise as tolerated (6) Diabetes mellitus: Code(s): E11.9 - Type 2 diabetes mellitus without complications Qualifiers: Diabetes mellitus type: type 2 Diabetes mellitus terminal makeup operator insulin use: without snf use Diabetes mellitus complication status: without complication Qualified Code(s): E11.9 - Type 2 diabetes mellitus without complications Plan: A1c 7.3 06/2023 Continue current treatment Reinforced low carbohydrate diet (7) GERD (gastroesophageal reflux disease): Code(s): K21.9 - Gastro-esophageal reflux disease without esophagitis Qualifiers: Esophagitis presence: without esophagitis Qualified Code(s): K21.9 - Gastro-esophageal reflux disease without esophagitis Plan: Continue current treatment Encouraged to avoid GERD trigger foods Continue to follow-up with [facility] (8) Osteopenia: Code(s): M85.80 - Other specified disorders of bone density and structure, unspecified site Plan: Continue calcium with vitamin-D Quality Reporting (2019) Depression/Bipolar (159/160/161/177) PHQ-9: Total score: 7 Coding Level of Care Code Medicare Subsequent (G0439) Diagnoses Adult general medical exam Z00.00 Mild depression F32.0 Asthma J45.909 Pure hypercholesterolemia E78.00 Essential hypertension I10 Type 2 diabetes mellitus without complication, without long-term current use of insulin E11.9 Diabetes mellitus type: type 2 Diabetes mellitus terminal makeup operator insulin use: without terminal makeup operator use Diabetes mellitus complication status: without complication Gastroesophageal reflux disease without esophagitis K21.9 Esophagitis presence: without esophagitis Osteopenia M85.80 CPT Codes Advance Care Planning - Time spent: 1-15 minutes, not on file ([id number]) Advance Care Planning Date of discussion: 10/02/23 Who was present: pt and supervisor winding department Forms completed: None Time spent: 1-15 minutes, not on file Actual minutes spent: 3 Did not discuss due to Cultural/Spiritual beliefs: No
== END 2023-10-02 10:27 | disposition home or self-care (01) ==
PROVIDERS: Visit Provider Nurse Practitioner Family
DX: Z00.00 Encounter for general adult medical examination without abnormal findings (principal); F32.0 Major depressive disorder, single episode, mild; E11.9 Type 2 diabetes mellitus without complications; J45.909 Unspecified asthma, uncomplicated; E78.00 Pure hypercholesterolemia, unspecified; I10 Essential (primary) hypertension; K21.9 Gastro-esophageal reflux disease without esophagitis; M85.80 Other specified disorders of bone density and structure, unspecified site
CPT/HCPCS: 1124F; G0439

== ENCOUNTER 2023-10-16 10:37 | Emergency (ER) | payer OTHER, SELFPAY ==
--- NOTE | ~2023-10-16 | CT_ITS ---
EXAMINATION: CT ABDOMEN AND PELVIS WITH CONTRAST CLINICAL INFORMATION: Left lower quadrant pain COMPARISON: CT abdomen and pelvis 06/20/2023. TECHNIQUE: Multidetector volumetric images were obtained from the superior aspect of the liver through the pubic symphysis following administration 85 mL of Omnipaque 350 intravenous contrast. Sagittal and coronal reformatted images were obtained on the technologist's workstation. Oral contrast: No This CT examination was performed using dose optimization techniques as appropriate, variously including the following: *Automated exposure control *Adjustment of mA and/or kV according to patient size (this includes techniques or standardized protocols for targeted exams where dose is matched to indication/reason for exam; i.e. extremities or head) *Use of iterative reconstruction technique DLP: 713 mGy-cm FINDINGS: LUNG BASES: The visualized lung bases are unremarkable. LIVER, GALLBLADDER, AND BILIARY TREE: The liver is normal in size, shape, and diffusely hypoattenuated. No focal hepatic lesion or biliary ductal dilatation is present. The gallbladder has been surgically removed. PANCREAS: Unremarkable. SPLEEN: Unremarkable. ADRENAL GLANDS: Unremarkable. KIDNEYS AND URETERS: The kidneys are normal in size, shape, and attenuation. No hydronephrosis, hydroureter, or calculi seen. No perinephric stranding. BLADDER: Unremarkable. GASTROINTESTINAL TRACT: There is scattered stool, diverticuli and gas seen throughout the colon without any significant distention or diverticulitis.. The small bowel loops are normal caliber. Appendix has been surgically removed. There is no free air or free fluid. ABDOMINAL WALL: No significant hernia is appreciated. LYMPH NODES: Normal. VASCULAR: Unremarkable. PELVIC VISCERA: The uterus is anteverted with a left fundal hypodense mass measuring 4.0 x 3.2 cm most suggestive of a small fibroid. OSSEOUS STRUCTURES: Unremarkable. CT/CT abdomen pelvis w IV con IMPRESSION: 1. No acute intra-abdominal process seen. 2. Diffuse hepatic steatosis without focal lesion. 3. Colonic diverticulosis without diverticulitis., 4. Stable uterine fundal fibroid. This could be likely cause of left lower quadrant pain. Fleischner guidelines were followed.
--- NOTE | 2023-10-16 10:58 | ED.GENADULT ---
HPI - General Adult General Chief complaint: General Medical Stated complaint: Swollen Stomach Discomfort Time Seen by Provider: 10/16/23 13:36 Source: patient Limitations: language barrier (hx taken in slovak) History of Present Illness HPI narrative: 77 years old with history of diabetes, hypertension, colon cancer status post bowel resection, appendectomy and cholecystectomy, presents emergency room for epigastric pain. The patient reports that the pain started today and that is similar to her prior presentation of GERD. Patient reports that pain started this morning and she has not tried to eat anything since. Patient reports normal bowel movements, denied melena or bloody stools. Reports dysuria that started today. Denies headache, blurry vision or slurred speech No ches pain, cough or shortness of breath. Related Data Home Medications Medication Instructions Recorded Confirmed alcohol swabs pad topical 09/11/20 10/02/23 citalopram 20 mg tablet mg PO 09/11/20 10/02/23 Previous Rx's Medication Instructions Recorded acetaminophen 650 mg 650 mg PO Q8H PRN pain #90 tabs 10/23/20 tablet,extended release (Tylenol Arthritis Pain) nebulizers (AeroEclipse II #1 ea 04/01/21 Nebulizer) gabapentin 100 mg capsule 100 mg PO BEDTIME 30 days #30 caps 09/06/21 walker #1 ea 11/08/21 clotrimazole-betamethasone 1 1 appl topical BID PRN itching 7 03/12/22 %-0.05 % topical cream days #45 grams aspirin 81 mg tablet,delayed 81 mg PO DAILY 90 days #90 tabs 09/24/22 release albuterol sulfate 90 mcg/actuation 2 puff inhalation Q4-6H PRN 12/04/22 aerosol inhaler shortness of breath or wheezing #6.7 grams fluticasone propionate 50 2 spray intranasal DAILY #16 grams 12/04/22 mcg/actuation nasal spray,suspension (Flonase Allergy Relief) docusate sodium 100 mg capsule 100 mg PO BEDTIME #90 caps 01/27/23 omeprazole 20 mg capsule,delayed 20 mg PO DAILY #90 caps 01/27/23 release polyethylene glycol 3350 17 17 g PO DAILY #510 grams 01/27/23 gram/dose oral powder (Miralax) albuterol sulfate 2.5 mg/3 mL 2.5 mg (3 mL) inhalation Q4-6H PRN 04/13/23 (0.083 %) solution for nebulization shortness of breath or wheezing 30 days #75 mL amlodipine 5 mg tablet 5 mg PO DAILY #30 tabs 01/29/23 atorvastatin 20 mg tablet 20 mg PO BEDTIME 90 days #90 tabs 01/29/23 calcium carbonate 500 mg-vitamin 1 tab PO DAILY 90 days #90 tabs 01/29/23 D3 10 mcg (400 unit) tablet (Oyster Shell Calcium-Vitamin D3) atenolol 50 mg tablet 50 mg PO DAILY 90 days #90 tabs 01/30/23 ibuprofen 600 mg tablet 600 mg PO Q6H PRN fever or pain 01/31/23 #30 tabs buspirone 10 mg tablet 10 mg PO BID 90 days #180 tabs 04/10/23 metformin 500 mg tablet 500 mg PO BID 90 days #180 tabs 06/25/23 pioglitazone 15 mg tablet 15 mg PO DAILY 90 days #90 tabs 07/18/23 ondansetron HCl 4 mg tablet 4 mg PO Q8-12H PRN nausea and 10/16/23 vomiting #14 tabs Allergies Allergy/AdvReac Type Severity Reaction Status Date / Time Penicillins Allergy Intermediate DIZZINESS, Verified 10/16/23 10:59 RASH tramadol [TRAMADOL] Allergy Intermediate NAUSEA & Verified 10/16/23 10:59 VOMITING egg [Egg] AdvReac Intermediate NAUSEA & Verified 10/16/23 10:59 VOMITING morphine AdvReac Intermediate Chest Pain Verified 10/16/23 10:59 oxycodone AdvReac Dizziness Verified 10/16/23 10:59 FANY DRINK Allergy Intermediate NAUSEA & Uncoded 10/16/23 10:59 VOMITING Review of Systems Review of Systems: Yes all other systems are reviewed and are negative [facility] Past Medical History Medical History (Updated 10/16/23 @ 16:21 by Gustavo Olivo MD) COVID-19 Impaired glucose regulation Dysuria Pelvic pain Burning with urination Fibroids Hiatal hernia Right shoulder pain Exposure to COVID-19 virus Mild depression TIA (transient ischemic attack) Asthma Back pain Abdominal pain Vaginal pruritus Vitamin D deficiency Left knee pain Left ankle pain Depression with anxiety Polyarthralgia Pure hypercholesterolemia Essential hypertension Surgical History History of tooth extraction History of colonoscopy History of cyst of breast History of hemicolectomy History of cholecystectomy History of appendectomy History of exploratory laparotomy Family History Family History Father No problems noted. Mother Hypertension Stroke Diabetes Brother Leptospirosis Brother No problems noted. Family/Other FH: mental illness Son Hypertension Social History Social History Household Members: Spouse Housing: Apartment Alcohol intake: never Patient Tobacco Use Status: Never used Tobacco e-Cigarette/Vaping Use: Never Used Second Hand Smoke Exposure: No Advance Directives: No Advance Directives Information Provided: No service: No Current occupational status: disabled Sexual orientation: Straight/Heterosexual Gender identity: Female Cognitive needs: Yes Hearing needs: No Vision needs: Yes Physical Exam ED Vital Signs: Vital Signs - 24 hr 10/16/23 11:00 Temperature 97 F Pulse Rate 65 Respiratory Rate 18 Blood Pressure 152/78 H Pulse Oximetry 100 Oxygen Delivery Method Room Air BMI result Body Mass Index 31.4 General: Alert, Not in Distress Skin: No rash, warm HEENT: Atraumatic, No Exudate or Pharyngeal Erythema Resp: Normal Breath sounds bilaterally Cardio: Regular rate and Rhythm, Normal S1, S2 ABD: Abd tender in epigastrium, , no guarding or rebound distended. hyperactive Bowel sounds. : No cva tenderness Neuro: Alert, oriented x4, PERRL Strenght 5/5 on all extremities Sensation is preserved in both lower and upper extremities Index to nose: normal Cranial Nerves II-XII grossly intact No dysarthria, or aphasia No neglet. Visual mazariegos are normal bilaterally Psych: Cooperative, NO SI Course Course Course Narrative: This is a rapid medical exam: Additional HPI, ROS, PE not included below will be deferred to primary provider. Patient is a 67-year-old Georgian speaking female with history of HTN, DM, appendicitis, tumor of colon, hypercholesterolemia, polyarthralgia, asthma, TIA, hiatal hernia presenting to the ED with complaint of upper abdominal pain and distention since this morning. Reports history of obstruction but states has been having normal BMs, last BM this morning. States pain was present when she woke this morning, was able to drink coffee and eat a hash brown without change. Reports mild nausea but denies vomiting. Also complains of dizziness and burning with urination. Plan: EKG, labs, UA Reevaluation(s) Reevaluation #1: 1. No acute intra-abdominal process seen. 2. Diffuse hepatic steatosis without focal lesion. 3. Colonic diverticulosis without diverticulitis., 4. Stable uterine fundal fibroid. This could be likely cause of left lower quadrant pain. Fleischner guidelines were followed. CT abdomen unremarkable for acute findings. At this time I do not think patient requires observation or admission. Will discharge home with recommendation to continue oral medication and to take Zofran as needed. Will recommend primary care follow-up. Time: 16:19 Medications Administered Discontinued Medications Generic Name Dose Route Start Last Admin Trade Name Freq PRN Reason Stop Dose Admin Al Hydroxide/Mg Hydroxide 30 ml 10/16/23 13:44 10/16/23 13:58 Magnesium Hydrox/Alum Hydrox 30 Ml Oral.Susp PO 10/16/23 13:45 30 ml ONCE ONE Administration Famotidine 20 mg 10/16/23 13:44 10/16/23 13:58 Famotidine/Pf 20 Mg/2 Ml Vial IVPUSH 10/16/23 13:45 20 mg ONCE ONE Administration Sodium Chloride 500 mls @ 999 mls/hr 10/16/23 13:45 10/16/23 14:01 Ns IV 10/16/23 14:15 999 mls/hr .Q31M BAILEE Administration Iohexol 100 ml 10/16/23 15:00 10/16/23 15:01 Iohexol 350 Mg/Ml 100 Ml Infus..Btl IV 10/16/23 15:01 85 ml ONCE ONE Administration Medical Decision Making Medical Decision Making [facility] Narrative: For patient presented to the emergency room for epigastric pain, although patient has a history of GERD, IBS and symptoms may be consistent with this she also had multiple intra-abdominal surgery and abdomen is distended therefore as below cannot be ruled out. At this time initial blood work done in triage showed normal CBC and mildly elevated alkaline phosphatase which is however stable. Plan Famotidine IV, maalox IV fluids CT abdomen with contrast UA Lab Data [facility] Lab Attestation statement: I reviewed the patient's lab results. 10/16/23 11:15 10/16/23 11:15 Labs: Lab Results 10/16/23 Range/Units 11:15 WBC 7.8 (4.8-10.8) X10*3/uL RBC 4.20 (4.20-5.50) X10*6/uL Hgb 12.4 (12.0-16.0) g/dl Hct 37.9 (37.0-47.0) % MCV 90.2 (80.0-98.0) fL MCH 29.5 (27.0-33.0) pg MCHC 32.7 (31.0-35.0) g/dl RDW 12.7 (11.0-16.0) % Plt Count 253 (160-400) X10*3/uL MPV 10.9 (9.4-12.3) fL Immature Gran % (Auto) 0.4 (0.0-0.4) % Neut % (Auto) 70.3 (45-73) % Lymph % (Auto) 20.0 (20-40) % [place] % (Auto) 6.6 (2-11) % Eos % (Auto) 1.9 (0-4) % Baso % (Auto) 0.8 (0-2) % Lymph # (Auto) 1.6 (1.2-4.9) X10*3/uL [place] # (Auto) 0.5 (0.1-1.2) X10*3/uL Eos # (Auto) 0.2 (0.0-0.4) X10*3/uL Baso # (Auto) 0.1 (0.0-0.2) X10*3/uL Abs Immat Gran (auto) 0.03 (0.00-0.03) X10*3/uL Absolute Neuts (auto) 5.5 (2.0-8.3) x10*3/uL Absolute Nucleated RBC 0.000 (0.0-0.012) X10*3/uL Nucleated RBC % (auto) 0.0 (0.0-0.2) /100WBC PT 11.3 (11.1-13.3) SEC INR 0.9 (0.9-1.1) Sodium 140 (135-145) mmol/L Potassium 4.3 (3.3-5.1) mmol/L Chloride 105 (96-108) mmol/L Carbon Dioxide 28 (22-29) mmol/L Anion Gap 11 L (12-20) BUN 14 (9-16) mg/dL Creatinine 0.88 (0.5-1.4) mg/dL Estim Creat Clear Calc 60.5 Estimated GFR > 60 Random Glucose 217 H (60-115) mg/dL Calcium 9.2 (8.4-10.2) mg/dL Total Bilirubin 0.3 (0.0-1.0) mg/dL AST 20 (5-31) U/L ALT 18 (0-31) U/L Alkaline Phosphatase 152 H (39-117) U/L Troponin I High Sens < 2.7 (<3.5-17.0) ng/L Total Protein 7.1 (6.5-8.0) g/dL Albumin 3.8 (3.5-5.0) g/dL Lipase 32 (8-78) U/L Discharge Plan Discharge Clinical Impression: GERD (gastroesophageal reflux disease) Patient Disposition: Home, Self-Care Additional Instructions: You were seen in the emergency room for abdominal pain. Your lab work showed mild elevation of liver enzymes secondary to fatty liver which was confirmed at CT scan. Otherwise her CT scan was unremarkable and your symptoms are likely secondary to esophageal reflux. Continue taking no medication. At home you can take Zofran 4 mg up to 3 times a day for nausea. Follow-up with your primary care physician in a few days. Return to emergency room with symptoms worsen. Prescriptions: New ondansetron HCl 4 mg tablet 4 mg PO Q8-12H PRN (Reason: nausea and vomiting) Qty: 14 0RF No Action (DME) AeroEclipse II Nebulizer [facility] See Rx Instructions .ROUTE .MEDSUPPLY Qty: 1 0RF Rx Instructions: As directed gabapentin 100 mg capsule 100 mg PO BEDTIME 30 Days Qty: 30 6RF (DME) walker [facility] See Rx Instructions .ROUTE .MEDSUPPLY Qty: 1 0RF Rx Instructions: As Directed clotrimazole-betamethasone 1-0.05 % cream 1 appl topical BID PRN (Reason: itching) 7 Days Qty: 45 0RF aspirin 81 mg tablet,delayed release (DR/EC) 81 mg PO DAILY 90 Days Qty: 90 3RF albuterol sulfate 2.5 mg /3 mL (0.083 %) solution for nebulization 2.5 mg inhalation Q4-6H PRN (Reason: shortness of breath or wheezing) 30 Days Qty: 75 2RF amlodipine 5 mg tablet 5 mg PO DAILY Qty: 30 6RF atorvastatin 20 mg tablet 20 mg PO BEDTIME 90 Days Qty: 90 1RF calcium carbonate-vitamin D3 [Oyster Shell Calcium-Vit D3] 500 mg-10 mcg (400 unit) tablet 1 tab PO DAILY 90 Days Qty: 90 2RF atenolol 50 mg tablet 50 mg PO DAILY 90 Days Qty: 90 2RF buspirone 10 mg tablet 10 mg PO BID 90 Days Qty: 180 1RF pioglitazone 15 mg tablet 15 mg PO DAILY 90 Days Qty: 90 1RF fluticasone propionate [Flonase Allergy Relief] 50 mcg/actuation spray,suspension 2 spray intranasal DAILY Qty: 16 0RF Rx Instructions: administer into each nostril albuterol sulfate 90 mcg/actuation HFA aerosol inhaler 2 puff inhalation Q4-6H PRN (Reason: shortness of breath or wheezing) Qty: 6.7 0RF ibuprofen 600 mg tablet 600 mg PO Q6H PRN (Reason: fever or pain) Qty: 30 0RF alcohol swabs Pads, Medicated topical citalopram 20 mg tablet PO metformin 500 mg tablet 500 mg PO BID 90 Days Qty: 180 1RF acetaminophen [Tylenol Arthritis Pain] 650 mg tablet extended release 650 mg PO Q8H PRN (Reason: pain) Qty: 90 4RF omeprazole 20 mg capsule,delayed release(DR/EC) 20 mg PO DAILY Qty: 90 3RF docusate sodium 100 mg capsule 100 mg PO BEDTIME Qty: 90 3RF polyethylene glycol 3350 [Miralax] 17 gram/dose powder 17 g PO DAILY Qty: 510 2RF
[2023-10-16 11:00] VITALS: BP 152/78; PULSE 65; RESP 18; TEMP 36.1; O2SAT 100; BMI 31.4
--- NOTE | 2023-10-16 11:06 | ECG_ITS ---
Test Reason : abd pain Blood Pressure : / mmHG Vent. Rate : 051 BPM Atrial Rate : 051 BPM P-R Int : 150 ms QRS Dur : 092 ms QT Int : 444 ms P-R-T Axes : 064 -22 034 degrees QTc Int : 409 ms Sinus bradycardia Moderate voltage criteria for LVH, may be normal variant ( R in aVL , [place] product ) Borderline ECG When compared with ECG of 20-JUN-2023 14:28, Nonspecific T wave abnormality, improved in Lateral leads Referred By: Mariajose Calvillo Electronically Signed By:TAY BENOIT
[2023-10-16 11:19] LABS: MANUAL DIFF FLAG NO
[2023-10-16 11:24] LABS: Basophils Absolute Auto 0.1 X10*3/uL (0.0-0.2); Basophils Percent Auto 0.8 % (0-2); Eosinophils Absolute Auto 0.2 X10*3/uL (0.0-0.4); Eosinophils Percent Auto 1.9 % (0-4); Hematocrit 37.9 % (37.0-47.0); Hemoglobin 12.4 g/dl (12.0-16.0); Imm Gran Abs Auto 0.03 X10*3/uL (0.00-0.03); Imm Gran Pct Auto 0.4 % (0.0-0.4); Lymphocytes Absolute Auto 1.6 X10*3/uL (1.2-4.9); Mean Corpuscular HGB Conc 32.7 g/dl (31.0-35.0); Mean Corpuscular Hemoglobin 29.5 pg (27.0-33.0); Mean Corpuscular Volume 90.2 fL (80.0-98.0); Mean Platelet Volume 10.9 fL (9.4-12.3); Monocytes Absolute Auto 0.5 X10*3/uL (0.1-1.2); Monocytes Percent Auto 6.6 % (2-11); Neutrophils Absolute Auto 5.5 x10*3/uL (2.0-8.3); Neutrophils Percent Auto 70.3 % (45-73); Platelet Count 253 X10*3/uL (160-400); Red Cell Distribution Width 12.7 % (11.0-16.0); White Blood Count 7.8 X10*3/uL (4.8-10.8)
[2023-10-16 11:26] LABS: INTERNATIONAL NORM RATIO 0.9 (0.9-1.1); Prothrombin Time 11.3 SEC (11.1-13.3)
[2023-10-16 11:36] LABS: Alanine Aminotransferase 18 U/L (0-31); Albumin Level 3.8 g/dL (3.5-5.0); Alkaline Phosphatase 152 U/L (39-117); Anion Gap 11 (12-20); Aspartate Amino Transferase 20 U/L (5-31); Bilirubin Total 0.3 mg/dL (0.0-1.0); Blood Urea Nitrogen 14 mg/dL (9-16); Calcium 9.2 mg/dL (8.4-10.2); Carbon Dioxide 28 mmol/L (22-29); Chloride 105 mmol/L (96-108); Creatinine Clr Calc Pharmacy 60.5; Estimated Glomerular Filt Rate > 60; Glucose Random 217 mg/dL (60-115); Potassium 4.3 mmol/L (3.3-5.1); Sodium 140 mmol/L (135-145); Total Protein 7.1 g/dL (6.5-8.0)
[2023-10-16 11:48] LABS: Troponin-I High Sensitivity < 2.7 ng/L (<3.5-17.0)
[2023-10-16] MEDS: Magnesium Hydrox/Alum Hydrox 30 ML ORAL.SUSP PO (13:58)
[2023-10-16] MEDS: Famotidine/PF 20 MG/2 ML VIAL IVPUSH (13:58)
[2023-10-16] MEDS: 0.9 % Sodium Chloride 500 ML 999 ML IV (14:01)
--- OUTSIDE RECORDS SUMMARY | 2023-10-16 14:05 | XMS_ITS | Continuity of Care Document ---
Author Name Unknown Organization [facility] [employer] [facility] Address [address] [place] [address], [address]t [place] [address]- Care Team Providers Care Supply Service Worker Name Role Phone Dhruv Horton MD, Aure Kraft Primary Care Phys[id number] Date(s): 09/15/23 - 10/15/23 [facility] [address] [place] [address], [address] [place] [address]- Attending Physician: Alonso Bear Admitting Physician: AdmtrAlonso Referring Physician: AdmtrAlonso Allergies, Adverse Reactions, Alerts Substance Reaction Severity Status penicillin Active morphine Active Egg Allergy Active traMADol Active Medications Estrace Vaginal Cream 0.1 mg/g = 1 Gm, Vaginally, Daily at bedtime, Daily at bedtime for 2wks, then twice a week for maintenance, # 42.5 Gm, 3 Refills, Maintenance, 09/15/23 17:43:00 EST, [facility]/pharmacy #[id number], Partial fill upon patient request if the prescription is for a schedule II... Start Date: 09/15/23 Stop Date: 11/10/23 Status: Ordered Patient Care team information Care Team Personnel Name: Aure Barrett MD Position: Reference Physician Member Role: PCP Address: Address: [address] [place] [address]- Care Team Related Persons Name: ANGELIKA DURAN Address: home [address] [place] [address]
[2023-10-16 14:13] LABS: Lipase 32 U/L (8-78)
[2023-10-16] MEDS: iohexoL 350 MG/ML 100 ML INFUS..BTL IV (15:01)
[2023-10-16 16:25] VITALS: BP 148/78; PULSE 66; RESP 19; TEMP 36.6; O2SAT 99
== END 2023-10-16 16:36 | disposition home or self-care (01) ==
PROVIDERS: Physician Assistant; Registered Nurse Emergency; Emergency Provider Student in an Organized Health Care Education/Training Program; PCP Internal Medicine
DX: K21.9 Gastro-esophageal reflux disease without esophagitis (principal); R10.32 Left lower quadrant pain; I10 Essential (primary) hypertension; E11.9 Type 2 diabetes mellitus without complications; Z79.899 Other long term (current) drug therapy; Z85.038 Personal history of other malignant neoplasm of large intestine
CPT/HCPCS: 36415; 74177; 80053; 83690; 84484; 85025; 85610; 93005; 96374; 99284; Q9967

== ENCOUNTER → 2023-10-16 11:06 | Outpatient (BNV) | payer OTHER, SELFPAY | PROVIDERS: PCP Internal Medicine; Visit Provider Internal Medicine | DX: R00.1 Bradycardia, unspecified (principal) | CPT/HCPCS: 93010 ==

== ENCOUNTER 2023-10-29 13:23 | Outpatient (AMB) | payer OTHER, SELFPAY ==
[2023-10-29 13:35] VITALS: BP 142/78; BMI 33.3
--- NOTE | 2023-10-29 13:35 | A.OFFVIS_ITS ---
Intake Vital Signs 10/29/23 13:35 Height 5 ft 1 in Weight 176 lb BMI 33.3 BP 142/78 H Intake Visit Reasons: Vaginal odor/pelvic pain Intake Note: having vaginal odor and pain in pelvis Iron Melter Required: Yes Iron Melter Language: Train Electronic Technician Name: Iraida Rehman Information Interpreted: non-clinical & clinical Cage Loader: Cage Loader Present (Iraida) Allergies Penicillins Allergy (Intermediate, Verified 10/29/23 13:43) DIZZINESS, RASH tramadol [TRAMADOL] Allergy (Intermediate, Verified 10/29/23 13:43) NAUSEA & VOMITING egg [Egg] Adverse Reaction (Intermediate, Verified 10/29/23 13:43) NAUSEA & VOMITING morphine Adverse Reaction (Intermediate, Verified 10/29/23 13:43) Chest Pain oxycodone Adverse Reaction (Verified 10/29/23 13:43) Dizziness FANY DRINK Allergy (Intermediate, Uncoded 10/29/23 13:43) NAUSEA & VOMITING Is last menstrual period known: No Post menopausal: Yes Patient : No HPI HPI Comments History of Present Illness Details Patient is here today with complaints of vaginal odor and left lower quadrant tenderness. She admits to recent diarrhea. She denies any frequency of urination, some burning with urination noted. She has a history of diverticulosis. She denies any recent intimacy with her . Patient was referred to [facility] for a consult due to chronic pelvic pain, history of fibroid. Consultation report that found patient informed me that she was told there was no indication at this time to have surgery. No other followups for planned from [facility]. [facility] Medical History COVID-19 Impaired glucose regulation Dysuria Pelvic pain Burning with urination Fibroids Hiatal hernia Right shoulder pain Exposure to COVID-19 virus Mild depression TIA (transient ischemic attack) Asthma Back pain Abdominal pain Vaginal pruritus Vitamin D deficiency Left knee pain Left ankle pain Depression with anxiety Polyarthralgia Pure hypercholesterolemia Essential hypertension Surgical History History of tooth extraction History of colonoscopy History of cyst of breast History of hemicolectomy History of cholecystectomy History of appendectomy History of exploratory laparotomy Family History Father No problems noted. Mother Hypertension Stroke Diabetes Brother Leptospirosis Brother No problems noted. Family/Other FH: mental illness Son Hypertension Social History Household Members: Spouse Housing: Apartment Alcohol intake: never Patient Tobacco Use Status: Never used Tobacco e-Cigarette/Vaping Use: Never Used Second Hand Smoke Exposure: No Patient : No service: No Current occupational status: disabled Sexual orientation: Straight/Heterosexual Gender identity: Female Cognitive needs: Yes Hearing needs: No Vision needs: Yes Female Reproductive History Menstrual Age of Menarche: 9 control method: none Total pregnancies: 2 Full term: 2 Number of Living Children: 2 Date of last pap smear: 05/01/21 (negative) Review of Systems Const All systems reviewed & are unremarkable except as noted in HPI and below Physical Exam Vital Signs: Last Vital Signs BP 142/78 H 10/29/23 13:35 BMI result Body Mass Index 33.3 Const General: cooperative, healthy appearing and no acute distress Orientation/consciousness: patient oriented x3 GI Inspection: Yes normal to inspection Palpation (GI): Soft to palpation and Other GI palpation findings present (Nontender) Rectal Exam - Female: visual inspection normal General: Yes bladder normal to palpation External Female Exam: normal appearance of the urethra Speculum Exam - Vagina: normal appearance of the vagina, normal palpation, normal vaginal discharge and vagina atrophic Speculum Exam - Cervix: normal appearance of the cervix and normal palpation Bimanual exam- vagina & uterus: normal bimanual exam, normal palpation, uterine size normal, bladder normal to palpation, normal palpation, uterine shape normal and non-tender Bimanual Exam- Adnexa, other: normal adnexae Neuro General: patient oriented x3 Results AMB Urinalysis, Automated UA Leukoctes 0 Merlin/uL Last Edit by DAVID Ahmadi on 10/29/23 14:08 UA Nitrite Negative Last Edit by DAVID Ahmadi on 10/29/23 14:08 UA Urobilinogen 0 mg/dL Last Edit by DAVID Ahmadi on 10/29/23 14:08 UA Protein 0 mg/dL Last Edit by DAVID Ahmadi on 10/29/23 14:08 UA pH 5.5 Last Edit by Omid PorrasDAVID villavicencio on 10/29/23 14:08 UA Blood 0.5 Lincoln/uL Last Edit by Omid PorrasDAVID villavicencio on 10/29/23 14:08 UA Specific Whiting 1.025 Last Edit by Omid PorrasDAVID villavicencio on 10/29/23 14: 08 UA Ketone Negative Last Edit by Marilyncarlos MinoDAVID [place] on 10/29/23 14:08 UA Bilirubin 0 mg/dL Last Edit by Omid PorrasJUAN villavicencioA on 10/29/23 14:08 UA Glucose 0 mg/dL Last Edit by Marilyncarlos MinoDAVID [place] on 10/29/23 14:08 Results Reviewed Results Reviewed: Laboratory Last Values Urine pH (Auto) 5.5 10/29/23 14:01 Specific [place] (Auto) 1.025 10/29/23 14:01 Urine Protein (Auto) 0 mg/dL 10/29/23 14:01 Glucose (UA)(Auto) 0 mg/dL 10/29/23 14:01 Urine Ketones (Auto) Negative 10/29/23 14:01 Urine Blood (Auto) 0.5 Lincoln/uL 10/29/23 14:01 Urine Nitrite (Auto) Negative 10/29/23 14:01 Urine Bilirubin (Auto) 0 mg/dL 10/29/23 14:01 Urine Urobilinogen (Auto) 0 mg/dL 10/29/23 14:01 Leukocyte Esterase (Auto) 0 Merlin/uL 10/29/23 14:01 Assessment & Plan Assessment & Plan (1) Lower abdominal pain: Code(s): R10.30 - Lower abdominal pain, unspecified (2) Vaginal odor: Code(s): N89.8 - Other specified noninflammatory disorders of vagina Plan Discussed: Normal exam today. BV and GC and chlamydia samples obtained, await results for plan of care. To follow-up with her GI provider and her primary care for her concerns. Request records for line prep cook consult done 2 months ago at [facility] records not found today. Encouraged to hydrate well. Urine obtained to be sent to the lab for analysis. All of her questions and concerns were addressed to the best of my ability and shared decision making. She is agreeable to the plan of care. Orders: Orders Bacterial Vaginosis Panel Today R10.2 - Pelvic and perineal pain CT NG by PCR Today R10.2 - Pelvic and perineal pain AMB Urinalysis Automated Today R10.2 - Pelvic and perineal pain Urine Culture Today R10.2 - Pelvic and perineal pain Coding Level of Care Code Est Pt Level 3 (45477) Diagnoses Lower abdominal pain R10.30 Vaginal odor N89.8
== END 2023-10-29 14:07 | disposition home or self-care (01) ==
LOC: HO.HWS 13:23
PROVIDERS: PCP Internal Medicine; Visit Provider Advanced Practice Midwife
DX: R10.30 Lower abdominal pain, unspecified (principal); N89.8 Other specified noninflammatory disorders of vagina; R10.2 Pelvic and perineal pain
CPT/HCPCS: 99213

== ENCOUNTER 2023-10-29 13:23 | Outpatient (REF) | payer OTHER, SELFPAY ==
[2023-10-29 18:47] LABS: CT PCR NOT DETECTED (Not Detect.); NG PCR NOT DETECTED (Not Detect.)
[2023-10-30 11:47] LABS: BV Int Neg Control Negative (Negative)
[2023-10-30 11:48] LABS: BV Int Pos Control Positive (Positive)
== END 2023-10-29 13:24 | disposition home or self-care (01) ==
LOC: HO.LNP 13:23
PROVIDERS: PCP Internal Medicine; Visit Provider Advanced Practice Midwife
DX: N89.8 Other specified noninflammatory disorders of vagina (principal); R10.2 Pelvic and perineal pain; R10.30 Lower abdominal pain, unspecified
CPT/HCPCS: 0353U; 81003; 87086; 87147; 87480; 87510; 87660; 99212

== ENCOUNTER 2023-11-02 10:50 | Outpatient (AMB) | payer OTHER, MEDICAID, SELFPAY ==
--- NOTE | 2023-11-02 10:52 | MHC.PC.OV ---
Vital Signs 11/02/23 10:53 11/02/23 12:19 Height 5 ft 1 in Weight 175 lb BMI 33.1 BP 142/80 H 140/80 H Blood Pressure Location Lt brachial Lt brachial Position Sitting Sitting Intake Visit Reasons: dm Intake Note: Patient here for a follow up DM Traveling Auditor Required: No Accompanied by: Spouse Allergies Penicillins Allergy (Intermediate, Verified 11/02/23 11:12) DIZZINESS, RASH tramadol [TRAMADOL] Allergy (Intermediate, Verified 11/02/23 11:12) NAUSEA & VOMITING egg [Egg] Adverse Reaction (Intermediate, Verified 11/02/23 11:12) NAUSEA & VOMITING morphine Adverse Reaction (Intermediate, Verified 11/02/23 11:12) Chest Pain oxycodone Adverse Reaction (Verified 11/02/23 11:12) Dizziness FANY DRINK Allergy (Intermediate, Uncoded 11/02/23 11:12) NAUSEA & VOMITING Medication List - Last Reconciled 11/02/23 by Aure Horton MD acetaminophen ER (Tylenol Arthritis Pain) 650 mg PO Q8H PRN albuterol sulfate 90 mcg/actuation 2 puffs inhalation Q4-6H PRN albuterol sulfate 2.5 mg (3 mL) inhalation Q4-6H PRN 30 days alcohol swabs pad topical amlodipine 5 mg PO DAILY aspirin 81 mg PO DAILY 90 days atenolol 50 mg PO DAILY 90 days atorvastatin 20 mg PO BEDTIME 90 days buspirone 10 mg PO BID 90 days calcium carbonate-vitamin D3 500 mg-10 mcg (400 unit) (Oyster Shell Calcium-Vitamin D3) 1 tab PO DAILY 90 days citalopram mg PO clotrimazole-betamethasone 1-0.05 % 1 appl topical BID PRN 7 days docusate sodium 100 mg PO BEDTIME estradiol 0.01%(0.1mg/gram) vaginal fluticasone propionate 50 mcg/actuation (Flonase Allergy Relief) 2 sprays intranasal DAILY gabapentin 100 mg PO BEDTIME 30 days ibuprofen 600 mg PO Q6H PRN metformin 500 mg PO BID 90 days nebulizers (AeroEclipse II Nebulizer) As directed omeprazole 20 mg PO DAILY ondansetron HCl 4 mg PO Q8-12H PRN pioglitazone 15 mg PO DAILY 90 days polyethylene glycol 3350 (Miralax) 17 grams PO DAILY sennosides (senna) mg PO DAILY walker As Directed Tobacco use date assessed: 10/22/22 HPI HPI Comments History of Present Illness Details This is a 67-year-old female with diabetes mellitus type 2, hypertension, pure hypercholesterolemia and mild depression that comes today accompanied by complaining of some occasional headaches and pelvic pain that has been present for over a month. The headaches are not associated with any neurological deficit and can be due to elevated blood pressure in which I will add losartan. Blood pressure will be recheck in 3 weeks by nurse navigator. She had a CT scan of abdomen and pelvis showing uterine fibroid and follow with [facility] already. Patient wants surgical removal of fibroid and I advised her to call [facility] for that matter. She complains of constant diarrhea and this is why I discontinue senna, docusate and MiraLax. I advised her that metformin can also cause diarrhea. Her A1c is elevated and I will add Actos 15 mg once a day and patient is aware. Lipid panel will be order and her LDL goal should be less than 70. She also complains of a hoarse voice that can be due to GERD as part of differential diagnosis. I will send her to ENT for further evaluation. Mild depression has been stable with citalopram. [facility]LY [facility] Medical History COVID-19 Impaired glucose regulation Dysuria Pelvic pain Burning with urination Fibroids Hiatal hernia Right shoulder pain Exposure to COVID-19 virus Mild depression TIA (transient ischemic attack) Asthma Back pain Abdominal pain Vaginal pruritus Vitamin D deficiency Left knee pain Left ankle pain Depression with anxiety Polyarthralgia Pure hypercholesterolemia Essential hypertension Surgical History History of tooth extraction History of colonoscopy History of cyst of breast History of hemicolectomy History of cholecystectomy History of appendectomy History of exploratory laparotomy Family History Father No problems noted. Mother Hypertension Stroke Diabetes Brother Leptospirosis Brother No problems noted. Family/Other FH: mental illness Son Hypertension Social History Household Members: Spouse Housing: Apartment Alcohol intake: never Patient Tobacco Use Status: Never used Tobacco e-Cigarette/Vaping Use: Never Used Second Hand Smoke Exposure: No service: No Current occupational status: disabled Sexual orientation: Straight/Heterosexual Gender identity: Female Cognitive needs: Yes Hearing needs: No Vision needs: Yes Female Reproductive History Menstrual Age of Menarche: 9 Questionnaire PHQ-9 Over the last 2 weeks, how often have you been bothered by any of the following problems? 1. Little interest or pleasure in doing things: not at all 2. Feeling down, depressed, or hopeless: not at all 3. Trouble falling or staying asleep, or sleeping too much: not at all 4. Feeling tired or having little energy: not at all 5. Poor appetite or overeating: not at all 6. Feeling bad about yourself - or that you are a failure or have let yourself or your family down: not at all 7. Trouble concentrating on things, such as reading the newspaper or watching television: not at all 8. Moving or speaking so slowly that other people could have noticed. Or the opposite - being so fidgety or restless that you have been moving around a lot more than usual: not at all 9. Thoughts that you would be better off or of hurting yourself in some way: not at all Total score: 0 Depression Screening Interpretation: Negative Depression Screening Done: Yes 35993 - PHQ-9 Billing: Yes Source: Developed by Drs. Dagoberto Mercer, Adry Valentin, Néstor Garcia and colleagues, with an educational zheng from [employer]. Thrive Questionnaire Date Thrive assessed: 11/02/23 I am a: Patient What is your living situation today?: I have a steady place to live Within the past 12 months, did the food you bought not last and you didn't have the money to get more?: Never true Within the past 12 months, did you worry whether your food would run out before you got money to buy more?: Never true Do you have trouble paying for medicines?: No Do you have trouble getting transportation to medical appointments?: No Do you have trouble paying your heating and electricity bill?: No Do you have trouble taking care of your child, family member or friend?: No Do you have trouble with day-to-day activities such as bathing, preparing meals, shopping, managing finances, etc.?: No Are you currently unemployed and looking for a job?: No Are you interested in more education?: No Please select the resources that you would like help with: None AUDIT C Alcohol Use Questionnaire (AUDIT-C) 1. How often do you have a drink containing alcohol?: Never Total Score: 0 Score Reviewed/Action Taken: No JESSICA-7 AMB Questionnaire JESSICA-7 Date JESSICA - 7 assessed: 11/02/23 Feeling nervous, anxious, or on edge: 1 = Several days Not being able to stop or control worryin = Not at all Worrying too much about different things: 0 = Not at all Trouble relaxin = Not at all Being so restless that it is hard to sit still: 0 = Not at all Becoming easily annoyed or irritable: 0 = Not at all Feeling afraid as if something awful might happen: 0 = Not at all Total JESSICA-7 score (0-4 normal; 5-9 mild; 10-14 moderate; 15-21 severe): 1 Source: Developed by Drs. Dagoberto Mercer, Adry Valentin, Néstor Garcia and colleagues, with an educational zheng from [employer]. JESSICA-7 Assessment Billing JESSICA-7 Assessment Tool: JESSICA-7 Assessment 51776 Review of Systems Const All systems reviewed & are unremarkable except as noted in HPI and below Eyes Reports no additional complaints, Denies change in vision and Denies other visual disturbances Card Denies chest pain at rest, Denies chest pain with activity, Denies edema, Denies irregular heart rhythm, Denies claudication, Denies dyspnea, Denies dyspnea on exertion, Denies orthopnea, Denies paroxysmal nocturnal dyspnea and Denies slow heart rate Resp Denies cough, Denies dyspnea and Denies dyspnea on exertion GI Denies abdominal pain, Denies change in bowel habits, Denies excessive flatus, Denies nausea and Denies vomiting Denies urinary incontinence, Denies urinary hesitancy and Denies urinary urgency Musc Denies atrophy, Denies deformity and Denies limited range of motion Physical exam (Primary Care) Vital Signs: Last Vital Signs BP 140/80 H 11/02/23 12:19 BMI result Body Mass Index 33.1 Tobacco/Smoking Status: Tobacco use Status Tobacco use date assessed 10/22/22 11/02/23 10:52 Patient Tobacco Use Status Never used Tobacco 11/02/23 10:52 e-Cigarette/Vaping Use Never Used 11/02/23 10:52 PHQ-9: PHQ-9 Score PHQ-9: Total score 0 11/02/23 12:25 Depression Screening Interpretation: Negative Thrive Assessment: Date of Thrive Assessment Date Thrive assessed 11/02/23 11/02/23 11:02 Eyes General: appearance normal, both eyes and all related structures Eyelids: Yes eyelids normal Conjunctivae: conjunctivae normal Neck Neck: Yes normal visual inspection and Yes supple Resp Effort & Inspection: normal respiratory effort Auscultation: clear to auscultation bilaterally Cardio Jugular venous distension: no JVD Rate: regular rate Rhythm: regular rhythm Heart sounds: S1 normal heart sound present and S2 normal heart sound present Extrem General: Yes full ROM Office Procedures Flu Questionnaire Does the patient have a severe egg allergy?: No Results AMB Hemoglobin A1c AMB Hemoglobin A1c 7.7 % Last Edit by DAVID Walton on 11/02/23 11:05 Immunizations flu vacc [id number] 6mos up(PF) 60 mcg(15 mcgx4)/0.5 mL IM syringe Performing Provider: Aure Horton MD [facility] Documented (not given) by: DAVID Walton on 11/02/23 10:52 Reason Not Given: Patient Refused Results Reviewed Results Reviewed: Laboratory Last Values Hgb A1c (Clinic) 7.7 % (4.0-6.0) H 11/02/23 10:53 Assessment and Plan Assessment & Plan (1) Diabetes mellitus: Code(s): E11.9 - Type 2 diabetes mellitus without complications Plan: Continue metformin. Start Actos. A1c goal is equal or less than 7%. (2) Essential hypertension: Code(s): I10 - Essential (primary) hypertension Plan: Continue amlodipine. Start losartan. Blood pressure goal is equal or less than 130/80. Recheck blood pressure with nurse navigator in 3 weeks. (3) Mild depression: Code(s): F32.0 - Major depressive disorder, single episode, mild Plan: Continue citalopram. (4) Pure hypercholesterolemia: Code(s): E78.00 - Pure hypercholesterolemia, unspecified Plan: Continue statins. Repeat lipid panel. LDL goal is less than 70. Orders: Orders Lipid Panel Today E78.5 - Hyperlipidemia, unspecified Vitamin D 25-OH Total Today E55.9 - Vitamin D deficiency, unspecified Comprehensive [place]. Panel Fast Today E11.9 - Type 2 diabetes mellitus without complications Influenza [id number] Immunization Today Z23 - Encounter for immunization AMB Hemoglobin A1c Today E11.9 - Type 2 diabetes mellitus without complications Microalbumin, Random (w Creat) Today E11.9 - Type 2 diabetes mellitus without complications Medications: New losartan 25 mg PO DAILY 90 tabs 0RF 90 days I10 - Essential (primary) hypertension Refilled pioglitazone 15 mg PO DAILY 90 tabs 1RF 90 days E11.9 - Type 2 diabetes mellitus without complications amlodipine 5 mg PO DAILY 30 tabs 6RF Discontinued polyethylene glycol 3350 (Miralax) Discontinued Reason: No Longer Medically Relevant 17 grams PO DAILY 510 grams 2RF docusate sodium Discontinued Reason: Patient Completed Course 100 mg PO BEDTIME 90 caps 3RF K59.00 - Constipation, unspecified Coding Level of Care Code Est Pt Level 4 (11858) Diagnoses Diabetes mellitus E11.9 Essential hypertension I10 Mild depression F32.0 Pure hypercholesterolemia E78.00 Additional Codes JESSICA-7 Assessment Billing - JESSICA-7 Assessment Tool: JESSICA-7 Assessment 14063 ([id number]) Time Spent (min) 25
[2023-11-02 10:53] VITALS: BP 142/80; BMI 33.1
[2023-11-02 12:19] VITALS: BP 140/80
== END 2023-11-02 11:24 | disposition home or self-care (01) ==
PROVIDERS: PCP Internal Medicine; Visit Provider Internal Medicine
DX: E11.9 Type 2 diabetes mellitus without complications (principal); I10 Essential (primary) hypertension; F32.0 Major depressive disorder, single episode, mild; E78.00 Pure hypercholesterolemia, unspecified
CPT/HCPCS: 83036; 99214

== ENCOUNTER 2023-11-09 11:41 | Outpatient (AMB) | payer OTHER, SELFPAY ==
--- NOTE | 2023-11-09 12:02 | MHC.OFFVIS ---
Intake Vital Signs 11/09/23 12:03 Height 5 ft 1 in Weight 178 lb 9.191 oz BMI 33.7 BP 146/68 H Blood Pressure Location Lt brachial Position Sitting Pulse 67 Intake Visit Reasons: 6 months follow up Intake Note: Patient returns to in office visit today in 6 months follow up of GERD. CC: Patient c/o abdominal pain, loose stools, nausea, acid reflux, and heartburn. Denies other GI concerns. Grievance Manager Required: Yes Accompanied by: Self / Same As Patient Allergies Penicillins Allergy (Intermediate, Verified 11/09/23 12:11) DIZZINESS, RASH tramadol [TRAMADOL] Allergy (Intermediate, Verified 11/09/23 12:11) NAUSEA & VOMITING egg [Egg] Adverse Reaction (Intermediate, Verified 11/09/23 12:11) NAUSEA & VOMITING morphine Adverse Reaction (Intermediate, Verified 11/09/23 12:11) Chest Pain oxycodone Adverse Reaction (Verified 11/09/23 12:11) Dizziness FANY DRINK Allergy (Intermediate, Uncoded 11/02/23 11:12) NAUSEA & VOMITING HPI 6 months follow up HPI Details LAST VISIT GERD (gastroesophageal reflux disease) Continue omeprazole. Discussed with patient avoiding dietary triggers and late night snacking. Staying upright for minimum 3 hours after meals discussed with patient. IBS (irritable bowel syndrome) Continue low FODMAP diet. Continue avoiding dietary triggers. Constipation Continue MiraLax and Colace. Patient is moving her bowels better now. Patient was encouraged to increase fluid intake and activity to promote better bowel motility. I will see patient in 6 months, sooner on as needed basis. Patient is agreeable to this plan and verbalizes understanding of instructions. She was given the opportunity to ask questions and all questions answered. ? TODAY'S VISIT: Patient is here today for follow-up. Patient reports that she has been having loose stools alternating with constipation. Patient reports that she has not changed anything in her diet. Trying to eat healthier. Denies any melena, hematochezia, unintentional weight loss or ribbon like stools. Patient denies any dyspepsia, dysphagia or odynophagia. Patient reports that she was sent by her PCP to ENT for symptoms of hoarseness in her voice. Patient does admit to having cold and sinus pressure in the past few weeks. Admits to postnasal drip. Patient denies any fever or chills. Occasional nausea without vomiting. Patient reports occasional postprandial abdominal bloating. Patient denies any abdominal pain or discomfort. [facility] Medical History COVID-19 Impaired glucose regulation Dysuria Pelvic pain Burning with urination Fibroids Hiatal hernia Right shoulder pain Exposure to COVID-19 virus Mild depression TIA (transient ischemic attack) Asthma Back pain Abdominal pain Vaginal pruritus Vitamin D deficiency Left knee pain Left ankle pain Depression with anxiety Polyarthralgia Pure hypercholesterolemia Essential hypertension Surgical History History of tooth extraction History of colonoscopy History of cyst of breast History of hemicolectomy History of cholecystectomy History of appendectomy History of exploratory laparotomy Family History Father No problems noted. Mother Hypertension Stroke Diabetes Brother Leptospirosis Brother No problems noted. Family/Other FH: mental illness Son Hypertension Social History Household Members: Spouse Housing: Apartment Alcohol intake: never Patient Tobacco Use Status: Never used Tobacco e-Cigarette/Vaping Use: Never Used Second Hand Smoke Exposure: No service: No Current occupational status: disabled Sexual orientation: Straight/Heterosexual Gender identity: Female Cognitive needs: Yes Hearing needs: No Vision needs: Yes Female Reproductive History Menstrual Age of Menarche: 9 Review of Systems Const Denies weight gain and Denies weight loss ENT Reports no additional complaints, Denies dysphagia and Denies odynophagia Card Reports no additional complaints Resp Reports no additional complaints GI Denies abdominal pain, Denies belching, Denies melena, Denies bloating, Reports tenesmus, Denies dysphagia, Denies excessive flatus, Reports dyspepsia, Denies heartburn, Denies diarrhea, Reports loose stools, Reports nausea, Denies odynophagia and Denies vomiting Reports no additional complaints Musc Reports no additional complaints Neuro Reports no additional complaints Psych Reports no additional complaints Endo Reports no additional complaints Physical Exam Vital Signs: Last Vital Signs Pulse 67 11/09/23 12:03 BP 146/68 H 11/09/23 12:03 BMI result Body Mass Index 33.7 Const General: healthy appearing, no acute distress and well developed Nutritional Appearance: obese Orientation/consciousness: patient oriented x3 Resp Effort & Inspection: normal respiratory effort, able to speak in complete sentences, no tracheal deviation and symmetric chest movement Auscultation: clear to auscultation bilaterally Cardio Rate: regular rate GI Inspection: Yes normal to inspection, No distended and Yes obesity Palpation (GI): Soft to palpation, not firm, nontender and No hepatosplenomegaly present Auscultation: normal bowel sounds General: Yes no CVA tenderness Back/Spine/Pelvis Back: no CVA tenderness Skin General skin exam: elasticity normal, turgor normal and dry skin Neuro General: patient oriented x3 Psych Appearance: grossly normal Mental Status: mental status grossly normal Assessment & Plan Assessment & Plan (1) GERD (gastroesophageal reflux disease): Code(s): K21.9 - Gastro-esophageal reflux disease without esophagitis Qualifiers: Esophagitis presence: esophagitis presence not specified Qualified Code(s): K21.9 - Gastro-esophageal reflux disease without esophagitis (2) IBS (irritable bowel syndrome): Code(s): K58.9 - Irritable bowel syndrome without diarrhea Qualifiers: Irritable bowel syndrome type: with both diarrhea and constipation Qualified Code(s): K58.2 - Mixed irritable bowel syndrome (3) Constipation: Code(s): K59.00 - Constipation, unspecified Qualifiers: Constipation type: slow transit constipation Qualified Code(s): K59.01 - Slow transit constipation Plan Patient was encouraged to increase fluid intake and activity to promote better bowel motility. She can also start taking Citrucel to help her bulk stools. Upper GI series to rule out reflux. Patient denies any dyspepsia, dysphagia or odynophagia. Send patient for upper GI series. Discussed with patient low FODMAP diet. List of food recommended as well as list of food to avoid given to patient. I will see her in 3 months, sooner on as needed basis. Patient is agreeable to this plan and verbalizes understanding of instructions. She was given the opportunity to ask questions and all questions answered. Thank you for allowing me to participate in her care Orders: Orders [place] upper GI series Today K21.9 - Gastro-esophageal reflux disease without esophagitis Medications: New methylcellulose (laxative) (Citrucel) take it with full glass of water 500 mg PO DAILY 90 tabs 2RF K59.00 - Constipation, unspecified Coding Level of Care Code Est Pt Level 3 (53959) Diagnoses Gastroesophageal reflux disease, unspecified whether esophagitis present K21.9 Esophagitis presence: esophagitis presence not specified Irritable bowel syndrome with both constipation and diarrhea K58.2 Irritable bowel syndrome type: with both diarrhea and constipation Slow transit constipation K59.01 Constipation type: slow transit constipation Time Spent (min) 30 Comment 20 minutes spent with patient and additional 10 minutes spent reviewing her records
[2023-11-09 12:03] VITALS: BP 146/68; PULSE 67; BMI 33.7
== END 2023-11-09 12:41 | disposition home or self-care (01) ==
PROVIDERS: PCP Internal Medicine; Visit Provider Nurse Practitioner Family
DX: K21.9 Gastro-esophageal reflux disease without esophagitis (principal); K58.2 Mixed irritable bowel syndrome; K59.01 Slow transit constipation
CPT/HCPCS: 99213

== ENCOUNTER → 2023-11-09 11:41 | Outpatient (BNVA) | payer OTHER, SELFPAY | PROVIDERS: PCP Internal Medicine; Visit Provider Nurse Practitioner Family | DX: K21.9 Gastro-esophageal reflux disease without esophagitis (principal); K58.2 Mixed irritable bowel syndrome; K59.01 Slow transit constipation | CPT/HCPCS: 99212 ==

== ENCOUNTER 2023-12-25 10:10 | Outpatient (AMB) | payer OTHER, SELFPAY ==
--- NOTE | 2023-12-25 10:49 | MHC.OFFVIS ---
Intake Vital Signs 12/25/23 10:55 Height 5 ft 1 in Weight 112 lb 6.972 oz BMI 21.2 BP 128/76 Intake Visit Reasons: pelvic pain/30 mins Security Compliance Specialist Required: Yes Security Compliance Specialist Language: Carcass Washer Name: Iraida HERNANDEZ Information Interpreted: non-clinical & clinical Inside Sales Manager: Inside Sales Manager Present (Iraida HERNANDEZ) Accompanied by: Self / Same As Patient Allergies Penicillins Allergy (Intermediate, Verified 12/25/23 10:56) DIZZINESS, RASH tramadol [TRAMADOL] Allergy (Intermediate, Verified 12/25/23 10:56) NAUSEA & VOMITING egg [Egg] Adverse Reaction (Intermediate, Verified 12/25/23 10:56) NAUSEA & VOMITING morphine Adverse Reaction (Intermediate, Verified 12/25/23 10:56) Chest Pain oxycodone Adverse Reaction (Verified 12/25/23 10:56) Dizziness FANY DRINK Allergy (Intermediate, Uncoded 12/25/23 10:56) NAUSEA & VOMITING Post menopausal: Yes HPI HPI Comments History of Present Illness Details Patient is here today with complaints of frequency of urination and painful urination over the last 2 days. She has not been sexually active for many years and did a lot denies any symptoms of vaginitis. History of uterine fibroid follow-up for stability plan for early May. She denies any fever flu-like symptoms chills or flank pain. [facility] Medical History COVID-19 Impaired glucose regulation Dysuria Pelvic pain Burning with urination Fibroids Hiatal hernia Right shoulder pain Exposure to COVID-19 virus Mild depression TIA (transient ischemic attack) Asthma Back pain Abdominal pain Vaginal pruritus Vitamin D deficiency Left knee pain Left ankle pain Depression with anxiety Polyarthralgia Pure hypercholesterolemia Essential hypertension Surgical History History of tooth extraction History of colonoscopy History of cyst of breast History of hemicolectomy History of cholecystectomy History of appendectomy History of exploratory laparotomy Family History Father No problems noted. Mother Hypertension Stroke Diabetes Brother Leptospirosis Brother No problems noted. Family/Other FH: mental illness Son Hypertension Social History Household Members: Spouse Housing: Apartment Alcohol intake: never Patient Tobacco Use Status: Never used Tobacco e-Cigarette/Vaping Use: Never Used Second Hand Smoke Exposure: No service: No Current occupational status: disabled Sexual orientation: Straight/Heterosexual Gender identity: Female Cognitive needs: Yes Hearing needs: No Vision needs: Yes Female Reproductive History Menstrual Age of Menarche: 9 Review of Systems Const All systems reviewed & are unremarkable except as noted in HPI and below Physical Exam Vital Signs: Last Vital Signs BP 128/76 12/25/23 10:55 BMI result Body Mass Index 21.2 Const General: cooperative, healthy appearing and no acute distress Orientation/consciousness: patient oriented x3 GI Inspection: Yes normal to inspection Palpation (GI): Soft to palpation and Other GI palpation findings present (Nontender) Rectal Exam - Female: visual inspection normal General: Yes bladder normal to palpation External Female Exam: normal appearance of the urethra Speculum Exam - Vagina: normal appearance of the vagina, normal palpation, normal vaginal discharge (Thin white discharge) and vagina atrophic Speculum Exam - Cervix: normal appearance of the cervix and normal palpation Bimanual exam- vagina & uterus: normal bimanual exam, normal palpation, uterine size normal, bladder normal to palpation, normal palpation, uterine shape normal and non-tender Bimanual Exam- Adnexa, other: normal adnexae Neuro General: patient oriented x3 Results AMB Urinalysis Dipstick UR Leukocytes Last Edit by Sariah Ibanez MA on 12/25/23 11:13 1+ Sariah Ibanez 12/25/23 11:13 UR Nitrite Negative Last Edit by Sariah Ibanez MA on 12/25/23 11:13 UR Urobilinogen 4 Last Edit by Sariah Ibanez MA on 12/25/23 11:13 UR Protein Negative Last Edit by Sariah Ibanez MA on 12/25/23 11:13 UR Ph 6.0 Last Edit by Sariah Ibanez MA on 12/25/23 11:13 UR Blood Last Edit by Sariah Ibanez MA on 12/25/23 11:13 + Sariah Ibanez 12/25/23 11:13 UR Specific [place] 1.020 Last Edit by Sariah Ibanez MA on 12/25/23 11:13 UR Ketone Negative Last Edit by Sariah Ibanez MA on 12/25/23 11:13 UR Bilirubin Negative Last Edit by Sariah Ibanez MA on 12/25/23 11:13 UR Glucose Negative Last Edit by Sariah Ibanez MA on 12/25/23 11:13 Assessment & Plan Assessment & Plan (1) Dysuria: Code(s): R30.0 - Dysuria (2) Uterine fibroid: Code(s): D25.9 - Leiomyoma of uterus, unspecified Qualifiers: Uterine leiomyoma location: unspecified location Qualified Code(s): D25.9 - Leiomyoma of uterus, unspecified Plan Discussed; Increase hydration, mostly water. Limit caffeine to one cup a day or eliminate altogether. Avoid carbonated, sugary or artificial sweetened beverages. Always clean and wipe from front to back. Empty your bladder often and when the urge. Take as directed and complete any medications that may be ordered. Report to the ED immediately if any fever >100.4, flu like symptoms, lightheadedness, dizziness, significant flank pain. Scheduled follow up annual exam for May and obtain the ultrasound few weeks before that visit so that it can be reviewed together at her annual. All of her questions and concerns were addressed to the best of my ability and shared decision making. She is agreeable to the plan of care. This note is constructed using voice recognition software. While every effort has been made to ensure accuracy, dye tub operator errors may have been included. Orders: Orders AMB Urinalysis Dipstick Today R30.0 - Dysuria US pelvic and transvaginal 05/19/24 D25.9 - Leiomyoma of uterus, unspecified, R30.0 - Dysuria Urine Culture Today R30.0 - Dysuria Medications: Refilled nitrofurantoin monohyd/m-cryst 100 mg (Macrobid) must administer with a meal/food 100 mg PO BID 5 days 10 caps 0RF UTI nitrofurantoin monohyd/m-cryst 100 mg (Macrobid) must administer with a meal/food 100 mg PO BID 5 days 10 caps 0RF UTI Coding Level of Care Code Est Pt Level 3 (52430) Diagnoses Dysuria R30.0 Uterine leiomyoma, unspecified location D25.9 Uterine leiomyoma location: unspecified location
[2023-12-25 10:55] VITALS: BP 128/76; BMI 21.2
== END 2023-12-25 12:32 | disposition home or self-care (01) ==
LOC: HO.HWS 10:10
PROVIDERS: PCP Internal Medicine; Visit Provider Advanced Practice Midwife
DX: R30.0 Dysuria (principal); D25.9 Leiomyoma of uterus, unspecified
CPT/HCPCS: 99213

== ENCOUNTER 2023-12-25 10:10 | Outpatient (REF) | payer OTHER, SELFPAY ==
[2023-12-26 12:05] LABS: BV Int Neg Control Negative (Negative); BV Int Pos Control Positive (Positive)
== END 2023-12-25 10:11 | disposition home or self-care (01) ==
LOC: HO.LNP 10:10
PROVIDERS: PCP Internal Medicine; Visit Provider Advanced Practice Midwife
DX: N89.8 Other specified noninflammatory disorders of vagina (principal); R30.0 Dysuria; R10.2 Pelvic and perineal pain; R35.0 Frequency of micturition; D25.9 Leiomyoma of uterus, unspecified
CPT/HCPCS: 81002; 87086; 87480; 87510; 87660; 99212

== ENCOUNTER 2024-01-07 08:35 | Outpatient (REF) | payer OTHER, SELFPAY ==
--- NOTE | ~2024-01-07 | FL_ITS ---
EXAMINATION: XR FLUOROSCOPY UPPER GI WITH AIR CLINICAL INFORMATION: Reflux. Dysphagia. COMPARISON: None TECHNIQUE: Fluoroscopic air contrast upper GI examination was performed utilizing standard techniques with thin and thick barium and effervescent granules. Numerous spot images were obtained. FINDINGS: Lateral cine images of the oropharynx and hypopharynx demonstrate normal swallow mechanism with normal epiglottic inversion and soft palate elevation. No tracheal penetration, glottic or subglottic aspiration identified. No nasopharyngeal reflux present. Hypopharyngeal structures appear normal without evidence of mass or diverticulum. There was no significant cricopharyngeal achalasia. Dual and single contrast images of the esophagus demonstrate normal caliber, contour, and mucosal pattern. No evidence of stricture, mass, or ulcerations identified. Esophageal peristalsis is mildly disorganized. Moderate-sized type I hiatal hernia is present. Gastroesophageal reflux is seen up to the midesophagus. Dual contrast and single contrast images of the stomach demonstrated a normal contour. There are multiple small areas of contrast pooling in the fundus, body, and antrum of stomach that may represents small superficial ulcers. In addition, there are also multiple small circumscribed filling defects in the body the stomach that likely represent gastric polyps. No masses are seen. Gastritis is a consideration. Contrast freely passed into the gastric antrum and duodenal bulb without delay. Single and air-contrast images of the duodenal bulb demonstrate no abnormality. The duodenal sweep has a normal appearance, course, and mucosal fold appearance. The imaged proximal jejunum has a normal fold pattern and caliber. FLUOROSCOPY TIME: 4 minutes 44 seconds Number of Spot Images: 14 Number of Cine: 11 DOSE AREA PRODUCT: 3431 uGy-m2 (microgray-meter squared) FL/FL upper GI w air IMPRESSION: 1. Mildly disorganized esophageal peristalsis 2. Moderate-sized type I hiatal hernia 3. Moderate gastroesophageal reflux 4. Multiple tiny areas of contrast pooling in the fundus, body, and antrum of the stomach that may represent small superficial aphthous ulcers. A few scattered hyperplastic polyps also suspected. Gastritis is a consideration. Recommend correlation with EGD. This procedure was performed by Robin Barriga PA-C, and supervised by Dr. Menendez
== END 2024-01-07 08:36 | disposition home or self-care (01) ==
LOC: HO.XRAY 08:35
PROVIDERS: PCP Internal Medicine; Visit Provider Nurse Practitioner Family
DX: K21.9 Gastro-esophageal reflux disease without esophagitis (principal)
CPT/HCPCS: 74246

== ENCOUNTER → 2024-01-07 08:45 | Outpatient (BNV) | payer OTHER, SELFPAY | PROVIDERS: PCP Internal Medicine; Visit Provider Physician Assistant Surgical | DX: R13.10 Dysphagia, unspecified (principal); K21.9 Gastro-esophageal reflux disease without esophagitis | CPT/HCPCS: 74246 ==

== ENCOUNTER 2024-01-28 13:51 | Outpatient (AMB) | payer OTHER, SELFPAY ==
[2024-01-28 13:52] VITALS: BP 120/70; PULSE 75; TEMP 36.1; O2SAT 96; BMI 34.2
--- NOTE | 2024-01-28 13:52 | AM.OFFWIN_ITS ---
Intake Vital Signs 01/28/24 13:52 Height 5 ft 1 in Weight 181 lb BMI 34.2 BP 120/70 Blood Pressure Location Lt brachial Position Sitting Pulse 75 Pulse Source Pulse Oximeter Temp 97.0 F Temp Source Temporal Artery Scan Pulse Oximetry (%) 96 Oxygen Delivery Method Room Air Intake Visit Reasons: EP Cough, asthma Intake Note: pt is here today for cough asthma Patient Tobacco Use Status: Never used Tobacco Allergies Penicillins Allergy (Intermediate, Verified 01/28/24 13:55) DIZZINESS, RASH tramadol [TRAMADOL] Allergy (Intermediate, Verified 01/28/24 13:55) NAUSEA & VOMITING egg [Egg] Adverse Reaction (Intermediate, Verified 01/28/24 13:55) NAUSEA & VOMITING morphine Adverse Reaction (Intermediate, Verified 01/28/24 13:55) Chest Pain oxycodone Adverse Reaction (Verified 01/28/24 13:55) Dizziness FANY DRINK Allergy (Intermediate, Uncoded 12/25/23 10:56) NAUSEA & VOMITING Do you need a note to return to daycare/school/sports/work: No HPI HPI Comments History of Present Illness Details 68 y/o female patient who [facility] to [facility] with c/o cough for 3 days now. [facility] Medical History COVID-19 Impaired glucose regulation Dysuria Pelvic pain Burning with urination Fibroids Hiatal hernia Right shoulder pain Exposure to COVID-19 virus Mild depression TIA (transient ischemic attack) Asthma Back pain Abdominal pain Vaginal pruritus Vitamin D deficiency Left knee pain Left ankle pain Depression with anxiety Polyarthralgia Pure hypercholesterolemia Essential hypertension Surgical History History of tooth extraction History of colonoscopy History of cyst of breast History of hemicolectomy History of cholecystectomy History of appendectomy History of exploratory laparotomy Family History Father No problems noted. Mother Hypertension Stroke Diabetes Brother Leptospirosis Brother No problems noted. Family/Other FH: mental illness Son Hypertension Social History Household Members: Spouse Housing: Apartment Alcohol intake: never Patient Tobacco Use Status: Never used Tobacco e-Cigarette/Vaping Use: Never Used Second Hand Smoke Exposure: No service: No Current occupational status: disabled Sexual orientation: Straight/Heterosexual Gender identity: Female Cognitive needs: Yes Hearing needs: No Vision needs: Yes Female Reproductive History Menstrual Age of Menarche: 9 Review of Systems Const All systems reviewed & are unremarkable except as noted in HPI and below Physical Exam Vital Signs: Last Vital Signs Temp 97.0 F 01/28/24 13:52 Pulse 75 01/28/24 13:52 BP 120/70 01/28/24 13:52 Pulse Ox 96 01/28/24 13:52 Oxygen Delivery Method Room Air 01/28/24 13:52 BMI result Body Mass Index 34.2 Const General: comfortable and no acute distress Nutritional Appearance: overweight Orientation/consciousness: patient oriented x3 HEENT Head: Yes normocephalic Ears: external ears normal and TM's normal bilaterally General nose exam: No nasal discharge present and Abnormal mucous membranes and turbinates present pale Face and sinus: Yes sinuses nontender Mouth: moist mucous membranes Throat: Yes posterior oropharynx normal Resp Effort & Inspection: normal respiratory effort, able to speak in complete sentences and Actively coughing Auscultation: clear to auscultation bilaterally, no crackles, no rales, no rhonchi and no wheezes Cardio Rate: regular rate Rhythm: regular rhythm Neuro General: patient oriented x3 Assessment & Plan Assessment & Plan (1) Upper respiratory infection: Code(s): J06.9 - Acute upper respiratory infection, unspecified Qualifiers: URI type: unspecified URI Qualified Code(s): J06.9 - Acute upper respiratory infection, unspecified Plan: - OTC cough remedies - Warm fluids with honey - Rest - Acetaminophen for pain relief. (2) Cough in adult: Code(s): R05.9 - Cough, unspecified Plan: - OTC cough remedies - Warm fluids with honey - Rest - Acetaminophen for pain relief. Plan - OTC cough remedies - Warm fluids with honey - Rest - Acetaminophen for pain relief. Orders: Orders SARS-CoV2/FLU/RSV Today J06.9 - Acute upper respiratory infection, unspecified Medications: New benzonatate 100 mg PO TID 30 caps 0RF R05.9 - Cough, unspecified dextromethorphan-guaifenesin 5-100 mg/5 mL (Delsym Cough-Chest Congestion DM) 10 mL PO Q4-8H PRN 500 mL 0RF cough R05.9 - Cough, unspecified Coding Level of Care Code Est Pt Level 3 (05822) Diagnoses Upper respiratory tract infection, unspecified type J06.9 URI type: unspecified URI Cough in adult R05.9 Time Spent (min) 15
== END 2024-01-28 14:16 | disposition home or self-care (01) ==
PROVIDERS: PCP Internal Medicine; Visit Provider Nurse Practitioner Family
DX: J06.9 Acute upper respiratory infection, unspecified (principal); R05.9 Cough, unspecified
CPT/HCPCS: 99213

== ENCOUNTER 2024-01-28 14:12 | Outpatient (REF) | payer OTHER, SELFPAY ==
[2024-01-28 17:46] LABS: Influenza A PCR NEGATIVE (Negative); Influenza B PCR NEGATIVE (Negative); Resp Syncy Virus RNA Qual PCR NEGATIVE (Negative); SARS COV2 PCR INHOUSE NEGATIVE (Negative)
== END 2024-01-28 14:13 | disposition home or self-care (01) ==
LOC: HO.LAB 14:12
PROVIDERS: Visit Provider Nurse Practitioner Family
DX: J06.9 Acute upper respiratory infection, unspecified (principal)
CPT/HCPCS: 0241U

== ENCOUNTER 2024-02-16 10:19 | Outpatient (AMB) | payer OTHER, SELFPAY ==
--- NOTE | 2024-02-16 10:57 | A.OFFVIS_ITS ---
Intake Visit Reasons: Dysuria Intake Note: New Patient presents for initial visit for Dysuria Urology Medications: none Blood Thinner: aspirin PVR: 0ml's Dobby Loom Weaver Required: Yes Dobby Loom Weaver Name: LAMAR GUDINOSALINA Accompanied by: Unknown Allergies Penicillins Allergy (Intermediate, Verified 02/16/24 11:40) DIZZINESS, RASH tramadol [TRAMADOL] Allergy (Intermediate, Verified 02/16/24 11:40) NAUSEA & VOMITING egg [Egg] Adverse Reaction (Intermediate, Verified 02/16/24 11:40) NAUSEA & VOMITING morphine Adverse Reaction (Intermediate, Verified 02/16/24 11:40) Chest Pain oxycodone Adverse Reaction (Verified 02/16/24 11:40) Dizziness FANY DRINK Allergy (Intermediate, Uncoded 02/16/24 11:40) NAUSEA & VOMITING Medication List - Last Reconciled 02/16/24 by MAGAN Ballesteros-KIERA acetaminophen ER (Tylenol Arthritis Pain) 650 mg PO Q8H PRN albuterol sulfate 2.5 mg (3 mL) inhalation Q4-6H PRN 30 days alcohol swabs pad topical amlodipine 5 mg PO DAILY aspirin 81 mg PO DAILY 90 days atenolol 50 mg PO DAILY 90 days atorvastatin 20 mg PO BEDTIME 90 days benzonatate 100 mg PO TID buspirone 10 mg PO BID 90 days calcium carbonate-vitamin D3 500 mg-10 mcg (400 unit) (Oyster Shell Calcium- Vitamin D3) 1 tab PO DAILY 90 days citalopram 20 mg PO dextromethorphan-guaifenesin 5-100 mg/5 mL (Delsym Cough-Chest Congestion DM) 10 mL PO Q4-8H PRN estradiol 0.01%(0.1mg/gram) Pea-sized amount to the urethra daily for the 1st month 3 times a week thereafter. 30 days fluticasone propionate 50 mcg/actuation (Flonase Allergy Relief) 2 sprays intranasal DAILY gabapentin 100 mg PO BEDTIME 30 days ibuprofen 600 mg PO Q6H PRN metformin 500 mg PO BID 90 days methylcellulose (laxative) (Citrucel) 500 mg PO DAILY mirabegron ER (Myrbetriq) 25 mg PO DAILY 30 days nebulizers (AeroEclipse II Nebulizer) As directed omeprazole 20 mg PO DAILY ondansetron HCl 4 mg PO Q8-12H PRN pioglitazone 15 mg PO DAILY walker As Directed HPI Comments Details: Ximena is a 68-year-old Khmer-speaking female patient of Dr. Bartlett who was accompanied by her PC at today's office visit. She has a past medical history of COVID-19, dysuria, diabetes, pelvic pain, fibroids, hiatal hernia, TIA, depression, asthma, chronic back pain, polyarthralgia, hypercholesteremia, and hypertension. She presents to the office today as a new patient for ongoing lower urinary tract symptoms. In discussion with the patient today she reports urinary frequency, urinary urgency, dysuria, and mixed urinary incontinence have been present for quite some time. She reports having followed up with her PCP at which time recommendations were made for urology referral for further assessment evaluation. In office urinalysis results reviewed with the patient today. PVR 0 mL. Discussed at length potential causes for lower urinary tract symptoms patient is experiencing. Discussed obtaining retroperitoneal ultrasound for further assessment evaluation. Discussed further treatment options for urinary urgency, urinary frequency, and mixed urinary incontinence patient is experiencing. Will refer to pelvic floor therapy. She otherwise denies hematuria,foul smelling urine, changes to urinary stream, flank pain, fever, and or chills. She otherwise denies any other issues or concerns at this time. [facility] Medical History COVID-19 Impaired glucose regulation Dysuria Pelvic pain Burning with urination Fibroids Hiatal hernia Right shoulder pain Exposure to COVID-19 virus Mild depression TIA (transient ischemic attack) Asthma Back pain Abdominal pain Vaginal pruritus Vitamin D deficiency Left knee pain Left ankle pain Depression with anxiety Polyarthralgia Pure hypercholesterolemia Essential hypertension Surgical History History of tooth extraction History of colonoscopy History of cyst of breast History of hemicolectomy History of cholecystectomy History of appendectomy History of exploratory laparotomy Family History Father No problems noted. Mother Hypertension Stroke Diabetes Brother Leptospirosis Brother No problems noted. Family/Other FH: mental illness Son Hypertension Social History Household Members: Spouse Housing: Apartment Alcohol intake: never Patient Tobacco Use Status: Never used Tobacco e-Cigarette/Vaping Use: Never Used Second Hand Smoke Exposure: No service: No Current occupational status: disabled Sexual orientation: Straight/Heterosexual Gender identity: Female Cognitive needs: Yes Hearing needs: No Vision needs: Yes Female Reproductive History Menstrual Age of Menarche: 9 Review of Systems Const Reports no additional complaints Eyes Reports no additional complaints ENT Reports no additional complaints Card Reports as per HPI Resp Reports as per HPI GI Reports as per HPI Reports as per HPI Musc Reports as per HPI Neuro Reports as per HPI Psych Reports as per HPI Endo Reports no additional complaints Bin/Lymph Reports no additional complaints Aller/Immun Reports no additional complaints Physical Exam Const General: cooperative, healthy appearing, comfortable, no acute distress, well developed, alert and awake Nutritional Appearance: overweight Orientation/consciousness: patient oriented x3 Limitations: no limitations HEENT Head: Yes normal to inspection, Yes normocephalic and Yes atraumatic Ears: hearing grossly normal bilaterally Eyes General: appearance normal, both eyes and all related structures Neck Neck: Yes normal visual inspection and Yes trachea midline Chest Chest palpation & inspection: normal inspection of the chest Resp Effort & Inspection: normal respiratory effort and able to speak in complete sentences Cardio Rate: regular rate GI Inspection: Yes normal to inspection General: Yes no CVA tenderness Back/Spine/Pelvis Back: no CVA tenderness Skin General skin exam: no rashes or lesions noted Neuro General: patient oriented x3 Extrem General: Yes normal to inspection Psych Appearance: grossly normal and well kempt Mental Status: mental status grossly normal Speech and movement: Normal speech and movement present and Clear speech present Affect: normal affect Attitude: cooperative Thought process: Normal thought process present Thought content: Normal thought content present Insight: Fair insight present (Psych) Judgement: Fair judgement present (Psych) Office Procedures Post Void Residual Post Residual Void Post Void Residual (PVR): 0 [id number] Void Residual by ultrasound Results AMB Urinalysis, Automated UA Leukoctes 0 Merlin/uL Last Edit by Kiar Hernandez on 02/16/24 11:11 UA Nitrite Negative Last Edit by Kira Hernandez on 02/16/24 11:11 UA Urobilinogen 0.2 mg/dL Last Edit by Kira Hernandez on 02/16/24 11:11 UA Protein 15 mg/dL Last Edit by Kira Hernandez on 02/16/24 11:11 UA pH 6.0 Last Edit by Kira Hernandez on 02/16/24 11:11 UA Blood 0 [place]/uL Last Edit by Kira Hernandez on 02/16/24 11:11 UA Specific [place] 1.020 Last Edit by Kira Hernandez on 02/16/24 11:11 UA Ketone Negative Last Edit by Kira Hernandez on 02/16/24 11:11 UA Bilirubin 0 mg/dL Last Edit by Kira Hernandez on 02/16/24 11:11 UA Glucose 0 mg/dL Last Edit by Kira Hernandez on 02/16/24 11:11 Results Reviewed Results Reviewed: Laboratory Last Values Urine pH (Auto) 6.0 02/16/24 11:04 Specific [place] (Auto) 1.020 02/16/24 11:04 Urine Protein (Auto) 15 mg/dL 02/16/24 11:04 Glucose (UA)(Auto) 0 mg/dL 02/16/24 11:04 Urine Ketones (Auto) Negative 02/16/24 11:04 Urine Blood (Auto) 0 [place]/uL 02/16/24 11:04 Urine Nitrite (Auto) Negative 02/16/24 11:04 Urine Bilirubin (Auto) 0 mg/dL 02/16/24 11:04 Urine Urobilinogen (Auto) 0.2 mg/dL 02/16/24 11:04 Leukocyte Esterase (Auto) 0 Merlin/uL 02/16/24 11:04 Assessment & Plan Assessment & Plan (1) Mixed stress and urge urinary incontinence: Code(s): N39.46 - Mixed incontinence Category: Medical (2) Lower urinary tract symptoms: Code(s): R39.9 - Unspecified symptoms and signs involving the genitourinary system Category: Medical (3) Dysuria: Code(s): R30.0 - Dysuria Category: Medical Plan In office urinalysis results reviewed with the patient today; as noted above. PVR 0 mL. Will obtain retroperitoneal ultrasound for further assessment evaluation. Start Myrbetriq 25 mg daily as discussed and prescribed. Start Estrace cream as discussed and prescribed. Will refer to pelvic floor therapy for further assessment evaluation. Discussed possible near future in office cystoscopy and or urodynamics if symptoms persist and/or worsen. Discussed, educated, and stressed the importance of drinking water daily. Discussed bladder triggers/irritants. Discussed at length importance of managing diabetes for improvement lower urinary tract symptoms as well as overall health and well-being. Discussed at length potential causes for lower urinary tract symptoms patient is experiencing. Follow-up in 6-8 weeks with imaging to be completed prior and PVR at next office visit; or sooner with any issues, concerns, and or questions. Orders: Orders AMB Post Void Residual by ultrasound Today R30.0 - Dysuria US retroperitoneal comp Today R39.9 - Unspecified symptoms and signs involving the genitourinary system PT Evaluation and Treatment Today N39.46 - Mixed incontinence, N81.9 - Female genital prolapse, unspecified AMB Urinalysis Automated Today Z13.9 - Encounter for screening, unspecified Medications: New mirabegron ER (Myrbetriq) 25 mg PO DAILY 30 days 30 tabs 1RF N30.10 - Interstitial cystitis (chronic) without hematuria, N32.81 - Overactive bladder, R35.1 - Nocturia, R39.15 - Urgency of urination estradiol 0.01%(0.1mg/gram) Pea-sized amount to the urethra daily for the 1st month 3 times a week thereafter. 30 days 42.5 grams 0RF Patient Instructions: The patient had an opportunity to ask questions regarding the treatment plan. All questions were answered. Physical exam, labs, and imaging were discussed and reviewed in detail. As well as risks, benefits, and discussion of treatment choices. No major barriers to understanding were identified. The patient expressed understanding and agreement with the above treatment plan. The patient was made aware they should contact our office by phone for worsening of their current condition, the appearance of new symptoms, or with any questions or concerns. Compliance is encouraged with any medications and follow up testing that is ordered. It is a privilege to be allowed the opportunity to participate in? your urological care.? Again, if you have any questions or concerns If you have any questions or concerns please do not hesitate to contact me. The office is [phone]. This note is constructed using voice recognition software. While every effort has been made to ensure accuracy medical records coordinator errors may have been included. Yours sincerely, TIEN Ballesteros Coding Level of Care Code New Pt Level 4 (92817) Diagnoses Mixed stress and urge urinary incontinence N39.46 Lower urinary tract symptoms R39.9 Dysuria R30.0 CPT Codes Post Residual Void - PVR CPT Code: [id number]-[id number] Void Residual by ultrasound ([id number])
== END 2024-02-16 11:38 | disposition home or self-care (01) ==
PROVIDERS: PCP Internal Medicine; Visit Provider Nurse Practitioner Family
DX: N39.46 Mixed incontinence (principal); R39.9 Unspecified symptoms and signs involving the genitourinary system; R30.0 Dysuria; Z13.9 Encounter for screening, unspecified
CPT/HCPCS: 99204

== ENCOUNTER → 2024-02-16 10:19 | Outpatient (BNVA) | payer OTHER, SELFPAY | PROVIDERS: PCP Internal Medicine; Visit Provider Nurse Practitioner Family | DX: N39.46 Mixed incontinence (principal); R39.9 Unspecified symptoms and signs involving the genitourinary system; R30.0 Dysuria | CPT/HCPCS: 51798; 81003; 99202 ==

== ENCOUNTER 2024-03-02 12:56 | Outpatient (AMB) | payer OTHER, SELFPAY ==
--- NOTE | 2024-03-02 13:10 | A.OFFPC_ITS ---
Vital Signs 03/02/24 13:11 03/02/24 13:47 Height 5 ft 1 in Weight 181 lb BMI 34.2 BP 140/80 H 138/80 Blood Pressure Location Lt brachial Lt brachial Position Sitting Sitting Intake Visit Reasons: dm Intake Note: Patient here for a follow up DM, c/o left ear discomfort/blockage Speech Lang Path Required: No Accompanied by: Self / Same As Patient Allergies Penicillins Allergy (Intermediate, Verified 03/02/24 13:43) DIZZINESS, RASH tramadol [TRAMADOL] Allergy (Intermediate, Verified 03/02/24 13:43) NAUSEA & VOMITING egg [Egg] Adverse Reaction (Intermediate, Verified 03/02/24 13:43) NAUSEA & VOMITING morphine Adverse Reaction (Intermediate, Verified 03/02/24 13:43) Chest Pain oxycodone Adverse Reaction (Verified 03/02/24 13:43) Dizziness FANY DRINK Allergy (Intermediate, Uncoded 03/02/24 13:43) NAUSEA & VOMITING Medication List - Last Reconciled 03/02/24 by Aure Horton MD acetaminophen ER (Tylenol Arthritis Pain) 650 mg PO Q8H PRN albuterol sulfate 2.5 mg (3 mL) inhalation Q4-6H PRN 30 days alcohol swabs pad topical amlodipine 5 mg PO DAILY aspirin 81 mg PO DAILY 90 days atenolol 50 mg PO DAILY 90 days atorvastatin 20 mg PO BEDTIME 90 days buspirone 10 mg PO BID 90 days calcium carbonate-vitamin D3 500 mg-10 mcg (400 unit) (Oyster Shell Calcium- Vitamin D3) 1 tab PO DAILY 90 days citalopram 20 mg PO fluticasone propionate 50 mcg/actuation (Flonase Allergy Relief) 2 sprays intranasal DAILY gabapentin 100 mg PO BEDTIME 30 days ibuprofen 600 mg PO Q6H PRN metformin 500 mg PO BID 90 days methylcellulose (laxative) (Citrucel) 500 mg PO DAILY mirabegron ER (Myrbetriq) 25 mg PO DAILY 30 days nebulizers (AeroEclipse II Nebulizer) As directed omeprazole 20 mg PO DAILY ondansetron HCl 4 mg PO Q8-12H PRN pioglitazone 15 mg PO DAILY walker As Directed Tobacco use date assessed: 03/02/24 Fall risk assessment: No Falls in past year Last assessed Fall Risk: 03/02/24 Dental Screening Dental Screen Date: 07/22/23 Did you have a dental visit in the last 12 months?: No Did you have a dental problem in the last 6 months where you did not have access to dental care?: No Was dental information given to patient?: Patient declined HPI HPI Comments History of Present Illness Details This is a 68-year-old female with diabetes mellitus type 2, hypertension, pure hypercholesterolemia and mild major depression that comes today for follow-up on her conditions. A1c within goal. Blood pressure borderline stable. Lipid panel will be order her LDL goal should be less than 70. Depression stable with citalopram. No chest pain or shortness of breath. Complains of bilateral ear discomfort due to ear wax and will have eardrops. [facility] Medical History (Updated 03/02/24 @ 13:52 by Aure Horton MD) COVID-19 Impaired glucose regulation Dysuria Pelvic pain Burning with urination Fibroids Hiatal hernia Right shoulder pain Exposure to COVID-19 virus Mild depression TIA (transient ischemic attack) Asthma Back pain Abdominal pain Vaginal pruritus Vitamin D deficiency Left knee pain Left ankle pain Depression with anxiety Polyarthralgia Pure hypercholesterolemia Essential hypertension Surgical History History of tooth extraction History of colonoscopy History of cyst of breast History of hemicolectomy History of cholecystectomy History of appendectomy History of exploratory laparotomy Family History Father No problems noted. Mother Hypertension Stroke Diabetes Brother Leptospirosis Brother No problems noted. Family/Other FH: mental illness Son Hypertension Social History Household Members: Spouse Housing: Apartment Alcohol intake: never Patient Tobacco Use Status: Never used Tobacco e-Cigarette/Vaping Use: Never Used Second Hand Smoke Exposure: No service: No Current occupational status: disabled Sexual orientation: Straight/Heterosexual Gender identity: Female Cognitive needs: Yes Hearing needs: No Vision needs: Yes Female Reproductive History Menstrual Age of Menarche: 9 Questionnaire Thrive Questionnaire Date Thrive assessed: 11/02/23 JESSICA-7 AMB Questionnaire JESSICA-7 Date JESSICA - 7 assessed: 11/02/23 Source: Developed by Drs. Dagoberto Mercer, Adry Valentin, Néstor Garcia and colleagues, with an educational zheng from [employer]. Review of Systems Const All systems reviewed & are unremarkable except as noted in HPI and below Card Denies chest pain at rest, Denies chest pain with activity, Denies edema, Denies irregular heart rhythm, Denies claudication, Denies dyspnea, Denies dyspnea on exertion, Denies orthopnea, Denies paroxysmal nocturnal dyspnea and Denies slow heart rate Resp Denies cough, Denies dyspnea and Denies dyspnea on exertion Physical exam (Primary Care) Vital Signs: Last Vital Signs BP 138/80 03/02/24 13:47 BMI result Body Mass Index 34.2 Tobacco/Smoking Status: Tobacco use Status Tobacco use date assessed 03/02/24 03/02/24 13:19 Patient Tobacco Use Status Never used Tobacco 03/02/24 13:19 e-Cigarette/Vaping Use Never Used 03/02/24 13:19 Thrive Assessment: Date of Thrive Assessment Date Thrive assessed 11/02/23 03/02/24 13:19 Resp Effort & Inspection: normal respiratory effort Auscultation: clear to auscultation bilaterally Cardio Jugular venous distension: no JVD Rate: regular rate Rhythm: regular rhythm Heart sounds: S1 normal heart sound present and S2 normal heart sound present Extrem General: Yes full ROM Psych Appearance: grossly normal Results AMB Hemoglobin A1c AMB Hemoglobin A1c 6.9 % Last Edit by DAVID Walton on 03/02/24 13:2 6 Results Reviewed Results Reviewed: Laboratory Last Values Hgb A1c (Clinic) 6.9 % (4.0-6.0) H 03/02/24 13:25 Assessment and Plan Assessment & Plan (1) Diabetes mellitus: Code(s): E11.9 - Type 2 diabetes mellitus without complications Plan: Continue metformin and Actos. A1c goal is equal or less than 7%. (2) Essential hypertension: Code(s): I10 - Essential (primary) hypertension Plan: Continue amlodipine. Blood pressure goal is equal or less than 130/80. (3) Mild depression: Code(s): F32.0 - Major depressive disorder, single episode, mild Plan: Continue citalopram. (4) Pure hypercholesterolemia: Code(s): E78.00 - Pure hypercholesterolemia, unspecified Plan: Continue statins. Repeat lipid panel. LDL goal is less than 70. Orders: Orders Microalbumin, Random (w Creat) Today E11.9 - Type 2 diabetes mellitus without complications Vitamin D 25-OH Total Today E55.9 - Vitamin D deficiency, unspecified Comprehensive [place]. Panel Fast Today E11.9 - Type 2 diabetes mellitus without complications AMB Hemoglobin A1c Today E11.9 - Type 2 diabetes mellitus without complications Lipid Panel Today E78.5 - Hyperlipidemia, unspecified Referrals Ear/Nose/Throat Referral H92.09 - Otalgia, unspecified ear Medications: New carbamide peroxide 6.5% (Ear Drops (carbamide peroxide)) 5 drps otic (ears) DAILY 15 mL 1RF 4 days Coding Level of Care Code Est Pt Level 4 (28032) Diagnoses Diabetes mellitus E11.9 Essential hypertension I10 Mild depression F32.0 Pure hypercholesterolemia E78.00 Time Spent (min) 22
[2024-03-02 13:11] VITALS: BP 140/80; BMI 34.2
[2024-03-02 13:47] VITALS: BP 138/80
== END 2024-03-02 13:50 | disposition home or self-care (01) ==
PROVIDERS: PCP Internal Medicine; Visit Provider Internal Medicine
DX: E11.9 Type 2 diabetes mellitus without complications (principal); I10 Essential (primary) hypertension; F32.0 Major depressive disorder, single episode, mild; E78.00 Pure hypercholesterolemia, unspecified
CPT/HCPCS: 83036; 99214

== ENCOUNTER 2024-03-04 09:16 | Outpatient (REF) | payer OTHER, SELFPAY ==
[2024-03-04 11:50] LABS: Microalbum/Creatinine Ratio Ur 21.3 ug/mg cr (<30)
[2024-03-04 12:01] LABS: Vitamin D 25-OH Total 40.2 ng/mL (>30)
[2024-03-04 12:08] LABS: Alanine Aminotransferase 14 U/L (0-31); Albumin Level 3.8 g/dL (3.5-5.0); Alkaline Phosphatase 121 U/L (39-117); Anion Gap 14 (12-20); Aspartate Amino Transferase 20 U/L (5-31); Bilirubin Total 0.4 mg/dL (0.0-1.0); Blood Urea Nitrogen 13 mg/dL (9-16); Calcium 9.1 mg/dL (8.4-10.2); Carbon Dioxide 24 mmol/L (22-29); Chloride 107 mmol/L (96-108); Cholesterol 96 mg/dL (<200); Estimated Glomerular Filt Rate > 60; Glucose Fasting 111 mg/dL (60-99); HDL Cholesterol 43 mg/dL (>40); LDL Cholesterol Calculated 40 mg/dL (<100); Potassium 4.5 mmol/L (3.3-5.1); Sodium 140 mmol/L (135-145); Total Protein 7.1 g/dL (6.5-8.0); Triglycerides 65 mg/dL (<150)
== END 2024-03-04 09:17 | disposition home or self-care (01) ==
LOC: HO.XRAY 09:16
PROVIDERS: PCP Internal Medicine; Visit Provider Nurse Practitioner Family
DX: K21.9 Gastro-esophageal reflux disease without esophagitis (principal); E78.5 Hyperlipidemia, unspecified; E55.9 Vitamin D deficiency, unspecified; E11.9 Type 2 diabetes mellitus without complications
CPT/HCPCS: 36415; 80053; 80061; 82043; 82306; 82570

== ENCOUNTER 2024-03-31 13:53 | Outpatient (AMB) | payer OTHER, SELFPAY ==
--- NOTE | 2024-03-31 14:11 | MHC.OFFVIS ---
Vital Signs 03/31/24 14:26 Height 5 ft 1 in Weight 180 lb 12.465 oz BMI 34.2 Pulse 70 Pulse Source Pulse Oximeter Pulse Oximetry (%) 100 Oxygen Delivery Method Room Air Intake Visit Reasons: follow up G.I series Intake Note: Ximena presents in office today for a scheduled FUV to discuss results. CC; Pt reports that they are experiencing a change in their sx due to running out of their medication. Pt will need a refill of the Citrucel. Pt reports that they have been noticing a change in their toileting habits and have been having to go more frequently. Commodity Loan Clerk Required: Yes Commodity Loan Clerk Name: [id number] Charly Allergies Penicillins Allergy (Intermediate, Verified 03/31/24 14:26) DIZZINESS, RASH tramadol [TRAMADOL] Allergy (Intermediate, Verified 03/31/24 14:26) NAUSEA & VOMITING egg [Egg] Adverse Reaction (Intermediate, Verified 03/31/24 14:26) NAUSEA & VOMITING morphine Adverse Reaction (Intermediate, Verified 03/31/24 14:26) Chest Pain oxycodone Adverse Reaction (Verified 03/31/24 14:26) Dizziness FANY DRINK Allergy (Intermediate, Uncoded 03/02/24 13:43) NAUSEA & VOMITING HPI HPI follow up G.I series: Details: LAST VISIT GERD (gastroesophageal reflux disease) IBS (irritable bowel syndrome) Constipation Plan Patient was encouraged to increase fluid intake and activity to promote better bowel motility. She can also start taking Citrucel to help her bulk stools. Upper GI series to rule out reflux. Patient denies any dyspepsia, dysphagia or odynophagia. Send patient for upper GI series. Discussed with patient low FODMAP diet. List of food recommended as well as list of food to avoid given to patient. I will see her in 3 months, sooner on as needed basis. Patient is agreeable to this plan and verbalizes understanding of instructions. She was given the opportunity to ask questions and all questions answered. ? Thank you for allowing me to participate in her care Orders Orders [place] upper GI series Today K21.9 Medications New methylcellulose (laxative) (Citrucel) take it with full glass of water 500 mg PO DAILY 90 tabs 2RF K59.00 TODAY'S VISIT Patient is here today for follow-up and to discuss upper GI series. Patient reports that she is taking omeprazole every morning she continues with occasional acid reflux in the afternoon. Upper GI series showed moderate reflux with possible gastritis. Patient reports that she feels like she does not emptying her bowels. Occasional postprandial loose stools. Patient denies any melena, hematochezia. Patient reports acid reflux with occasional dyspepsia without dysphagia or odynophagia. Patient denies any other GI concerning symptoms. Upper GI results discussed with patient. [facility] Medical History COVID-19 Impaired glucose regulation Dysuria Pelvic pain Burning with urination Fibroids Hiatal hernia Right shoulder pain Exposure to COVID-19 virus Mild depression TIA (transient ischemic attack) Asthma Back pain Abdominal pain Vaginal pruritus Vitamin D deficiency Left knee pain Left ankle pain Depression with anxiety Polyarthralgia Pure hypercholesterolemia Essential hypertension Surgical History History of tooth extraction History of colonoscopy History of cyst of breast History of hemicolectomy History of cholecystectomy History of appendectomy History of exploratory laparotomy Family History Father No problems noted. Mother Hypertension Stroke Diabetes Brother Leptospirosis Brother No problems noted. Family/Other FH: mental illness Son Hypertension Social History Household Members: Spouse Housing: Apartment Alcohol intake: never Patient Tobacco Use Status: Never used Tobacco e-Cigarette/Vaping Use: Never Used Second Hand Smoke Exposure: No service: No Current occupational status: disabled Sexual orientation: Straight/Heterosexual Gender identity: Female Cognitive needs: Yes Hearing needs: No Vision needs: Yes Female Reproductive History Menstrual Age of Menarche: 9 Review of Systems Const Denies weight gain and Denies weight loss ENT Reports no additional complaints, Denies dysphagia and Denies odynophagia Card Reports no additional complaints Resp Reports no additional complaints GI Denies abdominal pain, Denies belching, Denies melena, Denies bloating, Reports constipation, Denies dysphagia, Denies excessive flatus, Denies dyspepsia, Denies heartburn, Denies diarrhea, Reports loose stools, Denies nausea, Denies odynophagia and Denies vomiting Reports no additional complaints Musc Reports no additional complaints Neuro Reports no additional complaints Psych Reports no additional complaints Endo Reports no additional complaints Physical Exam Vital Signs: Last Vital Signs Pulse 70 03/31/24 14:26 Pulse Ox 100 03/31/24 14:26 Oxygen Delivery Method Room Air 03/31/24 14:26 BMI result Body Mass Index 34.2 Const General: healthy appearing and no acute distress Nutritional Appearance: obese Orientation/consciousness: patient oriented x3 Resp Effort & Inspection: normal respiratory effort, able to speak in complete sentences, no tracheal deviation and symmetric chest movement Auscultation: clear to auscultation bilaterally Cardio Rate: regular rate GI Inspection: Yes normal to inspection, No distended and Yes obesity Palpation (GI): Soft to palpation, not firm, nontender and No hepatosplenomegaly present Auscultation: normal bowel sounds General: Yes no CVA tenderness Back/Spine/Pelvis Back: no CVA tenderness Skin General skin exam: elasticity normal, turgor normal and dry skin Neuro General: patient oriented x3 Psych Appearance: grossly normal Mental Status: mental status grossly normal Results Reviewed Results Reviewed: UPPER GI SERIES IMPRESSION: 1. Mildly disorganized esophageal peristalsis 2. Moderate-sized type I hiatal hernia 3. Moderate gastroesophageal reflux 4. Multiple tiny areas of contrast pooling in the fundus, body, and antrum of the stomach that may represent small superficial aphthous ulcers. A few scattered hyperplastic polyps also suspected. Gastritis is a consideration. Recommend correlation with EGD. Assessment & Plan Assessment & Plan (1) GERD (gastroesophageal reflux disease): Code(s): K21.9 - Gastro-esophageal reflux disease without esophagitis Category: Medical Qualifiers: Esophagitis presence: esophagitis presence not specified Qualified Code(s): K21.9 - Gastro-esophageal reflux disease without esophagitis (2) IBS (irritable bowel syndrome): Code(s): K58.9 - Irritable bowel syndrome without diarrhea Qualifiers: Irritable bowel syndrome type: with both diarrhea and constipation Qualified Code(s): K58.2 - Mixed irritable bowel syndrome (3) Constipation: Code(s): K59.00 - Constipation, unspecified Qualifiers: Constipation type: slow transit constipation Qualified Code(s): K59.01 - Slow transit constipation Plan Patient had significant reflux and possible gastritis seen on upper GI series. Will increase omeprazole to twice a day. Avoid dietary triggers and late night snacking. Staying upright for minimum 3 hours after meals discussed with patient. Patient can continue taking Citrucel. Patient ran out of Senokot and Colace. Patient will start senna and Colace in the evening. Increase fluid intake and activity to promote better bowel motility. Patient will return in 2 months if patient will continue with symptoms will send her for upper endoscopy. Patient is agreeable to this plan and verbalizes understanding of instructions. She was given the opportunity to ask questions and all questions answered. Thank you for allowing me to participate in her care Medications: New docusate sodium 100 mg PO BEDTIME 90 caps 3RF K59.00 - Constipation, unspecified sennosides (Natural Senna Laxative) 17.2 mg (2 x 8.6 mg) PO BEDTIME 90 tabs 3RF constipation K59.00 - Constipation, unspecified Changed From omeprazole 20 mg PO DAILY 90 caps 3RF To omeprazole 20 mg PO BID 180 caps 3RF Coding Level of Care Code Est Pt Level 4 (81736) Diagnoses Gastroesophageal reflux disease, unspecified whether esophagitis present K21.9 Esophagitis presence: esophagitis presence not specified Irritable bowel syndrome with both constipation and diarrhea K58.2 Irritable bowel syndrome type: with both diarrhea and constipation Slow transit constipation K59.01 Constipation type: slow transit constipation Time Spent (min) 35 Comment 20 minutes spent with patient and additional 15 minutes spent reviewing her records
[2024-03-31 14:26] VITALS: PULSE 70; O2SAT 100; BMI 34.2
== END 2024-03-31 14:49 | disposition home or self-care (01) ==
PROVIDERS: PCP Internal Medicine; Visit Provider Nurse Practitioner Family
DX: K21.9 Gastro-esophageal reflux disease without esophagitis (principal); K58.2 Mixed irritable bowel syndrome; K59.01 Slow transit constipation
CPT/HCPCS: 99214

== ENCOUNTER → 2024-03-31 13:53 | Outpatient (BNVA) | payer OTHER, SELFPAY | PROVIDERS: PCP Internal Medicine; Visit Provider Nurse Practitioner Family | DX: K21.9 Gastro-esophageal reflux disease without esophagitis (principal); K58.2 Mixed irritable bowel syndrome; K59.01 Slow transit constipation | CPT/HCPCS: 99212 ==

== ENCOUNTER 2024-05-13 13:45 | Outpatient (AMB) | payer OTHER, SELFPAY ==
--- NOTE | 2024-05-13 13:52 | AM.OFFWIN_ITS ---
Intake Vital Signs 05/13/24 13:55 Height 5 ft 1 in Weight 186 lb BMI 35.1 BP 132/74 Blood Pressure Location Rt brachial Position Sitting Pulse 54 Pulse Source Pulse Oximeter Temp 98.4 F Temp Source Oral Pulse Oximetry (%) 97 Oxygen Delivery Method Room Air Intake Visit Reasons: right eye swelling/pain Intake Note: pt is here c/o RT eye swelling and pain. Patient Tobacco Use Status: Never used Tobacco Allergies Penicillins Allergy (Intermediate, Verified 05/13/24 13:52) DIZZINESS, RASH tramadol [TRAMADOL] Allergy (Intermediate, Verified 05/13/24 13:52) NAUSEA & VOMITING egg [Egg] Adverse Reaction (Intermediate, Verified 05/13/24 13:52) NAUSEA & VOMITING morphine Adverse Reaction (Intermediate, Verified 05/13/24 13:52) Chest Pain oxycodone Adverse Reaction (Verified 05/13/24 13:52) Dizziness FANY DRINK Allergy (Intermediate, Uncoded 05/13/24 13:52) NAUSEA & VOMITING Do you need a note to return to daycare/school/sports/work: No HPI right eye swelling/pain HPI Details 68-year-old female patient presents toda with a 2 day history of right lower eyelid swelling and white/green discharge from eye. Denies any trauma to eye or sensation of something in the ete. Denies any blurry vision or photophobia. Does not wear contacts. No known exposure to anyone with similar symptoms. [facility] Medical History COVID-19 Impaired glucose regulation Dysuria Pelvic pain Burning with urination Fibroids Hiatal hernia Right shoulder pain Exposure to COVID-19 virus Mild depression TIA (transient ischemic attack) Asthma Back pain Abdominal pain Vaginal pruritus Vitamin D deficiency Left knee pain Left ankle pain Depression with anxiety Polyarthralgia Pure hypercholesterolemia Essential hypertension Surgical History History of tooth extraction History of colonoscopy History of cyst of breast History of hemicolectomy History of cholecystectomy History of appendectomy History of exploratory laparotomy Family History Father No problems noted. Mother Hypertension Stroke Diabetes Brother Leptospirosis Brother No problems noted. Family/Other FH: mental illness Son Hypertension Social History Household Members: Spouse Housing: Apartment Alcohol intake: never Patient Tobacco Use Status: Never used Tobacco e-Cigarette/Vaping Use: Never Used Second Hand Smoke Exposure: No service: No Current occupational status: disabled Sexual orientation: Straight/Heterosexual Gender identity: Female Cognitive needs: Yes Hearing needs: No Vision needs: Yes Female Reproductive History Menstrual Age of Menarche: 9 Review of Systems Const All systems reviewed & are unremarkable except as noted in HPI and below Physical Exam Vital Signs: Last Vital Signs Temp 98.4 F 05/13/24 13:55 Pulse 54 05/13/24 13:55 BP 132/74 05/13/24 13:55 Pulse Ox 97 05/13/24 13:55 Oxygen Delivery Method Room Air 05/13/24 13:55 BMI result Body Mass Index 35.1 Const General: cooperative, healthy appearing and no acute distress HEENT Head: Yes normal to inspection Eyes Visual Mazariegos: normal visual mazariegos by confrontation Alignment and Position: alignment normal Eyelids: Yes eyelid abnormality (right lower lid swelling) Conjunctivae: conjunctival abnormal right discharge purulent Sclerae: sclerae normal Corneas: corneas normal EOM: EOMs intact bilaterally Direct Ophthalmoscopy: normal light reflex and no photophobia Neck Neck: Yes no lymphadenopathy Resp Effort & Inspection: normal respiratory effort Skin General skin exam: no rashes or lesions noted Psych Appearance: grossly normal Mental Status: mental status grossly normal Speech and movement: Normal speech and movement present Assessment & Plan Assessment & Plan (1) Blepharitis of right lower eyelid: Code(s): H01.002 - Unspecified blepharitis right lower eyelid Qualifiers: Blepharitis type: unspecified type Qualified Code(s): H01.002 - Unspecified blepharitis right lower eyelid Plan: Will start patient on erythromycin ointment. Reviewed use, indications, possible side effects of medication. Advised warm compresses to the right eye and good hand hygiene. If she does not improve with treatment, or if symptoms worsen/new symptoms develop, she should return to the clinic or see pillar worker for further evaluation. She verbalizes understanding and agrees to plan. Phone agent based modeler utilized for visit - Charly, #[id number] . Medications: New erythromycin Apply 0.5 inch to lower lid of right eye 4 times daily for 5 days 1 appl ophthalmic (eye) QID 5 days 3.5 grams 1RF H01.002 - Unspecified blepharitis right lower eyelid Coding Level of Care Code Est Pt Level 4 (89941) Diagnoses Blepharitis of right lower eyelid, unspecified type H01.002 Blepharitis type: unspecified type
[2024-05-13 13:55] VITALS: BP 132/74; PULSE 54; TEMP 36.9; O2SAT 97; BMI 35.1
== END 2024-05-13 14:28 | disposition home or self-care (01) ==
PROVIDERS: PCP Internal Medicine; Visit Provider Nurse Practitioner Family
DX: H01.002 Unspecified blepharitis right lower eyelid (principal)
CPT/HCPCS: 99214

== ENCOUNTER 2024-05-16 10:47 | Outpatient (REF) | payer OTHER, SELFPAY ==
--- NOTE | ~2024-05-16 | US_ITS ---
EXAMINATION: US RETROPERITONEAL LIMITED (RENAL ONLY) CLINICAL INFORMATION: Unspecified symptoms and signs involving the genitourinary system. COMPARISON: CT abdomen and pelvis 10/16/2023. X-ray abdomen KUB 05/12/2022. Ultrasound abdomen complete 09/03/2016. TECHNIQUE: Real-time imaging of the kidneys. Limited visualization due to bowel gas. FINDINGS: RIGHT KIDNEY: 9.2 x 4.4 x 4.9 cm (SAG x AP x TRV). No hydronephrosis. No renal calculi. Renal cortical thickness is normal. Limited visualization. LEFT KIDNEY: 9.0 x 4.6 x 4.2 cm (SAG x AP x TRV). No hydronephrosis. No renal calculi. Renal cortical thickness is normal. Limited visualization. Please note that per speech language pathology assistant note, patient was not prepped for bladder ultrasound and exam has been rescheduled. ADDITIONAL FINDINGS: A 0.8 x 0.7 x 0.7 cm hypoechoic lesion in the right hepatic lobe is incidentally noted on limited images of the right hepatic lobe. This lesion was not appreciated on CT scan of 10/16/2023. US/US renal BI IMPRESSION: 1. No hydronephrosis. No renal calculi. 2. A 0.8 cm hypoechoic lesion in the right hepatic lobe is incidentally noted on limited images of the right hepatic lobe. This lesion was not appreciated on CT scan of 10/16/2023.
== END 2024-05-16 10:48 | disposition home or self-care (01) ==
LOC: HO.US 10:47
PROVIDERS: PCP Internal Medicine; Visit Provider Advanced Practice Midwife
DX: R39.9 Unspecified symptoms and signs involving the genitourinary system (principal)
CPT/HCPCS: 76775

== ENCOUNTER 2024-05-17 14:46 | Outpatient (REF) | payer OTHER, SELFPAY ==
--- NOTE | ~2024-05-17 | US_ITS ---
EXAMINATION: US PELVIS CLINICAL INFORMATION: Fibroid stability, postmenopausal. COMPARISON: 06/16/2023. TECHNIQUE: Ultrasound of the pelvis is performed using both transabdominal and transvaginal transducers along with Doppler. Transvaginal imaging is performed due to inadequate visualization transabdominally. FINDINGS: The uterus measures 6.8 x 4.3 x 4.1 cm, volume 62.8 mL. A 2.7 x 2.3 x 2.8 cm fibroid, previously 3.6 x 3.5 x 2.4 cm. A 1.2 x 0.9 x 1.0 cm fibroid was not measured on the prior study. Endometrium not visualized due to fibroids and uterine heterogeneity. No significant free fluid. Nabothian cysts. Right ovary measures 1.8 x 1.1 x 1.1 cm, volume 1.1 mL. Left ovary measures 1.4 x 1.0 x 1.0 cm, volume 0.7 mL. Bilateral ovaries are grossly unremarkable. US/US pelvic and transvaginal IMPRESSION: Fibroid uterus, likely submucosal fibroid, although visualization of endometrium poor due to uterine fibroids and heterogeneity.
== END 2024-05-17 14:47 | disposition home or self-care (01) ==
LOC: HO.US 14:46
PROVIDERS: PCP Internal Medicine; Visit Provider Advanced Practice Midwife
DX: Z13.89 Encounter for screening for other disorder (principal)
CPT/HCPCS: 76830; 76856

== ENCOUNTER 2024-05-17 18:19 | Emergency (ER) | payer OTHER, SELFPAY ==
[2024-05-17 19:26] VITALS: BP 145/70; PULSE 56; RESP 16; TEMP 36.6; O2SAT 100; BMI 33.3
--- NOTE | 2024-05-17 19:27 | ED.EYEPROB ---
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 She noticed her right upper eyelid has been more swollen and she woke up with drainage this morning. She reports pain w/ blinking. No vision changes. No FB sensation. chief complaint: eye pain Onset (ago): day(s) Onset description: gradual Duration: progressively worsening Location: right eye Eye Symptoms: discharge Place: home Mechanism: none Severity: moderate If Pain, Quality: aching Associated symptoms: headache Treatments Prior to Arrival: none Related Data Patient tetanus UTD: Yes Home Medications ?Medication ?Instructions ?Recorded ?Confirmed alcohol swabs pad topical 09/11/20 03/02/24 citalopram 20 mg tablet 20 mg PO 11/09/23 03/02/24 pioglitazone 15 mg tablet 15 mg PO DAILY 02/16/24 03/02/24 Previous Rx's ?Medication ?Instructions ?Recorded acetaminophen 650 mg 650 mg PO Q8H PRN pain #90 tabs 10/23/20 tablet,extended release (Tylenol Arthritis Pain) nebulizers (AeroEclipse II #1 ea 04/01/21 Nebulizer) gabapentin 100 mg capsule 100 mg PO BEDTIME 30 days #30 caps 09/06/21 walker #1 ea 11/08/21 fluticasone propionate 50 2 spray intranasal DAILY #16 grams 12/04/22 mcg/actuation nasal spray,suspension (Flonase Allergy Relief) albuterol sulfate 2.5 mg/3 mL 2.5 mg (3 mL) inhalation Q4-6H PRN 01/29/23 (0.083 %) solution for nebulization shortness of breath or wheezing 30 days #75 mL ibuprofen 600 mg tablet 600 mg PO Q6H PRN fever or pain 01/31/23 #30 tabs metformin 500 mg tablet 500 mg PO BID 90 days #180 tabs 06/25/23 ondansetron HCl 4 mg tablet 4 mg PO Q8-12H PRN nausea and 10/16/23 vomiting #14 tabs amlodipine 5 mg tablet 5 mg PO DAILY #30 tabs 11/02/23 methylcellulose (laxative) 500 mg 500 mg PO DAILY #90 tabs 11/09/23 tablet (Citrucel) aspirin 81 mg tablet,delayed 81 mg PO DAILY 90 days #90 tabs 12/06/23 release atenolol 50 mg tablet 50 mg PO DAILY 90 days #90 tabs 12/06/23 atorvastatin 20 mg tablet 20 mg PO BEDTIME 90 days #90 tabs 12/06/23 calcium carbonate 500 mg-vitamin 1 tab PO DAILY 90 days #90 tabs 02/04/24 D3 10 mcg (400 unit) tablet (Oyster Shell Calcium-Vitamin D3) mirabegron 25 mg tablet,extended 25 mg PO DAILY 30 days #30 tabs 02/16/24 release 24 hr (Myrbetriq) carbamide peroxide 6.5 % ear drops 5 drp otic (ears) DAILY 4 days #15 03/02/24 (Ear Drops (carbamide peroxide)) mL docusate sodium 100 mg capsule 100 mg PO BEDTIME #90 caps 03/31/24 omeprazole 20 mg capsule,delayed 20 mg PO BID #180 caps 03/31/24 release sennosides 8.6 mg tablet (Natural 17.2 mg (2 x 8.6 mg) PO BEDTIME 03/31/24 Senna Laxative) constipation #90 tabs buspirone 10 mg tablet 10 mg PO BID 90 days #180 tabs 04/05/24 losartan 25 mg tablet 25 mg PO DAILY 90 days #90 tabs 04/05/24 erythromycin 5 mg/gram (0.5 %) eye 1 appl ophthalmic (eye) QID 5 days 05/13/24 ointment #3.5 grams erythromycin 5 mg/gram (0.5 %) eye 0.5 inch ophthalmic (eye) BID #3.5 05/17/24 ointment grams Allergies Allergy/AdvReac Type Severity Reaction Status Date / Time Penicillins Allergy Intermediate DIZZINESS, Verified 05/17/24 19:31 RASH tramadol [TRAMADOL] Allergy Intermediate NAUSEA & Verified 05/17/24 19:31 VOMITING egg [Egg] AdvReac Intermediate NAUSEA & Verified 05/17/24 19:31 VOMITING morphine AdvReac Intermediate Chest Pain Verified 05/17/24 19:31 oxycodone AdvReac Dizziness Verified 05/17/24 19:31 FANY DRINK Allergy Intermediate NAUSEA & Uncoded 05/13/24 13:52 VOMITING Review of Systems Review of Systems: Yes all other systems are reviewed and are negative PMFSH Past Medical History Medical History COVID-19 Impaired glucose regulation Dysuria Pelvic pain Burning with urination Fibroids Hiatal hernia Right shoulder pain Exposure to COVID-19 virus Mild depression TIA (transient ischemic attack) Asthma Back pain Abdominal pain Vaginal pruritus Vitamin D deficiency Left knee pain Left ankle pain Depression with anxiety Polyarthralgia Pure hypercholesterolemia Essential hypertension Surgical History History of tooth extraction History of colonoscopy History of cyst of breast History of hemicolectomy History of cholecystectomy History of appendectomy History of exploratory laparotomy Family History Family History Father No problems noted. Mother Hypertension Stroke Diabetes Brother Leptospirosis Brother No problems noted. Family/Other FH: mental illness Son Hypertension Social History Social History Household Members: Spouse Housing: Apartment Alcohol intake: never Patient Tobacco Use Status: Never used Tobacco e-Cigarette/Vaping Use: Never Used Second Hand Smoke Exposure: No service: No Current occupational status: disabled Sexual orientation: Straight/Heterosexual Gender identity: Female Cognitive needs: Yes Hearing needs: No Vision needs: Yes Physical Exam Vital Signs: Vital Signs: Last Vital Signs Temp 97.8 F 05/17/24 19:26 Pulse 56 05/17/24 19:26 Resp 16 05/17/24 19:26 BP 145/70 H 05/17/24 19:26 Pulse Ox 100 05/17/24 19:26 O2 Del Method Room Air 05/17/24 19:26 BMI result Body Mass Index 33.3 Const: General: cooperative, healthy appearing, comfortable and no acute distress Nutritional Appearance: average body habitus and well nourished Orientation/consciousness: oriented to person and patient oriented x3 Limitations: no limitations HEENT: Head: Yes normal to inspection, Yes normocephalic and Yes atraumatic Ears: hearing grossly normal bilaterally General nose exam: Normal external nose present Face and sinus: Yes normal facial exam Mouth: Normal oral and palatal mucosa present Teeth and gingiva: dentition normal Throat: Yes posterior oropharynx normal Eyes: Alignment and Position: alignment normal and position normal Periorbital: periorbital findings normal Eyelids: Yes eyelid abnormality (upper right eyelid w/ mild generalized swelling and redness, pustule ) Conjunctivae: conjunctivae normal Sclerae: sclerae normal Corneas: corneas normal Pupils: Equal, round and reactive pupils present EOM: EOMs intact bilaterally Neck: Neck: Yes normal visual inspection Chest: Chest palpation & inspection: normal inspection of the chest Resp: Effort & Inspection: normal respiratory effort and able to speak in complete sentences Skin: General skin exam: no rashes or lesions noted Neuro: General: oriented to person, patient oriented x3 and gait normal Cranial nerves: Yes Equal, round and reactive pupils present Cognition (Neuro): normal cognition Extrem: General: Yes normal to inspection Psych: Appearance: grossly normal and well kempt Mental Status: mental status grossly normal Speech and movement: Normal speech and movement present Medical Decision Making Medical Decision Making MDM Narrative: 68 yo female presenting to the ER for evaluation of right eye pain w upper eyelid swelling. exam is c/w external hordeolum. no conjunctivitis, injection or icterus. pain is localized to the eyelid. low suspicion for glaucoma. no trauma or vision changes. at this time comfortable with discharge home w/ supportive management of stye. discussed using medical staff specialist. stable for d/c Differential Diagnosis Differential Diagnoses: The differential diagnosis associated with the presentation includes hordeolum, iritis, corneal abrasion, preseptal cellulitis, glaucoma less likely External Record Review External record reviewed: Outpatient record and Prior outpatient labs Prescription Management I considered prescription management with: Pain Medication and Antibiotic Chronic Conditions Patient?s care impacted by: Diabetes Critical Care Time Critical Care Time Critical Care Time: No Discharge Plan Discharge Clinical Impression: External hordeolum Qualifiers: Laterality: right Eyelid: upper Qualified Code(s): H00.011 - Hordeolum externum right upper eyelid Patient Disposition: Home, Self-Care Instructions: Stye (ED) Additional Instructions: use warm compresses several times per day on the right eye use the prescribed antibiotic ointment as directed follow up with your eye doctor or the eye doctor below if no improvement If you develop new or worsening symptoms call 911 or come back to the ER for further evaluation. Prescriptions: New erythromycin 5 mg/gram (0.5 %) ointment 0.5 inch ophthalmic (eye) BID Qty: 3.5 0RF No Action (DME) AeroEclipse II Nebul[place] [facility] [place] Instructions .ROUTE .MEDSUPPLY Qty: 1 0RF Rx Instructions: As directed gabapentin 100 mg capsule 100 mg PO BEDTIME 30 Days Qty: 30 6RF (DME) walker Mis See Rx Instructions .ROUTE .MEDSUPPLY Qty: 1 0RF Rx Instructions: As Directed albuterol sulfate 2.5 mg /3 mL (0.083 %) solution for nebulization 2.5 mg inhalation Q4-6H PRN (Reason: shortness of breath or wheezing) 30 Days Qty: 75 2RF atorvastatin 20 mg tablet 20 mg PO BEDTIME 90 Days Qty: 90 1RF atenolol 50 mg tablet 50 mg PO DAILY 90 Days Qty: 90 2RF aspirin 81 mg tablet,delayed release (DR/EC) 81 mg PO DAILY 90 Days Qty: 90 3RF calcium carbonate-vitamin D3 [Oyster Shell Calcium-Vit D3] 500 mg-10 mcg (400 unit) tablet 1 tab PO DAILY 90 Days Qty: 90 2RF buspirone 10 mg tablet 10 mg PO BID 90 Days Qty: 180 1RF losartan 25 mg tablet 25 mg PO DAILY 90 Days Qty: 90 1RF fluticasone propionate [Flonase Allergy Relief] 50 mcg/actuation spray,suspension 2 spray intranasal DAILY Qty: 16 0RF Rx Instructions: administer into each nostril ondansetron HCl 4 mg tablet 4 mg PO Q8-12H PRN (Reason: nausea and vomiting) Qty: 14 0RF ibuprofen 600 mg tablet 600 mg PO Q6H PRN (Reason: fever or pain) Qty: 30 0RF alcohol swabs Pads, Medicated topical citalopram 20 mg tablet 20 mg PO amlodipine 5 mg tablet 5 mg PO DAILY Qty: 30 6RF erythromycin 5 mg/gram (0.5 %) ointment 1 appl ophthalmic (eye) QID 5 Days Qty: 3.5 1RF Rx Instructions: Apply 0.5 inch to lower lid of right eye 4 times daily for 5 days metformin 500 mg tablet 500 mg PO BID 90 Days Qty: 180 1RF Ear Drops (carbamide peroxide) 6.5 % drops 5 drp otic (ears) DAILY 4 Days Qty: 15 1RF acetaminophen [Tylenol Arthritis Pain] 650 mg tablet extended release 650 mg PO Q8H PRN (Reason: pain) Qty: 90 4RF Citrucel 500 mg tablet 500 mg PO DAILY Qty: 90 2RF Rx Instructions: take it with full glass of water pioglitazone 15 mg tablet 15 mg PO DAILY Myrbetriq 25 mg tablet extended release 24 hr 25 mg PO DAILY 30 Days Qty: 30 1RF omeprazole 20 mg capsule,delayed release(DR/EC) 20 mg PO BID Qty: 180 3RF docusate sodium 100 mg capsule 100 mg PO BEDTIME Qty: 90 3RF sennosides [Natural Senna Laxative] 8.6 mg tablet 17.2 mg PO BEDTIME Qty: 90 3RF Referrals: Yannick Granados [Physician] - Aure Barrett MD [Primary Care Provider] - Print Language: Slovenian
[2024-05-17 19:36] VITALS: BP 145/70; PULSE 56; RESP 16; TEMP 36.6; O2SAT 100
== END 2024-05-17 19:43 | disposition home or self-care (01) ==
LOC: HO.ED 19:35
PROVIDERS: Emergency Provider Emergency Medicine; PCP Internal Medicine
DX: H00.11 Chalazion right upper eyelid (principal); D25.9 Leiomyoma of uterus, unspecified; R51.9 Headache, unspecified; Z79.899 Other long term (current) drug therapy
CPT/HCPCS: 76830; 76856; 99282; 99283; 99284

== ENCOUNTER 2024-05-19 14:10 | Outpatient (REF) | payer OTHER, SELFPAY ==
--- NOTE | ~2024-05-19 | US_ITS ---
EXAMINATION: US PELVIS LIMITED (BLADDER) CLINICAL INFORMATION: Dysuria. Uterine fibroid. COMPARISON: Renal ultrasound 05/16/2024. CT abdomen and pelvis 10/16/2023. X-ray KUB 05/12/2022. Ultrasound abdomen complete 09/03/2016. TECHNIQUE: Real-time imaging of the bladder. FINDINGS: BLADDER: Well-distended and unremarkable. Bilateral ureteral jets are demonstrated. Prevoid bladder volume is 349.0 mL. Postvoid bladder volume is 118.4 mL. ADDITIONAL FINDINGS: Prominent uterus bulging/protruding into the bladder, possibly related to fibroids could be evaluated with dedicated pelvic ultrasound. US/US bladder IMPRESSION: 1. Postvoid bladder volume is 118.4 mL. 2. Prominent uterus bulging/protruding into the bladder, possibly related to fibroids could be evaluated with dedicated pelvic ultrasound.
== END 2024-05-19 14:11 | disposition home or self-care (01) ==
LOC: HO.US 14:10
PROVIDERS: PCP Internal Medicine; Visit Provider Nurse Practitioner Family
DX: R30.0 Dysuria (principal); D25.9 Leiomyoma of uterus, unspecified
CPT/HCPCS: 76857

== ENCOUNTER 2024-05-31 13:39 | Outpatient (AMB) | payer OTHER, SELFPAY ==
--- NOTE | 2024-05-31 13:46 | MHC.OFFVIS ---
Intake Visit Reasons: 8w/US/PVR(set) Intake Note: Patient presents today for follow up visit on: Incontinence and ultrasound results Imagin05/19/24 Urology Medications: none Blood Thinner: aspirin PVR: 62ml's Cell Plasterer Required: Yes Cell Plasterer Name: Robin [id number] Accompanied by: Self / Same As Patient Allergies Penicillins Allergy (Intermediate, Verified 05/31/24 14:11) DIZZINESS, RASH tramadol [TRAMADOL] Allergy (Intermediate, Verified 05/31/24 14:11) NAUSEA & VOMITING egg [Egg] Adverse Reaction (Intermediate, Verified 05/31/24 14:11) NAUSEA & VOMITING morphine Adverse Reaction (Intermediate, Verified 05/31/24 14:11) Chest Pain oxycodone Adverse Reaction (Verified 05/31/24 14:11) Dizziness FANY DRINK Allergy (Intermediate, Uncoded 05/31/24 14:11) NAUSEA & VOMITING Medication List - Last Reconciled 05/31/24 by MAGAN Ballesteros-KIERA acetaminophen ER (Tylenol Arthritis Pain) 650 mg PO Q8H PRN albuterol sulfate 2.5 mg (3 mL) inhalation Q4-6H PRN 30 days alcohol swabs pad topical amlodipine 5 mg PO DAILY aspirin 81 mg PO DAILY 90 days atenolol 50 mg PO DAILY 90 days atorvastatin 20 mg PO BEDTIME 90 days buspirone 10 mg PO BID 90 days calcium carbonate-vitamin D3 500 mg-10 mcg (400 unit) (Oyster Shell Calcium-Vitamin D3) 1 tab PO DAILY 90 days carbamide peroxide 6.5% (Ear Drops (carbamide peroxide)) 5 drps otic (ears) DAILY 4 days citalopram 20 mg PO docusate sodium 100 mg PO BEDTIME erythromycin 0.5 inches ophthalmic (eye) BID erythromycin 1 appl ophthalmic (eye) QID 5 days fluticasone propionate 50 mcg/actuation (Flonase Allergy Relief) 2 sprays intranasal DAILY gabapentin 100 mg PO BEDTIME 30 days ibuprofen 600 mg PO Q6H PRN losartan 25 mg PO DAILY 90 days metformin 500 mg PO BID 90 days methylcellulose (laxative) (Citrucel) 500 mg PO DAILY mirabegron ER (Myrbetriq) 25 mg PO DAILY 30 days nebulizers (AeroEclipse II Nebulizer) As directed omeprazole 20 mg PO BID ondansetron HCl 4 mg PO Q8-12H PRN pioglitazone 15 mg PO DAILY sennosides (Natural Senna Laxative) 17.2 mg (2 x 8.6 mg) PO BEDTIME walker As Directed HPI Comments Details: Ximena is a 68-year-old Mongolian-speaking female patient of Dr. Bartlett who was accompanied by her PC at today's office visit. She has a past medical history of COVID-19, dysuria, diabetes, pelvic pain, fibroids, hiatal hernia, TIA, depression, asthma, chronic back pain, polyarthralgia, hypercholesteremia, and hypertension. She presents to the office today for follow-up. Of note, patient was seen approximately 2 months ago as a new patient for ongoing lower urinary tract symptoms at which time a retroperitoneal ultrasound was ordered for further assessment evaluation in the patient was started on Myrbetriq 25 mg daily. In discussion with the patient today she reports noting improvement in episodes of mixed urinary incontinence she had been experiencing. Recent retroperitoneal ultrasound results reviewed with the patient today. Bilateral kidneys no hydronephrosis or renal calculi noted. 0.8 cm hypoechoic lesion in the right hepatic lobe. The bladder is well distended unremarkable. Bilateral ureteral jets are demonstrated. Pre void bladder volume is approximately 350 mL. Postvoid bladder volume is approximately 120 mL. Prominent uterus bulging/protruding into the bladder possibly related to fibroids could be evaluated with dictated pelvic ultrasound. In discussion with the patient today she reports following up with transportation operations manager and will discuss at her upcoming appointment later this week. Discussed following up with PCP for newly noted hepatic lesion. Unable to obtain urine for urinalysis however PVR 62 mL. She reports to be happy with current voiding parameters on Myrbetriq and would like to continue. She denies hematuria,foul smelling urine, changes to urinary stream, flank pain, fever, and or chills. She otherwise denies any other issues or concerns at this time. [facility] Medical History COVID-19 Impaired glucose regulation Dysuria Pelvic pain Burning with urination Fibroids Hiatal hernia Right shoulder pain Exposure to COVID-19 virus Mild depression TIA (transient ischemic attack) Asthma Back pain Abdominal pain Vaginal pruritus Vitamin D deficiency Left knee pain Left ankle pain Depression with anxiety Polyarthralgia Pure hypercholesterolemia Essential hypertension Surgical History History of tooth extraction History of colonoscopy History of cyst of breast History of hemicolectomy History of cholecystectomy History of appendectomy History of exploratory laparotomy Family History Father No problems noted. Mother Hypertension Stroke Diabetes Brother Leptospirosis Brother No problems noted. Family/Other FH: mental illness Son Hypertension Social History Household Members: Spouse Housing: Apartment Alcohol intake: never Patient Tobacco Use Status: Never used Tobacco e-Cigarette/Vaping Use: Never Used Second Hand Smoke Exposure: No service: No Current occupational status: disabled Sexual orientation: Straight/Heterosexual Gender identity: Female Cognitive needs: Yes Hearing needs: No Vision needs: Yes Female Reproductive History Menstrual Age of Menarche: 9 Review of Systems Const Reports no additional complaints Eyes Reports no additional complaints ENT Reports no additional complaints Card Reports as per HPI Resp Reports as per HPI GI Reports as per HPI Reports as per HPI Musc Reports as per HPI Neuro Reports as per HPI Psych Reports as per HPI Endo Reports no additional complaints Bin/Lymph Reports no additional complaints Aller/Immun Reports no additional complaints Physical Exam Const General: cooperative, healthy appearing, comfortable, no acute distress, well developed, alert and awake Nutritional Appearance: overweight Orientation/consciousness: patient oriented x3 Limitations: no limitations HEENT Head: Yes normal to inspection, Yes normocephalic and Yes atraumatic Ears: hearing grossly normal bilaterally Eyes General: appearance normal, both eyes and all related structures Neck Neck: Yes normal visual inspection and Yes trachea midline Chest Chest palpation & inspection: normal inspection of the chest Resp Effort & Inspection: normal respiratory effort and able to speak in complete sentences Cardio Rate: regular rate GI Inspection: Yes normal to inspection General: Yes no CVA tenderness Back/Spine/Pelvis Back: no CVA tenderness Skin General skin exam: no rashes or lesions noted Neuro General: patient oriented x3 Extrem General: Yes normal to inspection Psych Appearance: grossly normal and well kempt Mental Status: mental status grossly normal Speech and movement: Normal speech and movement present and Clear speech present Affect: normal affect Attitude: cooperative Thought process: Normal thought process present Thought content: Normal thought content present Insight: Fair insight present (Psych) Judgement: Fair judgement present (Psych) Office Procedures Post Void Residual Post Residual Void Post Void Residual (PVR): [id number] Void Residual by ultrasound Results Reviewed Results Reviewed: Date of Service: 05/16/24 EXAMINATION: US RETROPERITONEAL LIMITED (RENAL ONLY) FINDINGS: RIGHT KIDNEY: 9.2 x 4.4 x 4.9 cm (SAG x AP x TRV). No hydronephrosis. No renal calculi. Renal cortical thickness is normal. Limited visualization. LEFT KIDNEY: 9.0 x 4.6 x 4.2 cm (SAG x AP x TRV). No hydronephrosis. No renal calculi. Renal cortical thickness is normal. Limited visualization. Please note that per auxiliary operator note, patient was not prepped for bladder ultrasound and exam has been rescheduled. ADDITIONAL FINDINGS: A 0.8 x 0.7 x 0.7 cm hypoechoic lesion in the right hepatic lobe is incidentally noted on limited images of the right hepatic lobe. This lesion was not appreciated on CT scan of 10/16/2023. IMPRESSION: 1. No hydronephrosis. No renal calculi. 2. A 0.8 cm hypoechoic lesion in the right hepatic lobe is incidentally noted on limited images of the right hepatic lobe. This lesion was not appreciated on CT scan of 10/16/2023. Date of Service: 05/19/24 EXAMINATION: US PELVIS LIMITED (BLADDER) FINDINGS: BLADDER: Well-distended and unremarkable. Bilateral ureteral jets are demonstrated. Prevoid bladder volume is 349.0 mL. Postvoid bladder volume is 118.4 mL. ADDITIONAL FINDINGS: Prominent uterus bulging/protruding into the bladder, possibly related to fibroids could be evaluated with dedicated pelvic ultrasound. IMPRESSION: 1. Postvoid bladder volume is 118.4 mL. 2. Prominent uterus bulging/protruding into the bladder, possibly related to fibroids could be evaluated with dedicated pelvic ultrasound. Assessment & Plan Assessment & Plan (1) Mixed stress and urge urinary incontinence: Code(s): N39.46 - Mixed incontinence Category: Medical (2) Lower urinary tract symptoms: Code(s): R39.9 - Unspecified symptoms and signs involving the genitourinary system Category: Medical Plan Unable to obtain urine for urinalysis however PVR 62ml's Continue Myrbetriq; refill provided. Recent retroperitoneal ultrasound results reviewed with the patient today; as noted above Patient reports be happy with current voiding parameters. Will follow-up with transportation operations manager as planned. Follow-up in 6 months with PVR; or sooner with any issues, concerns, and or questions. Orders: Orders AMB Urinalysis Automated Today Z13.9 - Encounter for screening, unspecified AMB Post Void Residual by ultrasound Today N39.46 - Mixed incontinence Medications: Changed From mirabegron ER (Myrbetriq) 25 mg PO DAILY 30 days 30 tabs 1RF N30.10 - Interstitial cystitis (chronic) without hematuria, N32.81 - Overactive bladder, R35.1 - Nocturia, R39.15 - Urgency of urination To mirabegron ER (Myrbetriq) 25 mg PO DAILY 90 days 90 tabs 2RF N30.10 - Interstitial cystitis (chronic) without hematuria, N32.81 - Overactive bladder, R35.1 - Nocturia, R39.15 - Urgency of urination Patient Instructions: The patient had an opportunity to ask questions regarding the treatment plan. All questions were answered. Physical exam, labs, and imaging were discussed and reviewed in detail. As well as risks, benefits, and discussion of treatment choices. No major barriers to understanding were identified. The patient expressed understanding and agreement with the above treatment plan. The patient was made aware they should contact our office by phone for worsening of their current condition, the appearance of new symptoms, or with any questions or concerns. Compliance is encouraged with any medications and follow up testing that is ordered. It is a privilege to be allowed the opportunity to participate in? your urological care.? Again, if you have any questions or concerns If you have any questions or concerns please do not hesitate to contact me. The office is [phone]. This note is constructed using voice recognition software. While every effort has been made to ensure accuracy head scorer errors may have been included. Yours sincerely, TIEN Ballesteros Coding Level of Care Code Est Pt Level 3 (72408) Diagnoses Mixed stress and urge urinary incontinence N39.46 Lower urinary tract symptoms R39.9 CPT Codes Post Residual Void - PVR CPT Code: 49064-Qmvp Void Residual by ultrasound ([id number])
== END 2024-05-31 14:16 | disposition home or self-care (01) ==
PROVIDERS: PCP Internal Medicine; Visit Provider Nurse Practitioner Family
DX: N39.46 Mixed incontinence (principal); R39.9 Unspecified symptoms and signs involving the genitourinary system
CPT/HCPCS: 99213

== ENCOUNTER → 2024-05-31 13:39 | Outpatient (BNVA) | payer OTHER, SELFPAY | PROVIDERS: PCP Internal Medicine; Visit Provider Nurse Practitioner Family | DX: N39.46 Mixed incontinence (principal); R39.9 Unspecified symptoms and signs involving the genitourinary system | CPT/HCPCS: 51798; 99212 ==

== ENCOUNTER 2024-06-16 09:50 | Outpatient (REF) | payer OTHER, SELFPAY | END 2024-06-16 09:51 | disposition home or self-care (01) | LOC: HO.LAB 09:50 | PROVIDERS: PCP Internal Medicine; Visit Provider Advanced Practice Midwife | DX: R35.0 Frequency of micturition (principal); R82.90 Unspecified abnormal findings in urine; D21.9 Benign neoplasm of connective and other soft tissue, unspecified; Z71.2 Person consulting for explanation of examination or test findings | CPT/HCPCS: 81003; 87086; 99212 ==

== ENCOUNTER 2024-06-16 09:50 | Outpatient (AMB) | payer OTHER, SELFPAY ==
[2024-06-16 09:53] VITALS: BP 122/84
--- NOTE | 2024-06-16 09:53 | MHC.OFFVIS ---
Vital Signs 06/16/24 09:53 BP 122/84 Intake Visit Reasons: Ultra sound follow up Manager Medicare Marketing Required: Yes Manager Medicare Marketing Language: Getter Welder Name: Iraida Information Interpreted: non-clinical & clinical Merchandising Execution Associate: Merchandising Execution Associate Present Allergies Penicillins Allergy (Intermediate, Verified 06/16/24 09:54) DIZZINESS, RASH tramadol [TRAMADOL] Allergy (Intermediate, Verified 06/16/24 09:54) NAUSEA & VOMITING egg [Egg] Adverse Reaction (Intermediate, Verified 06/16/24 09:54) NAUSEA & VOMITING morphine Adverse Reaction (Intermediate, Verified 06/16/24 09:54) Chest Pain oxycodone Adverse Reaction (Verified 06/16/24 09:54) Dizziness FANY DRINK Allergy (Intermediate, Uncoded 05/31/24 14:11) NAUSEA & VOMITING Is last menstrual period known: Yes HPI Comments Details: Patient is here today for a follow up on her pelvic ultrasound due to history of uterine fibroid. She reports having some urinary frequency and odor today. Admits to not hydrating well, only takes sips of her water w/medications, has small amount of juice and 2 cups of coffee daily. [facility] Medical History COVID-19 Impaired glucose regulation Dysuria Pelvic pain Burning with urination Fibroids Hiatal hernia Right shoulder pain Exposure to COVID-19 virus Mild depression TIA (transient ischemic attack) Asthma Back pain Abdominal pain Vaginal pruritus Vitamin D deficiency Left knee pain Left ankle pain Depression with anxiety Polyarthralgia Pure hypercholesterolemia Essential hypertension Surgical History History of tooth extraction History of colonoscopy History of cyst of breast History of hemicolectomy History of cholecystectomy History of appendectomy History of exploratory laparotomy Family History Father No problems noted. Mother Hypertension Stroke Diabetes Brother Leptospirosis Brother No problems noted. Family/Other FH: mental illness Son Hypertension Social History Household Members: Spouse Housing: Apartment Alcohol intake: never Patient Tobacco Use Status: Never used Tobacco e-Cigarette/Vaping Use: Never Used Second Hand Smoke Exposure: No service: No Current occupational status: disabled Sexual orientation: Straight/Heterosexual Gender identity: Female Cognitive needs: Yes Hearing needs: No Vision needs: Yes Female Reproductive History Menstrual Age of Menarche: 9 Review of Systems Const All systems reviewed & are unremarkable except as noted in HPI and below Endo Reports no additional complaints Physical Exam Vital Signs: Last Vital Signs BP 122/84 06/16/24 09:53 Const General: cooperative, healthy appearing and no acute distress Psych Appearance: well kempt Attitude: cooperative Thought process: Normal thought process present Results AMB Urinalysis, Automated UA Leukoctes 0 Merlin/uL Last Edit by Domitila Ordaz Abby on 06/16/24 10:29 UA Nitrite Negative Last Edit by Domitila Ordaz Abby on 06/16/24 10:29 UA Urobilinogen 0 mg/dL Last Edit by Domitila Ordaz Abby on 06/16/24 10:29 UA Protein 0 mg/dL Last Edit by Domitila Ordaz Abby on 06/16/24 10:29 UA pH 6.0 Last Edit by Domitila Ordaz Abby on 06/16/24 10:29 UA Blood 1 [place]/uL Last Edit by Domitila Ordaz [facility] on 06/16/24 10:29 UA Specific Alviso 1.015 Last Edit by Domitila Ordaz Abby on 06/16/24 10:29 UA Ketone Negative Last Edit by Domitila Ordaz Abby on 06/16/24 10:29 UA Bilirubin 0 mg/dL Last Edit by Domitila Ordaz Abby on 06/16/24 10:29 UA Glucose 0 mg/dL Last Edit by Domitila Ordaz [facility] on 06/16/24 10:29 Results Reviewed Results Reviewed: [address] [address] Ultrasound Report Signed Patient: Ximena Lund MR#: [id number] : 1955 Acct:[id number] Age/Sex: 68 / F ADM Date: 05/17/24 Loc: HO.US Attending Dr: Scarlett Guzman CNM Ordering Physician: Scarlett Guzman CNM Date of Service: 05/17/24 Procedure(s): US pelvic and transvaginal Accession Number(s): [id number] cc: Scarlett Guzman CNM; Aure Barrett MD~ EXAMINATION: US PELVIS CLINICAL INFORMATION: Fibroid stability, postmenopausal. COMPARISON: 06/16/2023. TECHNIQUE: Ultrasound of the pelvis is performed using both transabdominal and transvaginal transducers along with Doppler. Transvaginal imaging is performed due to inadequate visualization transabdominally. FINDINGS: The uterus measures 6.8 x 4.3 x 4.1 cm, volume 62.8 mL. A 2.7 x 2.3 x 2.8 cm fibroid, previously 3.6 x 3.5 x 2.4 cm. A 1.2 x 0.9 x 1.0 cm fibroid was not measured on the prior study. Endometrium not visualized due to fibroids and uterine heterogeneity. No significant free fluid. Nabothian cysts. Right ovary measures 1.8 x 1.1 x 1.1 cm, volume 1.1 mL. Left ovary measures 1.4 x 1.0 x 1.0 cm, volume 0.7 mL. Bilateral ovaries are grossly unremarkable. US/US pelvic and transvaginal IMPRESSION: Fibroid uterus, likely submucosal fibroid, although visualization of endometrium poor due to uterine fibroids and heterogeneity. Dictated By: Seble Garcia MD Signed By: <Electronically signed by Seble Garcia MD in OV> 05/31/24 0654 DD/ 1539 TD/TT: Range Conservationist: Assessment & Plan Assessment & Plan (1) Fibroids: Code(s): D21.9 - Benign neoplasm of connective and other soft tissue, unspecified Category: Medical (2) Encounter to discuss test results: Code(s): Z71.2 - Person consulting for explanation of examination or test findings (3) Urinary frequency: Code(s): R35.0 - Frequency of micturition (4) Abnormal urine odor: Code(s): R82.90 - Unspecified abnormal findings in urine Plan Discussed: Ultrasound including a stable and somewhat smaller fibroid, in secondary fibroid was present with prior studies but not measured. Counseled re: Leiomyoma: common pelvic neoplasm. Differential diagnosis-may include but not limited to- leiomyosarcoma which is a rare uterine sarcoma 3-7/100,000, difficult to distinguish from fibroids on ultrasound from uterine sarcoma's. Unlikely any single test will have a highly positive predictive value. Hysterectomy is not recommended for sole purpose of excluding malignant neoplasm. Consult for surgical exploration, medical treatment, other treatments, verses expectant management, pros and cons, risks and benefits. Expectant management follow up in 6 months, then yearly for stability. Follow up results appointment. Report any PMB. Pelvic pressure, bloating, or pain. Referral to MD if indicated for level of care if indicated. Urinalysis today, Advised to hydrate well per her weight approximately 95 oz of water daily, and limit caffeine to 1 cup a day if possible. Follow up with Urology regarding bladder scan and plan of care due for urinary symptoms. Urine dip today was negative. All of her questions and concerns were addressed to the best of my ability and shared decision making. She is agreeable to the plan of care. This note is constructed using voice recognition software. While every effort has been made to ensure accuracy, logging crew supervisor errors may have been included. Orders: Orders AMB Urinalysis Automated Today R35.0 - Frequency of micturition, R82.90 - Unspecified abnormal findings in urine US pelvic and transvaginal Today D21.9 - Benign neoplasm of connective and other soft tissue, unspecified Urine Culture Today R35.0 - Frequency of micturition, R82.90 - Unspecified abnormal findings in urine Coding Level of Care Code Est Pt Level 3 (49048) Diagnoses Fibroids D21.9 Encounter to discuss test results Z71.2 Urinary frequency R35.0 Abnormal urine odor R82.90
== END 2024-06-16 10:19 | disposition home or self-care (01) ==
LOC: HO.HWSW 09:50
PROVIDERS: PCP Internal Medicine; Visit Provider Advanced Practice Midwife
DX: D21.9 Benign neoplasm of connective and other soft tissue, unspecified (principal); Z71.2 Person consulting for explanation of examination or test findings; R35.0 Frequency of micturition; R82.90 Unspecified abnormal findings in urine
CPT/HCPCS: 99213

== ENCOUNTER 2024-06-28 09:07 | Outpatient (REF) | payer OTHER, SELFPAY ==
--- NOTE | ~2024-06-28 | XR_ITS ---
EXAMINATION: XR CHEST CLINICAL INFORMATION: Dyspnea unspecified. COMPARISON: 06/02/2023 CT chest, 01/31/2023 and 12/04/2022 chest radiographs. TECHNIQUE: 2 views of the chest were obtained. FINDINGS: There is no gross pneumothorax. Lung volumes are low. Cardiac silhouette is borderline enlarged. Dextroscoliosis of the thoracic spine with multilevel degenerative changes. No significant pleural effusion. No new focal consolidation. XR/XR chest 2V IMPRESSION: 1. No new focal consolidation. 2. Cardiac silhouette is borderline enlarged. Electronically signed by: Sebel Garcia MD 07/13/2024 12:11 PM EDT
--- NOTE | ~2024-06-28 | MM_ITS ---
EXAMINATION: MM SCREENING DIGITAL BREAST TOMOSYNTHESIS, BILATERAL CLINICAL INFORMATION: Screening. Asymptomatic. COMPARISON: Mammography: Comparison is made with available priors TECHNIQUE: Digital breast mammography with tomosynthesis is performed in both the craniocaudal and mediolateral oblique views along with computer-aided detection (CAD). FINDINGS: There are scattered areas of fibroglandular density (ACR BI-RADS breast composition Category b). There are no significant masses, abnormal calcifications, or other abnormalities. MM/MM tomosynthesis screening BI IMPRESSION: No mammographic evidence of malignancy. ASSESSMENT: BI-RADS BI-RADS 1 - Negative RECOMMENDATION: Routine annual mammography screening. 1 year F/U This examination should not preclude the clinical evaluation of a suspicious palpable abnormality. This patient's information was entered into a reminder system with a target due date for their next mammogram. Electronically signed by: Rosemarie Thornton DO 07/12/2024 09:21 AM EDT
== END 2024-06-28 09:08 | disposition home or self-care (01) ==
LOC: HO.MAMMO 09:07
PROVIDERS: PCP Internal Medicine; Visit Provider Internal Medicine
DX: Z12.31 Encounter for screening mammogram for malignant neoplasm of breast (principal); R06.00 Dyspnea, unspecified
CPT/HCPCS: 71046; 77063; 77067

== ENCOUNTER → 2024-06-28 09:30 | Outpatient (BNV) | payer OTHER, SELFPAY | PROVIDERS: PCP Internal Medicine; Visit Provider Internal Medicine | DX: Z12.31 Encounter for screening mammogram for malignant neoplasm of breast (principal) | CPT/HCPCS: 77063; 77067 ==

== ENCOUNTER 2024-06-28 09:40 | Outpatient (AMB) | payer OTHER, SELFPAY ==
--- NOTE | 2024-06-28 10:38 | MHC.PC.OV ---
Vital Signs 06/28/24 10:41 Height 5 ft 2 in Weight 181 lb BMI 33.1 BP 130/82 Blood Pressure Location Lt brachial Position Sitting Intake Visit Reasons: Annual Exam Intake Note: Patient here for an Annual Physical Exam Real Estate Acquisition Analyst Required: No Accompanied by: Self / Same As Patient Allergies Penicillins Allergy (Intermediate, Verified 06/28/24 10:48) DIZZINESS, RASH tramadol [TRAMADOL] Allergy (Intermediate, Verified 06/28/24 10:48) NAUSEA & VOMITING egg [Egg] Adverse Reaction (Intermediate, Verified 06/28/24 10:48) NAUSEA & VOMITING morphine Adverse Reaction (Intermediate, Verified 06/28/24 10:48) Chest Pain oxycodone Adverse Reaction (Verified 06/28/24 10:48) Dizziness FANY DRINK Allergy (Intermediate, Uncoded 06/28/24 10:48) NAUSEA & VOMITING Medication List - Last Reconciled 06/28/24 by Aure Horton MD acetaminophen ER (Tylenol Arthritis Pain) 650 mg PO Q8H PRN albuterol sulfate 2.5 mg (3 mL) inhalation Q4-6H PRN 30 days alcohol swabs pad topical amlodipine 5 mg PO DAILY aspirin 81 mg PO DAILY 90 days atenolol 50 mg PO DAILY 90 days atorvastatin 20 mg PO BEDTIME 90 days buspirone 10 mg PO BID 90 days calcium carbonate-vitamin D3 500 mg-10 mcg (400 unit) (Oyster Shell Calcium-Vitamin D3) 1 tab PO DAILY 90 days carbamide peroxide 6.5% (Ear Drops (carbamide peroxide)) 5 drps otic (ears) DAILY 4 days citalopram 20 mg PO docusate sodium 100 mg PO BEDTIME erythromycin 0.5 inches ophthalmic (eye) BID erythromycin 1 appl ophthalmic (eye) QID 5 days fluticasone propionate 50 mcg/actuation (Flonase Allergy Relief) 2 sprays intranasal DAILY gabapentin 100 mg PO BEDTIME 30 days ibuprofen 600 mg PO Q6H PRN losartan 25 mg PO DAILY 90 days metformin 500 mg PO BID 90 days methylcellulose (laxative) (Citrucel) 500 mg PO DAILY mirabegron ER (Myrbetriq) 25 mg PO DAILY 90 days nebulizers (AeroEclipse II Nebulizer) As directed omeprazole 20 mg PO BID ondansetron HCl 4 mg PO Q8-12H PRN pioglitazone 15 mg PO DAILY sennosides (Natural Senna Laxative) 17.2 mg (2 x 8.6 mg) PO BEDTIME walker As Directed Tobacco use date assessed: 03/02/24 Fall risk assessment: No Falls in past year Last assessed Fall Risk: 06/28/24 Dental Screening Dental Screen Date: 06/28/24 Did you have a dental visit in the last 12 months?: No Did you have a dental problem in the last 6 months where you did not have access to dental care?: No Was dental information given to patient?: Patient declined HPI HPI Comments History of Present Illness Details This is a 68-year-old female with diabetes mellitus type 2 and mild major depression that comes for her physical exam. A1c within goal. Diabetic eye exam is scheduled for this month. Depression stable. Mammogram done today and results are still pending. Colonoscopy done 2021. Pap smear done 2020. Complains of shortness of breaths that can happen at rest or on exertion. Will order x-ray. [facility] Medical History (Updated 06/28/24 @ 11:53 by Aure Horton MD) COVID-19 Impaired glucose regulation Dysuria Pelvic pain Burning with urination Fibroids Hiatal hernia Right shoulder pain Exposure to COVID-19 virus Mild depression TIA (transient ischemic attack) Asthma Back pain Abdominal pain Vaginal pruritus Vitamin D deficiency Left knee pain Left ankle pain Depression with anxiety Polyarthralgia Pure hypercholesterolemia Essential hypertension Surgical History History of tooth extraction History of colonoscopy History of cyst of breast History of hemicolectomy History of cholecystectomy History of appendectomy History of exploratory laparotomy Family History Father No problems noted. Mother Hypertension Stroke Diabetes Brother Leptospirosis Brother No problems noted. Family/Other FH: mental illness Son Hypertension Social History Household Members: Spouse Housing: Apartment Alcohol intake: never Patient Tobacco Use Status: Never used Tobacco e-Cigarette/Vaping Use: Never Used Second Hand Smoke Exposure: No service: No Current occupational status: disabled Sexual orientation: Straight/Heterosexual Gender identity: Female Cognitive needs: Yes Hearing needs: No Vision needs: Yes Female Reproductive History Menstrual Age of Menarche: 9 Questionnaire PHQ-9 Over the last 2 weeks, how often have you been bothered by any of the following problems? 1. Little interest or pleasure in doing things: not at all 2. Feeling down, depressed, or hopeless: not at all 3. Trouble falling or staying asleep, or sleeping too much: not at all 4. Feeling tired or having little energy: not at all 5. Poor appetite or overeating: not at all 6. Feeling bad about yourself - or that you are a failure or have let yourself or your family down: not at all 7. Trouble concentrating on things, such as reading the newspaper or watching television: not at all 8. Moving or speaking so slowly that other people could have noticed. Or the opposite - being so fidgety or restless that you have been moving around a lot more than usual: not at all 9. Thoughts that you would be better off or of hurting yourself in some way: not at all Total score: 0 Depression Screening Interpretation: Negative Depression Screening Done: Yes 75928 - PHQ-9 Billing: Yes Source: Developed by Drs. Dagoberto Mercer, Adry Valentin, Néstor Garcia and colleagues, with an educational zheng from [employer]. Thrive Questionnaire Date Thrive assessed: 06/28/24 I am a: Patient What is your living situation today?: I have a steady place to live Within the past 12 months, did the food you bought not last and you didn't have the money to get more?: Never true Within the past 12 months, did you worry whether your food would run out before you got money to buy more?: Never true Do you have trouble paying for medicines?: No Do you have trouble getting transportation to medical appointments?: No Do you have trouble paying your heating and electricity bill?: No Do you have trouble taking care of your child, family member or friend?: No Do you have trouble with day-to-day activities such as bathing, preparing meals, shopping, managing finances, etc.?: No Are you currently unemployed and looking for a job?: No Are you interested in more education?: No Please select the resources that you would like help with: None Currently or been in a relationship where the following occur: No concerns reported THRIVE Score: 0 AUDIT C Alcohol Use Questionnaire (AUDIT-C) 1. How often do you have a drink containing alcohol?: Never Total Score: 0 Score Reviewed/Action Taken: No JESSICA-7 AMB Questionnaire JESSICA-7 Date JESSICA - 7 assessed: 06/28/24 Feeling nervous, anxious, or on edge: 0 = Not at all Not being able to stop or control worryin = Not at all Worrying too much about different things: 0 = Not at all Trouble relaxin = Not at all Being so restless that it is hard to sit still: 0 = Not at all Becoming easily annoyed or irritable: 0 = Not at all Feeling afraid as if something awful might happen: 0 = Not at all Total JESSICA-7 score (0-4 normal; 5-9 mild; 10-14 moderate; 15-21 severe): 0 Source: Developed by Drs. Dagoberto Mercer, Adry Valentin, Néstor Garcia and colleagues, with an educational zheng from [employer]. JESSICA-7 Assessment Billing JESSICA-7 Assessment Tool: JESSICA-7 Assessment 39534 Review of Systems Const All systems reviewed & are unremarkable except as noted in HPI and below Card Denies chest pain at rest, Denies chest pain with activity, Denies edema, Denies irregular heart rhythm, Denies claudication, Reports dyspnea, Denies dyspnea on exertion, Denies orthopnea, Denies paroxysmal nocturnal dyspnea and Denies slow heart rate Resp Denies cough, Reports dyspnea and Denies dyspnea on exertion GI Denies abdominal pain, Denies change in bowel habits, Denies excessive flatus, Denies nausea and Denies vomiting Denies urinary incontinence, Denies urinary hesitancy and Denies urinary urgency Musc Denies atrophy, Denies deformity and Denies limited range of motion Skin/Breast Denies bleeding lesions, Denies changing lesions and Denies rash Physical exam (Primary Care) Vital Signs: Last Vital Signs BP 130/82 06/28/24 10:41 BMI result Body Mass Index 33.1 Tobacco/Smoking Status: Tobacco use Status Tobacco use date assessed 03/02/24 06/28/24 10:41 Patient Tobacco Use Status Never used Tobacco 06/28/24 10:41 e-Cigarette/Vaping Use Never Used 06/28/24 10:41 PHQ-9: PHQ-9 Score PHQ-9: Total score 0 06/28/24 10:49 Depression Screening Interpretation: Negative Thrive Assessment: Date of Thrive Assessment Date Thrive assessed 06/28/24 06/28/24 10:46 Currently or been in a relationship where the following occur: No concerns reported [facility] Head: Yes normal to inspection, Yes normocephalic and Yes atraumatic Ears: external ears normal Eyes General: appearance normal, both eyes and all related structures Eyelids: Yes eyelids normal Conjunctivae: conjunctivae normal Neck Neck: Yes normal visual inspection and Yes supple Resp Effort & Inspection: normal respiratory effort Auscultation: clear to auscultation bilaterally Cardio Jugular venous distension: no JVD Rate: regular rate Rhythm: regular rhythm Heart sounds: S1 normal heart sound present and S2 normal heart sound present GI Inspection: Yes normal to inspection Palpation (GI): Soft to palpation and nontender Auscultation: normal bowel sounds Skin General skin exam: no rashes or lesions noted Neuro General: no focal motor deficits Extrem General: Yes full ROM Psych Appearance: grossly normal Results AMB Hemoglobin A1c AMB Hemoglobin A1c 6.2 % Last Edit by DAVID Walton on 06/28/24 10:49 Results Reviewed Results Reviewed: Laboratory Last Values Hgb A1c (Clinic) 6.2 % (4.0-6.0) H 06/28/24 09:45 Assessment and Plan Assessment & Plan (1) Physical exam: Code(s): Z00.00 - Encounter for general adult medical examination without abnormal findings Plan: Repeat in a year. (2) Diabetes mellitus: Code(s): E11.9 - Type 2 diabetes mellitus without complications Qualifiers: Diabetes mellitus type: type 2 Diabetes mellitus technician terminal and repeater insulin use: without technician terminal and repeater use Diabetes mellitus complication status: without complication Qualified Code(s): E11.9 - Type 2 diabetes mellitus without complications Plan: Continue metformin. A1c goal is equal or less than 7%. Do diabetic eye exam yearly. (3) Mild depression: Code(s): F32.0 - Major depressive disorder, single episode, mild Plan: Continue citalopram. (4) Dyspnea: Code(s): R06.00 - Dyspnea, unspecified Qualifiers: Dyspnea type: shortness of breath Qualified Code(s): R06.02 - Shortness of breath Plan: Chest x-ray ordered. Orders: Orders AMB Hemoglobin A1c Today E11.9 - Type 2 diabetes mellitus without complications Comprehensive [place]. Panel Fast 4 Months E11.9 - Type 2 diabetes mellitus without complications XR chest 2V Today R06.00 - Dyspnea, unspecified Lipid Panel 4 Months E78.5 - Hyperlipidemia, unspecified Microalbumin, Random (w Creat) 4 Months E11.9 - Type 2 diabetes mellitus without complications Vitamin D 25-OH Total 4 Months E55.9 - Vitamin D deficiency, unspecified Coding Level of Care Code Est Pt Level 3 (27107) Est Pt Prev Care >65y(25076) Diagnoses Physical exam Z00.00 Type 2 diabetes mellitus without complication, without long-term current use of insulin E11.9 Diabetes mellitus type: type 2 Diabetes mellitus half-way insulin use: without half-way use Diabetes mellitus complication status: without complication Mild depression F32.0 Shortness of breath R06.02 Dyspnea type: shortness of breath Additional Codes JESSICA-7 Assessment Billing - JESSICA-7 Assessment Tool: JESSICA-7 Assessment [id number] ([id number]) Time Spent (min) 33
[2024-06-28 10:41] VITALS: BP 130/82; BMI 33.1
== END 2024-06-28 11:01 | disposition home or self-care (01) ==
PROVIDERS: PCP Internal Medicine; Visit Provider Internal Medicine
DX: Z00.00 Encounter for general adult medical examination without abnormal findings (principal); E11.9 Type 2 diabetes mellitus without complications; F32.0 Major depressive disorder, single episode, mild; R06.02 Shortness of breath
CPT/HCPCS: 83036; 99213; 99397

== ENCOUNTER 2024-08-24 14:31 | Outpatient (AMB) | payer OTHER, SELFPAY ==
--- NOTE | 2024-08-24 14:34 | MHC.OFFVIS ---
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 Ediphone Operator Required: Yes Ediphone Operator Language: Irish Supervisor Melt House: Supervisor Melt House Present (Rose ) Allergies Penicillins Allergy (Intermediate, Verified 08/24/24 14:38) DIZZINESS, RASH tramadol [TRAMADOL] Allergy (Intermediate, Verified 08/24/24 14:38) NAUSEA & VOMITING egg [Egg] Adverse Reaction (Intermediate, Verified 08/24/24 14:38) NAUSEA & VOMITING morphine Adverse Reaction (Intermediate, Verified 08/24/24 14:38) Chest Pain oxycodone Adverse Reaction (Verified 08/24/24 14:38) Dizziness FANY DRINK Allergy (Intermediate, Uncoded 06/28/24 10:48) NAUSEA & VOMITING HPI Comments Details: She is a 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 She is doing well with concerns: She reports a small amount of blood was on her panty liner yesterday. She does not remember scratching herself although she does have some vaginal irritation at times along w/burning with urination, she does not recall seeing blood in her urine. History of fibroids Attempting to eat a healthy diet with calcium and vitamin D and stays active with little exercise. Currently not sexually active. Last pap smear; 2020. Last mammogram; 2023. Colonoscopy is UTD. Denies any family history of breast, ovarian or colon cancer. REPLACED BY [facility] Medical History PMB (postmenopausal bleeding) COVID-19 Impaired glucose regulation Dysuria Pelvic pain Burning with urination Fibroids Hiatal hernia Right shoulder pain Exposure to COVID-19 virus Mild depression TIA (transient ischemic attack) Asthma Back pain Abdominal pain Vaginal pruritus Vitamin D deficiency Left knee pain Left ankle pain Depression with anxiety Polyarthralgia Pure hypercholesterolemia Essential hypertension Surgical History History of tooth extraction History of colonoscopy History of cyst of breast History of hemicolectomy History of cholecystectomy History of appendectomy History of exploratory laparotomy Family History Father No problems noted. Mother Hypertension Stroke Diabetes Brother Leptospirosis Brother No problems noted. Family/Other FH: mental illness Son Hypertension Social History Household Members: Spouse Housing: Apartment Alcohol intake: never Patient Tobacco Use Status: Never used Tobacco e-Cigarette/Vaping Use: Never Used Second Hand Smoke Exposure: No service: No Current occupational status: disabled Sexual orientation: Straight/Heterosexual Gender identity: Female Cognitive needs: Yes Hearing needs: No Vision needs: Yes Female Reproductive History Menstrual Age of Menarche: 9 Total pregnancies: 2 Full term: 2 Date of last pap smear: 04/30/21 (negative pap smear, negative HPV) Date of Mammogram: 06/28/24 (BI-RAD 1) Date of last Bone Density Screenin10/21/22 Review of Systems Const All systems reviewed & are unremarkable except as noted in HPI and below Reports as per HPI Eyes Reports no additional complaints ENT Reports no additional complaints Card Reports no additional complaints Resp Reports no additional complaints GI Reports as per HPI and Reports no additional complaints Reports as per HPI Musc Reports no additional complaints Skin/Breast Reports as per HPI Neuro Reports no additional complaints Psych Reports no additional complaints Endo Reports no additional complaints Bin/Lymph Reports no additional complaints Aller/Immun Reports no additional complaints Physical Exam Vital Signs: Last Vital Signs BP 128/80 08/24/24 14:42 BMI result Body Mass Index 33.7 Const General: cooperative, healthy appearing, no acute distress, well developed and alert Orientation/consciousness: patient oriented x3 HEENT Head: Yes normal to inspection Eyes General: appearance normal, both eyes and all related structures Neck Neck: Yes normal visual inspection Thyroid: Thyroid normal Chest Chest palpation & inspection: normal inspection of the chest and other (no puckering, dimpling, peau de orange, retraction, discharge, masses) Breast/axilla inspection: normal inspection of the breasts Breast/axilla palpation: normal palpation of the breasts Resp Effort & Inspection: normal respiratory effort GI Inspection: Yes normal to inspection Palpation (GI): Soft to palpation Rectal Exam - Female: deferred General: Yes bladder normal to palpation External Female Exam: normal external appearance and normal appearance of the urethra Speculum Exam - Vagina: normal appearance of the vagina, normal palpation, normal vaginal discharge and vagina atrophic Speculum Exam - Cervix: normal appearance of the cervix and normal palpation Bimanual exam- vagina & uterus: normal bimanual exam, normal palpation, uterine size normal, bladder normal to palpation, normal palpation and non-tender Bimanual Exam- Adnexa, other: no masses Skin General skin exam: no rashes or lesions noted Rashes: no rashes Neuro General: patient oriented x3 Cognition (Neuro): normal cognition Extrem General: Yes normal to inspection Psych Attitude: cooperative Thought process: Normal thought process present Results AMB Urinalysis, Automated UA Leukoctes 1 [place]/uL Last Edit by DAVID Martin on 08/24/24 16:00 UA Nitrite Negative Last Edit by DAVID Martin on 08/24/24 16:00 UA Urobilinogen 0 mg/dL Last Edit by DAVID Martin on 08/24/24 16:00 UA Protein 0 mg/dL Last Edit by DAVID Martin on 08/24/24 16:00 UA pH 6.0 Last Edit by DAVID Martin on 08/24/24 16:00 UA Blood 1 [place]/uL Last Edit by DAVID Martin on 08/24/24 16:00 UA Specific [place] 1.020 Last Edit by DAVID Martin on 08/24/24 16:00 UA Ketone Negative Last Edit by DAVID Martin on 08/24/24 16:00 UA Bilirubin 0 mg/dL Last Edit by DAVID Martin on 08/24/24 16:00 UA Glucose 0 mg/dL Last Edit by DAVID Matrin on 08/24/24 16:00 Assessment & Plan Assessment & Plan (1) Encounter for annual routine gynecological examination: Code(s): Z01.419 - Encounter for gynecological examination (general) (routine) without abnormal findings Category: Medical (2) Uterine fibroid: Code(s): D25.9 - Leiomyoma of uterus, unspecified Category: Medical Qualifiers: Uterine leiomyoma location: unspecified location Qualified Code(s): D25.9 - Leiomyoma of uterus, unspecified (3) Vaginal pruritus: Code(s): N89.8 - Other specified noninflammatory disorders of vagina Category: Medical Plan Discussed: Current recommendations for pap smears per ASCCP guidelines. Breast awareness, periodic self breast exams and yearly mammogram. Maintain a healthy lifestyle, well balanced diet including Calcium 1,200 mg and Vitamin D 800 IU daily, and routine exercise. Workup for postmenopausal bleeding-plan pelvic ultrasound, and endometrial biopsy preprocedure planning reviewed. Clean-catch urine today. BV swab sent. Contact the office with any postmenopausal bleeding. Patient verbalizes understanding and agrees to the plan of care. She was given opportunity to ask questions and all questions were answered to the best of my ability. Return to the office 1-2 years, or as needed. This note is constructed using voice recognition software. While every effort has been made to ensure accuracy, roll contour grinder errors may have been included. RTO in [address] railway line installer exam. Orders: Orders Bacterial Vaginosis Panel Today N89.8 - Other specified noninflammatory disorders of vagina US pelvic and transvaginal Today D25.9 - Leiomyoma of uterus, unspecified, N95.0 - Postmenopausal bleeding Coding Level of Care Code Est Pt Prev Care >65y(05130) Diagnoses Encounter for annual routine gynecological examination Z01.419 Uterine leiomyoma, unspecified location D25.9 Uterine leiomyoma location: unspecified location Vaginal pruritus N89.8
[2024-08-24 14:42] VITALS: BP 128/80; BMI 33.7
== END 2024-08-24 15:57 | disposition home or self-care (01) ==
LOC: HO.HWS 14:32
PROVIDERS: PCP Internal Medicine; Visit Provider Advanced Practice Midwife
DX: Z01.419 Encounter for gynecological examination (general) (routine) without abnormal findings (principal); D25.9 Leiomyoma of uterus, unspecified; N89.8 Other specified noninflammatory disorders of vagina; R30.0 Dysuria
CPT/HCPCS: 99397

== ENCOUNTER 2024-08-24 14:31 | Outpatient (REF) | payer OTHER, SELFPAY ==
[2024-08-24 18:27] LABS: Bacterial Vaginosis PCR NEGATIVE (Negative); Candida Group PCR NOT DETECTED (Not Detect); Candida glab krusei PCR NOT DETECTED (Not Detect); Trichomonas vaginalis PCR NOT DETECTED (Not Detect)
== END 2024-08-24 14:32 | disposition home or self-care (01) ==
LOC: HO.LAB 14:31
PROVIDERS: PCP Internal Medicine; Visit Provider Advanced Practice Midwife
DX: Z01.419 Encounter for gynecological examination (general) (routine) without abnormal findings (principal); R30.0 Dysuria; N89.8 Other specified noninflammatory disorders of vagina
CPT/HCPCS: 0352U; 81003; 87086; 99397

== ENCOUNTER 2024-08-24 15:59 | Outpatient (REF) | payer OTHER, SELFPAY | END 2024-08-24 16:00 | disposition home or self-care (01) | LOC: HO.LNP 15:59 | PROVIDERS: Visit Provider Advanced Practice Midwife | DX: Z13.89 Encounter for screening for other disorder (principal) ==

== ENCOUNTER 2024-09-06 13:20 | Emergency (ER) | payer OTHER, SELFPAY ==
--- NOTE | ~2024-09-06 | CT_ITS ---
EXAMINATION: CTA head and neck with and without contrast CLINICAL INFORMATION: left sided neck pain, headache, vision changes COMPARISON: None available. TECHNIQUE: Test bolus sequences followed by intravenous administration of 70 mL of Omnipaque 350 contrast. Helical imaging was performed in the axial plane from the skull vertex to the thoracic inlet. Delayed postcontrast imaging of the head was also performed. The data was processed at the ct scan special procedures technologist workstation for generation of MIP sequences. Angled MIPs and volume rendered reformatted images were also generated at an offline 3D workstation. Stenoses are assessed in accordance with NASCET criteria unless otherwise indicated. This CT examination was performed using dose optimization techniques as appropriate, variously including the following: *Automated exposure control *Adjustment of mA and/or kV according to patient size (this includes techniques or standardized protocols for targeted exams where dose is matched to indication/reason for exam; i.e. extremities or head) *Use of iterative reconstruction technique DLP: 2138 mGy-cm FINDINGS: BRAIN: No acute intracranial hemorrhage or infarct. The cuellar-white matter differentiation is preserved. No midline shift or hydrocephalus. No acute extra-axial fluid collections. The osseous structures are unremarkable. The paranasal sinuses and mastoid air cells are clear. CTA NECK: Three-vessel aortic arch. The innominate and bilateral subclavian arteries are patent. The origins and cervical segments of the common carotid arteries as well as the common carotid artery bifurcations are patent bilaterally. The cervical segments of the internal carotid arteries are also patent bilaterally. Incidentally noted beaded appearance of the distal cervical ICAs bilaterally. The origins and cervical segments of the vertebral arteries are patent bilaterally. No hemodynamically significant stenosis, dissection, or aneurysm. The visualized branches of the external carotid arteries are unremarkable. CTA HEAD: Anterior circulation: The petrous, cavernous, and supraclinoid segments of the internal carotid arteries are patent bilaterally. The major branches of the anterior and middle cerebral arteries as well as anterior communicating artery complex are patent. No large vessel occlusion, saccular aneurysm, or dissection. Posterior circulation: The intracranial vertebral arteries are patent bilaterally. The basilar artery is normal in course and caliber. The posterior cerebral and superior cerebellar arteries arise normally from the basilar summit. No aneurysm. On delayed imaging, the venous structures demonstrate normal contrast opacification. No filling defect. No abnormal intracranial enhancement. Soft tissues: No suspicious neck mass or cervical adenopathy. Lungs: Clear. Bones: No acute osseous abnormality. No lytic or blastic osseous lesions. Degenerative changes of the visualized spine. CT/CT angio head neck IMPRESSION: 1. CT head demonstrates no acute intracranial hemorrhage or edematous infarct. 2. CTA head demonstrates no large vessel occlusion, saccular aneurysm, or dissection. 3. CTA neck demonstrates no hemodynamically significant stenosis, dissection, or aneurysm. Incidentally noted beaded appearance of the distal cervical ICAs bilaterally which may reflect fibromuscular dysplasia. Electronically signed by: Michael Hurtado MD 09/06/2024 05:05 PM GÉNESIS BARRIOS
[2024-09-06 13:50] VITALS: BP 168/78; PULSE 88; RESP 16; TEMP 36.6; O2SAT 100; BMI 33.4
--- NOTE | 2024-09-06 13:50 | ED_ITS ---
HPI - Neck Pain/Injury General Chief Complaint: Neck Pain/Injury Stated Complaint: Neck pain, headache Time Seen by Provider: 09/06/24 17:24 Source: patient, family, RN notes reviewed and old records reviewed Mode of arrival: ambulatory History of Present Illness ED Provider: Baetriz Buck PA-C HPI Narrative: 68-year-old female Canadian-speaking with a past medical history TIA, asthma, depression, anxiety, polyarthralgia, HTN, HLD, presenting to the ED complaining of left-sided neck pain radiating to head since last night with associated visual changes, described as seeing blurry w/black lines/dots to left eye yesterday. Denies vision changes at present. Does report seeing mildly blurry this morning which has since resolved. Denies taking anticoagulation, is on ASA. Pain worse with neck movement. Denies recent neck trauma, manipulation, nausea/vomiting, numbness, tingling, weakness, back pain Related Data Home Medications ?Medication ?Instructions ?Recorded ?Confirmed alcohol swabs pad topical 09/11/20 06/28/24 citalopram 20 mg tablet 20 mg PO 11/09/23 06/28/24 Previous Rx's ?Medication ?Instructions ?Recorded acetaminophen 650 mg 650 mg PO Q8H PRN pain #90 tabs 10/23/20 tablet,extended release (Tylenol Arthritis Pain) nebulizers (AeroEclipse II #1 ea 04/01/21 Nebulizer) gabapentin 100 mg capsule 100 mg PO BEDTIME 30 days #30 caps 09/06/21 walker #1 ea 11/08/21 fluticasone propionate 50 2 spray intranasal DAILY #16 grams 12/04/22 mcg/actuation nasal spray,suspension (Flonase Allergy Relief) albuterol sulfate 2.5 mg/3 mL 2.5 mg (3 mL) inhalation Q4-6H PRN 01/29/23 (0.083 %) solution for nebulization shortness of breath or wheezing 30 days #75 mL ibuprofen 600 mg tablet 600 mg PO Q6H PRN fever or pain 01/31/23 #30 tabs metformin 500 mg tablet 500 mg PO BID 90 days #180 tabs 06/25/23 ondansetron HCl 4 mg tablet 4 mg PO Q8-12H PRN nausea and 10/16/23 vomiting #14 tabs methylcellulose (laxative) 500 mg 500 mg PO DAILY #90 tabs 11/09/23 tablet (Citrucel) aspirin 81 mg tablet,delayed 81 mg PO DAILY 90 days #90 tabs 12/06/23 release atenolol 50 mg tablet 50 mg PO DAILY 90 days #90 tabs 12/06/23 calcium 500 mg (as 1 tab PO DAILY 90 days #90 tabs 02/04/24 carbonate)-vitamin D3 10 mcg (400 unit) tablet (Oyster Shell Calcium-Vitamin D3) carbamide peroxide 6.5 % ear drops 5 drp otic (ears) DAILY 4 days #15 03/02/24 (Ear Drops (carbamide peroxide)) mL docusate sodium 100 mg capsule 100 mg PO BEDTIME #90 caps 03/31/24 omeprazole 20 mg capsule,delayed 20 mg PO BID #180 caps 03/31/24 release sennosides 8.6 mg tablet (Natural 17.2 mg (2 x 8.6 mg) PO BEDTIME 03/31/24 Senna Laxative) constipation #90 tabs buspirone 10 mg tablet 10 mg PO BID 90 days #180 tabs 04/05/24 losartan 25 mg tablet 25 mg PO DAILY 90 days #90 tabs 04/05/24 erythromycin 5 mg/gram (0.5 %) eye 1 appl ophthalmic (eye) QID 5 days 05/13/24 ointment #3.5 grams erythromycin 5 mg/gram (0.5 %) eye 0.5 inch ophthalmic (eye) BID #3.5 05/17/24 ointment grams mirabegron 25 mg tablet,extended 25 mg PO DAILY 90 days #90 tabs 05/31/24 release 24 hr (Myrbetriq) amlodipine 5 mg tablet 5 mg PO DAILY #30 tabs 06/01/24 atorvastatin 20 mg tablet 20 mg PO BEDTIME 90 days #90 tabs 06/01/24 pioglitazone 15 mg tablet 15 mg PO DAILY 90 days #90 tabs 06/30/24 acetaminophen 500 mg tablet 500 mg PO Q6H PRN fever or pain 09/06/24 (Tylenol Extra Strength) #14 tabs clopidogrel 75 mg tablet (Plavix) 75 mg PO DAILY 30 days #30 tabs 09/06/24 cyclobenzaprine 5 mg tablet 5 mg PO Q8H PRN pain (scale score 09/06/24 7-10) 5 days #14 tabs lidocaine 5 % topical patch 1 patch topical DAILY PRN pain #30 09/06/24 (Lidoderm) ea prednisone 20 mg tablet 60 mg (3 x 20 mg) PO DAILY 2 weeks 09/06/24 #42 tabs Allergies Allergy/AdvReac Type Severity Reaction Status Date / Time Penicillins Allergy Intermediate DIZZINESS, Verified 09/06/24 13:52 RASH tramadol [TRAMADOL] Allergy Intermediate NAUSEA & Verified 08/24/24 14:38 VOMITING egg [Egg] AdvReac Intermediate NAUSEA & Verified 08/24/24 14:38 VOMITING morphine AdvReac Intermediate Chest Pain Verified 08/24/24 14:38 oxycodone AdvReac Dizziness Verified 08/24/24 14:38 FANY DRINK Allergy Intermediate NAUSEA & Uncoded 06/28/24 10:48 VOMITING Review of Systems 2 Review of Systems: Yes all other systems are reviewed and are negative Constitutional: Constitutional: Reports as per HPI Neurologic: Denies Abnormal speech present [facility] Past Medical History Attestation statement: The following information was validated with the patient. Source: old records reviewed Medical History PMB (postmenopausal bleeding) COVID-19 Impaired glucose regulation Dysuria Pelvic pain Burning with urination Fibroids Hiatal hernia Right shoulder pain Exposure to COVID-19 virus Mild depression TIA (transient ischemic attack) Asthma Back pain Abdominal pain Vaginal pruritus Vitamin D deficiency Left knee pain Left ankle pain Depression with anxiety Polyarthralgia Pure hypercholesterolemia Essential hypertension Surgical History History of tooth extraction History of colonoscopy History of cyst of breast History of hemicolectomy History of cholecystectomy History of appendectomy History of exploratory laparotomy Family History Family History Father No problems noted. Mother Hypertension Stroke Diabetes Brother Leptospirosis Brother No problems noted. Family/Other FH: mental illness Son Hypertension Social History Social History Household Members: Spouse Housing: Apartment Alcohol intake: never Patient Tobacco Use Status: Never used Tobacco e-Cigarette/Vaping Use: Never Used Second Hand Smoke Exposure: No Advance Directives: No Advance Directives Information Provided: Yes service: No Current occupational status: disabled Sexual orientation: Straight/Heterosexual Gender identity: Female Cognitive needs: Yes Hearing needs: No Vision needs: Yes Physical Exam 2 Vital Signs: Vital Signs: Last Vital Signs Temp 97.8 F 09/06/24 19:16 Pulse 67 09/06/24 19:16 Resp 16 09/06/24 19:16 BP 144/74 H 09/06/24 19:16 Pulse Ox 99 09/06/24 19:16 O2 Del Method Room Air 09/06/24 19:16 BMI result Body Mass Index 33.4 Const: General: cooperative, healthy appearing and no acute distress O rientation/consciousness: patient oriented x3 Limitations: no limitations HEENT: Head: Yes normal to inspection and Yes atraumatic Ears: hearing grossly normal bilaterally General nose exam: Normal external nose present Face and sinus: Yes normal facial exam Eyes: General: appearance normal, both eyes and all related structures E yelids: Yes eyelids normal Conjunctivae: conjunctivae normal Pupils: E qual, round and reactive pupils present EOM: EOMs intact bilaterally, no movement deficit and No Nystagmus present Direct Ophthalmoscopy: no photophobia Neck: Other: No midline cervical spinous tenderness. Left-sided paraspinal reproducible tenderness noted. Pain elicited with movement of neck Neck: Yes normal visual inspection, Yes no meningeal signs and No anterior neck swelling Resp: Effort & Inspection: normal respiratory effort and no respiratory distress Auscultation: clear to auscultation bilaterally Cardio: Rate: regular rate Heart sounds: S1 normal heart sound present and S2 normal heart sound present GI: Inspection: Yes normal to inspection Palpation (GI): Soft to palpation, nontender, no guarding and not rigid : General: Yes no CVA tenderness Back/Spine/Pelvis: Other: No midline cervical/thoracic/lumbar spinous tenderness/step-off or deformity Back: no CVA tenderness Skin: Rashes: no rashes Wounds: no wounds Neuro: General: patient oriented x3, gait normal, tone normal, moves all extremities, no meningeal signs, no focal motor deficits and CN's II-XI intact bilaterally Cranial nerves: Yes CN's II-XII intact bilaterally, Yes Equal, round and reactive pupils present, Yes Bilaterally intact EOM present and No Nystagmus present Cognition (Neuro): normal cognition Speech: No Abnormal speech present Gait exam (Neuro): Normal gait present Motor exam (neuro): 5/5 motor strength present throughout Extrem: General: Yes normal to inspection Course Course Course Narrative: This is a Rapid Medical Examination (RME) performed by Owen Bourne PA-C in triage. Full HPI, ROS, assessment and treatment plan per primary provider in the Main ED. 68 yo [place] speaking female presents to the ER for evaluation of left sided neck pain, posterior headache and vision changes that started this morning when she woke up. she reports seeing black spots. limited ROM of her head due to the pain. neurologically grossly intact in triage. Plan: CTA head/neck, labs -labs reassuring CT angio head neck IMPRESSION: 1. CT head demonstrates no acute intracranial hemorrhage or edematous infarct. 2. CTA head demonstrates no large vessel occlusion, saccular aneurysm, or dissection. 3. CTA neck demonstrates no hemodynamically significant stenosis, dissection, or aneurysm. Incidentally noted beaded appearance of the distal cervical ICAs bilaterally which may reflect fibromuscular dysplasia. -case discussed with ED attending, Dr. SCOTT, in agreement w/plan > case discussed with vascular surgery, Dr. Mehta, states unlikely fibromuscular dysplasia is causing symptoms. Recommend patient be on aspirin and Plavix outpatient and can follow-up in his office. Patient already on ASA, will add Plavix to regimen. Also discussed elevated ESR/CRP and empiric treatment for possible giant cell arteritis with prednisone and needed outpatient follow-up -IOP's WNL > discussed at length with patient results/workup and treatment plan with needed close follow-up with improvement advisor Results discussed with patient including worrisome signs and symptoms and strict return precautions, and when to return to the emergency department. They verbalized understanding and feel safe for discharge at this time. Medications Administered Discontinued Medications Generic Name Dose Route Start Last Admin Trade Name Freq PRN Reason Stop Dose Admin Acetaminophen 975 mg 09/06/24 16:38 09/06/24 16:43 Acetaminophen 325 Mg Tablet PO 09/06/24 16:39 975 mg ONCE ONE Administration Ibuprofen 600 mg 09/06/24 16:38 09/06/24 16:44 Ibuprofen 600 Mg Tablet PO 09/06/24 16:39 600 mg ONCE ONE Administration Iohexol 70 ml 09/06/24 15:03 09/06/24 15:04 Iohexol 350 Mg/Ml 75 Ml Infus..Btl IV 09/06/24 15:04 70 ml ONCE ONE Administration Lidocaine 1 patch 09/06/24 16:38 09/06/24 16:44 Lidocaine 4 % Patch Adh..Patch TRANSDERMA 09/06/24 16:39 1 patch ONCE ONE Administration Protocol Medical Decision Making Medical Decision Making [facility] Narrative: 68-year-old female Canadian-speaking with a past medical history TIA, asthma, depression, anxiety, polyarthralgia, HTN, HLD, presenting to the ED complaining of left-sided neck pain radiating to head since last night with associated visual changes, described as seeing blurry w/black lines/dots to left eye yesterday. On exam vital signs stable, NAD, nontoxic appearing, physical exam as noted above with reproducible paraspinal left-sided neck tenderness, and pain elicited with neck ROM. No focal neuro deficits. Denies eye complaints at present. Ambulating with steady gait. Concern for cervical dissection vs arterial aneurysm vs ?temporal arteritis. Lower suspicion CVA/TIA with pain/no focal neuro deficits. Concern for MSK pain/strain. Lower suspicion for CVT or glaucoma. Low suspicion for corneal abrasion/ulceration or retinal detachment with resolution of ocular complaints Plan: Visual acuity, labs, CT angio head and neck, pain control Please refer to course for remaining clinical decision making, interpretation of labs/imaging results, and discussions with consultants and/or family members. Differential Diagnosis Differential Diagnoses: The differential diagnosis associated with the presentation includes As above Admission/Observation Consideration of admission/observation: Escalation of care including admission/observation considered Consult Healthcare Provider Management of the patient was discussed with: Auto Technician (Vascular) Lab Data [facility] Lab Attestation statement: I reviewed the patient's lab results. 09/06/24 14:06 09/06/24 14:06 Labs: Lab Results 09/06/24 Range/Units 14:06 WBC 9.8 (4.8-10.8) X10*3/uL RBC 4.00 L (4.20-5.50) X10*6/uL Hgb 12.0 (12.0-16.0) g/dl Hct 36.5 L (37.0-47.0) % MCV 91.3 (80.0-98.0) fL MCH 30.0 (27.0-33.0) pg MCHC 32.9 (31.0-35.0) g/dl RDW 13.3 (11.0-16.0) % Plt Count 271 (160-400) X10*3/uL MPV 10.6 (9.4-12.3) fL Immature Gran % (Auto) 0.3 (0.0-0.4) % Neut % (Auto) 75.7 H (45-73) % Lymph % (Auto) 16.8 L (20-40) % [place] % (Auto) 5.7 (2-11) % Eos % (Auto) 1.0 (0-4) % Baso % (Auto) 0.5 (0-2) % Lymph # (Auto) 1.6 (1.2-4.9) X10*3/uL [place] # (Auto) 0.6 (0.1-1.2) X10*3/uL Eos # (Auto) 0.1 (0.0-0.4) X10*3/uL Baso # (Auto) 0.1 (0.0-0.2) X10*3/uL Abs Immat Gran (auto) 0.03 (0.00-0.03) X10*3/uL Absolute Neuts (auto) 7.4 (2.0-8.3) x10*3/uL Absolute Nucleated RBC 0.000 (0.0-0.012) X10*3/uL Nucleated RBC % (auto) 0.0 (0.0-0.2) /100WBC ESR 48 H (0-20) MM/HR PT 12.8 H (10.9-12.4) SEC INR 1.1 (0.9-1.1) APTT 31.3 (26.0-36.8) SEC Sodium 139 (135-145) mmol/L Potassium 4.1 (3.3-5.1) mmol/L Chloride 104 (96-108) mmol/L Carbon Dioxide 30 H (22-29) mmol/L Anion Gap 9 L (12-20) BUN 14 (9-16) mg/dL Creatinine 0.88 (0.5-1.4) mg/dL Estim Creat Clear Calc 59.3 Estimated GFR > 60 Random Glucose 204 H (60-115) mg/dL Calcium 9.1 (8.4-10.2) mg/dL Magnesium 2.1 (1.6-2.6) mg/dL Total Bilirubin 0.4 (0.0-1.0) mg/dL Direct Bilirubin 0.2 (0.0-0.5) mg/dL AST 24 (5-31) U/L ALT 17 (0-31) U/L Alkaline Phosphatase 153 H (39-117) U/L C-Reactive Protein 1.59 H (< or = 0.50) mg/dL Total Protein 7.6 (6.5-8.0) g/dL Albumin 4.1 (3.5-5.0) g/dL Independent Interpretation I performed an independent interpretation of an: CT Scan Radiology Impression Discussion of test interpretation with radiology: I have reviewed the radiologist's reading. Independent Historian Clinical information obtained from an independent historian. History obtained from or confirmed by: Spouse External Record Review External record reviewed: Inpatient record, Office record, Outpatient record, Prior outpatient labs, Prior outpatient radiology, Primary care record and Outside ED record Tests considered The following testing was considered but not selected: As above Prescription Management I considered prescription management with: Pain Medication Chronic Conditions Patient?s care impacted by: Other Social Determinants Patient?s care significantly limited by Social Determinants of Health including: Other Social Determinant of Health Discharge Plan Discharge Clinical Impression: Acute neck pain, Visual changes, Fibromuscular dysplasia Patient Disposition: Still a Patient Instructions: Blurred Vision (ED), Acute Neck Pain (ED) Additional Instructions: Your CT scan results were discussed with vascular surgery, they recommend you are on a baby aspirin and Plavix daily. These or antiplatelet medications, they will make you bleed easier If you fall in hit your head or have any open cuts or wounds, you should be evaluated in an emergency department PLEASE AVOID NSAIDS INCLUDING IBUPROFEN, MOTRIN, ALEVE, NAPROXEN WHILE TAKING THESE MEDICATIONS In addition we are treating you for possible giant cell arteritis, prednisone as a steroid which you need to take daily. It is important you follow-up with vascular surgery for a temporal artery biopsy within the next 2 weeks Flexeril is a muscle relaxer, take at night as it makes you drowsy, do not drive, drink alcohol, or operate machinery while taking it Lidoderm patches are numbing patches, apply to painful area In addition take Tylenol at home If symptoms persist or worsen, pain becomes unbearable, you developed urinary retention or incontinence, CONTINUED VISION CHANGE OR LOSS or weakness return to the ED CT angio head neck IMPRESSION: 1. CT head demonstrates no acute intracranial hemorrhage or edematous infarct. 2. CTA head demonstrates no large vessel occlusion, saccular aneurysm, or dissection. 3. CTA neck demonstrates no hemodynamically significant stenosis, dissection, or aneurysm. Incidentally noted beaded appearance of the distal cervical ICAs bilaterally which may reflect fibromuscular dysplasia. Prescriptions: New clopidogrel [Plavix] 75 mg tablet 75 mg PO DAILY 30 Days Qty: 30 0RF acetaminophen [Tylenol Extra Strength] 500 mg tablet 500 mg PO Q6H PRN (Reason: fever or pain) Qty: 14 0RF lidocaine [Lidoderm] 5 % adhesive patch,medicated 1 patch topical DAILY MDD remove after 12 hours PRN (Reason: pain) Qty: 30 0RF Rx Instructions: leave on most painful area for up to 12 hrs cyclobenzaprine 5 mg tablet 5 mg PO Q8H PRN (Reason: pain (scale score 7-10)) 5 Days Qty: 14 0RF prednisone 20 mg tablet 60 mg PO DAILY 14 Days Qty: 42 0RF No Action (DME) AeroEclipse II Nebulizer [facility] [place] Rx Instructions .ROUTE .MEDSUPPLY Qty: 1 0RF Rx Instructions: As directed gabapentin 100 mg capsule 100 mg PO BEDTIME 30 Days Qty: 30 6RF (DME) walker [facility] [place] [facility] [place] See Rx Instructions .ROUTE .MEDSUPPLY Qty: 1 0RF Rx Instructions: As Directed albuterol sulfate 2.5 mg /3 mL (0.083 %) solution for nebulization 2.5 mg inhalation Q4-6H PRN (Reason: shortness of breath or wheezing) 30 Days Qty: 75 2RF atenolol 50 mg tablet 50 mg PO DAILY 90 Days Qty: 90 2RF aspirin 81 mg tablet,delayed release (DR/EC) 81 mg PO DAILY 90 Days Qty: 90 3RF calcium carbonate-vitamin D3 [Oyster Shell Calcium-Vit D3] 500 mg-10 mcg (400 unit) tablet 1 tab PO DAILY 90 Days Qty: 90 2RF buspirone 10 mg tablet 10 mg PO BID 90 Days Qty: 180 1RF losartan 25 mg tablet 25 mg PO DAILY 90 Days Qty: 90 1RF atorvastatin 20 mg tablet 20 mg PO BEDTIME 90 Days Qty: 90 1RF amlodipine 5 mg tablet 5 mg PO DAILY Qty: 30 2RF pioglitazone 15 mg tablet 15 mg PO DAILY 90 Days Qty: 90 1RF fluticasone propionate [Flonase Allergy Relief] 50 mcg/actuation spray,suspension 2 spray intranasal DAILY Qty: 16 0RF Rx Instructions: administer into each nostril ondansetron HCl 4 mg tablet 4 mg PO Q8-12H PRN (Reason: nausea and vomiting) Qty: 14 0RF ibuprofen 600 mg tablet 600 mg PO Q6H PRN (Reason: fever or pain) Qty: 30 0RF erythromycin 5 mg/gram (0.5 %) ointment 0.5 inch ophthalmic (eye) BID Qty: 3.5 0RF alcohol swabs Pads, Medicated topical citalopram 20 mg tablet 20 mg PO erythromycin 5 mg/gram (0.5 %) ointment 1 appl ophthalmic (eye) QID 5 Days Qty: 3.5 1RF Rx Instructions: Apply 0.5 inch to lower lid of right eye 4 times daily for 5 days metformin 500 mg tablet 500 mg PO BID 90 Days Qty: 180 1RF Ear Drops (carbamide peroxide) 6.5 % drops 5 drp otic (ears) DAILY 4 Days Qty: 15 1RF acetaminophen [Tylenol Arthritis Pain] 650 mg tablet extended release 650 mg PO Q8H PRN (Reason: pain) Qty: 90 4RF Citrucel 500 mg tablet 500 mg PO DAILY Qty: 90 2RF Rx Instructions: take it with full glass of water Myrbetriq 25 mg tablet extended release 24 hr 25 mg PO DAILY 90 Days Qty: 90 2RF omeprazole 20 mg capsule,delayed release(DR/EC) 20 mg PO BID Qty: 180 3RF docusate sodium 100 mg capsule 100 mg PO BEDTIME Qty: 90 3RF sennosides [Natural Senna Laxative] 8.6 mg tablet 17.2 mg PO BEDTIME Qty: 90 3RF Referrals: [facility] [place] [facility] [Provider Group] - 3 days Aure Barrett MD [Primary Care Provider] - 3 days Print Language: Canadian
[2024-09-06 14:09] LABS: MANUAL DIFF FLAG NO
[2024-09-06 14:15] LABS: Basophils Absolute Auto 0.1 X10*3/uL (0.0-0.2); Basophils Percent Auto 0.5 % (0-2); Eosinophils Absolute Auto 0.1 X10*3/uL (0.0-0.4); Hematocrit 36.5 % (37.0-47.0); Imm Gran Abs Auto 0.03 X10*3/uL (0.00-0.03); Imm Gran Pct Auto 0.3 % (0.0-0.4); Lymphocytes Absolute Auto 1.6 X10*3/uL (1.2-4.9); Lymphocytes Percent Auto 16.8 % (20-40); Mean Corpuscular HGB Conc 32.9 g/dl (31.0-35.0); Mean Corpuscular Volume 91.3 fL (80.0-98.0); Mean Platelet Volume 10.6 fL (9.4-12.3); Monocytes Absolute Auto 0.6 X10*3/uL (0.1-1.2); Monocytes Percent Auto 5.7 % (2-11); Neutrophils Absolute Auto 7.4 x10*3/uL (2.0-8.3); Neutrophils Percent Auto 75.7 % (45-73); Platelet Count 271 X10*3/uL (160-400); Red Cell Distribution Width 13.3 % (11.0-16.0); White Blood Count 9.8 X10*3/uL (4.8-10.8)
[2024-09-06 14:25] LABS: INTERNATIONAL NORM RATIO 1.1 (0.9-1.1); Prothrombin Time 12.8 SEC (10.9-12.4)
[2024-09-06 14:28] LABS: Partial Thromboplastin Time 31.3 SEC (26.0-36.8)
[2024-09-06 14:30] LABS: Alanine Aminotransferase 17 U/L (0-31); Albumin Level 4.1 g/dL (3.5-5.0); Alkaline Phosphatase 153 U/L (39-117); Anion Gap 9 (12-20); Aspartate Amino Transferase 24 U/L (5-31); Bilirubin Direct 0.2 mg/dL (0.0-0.5); Bilirubin Total 0.4 mg/dL (0.0-1.0); Blood Urea Nitrogen 14 mg/dL (9-16); Calcium 9.1 mg/dL (8.4-10.2); Carbon Dioxide 30 mmol/L (22-29); Chloride 104 mmol/L (96-108); Creatinine Clr Calc Pharmacy 59.3; Estimated Glomerular Filt Rate > 60; Glucose Random 204 mg/dL (60-115); Magnesium 2.1 mg/dL (1.6-2.6); Potassium 4.1 mmol/L (3.3-5.1); Sodium 139 mmol/L (135-145); Total Protein 7.6 g/dL (6.5-8.0)
[2024-09-06] MEDS: iohexoL 350 MG/ML 75 ML INFUS..BTL 70 ML IV (15:04)
[2024-09-06] MEDS: Acetaminophen 325 MG TABLET 975 MG PO (16:43)
[2024-09-06] MEDS: Ibuprofen 600 MG TABLET PO (16:44)
[2024-09-06] MEDS: Lidocaine 4 % Patch ADH..PATCH 1 PATCH TRANSDERMA (16:44)
[2024-09-06 18:29] LABS: C Reactive Protein 1.59 mg/dL (< or = 0.50)
[2024-09-06 19:15] LABS: Erythrocyte Sedimentation Rate 48 MM/HR (0-20)
[2024-09-06 19:16] VITALS: BP 144/74; PULSE 67; RESP 16; TEMP 36.6; O2SAT 99
[2024-09-06 19:50] VITALS: BP 144/74; PULSE 67; RESP 16; TEMP 36.6; O2SAT 99
== END 2024-09-06 20:00 | disposition home or self-care (01) ==
PROVIDERS: Physician Assistant; Emergency Provider Emergency Medicine Emergency Medical Services; PCP Internal Medicine
DX: M54.2 Cervicalgia (principal); H53.9 Unspecified visual disturbance; R51.9 Headache, unspecified; I10 Essential (primary) hypertension; E78.00 Pure hypercholesterolemia, unspecified
CPT/HCPCS: 36415; 70496; 70498; 80048; 80076; 83735; 85025; 85610; 85652; 85730; 86140; 99283; 99284; Q9967

== ENCOUNTER 2024-09-14 14:16 | Outpatient (AMB) | payer OTHER, SELFPAY ==
[2024-09-14 14:22] VITALS: BP 128/72; PULSE 72; O2SAT 99; BMI 34.3
--- NOTE | 2024-09-14 14:22 | A.OFFVIS_ITS ---
Vital Signs 09/14/24 14:22 Height 5 ft 2 in Weight 187 lb 6.287 oz BMI 34.3 BP 128/72 Blood Pressure Location Lt brachial Position Sitting Pulse 72 Pulse Source Pulse Oximeter Pulse Oximetry (%) 99 Oxygen Delivery Method Room Air Intake Visit Reasons: 2 month follow up Intake Note: PRESCRIPTIONS LAST GENERATED sennosides 8.6 mg tablet?(Natural Senna Laxative)?17.2 mg (2 x 8.6 mg) PO BEDTIME 90 tabs 3RF Tony,Nishi D 03/31/24 14:44 (Transmitted) docusate sodium 100 mg capsule?100 mg PO BEDTIME 90 caps 3RF Tony,Nishi D 03/31/24 14:44 (Transmitted) omeprazole 20 mg capsule,delayed release?20 mg PO BID 180 caps 3RF Tony,Nishi D 03/31/24 14:44 (Transmitted) Pt is still taking medications w/o difficulty Relevant Flags or Indicators ? Requires Roll Cutting Operator? Keyona Bueno presents in office today for a scheduled 4 mos FUV. CC; No recent labs, diagnostics Relevant GI Sx as reported per pt? None ? Hx of any recent surgeries? None Roll Cutting Operator Required: Yes Roll Cutting Operator Services: Roll Cutting Operator Present Roll Cutting Operator Name: Deidre [id number] Information Interpreted: non-clinical & clinical Accompanied by: Self / Same As Patient Allergies Penicillins Allergy (Intermediate, Verified 09/28/24 14:46) DIZZINESS, RASH tramadol [TRAMADOL] Allergy (Intermediate, Verified 09/28/24 14:46) NAUSEA & VOMITING egg [Egg] Adverse Reaction (Intermediate, Verified 09/28/24 14:46) NAUSEA & VOMITING morphine Adverse Reaction (Intermediate, Verified 09/28/24 14:46) Chest Pain oxycodone Adverse Reaction (Verified 09/28/24 14:46) Dizziness FANY DRINK Allergy (Intermediate, Uncoded 09/19/24 14:38) NAUSEA & VOMITING HPI HPI 2 month follow up: Details: LAST VISIT: GERD (gastroesophageal reflux disease) IBS (irritable bowel syndrome) Constipation Plan Patient had significant reflux and possible gastritis seen on upper GI series. Will increase omeprazole to twice a day. Avoid dietary triggers and late night snacking. Staying upright for minimum 3 hours after meals discussed with patient. Patient can continue taking Citrucel. Patient ran out of Senokot and Colace. Patient will start senna and Colace in the evening. Increase fluid intake and activity to promote better bowel motility. Patient will return in 2 months if patient will continue with symptoms will send her for upper endoscopy. Patient is agreeable to this plan and verbalizes understanding of instructions. She was given the opportunity to ask questions and all questions answered. ? Thank you for allowing me to participate in her care Medications New docusate sodium 100 mg PO BEDTIME 90 caps 3RF K59.00 sennosides (Natural Senna Laxative) 17.2 mg (2 x 8.6 mg) PO BEDTIME 90 tabs 3RF constipation K59.00 Changed Changed From omeprazole 20 mg PO DAILY 90 caps 3RF Changed To omeprazole 20 mg PO BID 180 caps 3RF TODAY'S VISIT Patient is here today for follow-up. Patient reports that she has been doing better, however she states that she continues to have a postprandial epigastric pain and occasional acid reflux. Patient denies any dyspepsia, dysphagia or odynophagia. Denies melena, hematochezia, unintentional weight loss or ribbon like stools. Patient denies any nausea or vomiting. Patient reports that she has moving her bowels better now that she is taking senna. Occasional postprandial abdominal bloating. Patient denies any other GI concerning symptoms. [facility] Medical History History of mammogram (~06/2024) PMB (postmenopausal bleeding) COVID-19 Impaired glucose regulation Dysuria Pelvic pain Burning with urination Fibroids Hiatal hernia Right shoulder pain Exposure to COVID-19 virus Mild depression TIA (transient ischemic attack) Asthma Back pain Abdominal pain Vaginal pruritus Vitamin D deficiency Left knee pain Left ankle pain Depression with anxiety Polyarthralgia Pure hypercholesterolemia Essential hypertension Surgical History History of tooth extraction History of colonoscopy History of cyst of breast History of hemicolectomy History of cholecystectomy History of appendectomy History of exploratory laparotomy Family History Father No problems noted. Mother Hypertension Stroke Diabetes Brother Leptospirosis Brother No problems noted. Family/Other FH: mental illness Son Hypertension Social History Household Members: Spouse Housing: Apartment Alcohol intake: never Patient Tobacco Use Status: Never used Tobacco e-Cigarette/Vaping Use: Never Used Second Hand Smoke Exposure: No service: No Current occupational status: disabled Sexual orientation: Straight/Heterosexual Gender identity: Female Cognitive needs: Yes Hearing needs: No Vision needs: Yes Female Reproductive History Menstrual Age of Menarche: 9 Review of Systems Const Denies weight gain and Denies weight loss ENT Reports no additional complaints, Denies dysphagia and Denies odynophagia Card Reports no additional complaints Resp Reports no additional complaints GI Denies abdominal pain, Denies belching, Denies melena, Reports bloating, Denies change in bowel habits, Reports constipation (Occasional), Denies dysphagia, Denies excessive flatus, Denies dyspepsia, Reports heartburn (Occasional), Denies diarrhea, Denies loose stools, Denies nausea, Denies odynophagia and Denies vomiting Musc Reports no additional complaints Neuro Reports no additional complaints Psych Reports no additional complaints Endo Reports no additional complaints Physical Exam Vital Signs: Last Vital Signs Pulse 72 09/14/24 14:22 BP 128/72 09/14/24 14:22 Pulse Ox 99 09/14/24 14:22 Oxygen Delivery Method Room Air 09/14/24 14:22 BMI result Body Mass Index 34.3 Const General: healthy appearing and no acute distress Nutritional Appearance: obese Orientation/consciousness: patient oriented x3 Resp Effort & Inspection: normal respiratory effort, able to speak in complete sentences, no tracheal deviation and symmetric chest movement Auscultation: clear to auscultation bilaterally Cardio Rate: regular rate GI Inspection: Yes normal to inspection, No distended and Yes obesity Palpation (GI): Soft to palpation, not firm, nontender and No hepatosplenomegaly present Auscultation: normal bowel sounds General: Yes no CVA tenderness Back/Spine/Pelvis Back: no CVA tenderness Skin General skin exam: elasticity normal, turgor normal and dry skin Neuro General: patient oriented x3 Psych Appearance: grossly normal Mental Status: mental status grossly normal Assessment & Plan Assessment & Plan (1) GERD (gastroesophageal reflux disease): Code(s): K21.9 - Gastro-esophageal reflux disease without esophagitis Category: Medical Qualifiers: Esophagitis presence: esophagitis presence not specified Qualified Code(s): K21.9 - Gastro-esophageal reflux disease without esophagitis (2) IBS (irritable bowel syndrome): Code(s): K58.9 - Irritable bowel syndrome, unspecified Qualifiers: Irritable bowel syndrome type: without diarrhea Qualified Code(s): K58.9 - Irritable bowel syndrome, unspecified (3) Constipation: Code(s): K59.00 - Constipation, unspecified Qualifiers: Constipation type: slow transit constipation Qualified Code(s): K59.01 - Slow transit constipation (4) Postprandial abdominal bloating: Code(s): R14.0 - Abdominal distension (gaseous) Plan Patient will continue senna. Increase fluid intake and activity to promote better bowel motility. Patient will increase fiber intake as well. Will change omeprazole to pantoprazole. Patient was encouraged to avoid dietary triggers and late night snacking. Staying upright for minimum 3 hours after meals discussed with patient. Low FODMAP diet discussed with patient. Avoiding food that makes her gassy. List of food recommended as well as list of food to avoid given to patient. Patient can take simethicone on as needed basis 2 to 3 times a day. Follow-up in 2-3 months, sooner on as needed basis. Patient is agreeable to this plan and verbalizes understanding of instructions. She was given the opportunity to ask questions and all questions answered. Thank you for allowing me to participate in her care Medications: New pantoprazole 40 mg PO BID 60 tabs 4RF K21.9 - Gastro-esophageal reflux disease without esophagitis simethicone (Gas Relief (simethicone)) 125 mg PO BID-TID PRN 90 tabs 3RF abdominal distention Discontinued omeprazole Discontinued Reason: Doctor's Order 20 mg PO BID 180 caps 3RF Coding Level of Care Code Est Pt Level 4 (17722) Complex EM visit Add On G2211 Diagnoses Gastroesophageal reflux disease, unspecified whether esophagitis present K21.9 Esophagitis presence: esophagitis presence not specified Irritable bowel syndrome without diarrhea K58.9 Irritable bowel syndrome type: without diarrhea Slow transit constipation K59.01 Constipation type: slow transit constipation Postprandial abdominal bloating R14.0 Time Spent (min) 35 Comment 25 minutes spent with patient and additional 10 minutes spent reviewing her records
== END 2024-09-14 15:10 | disposition home or self-care (01) ==
PROVIDERS: PCP Internal Medicine; Visit Provider Nurse Practitioner Family
DX: K21.9 Gastro-esophageal reflux disease without esophagitis (principal); K58.9 Irritable bowel syndrome, unspecified; K59.01 Slow transit constipation; R14.0 Abdominal distension (gaseous)
CPT/HCPCS: 99214; G2211

== ENCOUNTER → 2024-09-14 14:16 | Outpatient (BNVA) | payer OTHER, SELFPAY | PROVIDERS: PCP Internal Medicine; Visit Provider Nurse Practitioner Family | DX: K21.9 Gastro-esophageal reflux disease without esophagitis (principal); K58.9 Irritable bowel syndrome, unspecified; K59.01 Slow transit constipation; R14.0 Abdominal distension (gaseous) | CPT/HCPCS: 99212 ==

== ENCOUNTER 2024-09-19 13:35 | Outpatient (AMB) | payer OTHER, SELFPAY ==
--- NOTE | 2024-09-19 13:44 | A.OFFPC_ITS ---
Vital Signs 09/19/24 13:51 Height 5 ft 2 in Weight 187 lb 6 oz BMI 34.3 BP 130/72 Blood Pressure Location Lt brachial Position Sitting Pulse 77 Pulse Source Pulse Oximeter Pulse Oximetry (%) 99 Oxygen Delivery Method Room Air Intake Visit Reasons: [facility] [place] Neck pain/headaches Intake Note: Patient is here to follow-up after a visit the emergency department at [facility] [place] on 09/06/24. Pt decline flu shot today. Tour Actor Required: Yes Tour Actor Language: Garnett Machine Operator Name: Casper ([id number]) Information Interpreted: non-clinical & clinical Entry Level Installation Technician: Present Accompanied by: Daughter Allergies Penicillins Allergy (Intermediate, Verified 09/19/24 14:38) DIZZINESS, RASH tramadol [TRAMADOL] Allergy (Intermediate, Verified 09/19/24 14:38) NAUSEA & VOMITING egg [Egg] Adverse Reaction (Intermediate, Verified 09/19/24 14:38) NAUSEA & VOMITING morphine Adverse Reaction (Intermediate, Verified 09/19/24 14:38) Chest Pain oxycodone Adverse Reaction (Verified 09/19/24 14:38) Dizziness FANY DRINK Allergy (Intermediate, Uncoded 09/19/24 14:38) NAUSEA & VOMITING Medication List - Last Reconciled 09/19/24 by Beth Thompson PA-C acetaminophen (Tylenol Extra Strength) 500 mg PO Q6H PRN acetaminophen ER (Tylenol Arthritis Pain) 650 mg PO Q8H PRN albuterol sulfate 2.5 mg (3 mL) inhalation Q4-6H PRN 30 days alcohol swabs pad topical amlodipine 5 mg PO DAILY aspirin 81 mg PO DAILY 90 days atenolol 50 mg PO DAILY 90 days atorvastatin 20 mg PO BEDTIME 90 days blood pressure test kit-large (Advocate Blood Pressure Monitor kit) As directed buspirone 10 mg PO BID 90 days calcium carbonate-vitamin D3 500 mg-10 mcg (400 unit) (Oyster Shell Calcium- Vitamin D3) 1 tab PO DAILY 90 days carbamide peroxide 6.5% (Ear Drops (carbamide peroxide)) 5 drps otic (ears) DAILY 4 days citalopram 20 mg PO clopidogrel (Plavix) 75 mg PO DAILY 30 days cyclobenzaprine 5 mg PO Q8H PRN 5 days docusate sodium 100 mg PO BEDTIME erythromycin 0.5 inches ophthalmic (eye) BID erythromycin 1 appl ophthalmic (eye) QID 5 days fluticasone propionate 50 mcg/actuation (Flonase Allergy Relief) 2 sprays intranasal DAILY gabapentin 100 mg PO BEDTIME 30 days ibuprofen 600 mg PO Q6H PRN lidocaine 5% (Lidoderm) 1 patch topical DAILY PRN MDD remove after 12 hours losartan 25 mg PO DAILY 90 days metformin 500 mg PO BID 90 days methylcellulose (laxative) (Citrucel) 500 mg PO DAILY mirabegron ER (Myrbetriq) 25 mg PO DAILY 90 days nebulizers (AeroEclipse II Nebulizer) As directed ondansetron HCl 4 mg PO Q8-12H PRN pantoprazole 40 mg PO BID pioglitazone 15 mg PO DAILY 90 days sennosides (Natural Senna Laxative) 17.2 mg (2 x 8.6 mg) PO BEDTIME simethicone (Gas Relief (simethicone)) 125 mg PO BID-TID PRN walker As Directed Tobacco use date assessed: 09/19/24 Fall risk assessment: No Falls in past year Last assessed Fall Risk: 09/19/24 Dental Screening Dental Screen Date: 06/28/24 HPI HPI Comments History of Present Illness Details 68-year-old female presenting to the [facility] for follow-up evaluation after being seen in the emergency department on 09/06/2024 for left-sided neck pain and headache. Patient was seen in the emergency department on 09/06/2024 due to sudden-onset a left-sided neck pain radiating to her left side of her face/head. She had a CT and a CTA of her head. The CT scan of her head was negative for any acute processes. CTA they were questioning fibromuscular dysplasia. She was seen by vascular Dr. Mehta who did not believe this was fibromuscular dysplasia. Due to elevated CRP they considered giant cell arteritis and started her on prednisone 60 mg tablets daily for 2 weeks. Patient reports she took as prescribed. Patient states she is still having the left-sided head and facial pain. She also has decreased sensation to the left side of her face/head since 09/06/2024. Patient reports occasionally since she was seen in the emergency department she has noticed a flashing light to the left side of her left eye that is intermittent. It is not present at this time. She denies any trouble seeing at night or seeing any halos. She reports she recently had an eye exam 6 months ago and everything was within normal limits. She denies any recent falls or head trauma, fevers, neck pain or stiffness at this time, chest pain, weakness to any extremities, difficulty ambulating or performing ADLs. Patient has follow-up with Dr. Mehta vascular surgeon on 10/04/2024. 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 Patient received only 1 hour day for SHIRT LINE OPERATOR hours. She reports she feels like she needs more help with bathing, dressing, grocery shopping, laundry and activities of daily living. Patient denies any other symptoms complaints or concerns at this time. Family at bedside. [facility] Medical History History of mammogram (~06/2024) PMB (postmenopausal bleeding) COVID-19 Impaired glucose regulation Dysuria Pelvic pain Burning with urination Fibroids Hiatal hernia Right shoulder pain Exposure to COVID-19 virus Mild depression TIA (transient ischemic attack) Asthma Back pain Abdominal pain Vaginal pruritus Vitamin D deficiency Left knee pain Left ankle pain Depression with anxiety Polyarthralgia Pure hypercholesterolemia Essential hypertension Surgical History History of tooth extraction History of colonoscopy History of cyst of breast History of hemicolectomy History of cholecystectomy History of appendectomy History of exploratory laparotomy Family History Father No problems noted. Mother Hypertension Stroke Diabetes Brother Leptospirosis Brother No problems noted. Family/Other FH: mental illness Son Hypertension Social History Household Members: Spouse Housing: Apartment Alcohol intake: never Patient Tobacco Use Status: Never used Tobacco e-Cigarette/Vaping Use: Never Used Second Hand Smoke Exposure: No service: No Current occupational status: disabled Sexual orientation: Straight/Heterosexual Gender identity: Female Cognitive needs: Yes Hearing needs: No Vision needs: Yes Female Reproductive History Menstrual Age of Menarche: 9 Questionnaire Thrive Questionnaire Date Thrive assessed: 06/28/24 JESSICA-7 AMB Questionnaire JESSICA-7 Date JESSICA - 7 assessed: 06/28/24 Source: Developed by Drs. Dagoberto Mercer, Adry Valentin, Néstor Garcia and colleagues, with an educational zheng from [employer]. Review of Systems Const All systems reviewed & are unremarkable except as noted in HPI and below Physical exam (Primary Care) Vital Signs: Last Vital Signs Pulse 77 09/19/24 13:51 BP 130/72 09/19/24 13:51 Pulse Ox 99 09/19/24 13:51 Oxygen Delivery Method Room Air 09/19/24 13:51 Vital signs have been reviewed and are within normal limits. BMI result Body Mass Index 34.3 Tobacco/Smoking Status: Tobacco use Status Tobacco use date assessed 09/19/24 09/19/24 13:58 Patient Tobacco Use Status Never used Tobacco 09/19/24 13:44 e-Cigarette/Vaping Use Never Used 09/19/24 13:44 Thrive Assessment: Date of Thrive Assessment Date Thrive assessed 06/28/24 09/19/24 13:44 Const Other: Appearance: Alert. Oriented X3. No acute distress. Head: Normal external exam. Normocephalic. Atraumatic. Mild tenderness over the left temporal area and left facial bones. Eyes: Conjunctiva and sclera normal. Eyelids normal. Extraocular movements are intact. PERRLA. Funduscopic exam within normal limits. ENT: MMM. Normal voice. Neck: Normal inspection. Neck supple. FROM. No adenopathy. Thyroid Normal. No meningeal signs. No neck mass noted. CVS: Normal heart rate and rhythm. Heart sound normal. Pulses normal throughout. No murmurs/rales/gallops. Respiratory: No respiratory distress. Painless inspiration. Breath sounds normal. No wheezes/rales/rhonchi noted. Chest nontender. No crepitus is noted. No accessory muscle usage noted or decreased air movement noted. No signs of trauma. Abdomen: Soft and nontender. Nondistended. No guarding. No rigidity. Bowel sounds normal in all 4 quadrants. No distention noted. No organomegaly noted. No visible injury noted. No rebound tenderness. Back: Full range of motion noted. Skin: Skin warm and dry. Normal skin color. Normal skin turgor. No rashes/lesions/lacerations noted. Extremities: No lower extremity edema. No calf tenderness is noted. Extremities exhibit normal range of motion and nontender. Neuro: Oriented X 3. Moving all extremities. Normal steady gait. No focal neuro deficits noted. Vascular: + radial pulses b/l. Normal cap refill. No cyanosis noted. Coding Level of Care Code Est Pt Level 4 (64148) Complex EM visit Add On G2211 Diagnoses Headache R51.9 Assessment & Plan Assessment & Plan (1) Headache: Code(s): R51.9 - Headache, unspecified Category: Medical Plan: Nonspecific headache. On exam patient is alert oriented x3. Not in any acute distress. Normal funduscopic exam. Extraocular movements are intact. PERRLA. Normal strength to all 4 extremities. Normal steady gait. Not in any acute distress. No focal neuro deficits are noted. Plan Patient had elevated CRP while in the emergency department. Today will repeat CRP and ESR at this time. Patient already took 60 mg of prednisone daily for 6 weeks with no improvement in symptoms. Prednisone will be discontinued. Patient will be monitored and re-evaluated. Patient to follow-up with vascular surgeon on 10/04/2024 as scheduled. Orders: Orders Erythrocyte Sedimentation Rate Today R51.9 - Headache, unspecified CRP High Sensitivity Today R51.9 - Headache, unspecified
[2024-09-19 13:51] VITALS: BP 130/72; PULSE 77; O2SAT 99; BMI 34.3
== END 2024-09-19 14:16 | disposition home or self-care (01) ==
PROVIDERS: PCP Internal Medicine; Visit Provider Internal Medicine
DX: R51.9 Headache, unspecified (principal)

== ENCOUNTER → 2024-09-19 13:35 | Outpatient (BNVA) | payer OTHER, SELFPAY | PROVIDERS: PCP Internal Medicine; Visit Provider Internal Medicine | DX: R51.9 Headache, unspecified (principal) | CPT/HCPCS: 99212 ==

== ENCOUNTER 2024-09-28 14:44 | Outpatient (AMB) | payer OTHER, SELFPAY ==
--- NOTE | 2024-09-28 14:46 | MHC.OFFVIS ---
Intake Visit Reasons: pelvic pain/30 mins Intake Note: pt c/o vaginal discharge with odor and pelvic pain Registered Nurse Practitioner Required: Yes Registered Nurse Practitioner Language: X Ray Physician Services: Registered Nurse Practitioner Present (in person) Registered Nurse Practitioner Name: Iraida HERNANDEZ Information Interpreted: non-clinical & clinical Patient Financial Specialist: Patient Financial Specialist Present (Iraida) Allergies Penicillins Allergy (Intermediate, Verified 09/28/24 14:46) DIZZINESS, RASH tramadol [TRAMADOL] Allergy (Intermediate, Verified 09/28/24 14:46) NAUSEA & VOMITING egg [Egg] Adverse Reaction (Intermediate, Verified 09/28/24 14:46) NAUSEA & VOMITING morphine Adverse Reaction (Intermediate, Verified 09/28/24 14:46) Chest Pain oxycodone Adverse Reaction (Verified 09/28/24 14:46) Dizziness FANY DRINK Allergy (Intermediate, Uncoded 09/19/24 14:38) NAUSEA & VOMITING HPI Comments Details: Patient reports she has had pelvic pain and pressure for the last couple of weeks. She denies any UTI symptoms. She has not been sexually active for many years. Denies any vaginal bleeding. Urine dip was trace leukocytes and ketones. She admits to drinking caffeine in the a.m. only but not drinking much water throughout the day. History of fibroids she has an ultrasound scheduled for October 20, for her follow up six-month fibroid check. [facility] Medical History History of mammogram (~06/2024) PMB (postmenopausal bleeding) COVID-19 Impaired glucose regulation Dysuria Pelvic pain Burning with urination Fibroids Hiatal hernia Right shoulder pain Exposure to COVID-19 virus Mild depression TIA (transient ischemic attack) Asthma Back pain Abdominal pain Vaginal pruritus Vitamin D deficiency Left knee pain Left ankle pain Depression with anxiety Polyarthralgia Pure hypercholesterolemia Essential hypertension Surgical History History of tooth extraction History of colonoscopy History of cyst of breast History of hemicolectomy History of cholecystectomy History of appendectomy History of exploratory laparotomy Family History Father No problems noted. Mother Hypertension Stroke Diabetes Brother Leptospirosis Brother No problems noted. Family/Other FH: mental illness Son Hypertension Social History Household Members: Spouse Housing: Apartment Alcohol intake: never Patient Tobacco Use Status: Never used Tobacco e-Cigarette/Vaping Use: Never Used Second Hand Smoke Exposure: No service: No Current occupational status: disabled Sexual orientation: Straight/Heterosexual Gender identity: Female Cognitive needs: Yes Hearing needs: No Vision needs: Yes Female Reproductive History Menstrual Age of Menarche: 9 Review of Systems Const All systems reviewed & are unremarkable except as noted in HPI and below Physical Exam Const General: cooperative, healthy appearing and no acute distress Orientation/consciousness: patient oriented x3 GI Inspection: Yes normal to inspection Palpation (GI): Soft to palpation and Other GI palpation findings present (Nontender) Rectal Exam - Female: visual inspection normal General: Yes bladder normal to palpation External Female Exam: normal appearance of the urethra Speculum Exam - Vagina: normal appearance of the vagina, normal palpation and normal vaginal discharge Speculum Exam - Cervix: normal appearance of the cervix and normal palpation Bimanual exam- vagina & uterus: normal bimanual exam, normal palpation, uterine size normal, bladder normal to palpation, normal palpation, uterine shape normal and non-tender Bimanual Exam- Adnexa, other: normal adnexae and tender (Slightly tender no guarding) on the right Neuro General: patient oriented x3 Results AMB Urinalysis, Automated UA Leukoctes 0.5 Merlin/uL Last Edit by DAVID Martin on 09/28/24 15:06 UA Nitrite Negative Last Edit by DAVID Martin on 09/28/24 15:06 UA Urobilinogen 0 mg/dL Last Edit by DAVID Martin on 09/28/24 15:06 UA Protein 0.5 mg/dL Last Edit by DAVID Martin on 09/28/24 15:06 UA pH 6.0 Last Edit by DAVID Martin on 09/28/24 15:06 UA Blood 0 Lincoln/uL Last Edit by DAVID Martin on 09/28/24 15:06 UA Specific [place] 1.015 Last Edit by DAVID Martin on 09/28/24 15:06 UA Ketone Positive Last Edit by DAVID Martin on 09/28/24 15:06 trace Domitila Ordaz 09/28/24 15:06 UA Bilirubin 1 mg/dL Last Edit by DAVID Martin on 09/28/24 15:06 UA Glucose 0 mg/dL Last Edit by DAVID Martin on 09/28/24 15:06 Results Reviewed Results Reviewed: Laboratory Last Values Urine pH (Auto) 6.0 09/28/24 15:04 Specific [place] (Auto) 1.015 09/28/24 15:04 Urine Protein (Auto) 0.5 mg/dL 09/28/24 15:04 Glucose (UA)(Auto) 0 mg/dL 09/28/24 15:04 Urine Ketones (Auto) Positive 09/28/24 15:04 Urine Blood (Auto) 0 [place]/uL 09/28/24 15:04 Urine Nitrite (Auto) Negative 09/28/24 15:04 Urine Bilirubin (Auto) 1 mg/dL 09/28/24 15:04 Urine Urobilinogen (Auto) 0 mg/dL 09/28/24 15:04 Leukocyte Esterase (Auto) 0.5 Merlin/uL 09/28/24 15:04 Assessment & Plan Assessment & Plan (1) Pelvic pain: Code(s): R10.2 - Pelvic and perineal pain Category: Medical (2) Pelvic pressure in female: Code(s): R10.2 - Pelvic and perineal pain Plan Discussed: Ultrasound to be rescheduled for a sooner date, GC chlamydia and BV panel obtained, urine culture to be sent., [id number] self-help comfort measures reviewed, and warning signs when to seek emergent care, call the office sooner if any concerns. Advised to hydrate well and stress importance of water intake. Limit caffeine to 1 cup a day in the a.m. follow up with Urology and/or GI as needed. Follow up in person for test results and plan of care. The patient expressed understanding and agreement with the plan of care. All of her questions and concerns were addressed to the best of my ability. This note is constructed using voice recognition software. While every effort has been made to ensure accuracy, fuel system maintenance worker errors may have been included. Coding Diagnoses Pelvic pain R10.2 Pelvic pressure in female R10.2
== END 2024-09-28 15:30 | disposition home or self-care (01) ==
LOC: HO.HWS 14:44
PROVIDERS: PCP Internal Medicine; Visit Provider Advanced Practice Midwife
DX: R10.2 Pelvic and perineal pain (principal)

== ENCOUNTER 2024-09-28 14:44 | Outpatient (REF) | payer OTHER, SELFPAY ==
[2024-09-29 02:48] LABS: CT PCR NOT DETECTED (Not Detect.); NG PCR NOT DETECTED (Not Detect.)
[2024-09-29 08:54] LABS: Bacterial Vaginosis PCR NEGATIVE (Negative); Candida Group PCR NOT DETECTED (Not Detect); Candida glab krusei PCR NOT DETECTED (Not Detect); Trichomonas vaginalis PCR NOT DETECTED (Not Detect)
== END 2024-09-28 14:45 | disposition home or self-care (01) ==
LOC: HO.LAB 14:44
PROVIDERS: PCP Internal Medicine; Visit Provider Advanced Practice Midwife
DX: R10.2 Pelvic and perineal pain (principal)
CPT/HCPCS: 0352U; 81003; 87086; 87491; 87591

== ENCOUNTER 2024-09-28 15:04 | Outpatient (REF) | payer OTHER, SELFPAY | END 2024-09-28 15:05 | disposition home or self-care (01) | LOC: HO.LNP 15:04 | PROVIDERS: Visit Provider Advanced Practice Midwife | DX: Z13.89 Encounter for screening for other disorder (principal) ==

== ENCOUNTER 2024-09-30 13:02 | Outpatient (REF) | payer OTHER, SELFPAY | END 2024-09-30 13:03 | disposition home or self-care (01) | LOC: HO.US 13:02 | PROVIDERS: PCP Internal Medicine; Visit Provider Advanced Practice Midwife | DX: D21.9 Benign neoplasm of connective and other soft tissue, unspecified (principal); N95.0 Postmenopausal bleeding | CPT/HCPCS: 76830; 76856 ==

== ENCOUNTER 2024-10-04 10:58 | Outpatient (AMB) | payer OTHER, SELFPAY ==
--- NOTE | 2024-10-04 11:03 | MHC.OFFVIS ---
Intake Visit Reasons: ED referral for Temporal arteritis Intake Note: Patient presents for temporal arteritis. She has pain on the left side of her face near her eye. Accompanied by: Self / Same As Patient Allergies Penicillins Allergy (Intermediate, Verified 10/04/24 11:07) DIZZINESS, RASH tramadol [TRAMADOL] Allergy (Intermediate, Verified 10/04/24 11:07) NAUSEA & VOMITING egg [Egg] Adverse Reaction (Intermediate, Verified 10/04/24 11:07) NAUSEA & VOMITING morphine Adverse Reaction (Intermediate, Verified 10/04/24 11:07) Chest Pain oxycodone Adverse Reaction (Verified 10/04/24 11:07) Dizziness FANY DRINK Allergy (Intermediate, Uncoded 09/19/24 14:38) NAUSEA & VOMITING HPI HPI ED referral for Temporal arteritis: Details: Very pleasant 68-year-old female presents for evaluation regarding left neck pain. She was actually seen in the emergency room on 09/06 and was subsequently worked up. She reported at that time she had severe left neck pain which radiated up her neck into her head and cause some sort of visual blurriness. She was extensively worked up in the emergency room including labs and a CT scan. Upon workup of the CT scan there was concern of actually fibromuscular dysplasia. This was more in the cervical ICA. She now presents to us for vascular evaluation. [facility], [facility] Medical History History of mammogram (~06/2024) PMB (postmenopausal bleeding) COVID-19 Impaired glucose regulation Dysuria Pelvic pain Burning with urination Fibroids Hiatal hernia Right shoulder pain Exposure to COVID-19 virus Mild depression TIA (transient ischemic attack) Asthma Back pain Abdominal pain Vaginal pruritus Vitamin D deficiency Left knee pain Left ankle pain Depression with anxiety Polyarthralgia Pure hypercholesterolemia Essential hypertension Surgical History History of tooth extraction History of colonoscopy History of cyst of breast History of hemicolectomy History of cholecystectomy History of appendectomy History of exploratory laparotomy Family History Father No problems noted. Mother Hypertension Stroke Diabetes Brother Leptospirosis Brother No problems noted. Family/Other FH: mental illness Son Hypertension Social History Household Members: Spouse Housing: Apartment Alcohol intake: never Patient Tobacco Use Status: Never used Tobacco e-Cigarette/Vaping Use: Never Used Second Hand Smoke Exposure: No service: No Current occupational status: disabled Sexual orientation: Straight/Heterosexual Gender identity: Female Cognitive needs: Yes Hearing needs: No Vision needs: Yes Female Reproductive History Menstrual Age of Menarche: 9 Review of Systems Const All systems reviewed & are unremarkable except as noted in HPI and below Reports no additional complaints ENT Reports Normal hearing present Card Denies chest pain, Denies chest pain at rest, Denies chest pain with activity and Denies pedal edema Resp Denies cough GI Denies abdominal pain Musc Denies abnormal gait, Denies muscle cramps and Denies radiating pain into limb Skin/Breast Denies skin ulcer and Denies wounds Neuro Reports Normal hearing present and Denies abnormal gait Psych Reports no additional complaints Physical Exam Const General: cooperative, healthy appearing and comfortable Orientation/consciousness: oriented to person, oriented to place and oriented to time HEENT Other: Pain on direct palpation of the sternocleidomastoid. No pain noted on the temporal region Head: Yes normal to inspection Neck Neck: Yes normal visual inspection Carotids: no bruits Chest Chest palpation & inspection: normal inspection of the chest Resp Effort & Inspection: normal respiratory effort and able to speak in complete sentences Auscultation: clear to auscultation bilaterally, no crackles, no rales, no rhonchi and no wheezes Cardio Rate: regular rate Rhythm: regular rhythm Heart sounds: S1 normal heart sound present and S2 normal heart sound present Bruits: no carotid bruits Peripheral pulses: Peripheral pulses 2+ throughout GI Inspection: Yes normal to inspection Skin Wounds: no wounds Hair: normal Neuro General: oriented to person, oriented to place and oriented to time Cranial nerves: Yes CN's II-XII intact bilaterally and Yes Normal hearing present Cognition (Neuro): normal cognition Motor exam (neuro): 5/5 motor strength present throughout Extrem Other: venous exam: No significant superficial varicosities or spider telangiectasias, minimal edema General: No clubbing, No cyanosis and No edema Psych Appearance: grossly normal Mental Status: mental status grossly normal Speech and movement: Normal speech and movement present Results Reviewed Results Reviewed: CT scan dated 09/06/2024 demonstrates no hemodynamically significant stenosis dissection or aneurysm. Incidental note of cervical ICA questionable FMD. Upon my review of images I did not appreciate this although intracranial region is not my area of expertise. Assessment & Plan Assessment & Plan (1) Bilateral carotid artery stenosis: Code(s): I65.23 - Occlusion and stenosis of bilateral carotid arteries Category: Medical Plan: In short there is concern about FMD of the carotids. I am not concerned about temporal arteritis at the current time she denies any headaches or visual issues. It is more of musculoskeletal pain that is of concern. This was discussed with the patient. I have taken the liberty of ordering a carotid ultrasound to better elucidate if there is an extracranial component of this. She will follow up with us after testing. Thank you for allowing us to assist in her care. If there are any questions or concerns please do not hesitate to contact us Orders: Orders US carotid duplex BI 1 Week I65.23 - Occlusion and stenosis of bilateral carotid arteries Coding Level of Care Code New Pt Level 4 (47946) Diagnoses Bilateral carotid artery stenosis I65.23
== END 2024-10-04 11:24 | disposition home or self-care (01) ==
PROVIDERS: PCP Internal Medicine; Visit Provider Surgery Vascular Surgery
DX: I65.23 Occlusion and stenosis of bilateral carotid arteries (principal)
CPT/HCPCS: 99204

== ENCOUNTER → 2024-10-04 10:58 | Outpatient (BNVA) | payer OTHER, SELFPAY | PROVIDERS: PCP Internal Medicine; Visit Provider Surgery Vascular Surgery | DX: I65.23 Occlusion and stenosis of bilateral carotid arteries (principal) | CPT/HCPCS: 99202 ==

== ENCOUNTER 2024-10-11 10:11 | Outpatient (REF) | payer OTHER, SELFPAY ==
--- NOTE | ~2024-10-11 | US_ITS ---
EXAMINATION: US EXTRACRANIAL CAROTID DUPLEX, BILATERAL CLINICAL INFORMATION: Occlusion and stenosis of bilateral carotid arteries COMPARISON: Carotid ultrasound 06/26/2010 (report only) TECHNIQUE: Real-time ultrasound and Doppler techniques (integrating B-mode 2-D vascular images, Doppler spectral analysis and color-flow Doppler imaging) were utilized to interrogate the extracranial carotid arteries, the vertebral arteries and proximal subclavian arteries bilaterally. The degree of stenosis is determined by criteria similar to NASCET. FINDINGS: Right Side: 1. There is mild atherosclerotic plaque seen in the bifurcation/proximal ICA region. 2. The common carotid artery PSV proximally is 64 cm/s and distally 80 cm/s. 3. The proximal internal carotid artery velocities are 90 cm/s systolic and 18 cm/s diastolic. 4. The proximal external carotid artery PSV is 104 cm/s. 5. The vertebral artery shows antegrade flow. 6. The subclavian artery waveforms are normal. Left Side: 1. There is mild atherosclerotic plaque seen in the bifurcation/proximal ICA region. 2. The common carotid artery PSV proximally is 111 cm/s and distally 96 cm/s. 3. The proximal internal carotid artery velocities are 91 cm/s systolic and 24 cm/s diastolic. 4. The proximal external carotid artery PSV is 88 cm/s. 5. The vertebral artery shows antegrade flow. 6. The subclavian artery waveforms are normal. US/US carotid duplex BI IMPRESSION: 1. RIGHT: Minimal, non-hemodynamically significant stenosis of the proximal right internal carotid artery corresponding to a 0-49% stenosis by velocity criteria. 2. LEFT: Minimal, non-hemodynamically significant stenosis of the proximal left internal carotid artery corresponding to a 0-49% stenosis by velocity criteria. 3. There is no change in the category severity of disease when compared to the previous report dated 06/26/2010. Electronically signed by: Kurt Hernandez MD 10/14/2024 12:51 AM EST
== END 2024-10-11 10:12 | disposition home or self-care (01) ==
LOC: HO.US 10:11
PROVIDERS: PCP Internal Medicine; Visit Provider Surgery Vascular Surgery
DX: I65.23 Occlusion and stenosis of bilateral carotid arteries (principal)
CPT/HCPCS: 93880

== ENCOUNTER 2024-10-25 13:55 | Outpatient (AMB) | payer OTHER, SELFPAY ==
--- NOTE | 2024-10-25 14:03 | A.OFFVIS_ITS ---
Vital Signs 10/25/24 14:04 Height 5 ft 2 in Weight 187 lb BMI 34.2 BP 98/68 Blood Pressure Location Rt brachial Position Sitting Intake Visit Reasons: follow up s/p Carotid US 10/11/24 Intake Note: follow up carotid US 10/11/24, no complaints Accompanied by: Self / Same As Patient Allergies Penicillins Allergy (Intermediate, Verified 10/25/24 14:05) DIZZINESS, RASH tramadol [TRAMADOL] Allergy (Intermediate, Verified 10/25/24 14:05) NAUSEA & VOMITING egg [Egg] Adverse Reaction (Intermediate, Verified 10/25/24 14:05) NAUSEA & VOMITING morphine Adverse Reaction (Intermediate, Verified 10/25/24 14:05) Chest Pain oxycodone Adverse Reaction (Verified 10/25/24 14:05) Dizziness FANY DRINK Allergy (Intermediate, Uncoded 10/25/24 14:05) NAUSEA & VOMITING HPI HPI follow up s/p Carotid US 10/11/24: Details: Very pleasant 68-year-old female presents for follow-up regarding carotid disease. She actually presented to the emergency room regarding left neck pain on 09/06/2024. She has worked up and at that time there was actually concern of FMD. She now presents for follow-up evaluation with carotid ultrasound. She continues to have this left neck pain which she points to the sternocleidomastoid and reports that it has improved since August [facility] Medical History History of mammogram (~06/2024) PMB (postmenopausal bleeding) COVID-19 Impaired glucose regulation Dysuria Pelvic pain Burning with urination Fibroids Hiatal hernia Right shoulder pain Exposure to COVID-19 virus Mild depression TIA (transient ischemic attack) Asthma Back pain Abdominal pain Vaginal pruritus Vitamin D deficiency Left knee pain Left ankle pain Depression with anxiety Polyarthralgia Pure hypercholesterolemia Essential hypertension Surgical History History of tooth extraction History of colonoscopy History of cyst of breast History of hemicolectomy History of cholecystectomy History of appendectomy History of exploratory laparotomy Family History Father No problems noted. Mother Hypertension Stroke Diabetes Brother Leptospirosis Brother No problems noted. Family/Other FH: mental illness Son Hypertension Social History Household Members: Spouse Housing: Apartment Alcohol intake: never Patient Tobacco Use Status: Never used Tobacco e-Cigarette/Vaping Use: Never Used Second Hand Smoke Exposure: No service: No Current occupational status: disabled Sexual orientation: Straight/Heterosexual Gender identity: Female Cognitive needs: Yes Hearing needs: No Vision needs: Yes Female Reproductive History Menstrual Age of Menarche: 9 Review of Systems Const All systems reviewed & are unremarkable except as noted in HPI and below Reports no additional complaints ENT Reports Normal hearing present Card Denies chest pain, Denies chest pain at rest, Denies chest pain with activity and Denies pedal edema Resp Denies cough GI Denies abdominal pain Musc Denies abnormal gait, Denies muscle cramps and Denies radiating pain into limb Skin/Breast Denies skin ulcer and Denies wounds Neuro Reports Normal hearing present and Denies abnormal gait Psych Reports no additional complaints Physical Exam Vital Signs: Last Vital Signs BP 98/68 10/25/24 14:04 BMI result Body Mass Index 34.2 Const General: cooperative, healthy appearing and comfortable Orientation/consciousness: oriented to person, oriented to place and oriented to time HEENT Head: Yes normal to inspection Neck Neck: Yes normal visual inspection Carotids: no bruits Chest Chest palpation & inspection: normal inspection of the chest Resp Effort & Inspection: normal respiratory effort and able to speak in complete sentences Auscultation: clear to auscultation bilaterally, no crackles, no rales, no rhonchi and no wheezes Cardio Rate: regular rate Rhythm: regular rhythm Heart sounds: S1 normal heart sound present and S2 normal heart sound present Bruits: no carotid bruits Peripheral pulses: Peripheral pulses 2+ throughout GI Inspection: Yes normal to inspection Skin Wounds: no wounds Hair: normal Neuro General: oriented to person, oriented to place and oriented to time Cranial nerves: Yes CN's II-XII intact bilaterally and Yes Normal hearing present Cognition (Neuro): normal cognition Motor exam (neuro): 5/5 motor strength present throughout Extrem Other: venous exam: No significant superficial varicosities or spider telangiectasias, minimal edema General: No clubbing, No cyanosis and No edema Psych Appearance: grossly normal Mental Status: mental status grossly normal Speech and movement: Normal speech and movement present Results Reviewed Results Reviewed: Carotid ultrasound from 10/11/2024 demonstrates bilateral carotids 0-49% stenosis. Written report and images were reviewed. Assessment & Plan Assessment & Plan (1) Bilateral carotid artery stenosis: Code(s): I65.23 - Occlusion and stenosis of bilateral carotid arteries Category: Medical Plan: In short patient does not have any significant carotid disease. I do believe that FMD read was a bit of an over read on CT scan. There is no evidence of this on ultrasound. I do think that her neck pain may be more musculoskeletal as she does have pinpoint tenderness on the sternocleidomastoid. Including the trapezius muscles as well. At the current time no vascular follow-up is required. And we did discuss her musculoskeletal pain and should that progress may benefit from further evaluation of that. She will follow up with us on an as-needed basis. Thank you for allowing us to assist in her care. Coding Level of Care Code Est Pt Level 4 (47652) Diagnoses Bilateral carotid artery stenosis I65.23
[2024-10-25 14:04] VITALS: BP 98/68; BMI 34.2
== END 2024-10-25 14:24 | disposition home or self-care (01) ==
PROVIDERS: PCP Internal Medicine; Visit Provider Surgery Vascular Surgery
DX: I65.23 Occlusion and stenosis of bilateral carotid arteries (principal)
CPT/HCPCS: 99214

== ENCOUNTER → 2024-10-25 13:55 | Outpatient (BNVA) | payer OTHER, SELFPAY | PROVIDERS: PCP Internal Medicine; Visit Provider Surgery Vascular Surgery | DX: I65.23 Occlusion and stenosis of bilateral carotid arteries (principal) | CPT/HCPCS: 99212 ==

== ENCOUNTER 2024-11-01 13:37 | Outpatient (REF) | payer OTHER, SELFPAY ==
[2024-11-01 16:17] LABS: Bacterial Vaginosis PCR NEGATIVE (Negative); Candida Group PCR NOT DETECTED (Not Detect); Candida glab krusei PCR NOT DETECTED (Not Detect); Trichomonas vaginalis PCR NOT DETECTED (Not Detect)
== END 2024-11-01 13:38 | disposition home or self-care (01) ==
LOC: HO.LAB 13:37
PROVIDERS: PCP Internal Medicine; Visit Provider Advanced Practice Midwife
DX: N89.8 Other specified noninflammatory disorders of vagina (principal); D21.9 Benign neoplasm of connective and other soft tissue, unspecified; Z98.890 Other specified postprocedural states
CPT/HCPCS: 81515; 99212

== ENCOUNTER 2024-11-01 13:37 | Outpatient (AMB) | payer OTHER, SELFPAY ==
[2024-11-01 13:51] VITALS: BP 144/80; BMI 34.2
--- NOTE | 2024-11-01 13:51 | A.OFFVIS_ITS ---
Vital Signs 11/01/24 13:51 Height 5 ft 2 in Weight 187 lb BMI 34.2 BP 144/80 H Intake Visit Reasons: US follow up/EMB procedure Actuarial Clerk Required: Yes Actuarial Clerk Language: Tariff Clerk Services: Actuarial Clerk Present (in person) Actuarial Clerk Name: Iraida Rehman DAVID Information Interpreted: non-clinical & clinical Accompanied by: Self / Same As Patient Allergies Penicillins Allergy (Intermediate, Verified 11/01/24 13:53) DIZZINESS, RASH tramadol [TRAMADOL] Allergy (Intermediate, Verified 11/01/24 13:53) NAUSEA & VOMITING egg [Egg] Adverse Reaction (Intermediate, Verified 11/01/24 13:53) NAUSEA & VOMITING morphine Adverse Reaction (Intermediate, Verified 11/01/24 13:53) Chest Pain oxycodone Adverse Reaction (Verified 11/01/24 13:53) Dizziness FANY DRINK Allergy (Intermediate, Uncoded 11/01/24 13:53) NAUSEA & VOMITING Post menopausal: Yes HPI Comments Details: Patient is here today for a follow up pelvic ultrasound, she was due to have an endometrial biopsy procedure but declines to have it done today as she does not feel prepared. She has a history of fluid in the endometrial canal. She denies any post menopausal bleeding. She admits to having some vaginal odor and some brownish discharge at times. She denies any pelvic pain. She would prefer not to have a pelvic exam today. [facility] Medical History History of mammogram (~06/2024) PMB (postmenopausal bleeding) COVID-19 Impaired glucose regulation Dysuria Pelvic pain Burning with urination Fibroids Hiatal hernia Right shoulder pain Exposure to COVID-19 virus Mild depression TIA (transient ischemic attack) Asthma Back pain Abdominal pain Vaginal pruritus Vitamin D deficiency Left knee pain Left ankle pain Depression with anxiety Polyarthralgia Pure hypercholesterolemia Essential hypertension Surgical History History of tooth extraction History of colonoscopy History of cyst of breast History of hemicolectomy History of cholecystectomy History of appendectomy History of exploratory laparotomy Family History Father No problems noted. Mother Hypertension Stroke Diabetes Brother Leptospirosis Brother No problems noted. Family/Other FH: mental illness Son Hypertension Social History Household Members: Spouse Housing: Apartment Alcohol intake: never Patient Tobacco Use Status: Never used Tobacco e-Cigarette/Vaping Use: Never Used Second Hand Smoke Exposure: No service: No Current occupational status: disabled Sexual orientation: Straight/Heterosexual Gender identity: Female Cognitive needs: Yes Hearing needs: No Vision needs: Yes Female Reproductive History Menstrual Age of Menarche: 9 Physical Exam Vital Signs: Last Vital Signs BP 144/80 H 11/01/24 13:51 BMI result Body Mass Index 34.2 Other: Patient allowed a Q-tip exam only, inserted blindly to obtain BV panel results Results Reviewed Results Reviewed: [address] [address] Ultrasound Report Signed Patient: Ximena Lund MR#: [id number] : 1955 Acct:[id number] Age/Sex: 68 / F ADM Date: 09/30/24 Loc: HO.US Attending Dr: Scarlett Guzman CNM Ordering Physician: Scarlett Guzman CNM Date of Service: 09/30/24 Procedure(s): US pelvic and transvaginal Accession Number(s): [id number] cc: Scarlett Guzman CNM; Aure Barrett MD~ EXAMINATION: US PELVIS CLINICAL INFORMATION: Leiomyoma of uterus, denies pain, postmenopausal. COMPARISON: 05/17/2024. TECHNIQUE: Ultrasound of the pelvis is performed using both transabdominal and transvaginal transducers along with Doppler. Transvaginal imaging is performed due to inadequate visualization transabdominally. FINDINGS: The anteverted uterus measures 8.1 x 4.1 x 4.3 cm, volume 75.5 mL. A 4.0 x 4.0 x 3.5 cm fibroid, previously 2.7 x 2.3 x 2.8 cm. A 1.1 x 0.9 x 0.9 cm fibroid, previously 1.2 x 0.9 x 1.0 cm. A 1.3 x 1.5 x 1.2 cm uterine hyperechoic lesion was not appreciated on the prior exam. Endometrium not visualized due to intrauterine heterogeneity and fibroids. Fluid within the lower uterine segment and endometrial canal. RIGHT ovary measures 1.8 x 1.2 x 1.4 cm, volume 1.6 mL. LEFT ovary measures 1.4 x 0.9 x 1.1 cm, volume 0.8 mL. US/US pelvic and transvaginal IMPRESSION: 1. Fibroid uterus. 2. Endometrium not visualized due to intrauterine heterogeneity and fibroids. 3. Fluid within the lower uterine segment and endometrial canal. 4. Nabothian cysts in the cervix. Electronically signed by: Seble Garcia MD 10/25/2024 05:24 AM EST Dictated By: Seble Garcia MD Signed By: <Electronically signed by Seble Garcia MD in OV> 10/25/24 05 DD/ 1342 TD/TT: 09/30/24 1402 Anesthesiologist Assistant: Assessment & Plan Assessment & Plan (1) Vaginal odor: Code(s): N89.8 - Other specified noninflammatory disorders of vagina (2) Fibroids: Code(s): D21.9 - Benign neoplasm of connective and other soft tissue, unspecified Category: Medical (3) Encounter to discuss test results: Code(s): Z71.2 - Person consulting for explanation of examination or test findings Plan Discussed: Ultrasound results- 3 fibroids, one new fibroid, one stable, 1 slightly increased. Plan repeat pelvic ultrasound in 5 months. Rescheduled endometrial procedure. BV swab done, await results for plan of care. Counseled regarding anticipatory guidance in the use of eating and drinking taking either Tylenol or ibuprofen whatever as tolerated not contraindicated per manufacture's recommendation 1 hour before her endometrial biopsy procedure. The patient expressed understanding and agreement with the plan of care. All of her questions and concerns were addressed to the best of my ability. This note is constructed using voice recognition software. While every effort has been made to ensure accuracy, auctioneer automobile errors may have been included. Orders: Orders Bacterial Vaginosis Panel Today N89.8 - Other specified noninflammatory disorders of vagina US pelvic and transvaginal 02/27/25 D21.9 - Benign neoplasm of connective and other soft tissue, unspecified Coding Level of Care Code Est Pt Level 2 (36138) Diagnoses Vaginal odor N89.8 Fibroids D21.9 Encounter to discuss test results Z71.2
== END 2024-11-01 14:17 | disposition home or self-care (01) ==
LOC: HO.HWS 13:37
PROVIDERS: PCP Internal Medicine; Visit Provider Advanced Practice Midwife
DX: N89.8 Other specified noninflammatory disorders of vagina (principal); D21.9 Benign neoplasm of connective and other soft tissue, unspecified; Z71.2 Person consulting for explanation of examination or test findings
CPT/HCPCS: 99212

== ENCOUNTER 2024-11-09 14:36 | Outpatient (REF) | payer OTHER, SELFPAY ==
--- NOTE | ~2024-11-09 | XR_ITS ---
CLINICAL HISTORY: M25.551 - Pain in right hip 2 view, pelvis and right hip Comparison: None Findings: No acute fracture or dislocation is identified. Mild marginal osteophyte formation is seen at the acetabular roof. The femoroacetabular joint space is preserved. Several pelvic calcifications are noted, likely representing phleboliths. IMPRESSION: No acute osseous abnormality is identified. This document has been electronically signed by: Kamila Avila on 11/11/2024 05:35:20
--- NOTE | ~2024-11-09 | XR_ITS ---
CLINICAL HISTORY: M54.31 - Sciatica, right side Lumbar spine three views Comparison: None Findings: Mild levoscoliosis apex L3 . Slight degenerative grade 1 retrolisthesis of the L3. Otherwise normal anterior-posterior alignment. Normal vertebral body height. No acute compression fracture. Generalized disc space narrowing all levels slightly greater at L2-3, L3-4 and L5-S1. 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 Pedicles intact. No destructive lesion apparent. Intact SI joints. Bowel surgery right lateral abdomen and cholecystectomy. Nonobstructive bowel gas pattern. No opaque calculi. Impression: Generalized degenerative changes as noted. No acute bone abnormality. This document has been electronically signed by: Rhys Bishop MD on 11/11/2024 04:58:13
[2024-11-09 16:43] LABS: Influenza A PCR NEGATIVE (Negative); Influenza B PCR NEGATIVE (Negative); Resp Syncy Virus RNA Qual PCR NEGATIVE (Negative); SARS COV2 PCR INHOUSE NEGATIVE (Negative)
[2024-11-09 17:37] LABS: Alanine Aminotransferase 14 U/L (0-31); Albumin Level 4.1 g/dL (3.5-5.0); Alkaline Phosphatase 144 U/L (39-117); Anion Gap 9 (12-20); Aspartate Amino Transferase 26 U/L (5-31); Bilirubin Total 0.3 mg/dL (0.0-1.0); Blood Urea Nitrogen 11 mg/dL (9-16); Calcium 9.3 mg/dL (8.4-10.2); Carbon Dioxide 25 mmol/L (22-29); Chloride 109 mmol/L (96-108); Cholesterol 95 mg/dL (<200); Estimated Glomerular Filt Rate > 60; Glucose Fasting 75 mg/dL (60-99); HDL Cholesterol 35 mg/dL (>40); LDL Cholesterol Calculated 30 mg/dL (<100); Potassium 4.1 mmol/L (3.3-5.1); Sodium 139 mmol/L (135-145); Total Protein 7.6 g/dL (6.5-8.0); Triglycerides 153 mg/dL (<150)
[2024-11-09 17:40] LABS: Creatinine Urine 184.02 mg/dL; Microalbum/Creatinine Ratio Ur 5.9 ug/mg cr (<30)
== END 2024-11-09 14:37 | disposition home or self-care (01) ==
LOC: HO.XRAY 14:36
PROVIDERS: PCP Internal Medicine; Visit Provider Internal Medicine
DX: M25.551 Pain in right hip (principal); M54.31 Sciatica, right side; E11.9 Type 2 diabetes mellitus without complications; I10 Essential (primary) hypertension; F32.0 Major depressive disorder, single episode, mild; E78.00 Pure hypercholesterolemia, unspecified; Z79.899 Other long term (current) drug therapy; Z28.21 Immunization not carried out because of patient refusal; R09.89 Other specified symptoms and signs involving the circulatory and respiratory systems; E55.9 Vitamin D deficiency, unspecified
CPT/HCPCS: 0241U; 72100; 73502; 80053; 80061; 82043; 82306; 82570; 83036; 90471; 96127; 99212

== ENCOUNTER 2024-11-09 14:36 | Outpatient (AMB) | payer OTHER, SELFPAY ==
[2024-11-09 14:51] VITALS: BP 130/82; BMI 33.8
--- NOTE | 2024-11-09 14:51 | MHC.PC.OV ---
Vital Signs 11/09/24 14:51 Height 5 ft 2 in Weight 185 lb BMI 33.8 BP 130/82 Blood Pressure Location Lt brachial Position Sitting Intake Visit Reasons: dm Intake Note: Patient here for a follow up DM, c/o flu symptoms, right leg pain and burning from hip down Clinical Psychologist Private Practice Required: Yes Clinical Psychologist Private Practice Language: Block Saw Operator Name: Aure Horton MD Information Interpreted: non-clinical & clinical Accompanied by: Self / Same As Patient Allergies Penicillins Allergy (Intermediate, Verified 11/09/24 14:59) DIZZINESS, RASH tramadol [TRAMADOL] Allergy (Intermediate, Verified 11/09/24 14:59) NAUSEA & VOMITING egg [Egg] Adverse Reaction (Intermediate, Verified 11/09/24 14:59) NAUSEA & VOMITING morphine Adverse Reaction (Intermediate, Verified 11/09/24 14:59) Chest Pain oxycodone Adverse Reaction (Verified 11/09/24 14:59) Dizziness FANY DRINK Allergy (Intermediate, Uncoded 11/09/24 14:59) NAUSEA & VOMITING Medication List - Last Reconciled 11/09/24 by Aure Horton MD acetaminophen (Tylenol Extra Strength) 500 mg PO Q6H PRN acetaminophen ER (Tylenol Arthritis Pain) 650 mg PO Q8H PRN albuterol sulfate 2.5 mg (3 mL) inhalation Q4-6H PRN 30 days alcohol swabs pad topical amlodipine 5 mg PO DAILY aspirin 81 mg PO DAILY 90 days atenolol 50 mg PO DAILY 90 days atorvastatin 20 mg PO BEDTIME 90 days blood pressure test kit-large (Advocate Blood Pressure Monitor kit) As directed buspirone 10 mg PO BID 90 days calcium carbonate-vitamin D3 500 mg-10 mcg (400 unit) (Oyster Shell Calcium-Vitamin D3) 1 tab PO DAILY 90 days carbamide peroxide 6.5% (Ear Drops (carbamide peroxide)) 5 drps otic (ears) DAILY 4 days citalopram 20 mg PO clopidogrel (Plavix) 75 mg PO DAILY 30 days cyclobenzaprine 5 mg PO Q8H PRN 5 days docusate sodium 100 mg PO BEDTIME erythromycin 0.5 inches ophthalmic (eye) BID erythromycin 1 appl ophthalmic (eye) QID 5 days fluticasone propionate 50 mcg/actuation (Flonase Allergy Relief) 2 sprays intranasal DAILY gabapentin 100 mg PO BEDTIME 30 days ibuprofen 600 mg PO Q6H PRN lidocaine 5% (Lidoderm) 1 patch topical DAILY PRN MDD remove after 12 hours losartan 25 mg PO DAILY 90 days metformin 500 mg PO BID 90 days methylcellulose (laxative) (Citrucel) 500 mg PO DAILY mirabegron ER (Myrbetriq) 25 mg PO DAILY 90 days nebulizers (AeroEclipse II Nebulizer) As directed ondansetron HCl 4 mg PO Q8-12H PRN pantoprazole 40 mg PO BID pioglitazone 15 mg PO DAILY 90 days sennosides (Natural Senna Laxative) 17.2 mg (2 x 8.6 mg) PO BEDTIME simethicone (Gas Relief (simethicone)) 125 mg PO BID-TID PRN walker As Directed Tobacco use date assessed: 11/09/24 Fall risk assessment: No Falls in past year Last assessed Fall Risk: 11/09/24 Dental Screening Dental Screen Date: 11/09/24 Did you have a dental visit in the last 12 months?: No Did you have a dental problem in the last 6 months where you did not have access to dental care?: No Was dental information given to patient?: Patient has dentist HPI HPI Comments History of Present Illness Details The patient is a 68-year-old female presenting with a follow-up for diabetes management and evaluation of right-side burning pain potentially linked to neuropathy. The diabetes is controlled with an A1c of 6.8. For years, she managed diabetes with Metformin, Actos, and adjustments in lifestyle. The patient also experiences chronic right-sided burning pain extending from the hip down to the ankle, suspected as irradiation from the lower back. Symptoms have persisted for an extended period; however, the intensity increased recently, particularly in the past week. The pain is associated with difficulty turning in bed due to severity and no recent falls reported. Prior Gabapentin usage for neuropathy was discontinued since 2020. The possibility of recurrence of sciatica has been considered. Allergy history includes penicillin, tramadol, morphine, and oxycodone, leading to careful medication consideration. Mild major depression with anxiety stable with citalopram. Hypertension well controlled. On statins for dyslipidemia. [facility] Medical History (Updated 11/09/24 @ 15:07 by Aure Horton MD) History of mammogram (~06/2024) PMB (postmenopausal bleeding) COVID-19 Impaired glucose regulation Dysuria Pelvic pain Burning with urination Fibroids Hiatal hernia Right shoulder pain Exposure to COVID-19 virus Mild depression TIA (transient ischemic attack) Asthma Back pain Abdominal pain Vaginal pruritus Vitamin D deficiency Left knee pain Left ankle pain Depression with anxiety Polyarthralgia Pure hypercholesterolemia Essential hypertension Surgical History History of tooth extraction History of colonoscopy History of cyst of breast History of hemicolectomy History of cholecystectomy History of appendectomy History of exploratory laparotomy Family History Father No problems noted. Mother Hypertension Stroke Diabetes Brother Leptospirosis Brother No problems noted. Family/Other FH: mental illness Son Hypertension Social History Household Members: Spouse Housing: Apartment Alcohol intake: never Patient Tobacco Use Status: Never used Tobacco e-Cigarette/Vaping Use: Never Used Second Hand Smoke Exposure: No service: No Current occupational status: disabled Sexual orientation: Straight/Heterosexual Gender identity: Female Cognitive needs: Yes Hearing needs: No Vision needs: Yes Female Reproductive History Menstrual Age of Menarche: 9 Questionnaire PHQ-9 Over the last 2 weeks, how often have you been bothered by any of the following problems? 1. Little interest or pleasure in doing things: not at all 2. Feeling down, depressed, or hopeless: not at all 3. Trouble falling or staying asleep, or sleeping too much: several days 4. Feeling tired or having little energy: not at all 5. Poor appetite or overeating: not at all 6. Feeling bad about yourself - or that you are a failure or have let yourself or your family down: not at all 7. Trouble concentrating on things, such as reading the newspaper or watching television: not at all 8. Moving or speaking so slowly that other people could have noticed. Or the opposite - being so fidgety or restless that you have been moving around a lot more than usual: not at all 9. Thoughts that you would be better off or of hurting yourself in some way: not at all Total score: 1 Depression Screening Interpretation: Negative Depression Screening Done: Yes 79754 - PHQ-9 Billing: Yes Source: Developed by Drs. Dagoberto Mercer, Néstor Grey and colleagues, with an educational zheng from [employer]. Thrive Questionnaire Date Thrive assessed: 11/09/24 I am a: Patient What is your living situation today?: I have a steady place to live Within the past 12 months, did the food you bought not last and you didn't have the money to get more?: Never true Within the past 12 months, did you worry whether your food would run out before you got money to buy more?: Never true Do you have trouble paying for medicines?: No Do you have trouble getting transportation to medical appointments?: No Do you have trouble paying your heating and electricity bill?: No Do you have trouble taking care of your child, family member or friend?: No Do you have trouble with day-to-day activities such as bathing, preparing meals, shopping, managing finances, etc.?: No Are you currently unemployed and looking for a job?: No Are you interested in more education?: No Please select the resources that you would like help with: None Currently or been in a relationship where the following occur: No concerns reported THRIVE Score: 0 AUDIT C Alcohol Use Questionnaire (AUDIT-C) 1. How often do you have a drink containing alcohol?: Never Total Score: 0 JESSICA-7 AMB Questionnaire JESSICA-7 Date JESSICA - 7 assessed: 11/09/24 Feeling nervous, anxious, or on edge: 0 = Not at all Not being able to stop or control worryin = Not at all Worrying too much about different things: 0 = Not at all Trouble relaxin = Not at all Being so restless that it is hard to sit still: 0 = Not at all Becoming easily annoyed or irritable: 0 = Not at all Feeling afraid as if something awful might happen: 0 = Not at all Total JESSICA-7 score (0-4 normal; 5-9 mild; 10-14 moderate; 15-21 severe): 0 Source: Developed by Drs. Dagoberto Mercer, Néstor Grey and colleagues, with an educational zheng from [employer]. JESSICA-7 Assessment Billing JESSICA-7 Assessment Tool: JESSICA-7 Assessment 92617 Review of Systems Const All systems reviewed & are unremarkable except as noted in HPI and below Card Denies chest pain at rest, Denies chest pain with activity, Denies edema, Denies irregular heart rhythm, Denies claudication, Denies dyspnea, Denies dyspnea on exertion, Denies orthopnea, Denies paroxysmal nocturnal dyspnea and Denies slow heart rate Resp Denies cough, Denies dyspnea and Denies dyspnea on exertion Physical exam (Primary Care) Vital Signs: Last Vital Signs BP 130/82 11/09/24 14:51 BMI result Body Mass Index 33.8 BMI Assessment/Plan discussion: High BMI High, discussed plan: lifestyle, weight reduction, dietary and physical activity Tobacco/Smoking Status: Tobacco use Status Tobacco use date assessed 11/09/24 11/09/24 14:54 Patient Tobacco Use Status Never used Tobacco 11/09/24 14:54 e-Cigarette/Vaping Use Never Used 11/09/24 14:54 PHQ-9: PHQ-9 Score PHQ-9: Total score 1 11/09/24 15:02 Depression Screening Interpretation: Negative Thrive Assessment: Date of Thrive Assessment Date Thrive assessed 11/09/24 11/09/24 14:54 Currently or been in a relationship where the following occur: No concerns reported Resp Effort & Inspection: normal respiratory effort Auscultation: clear to auscultation bilaterally Cardio Jugular venous distension: no JVD Rate: regular rate Rhythm: regular rhythm Heart sounds: S1 normal heart sound present and S2 normal heart sound present Back/Spine/Pelvis Thoracic/Lumbar Spine: straight leg raise negative bilaterally Extrem General: Yes full ROM Office Procedures Flu Questionnaire Does the patient have a severe egg allergy?: No Results AMB Hemoglobin A1c AMB Hemoglobin A1c 6.8 % Last Edit by DAVID Walton on 11/09/24 14:57 Immunizations Fluarix Triv [id number] (PF) 45 mcg (15 mcg x 3)/0.5 mL IM syringe Performing Provider: Aure Horton MD Performing Location[facility] [place] [place] [facility] Documented (not given) by: DAVID Walton on 11/09/24 14:56 Reason Not Given: Patient Refused Results Reviewed Results Reviewed: Laboratory Last Values Hgb A1c (Clinic) 6.8 % (4.0-6.0) H 11/09/24 14:55 Coding Level of Care Code Est Pt Level 4 (03534) Complex EM visit Add On G2211 Diagnoses Right hip pain M25.551 Right sciatic nerve pain M54.31 Type 2 diabetes mellitus without complication, without long-term current use of insulin E11.9 Diabetes mellitus type: type 2 Diabetes mellitus petroleum terminal plant operator insulin use: without petroleum terminal plant operator use Diabetes mellitus complication status: without complication Essential hypertension I10 Mild depression F32.0 Pure hypercholesterolemia E78.00 Additional Codes JESSICA-7 Assessment Billing - JESSICA-7 Assessment Tool: JESSICA-7 Assessment 05126 ([id number]) PHQ-9 - 57973 - PHQ-9 Billing: Yes ([id number]) Time Spent (min) 22 Assessment & Plan Assessment & Plan (1) Right hip pain: Code(s): M25.551 - Pain in right hip Category: Medical (2) Right sciatic nerve pain: Code(s): M54.31 - Sciatica, right side Category: Medical (3) Diabetes mellitus: Code(s): E11.9 - Type 2 diabetes mellitus without complications Category: Medical Qualifiers: Diabetes mellitus type: type 2 Diabetes mellitus skilled nursing insulin use: without petroleum terminal plant operator use Diabetes mellitus complication status: without complication Qualified Code(s): E11.9 - Type 2 diabetes mellitus without complications (4) Essential hypertension: Code(s): I10 - Essential (primary) hypertension Category: Medical (5) Mild depression: Code(s): F32.0 - Major depressive disorder, single episode, mild Category: Medical (6) Pure hypercholesterolemia: Code(s): E78.00 - Pure hypercholesterolemia, unspecified Category: Medical Plan - Resume Gabapentin for neuropathy management linked to sciatica. - Order imaging for lumbar spine and right hip to assess pain source. - Refer to pain management for further evaluation and management. - Regular monitoring and management of Type 2 Diabetes Mellitus, maintain current regimen with Metformin. - Monitor and manage Essential Hypertension, continue Losartan. - Maintain Hyperlipidemia management with Atorvastatin. Patient was informed and verbally consented to the use of an ambient scribe for clinic note documentation during this visit. I discussed the management of her Type 2 Diabetes Mellitus, emphasizing continuing with Metformin given the stable A1c value. We addressed the possible recurrence of neuropathy and sciatica, for which resuming Gabapentin was considered suitable. I explained the need for diagnostic imaging of the lumbar spine and right hip to investigate further the cause of her pain and discussed the importance of involving a silk screen painter for tailored therapy. I also informed her of the potential side effects of Gabapentin and the importance of ongoing monitoring of her hypertension and hyperlipidemia management. I reassured her about the imaging procedures, confirming that they are non-invasive and safe. Orders: Orders Influenza [id number] Immunization Today Z23 - Encounter for immunization XR lumbar spine 2-3V Today M54.31 - Sciatica, right side SARS-CoV2/FLU/RSV Today R09.89 - Other specified symptoms and signs involving the circulatory and respiratory systems AMB Hemoglobin A1c Today E11.9 - Type 2 diabetes mellitus without complications XR hip RT min 2V Today M25.551 - Pain in right hip Referrals Pain Management Referral M25.551 - Pain in right hip, M54.31 - Sciatica, right side Medications: New ibuprofen 800 mg PO Q8H PRN 90 tabs 0RF pain 30 days Refilled gabapentin 100 mg PO BEDTIME 30 caps 6RF 30 days Discontinued ibuprofen Discontinued Reason: Patient Completed Course 600 mg PO Q6H PRN 30 tabs 0RF fever or pain atenolol Discontinued Reason: Patient Completed Course 50 mg PO DAILY 90 days 90 tabs 2RF Patient Instructions: - Obtain prescribed Gabapentin from [facility] pharmacy. - Attend imaging appointment for lumbar spine and right hip as scheduled. - Follow up with pain management as referred. - Maintain current medication regimen for diabetes, hypertension, and cholesterol. - Return for further evaluation if symptoms worsen or new issues arise.
--- OUTSIDE RECORDS SUMMARY | 2024-11-09 17:02 | XMS_ITS | Clinical Summary ---
Author Organization [facility] Address [address] [place] [address] Care Team Providers Care Dimpling Machine Operator Name Role Phone Unavailable Primary Care Provider Unavailabl e Source Comments PLEASE NOTE, if this patient is a minor, it may be UNLAWFUL to discuss sensitive information that is contained in these records (such as FAMILY PLANNING, MENTAL HEALTH or SUBSTANCE ABUSE) with the minor patient's parent or other person without the patient's specific authorization.[facility] Medications amLODIPine (NORVASC) 5 mg tablet GEN SUJEY TABLETA POR V A ORAL TODOS LOS BRUNA 03/20/20 [address] tablet TOME SUJEY TABLETA TODOS LOS D 04/01/20 22 Active atenoloL (TENORMIN) 50 mg tablet Take 50 mg by mouth once daily 01/29/20 22 Active atorvastatin (LIPITOR) 20 mg tablet TOME SUJEY TABLETA POR V A ORAL AL ACOSTARSE 02/14/20 22 Active LAXATIVE, BISACODYL, 5 mg EC tablet TAKE 2 TABS AT NOON THE DAY BEFORE YOUR COLONOSCOPY 03/12/20 22 Active busPIRone (BUSPAR) 10 mg tablet TAKE ONE TABLET BY MOUTH two (2) times a day 01/29/20 22 Active cholestyramine, with sugar, (QUESTRAN) 4 gram powder ADMINISTER 4 GRAMS ONCE DAILY W/MEAL AVOID OTHER MEDS WITHIN 1HR BEFORE OR 4-6HR AFTER DOSE 03/12/20 22 Active citalopram (CELEXA) 20 mg tablet Take 20 mg by mouth once daily 01/29/20 22 Active clotrimazole-bet amethasone (LOTRISONE) 1-0.05 % cream APLIQUE AL TEVIN AFECTADA DOS VECES AL D A POR 7 D CUANDO SEA NECESARIO FOR ITCHING 03/12/20 22 Active gabapentin (NEURONTIN) 100 mg capsule TAKE 1 CAPSULE BY MOUTH ONCE DAILY AT BEDTIME 01/29/20 22 Active omeprazole (PRILOSEC) [address] capsule TOME SUJEY C PSULA TODOS LOS D 03/07/20 22 Active polyethylene glycol 3350 17 gram/dose powder TAKE DIRECTED BY GASTROENTEROLOGY DEPARTMENT AT [facility] 03/20/20 22 Active SENNA 8.6 mg tablet TOME SUJEY TABLETA POR V A ORAL AL ACOSTARSE CUANDO SEA NECESARIO FOR CONSTIPATION 03/12/20 22 Active ibuprofen 600 mg tabletIndication s:Chronic apical periodontitis Take 1 Tablet by mouth 4 (four) times daily as needed for moderate pain or mild pain 20 Tablet 05/22/20 22 Active clindamycin HCL (CLEOCIN) 150 mg capsuleIndicatio ns:Chronic apical periodontitis Take 1 Capsule by mouth 3 (three) times daily 21 Capsule 05/22/20 22 Active Active Problems No known active problems Social History Tobacco Use Types Packs/Day Years Used Date Smoking Tobacco: Never Smokeless Tobacco: Never Tobacco Cessation:Counseling Given: Not Answered Alcohol Use Standard Drinks/Week Comments Never 0 (1 standard drink = 0.6 oz pur e alcohol) Social Connections Answer Date Recorded Connectedness 0 07/01/2024 Financial Resource Strain Answer Date R ecorded Financial Resource Strain 0 2021 Stress Answer Date Recorded Stress 0 04/10/2022 Physical Activity Answer Date Recorded Physical Activity 0 04/10/2022 Food Insecurity Answer Date Recorded Food 0 07/14/2024 Transportation Needs Answer Date Record ed Transportation 0 04/10/2022 Housing Stability Answer Date Recorded Housing 0 04/10/2022 Safety and Environment Answer Date Leroy rded Safety 0 04/10/2022 Utilities Answer Date Recorded Utilities 0 04/10/2022 Employment Answer Date Recorded Stress 0 07/01/2024 Comments Unknown Sex and Gender Information Value Date Recorded Sex Assigned at Not on file Legal Sex Female 11:00 AM PDT Gender Identity Not on file Sexual Orientation Not on file Last Filed Vital Signs Vital Sign Reading Time Taken Comments Blood Pressure 178/89 09/19/2022 1:35 PM EST Pulse 77 09/19/2022 1:35 PM EST Temperature - - Respiratory Rate - - Oxygen Saturation - - Inhaled Oxygen Concentration - - Weight - - Height - - Body Mass Index - - Plan of Treatment Health Maintenance Due Date Last Done Comments Dental Perio Charting 1955 Diabetes Screening 1955 Hepatitis C Screening 1953 Lipid Screening 1953 Tobacco Screening 1955 Medicare Annual Wellness Visit 12/22/1971 Imm-DTaP/Tdap/Td (1 - Tdap) 1972 Breast Cancer Screening (Mammogram) 1993 CT Colonography 1998 Colonoscopy 1998 Colorectal Cancer Screening 1998 FIT/gFOBT 1998 Fecal DNA 1998 Flexible Sigmoidoscopy 1998 Imm-Zoster, Recombinant (1 of 2) 12/22/2003 Bone Density Screening 2018 Falls Prevention 2018 Imm-Pneumococcal 65+ (1 of 1 - PCV) 2018 Dental BW 04/12/2023 04/10/2022 Dental Examination 04/12/2023 04/10/2022 Dental Prophy 04/12/2023 04/10/2022 Hypertension Screening (#1) 09/19/2023 [id number]-14 (1 - 2023- season) 2024 Imm-Influenza (#1) 2024 Alcohol and Drug Screen 10/19/2024 Depression Annual Screen 10/19/2024 Dental FMX/Pano 05/24/2027 05/22/2022, 04/10/2022 Procedures Procedure Name Priority Date/Time Associated Diagnosis Comments PANORAMIC RADIOGRAPHIC IMAGE Routine 05/22/2022 9:00 AM EDT Chronic apical periodontitis INTRAORAL - COMP SERIES OF RADIOGRAPHIC IMAGES Routine 04/10/2022 3:00 PM EDT Dental caries noted on examination Full PROPHYLAXIS - ADULT Routine 04/10/2022 3:00 PM EDT Dental caries noted on examination COMP ORAL EVALUATION - NEW/ESTABLISHED PATIENT Routine 04/10/2022 3:00 PM EDT Dental caries noted on examination from Last 3 Months or Most Recently Relevant to Health Maintenance Insurance [place] Member Subscriber Plan / Payer (Ef fective 2022-Present) Name:Ximena Lund Relation to Subscriber:Self Name:Ximena Lund Payer ID:[id number] Group ID:Not on file Type:Medicaid Address: [place] [id number] HEALTH SAFETY NET DENTAL - DENTAL HEALTH SAFETY NET DENTAL - DENTAL
--- OUTSIDE RECORDS SUMMARY | 2024-11-09 17:02 | XMS_ITS | Clinical Summary ---
Author Organization [facility] Address [address] [place] [address] Care Team Providers Care Bending Press Operator Name Role Phone Unavailable Primary Care Provider Unavailabl e Social History Tobacco Use Types Packs/Day Years Used Date Smoking Tobacco: Never Assessed Sex and Gender Information Value Date Recorded Sex Assigned at Not on file Gender Identity Not on file Sexual Orientation Not on file Plan of Treatment Health Maintenance Due Date Last Done Comments Breast Cancer Screening 1953 DTaP,Tdap,and Td Vaccines (1 - Tdap) 1972 Zoster Vaccines (1 of 2) 12/22/2003 Pneumococcal Vaccine: 65+ Ye ars (1 of 1 - PCV) 2018 Colorectal Cancer Screening: Colonoscopy 11/13/2023 Depression Screening 11/13/2023 Falls Risk Assessment 11/13/2023 Hepatitis C Screening 11/13/2023 Osteoporosis Screening (Bone Density Screening) 11/13/2023 Social Influencers of Health Screening 11/13/2023 COVID-19 Vaccine ( - 2023-2 5 season) 2024 Influenza Vaccine (#1) 2024 RSV Immunization Patients 60 + Years Old (1 - 1-dose 75+ series) 2028 HIB Vaccines Aged Out No longer eligi ble based on patient's age to complete this topic HPV Vaccines Aged Out No longer eligi ble based on patient's age to complete this topic Hepatitis A Vaccines Aged Out No long er eligible based on patient's age to complete this topic Hepatitis B Vaccines Aged Out No long er eligible based on patient's age to complete this topic IPV Vaccines Aged Out No longer eligi ble based on patient's age to complete this topic MMR Vaccines Aged Out No longer eligi ble based on patient's age to complete this topic Meningococcal ACWY Vaccine Aged Out N o longer eligible based on patient's age to complete this topic RSV Immunization Patients Un yisel 20 months Aged Out No longer eligible b ased on patient's age to complete this topic Varicella Vaccines Aged Out No longer eligible based on patient's age to complete this topic
--- OUTSIDE RECORDS SUMMARY | 2024-11-09 17:03 | XMS_ITS | Data Portability ---
Author Organization [place] - [facility], [facility] [place] Address [address] [place] [phone] Care Team Providers Care Cardiac Nurse Specialist Name Role Phone CRUZ GONZALEZ Primary Care Provider Assessment No assessment recorded. Plan of Treatment Reminders Order Date Submit Date Provider Last Modified By Organization Details Last Modified Time Details Appointments Establish ed 15 2024 01:15P M ILEANA KULKARNI MD Not available Not available Not available Lab None recorded. Referral None recorded. Procedures None recorded. Surgeries None recorded. Imaging None recorded. Medication Orders None recorded. Patient TargetsNo targets recorded. Patient InstructionsNo instructions recorded. Reason for Referral None Reported. Problems Name Problem SNOMED Code Status Onset Date Resolution Date Notes Provider Name and Address Organization Details Recorded Time Chronic hoarseness 0194755624608 Active 2023 ILEANA KULKARNI MD [address] [place] [address], [phone], [facility] 13:27:44 Gastroesoph ageal reflux disease without esophagitis [id number] Active 2023 ILEANA KULKARNI MD [address] [place] [address], [phone], [facility] 13:30:14 Problem Notes None recorded. Procedures Surgical History Date Name Laterality Status Provider Name and Address Organization Details Recorded Time 05/20/20 24 Fiberoptic Laryngoscopy (Comprehensive) completed ILEANA KULKARNI MD [address] [place] [address], [phone], [facility] 05/27/2024 13:27:36 Imaging Results None recorded. Procedure Notes None recorded. Medical Equipment None Reported. Medications Name Sig Start Date Stop Date Status Note LastModified by Organization Details LastModified Time pioglitazone 15 mg tablet TAKE 1 TABLET BY MOUTH EVERY DAY active Not Available Not Available No t Available metformin 500 mg tablet TAKE 1 TABLET BY MOUTH TWICE A DAY active Not Available Not Available No t Available atorvastatin 20 mg tablet TAKE 1 TABLET BY MOUTH EVERYDAY AT BEDTIME active Not Available Not Available No t Available senna 8.6 mg tablet TAKE 2 TABLETS BY MOUTH AT BEDTIME FOR CONSTIPATIO N active Not Available Not Available No t Available amlodipine 5 mg tablet TAKE 1 TABLET BY MOUTH EVERY DAY active Not Available Not Available No t Available aspirin 81 mg tablet,delay ed release TAKE 1 TABLET BY MOUTH EVERY DAY active Not Available Not Available No t Available erythromycin 5 mg/gram (0.5 %) eye ointment APPLY 0.5 INCH INTO THE EYE(S) 2 TIMES A DAY DIRECTED active Not Available Not Available No t Available buspirone 10 mg tablet TAKE 1 TABLET BY MOUTH TWICE A DAY active Not Available Not Available No t Available losartan 25 mg tablet TAKE 1 TABLET BY MOUTH EVERY DAY active Not Available Not Available No t Available docusate sodium 100 mg capsule TAKE 1 CAPSULE BY MOUTH AT BEDTIME active Not Available Not Available No t Available omeprazole 20 mg capsule,dana yed release TAKE 1 CAPSULE BY MOUTH EVERY DAY active Not Available Not Available No t Available estradiol 0.01% (0.1 mg/gram) vaginal cream INSERT 1 GM VAGINALLY DAILY AT BEDTIME,X14 DAYS, THEN TWICE A WEEK FOR MAINTENANCE active Not Available Not Available Not Available atenolol 50 mg tablet TAKE 1 TABLET BY MOUTH EVERY DAY active Not Available Not Available No t Available Murine Ear 6.5 % drops PLACE 5 DROPS IN AFFECTED EAR(S) DAILY FOR 4 DAYS active Not Available Not Available No t Available nitrofuranto in monohydrate/ macrocrystal s 100 mg capsule TAKE 1 CAPSULE BY MOUTH 2 TIMES A DAY FOR UTI FOR 5 DAYS MUST ADMINISTER WITH A MEAL/FOOD active Not Available Not Available No t Available Calcium 500 With D 500 mg-10 mcg (400 unit) tablet TAKE 1 TABLET BY MOUTH EVERY DAY active Not Available Not Available No t Available Myrbetriq 25 mg tablet,exten ded release TAKE 1 TABLET BY MOUTH EVERY DAY FOR 30 DAYS active Not Available Not Available No t Available Vitals Date Recorded Body height Body mass index (BMI) Body weight Provider Name and Address Organization Details Last Updated DateTime 05/20/2024 157.48 cm 33.6 kg/m2 16658.2 g Toyin Cartagena [facility] 05/20/2024 13:57:06 Social History None recorded. Functional Status None recorded. Mental Status None recorded. Family History Nothing Reported. Medical History Condition Response Hypertension Y Asthma Y Gynecological HistoryNo gynecological history recorded. Obstetrics History GPAL:G 0 P 0 0 0 0 Past Encounters Encounter ID Performer Location Encounter Start Date Encounter Closed Date Diagnosis/Indication Diagnosis SNOMED-CT Code Diagnosis ICD10 Code Diagnosis Note [id number] ILEANA KULKARNI MD [facility] [address] [place] [address] 05/20/2024 13:04:07 05/20/2024 16:05:43 Chronic hoarseness 0902878157 105 R49.0 68-year-ol d female with a history of diabetes, reflux and hypertensi on presents today for evaluation of hoarseness without any significan t sore throat or dysphagia. On exam, cords are thin. There are no lesions noted. There is incidental ly noticed a small mucosal cyst on the right tonsil.We discussed that symptoms are likely multifacto rial related to allergies, presbylary nges.We reviewed voice hygiene. Suggest reassessme nt in 6 months to ensure exam is stable. Could consider voice therapy in the future. Gastroesop hageal reflux disease without esophagitis 078980085 K21.9 Health Concerns Section Related Observation LastModified by Organization Detai ls LastModified Time None Recorded Concern Status LastModified by Organization Details LastModified Time None Recorded Advance Directives Directive None Recorded Payers Encounter Date Sequence Insurance Name Policy Number Policy Humphrey Covered Member ID Humphrey Member ID Guarantor Name 05/20/2024 1 [employer] - DOS ON OR AFTER 2023 - PENITENTIARY OPTIONS (MEDICARE REPLACEMENT/AD VANTAGE - HMO) Reji Cano [id number] Reji Cano Notes Date Note Type Note Provider Name and Address Organization Details Recorded Time 05/20/2024 text/html 68 yo F presents today for hoarseness. Has reflux on omeprazole. Has DM. Has asthma. Voice today is hoarse. Mild sore throat. No trouble swallowing. No otalgia. ILEANA KULKARNI MD [address] [place] [address], [place], [phone], [place] [facility] 05/27/2024 13:31:24 OBGyn Episode No OBEpisode recorded.
--- OUTSIDE RECORDS SUMMARY | 2024-11-09 17:03 | XMS_ITS | Data Portability ---
Author Organization [facility] Address [address] [place] [phone] Care Team Providers Care Casino Attendant Name Role Phone [facility] Referring Provider Assessment Encounter Date Assessment Date Assessment LastModified by Organization Details LastModified Time 08/26/2023 08/26/2023 I provided real -time medical direction via phone for this encounter, and was available for additional phone based assistance as needed. I have reviewed and agree with the Assessment and Plan as documented by the Motor Generator Set Operator 67-year-old female is seen for several days of cough productive clear sputum. No fevers. No shortness of breath. No chest pain. Covid uicwx-is-xaln testing negative. Given symptoms greater than five days she is outside the window of influenza or Covid treatment. Will trial symptom medic management with Tessalon pearls. To follow up with care team. Red flags for ED presentation discussed. pallfather Not available 10/08/2023 12:32:35 Plan of Treatment Reminders Order Date Submit Date Provider Last Modified By Organization Details Last Modified Time Details Appointments None recorded. Lab None recorded. Referral None recorded. Procedures None recorded. Surgeries None recorded. Imaging None recorded. Medication Orders Tessalon Perles 100 mg capsule 2022 023 [id number], [address] [place], [address], 3 11:33:30 Patient TargetsNo targets recorded. Patient InstructionsNo instructions recorded. Reason for Referral None Reported. Medical Equipment None Reported. Allergies Allergen ID Allergen Name Allergen Category Reaction Reaction Severity Criticality Documentation Date Start Date Code Code System Note Provider Name and Address Organization Details Recorded Time 0765 morphine medicatio n Not available Not available Not available 08/16/2024 7052 RxNorm Not Available [facility] - production 4 03:54:51 9364 Product containin g penicilli n and antibioti c (product) medicatio n Not available Not available Not available 08/16/2024 83434 05 SNOMED Not Available [facility] - production 03:54:51 Medications Name Sig Start Date Stop Date Status Note LastModified by Organization Details LastModified Time metformin 500 mg tablet TAKE 1 TABLET BY MOUTH TWICE A DAY active Not Available Not Available No t Available cefuroxime axetil 250 mg tablet TAKE 1 TABLET BY MOUTH TWICE A DAY FOR 7 DAYS active Not Available Not Available No t Available atorvastatin 20 mg tablet TAKE 1 TABLET BY MOUTH EVERYDAY AT BEDTIME active Not Available Not Available No t Available albuterol sulfate 2.5 mg/3 mL (0.083 %) solution for nebulization USE 1 VIAL VIA NEBULIZER EVERY 4-6 HOURS NEEDED FOR WHEEZE/SHOR TNESS OF BREATH active Not Available Not Available No t Available senna 8.6 mg tablet TOME SUJEY TABLETA POR V A ORAL AL ACOSTARSE CUANDO SEA NECESARIO FOR CONSTIPATIO N active Not Available Not Available No t Available amlodipine 5 mg tablet TOME SUJEY TABLETA TODOS LOS D active Not Available Not Available No t Available aspirin 81 mg tablet,delay ed release TOME SUJEY TABLETA TODOS LOS D active Not Available Not Available No t Available Tessalon Perles 100 mg capsule Take 1 capsule every 8 hours by oral route as needed. 2022 active Not Available Not Available Not Avai lable phenazopyrid ine 100 mg tablet TOME SUJEY TABLETA POR V A ORAL VIVIAN VECES AL D A CUANDO SEA NECESARIO PARA EL DOLOR active Not Available Not Available No t Available buspirone 10 mg tablet TAKE 1 TABLET BY MOUTH TWICE A DAY active Not Available Not Available No t Available docusate sodium 100 mg capsule TOME SUJEY C PSULA TODOS LOS D AL ACOSTARSE active Not Available Not Available No t Available omeprazole 20 mg capsule,dana yed release TOME SUJEY C PSULA TODOS LOS D active Not Available Not Available No t Available ibuprofen 600 mg tablet TOME SUJEY TABLETA CADA SEIS HORAS CUANDO SEA NECESARIO PARA EL DOLOR OR FEVER active Not Available Not Available No t Available levofloxacin 500 mg tablet TOME SUJEY TABLETA TODOS LOS D active Not Available Not Available No t Available fluticasone propionate 50 mcg/actuatio n nasal spray,suspen clinton SPRAY 2 SPRAYS INTRASANALL Y DAILY active Not Available Not Available No t Available atenolol 50 mg tablet TOME SUJEY TABLETA TODOS LOS D active Not Available Not Available No t Available Ventolin HFA 90 mcg/actuatio n aerosol inhaler INHALE 2 PUFFS EVERY 4-6 HOURS NEEDED FOR SHORTNESS OF BREATHER OR WHEEZING active Not Available Not Available Not Available Calcium 500 With D 500 mg-10 mcg (400 unit) tablet TOME SUJEY TABLETA TODOS LOS D active Not Available Not Available No t Available Gavilax 17 gram/dose oral powder MIX AND DRINK 17 GRAMS (1 CAP) BY MOUTH DAILY active Not Available Not Available Not Available Vitals Date Recorded Heart rate Respiratory rate Oxygen saturation Oxygen saturation in Arterial blood by Pulse oximetry Body temperature Systolic blood pressure Diastolic blood pressure Provider Name and Address Organization Details Last Updated DateTime 3 70 /min 18 /min 99 % 99 % 98.9 [degF] 142 mm[Hg] 98 mm[Hg] Not Available [facility] - production 3 11:31:34 Social History None recorded. Functional Status None recorded. Mental Status None recorded. Family History Nothing Reported. Medical History No medical history recorded. Gynecological HistoryNo gynecological history recorded. Obstetrics History GPAL:G 0 P 0 0 0 0 Past Encounters Encounter ID Performer Location Encounter Start Date Encounter Closed Date Diagnosis/Indication Diagnosis SNOMED-CT Code Diagnosis ICD10 Code Diagnosis Note [id number] Noam Lua MD [facility] [address] [place] [phone] 08/26/2023 11:31:29 10/24/2023 16:07:44 Cough 20481680 R05.9 Health Concerns Section Related Observation LastModified by Organization Detai ls LastModified Time None Recorded Concern Status LastModified by Organization Details LastModified Time None Recorded Advance Directives Directive None Recorded Payers Encounter Date Sequence Insurance Name Policy Number Policy Humphrey Covered Member ID Humphrey Member ID Guarantor Name 08/26/2023 1 [facility] - DOS ON OR AFTER 2023 - DUAL ELIGIBLE - [employer] OPTIONS AND ONE CARE (MEDICARE REPLACEMENT/ADV ANTAGE - HMO) Ximena Cano [id number] Ximena Cano Notes Date Note Type Note Provider Name and Address Organization Details Recorded Time 08/26/2023 text/html [facility] Nursing Assessment: Reason For Request: severe cough, pain & pressure on her back>began with sore throat and severe headache, which a persistent cough formed shortly after>states that the sore throat and severe headache has alleviated and the chief complaint is the cough and the back pain>DENIES fever/chills>no appetite>Robitussi n for cough taken with severe congestion, lots of clear phelgm. Chief Complaints: Pain, Cough, URI Allergies: Morphine, Penicillin Comments: Member reports feeling unwell x 2 weeks - Cough - congestion with pressure - Sore throat and VICENTE - Denies Fever/Chills - Decrease PO intake - Robitussin for cough taken with severe congestion, lots of clear phlegm. Phil WARD .................. .................. .................. .................. .................. .................. .................. ............... Motor Generator Set Operator Note From Sctoty Rose: Patient reports eight days of productive cough with clear phlegm. Patient denies difficulty breathing, but states that the coughing is causing her back to hurt. Denies chest pain or changes in vision. Breath sounds clear in all mazariegos. [facility] [place] Tessalon pearls at patient? s pharmacy of choice was made. Red flags covered with patient regarding symptoms and medication. POC Covid swab negative Motor Generator Set Operator Allergies: Morphine, Penicillin .................. .................. .................. .................. .................. .................. .................. ............... Disposition: Fulfilled Noam Lua MD [address] [facility],[address], [place], [address], [facility] - [employer] 10/08/2023 12:32:44 OBGyn Episode No OBEpisode recorded.
== END 2024-11-09 15:15 | disposition home or self-care (01) ==
PROVIDERS: PCP Internal Medicine; Visit Provider Internal Medicine
DX: M25.551 Pain in right hip (principal); M54.31 Sciatica, right side; E11.9 Type 2 diabetes mellitus without complications; I10 Essential (primary) hypertension; F32.0 Major depressive disorder, single episode, mild; E78.00 Pure hypercholesterolemia, unspecified; Z23 Encounter for immunization

== ENCOUNTER 2024-11-21 13:58 | Outpatient (AMB) | payer OTHER, SELFPAY ==
--- NOTE | 2024-11-21 14:04 | MHC.OFFVIS ---
Vital Signs 11/21/24 14:05 Height 5 ft 2 in Weight 183 lb BMI 33.5 BP 158/68 H Blood Pressure Location Lt brachial Position Sitting Respiration 16 Pulse 80 Pulse Source Pulse Oximeter Pulse Oximetry (%) 99 Oxygen Delivery Method Room Air Intake Visit Reasons: Pain in right hip Dependency Program Director Required: Yes Dependency Program Director Services: Dependency Program Director Present Dependency Program Director Name: Diana Allergies Penicillins Allergy (Intermediate, Verified 11/21/24 14:07) DIZZINESS, RASH tramadol [TRAMADOL] Allergy (Intermediate, Verified 11/21/24 14:07) NAUSEA & VOMITING egg [Egg] Adverse Reaction (Intermediate, Verified 11/21/24 14:07) NAUSEA & VOMITING morphine Adverse Reaction (Intermediate, Verified 11/21/24 14:07) Chest Pain oxycodone Adverse Reaction (Verified 11/21/24 14:07) Dizziness FANY DRINK Allergy (Intermediate, Uncoded 11/21/24 14:07) NAUSEA & VOMITING Medication List - Last Reconciled 11/21/24 by Loreto Doyle LPN acetaminophen ER (Tylenol Arthritis Pain) 650 mg PO Q8H PRN albuterol sulfate 2.5 mg (3 mL) inhalation Q4-6H PRN 30 days alcohol swabs pad topical amlodipine 5 mg PO DAILY aspirin 81 mg PO DAILY 90 days atorvastatin 20 mg PO BEDTIME 90 days blood pressure test kit-large ([facility] Blood Pressure Monitor kit) As directed buspirone 10 mg PO BID 90 days calcium carbonate-vitamin D3 500 mg-10 mcg (400 unit) (Oyster Shell Calcium-Vitamin D3) 1 tab PO DAILY 90 days carbamide peroxide 6.5% (Ear Drops (carbamide peroxide)) 5 drps otic (ears) DAILY 4 days citalopram 20 mg PO clopidogrel (Plavix) 75 mg PO DAILY 30 days cyclobenzaprine 5 mg PO Q8H PRN 5 days docusate sodium 100 mg PO BEDTIME fluticasone propionate 50 mcg/actuation (Flonase Allergy Relief) 2 sprays intranasal DAILY gabapentin 100 mg PO BEDTIME 30 days ibuprofen 800 mg PO Q8H PRN 30 days lidocaine 5% (Lidoderm) 1 patch topical DAILY PRN MDD remove after 12 hours losartan 25 mg PO DAILY 90 days metformin 500 mg PO BID 90 days methylcellulose (laxative) (Citrucel) 500 mg PO DAILY mirabegron ER (Myrbetriq) 25 mg PO DAILY 90 days nebulizers (AeroEclipse II Nebulizer) As directed ondansetron HCl 4 mg PO Q8-12H PRN pantoprazole 40 mg PO BID pioglitazone 15 mg PO DAILY 90 days sennosides (Natural Senna Laxative) 17.2 mg (2 x 8.6 mg) PO BEDTIME simethicone (Gas Relief (simethicone)) 125 mg PO BID-TID PRN walker As Directed HPI Comments Details: Ximena is very pleasant 68 years old female who presents in my office with complains on pain across the lower back with radiation into the right lower extremity to the level of the cough but not below that level. She reports that her pain is most severe when she is lying down and walking for long period of time. She reports that her pain associated with burning sensation in the lower extremity. She reports that the pain started about 1 year ago however got exacerbated to very severe level about 1 month ago. She reports that she can not sleep normally can not move properly can not walk all of this aggravate her pain. She took Tylenol and Tylenol significantly alleviated her pain. She tried lidocaine patches with no help. She never had physical therapy for her pain. She reports that pain is aggravated by coughing and sneezing. Her past medical history significant for hypertension, diabetes, asthma, elevated cholesterol. She also has osteoporosis. Her past surgical history significant for colon resection and appendicitis. Her social history she is retired individual she denies drinking alcohol denies smoking cigarettes denies recreational drugs. [facility] Medical History History of mammogram (~06/2024) PMB (postmenopausal bleeding) COVID-19 Impaired glucose regulation Dysuria Pelvic pain Burning with urination Fibroids Hiatal hernia Right shoulder pain Exposure to COVID-19 virus Mild depression TIA (transient ischemic attack) Asthma Back pain Abdominal pain Vaginal pruritus Vitamin D deficiency Left knee pain Left ankle pain Depression with anxiety Polyarthralgia Pure hypercholesterolemia Essential hypertension Surgical History History of tooth extraction History of colonoscopy History of cyst of breast History of hemicolectomy History of cholecystectomy History of appendectomy History of exploratory laparotomy Family History Father No problems noted. Mother Hypertension Stroke Diabetes Brother Leptospirosis Brother No problems noted. Family/Other FH: mental illness Son Hypertension Social History Household Members: Spouse Housing: Apartment Alcohol intake: never Patient Tobacco Use Status: Never used Tobacco e-Cigarette/Vaping Use: Never Used Second Hand Smoke Exposure: No service: No Current occupational status: disabled Sexual orientation: Straight/Heterosexual Gender identity: Female Cognitive needs: Yes Hearing needs: No Vision needs: Yes Female Reproductive History Menstrual Age of Menarche: 9 Review of Systems Const All systems reviewed & are unremarkable except as noted in HPI and below ENT Reports Normal hearing present Neuro Reports Normal hearing present, Denies Abnormal speech present, Denies confusion and Denies Sensory deficit (Neuro) Psych Denies confusion Physical Exam Vital Signs: Last Vital Signs Pulse 80 11/21/24 14:05 Resp 16 11/21/24 14:05 BP 158/68 H 11/21/24 14:05 Pulse Ox 99 11/21/24 14:05 Oxygen Delivery Method Room Air 11/21/24 14:05 BMI result Body Mass Index 33.5 Const General: no acute distress; No confusion Orientation/consciousness: patient oriented x3 and No confusion Eyes General: appearance normal, both eyes and all related structures Pupils: Equal, round and reactive pupils present EOM: EOMs intact bilaterally Neck Neck: Yes full ROM Chest Chest palpation & inspection: normal inspection of the chest Resp Effort & Inspection: normal respiratory effort, able to speak in complete sentences, normal respiratory pattern, no audible wheezes and no cough Cardio Jugular venous distension: no JVD GI Inspection: Yes normal to inspection Back/Spine/Pelvis Other: Bending forward and bending backwards equally aggravate her pain however bending forward seem to aggravate her pain more than bending backwards. SLR is negative bilaterally. Lassegue test is negative bilaterally. Niels test is positive on the right, Gaenslen test is positive on the right, pelvic compression and pelvic distraction tests are positive on the right. Lateral rotation of the right hip and medial rotation of the right hip do not aggravate her pain. No tenderness on palpation in spinal or paraspinal region of the entire lumbar spine or sacral bone. Neuro General: patient oriented x3, gait normal and No confusion Cranial nerves: Yes CN's II-XII intact bilaterally, Yes Equal, round and reactive pupils present, Yes Normal hearing present and Yes Ability to bilaterally elevate shoulders present Speech: No Abnormal speech present Gait exam (Neuro): Normal gait present Motor exam (neuro): 5/5 motor strength present throughout Sensory Exam: No Sensory deficit (Neuro) Extrem General: No pedal edema Psych Speech and movement: Normal speech and movement present Affect: normal affect Attitude: cooperative Thought process: Normal thought process present Thought content: Normal thought content present Insight: Good insight present (Psych) Judgement: Good judgement present (Psych) Results Reviewed Results Reviewed: Right hip x-ray Findings: No acute fracture or dislocation is identified. Mild marginal osteophyte formation is seen at the acetabular roof. The femoroacetabular joint space is preserved. Several pelvic calcifications are noted, likely representing phleboliths. Lumbar spine x-ray Comparison: None Findings: Mild levoscoliosis apex L3 . Slight degenerative grade 1 retrolisthesis of the L3. Otherwise normal anterior-posterior alignment. Normal vertebral body height. No acute compression fracture. Generalized disc space narrowing all levels slightly greater at L2-3, L3-4 and L5-S1. 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 Pedicles intact. No destructive lesion apparent. Intact SI joints. Bowel surgery right lateral abdomen and cholecystectomy. Nonobstructive bowel gas pattern. No opaque calculi. Impression: Generalized degenerative changes as noted. No acute bone abnormality. Assessment & Plan Assessment & Plan (1) Low back pain: Code(s): M54.50 - Low back pain, unspecified Category: Medical (2) Sacroiliitis: Code(s): M46.1 - Sacroiliitis, not elsewhere classified Category: Medical (3) Sacroiliac joint dysfunction of right side: Code(s): M53.3 - Sacrococcygeal disorders, not elsewhere classified Category: Medical (4) Chronic pain syndrome: Code(s): G89.4 - Chronic pain syndrome Category: Medical Plan On physical exam this patient exhibits signs of sacroiliitis. Minimal changes on x-ray of the hip demonstrate acetabular spurring under roof. However on physical exam the hip pathology is not that prominent see above. X-ray of the lumbar spine demonstrates widespread facet arthropathy however on physical exam there is no indication that patient pain coming from spondylosis. Under impression that patient had sacroiliitis and sacroiliac joint in function I offered the patient to go for diagnostic sacroiliac joint injection. Patient agreed to go for the procedure. I will schedule her for the procedure without sedation. Coding Level of Care Code New Pt Level 3 (15557) Diagnoses Low back pain M54.50 Sacroiliitis M46.1 Sacroiliac joint dysfunction of right side M53.3 Chronic pain syndrome G89.4
[2024-11-21 14:05] VITALS: BP 158/68; PULSE 80; RESP 16; O2SAT 99; BMI 33.5
--- OUTSIDE RECORDS SUMMARY | 2024-11-21 15:32 | XMS_ITS | Data Portability ---
Author Organization [employer] [place] Address [address] [place] [phone] Care Team Providers Care Line Haul Owner Operator Name Role Phone [facility] Referring Provider Assessment Encounter Date Assessment Date Assessment LastModified by Organization Details LastModified Time 08/26/2023 08/26/2023 I provided real -time medical direction via phone for this encounter, and was available for additional phone based assistance as needed. I have reviewed and agree with the Assessment and Plan as documented by the Director Of Web Marketing 67-year-old female is seen for several days of cough productive clear sputum. No fevers. No shortness of breath. No chest pain. Covid vredm-pi-yexv testing negative. Given symptoms greater than five [...] Tessalon Perles 100 mg capsule 2022 023 [facility] #[id number], [address] [place], [address], 3 11:33:30 Patient TargetsNo targets recorded. Patient InstructionsNo instructions recorded. Reason for Referral None Reported. Medical Equipment None Reported. Allergies Allergen ID Allergen Name Allergen Category Reaction Reaction Severity Criticality Documentation Date Start Date Code Code System Note Provider Name and Address Organization Details Recorded Time 0742 morphine medicatio n Not available Not available Not available 08/16/2024 7052 RxNorm Not Available [facility] - production 4 03:54:51 9364 Product containin g penicilli n and antibioti c (product) medicatio n Not available Not available Not available 08/16/2024 88017 05 SNOMED Not Available [facility] - production [...] SNOMED-CT Code Diagnosis ICD10 Code Diagnosis Note [id number] Noam Lua MD Main - [facility] [address] [place] [phone] 08/26/2023 11:31:29 10/24/2023 16:07:44 Cough 30515959 R05.9 Health Concerns Section Related Observation LastModified by Organization Detai ls LastModified Time None Recorded Concern Status LastModified by Organization Details LastModified Time None Recorded Advance Directives Directive None Recorded Payers Encounter Date Sequence Insurance Name Policy Number Policy Humphrey Covered Member ID Humphrey Member ID Guarantor Name 08/26/2023 1 [facility] - DOS ON OR AFTER 2023 - DUAL ELIGIBLE - JAIL OPTIONS AND ONE CARE (MEDICARE REPLACEMENT/ADV ANTAGE - HMO) Ximena Cano [id number] Ximena Cano Notes Date Note Type Note [...] .................. .................. .................. .................. .................. .................. ............... Director Of Web Marketing Note From Scotty Rose: Patient reports eight days of productive cough with clear phlegm. Patient denies difficulty breathing, but states that the coughing is causing her back to hurt. Denies chest pain or changes in vision. Breath sounds clear in all mazariegos. [facility] contacted: prescription for Tessalon pearls at patient? s pharmacy of choice was made. Red flags covered with patient regarding symptoms and medication. POC Covid swab negative Director Of Web Marketing Allergies: Morphine, Penicillin .................. .................. .................. .................. .................. .................. .................. ............... Disposition: Fulfilled Noam Lua MD [address] [facility],[address], [place], [address], [facility] 10/08/2023 12:32:44 OBGyn Episode No OBEpisode recorded.
--- OUTSIDE RECORDS SUMMARY | 2024-11-21 15:32 | XMS_ITS | Clinical Summary ---
Author Organization [facility] Address [address] [place] [address] Care Team Providers Care Mortgage Specialist Name Role Phone Unavailable Primary Care Provider [...]
--- OUTSIDE RECORDS SUMMARY | 2024-11-21 15:32 | XMS_ITS | Clinical Summary ---
Author Organization [facility] Address [address] [place] [address] Care Team Providers Care Jacquard Loom Card Changer Name Role Phone Unavailable Primary Care Provider [...] powder TAKE DIRECTED BY GASTROENTEROLOGY DEPARTMENT AT [facility] 03/20/20 22 Active SENNA 8.6 mg tablet [...] 1998 Fecal DNA 1998 Flexible Sigmoidoscopy 1998 Imm-Pneumococcal 65+ (1 of 1 - PCV) 12/22/2003 Imm-Zoster, Recombinant (1 of 2) 12/22/2003 Bone Density Screening 2018 Falls Prevention 2018 Dental BW 04/12/2023 04/10/2022 Dental Examination 04/12/2023 04/10/2022 Dental Prophy 04/12/2023 04/10/2022 Hypertension Screening (#1) 09/19/2023 [id number] (1 - 2023- season) 2024 Imm-Influenza (#1) [...] Most Recently Relevant to Health Maintenance Insurance [place] Member Subscriber Plan / Payer (Ef fective 2022-Present) Name:Ximena Lund Relation to Subscriber:Self Name:Ximena Lund Payer ID:[id number] Group ID:Not on file Type:Medicaid Address: [place] [id number] HEALTH SAFETY NET DENTAL - DENTAL HEALTH SAFETY NET DENTAL - DENTAL
--- OUTSIDE RECORDS SUMMARY | 2024-11-21 15:32 | XMS_ITS | Data Portability ---
Author Organization [place] [facility], [facility] Address [address] [place] [phone] Care Team Providers Care Chronic Condition Nurse Name Role Phone CRUZ GONZALEZ Primary Care [...] Address Organization Details Recorded Time Chronic hoarseness [id number] Active 2023 ILEANA KULKARNI MD [address] [place] [address], [phone], [facility] 13:27:44 Gastroesoph ageal reflux disease without esophagitis 874636601 Active 2023 ILEANA KULKARNI MD [address] [place] [address], [phone], [facility] 13:30:14 Problem Notes None recorded. Procedures Surgical History Date Name Laterality Status Provider Name and Address Organization Details Recorded Time 05/20/20 24 Fiberoptic Laryngoscopy (Comprehensive) completed ILEANA KLUKARNI MD [address] [place] [address], [phone], [facility] - [facility] 05/27/2024 13:27:36 Imaging Results None recorded. [...] Available Not Available No t Available ibuprofen 800 mg tablet active Not Available Not Available Not Available senna 8.6 mg tablet TAKE 2 TABLETS BY MOUTH AT BEDTIME FOR CONSTIPATIO N active Not Available Not Available No t Available prednisone 20 mg tablet TAKE 3 TABLETS BY MOUTH EVERY DAY FOR 2 WEEKS active Not Available Not Available No t Available clopidogrel 75 mg tablet TAKE 1 TABLET BY MOUTH EVERY DAY FOR 30 DAYS active Not Available Not Available No t Available amlodipine 5 mg tablet TAKE 1 TABLET BY MOUTH EVERY DAY active Not Available Not Available No t Available aspirin 81 mg tablet,delay ed release TAKE 1 TABLET BY MOUTH EVERY DAY active Not Available Not Available No t Available acetaminophe n 500 mg tablet TAKE 1 TABLET ORALLY EVERY 6 HOURS NEEDED FOR FEVER OR PAIN active Not Available Not Available No t Available pantoprazole 40 mg tablet,delay ed release TAKE 1 TABLET BY MOUTH TWICE A DAY active Not Available Not Available No t Available erythromycin 5 mg/gram (0.5 %) eye ointment APPLY 0.5 INCH INTO THE EYE(S) 2 TIMES A DAY DIRECTED active Not Available Not Available No t Available buspirone 10 mg tablet TAKE 1 TABLET BY MOUTH TWICE A DAY active Not Available Not Available No t Available lidocaine 5 % topical patch PLEASE SEE ATTACHED FOR DETAILED DIRECTIONS active Not Available Not Available N ot Available losartan 25 mg tablet TAKE 1 TABLET BY MOUTH EVERY DAY active Not Available Not Available No t Available docusate sodium 100 mg capsule TAKE 1 CAPSULE BY MOUTH AT BEDTIME active Not Available Not Available No t Available omeprazole 20 mg capsule,dana yed release TAKE 1 CAPSULE BY MOUTH TWICE A DAY active Not Available Not Available No t Available gabapentin 100 mg capsule active Not Available Not Available Not Available estradiol 0.01% (0.1 mg/gram) vaginal cream [...] Not Available Not Available No t Available cyclobenzapr ine 5 mg tablet TAKE 1 TABLET ORALLY EVERY 8 HOURS NEEDED FOR PAIN (SCALE SCORE 7-10) FOR 5 DAYS active Not Available Not Available N ot Available nitrofuranto in monohydrate/ macrocrystal s 100 mg capsule TAKE 1 CAPSULE BY MOUTH 2 TIMES A DAY FOR UTI FOR 5 DAYS MUST ADMINISTER WITH A MEAL/FOOD active Not Available Not Available No t Available Gas Relief Extra Strength 125 mg chewable tablet CHEW 1 TABLET BY MOUTH 2 TO 3 TIMES A DAY NEEDED FOR ABDOMINAL DISTENTION active Not Available Not Available N ot Available Calcium 500 With D 500 mg-10 [...] Updated DateTime 05/20/2024 157.48 cm 33.6 kg/m2 66052.2 g Toyin Cartagena [facility] 05/20/2024 13:57:06 Social History None recorded. Functional Status None recorded. Mental Status None recorded. Family History Nothing Reported. Medical History Condition Response Hypertension Y Asthma Y Gynecological HistoryNo gynecological history recorded. Obstetrics History GPAL:G 0 P 0 0 0 0 Past Encounters Encounter ID Performer Location Encounter Start Date Encounter Closed Date Diagnosis/Indication Diagnosis SNOMED-CT Code Diagnosis ICD10 Code Diagnosis Note [id number] ILEANA KULKARNI MD [facility] [address] [phone] 05/20/2024 13:04:07 05/20/2024 16:05:43 Chronic hoarseness 1471837164 105 R49.0 68-year-ol d female with a [...] future. Gastroesop hageal reflux disease without esophagitis 772065253 K21.9 Health Concerns Section Related Observation LastModified by Organization Detai ls LastModified Time None Recorded Concern Status LastModified by Organization Details LastModified Time None Recorded Advance Directives Directive None Recorded Payers Encounter Date Sequence Insurance Name Policy Number Policy Humphrey Covered Member ID Humphrey Member ID Guarantor Name 05/20/2024 1 [facility] - DOS ON OR AFTER 2023 - [employer] OPTIONS (MEDICARE REPLACEMENT/AD VANTAGE - HMO) Reji Cano [id number] Reji Cano Notes Date Note Type Note Provider Name and Address Organization Details Recorded Time 05/20/2024 text/html 68 yo F presents today for hoarseness. Has reflux on omeprazole. Has DM. Has asthma. Voice today is hoarse. Mild sore throat. No trouble swallowing. No otalgia. ILEANA KULKARNI MD [address] [place] [address], [phone], [facility] - [facility] 05/27/2024 13:31:24 OBGyn Episode No OBEpisode recorded.
== END 2024-11-21 14:24 | disposition home or self-care (01) ==
PROVIDERS: PCP Internal Medicine; Referring Provider Internal Medicine; Visit Provider Anesthesiology
DX: M54.50 Low back pain, unspecified (principal); M46.1 Sacroiliitis, not elsewhere classified; M53.3 Sacrococcygeal disorders, not elsewhere classified; G89.4 Chronic pain syndrome
CPT/HCPCS: 99204

== ENCOUNTER → 2024-11-21 13:58 | Outpatient (BNVA) | payer OTHER, SELFPAY | PROVIDERS: PCP Internal Medicine; Referring Provider Internal Medicine; Visit Provider Anesthesiology | DX: M54.50 Low back pain, unspecified (principal); M46.1 Sacroiliitis, not elsewhere classified; M53.3 Sacrococcygeal disorders, not elsewhere classified; G89.4 Chronic pain syndrome | CPT/HCPCS: 99202 ==

== ENCOUNTER → 2024-11-23 09:43 | Outpatient (BNVA) | payer OTHER, SELFPAY | PROVIDERS: PCP Internal Medicine; Visit Provider Advanced Practice Midwife | DX: R93.89 Abnormal findings on diagnostic imaging of other specified body structures (principal) | CPT/HCPCS: 99212 ==

== ENCOUNTER 2024-12-13 08:02 | Outpatient (AMB) | payer OTHER, SELFPAY ==
--- NOTE | 2024-12-13 08:05 | A.OFFVIS_ITS ---
Vital Signs 12/13/24 08:06 Height 5 ft 2 in Weight 183 lb BMI 33.5 BP 140/80 H Intake Visit Reasons: hysteroscopy consult Senior Investigator Required: Yes Senior Investigator Language: Home Support Worker Services: Senior Investigator Present (in person) Senior Investigator Name: Iraida HERNANDEZ Information Interpreted: non-clinical & clinical Administrative Technician: Administrative Technician Present (Iraida HERNANDEZ) Accompanied by: Self / Same As Patient Allergies Penicillins Allergy (Intermediate, Verified 12/13/24 08:12) DIZZINESS, RASH tramadol [TRAMADOL] Allergy (Intermediate, Verified 12/13/24 08:12) NAUSEA & VOMITING egg [Egg] Adverse Reaction (Intermediate, Verified 12/13/24 08:12) NAUSEA & VOMITING morphine Adverse Reaction (Intermediate, Verified 12/13/24 08:12) Chest Pain oxycodone Adverse Reaction (Verified 12/13/24 08:12) Dizziness FANY DRINK Allergy (Intermediate, Uncoded 12/13/24 08:12) NAUSEA & VOMITING Post menopausal: Yes HPI Comments Details: Presenting referred from Scarlett Guzman CNM regarding abnormal findings on pelvic ultrasound done on 09/30/2024 which showed the following: The anteverted uterus measures 8.1 x 4.1 x 4.3 cm, volume 75.5 mL. A 4.0 x 4.0 x 3.5 cm fibroid, previously 2.7 x 2.3 x 2.8 cm. A 1.1 x 0.9 x 0.9 cm fibroid, previously 1.2 x 0.9 x 1.0 cm. A 1.3 x 1.5 x 1.2 cm uterine hyperechoic lesion was not appreciated on the prior exam. Endometrium not visualized due to intrauterine heterogeneity and fibroids. Fluid within the lower uterine segment and endometrial canal. RIGHT ovary measures 1.8 x 1.2 x 1.4 cm, volume 1.6 mL. LEFT ovary measures 1.4 x 0.9 x 1.1 cm, volume 0.8 mL. The patient has had multiple pelvic ultrasound over the last few years here is a summary of the size of the myoma (s) 06/09 single uterine myoma measuring 2.6 cm enlarged diameter 01/08 single uterine myoma size 3 cm 06/10 single uterine myoma size 2.4 cm 05/11 2 uterine myomas , one measuring 2.7 cm and another myoma = 1.2 cm Last co testing in 05/08 was negative [facility] Medical History History of mammogram (~06/2024) PMB (postmenopausal bleeding) COVID-19 Impaired glucose regulation Dysuria Pelvic pain Burning with urination Fibroids Hiatal hernia Right shoulder pain Exposure to COVID-19 virus Mild depression TIA (transient ischemic attack) Asthma Back pain Abdominal pain Vaginal pruritus Vitamin D deficiency Left knee pain Left ankle pain Depression with anxiety Polyarthralgia Pure hypercholesterolemia Essential hypertension Surgical History History of tooth extraction History of colonoscopy History of cyst of breast History of hemicolectomy History of cholecystectomy History of appendectomy History of exploratory laparotomy Family History Father No problems noted. Mother Hypertension Stroke Diabetes Brother Leptospirosis Brother No problems noted. Family/Other FH: mental illness Son Hypertension Social History Household Members: Spouse Housing: Apartment Alcohol intake: never Patient Tobacco Use Status: Never used Tobacco e-Cigarette/Vaping Use: Never Used Second Hand Smoke Exposure: No service: No Current occupational status: disabled Sexual orientation: Straight/Heterosexual Gender identity: Female Cognitive needs: Yes Hearing needs: No Vision needs: Yes Female Reproductive History Menstrual Age of Menarche: 9 Physical Exam Vital Signs: Last Vital Signs BP 140/80 H 12/13/24 08:06 BMI result Body Mass Index 33.5 Office Procedures Endometrial Biopsy Details: The patient was counseled regarding the indication and benefits of endometrial sampling to rule out endometrial pathology including not limited to endometrial hyperplasia or endometrial cancer and others; The alternatives (Either do nothing vs. hysteroscopy D&C) & the risks were discussed with the patient including but not limited: pain, uterine perforation, bleeding, infection, possible injury to bladder, bowel, ureter, possible need for blood transfusion with all its possible risks. The patient verbalized understanding all questions answered and signed consent. The patient was placed into the dorsal lithotomy position; a speculum was inserted in the vagina. Using aseptic technique for the procedure, the cervix was cleansed with Betadine. The anterior lip of the cervix was grasped with a single tooth tenaculum. The uterus was sounded to 7 cm with a 4 mm Pipelle was used. The patient could not tolerate the procedure, EMB aborted. Tissues samples retrieved were placed in formalin, in a patient labeled container and sent to the pathology department. At the end of the procedure, there was minimal bleeding noted The patient tolerated the procedure well and was discharged in good condition with the following instructions: Nothing in the vagina until the bleeding stops. No sex until the bleeding stops, to call if any of the following occurs: fever (>100.4), flu-like symptoms, abdominal pain, heavy bleeding, four smelling vaginal discharge. The patient was instructed to schedule a Follow up appointment in 2 weeks to discuss pathology results of the biopsy and treatment options. This note was generated with a voice recognition program. Some errors may have been overlooked during the review of this note. Sometimes these errors may affect the content or meaning of a given sentence. [id number] Biopsy Assessment & Plan Assessment & Plan (1) PMB (postmenopausal bleeding): Comment: Endometrial fluid on US Code(s): N95.0 - Postmenopausal bleeding Category: Medical Plan: Discussed with the patient the differential diagnosis of post menopausal bleeding with normal pelvic exam including but not limited to, endometrial hyperplasia, cancer, polyps and other causes; Discussed with the patient the pelvic ultrasound findings, the endometrial stripe thickenss not able to be measured by ultrasound. Recommended to the patient that the next step is an endometrial sampling via hysteroscopy D&C possible polypectomy versus endometrial biopsy to r/o endometrial pathology including hyperplasia or cancer. All the pros and cons risks and benefits of each approach were discussed with the patient, endometrial biopsy being less invasive, office procedure with less sensitivity and inability diagnose a polyp and removal versus hysteroscopy done under anesthesia more invasive more sensitive to endometrial cancer and possibility of diagnosing and endometrial polyp with the possibility of polypectomy. All questions were answered pt verbalized understanding and decided to proceed with endometrial biopsy. EMB done, see procedure note. Instructions given the patient to schedule 1 week follow-up appointment This note was generated with a voice recognition program. Some errors may have been overlooked during the review of this note. Sometimes these errors may affect the content or meaning of a given sentence. (2) Uterine fibroid: Comment: Growing in size Code(s): D25.9 - Leiomyoma of uterus, unspecified Category: Medical Qualifiers: Uterine leiomyoma location: unspecified location Qualified Code(s): D25.9 - Leiomyoma of uterus, unspecified Plan: Discussed with the patient the results of the ultrasound and the size of the myomas over the last few years on multiple pelvic ultrasound. Discussed with the patient risk of myosarcoma and symptoms that are caused by myomas including but not limited to pelvic pain, pressure symptoms, abnormal uterine bleeding. In addition discussed with the patient options of treatment for myomas including: Serial ultrasounds periodically to follow-up on the size of the myoma versus surgical treatment including hysterectomy . All pros and cons, risks and benefits of all options were discussed with the patient. The patient under stands that delay in surgical treatment in case of myosarcoma can affect her prognosis, after further discussion, the patient decided to think about it and get back to us next visit Orders: Orders AMB Endometrial Biopsy Today N95.0 - Postmenopausal bleeding Medications: Discontinued clopidogrel (Plavix) Discontinued Reason: Patient no longer taking 75 mg PO DAILY 30 days 30 tabs 0RF Coding Level of Care Code Est Pt Level 3 (91537) Procedure Only Diagnoses PMB (postmenopausal bleeding) N95.0 Uterine leiomyoma, unspecified location D25.9 Uterine leiomyoma location: unspecified location CPT Codes Endometrial Biopsy - CPT: 35959-[id number] Biopsy ([id number])
[2024-12-13 08:06] VITALS: BP 140/80; BMI 33.5
--- OUTSIDE RECORDS SUMMARY | 2024-12-13 08:06 | XMS_ITS | Data Portability ---
Author Organization [facility] Address [address] [place] [phone] Care Team Providers Care Brush Clearing Laborer Name Role Phone [facility] Referring Provider Assessment Encounter Date Assessment Date Assessment LastModified by Organization Details LastModified Time 08/26/2023 08/26/2023 I provided real -time medical direction via phone for this encounter, and was available for additional phone based assistance as needed. I have reviewed and agree with the Assessment and Plan as documented by the Hr Business Partner 67-year-old female is seen for several days of cough productive clear sputum. No fevers. No shortness of breath. No chest pain. Covid [id number] testing negative. Given symptoms greater than five [...] Tessalon Perles 100 mg capsule 2022 023 [id number], [address] [place], [address], 3 11:33:30 Patient TargetsNo targets recorded. Patient InstructionsNo instructions recorded. Reason for Referral None Reported. Medical Equipment None Reported. Allergies Allergen ID Allergen Name Allergen Category Reaction Reaction Severity Criticality Documentation Date Start Date Code Code System Note Provider Name and Address Organization Details Recorded Time 0798 morphine medicatio n Not available Not available Not available 08/16/2024 7052 RxNorm Not Available [facility] - production 4 03:54:51 9364 Product containin g penicilli n (product) medicatio n Not available Not available Not available 08/16/2024 22855 8001 SNOMED Not Available [facility] - production 03:54:51 [...] SNOMED-CT Code Diagnosis ICD10 Code Diagnosis Note [id number] Noam Lua MD [facility] - [facility] [address] [place] [phone] 08/26/2023 11:31:29 10/24/2023 16:07:44 Cough 43744861 R05.9 Health Concerns Section Related Observation LastModified by Organization Detai ls LastModified Time None Recorded Concern Status LastModified by Organization Details LastModified Time None Recorded Advance Directives Directive None Recorded Payers Encounter Date Sequence Insurance Name Policy Number Policy Humphrey Covered Member ID Humphrey Member ID Guarantor Name 08/26/2023 1 [facility] - DOS ON OR AFTER 2023 - DUAL ELIGIBLE - ALF OPTIONS AND ONE CARE (MEDICARE REPLACEMENT/ADV ANTAGE - HMO) Ximena Cano [id number] Ximena Cano Notes Date Note Type Note [...] .................. .................. .................. .................. .................. .................. ............... Hr Business Partner Note From Scotty Rose: Patient reports eight days of productive cough with clear phlegm. Patient denies difficulty breathing, but states that the coughing is causing her back to hurt. Denies chest pain or changes in vision. Breath sounds clear in all mazariegos. [facility] contacted: prescription for Tessalon pearls at patient? s pharmacy of choice was made. Red flags covered with patient regarding symptoms and medication. POC Covid swab negative Hr Business Partner Allergies: Morphine, Penicillin .................. .................. .................. .................. .................. .................. .................. ............... Disposition: Fulfilled Noam Lua MD [address] [place] [address],[address], [place], [phone], GABE - JOANNA CHING 10/08/2023 12:32:44 OBGyn Episode No OBEpisode recorded.
--- OUTSIDE RECORDS SUMMARY | 2024-12-13 08:06 | XMS_ITS | Clinical Summary ---
Author Organization [facility] ity Address [address] [place] [address] Care Team Providers Care Rotary Furnace Operator Name Role Phone Unavailable Primary Care Provider Unavailabl e Social History Tobacco Use Types Packs/Day Years Used Date Smoking Tobacco: Never Assessed Comments Unknown Sex and Gender Information Value Date Recorded Sex Assigned at Not on file Legal Sex Female 8:27 PM EST Gender Identity Not on file Sexual Orientation Not on file Plan of Treatment Health Maintenance Due Date Last Done Comments Breast Cancer Screening 1955 DTaP,Tdap,and Td Vaccines (1 - Tdap) 1972 Pneumococcal Vaccine: 50+ Ye ars (1 of 1 - PCV) 12/22/2003 Zoster Vaccines (1 of 2) 12/22/2003 Colorectal Cancer Screening: Colonoscopy 11/13/2023 Depression Screening [...] patient's age to complete this topic Meningococcal B Vacine Aged Out No lo nger eligible based on patient's age to complete this topic RSV Immunization Patients Un yisel 20 months Aged Out No longer eligible b ased on patient's age to complete this topic Varicella Vaccines Aged Out No longer eligible based on patient's age to complete this topic
--- OUTSIDE RECORDS SUMMARY | 2024-12-13 08:06 | XMS_ITS | Clinical Summary ---
Author Organization [facility] Address [address] [place] [address] Care Team Providers Care Lorry Weigher Name Role Phone Unavailable Primary Care Provider [...] Active atorvastatin (LIPITOR) 20 mg tablet TOME SJUEY TABLETA POR V A ORAL AL ACOSTARSE [...] powder TAKE DIRECTED BY GASTRO[facility]OLOGY DEPARTMENT AT [facility] 03/20/20 22 Active SENNA 8.6 mg tablet [...] Prophy 04/12/2023 04/10/2022 Hypertension Screening (#1) 09/19/2023 [id number] (1 - 2023- season) 2024 Imm-Influenza (#1) [...] Most Recently Relevant to Health Maintenance Insurance [place] MEDICAID DENT[place] Member Subscriber Plan / Payer (Ef fective 2022-Present) Name:Ximena Lund Relation to Subscriber:Self Name:Ximena Lund Payer ID:[id number] Group ID:Not on file Type:Medicaid Address: [place] [id number] HEALTH SAFETY NET DENTAL - DENTAL HEALTH SAFETY NET DENTAL - DENTAL
== END 2024-12-13 09:01 | disposition home or self-care (01) ==
LOC: HO.HWS 08:02
PROVIDERS: PCP Internal Medicine; Visit Provider Obstetrics & Gynecology
DX: N95.0 Postmenopausal bleeding (principal); D25.9 Leiomyoma of uterus, unspecified
CPT/HCPCS: 58100; 99213

== ENCOUNTER 2024-12-13 08:02 | Outpatient (REF) | payer OTHER, SELFPAY ==
--- OUTSIDE RECORDS SUMMARY | 2024-12-13 09:42 | XMS_ITS | Clinical Summary ---
Author Organization [facility] it[facility] Address [address] [place] [address] Care Team Providers Care Instructional Design Consultant Name Role Phone Unavailable Primary Care Provider [...]
--- OUTSIDE RECORDS SUMMARY | 2024-12-13 09:42 | XMS_ITS | Clinical Summary ---
Author Organization [facility] Address [address] [place] [address] Care Team Providers Care Export Freight Clerk Name Role Phone Unavailable Primary Care Provider [...] TAKE DIRECTED BY GASTROENTEROLOGY DEPARTMENT AT [facility] 03/20/20 22 Active SENNA 8.6 mg [...] Prophy 04/12/2023 04/10/2022 Hypertension Screening (#1) 09/19/2023 [id number] (1 - 2023- season) 2024 Imm-Influenza (#1) [...] Most Recently Relevant to Health Maintenance Insurance [place] MEDICAID DENT[place] Member Subscriber Plan / Payer (Ef fective 2022-Present) Name:Ximena Lund Relation to Subscriber:Self Name:Ximena Lund Payer ID:[id number] Group ID:Not on file Type:Medicaid Address: [place] [id number] HEALTH SAFETY NET DENTAL - DENTAL HEALTH SAFETY NET DENTAL - DENTAL
== END 2024-12-13 08:03 | disposition home or self-care (01) ==
LOC: HO.LNP 08:02
PROVIDERS: PCP Internal Medicine; Visit Provider Obstetrics & Gynecology
DX: N95.0 Postmenopausal bleeding (principal); D25.9 Leiomyoma of uterus, unspecified; Z78.0 Asymptomatic menopausal state
CPT/HCPCS: 58100; 88305; 99212

== ENCOUNTER 2024-12-14 13:57 | Outpatient (AMB) | payer OTHER, SELFPAY ==
[2024-12-14 14:03] VITALS: BP 142/60; PULSE 76; BMI 33.7
--- NOTE | 2024-12-14 14:03 | A.OFFVIS_ITS ---
Vital Signs 12/14/24 14:03 Height 5 ft 2 in Weight 184 lb 4.903 oz BMI 33.7 BP 142/60 H Blood Pressure Location Lt brachial Position Sitting Pulse 76 Intake Visit Reasons: 3 month follow up Intake Note: Patient in office today in follow up of constipation. CC: Patient c/o abdominal pain almost every day. She states she is doing better from acid reflux and constipation. Family Resource Management Specialist Required: Yes Family Resource Management Specialist Services: Family Resource Management Specialist Present Family Resource Management Specialist Name: TERE Goldman Accompanied by: Self / Same As Patient Allergies Penicillins Allergy (Intermediate, Verified 12/14/24 14:10) DIZZINESS, RASH tramadol [TRAMADOL] Allergy (Intermediate, Verified 12/14/24 14:10) NAUSEA & VOMITING egg [Egg] Adverse Reaction (Intermediate, Verified 12/14/24 14:10) NAUSEA & VOMITING morphine Adverse Reaction (Intermediate, Verified 12/14/24 14:10) Chest Pain oxycodone Adverse Reaction (Verified 12/14/24 14:10) Dizziness FANY DRINK Allergy (Intermediate, Uncoded 12/13/24 08:12) NAUSEA & VOMITING HPI HPI 3 month follow up: Details: LAST VISIT GERD (gastroesophageal reflux disease) IBS (irritable bowel syndrome) Constipation Postprandial abdominal bloating Plan Patient will continue senna. Increase fluid intake and activity to promote better bowel motility. Patient will increase fiber intake as well. Will change omeprazole to pantoprazole. Patient was encouraged to avoid dietary triggers and late night snacking. Staying upright for minimum 3 hours after meals discussed with patient. Low FODMAP diet discussed with patient. Avoiding food that makes her gassy. List of food recommended as well as list of food to avoid given to patient. Patient can take simethicone on as needed basis 2 to 3 times a day. Follow-up in 2-3 months, sooner on as needed basis. Patient is agreeable to this plan and verbalizes understanding of instructions. She was given the opportunity to ask questions and all questions answered. ? Thank you for allowing me to participate in her care Medications New pantoprazole 40 mg PO BID 60 tabs 4RF K21.9 simethicone (Gas Relief (simethicone)) 125 mg PO BID-TID PRN 90 tabs 3RF abdominal distention Discontinued omeprazole Discontinued Reason: Doctor's Order 20 mg PO BID 180 caps 3RF TODAY'S VISIT Patient is here today for follow-up. Patient reports that since last time she has been feeling better her symptoms of acid reflux ask controlled. Takes pantoprazole half an hour before breakfast and before dinner. Patient reports that she is taking stool softener and Senokot and is moving her bowels, however patient reports that she feels like she does not empty her bowels completely. Patient still feels full after having a bowel movement. Denies melena, hematochezia. Reports upper abdominal pain. Patient reports that she feels like the pain is worse when she stands up, feels hard ball on her abdomen above umbilical area that is bulging out. Patient denies dyspepsia, dysphagia or odynophagia. Reports abdominal bloating. Tries to follow low FODMAP diet but not always. Patient admits to not drinking enough water. [facility] Medical History History of mammogram (~06/2024) PMB (postmenopausal bleeding) COVID-19 Impaired glucose regulation Dysuria Pelvic pain Burning with urination Fibroids Hiatal hernia Right shoulder pain Exposure to COVID-19 virus Mild depression TIA (transient ischemic attack) Asthma Back pain Abdominal pain Vaginal pruritus Vitamin D deficiency Left knee pain Left ankle pain Depression with anxiety Polyarthralgia Pure hypercholesterolemia Essential hypertension Surgical History History of tooth extraction History of colonoscopy History of cyst of breast History of hemicolectomy History of cholecystectomy History of appendectomy History of exploratory laparotomy Family History Father No problems noted. Mother Hypertension Stroke Diabetes Brother Leptospirosis Brother No problems noted. Family/Other FH: mental illness Son Hypertension Social History (Reviewed 12/14/24 @ 14:18 by CHEY ArguetaFab Household Members: Spouse Housing: Apartment Alcohol intake: never Patient Tobacco Use Status: Never used Tobacco e-Cigarette/Vaping Use: Never Used Second Hand Smoke Exposure: No service: No Current occupational status: disabled Sexual orientation: Straight/Heterosexual Gender identity: Female Cognitive needs: Yes Hearing needs: No Vision needs: Yes Female Reproductive History Menstrual Age of Menarche: 9 Review of Systems Const Denies weight gain and Denies weight loss ENT Reports no additional complaints, Denies dysphagia and Denies odynophagia Card Reports no additional complaints Resp Reports no additional complaints GI Reports abdominal pain, Denies belching, Denies melena, Reports bloating, Denies change in bowel habits, Reports constipation (Occasional), Denies dysphagia, Denies excessive flatus, Denies dyspepsia, Reports heartburn (Occasional), Denies diarrhea, Denies loose stools, Denies nausea, Denies odynophagia and Denies vomiting Reports no additional complaints Musc Reports no additional complaints Neuro Reports no additional complaints Psych Reports no additional complaints Endo Reports no additional complaints Physical Exam Vital Signs: Last Vital Signs Pulse 76 12/14/24 14:03 BP 142/60 H 12/14/24 14:03 BMI result Body Mass Index 33.7 Const General: cooperative, healthy appearing and no acute distress Nutritional Appearance: obese Orientation/consciousness: patient oriented x3 GI Other: Small periumbilical hernia at 12:00 o'clock, just above 10 cm to the upper right next to surgical scar another small tender area. Inspection: Yes normal to inspection and Yes obesity Palpation (GI): Soft to palpation, Tenderness to palpation present (GI) and Other GI palpation findings present (Nontender) Rectal Exam - Female: visual inspection normal General: Yes bladder normal to palpation External Female Exam: normal appearance of the urethra Speculum Exam - Vagina: normal appearance of the vagina, normal palpation and normal vaginal discharge Speculum Exam - Cervix: normal appearance of the cervix and normal palpation Bimanual exam- vagina & uterus: normal bimanual exam, normal palpation, uterine size normal, bladder normal to palpation, normal palpation, uterine shape normal and non-tender Bimanual Exam- Adnexa, other: normal adnexae and tender (Slightly tender no guar ding) on the right Neuro General: patient oriented x3 Assessment & Plan Assessment & Plan (1) GERD (gastroesophageal reflux disease): Code(s): K21.9 - Gastro-esophageal reflux disease without esophagitis Category: Medical Qualifiers: Esophagitis presence: esophagitis presence not specified Qualified Code(s): K21.9 - Gastro-esophageal reflux disease without esophagitis (2) IBS (irritable bowel syndrome): Code(s): K58.9 - Irritable bowel syndrome, unspecified Qualifiers: Irritable bowel syndrome type: with constipation Qualified Code(s): K58.1 - Irritable bowel syndrome with constipation (3) Constipation: Code(s): K59.00 - Constipation, unspecified Qualifiers: Constipation type: slow transit constipation Qualified Code(s): K59.01 - Slow transit constipation (4) Postprandial abdominal bloating: Code(s): R14.0 - Abdominal distension (gaseous) (5) Abdominal pain: Code(s): R10.9 - Unspecified abdominal pain Category: Medical Qualifiers: Abdominal location: left upper quadrant Qualified Code(s): R10.12 - Left upper quadrant pain (6) Ventral hernia: Code(s): K43.9 - Ventral hernia without obstruction or gangrene Qualifiers: Obstruction and gangrene presence: without obstruction or gangrene Qual ified Code(s): K43.9 - Ventral hernia without obstruction or gangrene (7) Umbilical hernia: Code(s): K42.9 - Umbilical hernia without obstruction or gangrene Qualifiers: Obstruction and gangrene presence: without obstruction or gangrene Qualified Code(s): K42.9 - Umbilical hernia without obstruction or gangrene Plan Patient can continue pantoprazole before breakfast and before dinner. Avoid dietary triggers and late night snacking. Staying upright for minimum 3 hours after meals discussed with patient. Will stop senna and Colace and start patient on Dulcolax. Patient was also encouraged to take fiber in the morning after breakfast and drink plenty fluids throughout the day. Increase fluid intake and activity to promote better bowel motility. On exam small periumbilical and close to her surgical scar possible ventral hernia. Tenderness with palpation well patient standing and coughing. Referral will be sent to General surgery for evaluation. Patient has good bowel movements in all 4 quadrants. Follow-up in 4 months, sooner on as needed basis. Patient is agreeable to this plan and verbalizes understanding of instructions. She was given the opportunity to ask questions and all questions answered. Thank you for allowing me to participate in her care Orders: Referrals General Surgery Referral K42.9 - Umbilical hernia without obstruction or gangrene, K43.9 - Ventral hernia without obstruction or gangrene Medications: New bisacodyl (Dulcolax (bisacodyl)) 10 mg (2 x 5 mg) PO BEDTIME 180 tabs 4RF Discontinued docusate sodium Discontinued Reason: Doctor's Order 100 mg PO BEDTIME 90 caps 3RF K59.00 - Constipation, unspecified sennosides (Natural Senna Laxative) Discontinued Reason: Doctor's Order 17.2 mg (2 x 8.6 mg) PO BEDTIME 90 tabs 3RF constipation K59.00 - Constipation, unspecified Coding Level of Care Code Est Pt Level 4 (34262) Complex EM visit Add On G2211 Diagnoses Gastroesophageal reflux disease, unspecified whether esophagitis present K21.9 Esophagitis presence: esophagitis presence not specified Irritable bowel syndrome with constipation K58.1 Irritable bowel syndrome type: with constipation Slow transit constipation K59.01 Constipation type: slow transit constipation Postprandial abdominal bloating R14.0 Left upper quadrant abdominal pain R10.12 Abdominal location: left upper quadrant Ventral hernia without obstruction or gangrene K43.9 Obstruction and gangrene presence: without obstruction or gangrene Umbilical hernia without obstruction and without gangrene K42.9 Obstruction and gangrene presence: without obstruction or gangrene Time Spent (min) 40 Comment 25 minutes spent with patient and additional 10 minutes spent reviewing her records
--- OUTSIDE RECORDS SUMMARY | 2024-12-14 17:11 | XMS_ITS | Clinical Summary ---
Author Organization [facility] Address [address] [place] [address] Care Team Providers Care Bank Worker Name Role Phone Unavailable Primary Care Provider [...] powder TAKE DIRECTED BY GASTROENTEROLOGY DEPARTMENT AT [facility] 03/20/20 22 Active SENNA 8.6 mg [...] Prophy 04/12/2023 04/10/2022 Hypertension Screening (#1) 09/19/2023 [id number] (1 - 2023- season) 2024 Imm-Influenza (#1) [...] Most Recently Relevant to Health Maintenance Insurance [place] Member Subscriber Plan / Payer (Ef fective 2022-Present) Name:Ximena Lund Relation to Subscriber:Self Name:Ximena Lund Payer ID:[id number] Group ID:Not on file Type:Medicaid Address: [place] [id number] HEALTH SAFETY NET DENTAL - DENTAL HEALTH SAFETY NET DENTAL - DENTAL
--- OUTSIDE RECORDS SUMMARY | 2024-12-14 17:11 | XMS_ITS | Data Portability ---
Author Organization [place] - [facility], Allergy Address [address] [place] [address] Care Team Providers Care Aix Administrator Name Role Phone CRUZ GONZALEZ Primary Care Provider Assessment No assessment recorded. Plan of Treatment Reminders Order Date Submit Date Provider Last Modified By Organization Details Last Modified Time Details Appointments None record ed. Lab None record ed. Referral None record ed. Procedures None record ed. Surgeries None record ed. Imaging None record ed. Medication Orders None record ed. Patient TargetsNo targets recorded. Patient InstructionsNo instructions recorded. Reason for Referral None Reported. Problems Name Problem SNOMED Code Status Onset Date Resolution Date Notes Provider Name and Address Organization Details Recorded Time Chronic hoarseness 9500073818061 Active 2023 ILEANA KULKARNI MD [address] [place] [address], [phone], [facility] - [facility] 4 13:27:44 Gastroesoph ageal reflux disease without esophagitis 826476452 Active 2023 ILEANA KULKARNI MD [address] [place] [address], [phone], [facility] - [facility] 4 13:30:14 Problem Notes None recorded. Procedures Surgical History Date Name Laterality Status Provider Name and Address Organization Details Recorded Time 05/20/20 24 Fiberoptic Laryngoscopy (Comprehensive) completed ILEANA KULKARNI MD [address] [place] [address], [place], [phone], [facility] - [facility] 05/27/2024 13:27:36 Imaging Results None recorded. [...] Updated DateTime 05/20/2024 157.48 cm 33.6 kg/m2 69653.2 g Toyin Cartagena [facility] 05/20/2024 13:57:06 Social History None recorded. Functional Status None recorded. Mental Status None recorded. Family History Nothing Reported. Medical History Condition Response Hypertension Y Asthma Y Gynecological HistoryNo gynecological history recorded. Obstetrics History GPAL:G 0 P 0 0 0 0 Past Encounters Encounter ID Performer Location Encounter Start Date Encounter Closed Date Diagnosis/Indication Diagnosis SNOMED-CT Code Diagnosis ICD10 Code Diagnosis Note [id number] ILEANA KULKARNI MD [facility] [address] [phone] 05/20/2024 13:04:07 05/20/2024 16:05:43 Chronic hoarseness 7613860944 105 R49.0 68-year-ol d female with a [...] future. Gastroesop hageal reflux disease without esophagitis 133850824 K21.9 Health Concerns Section Related Observation LastModified by Organization Detai ls LastModified Time None Recorded Concern Status LastModified by Organization Details LastModified Time None Recorded Advance Directives Directive None Recorded Payers Encounter Date Sequence Insurance Name Policy Number Policy Humphrey Covered Member ID Humphrey Member ID Guarantor Name 05/20/2024 1 [facility] - DOS ON OR AFTER 2023 - [employer] (MEDICARE REPLACEMENT/AD VANTAGE - HMO) Reji Cano [id number] Reji Cano Notes Date Note Type Note Provider Name and Address Organization Details Recorded Time 05/20/2024 text/html 68 yo F presents today for hoarseness. Has reflux on omeprazole. Has DM. Has asthma. Voice today is hoarse. Mild sore throat. No trouble swallowing. No otalgia. ILEANA KULKARNI MD [address] [place] [address], [phone], [place] - [facility] 05/27/2024 13:31:24 OBGyn Episode No OBEpisode recorded.
--- OUTSIDE RECORDS SUMMARY | 2024-12-14 17:11 | XMS_ITS | Clinical Summary ---
Author Organization [facility] ity Address [address] [place] [address] Care Team Providers Care Banner Painter Name Role Phone Unavailable Primary Care Provider [...]
--- OUTSIDE RECORDS SUMMARY | 2024-12-14 17:11 | XMS_ITS | Data Portability ---
Author Organization [employer] [place] - [facility] Address [address] [place] [phone] Care Team Providers Care Intelligence Chief Name Role Phone [facility] Referring Provider Assessment Encounter Date Assessment Date Assessment LastModified by Organization Details LastModified Time 08/26/2023 08/26/2023 I provided real -time medical direction via phone for this encounter, and was available for additional phone based assistance as needed. I have reviewed and agree with the Assessment and Plan as documented by the Trimming Cutter 67-year-old female is seen for several days of cough productive clear sputum. No fevers. No shortness of breath. No chest pain. Covid [id number] testing negative. Given symptoms greater than five [...] Tessalon Perles 100 mg capsule 2022 023 [facility] #[id number], [address] [place], [address], 3 11:33:30 Patient TargetsNo targets recorded. Patient InstructionsNo instructions recorded. Reason for Referral None Reported. Medical Equipment None Reported. Allergies Allergen ID Allergen Name Allergen Category Reaction Reaction Severity Criticality Documentation Date Start Date Code Code System Note Provider Name and Address Organization Details Recorded Time 6798 morphine medicatio n Not available Not available Not available 08/16/2024 7052 RxNorm Not Available [facility] - production 4 03:54:51 9364 Product containin g penicilli n (product) medicatio n Not available Not available Not available 08/16/2024 08086 8001 SNOMED Not Available [facility] - production [...] SNOMED-CT Code Diagnosis ICD10 Code Diagnosis Note [id number] Noam Lua MD Main - [facility] [address] [place] [phone] 08/26/2023 11:31:29 10/24/2023 16:07:44 Cough 92225923 R05.9 Health Concerns Section Related Observation LastModified by Organization Detai ls LastModified Time None Recorded Concern Status LastModified by Organization Details LastModified Time None Recorded Advance Directives Directive None Recorded Payers Encounter Date Sequence Insurance Name Policy Number Policy Humphrey Covered Member ID Humphrey Member ID Guarantor Name 08/26/2023 1 [facility] - DOS ON OR AFTER 2023 - DUAL ELIGIBLE - [employer] OPTIONS AND ONE [employer] (MEDICARE REPLACEMENT/ADV ANTAGE - HMO) Ximena Cano [id number] Ximena Cano Notes Date Note Type Note [...] .................. .................. .................. .................. .................. .................. ............... Trimming Cutter Note From Scotty Rose: Patient reports eight days of productive cough with clear phlegm. Patient denies difficulty breathing, but states that the coughing is causing her back to hurt. Denies chest pain or changes in vision. Breath sounds clear in all mazariegos. [facility] contacted: prescription for Tessalon pearls at patient? s pharmacy of choice was made. Red flags covered with patient regarding symptoms and medication. POC Covid swab negative Trimming Cutter Allergies: Morphine, Penicillin .................. .................. .................. .................. .................. .................. .................. ............... Disposition: Fulfilled Noam Lua MD [address] [place] [address],[address], [place], [phone], [facility] JOANNA CHING 10/08/2023 12:32:44 OBGyn Episode No OBEpisode recorded.
== END 2024-12-14 14:37 | disposition home or self-care (01) ==
PROVIDERS: PCP Internal Medicine; Visit Provider Nurse Practitioner Family
DX: K21.9 Gastro-esophageal reflux disease without esophagitis (principal); K58.1 Irritable bowel syndrome with constipation; K59.01 Slow transit constipation; R14.0 Abdominal distension (gaseous); R10.12 Left upper quadrant pain; K43.9 Ventral hernia without obstruction or gangrene; K42.9 Umbilical hernia without obstruction or gangrene
CPT/HCPCS: 99214; G2211

== ENCOUNTER → 2024-12-14 13:57 | Outpatient (BNVA) | payer OTHER, SELFPAY | PROVIDERS: PCP Internal Medicine; Visit Provider Nurse Practitioner Family | DX: K59.01 Slow transit constipation (principal); K21.9 Gastro-esophageal reflux disease without esophagitis; K58.1 Irritable bowel syndrome with constipation; R14.0 Abdominal distension (gaseous); R10.12 Left upper quadrant pain; K43.9 Ventral hernia without obstruction or gangrene; K42.9 Umbilical hernia without obstruction or gangrene; Z79.899 Other long term (current) drug therapy | CPT/HCPCS: 99212 ==

== ENCOUNTER 2024-12-20 09:18 | Outpatient (AMB) | payer OTHER, SELFPAY ==
--- NOTE | 2024-12-20 09:33 | MHC.OFFVIS ---
Vital Signs 12/20/24 09:34 Height 5 ft 2 in Weight 184 lb BMI 33.7 Intake Visit Reasons: EMB results Bellhop Captain Required: Yes Bellhop Captain Language: Dairy Farm Operator Services: Bellhop Captain Present (in person) Bellhop Captain Name: Iraida HERNANDEZ Information Interpreted: non-clinical & clinical Accompanied by: Self / Same As Patient Allergies Penicillins Allergy (Intermediate, Verified 12/20/24 09:45) DIZZINESS, RASH tramadol [TRAMADOL] Allergy (Intermediate, Verified 12/20/24 09:45) NAUSEA & VOMITING egg [Egg] Adverse Reaction (Intermediate, Verified 12/20/24 09:45) NAUSEA & VOMITING morphine Adverse Reaction (Intermediate, Verified 12/20/24 09:45) Chest Pain oxycodone Adverse Reaction (Verified 12/20/24 09:45) Dizziness FANY DRINK Allergy (Intermediate, Uncoded 12/20/24 09:45) NAUSEA & VOMITING Is last menstrual period known: No Post menopausal: Yes Patient : No Do you need a note to return to daycare/school/sports/work: Yes (for surgery on thursday) HPI Comments Details: The patient is presenting after endometrial biopsy. The patient has no complaints, no vaginal bleeding, no feverishness chills or abdominal pain. The endometrial biopsy pathology report showed the following: Endometrium, biopsy: Benign endometrial polyp; no atypia or carcinoma. [facility] Medical History History of mammogram (~06/2024) PMB (postmenopausal bleeding) COVID-19 Impaired glucose regulation Dysuria Pelvic pain Burning with urination Fibroids Hiatal hernia Right shoulder pain Exposure to COVID-19 virus Mild depression TIA (transient ischemic attack) Asthma Back pain Abdominal pain Vaginal pruritus Vitamin D deficiency Left knee pain Left ankle pain Depression with anxiety Polyarthralgia Pure hypercholesterolemia Essential hypertension Surgical History History of tooth extraction History of colonoscopy History of cyst of breast History of hemicolectomy History of cholecystectomy History of appendectomy History of exploratory laparotomy Family History Father No problems noted. Mother Hypertension Stroke Diabetes Brother Leptospirosis Brother No problems noted. Family/Other FH: mental illness Son Hypertension Social History Household Members: Spouse Housing: Apartment Alcohol intake: never Patient Tobacco Use Status: Never used Tobacco e-Cigarette/Vaping Use: Never Used Second Hand Smoke Exposure: No service: No Current occupational status: disabled Sexual orientation: Straight/Heterosexual Gender identity: Female Cognitive needs: Yes Hearing needs: No Vision needs: Yes Female Reproductive History Menstrual Age of Menarche: 9 Date of last menstrual period: 08/16/20 Total pregnancies: 2 Full term: 2 Review of Systems Card Reports as per HPI and Reports no additional complaints Resp Reports as per HPI and Reports no additional complaints GI Reports as per HPI and Reports no additional complaints Reports as per HPI Physical Exam Vital Signs: BMI result Body Mass Index 33.7 Const General: cooperative, healthy appearing and comfortable Resp Effort & Inspection: normal respiratory effort Auscultation: clear to auscultation bilaterally Percussion: percussion normal Cardio Palpation: normal PMI Rate: regular rate Rhythm: regular rhythm Heart sounds: no murmurs and no rubs Peripheral pulses: Peripheral pulses 2+ throughout GI Inspection: Yes normal to inspection Palpation (GI): Soft to palpation, nontender, no guarding, not rigid and No hepatosplenomegaly present Percussion: Yes normal to percussion Auscultation: normal bowel sounds Rectal Exam - Female: deferred Assessment & Plan Assessment & Plan (1) PMB (postmenopausal bleeding): Comment: Endometrial fluid on US and then endometrial polyp on EMB pathology Code(s): N95.0 - Postmenopausal bleeding Category: Medical Plan: Discussed with the patient the results of the pathology showing benign endometrial polyp, recommended hysteroscopy D&C possible polypectomy/myomectomy. Discussed with the patient the procedure , all benefits and risks including but not limited to inability to complete the procedure , insufficient endometrial tissue for a complete evaluation of the endometrial cavity , bleeding, infection, possible need for blood transfusion with all its risk ( HIV,syphilis, Hepatitis, anaphylaxis shock, others..), injury to bladder, rectum, possible need for laparoscopy/laparotomy or hysterectomy. The patient verbalized understanding and signed the consent. Instructions given the patient to stay NPO after midnight the day prior to the procedure and to take only amlodipine and losartan the morning of the surgical procedure and to schedule a 2 week postoperative appointment Medications: Discontinued pioglitazone Discontinued Reason: Patient no longer taking 15 mg PO DAILY 90 days 90 tabs 1RF Coding Level of Care Code Est Pt Level 3 (41569) Diagnoses PMB (postmenopausal bleeding) N95.0
[2024-12-20 09:34] VITALS: BMI 33.7
--- OUTSIDE RECORDS SUMMARY | 2024-12-20 10:14 | XMS_ITS | Clinical Summary ---
Author Organization [facility] Address [address] [address] Care Team Providers Care Open Die Inspector Name Role Phone Unavailable Primary Care Provider [...] powder TAKE DIRECTED BY GASTROENTEROLOGY DEPARTMENT AT [facility] 03/20/20 22 Active SENNA 8.6 mg tablet [...] Prophy 04/12/2023 04/10/2022 Hypertension Screening (#1) 09/19/2023 [id number] (1 - 2023- season) 2024 Imm-Influenza (#1) [...] Most Recently Relevant to Health Maintenance Insurance [place] Member Subscriber Plan / Payer (Ef fective 2022-Present) Name:Ximena Lund Relation to Subscriber:Self Name:Ximena Lund Payer ID:[id number] Group ID:Not on file Type:Medicaid Address: [place] [id number] HEALTH SAFETY NET DENTAL - DENTAL HEALTH SAFETY NET DENTAL - DENTAL
--- OUTSIDE RECORDS SUMMARY | 2024-12-20 10:14 | XMS_ITS | Data Portability ---
Author Organization [place] - [facility], Allergy Address [address] [place] [phone] Care Team Providers Care Splitter Hand Name Role Phone CRUZ GONZALEZ Primary Care [...] Address Organization Details Recorded Time Chronic hoarseness 0579822846232 Active 2023 ILEANA KULKARNI MD [address] [place] [address], [phone], [facility] - [facility] 4 13:27:44 Gastroesoph ageal reflux disease without esophagitis 882066488 Active 2023 ILEANA KULKARNI MD [address] [place] [address], [phone], [facility] - [facility] 4 13:30:14 Problem Notes None recorded. Procedures Surgical History Date Name Laterality Status Provider Name and Address Organization Details Recorded Time 05/20/20 24 Fiberoptic Laryngoscopy (Comprehensive) completed ILEANA KULKARNI MD [address] [place] [address], [place], [phone], [facility] - [facility] 05/27/2024 13:27:36 Imaging Results None recorded. [...] Updated DateTime 05/20/2024 157.48 cm 33.6 kg/m2 77209.2 g Toyin Cartagena [facility] 05/20/2024 13:57:06 Social History None recorded. Functional Status None recorded. Mental Status None recorded. Family History Nothing Reported. Medical History Condition Response Hypertension Y Asthma Y Gynecological HistoryNo gynecological history recorded. Obstetrics History GPAL:G 0 P 0 0 0 0 Past Encounters Encounter ID Performer Location Encounter Start Date Encounter Closed Date Diagnosis/Indication Diagnosis SNOMED-CT Code Diagnosis ICD10 Code Diagnosis Note [id number] ILEANA KULKARNI MD [facility] [address] [phone] 05/20/2024 13:04:07 05/20/2024 16:05:43 Chronic hoarseness 6770477331 105 R49.0 68-year-ol d female with a [...] future. Gastroesop hageal reflux disease without esophagitis 074216053 K21.9 Health Concerns Section Related Observation LastModified by Organization Detai ls LastModified Time None Recorded Concern Status LastModified by Organization Details LastModified Time None Recorded Advance Directives Directive None Recorded Payers Encounter Date Sequence Insurance Name Policy Number Policy Humphrey Covered Member ID Humphrey Member ID Guarantor Name 05/20/2024 1 [facility] - DOS ON OR AFTER 2023 - SENIOR LIVING OPTIONS (MEDICARE REPLACEMENT/AD VANTAGE - HMO) Reji Cano [id number] Reji Cano Notes Date Note Type Note Provider Name and Address Organization Details Recorded Time 05/20/2024 text/html 68 yo F presents today for hoarseness. Has reflux on omeprazole. Has DM. Has asthma. Voice today is hoarse. Mild sore throat. No trouble swallowing. No otalgia. ILEANA KULKARNI MD [address] [place] [address], [phone], [place] - [facility] 05/27/2024 13:31:24 OBGyn Episode No OBEpisode recorded.
--- OUTSIDE RECORDS SUMMARY | 2024-12-20 10:14 | XMS_ITS | Clinical Summary ---
Author Organization [facility] ity Address [address] [place] [address] Care Team Providers Care Stock Trader Name Role Phone Unavailable Primary Care Provider [...]
--- OUTSIDE RECORDS SUMMARY | 2024-12-20 10:15 | XMS_ITS | Data Portability ---
Author Organization [employer] [place] [facility] Address [address] [place] [phone] Care Team Providers Care Director Of Clinical Applications Name Role Phone [facility] Referring Provider Assessment Encounter Date Assessment Date Assessment LastModified by Organization Details LastModified Time 08/26/2023 08/26/2023 I provided real -time medical direction via phone for this encounter, and was available for additional phone based assistance as needed. I have reviewed and agree with the Assessment and Plan as documented by the Restaurant Hourly Manager 67-year-old female is seen for several days of cough productive clear sputum. No fevers. No shortness of breath. No chest pain. Covid nkbaw-co-fvox testing negative. Given symptoms greater than five [...] Tessalon Perles 100 mg capsule 2022 [id number] [address] [place], [address], 3 11:33:30 Patient TargetsNo targets recorded. Patient InstructionsNo instructions recorded. Reason for Referral None Reported. Medical Equipment None Reported. Allergies Allergen ID Allergen Name Allergen Category Reaction Reaction Severity Criticality Documentation Date Start Date Code Code System Note Provider Name and Address Organization Details Recorded Time 1368 morphine medicatio n Not available Not available Not available 08/16/2024 7052 RxNorm Not Available [facility] - production 4 03:54:51 9364 Product containin g penicilli n (product) medicatio n Not available Not available Not available 08/16/2024 22693 8001 SNOMED Not Available [facility] - production [...] SNOMED-CT Code Diagnosis ICD10 Code Diagnosis Note [id number] Noam Lua MD [facility] - [facility] [address] [place] [phone] 08/26/2023 11:31:29 10/24/2023 16:07:44 Cough 49994163 R05.9 Health Concerns Section Related Observation LastModified by Organization Detai ls LastModified Time None Recorded Concern Status LastModified by Organization Details LastModified Time None Recorded Advance Directives Directive None Recorded Payers Encounter Date Sequence Insurance Name Policy Number Policy Humphrey Covered Member ID Humphrey Member ID Guarantor Name 08/26/2023 1 [facility] - DOS ON OR AFTER 2023 - DUAL ELIGIBLE - NURSING HOME OPTIONS AND ONE CARE (MEDICARE REPLACEMENT/ADV ANTAGE - HMO) Ximena Cano [id number] Ximena Cano Notes Date Note Type Note [...] .................. .................. .................. .................. .................. .................. ............... Restaurant Hourly Manager Note From Scotty Rose: Patient reports eight days of productive cough with clear phlegm. Patient denies difficulty breathing, but states that the coughing is causing her back to hurt. Denies chest pain or changes in vision. Breath sounds clear in all mazariegos. [facility] contacted: prescription for Tessalon pearls at patient? s pharmacy of choice was made. Red flags covered with patient regarding symptoms and medication. POC Covid swab negative Restaurant Hourly Manager Allergies: Morphine, Penicillin .................. .................. .................. .................. .................. .................. .................. ............... Disposition: Fulfilled Noam Lua MD [address] [place] [address],[address], [place], [address], [facility] - JOANNA CHING 10/08/2023 12:32:44 OBGyn Episode No OBEpisode recorded.
== END 2024-12-20 10:04 | disposition home or self-care (01) ==
LOC: HO.HWS 09:18
PROVIDERS: PCP Internal Medicine; Visit Provider Obstetrics & Gynecology
DX: N95.0 Postmenopausal bleeding (principal)
CPT/HCPCS: 99213

== ENCOUNTER → 2024-12-20 09:18 | Outpatient (BNVA) | payer OTHER, SELFPAY | PROVIDERS: PCP Internal Medicine; Visit Provider Obstetrics & Gynecology | DX: N95.0 Postmenopausal bleeding (principal) | CPT/HCPCS: 99212 ==

== ENCOUNTER → 2024-12-22 10:53 | Outpatient (BNV) | payer OTHER, SELFPAY | PROVIDERS: PCP Internal Medicine; Visit Provider Obstetrics & Gynecology | DX: G89.18 Other acute postprocedural pain (principal) | CPT/HCPCS: 58558; 99232 ==

== ENCOUNTER → 2024-12-22 15:28 | Outpatient (BNV) | payer OTHER, SELFPAY | PROVIDERS: Admitting Provider Internal Medicine; PCP Internal Medicine; Visit Provider Internal Medicine Cardiovascular Disease | DX: R94.31 Abnormal electrocardiogram [ECG] [EKG] (principal); R07.89 Other chest pain | CPT/HCPCS: 93010 ==

== ENCOUNTER → 2024-12-22 15:41 | Outpatient (BNV) | payer OTHER, SELFPAY | PROVIDERS: PCP Internal Medicine; Visit Provider Radiology Diagnostic Radiology | DX: N95.0 Postmenopausal bleeding (principal) | CPT/HCPCS: 74177 ==

== ENCOUNTER 2024-12-22 19:34 | Observation (INO) | payer OTHER, SELFPAY ==
--- OUTSIDE RECORDS SUMMARY | 2024-12-20 14:06 | XMS_ITS | Clinical Summary ---
Author Organization [facility] ity Address [address] [place] [address] Care Team Providers Care Brewery Pumper Name Role Phone Unavailable Primary Care Provider [...]
--- OUTSIDE RECORDS SUMMARY | 2024-12-20 14:06 | XMS_ITS | Clinical Summary ---
Author Organization [facility] Address [address] [place] [address] Care Team Providers Care Commercial Loan Manager Name Role Phone Unavailable Primary Care Provider [...] powder TAKE DIRECTED BY GASTROENTEROLOGY DEPARTMENT AT [facility] 03/20/20 22 Active SENNA 8.6 mg [...] Prophy 04/12/2023 04/10/2022 Hypertension Screening (#1) 09/19/2023 [id number] (1 - 2023- season) 2024 Imm-Influenza (#1) [...] Lund Relation to Subscriber:Self Name:Ximena Lund Payer ID:[id number] Group ID:Not on file Type:Medicaid Address: [place] [id number] HEALTH SAFETY NET DENTAL - DENTAL HEALTH SAFETY NET DENTAL - DENTAL
--- NOTE | 2024-12-21 10:27 | P.CONAN_ITS ---
Documented by User: Bertha Hardin NP 12/21/24 10:34 HPI - Anesthesia Eval Consult details Narrative: 69yo F for D&C Hysteroscopy,possible myomectomy,possible polypectomy PMFSH Active Problems Active Problems: All Active Problems Chronic pain syndrome (Acute) Sacroiliac joint dysfunction of right side (Acute) Sacroiliitis (Acute) Low back pain (Acute) Right sciatic nerve pain (Acute) Right hip pain (Acute) Bilateral carotid artery stenosis (Acute) PMB (postmenopausal bleeding) (Acute) Dyspnea (Acute) Eye pain (Acute) Ear discomfort (Acute) Mixed stress and urge urinary incontinence (Acute) Lower urinary tract symptoms (Acute) Hoarseness of voice (Acute) Essential hypertension (Acute) Diabetes mellitus (Acute) Dysuria (Acute) Pelvic pain (Acute) Burning with urination (Acute) Fibroids (Acute) Osteopenia (Acute) Uterine fibroid (Acute) Hiatal hernia (Acute) Physical exam (Acute) Balance problem (Acute) Dizziness (Acute) Fatigue (Acute) Adult general medical exam (Acute) Post-menopausal (Acute) Screening for colon cancer (Acute) Right shoulder pain (Acute) Lab test negative for COVID-19 virus (Acute) Osteoarthritis of left knee (Acute) Chronic pain of both shoulders (Acute) Mild depression (Acute) Groin rash (Acute) Encounter for annual routine gynecological examination (Acute) Asthma (Acute) Back pain (Acute) Abdominal pain (Acute) Vaginal pruritus (Acute) Vitamin D deficiency (Acute) Left knee pain (Acute) Left ankle pain (Acute) Depression with anxiety (Acute) Polyarthralgia (Acute) Pure hypercholesterolemia (Acute) Essential hypertension (Acute) GERD (gastroesophageal reflux disease) (Acute) Past Medical History Medical History History of mammogram (~06/2024) PMB (postmenopausal bleeding) COVID-19 Impaired glucose regulation Dysuria Pelvic pain Burning with urination Fibroids Hiatal hernia Right shoulder pain Exposure to COVID-19 virus Mild depression TIA (transient ischemic attack) Asthma Back pain Abdominal pain Vaginal pruritus Vitamin D deficiency Left knee pain Left ankle pain Depression with anxiety Polyarthralgia Pure hypercholesterolemia Essential hypertension Family History Family History Father No problems noted. Mother Hypertension Stroke Diabetes Brother Leptospirosis Brother No problems noted. Family/Other FH: mental illness Son Hypertension Family history of problems with anesthesia: No Surgical History Surgical History History of tooth extraction History of colonoscopy History of cyst of breast History of hemicolectomy History of cholecystectomy History of appendectomy History of exploratory laparotomy History of Problems with Anesthesia: No Social History Social History Household Members: Spouse Housing: Apartment Are you a primary career resource technician to a significant other at home: No Do you presently have visiting nurse or other home services: No Alcohol intake: never Patient Tobacco Use Status: Never used Tobacco e-Cigarette/Vaping Use: Never Used Second Hand Smoke Exposure: No service: No Current occupational status: disabled Sexual orientation: Straight/Heterosexual Gender identity: Female Cognitive needs: Yes Hearing needs: No Vision needs: Yes Meds Allergies Allergy/AdvReac Type Severity Reaction Status Date / Time Penicillins Allergy Intermediate DIZZINESS, Verified 12/22/24 11:23 RASH tramadol [TRAMADOL] Allergy Intermediate NAUSEA & Verified 12/22/24 11:23 VOMITING egg [Egg] AdvReac Intermediate NAUSEA & Verified 12/22/24 11:23 VOMITING morphine AdvReac Intermediate Chest Pain Verified 12/22/24 11:23 oxycodone AdvReac Dizziness Verified 12/22/24 11:23 FANY DRINK Allergy Intermediate NAUSEA & Uncoded 12/20/24 09:45 VOMITING Home Medications ?Medication ?Instructions ?Recorded ?Confirmed ?Last Taken ?Type alcohol swabs pad topical 09/11/20 11/21/24 Unknown History citalopram 20 mg tablet 20 mg PO DAILY 12/14/24 Unknown History Exam Pertinent Lab Results Pertinent Lab Results: Laboratory Tests 09/06/24 11/09/24 14:06 15:50 WBC 9.8 Hgb 12.0 Hct 36.5 L Plt Count 271 Sodium 139 Potassium 4.1 Chloride 109 H Carbon Dioxide 25 BUN 11 Creatinine 0.75 Narrative Narrative: Carotid US 03/2024 R ICA 0-15% L ICA 16-49% ECHO 05/2024 1. Nml LVF 2. OVerall LV sys function nml with EF 60-65% 3. Diastolic filling pattern nml 4. Nml LA pressures 5. RV sys function nml 6. Mild thickening of anterior mitral valve leaflet 7. Mild thickening of posterior mitral valve leaflet 8. Mild mitral regurg 9. Mild pulmo htn 10. c/w 2020, mild pulmo htn Assessment and Plan Final Anesthetic Review Family History of Problems with Anesthesia: No History of Problems with Anesthesia: No Documented by User: Karina Stanley MD 12/22/24 13:26 PMFSH Past Medical History Medical History History of mammogram (~06/2024) PMB (postmenopausal bleeding) COVID-19 Impaired glucose regulation Dysuria Pelvic pain Burning with urination Fibroids Hiatal hernia Right shoulder pain Exposure to COVID-19 virus Mild depression TIA (transient ischemic attack) Asthma Back pain Abdominal pain Vaginal pruritus Vitamin D deficiency Left knee pain Left ankle pain Depression with anxiety Polyarthralgia Pure hypercholesterolemia Essential hypertension Family History Family History Father No problems noted. Mother Hypertension Stroke Diabetes Brother Leptospirosis Brother No problems noted. Family/Other FH: mental illness Son Hypertension Family history of problems with anesthesia: No Surgical History Surgical History History of tooth extraction History of colonoscopy History of cyst of breast History of hemicolectomy History of cholecystectomy History of appendectomy History of exploratory laparotomy History of Problems with Anesthesia: No Social History Social History Household Members: Spouse Housing: Apartment Are you a primary career resource technician to a significant other at home: No Do you presently have visiting nurse or other home services: No Alcohol intake: never Patient Tobacco Use Status: Never used Tobacco e-Cigarette/Vaping Use: Never Used Second Hand Smoke Exposure: No service: No Current occupational status: disabled Sexual orientation: Straight/Heterosexual Gender identity: Female Cognitive needs: Yes Hearing needs: No Vision needs: Yes Meds Allergies Allergy/AdvReac Type Severity Reaction Status Date / Time Penicillins Allergy Intermediate DIZZINESS, Verified 12/22/24 11:23 RASH tramadol [TRAMADOL] Allergy Intermediate NAUSEA & Verified 12/22/24 11:23 VOMITING egg [Egg] AdvReac Intermediate NAUSEA & Verified 12/22/24 11:23 VOMITING morphine AdvReac Intermediate Chest Pain Verified 12/22/24 11:23 oxycodone AdvReac Dizziness Verified 12/22/24 11:23 FANY DRINK Allergy Intermediate NAUSEA & Uncoded 12/20/24 09:45 VOMITING Home Medications ?Medication ?Instructions ?Recorded ?Confirmed ?Last Taken ?Type alcohol swabs pad topical 09/11/20 11/21/24 Unknown History citalopram 20 mg tablet 20 mg PO DAILY 12/14/24 Unknown History Exam Height,Weight and Vital Signs: Height 5 ft 1 in Weight 83 kg Vital Signs Temp Pulse Resp BP Pulse Ox O2 Del Method 12/22/24 11:24 97.8 F 75 14 152/72 H 97 Room Air Airway Mallampati Class: II TM Dist: >3cm Neck ROM: Full Denture: Upper (Patient states put long-lasting glue on dentures and cannot remove. Patient aware of risks associated with dislodgement including airway obstruction, aspiration, and damage to dentures and wishes to proceed) and Lower Loose/Missing/Broken Teeth: Yes Heart: RRR Lungs: CTAB Assessment and Plan Assessment Anesthesia Assessment: Anesthesia Plan Discussed and Chart Reviewed Final Anesthetic Review Family History of Problems with Anesthesia: No History of Problems with Anesthesia: No NPO: Yes ASA Class: III Final Preanesthetic Review: No Changes in Pt Med Stat, Meds/Allgs Chart Reviewed, Consent Obtained/Reviewed and Anes Risks/Benef Reviewed Patient Risk: Intermediate Procedure Risk: Low Assessment/Block/Sedation in SS: Assess/Block/Sedation-SS Anesthetic Plan Anesthetic Plan: GA Disposition: Standard PACU
[2024-12-22] VITALS (31 sets, daily range): BP systolic 134–183; BP diastolic 57–88; PULSE 63–85; RESP 13–28; TEMP 36.1–36.9; O2SAT 93–100; BMI 34.6
--- NOTE | 2024-12-22 | ECG_ITS ---
Test Reason : Chest tightness post op Blood Pressure : */* mmHG Vent. Rate : 68 BPM Atrial Rate : 68 BPM P-R Int : 160 ms QRS Dur : 94 ms QT Int : 416 ms P-R-T Axes : 45 -29 39 degrees QTcB Int : 442 ms Poor data quality Normal sinus rhythm Moderate voltage criteria for LVH, may be normal variant ( R in aVL , Masoud product ) Abnormal ECG When compared with ECG of 16-Oct-2023 11:45, please repeat EKg Referred By: Karina Stanley Electronically Signed By: MANUEL PEREIRA MD
--- NOTE | ~2024-12-22 | CT_ITS ---
CLINICAL HISTORY: pain post hysteroscopy D C polypectomy CT abdomen and pelvis with contrast Comparison: CT - CT ABDOMEN PELVIS W IV CON - 10/16/23 14:[address]/SR - CT ABDOMEN PELVIS W IV CON - 10/16/23 14:42 EST Findings: No consolidation at the lung bases. Status post cholecystectomy. Unremarkable bladder. Subcentimeter low attenuating lesion in the right kidney which is too small to characterize. Subcentimeter low attenuating lesion in the body of the pancreas could be interdigitating fat, unchanged. Fibroid uterus. Posterior to the uterus there heterogeneous attenuation fluid (at the superior aspect the fluid measures simple fluid attenuation, 12 Hounsfield units, and at the inferior aspect the fluid measures 36 Hounsfield units). The fluid extends up into the right adnexa. It measures 7.7 x 4.0 x 8.6 cm. No active hemorrhage is identified. The other solid organs are unremarkable. Small hiatal hernia. Small amount of fluid in the distal esophagus. No bowel wall thickening or dilation. Anastomotic sutures in the right lower quadrant of the distal small bowel and proximal colon. Colonic diverticulosis. No aneurysm. Mild calcified atherosclerotic disease. No lymphadenopathy. No acute osseous abnormality. Impression: Heterogeneous attenuation fluid in the pelvis posterior to the uterus is favored to be hemorrhage. No active hemorrhage is identified. This document has been electronically signed by: Faviola Velarde MD on 12/22/2024 16:51:46
[2024-12-22] MEDS: Lactated Ringers 1,000 ML 100 ML IVCONT (11:42)
--- NOTE | 2024-12-22 11:43 | MHC.SHP ---
Pre-Procedural Eval Section A - 24 Hr Update-Section A only Date of Service: 12/22/24 The patient is an INPATIENT: No Changes since office visit: No Cold of Flu in the past 2 weeks, No New Medical Problems, No Changes in Medication and No Patient answered all questions The patient has been examined within 24 hours of the surgical procedure. The History & Physical has been completed within 30 days and I have reviewed it.: Yes Section B - Complete if H&P > 30 days Chief Complaint: Postmenopausal bleeding Allergies: Allergies Allergy/AdvReac Type Severity Reaction Status Date / Time Penicillins Allergy Intermediate DIZZINESS, Verified 12/22/24 11:23 RASH tramadol [TRAMADOL] Allergy Intermediate NAUSEA & Verified 12/22/24 11:23 VOMITING egg [Egg] AdvReac Intermediate NAUSEA & Verified 12/22/24 11:23 VOMITING morphine AdvReac Intermediate Chest Pain Verified 12/22/24 11:23 oxycodone AdvReac Dizziness Verified 12/22/24 11:23 FANY DRINK Allergy Intermediate NAUSEA & Uncoded 12/20/24 09:45 VOMITING Plan Diagnosis/Plan: Unchanged I have reviewed the history and physical and performed a pertinent physical examination on my patient. No changes have occurred unless specified. Time Spent With Patient Time: Total time managing care of this patient today ____ minutes.
--- NOTE | 2024-12-22 13:13 | PM.OP ---
Brief Operative Note Date of Service: 12/22/24 Pre-op diagnosis: Postmenopausal bleeding, endometrial polyp on EMB pathology Post-op diagnosis: same (Endometrial polyp) Procedure: Hysteroscopy D&C, Polypectomy Surgeon: Gus Parisi MD Anesthesia: GLMA Was an Scutcher Tender used for this Procedure?: No Estimated blood loss (mL): 0 Pathology: other (Endometrial Scrapping. Polyp) Condition: stable Disposition: PACU
--- NOTE | 2024-12-22 13:13 | W.PM.OPN ---
Operative Note Operative Note Date of Service: 12/22/24 Narrative: Preop Diagnosis: Postmenopausal bleeding, Endometrial polyp on EMB pathology Operation: Diagnostic Hysteroscopy, Dilataion & Curettage and polypectomy Post Op Diagnosis: Endometrial Polyp QBL: Minimal Anesthesia: GLMA Surgeon: Gus Parisi MD Patent Solicitor: None Complication: None Pathology: Endometrial Scrapings, Endometrial polyp Procedure: The patient was put in the dorsal lithotomy position, scrubbed, and draped in the usual manner. A sterile speculum was inserted in the patient's vagina. The anterior lip of the cervix was grasped with a single tooth tenaculum. The cervix was dilated up to 5 mm, then the scope was inserted in the patient's uterus. Inspection revealed endometrial polyp. The Myosure Reach device was used; it was introduced through the operative channel and polypectomy done with no complications. The scope was then taken out from the uterine cavity, sharp curettings was carried on with minimal to moderate amount of tissues retrieved. At the end of the procedure, all instruments were taken out of the patient uterine and vaginal cavity. The single tooth tenaculum was removed and homeostasis was assured using pressure,. The patient tolerated the procedure well and was transferred to the PACU in a stable condition.
[2024-12-22] MEDS: fentaNYL citrate/PF 100 MCG/2 ML VIAL 25 MCG IVPUSH ×6 (13:30→16:30)
[2024-12-22] MEDS: Ketorolac Tromethamine 15 MG/ML VIAL IVPUSH (13:39)
[2024-12-22] MEDS: Ondansetron ODT 4 MG TAB.RAPDIS TRANSLINGU (14:29)
--- NOTE | 2024-12-22 15:09 | P.EN_ITS ---
Event Note Date of Service: 12/22/24 Event Note: 14:28: Texted by nurse to see patient c/o chest pressure. Patient is s/p D&C, hysteroscopy, endometrial polypectomy. Uneventful procedure. Patient had c/o pain for which she has been treaqted with fentanyl and ketorolac. Patient seen and is right now only c/o Left lower quadrant and hypogastric areas. Pain worse with palpation and maybe some guarding? 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 VSS. EKG on monitor SR 65. No ST changes. Dr Parisi here to see patient. CT scan ordered. Also checking CBC, troponin, chemistry, 12 lead EKG Time Spent With Patient Time: Total time managing care of this patient today ____ minutes.
--- NOTE | 2024-12-22 15:13 | PM.GYNPNOP ---
VENDING MACHINE REPAIRER - Subjective Subjective Date of Service: 12/23/24 Interval history: Called post post op pain, with chest pressure. the pain is described like labor pain according to the patient, no vaginal bleeding H&H 10.9/33.3 Chem wnl Troponin neg CT abd/pelvis showed eg follwoing: No consolidation at the lung bases. Status post cholecystectomy. Unremarkable bladder. Subcentimeter low attenuating lesion in the right kidney which is too small to characterize. Subcentimeter low attenuating lesion in the body of the pancreas could be interdigitating fat, unchanged. Fibroid uterus. Posterior to the uterus there heterogeneous attenuation fluid (at the superior aspect the fluid measures simple fluid attenuation, 12 Hounsfield units, and at the inferior aspect the fluid measures 36 Hounsfield units). The fluid extends up into the right adnexa. It measures 7.7 x 4.0 x 8.6 cm. No active hemorrhage is identified. The other solid organs are unremarkable. Small hiatal hernia. Small amount of fluid in the distal esophagus. No bowel wall thickening or dilation. Anastomotic sutures in the right lower quadrant of the distal small bowel and proximal colon. Colonic diverticulosis. No aneurysm. Mild calcified atherosclerotic disease. No lymphadenopathy. No acute osseous abnormality. Impression: Heterogeneous attenuation fluid in the pelvis posterior to the uterus is favored to be hemorrhage. No active hemorrhage is identified. 6:20 pain has improved down ro -11/28, no n/v repeat H&H SVS afebile GP=483/70 HR= 77 RR=16 DIRECTOR BUSINESS SYSTEMS Physical Exam Vitals Vital signs: Temp Pulse Resp BP Pulse Ox O2 Del Method O2 Flow Rate 97.4 F 68 20 183/75 H 100 Nasal Cannula with Capnography 2 12/22/24 13:23 12/22/24 15:00 12/22/24 15:00 12/22/24 15:00 12/22/24 15:00 12/22/24 15:00 12/22/24 15:00 BMI result Body Mass Index 34.6 Abdomen Auscultation/Inspection/Palpation: Soft, Non-distended and Tenderness VENDING MACHINE REPAIRER - Prog Note: Results Labs 12/23/24 06:31 12/22/24 16:19 VENDING MACHINE REPAIRER - A/P (1) Post-op pain: Status: Acute Assessment and Plan: Since the pt is stable, pain resolving, H&H stable, history of multiple surgeries and extensive adhesions and no evidence active bleeding by CT Will admit for observation VS q 4, H&H q 6 hours, pain management prn, NPO, SCD's Assessment/Plan Procedure/Diagnosis: Procedures Operation Date: 12/22/24 12:30 Actual Procedure Side Surgeon p D&C Hysteroscopy, polypectomy Not Applicable Gus Parisi MD Time Spent With Patient Time: Total time managing care of this patient today ____ minutes.
--- NOTE | 2024-12-22 15:19 | PC.NURSE ---
Pt endorsed 8/10 LLQ abdominal pain-PRN Fentanyl IVP 25mcg x2 and PRN Toradol 15mg given with no effect on pain. Pt endorsed chest pressure without pain-no change in rhythm on tele monitor. Pt denies dizziness/palpitations. Dr. Stanley at bedside-made aware of events including nausea w/retching-vomiting. PRN ODT Zofran given. Per Dr. Stanley page Dr. Parisi. Dr. Parisi made aware-at bedside to evaluate patient. See New orders. Dr. Parisi updated spouse.
--- NOTE | 2024-12-22 15:41 | PC.NURSE ---
EKG completed. Pt transported to CT scan.
[2024-12-22] MEDS: iohexoL 350 MG/ML 75 ML INFUS..BTL 85 ML IV (15:58)
[2024-12-22 16:23] LABS: MANUAL DIFF FLAG NO
[2024-12-22 16:28] LABS: Basophils Percent Auto 0.4 % (0-2); Eosinophils Percent Auto 0.3 % (0-4); Hematocrit 33.3 % (37.0-47.0); Hemoglobin 10.9 g/dl (12.0-16.0); Imm Gran Abs Auto 0.04 X10*3/uL (0.00-0.03); Imm Gran Pct Auto 0.4 % (0.0-0.4); Lymphocytes Absolute Auto 1.2 X10*3/uL (1.2-4.9); Lymphocytes Percent Auto 11.4 % (20-40); Mean Corpuscular HGB Conc 32.7 g/dl (31.0-35.0); Mean Corpuscular Hemoglobin 29.9 pg (27.0-33.0); Mean Corpuscular Volume 91.2 fL (80.0-98.0); Mean Platelet Volume 10.7 fL (9.4-12.3); Monocytes Absolute Auto 0.2 X10*3/uL (0.1-1.2); Monocytes Percent Auto 1.6 % (2-11); Neutrophils Absolute Auto 9.3 x10*3/uL (2.0-8.3); Neutrophils Percent Auto 85.9 % (45-73); Platelet Count 255 X10*3/uL (160-400); Red Blood Count 3.65 X10*6/uL (4.20-5.50); Red Cell Distribution Width 13.2 % (11.0-16.0); White Blood Count 10.8 X10*3/uL (4.8-10.8)
[2024-12-22 16:53] LABS: Alanine Aminotransferase 11 U/L (0-31); Albumin Level 3.8 g/dL (3.5-5.0); Anion Gap 12 (12-20); Aspartate Amino Transferase 23 U/L (5-31); Bilirubin Total 0.5 mg/dL (0.0-1.0); Blood Urea Nitrogen 10 mg/dL (9-16); Carbon Dioxide 25 mmol/L (22-29); Chloride 105 mmol/L (96-108); Estimated Glomerular Filt Rate > 60; Glucose Random 140 mg/dL (60-115); Potassium 3.6 mmol/L (3.3-5.1); Sodium 138 mmol/L (135-145)
[2024-12-22 16:55] LABS: Troponin-I High Sensitivity < 2.7 ng/L (<3.5-17.0)
[2024-12-22] MEDS: LORazepam 2 MG/ML VIAL 1 MG IVPUSH (17:10)
[2024-12-22 17:43] LABS: Alkaline Phosphatase 128 U/L (39-117)
[2024-12-22 18:17] LABS: Hematocrit 35.2 % (37.0-47.0); Hemoglobin 11.5 g/dl (12.0-16.0); Mean Corpuscular HGB Conc 32.7 g/dl (31.0-35.0); Mean Corpuscular Hemoglobin 29.3 pg (27.0-33.0); Mean Corpuscular Volume 89.6 fL (80.0-98.0); Mean Platelet Volume 11.1 fL (9.4-12.3); Platelet Count 260 X10*3/uL (160-400); Red Blood Count 3.93 X10*6/uL (4.20-5.50); White Blood Count 11.1 X10*3/uL (4.8-10.8)
--- NOTE | 2024-12-22 18:22 | HO.ANESPROP2 ---
[facility] Active Problems Active Problems: All Active Problems Post-op pain (Acute) Chronic pain syndrome (Acute) Sacroiliac joint dysfunction of right side (Acute) Sacroiliitis (Acute) Low back pain (Acute) Right sciatic nerve pain (Acute) Right hip pain (Acute) Bilateral carotid artery stenosis (Acute) PMB (postmenopausal bleeding) (Acute) Dyspnea (Acute) Eye pain (Acute) Ear discomfort (Acute) Mixed stress and urge urinary incontinence (Acute) Lower urinary tract symptoms (Acute) Hoarseness of voice (Acute) Essential hypertension (Acute) Diabetes mellitus (Acute) Dysuria (Acute) Pelvic pain (Acute) Burning with urination (Acute) Fibroids (Acute) Osteopenia (Acute) Uterine fibroid (Acute) Hiatal hernia (Acute) Physical exam (Acute) Balance problem (Acute) Dizziness (Acute) Fatigue (Acute) Adult general medical exam (Acute) Post-menopausal (Acute) Screening for colon cancer (Acute) Right shoulder pain (Acute) Lab test negative for COVID-19 virus (Acute) Osteoarthritis of left knee (Acute) Chronic pain of both shoulders (Acute) Mild depression (Acute) Groin rash (Acute) Encounter for annual routine gynecological examination (Acute) Asthma (Acute) Back pain (Acute) Abdominal pain (Acute) Vaginal pruritus (Acute) Vitamin D deficiency (Acute) Left knee pain (Acute) Left ankle pain (Acute) Depression with anxiety (Acute) Polyarthralgia (Acute) Pure hypercholesterolemia (Acute) Essential hypertension (Acute) GERD (gastroesophageal reflux disease) (Acute) Past Medical History Medical History History of mammogram (~06/2024) PMB (postmenopausal bleeding) COVID-19 Impaired glucose regulation Dysuria Pelvic pain Burning with urination Fibroids Hiatal hernia Right shoulder pain Exposure to COVID-19 virus Mild depression TIA (transient ischemic attack) Asthma Back pain Abdominal pain Vaginal pruritus Vitamin D deficiency Left knee pain Left ankle pain Depression with anxiety Polyarthralgia Pure hypercholesterolemia Essential hypertension Family History Family History Father No problems noted. Mother Hypertension Stroke Diabetes Brother Leptospirosis Brother No problems noted. Family/Other FH: mental illness Son Hypertension Family history of problems with anesthesia: No Surgical History Surgical History History of tooth extraction History of colonoscopy History of cyst of breast History of hemicolectomy History of cholecystectomy History of appendectomy History of exploratory laparotomy History of Problems with Anesthesia: No Social History Social History Household Members: Spouse Housing: Apartment Are you a primary animal caretaker to a significant other at home: No Do you presently have visiting nurse or other home services: No Alcohol intake: never Patient Tobacco Use Status: Never used Tobacco e-Cigarette/Vaping Use: Never Used Second Hand Smoke Exposure: No Use of substances other than those prescribed or required for medical reasons: No Have you been hit, kicked, punched, or otherwise hurt by someone within the past year? If so, by whom?: No Are you DNR?: No Advance Directives: No Advance Directives Information Provided: Yes Recently lost weight without trying: No Nutrition Risks: No Nutritional Risk service: No Current occupational status: disabled Sexual orientation: Straight/Heterosexual Gender identity: Female Cognitive needs: Yes Hearing needs: No Vision needs: Yes Meds Allergies Allergy/AdvReac Type Severity Reaction Status Date / Time Penicillins Allergy Intermediate DIZZINESS, Verified 12/22/24 11:23 RASH tramadol [TRAMADOL] Allergy Intermediate NAUSEA & Verified 12/22/24 11:23 VOMITING egg [Egg] AdvReac Intermediate NAUSEA & Verified 12/22/24 11:23 VOMITING morphine AdvReac Intermediate Chest Pain Verified 12/22/24 11:23 oxycodone AdvReac Dizziness Verified 12/22/24 11:23 FANY DRINK Allergy Intermediate NAUSEA & Uncoded 12/20/24 09:45 VOMITING Active Medications: Current Medications Albuterol Sulfate (Albuterol Sulfate (0.083%) 2.5 Mg/3 Ml Vial.Neb) 2.5 mg INHALE ONCE PRN PRN Reason: Shortness of Breath/Wheezing Fentanyl (Fentanyl Citrate/Pf 100 Mcg/2 Ml Vial) 25 mcg IVPUSH Q5M PRN PRN Reason: Pain, Moderate to Severe (Pain Scale 4-10) Stop: 12/22/24 19:22 Last Admin: 12/22/24 16:30 Dose: 25 mcg Haloperidol Lactate (Haloperidol Lactate 5 Mg/Ml Vial) 1 mg IVPUSH ONCE PRN PRN Reason: intractable nausea Stop: 12/22/24 23:06 Lactated Ringer's (Lr) 1,000 mls @ 100 mls/hr IVCONT .Q10H BAILEE Last Admin: 12/22/24 11:42 Dose: 100 mls/hr Lorazepam (Lorazepam 2 Mg/Ml Vial) 1 mg IVPUSH ONCE PRN PRN Reason: anxiety/restlessness Last Admin: 12/22/24 17:10 Dose: 1 mg Oxycodone HCl (Oxycodone Hcl Immed Release 5 Mg Tablet) 5 mg PO ONCE PRN PRN Reason: Pain, Moderate(Pain Scale 4-6) if no IV Access Stop: 12/22/24 19:23 Home Medications ?Medication ?Instructions ?Recorded ?Confirmed ?Last Taken ?Type alcohol swabs pad topical 09/11/20 11/21/24 Unknown History citalopram 20 mg tablet 20 mg PO DAILY 12/14/24 Unknown History Exam Height,Weight and Vital Signs: Height 5 ft 1 in Weight 83 kg Last Vital Signs Temp 97.2 F 12/22/24 18:15 Pulse 78 12/22/24 18:15 Resp 20 12/22/24 18:15 BP 147/71 H 12/22/24 18:15 Pulse Ox 99 12/22/24 18:15 O2 Del Method Nasal Cannula with Capnography 12/22/24 18:15 O2 Flow Rate 1 12/22/24 18:15 Pertinent Lab Results Pertinent Lab Results: Laboratory Tests 12/22/24 12/22/24 16:19 17:59 WBC 10.8 11.1 H RBC 3.65 L 3.93 L Hgb 10.9 L 11.5 L Hct 33.3 L 35.2 L MCV 91.2 89.6 MCH 29.9 29.3 MCHC 32.7 32.7 RDW 13.2 13.0 Plt Count 255 260 MPV 10.7 11.1 Immature Gran % (Auto) 0.4 Neut % (Auto) 85.9 H Lymph % (Auto) 11.4 L [place] % (Auto) 1.6 L Eos % (Auto) 0.3 Baso % (Auto) 0.4 Lymph # (Auto) 1.2 [place] # (Auto) 0.2 Eos # (Auto) 0.0 Baso # (Auto) 0.0 Abs Immat Gran (auto) 0.04 H Absolute Neuts (auto) 9.3 H Absolute Nucleated RBC 0.000 0.000 Nucleated RBC % (auto) 0.0 0.0 Sodium 138 Potassium 3.6 Chloride 105 Carbon Dioxide 25 Anion Gap 12 BUN 10 Creatinine 0.73 Estim Creat Clear Calc 69.0 Estimated GFR > 60 Random Glucose 140 H Calcium 9.0 Total Bilirubin 0.5 AST 23 ALT 11 Alkaline Phosphatase 128 H Troponin I High Sens < 2.7 Total Protein 7.0 Albumin 3.8 Crossmatch See Detail Airway Mallampati Class: III TM Dist: >3cm Neck ROM: Full Denture: Upper and Lower Assessment and Plan Assessment Anesthesia Assessment: Anesthesia Plan Discussed and Chart Reviewed Final Anesthetic Review Family History of Problems with Anesthesia: No History of Problems with Anesthesia: No NPO: Yes ASA Class: III and Emergency Final Preanesthetic Review: No Changes in Pt Med Stat, Meds/Allgs Chart Reviewed, Consent Obtained/Reviewed and Anes Risks/Benef Reviewed Patient Risk: Intermediate Procedure Risk: Intermediate Anesthetic Plan Anesthetic Plan: GA Disposition: Standard PACU
--- NOTE | 2024-12-22 19:33 | PC.NURSE ---
1930 Call to hospitalist regarding admission obs- review of procedure and current vital signs provided. Hospitalist indicated will come evaluate patient in pacu for addmission
--- NOTE | 2024-12-22 19:40 | PM.IMHP ---
History of Present Illness Date of Service: 12/22/24 Attending physician on admission: Gustavo Oviedo Chief Complaint: Chest pain since this afternoon Patient is a pleasant 69-year-old female with a history of coronary artery disease s/p AR more than 15 years ago in [place], hypertension, hyperlipidemia and anxiety who is admitted at the request of Dr. Lopez for close monitoring after she complained of having chest pain post-operatively. She underwent a diagnostic hysteroscopy, dilatation and curettage and polypectomy for evaluation of postmenopausal bleeding earlier today. The procedure was uneventful. However, while in recovery in PACU, she started complaining of chest pressure which she described as a midsternal nonradiating pressure that was associated with shortness of breath, nausea and vomiting x3 but with no associated diaphoresis or palpitations. EKG done then revealed normal sinus rhythm with no acute ischemic changes while a CT scan of the abdomen and pelvis done showed a heterogenous attenuation fluid in the pelvis, posterior to the uterus that was favored to be hemorrhage but with no acute bleeding identified. her hemoglobin has been closely monitored and has remained stable at around 11 grams/deciliter. When I saw her, she was comfortable in bed and denied having any chest or abdominal pain. Her vital signs were also fairly stable. Review of Systems Review of Systems: Yes all other systems are reviewed and are negative [facility] Medical History History of mammogram (~06/2024) PMB (postmenopausal bleeding) COVID-19 Impaired glucose regulation Dysuria Pelvic pain Burning with urination Fibroids Hiatal hernia Right shoulder pain Exposure to COVID-19 virus Mild depression TIA (transient ischemic attack) Asthma Back pain Abdominal pain Vaginal pruritus Vitamin D deficiency Left knee pain Left ankle pain Depression with anxiety Polyarthralgia Pure hypercholesterolemia Essential hypertension Functional capacity: independent ambulation Patient : No Family History Father No problems noted. Mother Hypertension Stroke Diabetes Brother Leptospirosis Brother No problems noted. Family/Other FH: mental illness Son Hypertension Surgical History History of tooth extraction History of colonoscopy History of cyst of breast History of hemicolectomy History of cholecystectomy History of appendectomy History of exploratory laparotomy Social History Household Members: Spouse Housing: Apartment Are you a primary primary care pediatrician to a significant other at home: No Do you presently have visiting nurse or other home services: No Alcohol intake: never Patient Tobacco Use Status: Never used Tobacco e-Cigarette/Vaping Use: Never Used Second Hand Smoke Exposure: No Use of substances other than those prescribed or required for medical reasons: No Have you been hit, kicked, punched, or otherwise hurt by someone within the past year? If so, by whom?: No Are you DNR?: No Advance Directives: No Advance Directives Information Provided: Yes Recently lost weight without trying: No Nutrition Risks: No Nutritional Risk Patient : No service: No Current occupational status: disabled Sexual orientation: Straight/Heterosexual Gender identity: Female Cognitive needs: Yes Hearing needs: No Vision needs: Yes Meds Allergies Allergy/AdvReac Type Severity Reaction Status Date / Time Penicillins Allergy Intermediate DIZZINESS, Verified 12/22/24 11:23 RASH tramadol [TRAMADOL] Allergy Intermediate NAUSEA & Verified 12/22/24 11:23 VOMITING egg [Egg] AdvReac Intermediate NAUSEA & Verified 12/22/24 11:23 VOMITING morphine AdvReac Intermediate Chest Pain Verified 12/22/24 11:23 oxycodone AdvReac Dizziness Verified 12/22/24 11:23 FANY DRINK Allergy Intermediate NAUSEA & Uncoded 12/20/24 09:45 VOMITING Home Medications ?Medication ?Instructions ?Recorded ?Confirmed ?Last Taken ?Type acetaminophen 500 mg tablet 500 mg PO Q6H PRN Fever Or Pain 12/22/24 12/22/24 Unknown History atenolol 50 mg tablet 50 mg PO DAILY 12/22/24 12/22/24 Unknown History docusate sodium 100 mg capsule 100 mg PO BEDTIME 12/22/24 12/22/24 Unknown History pantoprazole 40 mg tablet,delayed 40 mg PO BID@0630,1630 12/22/24 12/22/24 Unknown History release pioglitazone 15 mg tablet 15 mg PO DAILY 12/22/24 12/22/24 Unknown History sennosides 8.6 mg tablet (senna) 17.2 mg PO BEDTIME PRN constipation 12/22/24 12/22/24 Unknown History simethicone 125 mg chewable tablet 125 mg PO TID PRN abdominal 12/22/24 12/22/24 Unknown History (Gas Relief (simethicone)) distention Physical Exam Vital Signs and Narrative: Vital Signs: Last Vital Signs Temp 97.2 F 12/22/24 18:15 Pulse 67 12/22/24 19:35 Resp 14 12/22/24 19:35 BP 134/72 12/22/24 19:35 Pulse Ox 100 12/22/24 19:35 O2 Del Method Nasal Cannula wit h Capnography 12/22/24 19:35 O2 Flow Rate 1 12/22/24 19:35 BMI result Body Mass Index 34.6 General: Well nourished elderly female in bed. Awake, alert and oriented x 4. No apparent distress Eyes: No pallor or jaundice. PERRLA, EOMI HENT: Moist oral mucus membranes. No oropharyngeal lesions. Neck: Supple. No cervical adenopathy. No JVD Cardiovascular: Regular rate and rhythm. Normal heart sounds. No murmurs, rubs or gallops. No JVD. No peripheral edema. Respiratory: Normal respiratory effort with no accessory muscle use. CTAB. Gastrointestinal: Abdomen is soft, non-tender, non-distended. Normoactive bowel sounds in all quadrants. No hepatosplenomegaly Extremities: No edema. No calf tenderness. Good peripheral pulses Skin: Warm/Dry. No rashes. No mottling. Capillary refill is < 2 seconds Neurological: AAOx4. Intact speech & cognition. Normal gait & balance. CN II - XII grossly intact but not individually tested. No motor or sensory deficits Hematologic: No bleeding. No ecchymosis. No swollen or tender lymph nodes. Psychiatric: Cooperative. Appropriate mood and affect Results Labs 12/22/24 23:41 12/22/24 16:19 Labs: Laboratory Results - last 24 hr 12/22/24 12/22/24 16:19 17:59 MCV 91.2 89.6 MCH 29.9 29.3 MCHC 32.7 32.7 RDW 13.2 13.0 Plt Count 255 260 MPV 10.7 11.1 Immature Gran % (Auto) 0.4 Neut % (Auto) 85.9 H Lymph % (Auto) 11.4 L [place] % (Auto) 1.6 L Eos % (Auto) 0.3 Baso % (Auto) 0.4 Lymph # (Auto) 1.2 [place] # (Auto) 0.2 Eos # (Auto) 0.0 Baso # (Auto) 0.0 Abs Immat Gran (auto) 0.04 H Absolute Neuts (auto) 9.3 H Absolute Nucleated RBC 0.000 0.000 Nucleated RBC % (auto) 0.0 0.0 Anion Gap 12 Estim Creat Clear Calc 69.0 Estimated GFR > 60 Random Glucose 140 H Calcium 9.0 Total Bilirubin 0.5 AST 23 ALT 11 Alkaline Phosphatase 128 H Total Protein 7.0 Albumin 3.8 Blood Type B Positive Antibody Screen NEGATIVE Crossmatch See Detail Imaging Radiologist's Impressions: CT scan of Abdomen and Pelvis Impression: Heterogeneous attenuation fluid in the pelvis posterior to the uterus is favored to be hemorrhage. No active hemorrhage is identified. Assessment and Plan (1) Chest pain: Qualifiers: Chest pain type: unspecified Qualified Code(s): R07.9 - Chest pain, unspecified Status: Acute (2) Post-op pain: Status: Acute Plan 69-year-old female with a history of coronary artery disease s/p AR more than 15 years ago in [place], hypertension, hyperlipidemia and anxiety here with: # Chest pain - atypical for ACS - now chest pain free - admit and monitor # Anemia - H/H is atable - monitor # essential hypertension -BP well controlled -resume amlodipine, atenolol and losartan # hyperlipidemia -resume atorvastatin -check lipid panel # anxiety - resume Buspirone # Post op pain - further management per surgical team DVT: SCD's CODE STATUS: Full code Admission for at least 1 midnights for management of atypical chest pain This note is constructed using voice recognition software. While every effort has been made to ensure accuracy, psychology instructor errors may have been included. Total time managing care of this patient today: 55 minutes. Quality Stroke Does the patient have a stroke diagnosis?: No VTE Prior VTE?: No VTE Risk Level:: Medical - moderate - high VTE Device Contraindication: N/A - Device Ordered VTE Drug Contraindication: N/A - Med Ordered
--- NOTE | 2024-12-22 21:15 | PHA.MEDREC ---
Pharmacy Consult ? Medication Reconciliation Pharmacy has completed the medication reconciliation.
[2024-12-23 00:04] LABS: Hematocrit 33.7 % (37.0-47.0); Hemoglobin 11.2 g/dl (12.0-16.0)
[2024-12-23] MEDS: Enoxaparin Sodium 40 MG/0.4 ML SYRINGE SUBCUT (00:29)
[2024-12-23] MEDS: Ketorolac Tromethamine 30 MG/ML VIAL IVPUSH (00:29)
[2024-12-23] MEDS: busPIRone HCl 10 MG TABLET PO ×2 (00:30→08:36)
[2024-12-23] MEDS: Gabapentin 100 MG CAPSULE PO (00:30)
[2024-12-23] MEDS: Dextrose 5 % and 0.45 % NaCl 1,000 ML 100 ML IVCONT (00:31)
[2024-12-23 03:00] VITALS: BP 138/63; PULSE 62; RESP 20; TEMP 36.4; O2SAT 95
[2024-12-23 07:00] VITALS: BP 153/69; PULSE 69; RESP 18; TEMP 36.3; O2SAT 98
[2024-12-23 07:01] LABS: MANUAL DIFF FLAG NO
[2024-12-23 07:11] LABS: Basophils Percent Auto 0.1 % (0-2); Hematocrit 32.1 % (37.0-47.0); Hemoglobin 10.3 g/dl (12.0-16.0); Imm Gran Abs Auto 0.04 X10*3/uL (0.00-0.03); Imm Gran Pct Auto 0.5 % (0.0-0.4); Lymphocytes Absolute Auto 0.9 X10*3/uL (1.2-4.9); Lymphocytes Percent Auto 10.8 % (20-40); Mean Corpuscular HGB Conc 32.1 g/dl (31.0-35.0); Mean Corpuscular Hemoglobin 29.2 pg (27.0-33.0); Mean Corpuscular Volume 90.9 fL (80.0-98.0); Mean Platelet Volume 11.3 fL (9.4-12.3); Monocytes Absolute Auto 0.5 X10*3/uL (0.1-1.2); Monocytes Percent Auto 5.3 % (2-11); Neutrophils Absolute Auto 7.3 x10*3/uL (2.0-8.3); Neutrophils Percent Auto 83.3 % (45-73); Platelet Count 245 X10*3/uL (160-400); Red Blood Count 3.53 X10*6/uL (4.20-5.50); Red Cell Distribution Width 13.1 % (11.0-16.0); White Blood Count 8.7 X10*3/uL (4.8-10.8)
--- NOTE | 2024-12-23 07:52 | PM.GYNPNOP ---
MIXER OPERATOR TABLETS - Subjective Subjective Date of Service: 12/23/24 Interval history: Doing well pain-free without any analgesics since midnight. Voiding freely. Tolerated clear liquid diet overnight, diet advanced to regular and tolerated, no nausea or vomiting no abdominal distention, ambulating. 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 Physical Exam Vitals Vital signs: Temp Pulse Resp BP Pulse Ox O2 Del Method O2 Flow Rate 97.4 F 69 18 153/69 H 98 Room Air 1 12/23/24 07:00 12/23/24 07:00 12/23/24 07:00 12/23/24 07:00 12/23/24 07:00 12/23/24 07:00 12/22/24 19:35 BMI result Body Mass Index 34.6 Abdomen Auscultation/Inspection/Palpation: Soft, Non-distended and Tenderness (Mild left lower quadrant tenderness) MIXER OPERATOR TABLETS - Prog Note: Results Labs 12/23/24 06:31 12/23/24 06:31 Labs: Laboratory Results - last 24 hr 12/22/24 12/22/24 12/22/24 16:19 17:59 23:41 WBC 10.8 11.1 H RBC 3.65 L 3.93 L Hgb 10.9 L 11.5 L 11.2 L Hct 33.3 L 35.2 L 33.7 L MCV 91.2 89.6 MCH 29.9 29.3 MCHC 32.7 32.7 RDW 13.2 13.0 Plt Count 255 260 MPV 10.7 11.1 Immature Gran % (Auto) 0.4 Neut % (Auto) 85.9 H Lymph % (Auto) 11.4 L [place] % (Auto) 1.6 L Eos % (Auto) 0.3 Baso % (Auto) 0.4 Lymph # (Auto) 1.2 [place] # (Auto) 0.2 Eos # (Auto) 0.0 Baso # (Auto) 0.0 Abs Immat Gran (auto) 0.04 H Absolute Neuts (auto) 9.3 H Absolute Nucleated RBC 0.000 0.000 Nucleated RBC % (auto) 0.0 0.0 Sodium 138 Potassium 3.6 Chloride 105 Carbon Dioxide 25 Anion Gap 12 BUN 10 Creatinine 0.73 Estim Creat Clear Calc 69.0 Estimated GFR > 60 Random Glucose 140 H Calcium 9.0 Total Bilirubin 0.5 AST 23 ALT 11 Alkaline Phosphatase 128 H Troponin I High Sens < 2.7 Total Protein 7.0 Albumin 3.8 Blood Type B Positive Antibody Screen NEGATIVE Crossmatch See Detail 12/23/24 06:31 WBC 8.7 RBC 3.53 L Hgb 10.3 L Hct 32.1 L MCV 90.9 MCH 29.2 MCHC 32.1 RDW 13.1 Plt Count 245 MPV 11.3 Immature Gran % (Auto) 0.5 H Neut % (Auto) 83.3 H Lymph % (Auto) 10.8 L [place] % (Auto) 5.3 Eos % (Auto) 0.0 Baso % (Auto) 0.1 Lymph # (Auto) 0.9 L [place] # (Auto) 0.5 Eos # (Auto) 0.0 Baso # (Auto) 0.0 Abs Immat Gran (auto) 0.04 H Absolute Neuts (auto) 7.3 Absolute Nucleated RBC 0.000 Nucleated RBC % (auto) 0.0 Sodium Potassium Chloride Carbon Dioxide Anion Gap BUN Creatinine Estim Creat Clear Calc Estimated GFR Random Glucose Calcium Total Bilirubin AST ALT Alkaline Phosphatase Troponin I High Sens Total Protein Albumin Blood Type Antibody Screen Crossmatch MIXER OPERATOR TABLETS - A/P (1) Post-op pain: Status: Acute Assessment and Plan: Hematoma status post hysteroscopic polypectomy/D and C Plan Since the patient is pain-free without analgesics, abdominal exam shows minimal tenderness, H&H is stable, tolerating regular diet, ambulating freely Discharge home on azithromycin 500 mg day 1 followed by 250 mg p.o. q.d. for 6 more days in addition to metronidazole 500 mg p.o. b.i.d. for 7 days for prevention of infection of the hematoma (the patient is penicillin allergic) Tylenol/ibuprofen p.r.n. for pain. Instructions given the patient to call or go to emergency room in case of recurrence of pain, dizziness, nausea or vomiting, fever above 100.4, abdominal distention Follow-up in the office in a week Assessment/Plan Procedure/Diagnosis: Procedures Operation Date: 12/22/24 12:30 Actual Procedure Side Surgeon p D&C Hysteroscopy, polypectomy Not Applicable Gus Parisi MD Operation Date: 12/22/24 17:50 <No data on this case meets the specified criteria> Operation Date: 12/22/24 19:00 <No data on this case meets the specified criteria> Time Spent With Patient Time: Total time managing care of this patient today ____ minutes. Quality Measures - HYDRO STATION SUPERVISOR H&P VTE Prior VTE?: No VTE Risk Level:: Medical - moderate - high VTE Device Contraindication: N/A - Device Ordered VTE Drug Contraindication: N/A - Med Ordered
[2024-12-23 08:09] LABS: Alanine Aminotransferase 10 U/L (0-31); Albumin Level 3.5 g/dL (3.5-5.0); Anion Gap 11 (12-20); Aspartate Amino Transferase 23 U/L (5-31); Bilirubin Total 0.5 mg/dL (0.0-1.0); Blood Urea Nitrogen 13 mg/dL (9-16); Calcium 8.7 mg/dL (8.4-10.2); Carbon Dioxide 24 mmol/L (22-29); Chloride 108 mmol/L (96-108); Cholesterol 90 mg/dL (<200); Estimated Glomerular Filt Rate > 60; Glucose Random 187 mg/dL (60-115); HDL Cholesterol 35 mg/dL (>40); LDL Cholesterol Calculated 45 mg/dL (<100); Sodium 139 mmol/L (135-145); Total Protein 6.5 g/dL (6.5-8.0); Triglycerides 53 mg/dL (<150)
[2024-12-23 08:25] LABS: Thyroid Stimulating Hormone 0.32 uIU/mL (0.32-4.0)
[2024-12-23] MEDS: Calcium + Vitamin D 250 MG TABLET PO (08:36)
[2024-12-23] MEDS: Mirabegron 25 MG TAB.ER.24H PO (08:36)
[2024-12-23] MEDS: Losartan Potassium 25 MG TABLET PO (08:37)
[2024-12-23] MEDS: Aspirin Enteric Coated 81 MG TABLET.DR PO (08:37)
[2024-12-23] MEDS: atenoloL 50 MG TABLET PO (08:37)
[2024-12-23] MEDS: amLODIPine Besylate 5 MG TABLET PO (08:37)
--- NOTE | 2024-12-23 08:54 | MHC.CM.PN ---
Addendum entered by Becky Agudelo 12/23/24 11:27: Discharge today home with spouse providing transportation. Original Note: [place] 12/23/24 DX Chest pain S/P surgical intervention D+C. Lives with spouse. DME: [facility] provides home services 2 x a week. A copy of her HCP has been requested. DP home resumption of [employer] services spouse will transport home.
[2024-12-23 09:17] LABS: Troponin-I High Sensitivity < 2.7 ng/L (<3.5-17.0)
[2024-12-23 10:53] LABS: Alkaline Phosphatase 110 U/L (39-117)
[2024-12-23 11:00] VITALS: BP 128/58; PULSE 57; RESP 18; TEMP 36.1; O2SAT 98
[2024-12-23 13:22] VITALS: O2SAT 97
--- NOTE | 2024-12-23 14:08 | P.DS_ITS ---
DS: Providers Provider Date of Service: 12/23/24 Date of admission: 12/22/24 19:34 Date of discharge: 12/23/24 Primary care physician: Aure Horton MD DS: Diagnosis Discharge Diagnosis (1) Post-op pain: Status: Acute DS: Summary Hospital Course Hospital Course: History of presenting illness: Date of Service: 12/22/24 Attending physician on admission: Gustavo Oviedo Chief Complaint: Chest pain since this afternoon Patient is a pleasant 69-year-old female with a history of coronary artery disease s/p [place] more than 15 years ago in [place], hypertension, hyperlipidemia and anxiety who is admitted at the request of Dr. Lopez for close monitoring after she complained of having chest pain post-operatively. She underwent a diagnostic hysteroscopy, dilatation and curettage and polypectomy for evaluation of postmenopausal bleeding earlier today. The procedure was uneventful. However, while in recovery in PACU, she started complaining of chest pressure which she described as a midsternal nonradiating pressure that was associated with shortness of breath, nausea and vomiting x3 but with no associated diaphoresis or palpitations. EKG done then revealed normal sinus rhythm with no acute ischemic changes while a CT scan of the abdomen and pelvis done showed a heterogenous attenuation fluid in the pelvis, posterior to the uterus that was favored to be hemorrhage but with no acute bleeding identified. her hemoglobin has been closely monitored and has remained stable at around 11 grams/deciliter. When I saw her, she was comfortable in bed and denied having any chest or abdominal pain. Her vital signs were also fairly stable. Hospital course: 69-year-old female with a history of coronary artery disease s/p [place] more than 15 years ago in [place], hypertension, hyperlipidemia and anxiety admitted to medical floor due to postop chest pain after undergoing diagnostic hysteroscopy D&C and polypectomy, patient admitted to medical floor EKG showed no acute ischemic changes, troponin x2 were negative, CT abdomen and pelvis showed heterogeneous attenuation fluid in the pelvis likely postoperative hematoma, chest pain resolved, no further cardiac workup warranted patient followed closely by OBGYN patient H&H remained stable this morning she is ambulating tolerating diet therefore being discharged home on Flagyl and azithromycin for 1 week to cover for postoperative infection she is recommended to returned to hospital with worsening pain nausea vomiting dizziness or high- grade fever otherwise follow-up with Dr. Parisi in 1 week. In regard to her other chronic medical issues including hypertension hyperlipidemia and anxiety she has been continued on all of her baseline medications., she is recommend to hold aspirin for 5 days due to hematoma and to take Tylenol for pain control. Time Attestation Discharge Coordination Time (in mins): 40 Quality: Safe Use of Opioids Does Pt have an Active Cancer Diagnosis on the Problem List?: No Quality: Stroke Does the patient have a stroke diagnosis?: No Physical Exam Vital Signs: Vital Signs: Last Vital Signs Temp 97.0 F 12/23/24 11:00 Pulse 57 12/23/24 11:00 Resp 18 12/23/24 11:00 BP 128/58 L 12/23/24 11:00 Pulse Ox 98 12/23/24 11:00 O2 Del Method Room Air 12/23/24 11:00 O2 Flow Rate 1 12/22/24 19:35 BMI result Body Mass Index 34.6 Const: Other: General in no acute distress. Neck supple no JVD. CVS regular rate rhythm, Respiratory lungs clear to auscultation, no respiratory distress Gastrointestinal abdomen soft, mild lower abdominal tenderness, no guarding , no rigidity. Extremities no edema. Neuro non focal Skin no rash Appropriate affect DS: Data Data Completed and Pending Pending studies at discharge: Pending at discharge 12/22/24 13:10 Surgical [PTH] Routine Labs on day of discharge: Laboratory Results - last 24 hr 12/22/24 12/22/24 12/22/24 16:19 17:59 23:41 WBC 10.8 11.1 H RBC 3.65 L 3.93 L Hgb 10.9 L 11.5 L 11.2 L Hct 33.3 L 35.2 L 33.7 L MCV 91.2 89.6 MCH 29.9 29.3 MCHC 32.7 32.7 RDW 13.2 13.0 Plt Count 255 260 MPV 10.7 11.1 Immature Gran % (Auto) 0.4 Neut % (Auto) 85.9 H Lymph % (Auto) 11.4 L [place] % (Auto) 1.6 L Eos % (Auto) 0.3 Baso % (Auto) 0.4 Lymph # (Auto) 1.2 [place] # (Auto) 0.2 Eos # (Auto) 0.0 Baso # (Auto) 0.0 Abs Immat Gran (auto) 0.04 H Absolute Neuts (auto) 9.3 H Absolute Nucleated RBC 0.000 0.000 Nucleated RBC % (auto) 0.0 0.0 Sodium 138 Potassium 3.6 Chloride 105 Carbon Dioxide 25 Anion Gap 12 BUN 10 Creatinine 0.73 Estim Creat Clear Calc 69.0 Estimated GFR > 60 Random Glucose 140 H Calcium 9.0 Total Bilirubin 0.5 AST 23 ALT 11 Alkaline Phosphatase 128 H Troponin I High Sens < 2.7 Total Protein 7.0 Albumin 3.8 Triglycerides Cholesterol LDL Cholesterol, Calc HDL Cholesterol TSH Blood Type B Positive Antibody Screen NEGATIVE Crossmatch See Detail 12/23/24 06:31 WBC 8.7 RBC 3.53 L Hgb 10.3 L Hct 32.1 L MCV 90.9 MCH 29.2 MCHC 32.1 RDW 13.1 Plt Count 245 MPV 11.3 Immature Gran % (Auto) 0.5 H Neut % (Auto) 83.3 H Lymph % (Auto) 10.8 L [place] % (Auto) 5.3 Eos % (Auto) 0.0 Baso % (Auto) 0.1 Lymph # (Auto) 0.9 L [place] # (Auto) 0.5 Eos # (Auto) 0.0 Baso # (Auto) 0.0 Abs Immat Gran (auto) 0.04 H Absolute Neuts (auto) 7.3 Absolute Nucleated RBC 0.000 Nucleated RBC % (auto) 0.0 Sodium 139 Potassium 4.0 Chloride 108 Carbon Dioxide 24 Anion Gap 11 L BUN 13 Creatinine 0.72 Estim Creat Clear Calc 70.0 Estimated GFR > 60 Random Glucose 187 H Calcium 8.7 Total Bilirubin 0.5 AST 23 ALT 10 Alkaline Phosphatase 110 Troponin I High Sens < 2.7 Total Protein 6.5 Albumin 3.5 Triglycerides 53 Cholesterol 90 LDL Cholesterol, Calc 45 HDL Cholesterol 35 L TSH 0.32 Blood Type Antibody Screen Crossmatch Discharge Plan Discharge Anticipated Discharge Date/Time: 12/23/24 14:02 Patient Disposition: Home, Self-Care Discharge Diagnosis: Chest pain acute coronary syndrome ruled out Hematoma status post hysteroscopic polypectomy Referrals: Aure Barrett MD [Primary Care Provider] - 1 Week Discharge Medications: New azithromycin 250 mg tablet 250 mg PO DAILY 7 Days Qty: 8 0RF Rx Instructions: Take 2 tablets (500 mg) 1st day then 1 tablet a day (250 mg) for 6 more days, day 2-7 metronidazole 500 mg tablet 500 mg PO BID 7 Days Qty: 14 0RF Continued (DME) AeroEclipse II Nebulizer [facility] [place] See Rx Instructions .ROUTE .MEDSUPPLY Qty: 1 0RF Rx Instructions: As directed (DME) colleen [facility] [place] See Rx Instructions .ROUTE .MEDSUPPLY Qty: 1 0RF Rx Instructions: As Directed calcium carbonate-vitamin D3 [Oyster Shell Calcium-Vit D3] 500 mg-10 mcg (400 unit) tablet 1 tab PO DAILY 90 Days Qty: 90 2RF losartan 25 mg tablet 25 mg PO DAILY 90 Days Qty: 90 1RF atorvastatin 20 mg tablet 20 mg PO BEDTIME 90 Days Qty: 90 1RF (DME) blood pressure test kit-large [Advocate Blood Pressure Monitr] Kit See Rx Instructions .Route Qty: 1 0RF Rx Instructions: As directed amlodipine 5 mg tablet 5 mg PO DAILY Qty: 30 2RF buspirone 10 mg tablet 10 mg PO BID 90 Days Qty: 180 1RF lidocaine [Lidoderm] 5 % adhesive patch,medicated 1 patch topical DAILY MDD remove after 12 hours PRN (Reason: pain) Qty: 30 0RF Rx Instructions: leave on most painful area for up to 12 hrs pioglitazone 15 mg tablet 15 mg PO DAILY sennosides [senna] 8.6 mg tablet 17.2 mg PO BEDTIME PRN (Reason: constipation) acetaminophen 500 mg Tablet 500 mg PO Q6H PRN (Reason: Fever Or Pain) docusate sodium 100 mg capsule 100 mg PO BEDTIME atenolol 50 mg Tablet 50 mg PO DAILY pantoprazole 40 mg tablet,delayed release (DR/EC) 40 mg PO BID@0630,1630 simethicone [Gas Relief (simethicone)] 125 mg tablet,chewable 125 mg PO TID PRN (Reason: abdominal distention) Citrucel 500 mg tablet 500 mg PO DAILY Qty: 90 2RF Rx Instructions: take it with full glass of water Myrbetriq 25 mg tablet extended release 24 hr 25 mg PO DAILY 90 Days Qty: 90 2RF gabapentin 100 mg capsule 100 mg PO BEDTIME 30 Days Qty: 30 6RF ibuprofen 800 mg tablet 800 mg PO Q8H PRN (Reason: pain) 30 Days Qty: 90 0RF bisacodyl [Dulcolax (bisacodyl)] 5 mg tablet,delayed release (DR/EC) 10 mg PO BEDTIME Qty: 180 4RF Held aspirin 81 mg tablet,delayed release (DR/EC) 81 mg PO DAILY 90 Days Qty: 90 3RF Hold Instructions: Resume on 12/28/24. Discharge Orders: Discharge Order (Routine); Ordered 12/22/24 Ordered By: Gus Parisi Diet: Advance to usual diet Activity on Discharge: As tolerated Print Language: Yakut Activity Restrictions/Additional Instructions: You have recently undergone a surgical procedure called Hysteroscpy with dilatation and curettage/polypectomy. During this procedure the lining of the uterus was scraped. Personal Care: For two weeks - no intercourse, no tampons, no douching. It is best to avoid soaking in a tub or swimming as bacteria in the water can enter the uterus. Bleeding/Discharge: You may experience light vaginal bleeding after surgery. You may also note a watery or blood-tinged weepy discharge for several days after surgery. This usually subsides after several weeks. Diet: You may eat whatever you feel you can tolerate. You may experience residual nausea from the anesthesia or pain medication which may decrease your appetite. It is most important to remain hydrated and clear liquids are usually easily tolerated. Activity: You may resume your normal daily activities. You may find that you tired more easily as a result of the surgery and anesthesia. It is best to avoid strenuous activity or sports for about one week after surgery, although there are no specific restrictions on activity. Pain: You may experience some mild pelvic cramping after surgery. For most patients, Nonsteroidal anti-inflammatory drugs (NSAIDs) such as ibuprofen (Motrin or Advil) or Tylenol works best to control post-operative pain. Typically, ibuprofen (Motrin or Advil) 600 mg is recommended every 6 hours or Tylenol 650 mg every 6 hours as needed for pain for the first 24 to 48 hours after surgery. Do not take the ibuprofen on an empty stomach. Your cramping should resolve within a day or two. If you have cyclic pain without bleeding, contact the office for follow-up at [phone]. Follow-up: schedule a post-operative examination after this procedure in 2 weeks. Please call out office at [phone] if you experience any of the following: Temperature greater than 100.4 degrees Nausea and vomiting, unable to tolerate anything by mouth Vaginal bleeding, more than one pad every hour Foul-smelling vaginal discharge Progressively worsening pain Care Plan Goals: Returned to check if noted to have dizziness worsening abdominal pain nausea vomiting, high-grade fever Hold aspirin for 5 days Minimize use of ibuprofen use Tylenol for mild pain Health Concerns: Continue all home medications as before Plan of Treatment: Follow-up with Dr. Parisi in 1 week Assessment: As above
[2024-12-23 14:22] LABS: MANUAL DIFF FLAG NO
[2024-12-23 14:57] LABS: Basophils Absolute Auto 0.1 X10*3/uL (0.0-0.2); Basophils Percent Auto 0.5 % (0-2); Eosinophils Percent Auto 0.4 % (0-4); Hematocrit 31.7 % (37.0-47.0); Hemoglobin 10.3 g/dl (12.0-16.0); Imm Gran Abs Auto 0.04 X10*3/uL (0.00-0.03); Imm Gran Pct Auto 0.4 % (0.0-0.4); Lymphocytes Absolute Auto 1.8 X10*3/uL (1.2-4.9); Lymphocytes Percent Auto 17.2 % (20-40); Mean Corpuscular HGB Conc 32.5 g/dl (31.0-35.0); Mean Corpuscular Hemoglobin 29.6 pg (27.0-33.0); Mean Corpuscular Volume 91.1 fL (80.0-98.0); Mean Platelet Volume 11.5 fL (9.4-12.3); Monocytes Absolute Auto 0.9 X10*3/uL (0.1-1.2); Monocytes Percent Auto 8.4 % (2-11); Neutrophils Absolute Auto 7.8 x10*3/uL (2.0-8.3); Neutrophils Percent Auto 73.1 % (45-73); Platelet Count 269 X10*3/uL (160-400); Red Blood Count 3.48 X10*6/uL (4.20-5.50); Red Cell Distribution Width 13.2 % (11.0-16.0); White Blood Count 10.7 X10*3/uL (4.8-10.8)
== END 2024-12-23 15:47 | disposition home or self-care (01) ==
LOC: HO.S3 20:08 → HO.IMC 20:49
PROVIDERS: Obstetrics & Gynecology; Admitting Provider Internal Medicine; PCP Internal Medicine; Visit Provider Hospitalist
PROC: 0UDB8ZZ Extraction of Endometrium, Via Natural or Artificial Opening Endoscopic (ICD-10-PCS; CPT 58558; principal; 2024-12-22 12:30)
DX: G89.18 Other acute postprocedural pain (principal); N84.0 Polyp of corpus uteri; R07.9 Chest pain, unspecified; I25.2 Old myocardial infarction; I10 Essential (primary) hypertension; F41.9 Anxiety disorder, unspecified; E78.5 Hyperlipidemia, unspecified; R11.10 Vomiting, unspecified; D64.9 Anemia, unspecified; Z79.899 Other long term (current) drug therapy
CPT/HCPCS: 58558; 36415; 74177; 80053; 80061; 84443; 84484; 85014; 85018; 85025; 85027; 86850; 86900; 86901; 86923; 88305; 93005; 99222; 99499; J0131; J1100; J1650; J1885; J2003; J2060; J2250; J2405; J2704; J3010; Q9967

== ENCOUNTER → 2024-12-22 19:34 | Outpatient (BNV) | payer OTHER, SELFPAY | PROVIDERS: Admitting Provider Internal Medicine; PCP Internal Medicine; Visit Provider Internal Medicine | DX: R07.9 Chest pain, unspecified (principal); G89.18 Other acute postprocedural pain | CPT/HCPCS: 99222; 99239 ==

== ENCOUNTER 2024-12-29 14:19 | Outpatient (AMB) | payer OTHER, SELFPAY ==
--- NOTE | 2024-12-29 14:28 | A.OFFPC_ITS ---
Vital Signs 12/29/24 14:29 Height 5 ft 1 in Weight 181 lb BMI 34.2 BP 120/80 Blood Pressure Location Lt brachial Position Sitting Pulse 72 Pulse Source Pulse Oximeter Pulse Oximetry (%) 97 Oxygen Delivery Method Room Air Intake Visit Reasons: [place] [facility] [place] chest pain Intake Note: Visit Reason: TCM Intake Note: Patient is here for hospital discharge follow up. Patient was discharged from Data Center Technician Required: No Data Center Technician Name: Beth Thompson PA-C Information Interpreted: non-clinical & clinical Oral Pathologist: Not Required per policy Accompanied by: Self / Same As Patient Allergies Penicillins Allergy (Intermediate, Verified 12/29/24 14:47) DIZZINESS, RASH tramadol [TRAMADOL] Allergy (Intermediate, Verified 12/29/24 14:47) NAUSEA & VOMITING egg [Egg] Adverse Reaction (Intermediate, Verified 12/29/24 14:47) NAUSEA & VOMITING morphine Adverse Reaction (Intermediate, Verified 12/29/24 14:47) Chest Pain oxycodone Adverse Reaction (Verified 12/29/24 14:47) Dizziness FANY DRINK Allergy (Intermediate, Uncoded 12/29/24 14:47) NAUSEA & VOMITING Medication List - Last Reconciled 12/29/24 by Beth Thompson PA-C acetaminophen 500 mg PO Q6H PRN amlodipine 5 mg PO DAILY aspirin 81 mg PO DAILY 90 days atenolol 50 mg PO DAILY atorvastatin 20 mg PO BEDTIME 90 days bisacodyl (Dulcolax (bisacodyl)) 10 mg (2 x 5 mg) PO BEDTIME blood pressure test kit-large (Advocate Blood Pressure Monitor kit) As directed buspirone 10 mg PO BID 90 days calcium carbonate-vitamin D3 500 mg-10 mcg (400 unit) (Oyster Shell Calcium- Vitamin D3) 1 tab PO DAILY 90 days docusate sodium 100 mg PO BEDTIME gabapentin 100 mg PO BEDTIME 30 days ibuprofen 800 mg PO Q8H PRN 30 days lidocaine 5% (Lidoderm) 1 patch topical DAILY PRN MDD remove after 12 hours losartan 25 mg PO DAILY 90 days methylcellulose (laxative) (Citrucel) 500 mg PO DAILY metronidazole 500 mg PO BID 7 days mirabegron ER (Myrbetriq) 25 mg PO DAILY 90 days nebulizers (AeroEclipse II Nebulizer) As directed pantoprazole 40 mg PO BID@0630,1630 pioglitazone 15 mg PO DAILY sennosides (senna) 17.2 mg PO BEDTIME PRN simethicone (Gas Relief (simethicone)) 125 mg PO TID PRN walker As Directed Tobacco use date assessed: 11/09/24 Fall risk assessment: No Falls in past year Last assessed Fall Risk: 12/29/24 Dental Screening Dental Screen Date: 11/09/24 [facility] Medical History (Updated 12/29/24 @ 15:08 by Beth Thompson PA-C) Hemorrhoid Hospital discharge follow-up History of mammogram (~06/2024) PMB (postmenopausal bleeding) COVID-19 Impaired glucose regulation Dysuria Pelvic pain Burning with urination Fibroids Hiatal hernia Right shoulder pain Exposure to COVID-19 virus Mild depression TIA (transient ischemic attack) Asthma Back pain Abdominal pain Vaginal pruritus Vitamin D deficiency Left knee pain Left ankle pain Depression with anxiety Polyarthralgia Pure hypercholesterolemia Essential hypertension Surgical History History of tooth extraction History of colonoscopy History of cyst of breast History of hemicolectomy History of cholecystectomy History of appendectomy History of exploratory laparotomy Family History Father No problems noted. Mother Hypertension Stroke Diabetes Brother Leptospirosis Brother No problems noted. Family/Other FH: mental illness Son Hypertension Social History Household Members: Spouse Housing: Apartment Are you a primary nurse behavioral health care to a significant other at home: No Do you presently have visiting nurse or other home services: No Alcohol intake: never Patient Tobacco Use Status: Never used Tobacco e-Cigarette/Vaping Use: Never Used Second Hand Smoke Exposure: No service: No Current occupational status: disabled Sexual orientation: Straight/Heterosexual Gender identity: Female Cognitive needs: Yes Hearing needs: No Vision needs: Yes Female Reproductive History Menstrual Age of Menarche: 9 Questionnaire Thrive Questionnaire Date Thrive assessed: 12/23/24 JESSICA-7 AMB Questionnaire JESSICA-7 Date JESSICA - 7 assessed: 11/09/24 Source: Developed by Drs. Dagoberto Mercer, Adry Valentin, Néstor Garcia and colleagues, with an educational zheng from [employer]. Physical exam (Primary Care) Vital Signs: Last Vital Signs Pulse 72 12/29/24 14:29 BP 120/80 12/29/24 14:29 Pulse Ox 97 12/29/24 14:29 Oxygen Delivery Method Room Air 12/29/24 14:29 Vitals signs have been reviewed. BMI result Body Mass Index 34.2 Tobacco/Smoking Status: Tobacco use Status Tobacco use date assessed 11/09/24 12/29/24 14:36 Patient Tobacco Use Status Never used Tobacco 12/29/24 14:36 e-Cigarette/Vaping Use Never Used 12/29/24 14:36 Thrive Assessment: Date of Thrive Assessment Date Thrive assessed 12/23/24 12/29/24 14:36 Coding Level of Care Code TCM High MDM <= 7 Days Complex EM visit Add On G2211 Diagnoses Hospital discharge follow-up Z09 Chest pain, unspecified type R07.9 Chest pain type: unspecified Fibroids D21.9 Hemorrhoid K64.9 Assessment & Plan Assessment & Plan (1) Hospital discharge follow-up: Code(s): Z09 - Encounter for follow-up examination after completed treatment for conditions other than malignant neoplasm Category: Medical (2) Chest pain: Comment: acute coronary syndrome ruled out on 12/22/24-12/23/24 at [facility] Code(s): R07.9 - Chest pain, unspecified Category: Medical Qualifiers: Chest pain type: unspecified Qualified Code(s): R07.9 - Chest pain, unspecified Plan: Patient has not had any chest pain, dizziness, nausea, vomiting, weakness, shortness of breath or any other symptoms other than abdominal bloating, diarrhea and rectal pain since she was discharged from the hospital. Patient has restarted her aspirin yesterday 81 mg daily. Condition is chronic and stable continue to monitor. (3) Fibroids: Code(s): D21.9 - Benign neoplasm of connective and other soft tissue, unspecified Category: Medical Plan: patient being followed by obstetric anaesthetist. Patient has follow-up with Dr. Baptiste next week. Patient denies any vaginal bleeding or hematuria. She denies any other symptoms related to this. Condition is chronic and stable continue to monitor. (4) Hemorrhoid: Code(s): K64.9 - Unspecified hemorrhoids Category: Medical Plan: Patient with external hemorrhoids. No thrombosed. Not incarcerated. No surgical procedure indicated at this time. Will send home with topical Anusol. Condition is chronic and stable continue to monitor. Plan Plan Patient was informed and verbally consented to the use of an ambient scribe for clinic note documentation during this visit. 1. Leiomyoma Asymptomatic monitoring of leiomyoma inviting conservative oversight unless future symptom escalation. 2. Hyperlipidemia Continue atorvastatin regimen. Ensure routine lipid profile assessments align with clinical goals. 3. Anxiety Anxiety management ongoing with current prescriptions; further psychosocial supports to be evaluated upon patient assurance of symptom stability. 4. Hemorrhoid Topical cream prescribed; suggested lifestyle modifications to prevent exacerbation. 5. Hypertension Maintain current antihypertensive therapy; monitor blood pressure regularity. Reassess with primary care for any necessary adjustments. 6. Coronary Artery Disease, Status Post Myocardial Infarction over 10 years ago in [place] Continued monitoring and adherence to primary cardiac medications. Follow-up with fabrication specialist as needed. 7. Postmenopausal Bleeding Evaluate surgical outcomes at upcoming TAILOR HELPER upcoming appointment that is scheduled. No further bleeding noted post-hysteroscopy. 8. Postoperative Chest Pain No new chest pain symptoms postoperatively indicate symptomatic oversight only. Utilize Tylenol for pain control. 9. Diarrhea Conclude antibiotic relevance; supportive care promoted until symptom resolution. Discussion Notes In our latest consultation, I reviewed the patient's recent hospital course and post-discharge status, focusing on postoperative symptomatology and current health status. Specifically, we examined her complaints of abdominal fullness and rectal bleeding likely associated with hemorrhoids and diarrhea, presumably secondary to completed antibiotic therapy. She completed a week of azithromycin and Flagyl and withheld aspirin for five days due to hematoma concerns, now resumed post cessation window. The comprehensive plan considers the continuation of current pharmacological regimes for chronic conditions and addressed immediate postoperative concerns with reassurance and topical treatment for hemorrhoids. An upcoming follow-up with Dr. Baptiste is set to review hysteroscopy and polypectomy outcomes, ensuring vigilance for any noted progression of leiomyoma. She seems informed of return precautions should new or worsening symptoms arise, particularly relating to cardiovascular health indicated by past TX. Medications: New hydrocortisone 2.5% (Anusol-HC) 1 appl UT BID-QID PRN 30 grams 6RF hemorrhoids Patient Instructions: Patient Instructions - Continue regular medication regimen including aspirin, amlodipine, atenolol, atorvastatin, buspirone, gabapentin, losartan, pantoprazole, and pioglitazone. - Use topical hemorrhoid cream as directed. - Monitor for any new chest pain or recurrent postoperative symptoms. - Maintain a high-fiber diet and hydration to alleviate hemorrhoid discomfort and prevent constipation. - Attend scheduled follow-up with Dr. Baptiste and regular cardiovascular checks with Dr. Arias. - Seek prompt medical attention if experiencing worsening pain, nausea, dizziness, or persistent diarrhea. Scribe Plan - Not visible on output: Patient presents to the office for a TCM visit. Date of admission: 12/22/24 Date of discharge:12/23/24 This is a Follow-up from admission at [facility] HPI/Hospital Course/Discharge Summary: The patient is a 69-year-old female presenting for a follow-up for a TCM after a hysteroscopy, dilation and curettage, and polypectomy performed on December [address] Baptiste, being complicated by chest pain, nausea, vomiting in postop. Therefore Dr. Baptiste recommended that patient be admitted for cardiac monitoring. Patient was admitted to the [facility] cardiac monitoring floor on 12/22/2024 and then discharged on 12/23/2024. She experienced non-radiating chest pressure during recovery accompanied by shortness of breath, nausea, and vomiting. Test included 2- troponins and a EKG that revealed normal sinus rhythm with no acute ischemic changes. She also had a CT scan of her abdomen pelvis which showed a heterogeneous attenuation fluid in the pelvis, posterior to the uterus that was favored to be hemorrhage but no acute bleeding identified. Her hemoglobin was monitored closely and remained stable at 11 g / dL. Her chest pain had completely resolved by the next day. Therefore they discharged her home with instructions to follow-up with Dr. Parisi in a week. Along with instructions to follow-up with her primary care provider Dr. Estefany Coates. They also discharge her with Flagyl and azithromycin for 1 week to cover for post operative infection. She was also instructed to discontinue aspirin for 5 days and restart after the 5 days. At this time she reports she is having some rectal pain and when she wipes she has bright red blood. She is moving her bowels having some diarrhea. She is unsure if it is related to hemorrhoids. She denies any black or bloody stools or blood only in the toilet without stools. She reports since discharge she has mild abdominal fullness. She also denies any active chest pain, nausea, vomiting, fevers, dizziness, abdominal pain reports only abdominal bloating, dysuria, hematuria or any other symptoms complaints or concerns at this time. Existing conditions include CAD post-TX, hypertension, hyperlipidemia, anxiety, and leiomyoma with confirmed endometrial polyp removal. Discharged to/Current Location: Home Lives with: Diagnosis: chest pain acute coronary syndrome ruled out hematoma status post hysteroscope polypectomy Procedures performed:status post hysteroscope polypectomy New medications: patient was sent home with azithromycin and Flagyl which she has completed. Discontinued medications: Patient was instructed to discontinue aspirin for 5 days and restart after discontinuing for 5 days. Patient restarted aspirin yesterday. Change medications/dosing: No changes in medications at this time. Pending labs: No pending labs are indicated Pending diagnostic test: no pending diagnostic tests are indicated Any Follow-up Labs required? no follow-up labs required Any Follow-up Diagnostic test required? No follow-up diagnostic tests required at this time How are you feeling? Patient feels fine; she still feeling like her abdomen is inflamed and had some small rectal bleeding Are you in any pain or discomfort? only to rectum she reports burning sensation and fullness sensation of her abdomen Do you have any questions about your condition or discharge instructions? No Were you able to get your medications filled? Yes Do you have any questions about your medications? No Any referrals required? No Were you able to schedule your follow-up appointment? Yes If home health was ordered, have they contact you? No patient has VNA services twice a week and a STUDENT DEVELOPMENT DEAN 1 hour every day Any outpatient services, if so, are you scheduled? no Are there any additional resources like transportation you might need during her recovery? - VNA? already in place - STUDENT DEVELOPMENT DEAN? already in place - Meals on wheels? patient already receives meals from another place Educational need/resources: patient does not need any additional educational resources or needs What support system do you have? , STUDENT DEVELOPMENT DEAN, VNA Social History - Lives with ; no other occupants. - Does not require meals on wheels as alternate meal services are in place. - Receives VNA services twice a week and STUDENT DEVELOPMENT DEAN assistance for one hour daily. - Has a family-organized support system for additional aid. Review of Systems - Gastrointestinal: Reports abdominal fullness sensation and minor rectal bleeding; reports diarrhea. - Cardiovascular: Denies current chest pain; denies palpitations. Physical Exam Appearance: Alert. Oriented X3. No acute distress. Head: Normal external exam. Normocephalic. Atraumatic. Eyes: Pupils are equal, round, and reactive to light. Extraocular movements intact. Conjunctiva and sclera normal. Eyelids normal. Throat: Pharynx normal. Uvula midline. Moist mucous membranes. Neck: Normal inspection. Neck supple. Full range of motion. No adenopathy. Thyroid Normal. No meningeal signs. No neck mass noted. Cardiovascular: Normal heart rate and rhythm. Heart sound normal. No murmurs noted. Pulses normal throughout. Respiratory: No respiratory distress. Painless inspiration. Breath sounds normal. No wheezes/rales/rhonchi noted. Chest nontender. No accessory muscle usage noted or decreased air movement noted. Abdomen: Soft and nontender. Bowel sounds normal in all 4 quadrants. No distention noted. No organomegaly noted. 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 rectal exam patient noted to have external hemorrhoids not thrombosed or incarcerated. No other lesions or rashes are noted. Back: No costovertebral angle tenderness. Full range of motion noted. Skin: Skin warm and dry. Normal skin color. Normal skin turgor. No rashes/lesions/lacerations noted. Extremities: Extremities exhibit normal range of motion. Extremities nontender. Neuro: Oriented X 3. No motor deficit. No sensory deficit. Reflexes normal. Results - EKG: Normal sinus rhythm, no acute ischemic changes. - CT Scan: Heterogeneous attenuation fluid in the pelvis posterior to the uterus, favoring hemorrhage with no acute bleeding. - Hemoglobin: Stable at approximately 11 g/dL.
[2024-12-29 14:29] VITALS: BP 120/80; PULSE 72; O2SAT 97; BMI 34.2
--- OUTSIDE RECORDS SUMMARY | 2024-12-29 18:11 | XMS_ITS | Clinical Summary ---
Author Organization [facility] ity Address [address] [place] [address] Care Team Providers Care Copyright Manager Name Role Phone Unavailable Primary Care [...]
--- OUTSIDE RECORDS SUMMARY | 2024-12-29 18:11 | XMS_ITS | Clinical Summary ---
Author Organization [facility] Address [address] [place] [address] Care Team Providers Care Assembly Supervisor Name Role Phone Unavailable Primary Care Provider [...] powder TAKE DIRECTED BY GASTROENTEROLOGY DEPARTMENT AT [facility] 03/20/20 22 Active SENNA 8.6 mg tablet [...] Prophy 04/12/2023 04/10/2022 Hypertension Screening (#1) 09/19/2023 Dya-QULKU-05 (1 - 2023- season) 2024 Imm-Influenza (#1) [...] Most Recently Relevant to Health Maintenance Insurance [place] MEDICAID [place]ENT[place] Member Subscriber Plan / Payer (Ef fective 2022-Present) Name:Ximena Lund Relation to Subscriber:Self Name:Ximena Lund Payer ID:[id number] Group ID:Not on file Type:Medicaid Address: [place] [id number] HEALTH SAFETY NET DENTAL - DENTAL HEALTH SAFETY NET DENTAL - DENTAL
--- OUTSIDE RECORDS SUMMARY | 2024-12-29 18:11 | XMS_ITS | Data Portability ---
Author Organization [place] [facility], Allergy Address [address] [place] [phone] Care Team Providers Care Oracle Engineer Name Role Phone CRUZ GONZALEZ Primary Care Provider [phone] Assessment No assessment recorded. Plan of Treatment [...] Address Organization Details Recorded Time Chronic hoarseness [id number] Active 2023 ILEAAN KULKARNI MD [address] [place] [address], [phone], [facility] - [facility] 4 13:27:44 Gastroesoph ageal reflux disease without esophagitis [id number] Active 2023 ILEANA KULKARNI MD [address] [place] [address], [phone], [facility] - [facility] 4 13:30:14 Problem Notes None recorded. Procedures Surgical History Date Name Laterality Status Provider Name and Address Organization Details Recorded Time 05/20/20 24 Fiberoptic Laryngoscopy (Comprehensive) completed ILEANA KULKARNI MD [address] [place] [address], [place], [phone], [facility] - [facility] 05/27/2024 13:27:36 Imaging Results None recorded. Procedure [...] Updated DateTime 05/20/2024 157.48 cm 33.6 kg/m2 74888.2 g Toyin Cartagena [facility] 05/20/2024 13:57:06 Social History None recorded. Functional Status None recorded. Mental Status None recorded. Family History Nothing Reported. Medical History Condition Response Hypertension Y Asthma Y Gynecological HistoryNo gynecological history recorded. Obstetrics History GPAL:G 0 P 0 0 0 0 Past Encounters Encounter ID Performer Location Encounter Start Date Encounter Closed Date Diagnosis/Indication Diagnosis SNOMED-CT Code Diagnosis ICD10 Code Diagnosis Note [id number] ILEANA KULKARNI MD [facility] [address] [phone] 05/20/2024 13:04:07 05/20/2024 16:05:43 Chronic hoarseness 6628165497 105 R49.0 68-year-ol d female with a [...] future. Gastroesop hageal reflux disease without esophagitis 753361262 K21.9 Health Concerns Section Related Observation LastModified by Organization Detai ls LastModified Time None Recorded Concern Status LastModified by Organization Details LastModified Time None Recorded Advance Directives Directive None Recorded Payers Encounter Date Sequence Insurance Name Policy Number Policy Humphrey Covered Member ID Humphrey Member ID Guarantor Name 05/20/2024 1 [facility] - DOS ON OR AFTER 2023 - [employer] OPT[employer] (MEDICARE REPLACEMENT/AD VANTAGE - HMO) Reji Cano [id number] Reji Cano Notes Date Note Type Note Provider Name and Address Organization Details Recorded Time 05/20/2024 text/html 68 yo F presents today for hoarseness. Has reflux on omeprazole. Has DM. Has asthma. Voice today is hoarse. Mild sore throat. No trouble swallowing. No otalgia. ILEANA KULKARNI MD [address] [place] [address], [phone], [place] - [facility] 05/27/2024 13:31:24 OBGyn Episode No OBEpisode recorded.
--- OUTSIDE RECORDS SUMMARY | 2024-12-29 18:11 | XMS_ITS | Data Portability ---
Author Organization [facility] [place] [facility] Address [address] [place] [phone] Care Team Providers Care Regional Sales Director Name Role Phone [facility] Referring Provider [phone] Assessment Encounter Date Assessment Date Assessment LastModified by Organization Details LastModified Time 08/26/2023 08/26/2023 I provided real -time medical direction via phone for this encounter, and was available for additional phone based assistance as needed. I have reviewed and agree with the Assessment and Plan as documented by the Director Of Customer Acquisition 67-year-old female is seen for several days of cough productive clear sputum. No fevers. No shortness of breath. No chest pain. Covid [id number] testing negative. Given symptoms greater than five [...] Tessalon Perles 100 mg capsule 2022 023 [id number], [address] [place], [address], 3 11:33:30 Patient TargetsNo targets recorded. Patient InstructionsNo instructions recorded. Reason for Referral None Reported. Medical Equipment None Reported. Allergies Allergen ID Allergen Name Allergen Category Reaction Reaction Severity Criticality Documentation Date Start Date Code Code System Note Provider Name and Address Organization Details Recorded Time 1791 morphine medicatio n Not available Not available Not available 08/16/2024 7052 RxNorm Not Available [facility] - production 4 03:54:51 9364 Product containin g penicilli n (product) medicatio n Not available Not available Not available 08/16/2024 49993 8001 SNOMED Not Available [facility] - production [...] SNOMED-CT Code Diagnosis ICD10 Code Diagnosis Note [id number] Noam Lua MD [facility] - [facility] [address] [place] [phone] 08/26/2023 11:31:29 10/24/2023 16:07:44 Cough 15290148 R05.9 Health Concerns Section Related Observation LastModified by Organization Detai ls LastModified Time None Recorded Concern Status LastModified by Organization Details LastModified Time None Recorded Advance Directives Directive None Recorded Payers Encounter Date Sequence Insurance Name Policy Number Policy Humphrey Covered Member ID Humphrey Member ID Guarantor Name 08/26/2023 1 [facility] - DOS ON OR AFTER 2023 - DUAL ELIGIBLE - [employer] OPTIONS AND ONE CARE (MEDICARE REPLACEMENT/ADV ANTAGE - HMO) Ximena Cano [id number] Ximena Cano Notes Date Note Type Note [...] .................. .................. .................. .................. ............... Director Of Customer Acquisition Note From Scotty Rose: Patient reports eight days of productive cough with clear phlegm. Patient denies difficulty breathing, but states that the coughing is causing her back to hurt. Denies chest pain or changes in vision. Breath sounds clear in all mazariegos. [facility] [place]: prescription for Tessalon pearls at patient? s pharmacy of choice was made. Red flags covered with patient regarding symptoms and medication. POC Covid swab negative Director Of Customer Acquisition Allergies: Morphine, Penicillin .................. .................. .................. .................. .................. .................. .................. ............... Disposition: Fulfilled Noam Lua MD [address] [place] [address],[address], [place], [phone], [facility] JOANNA CHING 10/08/2023 12:32:44 OBGyn Episode No OBEpisode recorded.
== END 2024-12-29 14:58 | disposition home or self-care (01) ==
LOC: HO.HMCH 14:19
PROVIDERS: PCP Internal Medicine; Visit Provider Physician Assistant Medical
DX: R07.9 Chest pain, unspecified (principal); Z09 Encounter for follow-up examination after completed treatment for conditions other than malignant neoplasm; D21.9 Benign neoplasm of connective and other soft tissue, unspecified; K64.9 Unspecified hemorrhoids

== ENCOUNTER → 2024-12-29 14:19 | Outpatient (BNVA) | payer OTHER, SELFPAY | PROVIDERS: PCP Internal Medicine; Visit Provider Physician Assistant Medical | DX: Z09 Encounter for follow-up examination after completed treatment for conditions other than malignant neoplasm (principal); R07.9 Chest pain, unspecified; D21.9 Benign neoplasm of connective and other soft tissue, unspecified; K64.9 Unspecified hemorrhoids | CPT/HCPCS: 99496 ==

== ENCOUNTER 2025-01-04 09:17 | Outpatient (AMB) | payer OTHER, SELFPAY ==
[2025-01-04 09:21] VITALS: BMI 34.2
--- NOTE | 2025-01-04 09:21 | MHC.OFFVIS ---
Vital Signs 01/04/25 09:21 Height 5 ft 1 in Weight 181 lb BMI 34.2 Intake Visit Reasons: post op Grounds Maintenance Worker Required: Yes Grounds Maintenance Worker Language: Glass Production Machine Operator Services: Grounds Maintenance Worker Present (in person) Grounds Maintenance Worker Name: Iraida HERNANDEZ Information Interpreted: non-clinical & clinical Accompanied by: Self / Same As Patient Allergies Penicillins Allergy (Intermediate, Verified 01/04/25 09:22) DIZZINESS, RASH tramadol [TRAMADOL] Allergy (Intermediate, Verified 01/04/25 09:22) NAUSEA & VOMITING egg [Egg] Adverse Reaction (Intermediate, Verified 01/04/25 09:22) NAUSEA & VOMITING morphine Adverse Reaction (Intermediate, Verified 01/04/25 09:22) Chest Pain oxycodone Adverse Reaction (Verified 01/04/25 09:22) Dizziness FANY DRINK Allergy (Intermediate, Uncoded 01/04/25 09:22) NAUSEA & VOMITING Post menopausal: Yes HPI Comments Details: The patient is presenting post hysteroscopy D&C no complaints minimal vaginal bleeding no feverishness chills or abdominal pain. The pathology showed the following: A. Endometrium, polypectomy: Fragments of endometrial polyp and prominent smooth muscle; no atypia identified. B. Endometrium, curettage: - Superficial fragments of inactive endometrium. - Small fragment of endometrial polyp. - No atypia identified. Comment: The prominent smooth muscle in part A may represent a component of leiomyoma in addition to the endometrial polyp. The patient developed pelvic hematoma postoperatively was admitted overnight with observation and serial H and H which were stable and was discharged home did well afterwards went to the emergency room at [facility] on 12/31 where workup was done CT scan was within normal and H&H showed mild anemia, no records available but the patient was discharged home. The patient's since then has been doing well with no complaints no fever or chills no abdominal pain no nausea or vomiting or vaginal bleeding. [facility] Medical History Hemorrhoid Hospital discharge follow-up History of mammogram (~06/2024) PMB (postmenopausal bleeding) COVID-19 Impaired glucose regulation Dysuria Pelvic pain Burning with urination Fibroids Hiatal hernia Right shoulder pain Exposure to COVID-19 virus Mild depression TIA (transient ischemic attack) Asthma Back pain Abdominal pain Vaginal pruritus Vitamin D deficiency Left knee pain Left ankle pain Depression with anxiety Polyarthralgia Pure hypercholesterolemia Essential hypertension Surgical History History of tooth extraction History of colonoscopy History of cyst of breast History of hemicolectomy History of cholecystectomy History of appendectomy History of exploratory laparotomy Family History Father No problems noted. Mother Hypertension Stroke Diabetes Brother Leptospirosis Brother No problems noted. Family/Other FH: mental illness Son Hypertension Social History Household Members: Spouse Housing: Apartment Are you a primary healthcare market consultant to a significant other at home: No Do you presently have visiting nurse or other home services: No Alcohol intake: never Patient Tobacco Use Status: Never used Tobacco e-Cigarette/Vaping Use: Never Used Second Hand Smoke Exposure: No service: No Current occupational status: disabled Sexual orientation: Straight/Heterosexual Gender identity: Female Cognitive needs: Yes Hearing needs: No Vision needs: Yes Female Reproductive History Menstrual Age of Menarche: 9 Physical Exam Vital Signs: BMI result Body Mass Index 34.2 Assessment & Plan Assessment & Plan (1) Uterine fibroid: Comment: Growing in size Code(s): D25.9 - Leiomyoma of uterus, unspecified Category: Medical Qualifiers: Uterine leiomyoma location: unspecified location Qualified Code(s): D25.9 - Leiomyoma of uterus, unspecified Plan: Discussed with the patient the findings on pelvic ultrasound & the risk of myosarcoma; in addition reviewed with the patient that malignancy and pre malignancy cannot be ruled out without hysterectomy for pathological evaluation ; furthermore, explained to the patient the limitation of pelvic ultrasound and endometrial biopsy in the setting. Discussed with the patient the options of treatment including expectant management versus hysterectomy; the pros and cons, risks benefits of each approach were discussed with the patient including the fact that in cases of myosarcoma, surgical treatment can lead to early diagnosis and positively affects the prognosis; after further discussion, the patient decided to proceed with expectant management. Will repeat pelvic ultrasound periodically. Instructions given to patient to call in case any of the following occurs: pressure symptoms, abnormal uterine bleeding, pelvic pain; and to schedule a six-months pelvic ultrasound (order placed) and a follow-up appointment . All questions answered, the patient verbalized understanding and agreed with the plan . (2) PMB (postmenopausal bleeding): Code(s): N95.0 - Postmenopausal bleeding Category: Medical Plan: Discussed with the patient the results of the pathology. Discussed with the patient the sensitivity, specificity, positive and negative predictive value in detecting endometrial pathology including but not limited to endometrial hyperplasia, cancer and other pathology; instructed the patient to call in case vaginal bleeding recurs, the next step will be to proceed with further endometrial sampling evaluation to rule out endometrial pathology. All questions answered and the patient verbalized understanding and agreed with the plan. Orders: Orders US pelvic and transvaginal 3 Months D25.9 - Leiomyoma of uterus, unspecified Coding Level of Care Code Est Pt Level 3 (36972) Diagnoses Uterine leiomyoma, unspecified location D25.9 Uterine leiomyoma location: unspecified location PMB (postmenopausal bleeding) N95.0
--- OUTSIDE RECORDS SUMMARY | 2025-01-04 10:18 | XMS_ITS | Clinical Summary ---
Author Organization [facility] Address [address] [place] [address] Care Team Providers Care Athletic Field Custodian Name Role Phone Unavailable Primary Care Provider [...] powder TAKE DIRECTED BY GASTROENTEROLOGY DEPARTMENT AT [facility] 03/20/20 22 Active SENNA 8.6 mg tablet [...] Last Done Comments Dental Perio Charting 1955 Hepatitis C Screening 1955 Lipid Screening [...] Prophy 04/12/2023 04/10/2022 Hypertension Screening (#1) 09/19/2023 [id number] ( - season) 2024 Imm-Influenza (#1) 2024 Alcohol and [...] Most Recently Relevant to Health Maintenance Insurance [place] Member Subscriber Plan / Payer (Ef fective 2022-Present) Name:Ximena Lund Relation to Subscriber:Self Name:Ximena Lund Payer ID:[id number] Group ID:Not on file Type:Medicaid Address: [place] [id number] [place] [id number] HEALTH SAFETY NET DENTAL - DENTAL HEALTH SAFETY NET DENTAL - DENTAL
--- OUTSIDE RECORDS SUMMARY | 2025-01-04 10:18 | XMS_ITS | Data Portability ---
Author Organization [employer] [facility] [employer] Address [address] [place] [id number] Care Team Providers Care Communications Strategist Name Role Phone [facility] Referring Provider Assessment Encounter Date Assessment Date Assessment LastModified by Organization Details LastModified Time 08/26/2023 08/26/2023 I provided real -time medical direction via phone for this encounter, and was available for additional phone based assistance as needed. I have reviewed and agree with the Assessment and Plan as documented by the Adzing And Boring Machine Helper 67-year-old female is seen for several days of cough productive clear sputum. No fevers. No shortness of breath. No chest pain. Covid ayizt-ah-eudy testing negative. Given symptoms greater than five [...] Tessalon Perles 100 mg capsule 2022 023 [facility] #[id number], [address] [place], [address], 3 11:33:30 Patient TargetsNo targets recorded. Patient InstructionsNo instructions recorded. Reason for Referral None Reported. Medical Equipment None Reported. Allergies Allergen ID Allergen Name Allergen Category Reaction Reaction Severity Criticality Documentation Date Start Date Code Code System Note Provider Name and Address Organization Details Recorded Time 9159 morphine medicatio n Not available Not available Not available 08/16/2024 7052 RxNorm Not Available [facility] - production 4 03:54:51 9364 Product containin g penicilli n (product) medicatio n Not available Not available Not available 08/16/2024 60024 8001 SNOMED Not Available [facility] - production [...] SNOMED-CT Code Diagnosis ICD10 Code Diagnosis Note [id number] Noam Lua MD [facility] - [facility] [address] [place] [phone] 08/26/2023 11:31:29 10/24/2023 16:07:44 Cough 26112317 R05.9 Health Concerns Section Related Observation LastModified by Organization Detai ls LastModified Time None Recorded Concern Status LastModified by Organization Details LastModified Time None Recorded Advance Directives Directive None Recorded Payers Encounter Date Sequence Insurance Name Policy Number Policy Humphrey Covered Member ID Humphrey Member ID Guarantor Name 08/26/2023 1 [facility] - DOS ON OR AFTER 2023 - DUAL ELIGIBLE - [employer] OPTIONS AND ONE CARE (MEDICARE REPLACEMENT/ADV ANTAGE - HMO) Ximena Cano [id number] Ximena Cano Notes Date Note Type Note [...] .................. .................. .................. .................. .................. .................. ............... Adzing And Boring Machine Helper Note From Scotty Rose: Patient reports eight days of productive cough with clear phlegm. Patient denies difficulty breathing, but states that the coughing is causing her back to hurt. Denies chest pain or changes in vision. Breath sounds clear in all mazariegos. [facility] contacted: prescription for Tessalon pearls at patient? s pharmacy of choice was made. Red flags covered with patient regarding symptoms and medication. POC Covid swab negative Adzing And Boring Machine Helper Allergies: Morphine, Penicillin .................. .................. .................. .................. .................. .................. .................. ............... Disposition: Fulfilled Noam Lua MD [address] [place] [address],[address], [place], [address], [facility] - JOANNA CHING 10/08/2023 12:32:44 OBGyn Episode No OBEpisode recorded.
--- OUTSIDE RECORDS SUMMARY | 2025-01-04 10:18 | XMS_ITS | Data Portability ---
Author Organization [place] - [facility], Allergy Address [address] [place] [id number] Care Team Providers Care Lunch Truck Operator Name Role Phone CRUZ GONZALEZ Primary Care Provider [phone] Assessment No assessment recorded. Plan of Treatment [...] Address Organization Details Recorded Time Chronic hoarseness 7541461946150 Active 2023 ILEANA KULKARNI MD [address] [place] [address], [phone], [facility] - [facility] 4 13:27:44 Gastroesoph ageal reflux disease without esophagitis 741395843 Active 2023 ILEANA KULKARNI MD [address] [place] [address], [phone], [facility] - [facility] 4 13:30:14 Problem Notes None recorded. Procedures Surgical History Date Name Laterality Status Provider Name and Address Organization Details Recorded Time 05/20/20 24 Fiberoptic Laryngoscopy (Comprehensive) completed ILEANA KULKARNI MD [address] [place] [address], [place], [phone], [facility] - [facility] 05/27/2024 13:27:36 Imaging Results None recorded. [...] Updated DateTime 05/20/2024 157.48 cm 33.6 kg/m2 01205.2 g Toyin Cartagena [facility] 05/20/2024 13:57:06 Social History None recorded. Functional Status None recorded. Mental Status None recorded. Family History Nothing Reported. Medical History Condition Response Asthma Y Hypertension Y Gynecological HistoryNo gynecological history recorded. Obstetrics History GPAL:G 0 P 0 0 0 0 Past Encounters Encounter ID Performer Location Encounter Start Date Encounter Closed Date Diagnosis/Indication Diagnosis SNOMED-CT Code Diagnosis ICD10 Code Diagnosis Note [id number] ILEANA KULKARNI MD [facility] [address] [phone] 05/20/2024 13:04:07 05/20/2024 16:05:43 Chronic hoarseness 9982306610 105 R49.0 68-year-ol d female with a [...] future. Gastroesop hageal reflux disease without esophagitis 020394499 K21.9 Health Concerns Section Related Observation LastModified by Organization Detai ls LastModified Time None Recorded Concern Status LastModified by Organization Details LastModified Time None Recorded Advance Directives Directive None Recorded Payers Encounter Date Sequence Insurance Name Policy Number Policy Humphrey Covered Member ID Humphrey Member ID Guarantor Name 05/20/2024 1 [facility] - DOS ON OR AFTER 2023 - GROUP HOME OPTIONS (MEDICARE REPLACEMENT/AD VANTAGE - HMO) Reji Cano [id number] Reji Cano Notes Date Note Type Note Provider Name and Address Organization Details Recorded Time 05/20/2024 text/html 68 yo F presents today for hoarseness. Has reflux on omeprazole. Has DM. Has asthma. Voice today is hoarse. Mild sore throat. No trouble swallowing. No otalgia. ILEANA KULKARNI MD [address] [place] [address], [phone], [place] - [facility] 05/27/2024 13:31:24 OBGyn Episode No OBEpisode recorded.
--- OUTSIDE RECORDS SUMMARY | 2025-01-04 10:18 | XMS_ITS | Clinical Summary ---
Author Organization [facility] ity Address [address] [place] [address] Care Team Providers Care Outfitter Cabin Name Role Phone Unavailable Primary Care Provider [...]
== END 2025-01-04 09:49 | disposition home or self-care (01) ==
LOC: HO.HWS 09:17
PROVIDERS: PCP Internal Medicine; Visit Provider Obstetrics & Gynecology
DX: D25.9 Leiomyoma of uterus, unspecified (principal); N95.0 Postmenopausal bleeding
CPT/HCPCS: 99213

== ENCOUNTER → 2025-01-04 09:17 | Outpatient (BNVA) | payer OTHER, SELFPAY | PROVIDERS: PCP Internal Medicine; Visit Provider Obstetrics & Gynecology | DX: D25.9 Leiomyoma of uterus, unspecified (principal); N95.0 Postmenopausal bleeding | CPT/HCPCS: 99212 ==

== ENCOUNTER 2025-01-18 13:19 | Outpatient (AMB) | payer OTHER, SELFPAY ==
--- NOTE | 2025-01-18 13:28 | MHC.OFFVIS ---
Intake Visit Reasons: 6m/PVR Intake Note: Patient presents today for follow up visit on: Incontinence and ultrasound results Urology Medications:Myrbetriq Blood Thinner: Aspirin Allergy to Antibiotic:Penicillin, Oxycodone, Morphine PVR: 0ml Exterminator Termite Required: Yes Exterminator Termite Name: Karl [id number] Accompanied by: Self / Same As Patient Allergies Penicillins Allergy (Intermediate, Verified 01/18/25 13:54) DIZZINESS, RASH tramadol [TRAMADOL] Allergy (Intermediate, Verified 01/18/25 13:54) NAUSEA & VOMITING egg [Egg] Adverse Reaction (Intermediate, Verified 01/18/25 13:54) NAUSEA & VOMITING morphine Adverse Reaction (Intermediate, Verified 01/18/25 13:54) Chest Pain oxycodone Adverse Reaction (Verified 01/18/25 13:54) Dizziness FANY DRINK Allergy (Intermediate, Uncoded 01/18/25 13:54) NAUSEA & VOMITING Medication List - Last Reconciled 01/18/25 by MAGAN Ballesteros- acetaminophen 500 mg PO Q6H PRN amlodipine 5 mg PO DAILY aspirin 81 mg PO DAILY 90 days atenolol 50 mg PO DAILY atorvastatin 20 mg PO BEDTIME 90 days bisacodyl (Dulcolax (bisacodyl)) 10 mg (2 x 5 mg) PO BEDTIME blood pressure test kit-large ([facility] Blood Pressure Monitor kit) As directed buspirone 10 mg PO BID 90 days calcium carbonate-vitamin D3 500 mg-10 mcg (400 unit) (Oyster Shell Calcium-Vitamin D3) 1 tab PO DAILY 90 days docusate sodium 100 mg PO BEDTIME gabapentin 100 mg PO BEDTIME 30 days hydrocortisone 2.5% (Anusol-HC) 1 appl MI BID-QID PRN lidocaine 5% (Lidoderm) 1 patch topical DAILY PRN MDD remove after 12 hours methylcellulose (laxative) (Citrucel) 500 mg PO DAILY metronidazole 500 mg PO BID 7 days mirabegron ER (Myrbetriq) 25 mg PO DAILY 90 days pantoprazole 40 mg PO BID@0630,1630 pioglitazone 15 mg PO DAILY sennosides (senna) 17.2 mg PO BEDTIME PRN simethicone (Gas Relief (simethicone)) 125 mg PO TID PRN walker As Directed HPI Comments Details: Ximena is a 69-year-old [place]-speaking female patient of Dr. Bartlett who was accompanied by her PC at today's office visit. She has a past medical history of COVID-19, dysuria, diabetes, pelvic pain, fibroids, hiatal hernia, TIA, depression, asthma, chronic back pain, polyarthralgia, hypercholesteremia, and hypertension. She presents to the office today for follow-up of her lower urinary tract symptoms. In discussion with the patient today she reports to be doing and feeling well. She reports feeling Myrbetriq has been ineffective as episodes of urinary urgency and frequency have reoccurred. She reports typically she urinates approximately 15 times per day despite p.o. intake. She also reports episodes of nocturia up to 3-4 times per night. In office urinalysis results reviewed with the patient today. PVR 0 mL. Previous workup has included a retroperitoneal ultrasound 05/11 noting bilateral kidneys no hydronephrosis or renal calculi noted. 0.8 cm hypoechoic lesion in the right hepatic lobe. The bladder is well distended unremarkable. Bilateral ureteral jets are demonstrated. Pre void bladder volume is approximately 350 mL. Postvoid bladder volume is approximately 120 mL. Prominent uterus bulging/protruding into the bladder possibly related to fibroids could be evaluated with dictated pelvic ultrasound. She reports having followed up with aircraft maintenance technician. She denies hematuria,foul smelling urine, changes to urinary stream, flank pain, fever, and or chills. We discussed at length potential causes of lower urinary tract symptoms patient was experiencing as well as further treatment options and risks and benefits of these treatment options. We discussed bladder triggers/irritants. Also discussed obtaining bladder diary for further assessment evaluation. She otherwise denies any other issues or concerns at this time. [facility] Medical History Hemorrhoid Hospital discharge follow-up History of mammogram (~06/2024) PMB (postmenopausal bleeding) COVID-19 Impaired glucose regulation Dysuria Pelvic pain Burning with urination Fibroids Hiatal hernia Right shoulder pain Exposure to COVID-19 virus Mild depression TIA (transient ischemic attack) Asthma Back pain Abdominal pain Vaginal pruritus Vitamin D deficiency Left knee pain Left ankle pain Depression with anxiety Polyarthralgia Pure hypercholesterolemia Essential hypertension Surgical History History of tooth extraction History of colonoscopy History of cyst of breast History of hemicolectomy History of cholecystectomy History of appendectomy History of exploratory laparotomy Family History Father No problems noted. Mother Hypertension Stroke Diabetes Brother Leptospirosis Brother No problems noted. Family/Other FH: mental illness Son Hypertension Social History Household Members: Spouse Housing: Apartment Are you a primary rn progressive care to a significant other at home: No Do you presently have visiting nurse or other home services: No Alcohol intake: never Patient Tobacco Use Status: Never used Tobacco e-Cigarette/Vaping Use: Never Used Second Hand Smoke Exposure: No service: No Current occupational status: disabled Sexual orientation: Straight/Heterosexual Gender identity: Female Cognitive needs: Yes Hearing needs: No Vision needs: Yes Female Reproductive History Menstrual Age of Menarche: 9 Review of Systems Const Reports no additional complaints Eyes Reports no additional complaints ENT Reports no additional complaints Card Reports as per HPI Resp Reports as per HPI GI Reports as per HPI Reports as per HPI Musc Reports as per HPI Neuro Reports as per HPI Psych Reports as per HPI Endo Reports no additional complaints Bin/Lymph Reports no additional complaints Aller/Immun Reports no additional complaints Physical Exam Const General: cooperative, healthy appearing, comfortable, no acute distress, well developed, alert and awake Orientation/consciousness: patient oriented x3 Limitations: no limitations HEENT Head: Yes normal to inspection, Yes normocephalic and Yes atraumatic Ears: hearing grossly normal bilaterally Eyes General: appearance normal, both eyes and all related structures Neck Neck: Yes normal visual inspection and Yes trachea midline Chest Chest palpation & inspection: normal inspection of the chest Resp Effort & Inspection: normal respiratory effort and able to speak in complete sentences Cardio Rate: regular rate GI Inspection: Yes normal to inspection General: Yes no CVA tenderness Back/Spine/Pelvis Back: no CVA tenderness Skin General skin exam: no rashes or lesions noted Neuro General: patient oriented x3 Extrem General: Yes normal to inspection Psych Appearance: grossly normal and well kempt Mental Status: mental status grossly normal Speech and movement: Normal speech and movement present and Clear speech present Affect: normal affect Attitude: cooperative Thought process: Normal thought process present Thought content: Normal thought content present Insight: Fair insight present (Psych) Judgement: Fair judgement present (Psych) Results AMB Urinalysis, Automated UA Leukoctes 15 Merlin/uL Last Edit by Lyndsay Myers on 01/18/25 13:46 UA Nitrite Negative Last Edit by Lyndsay Myers on 01/18/25 13:46 UA Urobilinogen 0.2 mg/dL Last Edit by Lyndsay Myers on 01/18/25 13:46 UA Protein 15 mg/dL Last Edit by Lyndsay Myers on 01/18/25 13:46 UA pH 6.0 Last Edit by Lyndsay Myers on 01/18/25 13:46 UA Blood 0 Lincoln/uL Last Edit by Lyndsay Myers on 01/18/25 13:46 UA Specific [place] 1.015 Last Edit by Lyndsay Myers on 01/18/25 13:46 UA Ketone Positive Last Edit by Lyndsay Myers on 01/18/25 13:46 UA Bilirubin 0 mg/dL Last Edit by Lyndsay Myers on 01/18/25 13:46 UA Glucose 0 mg/dL Last Edit by Lyndsay Myers on 01/18/25 13:46 Results Reviewed Results Reviewed: Laboratory Last Values Urine pH (Auto) 6.0 01/18/25 13:31 Specific [place] (Auto) 1.015 01/18/25 13:31 Urine Protein (Auto) 15 mg/dL 01/18/25 13:31 Glucose (UA)(Auto) 0 mg/dL 01/18/25 13:31 Urine Ketones (Auto) Positive 01/18/25 13:31 Urine Blood (Auto) 0 [place]/uL 01/18/25 13:31 Urine Nitrite (Auto) Negative 01/18/25 13:31 Urine Bilirubin (Auto) 0 mg/dL 01/18/25 13:31 Urine Urobilinogen (Auto) 0.2 mg/dL 01/18/25 13:31 Leukocyte Esterase (Auto) 15 Merlin/uL 01/18/25 13:31 Assessment & Plan Assessment & Plan (1) Mixed stress and urge urinary incontinence: Code(s): N39.46 - Mixed incontinence Category: Medical (2) Lower urinary tract symptoms: Code(s): R39.9 - Unspecified symptoms and signs involving the genitourinary system Category: Medical Plan In office urinalysis results reviewed with the patient today; as noted above. PVR 0 mL. Stop Myrbetriq. Start Gemtesa as discussed and prescribed. We discussed obtaining bladder diary for further assessment evaluation. We discussed at length potential causes of lower urinary tract symptoms patient was experiencing as well as further treatment options and risks and benefits of these treatment options. We discussed potential near future in office cystoscopy and or urodynamics if symptoms continue and or worsen. We discussed bladder triggers/irritants. Follow-up in 1-3 months with PVR; or sooner with any issues, concerns, and or questions. Orders: Orders AMB Urinalysis Automated Today Z13.9 - Encounter for screening, unspecified AMB Post Void Residual by ultrasound Today R39.9 - Unspecified symptoms and signs involving the genitourinary system Medications: New vibegron (Gemtesa) 75 mg PO DAILY 30 days 30 tabs 3RF N32.81 - Overactive bladder Discontinued mirabegron ER (Myrbetriq) Discontinued Reason: Doctor's Order 25 mg PO DAILY 90 days 90 tabs 2RF N30.10 - Interstitial cystitis (chronic) without hematuria, N32.81 - Overactive bladder, R35.1 - Nocturia, R39.15 - Urgency of urination Patient Instructions: The patient had an opportunity to ask questions regarding the treatment plan. All questions were answered. Physical exam, labs, and imaging were discussed and reviewed in detail. As well as risks, benefits, and discussion of treatment choices. No major barriers to understanding were identified. The patient expressed understanding and agreement with the above treatment plan. The patient was made aware they should contact our office by phone for worsening of their current condition, the appearance of new symptoms, or with any questions or concerns. Compliance is encouraged with any medications and follow up testing that is ordered. It is a privilege to be allowed the opportunity to participate in? your urological care.? Again, if you have any questions or concerns If you have any questions or concerns please do not hesitate to contact me. The office is [phone]. This note is constructed using voice recognition software. While every effort has been made to ensure accuracy asphalt heater operator errors may have been included. Yours sincerely, TIEN Ballesteros Coding Level of Care Code Est Pt Level 4 (97982) Diagnoses Mixed stress and urge urinary incontinence N39.46 Lower urinary tract symptoms R39.9
--- OUTSIDE RECORDS SUMMARY | 2025-01-18 15:56 | XMS_ITS | Clinical Summary ---
Author Organization [facility] Address [address] [place] [address] Care Team Providers Care Gas Analyst Name Role Phone Unavailable Primary Care Provider [...] powder TAKE DIRECTED BY GASTROENTEROLOGY DEPARTMENT AT [facility] 03/20/20 22 Active SENNA 8.6 mg [...] Prophy 04/12/2023 04/10/2022 Hypertension Screening (#1) 09/19/2023 [id number] ( - season) 2024 Imm-Influenza (#1) 2024 [...] Most Recently Relevant to Health Maintenance Insurance [place] Member Subscriber Plan / Payer (Ef fective 2022-Present) Name:Ximena Lund Relation to Subscriber:Self Name:Ximena Lund Payer ID:[id number] Group ID:Not on file Type:Medicaid Address: [place] [id number] [place] [id number] HEALTH SAFETY NET DENTAL - DENTAL HEALTH SAFETY NET DENTAL - DENTAL
--- OUTSIDE RECORDS SUMMARY | 2025-01-18 15:56 | XMS_ITS | Clinical Summary ---
Author Organization [facility] ity Address [address] [place] [address] Care Team Providers Care Enterprise Data Architect Name Role Phone Unavailable Primary Care Provider [...] 2024 Influenza Vaccine (#1) 2024 RSV Immunization Adult Patie nts (1 - 1-dose 75+ series) 2028 HIB [...]
--- OUTSIDE RECORDS SUMMARY | 2025-01-18 15:56 | XMS_ITS | Data Portability ---
Author Organization [place] [facility], Allergy Address [address] [place] [phone] Care Team Providers Care Waitress Name Role Phone CRUZ GONZALEZ Primary Care [...] Address Organization Details Recorded Time Chronic hoarseness 3450494298026 Active 2023 ILEANA KULKARNI MD [address] [place] [address], [phone], [facility] - [facility] 4 13:27:44 Gastroesoph ageal reflux disease without esophagitis 039133934 Active 2023 ILEANA KULKARNI MD [address] [place] [address], [phone], [facility] - [facility] 4 13:30:14 Problem Notes None recorded. Procedures Surgical History Date Name Laterality Status Provider Name and Address Organization Details Recorded Time 05/20/20 24 Fiberoptic Laryngoscopy (Comprehensive) completed ILEANA KULKARNI MD [address] [place] [address], [place], [address], [facility] - [facility] 05/27/2024 13:27:36 Imaging Results None recorded. [...] Updated DateTime 05/20/2024 157.48 cm 33.6 kg/m2 93624.2 g Toyin Cartagena [facility] 05/20/2024 13:57:06 Social History None recorded. Functional Status None recorded. Mental Status None recorded. Family History Nothing Reported. Medical History Condition Response Hypertension Y Asthma Y Gynecological HistoryNo gynecological history recorded. Obstetrics History GPAL:G 0 P 0 0 0 0 Past Encounters Encounter ID Performer Location Encounter Start Date Encounter Closed Date Diagnosis/Indication Diagnosis SNOMED-CT Code Diagnosis ICD10 Code Diagnosis Note [id number] ILEANA KULKARNI MD [facility] [address] [phone] 05/20/2024 13:04:07 05/20/2024 16:05:43 Chronic hoarseness 2479395682 105 R49.0 68-year-ol d female with a [...] future. Gastroesop hageal reflux disease without esophagitis 519754115 K21.9 Health Concerns Section Related Observation LastModified by Organization Detai ls LastModified Time None Recorded Concern Status LastModified by Organization Details LastModified Time None Recorded Advance Directives Directive None Recorded Payers Encounter Date Sequence Insurance Name Policy Number Policy Humphrey Covered Member ID Humphrey Member ID Guarantor Name 05/20/2024 1 [facility] - DOS ON OR AFTER 2023 - PENITENTIARY OPTIONS (MEDICARE REPLACEMENT/AD VANTAGE - HMO) Reji Cano [id number] Reji Cano Notes Date Note Type Note Provider Name and Address Organization Details Recorded Time 05/20/2024 text/html 68 yo F presents today for hoarseness. Has reflux on omeprazole. Has DM. Has asthma. Voice today is hoarse. Mild sore throat. No trouble swallowing. No otalgia. ILEANA KULKARNI MD [address] [place] [address], [phone], [place] [facility] 05/27/2024 13:31:24 OBGyn Episode No OBEpisode recorded.
--- OUTSIDE RECORDS SUMMARY | 2025-01-18 15:57 | XMS_ITS | Data Portability ---
Author Organization [facility] Address [address] [place] [phone] Care Team Providers Care Upper Marker Name Role Phone [facility] Referring Provider [phone] Assessment Encounter Date Assessment Date Assessment LastModified by Organization Details LastModified Time 08/26/2023 08/26/2023 I provided real -time medical direction via phone for this encounter, and was available for additional phone based assistance as needed. I have reviewed and agree with the Assessment and Plan as documented by the Bridge Maintainer 67-year-old female is seen for several days of cough productive clear sputum. No fevers. No shortness of breath. No chest pain. Covid qlpcf-rt-bxqb testing negative. Given symptoms greater than five [...] Tessalon Perles 100 mg capsule 2022 023 [facility]/Pharmacy #[id number], [address] [place], [address], 3 11:33:30 Patient TargetsNo targets recorded. Patient InstructionsNo instructions recorded. Reason for Referral None Reported. Medical Equipment None Reported. Allergies Allergen ID Allergen Name Allergen Category Reaction Reaction Severity Criticality Documentation Date Start Date Code Code System Note Provider Name and Address Organization Details Recorded Time 1810 morphine medicatio n Not available Not available Not available 08/16/2024 7052 RxNorm Not Available [facility] - production 4 03:54:51 9364 Product containin g penicilli n (product) medicatio n Not available Not available Not available 08/16/2024 29568 8001 SNOMED Not Available [facility] - production [...] SNOMED-CT Code Diagnosis ICD10 Code Diagnosis Note [id number] Noam Lua MD [facility] - [facility] [address] [place] [phone] 08/26/2023 11:31:29 10/24/2023 16:07:44 Cough 59170766 R05.9 Health Concerns Section Related Observation LastModified by Organization Detai ls LastModified Time None Recorded Concern Status LastModified by Organization Details LastModified Time None Recorded Advance Directives Directive None Recorded Payers Encounter Date Sequence Insurance Name Policy Number Policy Humphrey Covered Member ID Humphrey Member ID Guarantor Name 08/26/2023 1 [facility] - DOS ON OR AFTER 2023 - DUAL ELIGIBLE - ALF OPTIONS AND ONE CARE (MEDICARE REPLACEMENT/ADV ANTAGE - HMO) Ximena Cano [id number] Ximena Cano Notes Date Note Type Note [...] .................. .................. .................. .................. .................. .................. ............... Bridge Maintainer Note From Scotty Rose: Patient reports eight days of productive cough with clear phlegm. Patient denies difficulty breathing, but states that the coughing is causing her back to hurt. Denies chest pain or changes in vision. Breath sounds clear in all mazariegos. [facility] contacted: prescription for Tessalon pearls at patient? s pharmacy of choice was made. Red flags covered with patient regarding symptoms and medication. POC Covid swab negative Bridge Maintainer Allergies: Morphine, Penicillin .................. .................. .................. .................. .................. .................. .................. ............... Disposition: Fulfilled Noam Lua MD [address] [place] [address],[address], [place], [phone], [facility] - JOANNA CHING 10/08/2023 12:32:44 OBGyn Episode No OBEpisode recorded.
== END 2025-01-18 13:53 | disposition home or self-care (01) ==
LOC: HO.HUSH 13:19
PROVIDERS: PCP Internal Medicine; Visit Provider Nurse Practitioner Family
DX: N39.46 Mixed incontinence (principal); R39.9 Unspecified symptoms and signs involving the genitourinary system; Z13.9 Encounter for screening, unspecified
CPT/HCPCS: 99214

== ENCOUNTER → 2025-01-18 13:19 | Outpatient (BNVA) | payer OTHER, SELFPAY | PROVIDERS: PCP Internal Medicine; Visit Provider Nurse Practitioner Family | DX: N39.46 Mixed incontinence (principal); R39.9 Unspecified symptoms and signs involving the genitourinary system | CPT/HCPCS: 81003; 99212 ==

== ENCOUNTER 2025-01-24 06:38 | Outpatient (REF) | payer OTHER, SELFPAY ==
--- NOTE | ~2025-01-24 | FL_ITS ---
EXAMINATION: FL GUIDANCE ONLY HISTORY: M53.3 - Sacrococcygeal disorders, not elsewhere classified COMPARISON: None available. TECHNIQUE: Fluoroscopy time: 11.6 seconds. Cumulative Dose: 4.7186 mGy. DAP: 1.2803 mGym2 Images: 2. FINDINGS: Images demonstrate a needle and contrast material in the region of the right SI joint. FL/FL guidance in treatment room IMPRESSION: Fluoroscopy during procedure. Please see procedure report for additional information. Electronically signed by: Dagoberto Carmona MD 01/24/2025 03:47 PM EDT
--- OUTSIDE RECORDS SUMMARY | 2025-01-24 06:41 | XMS_ITS | Clinical Summary ---
Author Organization [facility] ity Address [address] [place] [address] Care Team Providers Care Judo Teacher Name Role Phone Unavailable Primary Care Provider [...] age to complete this topic Meningococcal B Vaccine Aged Out No l onger eligible based on patient's age to complete this topic RSV Immunization Patients Un yisel 20 months Aged Out No longer eligible b ased on patient's age to complete this topic Varicella Vaccines Aged Out No longer eligible based on patient's age to complete this topic
--- OUTSIDE RECORDS SUMMARY | 2025-01-24 06:41 | XMS_ITS | Clinical Summary ---
Author Organization [facility] Address [address] [place] [address] Care Team Providers Care Pattern Clerk Name Role Phone Unavailable Primary Care [...] powder TAKE DIRECTED BY GASTROENTEROLOGY DEPARTMENT AT [facility] 03/20/20 22 Active SENNA 8.6 mg [...] Prophy 04/12/2023 04/10/2022 Hypertension Screening (#1) 09/19/2023 [id number] ( - season) 2024 Imm-Influenza (#1) 2024 [...] Most Recently Relevant to Health Maintenance Insurance [place]ENT[place] Member Subscriber Plan / Payer (Ef fective 2022-Present) Name:Ximena Lund Relation to Subscriber:Self Name:Ximena Lund Payer ID:[id number] Group ID:Not on file Type:Medicaid Address: [place] [id number] [place] [id number] HEALTH SAFETY NET DENTAL - DENTAL HEALTH SAFETY NET DENTAL - DENTAL
--- OUTSIDE RECORDS SUMMARY | 2025-01-24 06:42 | XMS_ITS | Data Portability ---
Author Organization [employer] [employer] Address [address] [place] [phone] Care Team Providers Care Clinical Rehabilitation Liaison Name Role Phone [facility] Referring Provider Assessment Encounter Date Assessment Date Assessment LastModified by Organization Details LastModified Time 08/26/2023 08/26/2023 I provided real -time medical direction via phone for this encounter, and was available for additional phone based assistance as needed. I have reviewed and agree with the Assessment and Plan as documented by the It Technical Specialist 67-year-old female is seen for several days of cough productive clear sputum. No fevers. No shortness of breath. No chest pain. Covid mmcjy-ci-kzmz testing negative. Given symptoms greater than five [...] Tessalon Perles 100 mg capsule 2022 023 [facility]/Pharmacy #[id number], [address] [place], [address], 3 11:33:30 Patient TargetsNo targets recorded. Patient InstructionsNo instructions recorded. Reason for Referral None Reported. Medical Equipment None Reported. Allergies Allergen ID Allergen Name Allergen Category Reaction Reaction Severity Criticality Documentation Date Start Date Code Code System Note Provider Name and Address Organization Details Recorded Time 2729 morphine medicatio n Not available Not available Not available 08/16/2024 7052 RxNorm Not Available [facility] - production 4 03:54:51 9364 Product containin g penicilli n (product) medicatio n Not available Not available Not available 08/16/2024 67700 8001 SNOMED Not Available [facility] - production [...] t Available levofloxacin 500 mg tablet TOME SUEJY TABLETA TODOS LOS D active Not Available [...] SNOMED-CT Code Diagnosis ICD10 Code Diagnosis Note [id number] Noam Lua MD [facility] - [facility] [address] [place] [phone] 08/26/2023 11:31:29 10/24/2023 16:07:44 Cough 21991453 R05.9 Health Concerns Section Related Observation LastModified by Organization Detai ls LastModified Time None Recorded Concern Status LastModified by Organization Details LastModified Time None Recorded Advance Directives Directive None Recorded Payers Encounter Date Sequence Insurance Name Policy Number Policy Humphrey Covered Member ID Humphrey Member ID Guarantor Name 08/26/2023 1 [facility] - DOS ON OR AFTER 2023 - DUAL ELIGIBLE - [facility] OPTIONS AND ONE CARE (MEDICARE REPLACEMENT/ADV ANTAGE - HMO) Ximena Cano [id number] Ximena Cano Notes Date Note Type Note [...] .................. .................. .................. .................. .................. .................. ............... It Technical Specialist Note From Scotty Rose: Patient reports eight days of productive cough with clear phlegm. Patient denies difficulty breathing, but states that the coughing is causing her back to hurt. Denies chest pain or changes in vision. Breath sounds clear in all mazariegos. [facility] contacted: prescription for Tessalon pearls at patient? s pharmacy of choice was made. Red flags covered with patient regarding symptoms and medication. POC Covid swab negative It Technical Specialist Allergies: Morphine, Penicillin .................. .................. .................. .................. .................. .................. .................. ............... Disposition: Fulfilled Noam Lua MD [address] [place] [address],[address], [place], [phone], [facility] JOANNA CHING 10/08/2023 12:32:44 OBGyn Episode No OBEpisode recorded.
--- OUTSIDE RECORDS SUMMARY | 2025-01-24 06:42 | XMS_ITS | Data Portability ---
Author Organization [place] - [facility], Allergy Address [address] [place] [phone] Care Team Providers Care Mds Coordinator Name Role Phone CRUZ GONZALEZ Primary Care [...] Address Organization Details Recorded Time Chronic hoarseness [id number] Active 2023 ILEANA KULKARNI MD [address] [place] [address], [phone], [facility] 4 13:27:44 Gastroesoph ageal reflux disease without esophagitis 721607253 Active 2023 ILEANA KULKARNI MD [address] [place] [address], [phone], [facility] - [facility] 4 13:30:14 Problem Notes None recorded. Procedures Surgical History Date Name Laterality Status Provider Name and Address Organization Details Recorded Time 05/20/20 24 Fiberoptic Laryngoscopy (Comprehensive) completed ILEANA KULKARNI MD [address] [place] [address], [place], [phone], [facility] - [facility] 05/27/2024 13:27:36 Imaging Results None recorded. [...] Updated DateTime 05/20/2024 157.48 cm 33.6 kg/m2 16235.2 g Toyin Cartagena [facility] 05/20/2024 13:57:06 Social History None recorded. Functional Status None recorded. Mental Status None recorded. Family History Nothing Reported. Medical History Condition Response Hypertension Y Asthma Y Gynecological HistoryNo gynecological history recorded. Obstetrics History GPAL:G 0 P 0 0 0 0 Past Encounters Encounter ID Performer Location Encounter Start Date Encounter Closed Date Diagnosis/Indication Diagnosis SNOMED-CT Code Diagnosis ICD10 Code Diagnosis Note [id number] ILEANA KULKARNI MD [facility] [address] [phone] 05/20/2024 13:04:07 05/20/2024 16:05:43 Chronic hoarseness 4032621025 105 R49.0 68-year-ol d female with a [...] future. Gastroesop hageal reflux disease without esophagitis 380720020 K21.9 Health Concerns Section Related Observation LastModified by Organization Detai ls LastModified Time None Recorded Concern Status LastModified by Organization Details LastModified Time None Recorded Advance Directives Directive None Recorded Payers Encounter Date Sequence Insurance Name Policy Number Policy Humphrey Covered Member ID Humphrey Member ID Guarantor Name 05/20/2024 1 [facility] - DOS ON OR AFTER 2023 - [employer] OPTIONS (MEDICARE REPLACEMENT/AD VANTAGE - HMO) Reji Cano [id number] Reji Cano Notes Date Note Type Note Provider Name and Address Organization Details Recorded Time 05/20/2024 text/html 68 yo F presents today for hoarseness. Has reflux on omeprazole. Has DM. Has asthma. Voice today is hoarse. Mild sore throat. No trouble swallowing. No otalgia. ILEANA KULKARNI MD [address] [place] [address], [phone], [place] [facility] 05/27/2024 13:31:24 OBGyn Episode No OBEpisode recorded.
== END 2025-01-24 06:39 | disposition home or self-care (01) ==
LOC: CF 06:38
PROVIDERS: Visit Provider Anesthesiology
DX: M53.3 Sacrococcygeal disorders, not elsewhere classified (principal)
CPT/HCPCS: 27096; J2003; J2795; Q9967

== ENCOUNTER 2025-01-24 15:03 | Outpatient (AMB) | payer OTHER, SELFPAY ==
[2025-01-24 15:11] VITALS: BP 131/59; PULSE 73; RESP 16; O2SAT 100
--- NOTE | 2025-01-24 15:11 | A.OFFVIS_ITS ---
Vital Signs 01/24/25 15:11 01/24/25 15:23 BP 131/59 L 114/51 L Blood Pressure Location Lt brachial Lt brachial Position Sitting Sitting Respiration 16 16 Pulse 73 73 Pulse Source Pulse Oximeter Pulse Oximeter Pulse Oximetry (%) 100 100 Oxygen Delivery Method Room Air Room Air Intake Visit Reasons: RIGHT DIAGNOSTIC SIJ INJECTION Voice And Data Technician Required: Yes Voice And Data Technician Name: Susana Allergies Penicillins Allergy (Intermediate, Verified 01/24/25 15:12) DIZZINESS, RASH tramadol [TRAMADOL] Allergy (Intermediate, Verified 01/24/25 15:12) NAUSEA & VOMITING egg [Egg] Adverse Reaction (Intermediate, Verified 01/24/25 15:12) NAUSEA & VOMITING morphine Adverse Reaction (Intermediate, Verified 01/24/25 15:12) Chest Pain oxycodone Adverse Reaction (Verified 01/24/25 15:12) Dizziness FANY DRINK Allergy (Intermediate, Uncoded 01/24/25 15:12) NAUSEA & VOMITING Medication List - Last Reconciled 01/24/25 by Loreto Doyle LPN acetaminophen 500 mg PO Q6H PRN amlodipine 5 mg PO DAILY aspirin 81 mg PO DAILY 90 days atenolol 50 mg PO DAILY atorvastatin 20 mg PO BEDTIME 90 days bisacodyl (Dulcolax (bisacodyl)) 10 mg (2 x 5 mg) PO BEDTIME blood pressure test kit-[facility] ([facility] Blood Pressure Monitor kit) As directed buspirone 10 mg PO BID 90 days calcium carbonate-vitamin D3 500 mg-10 mcg (400 unit) (Oyster Shell Calcium- Vitamin D3) 1 tab PO DAILY 90 days docusate sodium 100 mg PO BEDTIME gabapentin 100 mg PO BEDTIME 30 days hydrocortisone 2.5% (Anusol-HC) 1 appl ND BID-QID PRN lidocaine 5% (Lidoderm) 1 patch topical DAILY PRN MDD remove after 12 hours methylcellulose (laxative) (Citrucel) 500 mg PO DAILY metronidazole 500 mg PO BID 7 days pantoprazole 40 mg PO BID@0630,1630 pioglitazone 15 mg PO DAILY sennosides (senna) 17.2 mg PO BEDTIME PRN simethicone (Gas Relief (simethicone)) 125 mg PO TID PRN vibegron (Gemtesa) 75 mg PO DAILY 30 days walker As Directed [facility] Medical History Hemorrhoid Hospital discharge follow-up History of mammogram (~06/2024) PMB (postmenopausal bleeding) COVID-19 Impaired glucose regulation Dysuria Pelvic pain Burning with urination Fibroids Hiatal hernia Right shoulder pain Exposure to COVID-19 virus Mild depression TIA (transient ischemic attack) Asthma Back pain Abdominal pain Vaginal pruritus Vitamin D deficiency Left knee pain Left ankle pain Depression with anxiety Polyarthralgia Pure hypercholesterolemia Essential hypertension Surgical History History of tooth extraction History of colonoscopy History of cyst of breast History of hemicolectomy History of cholecystectomy History of appendectomy History of exploratory laparotomy Family History Father No problems noted. Mother Hypertension Stroke Diabetes Brother Leptospirosis Brother No problems noted. Family/Other FH: mental illness Son Hypertension Social History Household Members: Spouse Housing: Apartment Are you a primary health care sanitary technician to a significant other at home: No Do you presently have visiting nurse or other home services: No Alcohol intake: never Patient Tobacco Use Status: Never used Tobacco e-Cigarette/Vaping Use: Never Used Second Hand Smoke Exposure: No service: No Current occupational status: disabled Sexual orientation: Straight/Heterosexual Gender identity: Female Cognitive needs: Yes Hearing needs: No Vision needs: Yes Female Reproductive History Menstrual Age of Menarche: 9 Physical Exam Vital Signs: Last Vital Signs Pulse 73 01/24/25 15:23 Resp 16 01/24/25 15:23 BP 114/51 L 01/24/25 15:23 Pulse Ox 100 01/24/25 15:23 Oxygen Delivery Method Room Air 01/24/25 15:23 Assessment & Plan Assessment & Plan (1) Sacroiliac joint dysfunction of right side: Code(s): M53.3 - Sacrococcygeal disorders, not elsewhere classified Category: Medical (2) Sacroiliitis: Code(s): M46.1 - Sacroiliitis, not elsewhere classified Category: Medical Plan Right Sacroiliac joint injection diagnostic. Informed consent was thoroughly explained to the patient before the procedure.? The patient came to the operating room.?She was positioned prone on operating table with a pillow under her abdomen.? Time-out was performed delineating correct site and side of the procedure, nature of the injection, name and date of of the patient. The lower back and upper buttocks of the patient was prepped with ChloraPrep and draped with sterile utility towels.? C-arm was brought over the operating field and picture of right sacroiliac joint was demonstrated on the screen. Tilting machine contralateral left 20 degrees from the midline the anterior portion of the silhouette of the joint was superimposed on posterior portion of the silhouette of the joint. The skin was anesthetized with mixture of ropivacaine 0.5% and lidocaine 2% one-to-one slightly medial to the silhouette of the sacroiliac joint. 22 gauge 3-1/2 inch spinal needle was inserted through the skin wheal and advanced to the sacroiliac joint. When tip of the needle entered the sacroiliac joint injection of the contrast performed delineating arthrogram. After that 4 cc of ropivacaine 0.5% was injected into the joint. Upon completion of the injection needle was removed and sterile bandades were applied Patient tolerated the procedure well. Orders: Orders FL guidance in treatment room 01/24/25 M53.3 - Sacrococcygeal disorders, not elsewhere classified Coding Level of Care Code Procedure Only Diagnoses Sacroiliac joint dysfunction of right side M53.3 Sacroiliitis M46.1
[2025-01-24 15:23] VITALS: BP 114/51; PULSE 73; RESP 16; O2SAT 100
--- OUTSIDE RECORDS SUMMARY | 2025-01-24 18:07 | XMS_ITS | Clinical Summary ---
Author Organization [facility] Address [address] [place] [address] Care Team Providers Care Manager Testing Name Role Phone Unavailable Primary Care Provider [...] powder TAKE DIRECTED BY GASTROENTEROLOGY DEPARTMENT AT [facility] 03/20/20 22 Active SENNA 8.6 [...] Prophy 04/12/2023 04/10/2022 Hypertension Screening (#1) 09/19/2023 [id number] ( - season) 2024 Imm-Influenza (#1) 2024 [...] Most Recently Relevant to Health Maintenance Insurance [place] MED[place] Member Subscriber Plan / Payer (Ef fective 2022-Present) Name:Ximena Lund Relation to Subscriber:Self Name:Ximena Lund Payer ID:[id number] Group ID:Not on file Type:Medicaid Address: [place] [address] [place] [id number] HEALTH SAFETY NET DENTAL - DENTAL HEALTH SAFETY NET DENTAL - DENTAL
--- OUTSIDE RECORDS SUMMARY | 2025-01-24 18:07 | XMS_ITS | Clinical Summary ---
Author Organization [facility] it[facility] Address [address] [place] [address] Care Team Providers Care Product Management Internship Name Role Phone Unavailable Primary Care Provider [...]
== END 2025-01-24 15:25 | disposition home or self-care (01) ==
LOC: HO.PMCPRC 15:03
PROVIDERS: PCP Internal Medicine; Visit Provider Anesthesiology
DX: M53.3 Sacrococcygeal disorders, not elsewhere classified (principal); M46.1 Sacroiliitis, not elsewhere classified
CPT/HCPCS: 27096

== ENCOUNTER 2025-01-26 13:01 | Outpatient (AMB) | payer OTHER, SELFPAY ==
--- NOTE | 2025-01-26 13:00 | A.OFFVIS_ITS ---
Vital Signs 01/26/25 13:01 Height 5 ft 1 in Weight 184 lb 8 oz BMI 34.9 BP 141/63 H Blood Pressure Location Rt brachial Position Sitting Pulse 86 Pulse Source Pulse Oximeter Pulse Oximetry (%) 100 Oxygen Delivery Method Room Air Intake Visit Reasons: RIGHT DIAGNOSTIC SIJ INJECTION Patent Searcher Required: Yes Patent Searcher Language: Crime Scene Evidence Technician Services: Patent Searcher Present Patent Searcher Name: Arnold ([id number]) Allergies Penicillins Allergy (Intermediate, Verified 01/26/25 13:01) DIZZINESS, RASH tramadol [TRAMADOL] Allergy (Intermediate, Verified 01/26/25 13:01) NAUSEA & VOMITING egg [Egg] Adverse Reaction (Intermediate, Verified 01/26/25 13:01) NAUSEA & VOMITING morphine Adverse Reaction (Intermediate, Verified 01/26/25 13:01) Chest Pain oxycodone Adverse Reaction (Verified 01/26/25 13:) Dizziness FANY DRINK Allergy (Intermediate, Uncoded 01/26/25 13:) NAUSEA & VOMITING HPI Comments Details: Ximena is back in my office after diagnostic right sacroiliac joint injection. She reported pain aggravation after the procedure. Aborted only pain increasing to 7 to 8/10 after the procedure. She reports the sensation of squeezing in the area of the injection. Attention was attracted today to possibility of this patient is suffering from spondylosis of the lumbar spine. On physical exam loading test was positive. I offered the patient diagnostic medial branch block L3, L4, dorsal ramus L5 bilateral. However patient adamantly refused to go for the injection. I suggested that if she wants to continue treatment with medications only she could go to her primary care physician and requests medication for her pain. Prior: complains on pain across the lower back with radiation into the right lower extremity to the level of the cough but not below that level. She reports that her pain is most severe when she is lying down and walking for long period of time. She reports that her pain associated with burning sensation in the lower extremity. She reports that the pain started about 1 year ago however got exacerbated to very severe level about 1 month ago. She reports that she can not sleep normally can not move properly can not walk all of this aggravate her pain. She took Tylenol and Tylenol significantly alleviated her pain. She tried lidocaine patches with no help. She never had physical therapy for her pain. She reports that pain is aggravated by coughing and sneezing. [facility] Medical History Hemorrhoid Hospital discharge follow-up History of mammogram (~06/2024) PMB (postmenopausal bleeding) COVID-19 Impaired glucose regulation Dysuria Pelvic pain Burning with urination Fibroids Hiatal hernia Right shoulder pain Exposure to COVID-19 virus Mild depression TIA (transient ischemic attack) Asthma Back pain Abdominal pain Vaginal pruritus Vitamin D deficiency Left knee pain Left ankle pain Depression with anxiety Polyarthralgia Pure hypercholesterolemia Essential hypertension Surgical History History of tooth extraction History of colonoscopy History of cyst of breast History of hemicolectomy History of cholecystectomy History of appendectomy History of exploratory laparotomy Family History Father No problems noted. Mother Hypertension Stroke Diabetes Brother Leptospirosis Brother No problems noted. Family/Other FH: mental illness Son Hypertension Social History Household Members: Spouse Housing: Apartment Are you a primary skin care technician to a significant other at home: No Do you presently have visiting nurse or other home services: No Alcohol intake: never Patient Tobacco Use Status: Never used Tobacco e-Cigarette/Vaping Use: Never Used Second Hand Smoke Exposure: No service: No Current occupational status: disabled Sexual orientation: Straight/Heterosexual Gender identity: Female Cognitive needs: Yes Hearing needs: No Vision needs: Yes Female Reproductive History Menstrual Age of Menarche: 9 Review of Systems Const All systems reviewed & are unremarkable except as noted in HPI and below ENT Reports Normal hearing present Neuro Reports Normal hearing present, Denies Abnormal speech present, Denies confusion and Denies Sensory deficit (Neuro) Psych Denies confusion Physical Exam Vital Signs: Last Vital Signs Pulse 86 01/26/25 13:01 BP 141/63 H 01/26/25 13:01 Pulse Ox 100 01/26/25 13:01 Oxygen Delivery Method Room Air 01/26/25 13:01 BMI result Body Mass Index 34.9 Const General: no acute distress; No confusion Orientation/consciousness: patient oriented x3 and No confusion Eyes General: appearance normal, both eyes and all related structures Pupils: Equal, round and reactive pupils present EOM: EOMs intact bilaterally Neck Neck: Yes full ROM Chest Chest palpation & inspection: normal inspection of the chest Resp Effort & Inspection: normal respiratory effort, able to speak in complete sentences, normal respiratory pattern, no audible wheezes and no cough Cardio Jugular venous distension: no JVD GI Inspection: Yes normal to inspection Back/Spine/Pelvis Other: Bending forward and bending backwards equally aggravate her pain however bending forward seem to aggravate her pain more than bending backwards. Loading test is positive bilaterally. SLR is negative bilaterally. Lassegue test is negative bilaterally. Niels test is positive on the right, Gaenslen test is positive on the right, pelvic compression and pelvic distraction tests are positive on the right. Lateral rotation of the right hip and medial rotation of the right hip do not aggravate her pain. No tenderness on palpation in spinal or paraspinal region of the entire lumbar spine or sacral bone. Neuro General: patient oriented x3, gait normal and No confusion Cranial nerves: Yes CN's II-XII intact bilaterally, Yes Equal, round and reactive pupils present, Yes Normal hearing present and Yes Ability to bilaterally elevate shoulders present Speech: No Abnormal speech present Gait exam (Neuro): Normal gait present Motor exam (neuro): 5/5 motor strength present throughout Sensory Exam: No Sensory deficit (Neuro) Extrem General: No pedal edema Psych Speech and movement: Normal speech and movement present Affect: normal affect Attitude: cooperative Thought process: Normal thought process present Thought content: Normal thought content present Insight: Good insight present (Psych) Judgement: Good judgement present (Psych) Assessment & Plan Assessment & Plan (1) Low back pain: Code(s): M54.50 - Low back pain, unspecified Category: Medical (2) Sacroiliitis: Code(s): M46.1 - Sacroiliitis, not elsewhere classified Category: Medical (3) Sacroiliac joint dysfunction of right side: Code(s): M53.3 - Sacrococcygeal disorders, not elsewhere classified Category: Medical (4) Chronic pain syndrome: Code(s): G89.4 - Chronic pain syndrome Category: Medical (5) Spondylosis of lumbar region without myelopathy or radiculopathy: Code(s): M47.816 - Spondylosis without myelopathy or radiculopathy, lumbar region Category: Medical Plan On physical exam this patient exhibits signs of sacroiliitis. However diagnose sacroiliac joint injection resulted in no pain improvement. Minimal changes on x-ray of the hip demonstrate acetabular spurring under roof. X-ray of the lumbar spine demonstrates widespread facet arthropathy I offered the patient today to perform diagnostic medial branch block however she stated that the injection in the sacroiliac joint was too much for her. She does not want to consider any injections in the future. I suggested that she would continue medical pain management with primary care physician. Coding Level of Care Code Est Pt Level 3 (97641) Diagnoses Low back pain M54.50 Sacroiliitis M46.1 Sacroiliac joint dysfunction of right side M53.3 Chronic pain syndrome G89.4 Spondylosis of lumbar region without myelopathy or radiculopathy M47.816
[2025-01-26 13:01] VITALS: BP 141/63; PULSE 86; O2SAT 100; BMI 34.9
--- OUTSIDE RECORDS SUMMARY | 2025-01-26 15:41 | XMS_ITS | Data Portability ---
Author Organization [facility] Address [address] [place] [address] Care Team Providers Care Paper Machine Operator Name Role Phone [facility] Referring Provider Assessment Encounter Date Assessment Date Assessment LastModified by Organization Details LastModified Time 08/26/2023 08/26/2023 I provided real -time medical direction via phone for this encounter, and was available for additional phone based assistance as needed. I have reviewed and agree with the Assessment and Plan as documented by the Liturgical Music Director 67-year-old female is seen for several days of cough productive clear sputum. No fevers. No shortness of breath. No chest pain. Covid ipaqk-pk-dfab testing negative. Given symptoms greater than five [...] Tessalon Perles 100 mg capsule 2022 023 [facility][id number], [address] [place], [address], 3 11:33:30 Patient TargetsNo targets recorded. Patient InstructionsNo instructions recorded. Reason for Referral None Reported. Medical Equipment None Reported. Allergies Allergen ID Allergen Name Allergen Category Reaction Reaction Severity Criticality Documentation Date Start Date Code Code System Note Provider Name and Address Organization Details Recorded Time 6647 morphine medicatio n Not available Not available Not available 08/16/2024 7052 RxNorm Not Available [facility] - production 4 03:54:51 9364 Product containin g penicilli n (product) medicatio n Not available Not available Not available 08/16/2024 20485 8001 SNOMED Not Available [facility] - production [...] SNOMED-CT Code Diagnosis ICD10 Code Diagnosis Note [id number] Noam Lua MD [facility] [address] [place] [phone] 08/26/2023 11:31:29 10/24/2023 16:07:44 Cough 83319771 R05.9 Health Concerns Section Related Observation LastModified by Organization Detai ls LastModified Time None Recorded Concern Status LastModified by Organization Details LastModified Time None Recorded Advance Directives Directive None Recorded Payers Encounter Date Sequence Insurance Name Policy Number Policy Humphrey Covered Member ID Humphrey Member ID Guarantor Name 08/26/2023 1 [facility] - DOS ON OR AFTER 2023 - DUAL ELIGIBLE - LONG-TERM OPTIONS AND ONE CARE (MEDICARE REPLACEMENT/ADV ANTAGE - HMO) Ximena Cano [id number] Ximena Cano Notes Date Note Type Note [...] .................. .................. .................. .................. .................. .................. ............... Liturgical Music Director Note From Scotty Rose: Patient reports eight days of productive cough with clear phlegm. Patient denies difficulty breathing, but states that the coughing is causing her back to hurt. Denies chest pain or changes in vision. Breath sounds clear in all mazariegos. [facility] contacted: prescription for Tessalon pearls at patient? s pharmacy of choice was made. Red flags covered with patient regarding symptoms and medication. POC Covid swab negative Liturgical Music Director Allergies: Morphine, Penicillin .................. .................. .................. .................. .................. .................. .................. ............... Disposition: Fulfilled Noam Lua MD [address] [place] [address],[address], [place], [address], [facility] - JOANNA CHING 10/08/2023 12:32:44 OBGyn Episode No OBEpisode recorded.
--- OUTSIDE RECORDS SUMMARY | 2025-01-26 15:41 | XMS_ITS | Data Portability ---
Author Organization [place] - [facility], Allergy Address [address] [place] [phone] Care Team Providers Care Electrotype Molder Name Role Phone CRUZ GONZALEZ Primary Care [...] Address Organization Details Recorded Time Chronic hoarseness 0470716788423 Active 2023 ILEANA KULKARNI MD [address] [place] [address], [phone], [facility] - [facility] 4 13:27:44 Gastroesoph ageal reflux disease without esophagitis [id number] Active 2023 ILEANA KULKRANI MD [address] [place] [address], [phone], [facility] - [facility] 4 13:30:14 Problem Notes None recorded. Procedures Surgical History Date Name Laterality Status Provider Name and Address Organization Details Recorded Time 05/20/20 24 Fiberoptic Laryngoscopy (Comprehensive) completed ILEANA KULKARNI MD [address] [place] [address], [place], [phone], [facility] - [facility] 05/27/2024 13:27:36 Imaging Results None recorded. [...] Updated DateTime 05/20/2024 157.48 cm 33.6 kg/m2 23128.2 g Toyin Cartagena [facility] 05/20/2024 13:57:06 Social History None recorded. Functional Status None recorded. Mental Status None recorded. Family History Nothing Reported. Medical History Condition Response Hypertension Y Asthma Y Gynecological HistoryNo gynecological history recorded. Obstetrics History GPAL:G 0 P 0 0 0 0 Past Encounters Encounter ID Performer Location Encounter Start Date Encounter Closed Date Diagnosis/Indication Diagnosis SNOMED-CT Code Diagnosis ICD10 Code Diagnosis Note [id number] ILEANA KULKARNI MD [facility] [address] [phone] 05/20/2024 13:04:07 05/20/2024 16:05:43 Chronic hoarseness 1335634253 105 R49.0 68-year-ol d female with a [...] future. Gastroesop hageal reflux disease without esophagitis 955176165 K21.9 Health Concerns Section Related Observation LastModified by Organization Detai ls LastModified Time None Recorded Concern Status LastModified by Organization Details LastModified Time None Recorded Advance Directives Directive None Recorded Payers Encounter Date Sequence Insurance Name Policy Number Policy Humphrey Covered Member ID Humphrey Member ID Guarantor Name 05/20/2024 1 [facility] - DOS ON OR AFTER 2023 - [employer] (MEDICARE REPLACEMENT/AD VANTAGE - HMO) Reji Cano [id number] Reji Cano Notes Date Note Type Note Provider Name and Address Organization Details Recorded Time 05/20/2024 text/html 68 yo F presents today for hoarseness. Has reflux on omeprazole. Has DM. Has asthma. Voice today is hoarse. Mild sore throat. No trouble swallowing. No otalgia. ILEANA KULKARNI MD [address] [place] [address], [phone], [place] - [facility] 05/27/2024 13:31:24 OBGyn Episode No OBEpisode recorded.
--- OUTSIDE RECORDS SUMMARY | 2025-01-26 15:41 | XMS_ITS | Clinical Summary ---
Author Organization [facility] ity Address [address] [place] [address] Care Team Providers Care Life Science Research Assistant Name Role Phone Unavailable Primary Care Provider [...]
--- OUTSIDE RECORDS SUMMARY | 2025-01-26 15:41 | XMS_ITS | Clinical Summary ---
Author Organization [facility] Address [address] [place] [address] Care Team Providers Care Greenskeeper Laborer Name Role Phone Unavailable Primary Care Provider [...] powder TAKE DIRECTED BY GASTRO[facility]OLOGY DEPARTMENT AT [facility] 03/20/20 22 Active SENNA 8.6 mg [...] Prophy 04/12/2023 04/10/2022 Hypertension Screening (#1) 09/19/2023 [id number] ( - season) 2024 Imm-Influenza (#1) 2024 [...] Most Recently Relevant to Health Maintenance Insurance [place] Member Subscriber Plan / Payer (Ef fective 2022-Present) Name:Ximena Lund Relation to Subscriber:Self Name:Ximena Lund Payer ID:[id number] Group ID:Not on file Type:Medicaid Address: [place] [id number] [place] [id number] HEALTH SAFETY NET DENTAL - DENTAL HEALTH SAFETY NET DENTAL - DENTAL
== END 2025-01-26 13:36 | disposition home or self-care (01) ==
PROVIDERS: PCP Internal Medicine; Visit Provider Anesthesiology
DX: M54.50 Low back pain, unspecified (principal); M46.1 Sacroiliitis, not elsewhere classified; M53.3 Sacrococcygeal disorders, not elsewhere classified; G89.4 Chronic pain syndrome; M47.816 Spondylosis without myelopathy or radiculopathy, lumbar region
CPT/HCPCS: 99213

== ENCOUNTER → 2025-01-26 13:01 | Outpatient (BNVA) | payer OTHER, SELFPAY | PROVIDERS: PCP Internal Medicine; Visit Provider Anesthesiology | DX: M46.1 Sacroiliitis, not elsewhere classified (principal); M53.3 Sacrococcygeal disorders, not elsewhere classified; G89.4 Chronic pain syndrome; M47.816 Spondylosis without myelopathy or radiculopathy, lumbar region | CPT/HCPCS: 99212 ==

== ENCOUNTER 2025-01-30 14:02 | Outpatient (AMB) | payer OTHER, SELFPAY ==
--- NOTE | 2025-01-30 14:15 | MHC.OFFVIS ---
Intake Visit Reasons: umbilical hernia Intake Note: Patient is seen in office for evaluation of a hernia. Pt c/o: pain in the opening of the abdomen, admits reflux, nausea and vomit post meals, constipation, straining, denies blood in stool CT: 01/11/25 ref Abi Jimenez Wind Farm Support Specialist Required: Yes Wind Farm Support Specialist Language: Systems Testing Laboratory Technician Services: Wind Farm Support Specialist Present Wind Farm Support Specialist Name: Karla HERNANDEZ Information Interpreted: non-clinical & clinical Accompanied by: Other Relationship Allergies Penicillins Allergy (Intermediate, Verified 01/30/25 14:24) DIZZINESS, RASH tramadol [TRAMADOL] Allergy (Intermediate, Verified 01/30/25 14:24) NAUSEA & VOMITING egg [Egg] Adverse Reaction (Intermediate, Verified 01/30/25 14:24) NAUSEA & VOMITING morphine Adverse Reaction (Intermediate, Verified 01/30/25 14:24) Chest Pain oxycodone Adverse Reaction (Verified 01/30/25 14:24) Dizziness FANY DRINK Allergy (Intermediate, Uncoded 01/30/25 14:24) NAUSEA & VOMITING Medication List - Last Reconciled 01/30/25 by Wyatt Shi MD acetaminophen 500 mg PO Q6H PRN amlodipine 5 mg PO DAILY aspirin 81 mg PO DAILY 90 days atenolol 50 mg PO DAILY atorvastatin 20 mg PO BEDTIME 90 days bisacodyl (Dulcolax (bisacodyl)) 10 mg (2 x 5 mg) PO BEDTIME blood pressure test kit-large (Advocate Blood Pressure Monitor kit) As directed buspirone 10 mg PO BID 90 days calcium carbonate-vitamin D3 500 mg-10 mcg (400 unit) (Oyster Shell Calcium-Vitamin D3) 1 tab PO DAILY 90 days docusate sodium 100 mg PO BEDTIME gabapentin 100 mg PO BEDTIME 30 days hydrocortisone 2.5% (Anusol-HC) 1 appl ID BID-QID PRN lidocaine 5% (Lidoderm) 1 patch topical DAILY PRN MDD remove after 12 hours methylcellulose (laxative) (Citrucel) 500 mg PO DAILY pantoprazole 40 mg PO BID@0630,1630 pioglitazone 15 mg PO DAILY sennosides (senna) 17.2 mg PO BEDTIME PRN simethicone (Gas Relief (simethicone)) 125 mg PO TID PRN vibegron (Gemtesa) 75 mg PO DAILY 30 days walker As Directed HPI HPI umbilical hernia: Details: 69-year-old female referred by the putty remover service for a question of an umbilical hernia. The patient does not really state that she has any problems with the umbilicus. She denies any palpable mass. She has known GERD symptoms. She did have a CAT scan done earlier this month for her GERD symptoms. I have reviewed this and this does not reveal any umbilical hernia. [facility] Medical History Hemorrhoid Hospital discharge follow-up History of mammogram (~06/2024) PMB (postmenopausal bleeding) COVID-19 Impaired glucose regulation Dysuria Pelvic pain Burning with urination Fibroids Hiatal hernia Right shoulder pain Exposure to COVID-19 virus Mild depression TIA (transient ischemic attack) Asthma Back pain Abdominal pain Vaginal pruritus Vitamin D deficiency Left knee pain Left ankle pain Depression with anxiety Polyarthralgia Pure hypercholesterolemia Essential hypertension Surgical History History of tooth extraction History of colonoscopy History of cyst of breast History of hemicolectomy History of cholecystectomy History of appendectomy History of exploratory laparotomy Family History Father No problems noted. Mother Hypertension Stroke Diabetes Brother Leptospirosis Brother No problems noted. Family/Other FH: mental illness Son Hypertension Social History Household Members: Spouse Housing: Apartment Are you a primary adult care manager to a significant other at home: No Do you presently have visiting nurse or other home services: No Alcohol intake: never Patient Tobacco Use Status: Never used Tobacco e-Cigarette/Vaping Use: Never Used Second Hand Smoke Exposure: No service: No Current occupational status: disabled Sexual orientation: Straight/Heterosexual Gender identity: Female Cognitive needs: Yes Hearing needs: No Vision needs: Yes Female Reproductive History Menstrual Age of Menarche: 9 Review of Systems Const Denies chills and Denies fever(s) Card Denies chest pain, Denies dyspnea and Denies dyspnea on exertion Resp Denies cough, Denies dyspnea and Denies dyspnea on exertion GI Details: Reflux Denies hematochezia and Denies change in bowel habits Denies hematuria Musc Denies back pain and Denies limited range of motion Neuro Denies focal weakness and Denies convulsions Psych Denies depression and Denies mood swings Physical Exam Const General: comfortable and no acute distress Orientation/consciousness: patient oriented x3 Neck Neck: Yes no lymphadenopathy Resp Auscultation: clear to auscultation bilaterally Cardio Rhythm: regular rhythm GI Other: No palpable hernia on the umbilicus or any wear on her abdominal wall Palpation (GI): Soft to palpation, nontender and no guarding Neuro General: patient oriented x3 Assessment & Plan Assessment & Plan (1) GERD (gastroesophageal reflux disease): Code(s): K21.9 - Gastro-esophageal reflux disease without esophagitis Category: Medical Qualifiers: Esophagitis presence: esophagitis presence not specified Qualified Code(s): K21.9 - Gastro-esophageal reflux disease without esophagitis Plan: She was referred for a question of an umbilical hernia. Physical exam does not reveal this. I have reviewed her CAT scan either and this does not show an umbilical hernia . I told her that she does not require any surgery for her abdominal wall at this time. I therefore told her to returned to her urologist with regards to her GERD symptoms. Coding Level of Care Code New Pt Level 3 (75520) Diagnoses Gastroesophageal reflux disease, unspecified whether esophagitis present K21.9 Esophagitis presence: esophagitis presence not specified
--- OUTSIDE RECORDS SUMMARY | 2025-01-30 16:21 | XMS_ITS | Clinical Summary ---
Author Organization [facility] Address [address] [place] [address] Care Team Providers Care Cargo Services Coordinator Name Role Phone Unavailable Primary Care Provider [...] TAKE DIRECTED BY GASTROENTEROLOGY DEPARTMENT AT [facility] 03/20/20 22 Active SENNA 8.6 [...] Prophy 04/12/2023 04/10/2022 Hypertension Screening (#1) 09/19/2023 [id number] ( - season) 2024 Imm-Influenza (#1) 2024 [...] Lund Relation to Subscriber:Self Name:Ximena Lund Payer ID:[id number] Group ID:Not on file Type:Medicaid Address: [place] [id number] [place] [id number] HEALTH SAFETY NET DENTAL - DENTAL HEALTH SAFETY NET DENTAL - DENTAL
--- OUTSIDE RECORDS SUMMARY | 2025-01-30 16:21 | XMS_ITS | Clinical Summary ---
Author Organization [facility] ity Address [address] [place] [address] Care Team Providers Care Trainer Name Role Phone Unavailable Primary Care Provider [...] - 2023-2 5 season) 2024 Influenza Vaccine (Season Ended) 2025 RSV Immunization Adult Patie nts (1 - [...]
--- OUTSIDE RECORDS SUMMARY | 2025-01-30 16:21 | XMS_ITS | Data Portability ---
Author Organization [employer] [employer] Address [address] [place] [phone] Care Team Providers Care Web Site Developer Name Role Phone [facility] Referring Provider Assessment Encounter Date Assessment Date Assessment LastModified by Organization Details LastModified Time 08/26/2023 08/26/2023 I provided real -time medical direction via phone for this encounter, and was available for additional phone based assistance as needed. I have reviewed and agree with the Assessment and Plan as documented by the Careers Counsellor 67-year-old female is seen for several days of cough productive clear sputum. No fevers. No shortness of breath. No chest pain. Covid [id number] testing negative. Given symptoms greater than five [...] Tessalon Perles 100 mg capsule 2022 023 [facility] #[id number], [address] [place], [address], 3 11:33:30 Patient TargetsNo targets recorded. Patient InstructionsNo instructions recorded. Reason for Referral None Reported. Medical Equipment None Reported. Allergies Allergen ID Allergen Name Allergen Category Reaction Reaction Severity Criticality Documentation Date Start Date Code Code System Note Provider Name and Address Organization Details Recorded Time 8367 morphine medicatio n Not available Not available Not available 08/16/2024 7052 RxNorm Not Available [facility] - production 4 03:54:51 9364 Product containin g penicilli n (product) medicatio n Not available Not available Not available 08/16/2024 82234 8001 SNOMED Not Available [facility] - production [...] SNOMED-CT Code Diagnosis ICD10 Code Diagnosis Note [id number] Noam Lua MD Main - [facility] [address] [place] [phone] 08/26/2023 11:31:29 10/24/2023 16:07:44 Cough 84539783 R05.9 Health Concerns Section Related Observation LastModified by Organization Detai ls LastModified Time None Recorded Concern Status LastModified by Organization Details LastModified Time None Recorded Advance Directives Directive None Recorded Payers Encounter Date Sequence Insurance Name Policy Number Policy Humphrey Covered Member ID Humphrey Member ID Guarantor Name 08/26/[address] [facility] - DOS ON OR AFTER 2023 - DUAL ELIGIBLE - LONGTERM OPTIONS AND ONE CARE (MEDICARE REPLACEMENT/ADV ANTAGE - HMO) Ximena Cano [id number] Ximena Cano Notes Date Note Type Note [...] .................. .................. .................. .................. .................. .................. ............... Careers Counsellor Note From Scotty Rose: Patient reports eight days of productive cough with clear phlegm. Patient denies difficulty breathing, but states that the coughing is causing her back to hurt. Denies chest pain or changes in vision. Breath sounds clear in all mazariegos. [facility] [place] for Tessalon pearls at patient? s pharmacy of choice was made. Red flags covered with patient regarding symptoms and medication. POC Covid swab negative Careers Counsellor Allergies: Morphine, Penicillin .................. .................. .................. .................. .................. .................. .................. ............... Disposition: Fulfilled Noam Lua MD [address] [place] [address],[address], [place], [address], [facility] - JOANNA CHING 10/08/2023 12:32:44 OBGyn Episode No OBEpisode recorded.
--- OUTSIDE RECORDS SUMMARY | 2025-01-30 16:21 | XMS_ITS | Data Portability ---
Author Organization [place] - [facility], Allergy Address [address] [place] [phone] Care Team Providers Care Electrical Power Engineer Name Role Phone CRUZ GONZALEZ Primary [...] Address Organization Details Recorded Time Chronic hoarseness [id number] Active 2023 ILEANA KULKARNI MD [address] [place] [address], [phone], [facility] - [facility] 4 13:27:44 Gastroesoph ageal reflux disease without esophagitis 757760860 Active 2023 ILEANA KULKARNI MD [address] [place] [address], [phone], [facility] - [facility] 4 13:30:14 Problem Notes None recorded. Procedures Surgical History Date Name Laterality Status Provider Name and Address Organization Details Recorded Time 05/20/20 24 Fiberoptic Laryngoscopy (Comprehensive) completed ILEANA KULKARNI MD [address] [place] [address], [place], [address], [facility] - [facility] 05/27/2024 13:27:36 Imaging Results None [...] Updated DateTime 05/20/2024 157.48 cm 33.6 kg/m2 06372.2 g Toyin Cartagena [facility] 05/20/2024 13:57:06 Social History None recorded. Functional Status None recorded. Mental Status None recorded. Family History Nothing Reported. Medical History Condition Response Hypertension Y Asthma Y Gynecological HistoryNo gynecological history recorded. Obstetrics History GPAL:G 0 P 0 0 0 0 Past Encounters Encounter ID Performer Location Encounter Start Date Encounter Closed Date Diagnosis/Indication Diagnosis SNOMED-CT Code Diagnosis ICD10 Code Diagnosis Note [id number] ILEANA KULKARNI MD [facility] [address] [address] 05/20/2024 13:04:07 05/20/2024 16:05:43 Chronic hoarseness 3640292543 105 R49.0 68-year-ol d female with a [...] future. Gastroesop hageal reflux disease without esophagitis 904314503 K21.9 Health Concerns Section Related Observation LastModified by Organization Detai ls LastModified Time None Recorded Concern Status LastModified by Organization Details LastModified Time None Recorded Advance Directives Directive None Recorded Payers Encounter Date Sequence Insurance Name Policy Number Policy Humphrey Covered Member ID Humphrey Member ID Guarantor Name 05/20/2024 1 [facility] - DOS ON OR AFTER 2023 - [employer] OPTIONS (MEDICARE REPLACEMENT/AD VANTAGE - HMO) Reji Cano [id number] Reji Cano Notes Date Note Type Note Provider Name and Address Organization Details Recorded Time 05/20/2024 text/html 68 yo F presents today for hoarseness. Has reflux on omeprazole. Has DM. Has asthma. Voice today is hoarse. Mild sore throat. No trouble swallowing. No otalgia. ILEANA KULKARNI MD [address] [place] [address], [phone], [place] [facility] 05/27/2024 13:31:24 OBGyn Episode No OBEpisode recorded.
== END 2025-01-30 14:32 | disposition home or self-care (01) ==
LOC: HO.HGS 14:02
PROVIDERS: PCP Internal Medicine; Visit Provider Surgery
DX: K21.9 Gastro-esophageal reflux disease without esophagitis (principal)
CPT/HCPCS: 99203

== ENCOUNTER → 2025-01-30 14:02 | Outpatient (BNVA) | payer OTHER, SELFPAY | PROVIDERS: PCP Internal Medicine; Visit Provider Surgery | DX: K46.9 Unspecified abdominal hernia without obstruction or gangrene (principal); K21.9 Gastro-esophageal reflux disease without esophagitis | CPT/HCPCS: 99202 ==

== ENCOUNTER 2025-03-15 14:09 | Outpatient (AMB) | payer OTHER, SELFPAY ==
[2025-03-15 14:16] VITALS: BP 122/80; BMI 34.2
--- NOTE | 2025-03-15 14:16 | MHC.PC.OV ---
Vital Signs 03/15/25 14:16 Height 5 ft 1 in Weight 181 lb BMI 34.2 BP 122/80 Blood Pressure Location Lt brachial Position Sitting Intake Visit Reasons: dm Intake Note: Patient here for a follow up DM Backpackers Manager Required: No Accompanied by: Daughter Allergies Penicillins Allergy (Intermediate, Verified 03/15/25 14:24) DIZZINESS, RASH tramadol [TRAMADOL] Allergy (Intermediate, Verified 03/15/25 14:24) NAUSEA & VOMITING egg [Egg] Adverse Reaction (Intermediate, Verified 03/15/25 14:24) NAUSEA & VOMITING morphine Adverse Reaction (Intermediate, Verified 03/15/25 14:24) Chest Pain oxycodone Adverse Reaction (Verified 03/15/25 14:24) Dizziness FANY DRINK Allergy (Intermediate, Uncoded 03/15/25 14:24) NAUSEA & VOMITING Medication List - Last Reconciled 03/15/25 by Aure Horton MD acetaminophen 500 mg PO Q6H PRN amlodipine 5 mg PO DAILY aspirin 81 mg PO DAILY 90 days atenolol 50 mg PO DAILY atorvastatin 20 mg PO BEDTIME 90 days bisacodyl (Dulcolax (bisacodyl)) 10 mg (2 x 5 mg) PO BEDTIME blood pressure test kit-large (Advocate Blood Pressure Monitor kit) As directed buspirone 10 mg PO BID 90 days calcium carbonate-vitamin D3 500 mg-10 mcg (400 unit) (Oyster Shell Calcium-Vitamin D3) 1 tab PO DAILY 90 days docusate sodium 100 mg PO BEDTIME gabapentin 100 mg PO BEDTIME 30 days hydrocortisone 2.5% (Anusol-HC) 1 appl WA BID-QID PRN lidocaine 5% (Lidoderm) 1 patch topical DAILY PRN MDD remove after 12 hours methylcellulose (laxative) (Citrucel) 500 mg PO DAILY pantoprazole 40 mg PO BID@0630,1630 pioglitazone 15 mg PO DAILY sennosides (senna) 17.2 mg PO BEDTIME PRN simethicone (Gas Relief (simethicone)) 125 mg PO TID PRN vibegron (Gemtesa) 75 mg PO DAILY 30 days walker As Directed Tobacco use date assessed: 11/09/24 Fall risk assessment: No Falls in past year Last assessed Fall Risk: 03/15/25 Dental Screening Dental Screen Date: 11/09/24 HPI HPI Comments History of Present Illness Details The patient is a 69-year-old female presenting with management of multiple chronic conditions and discussion of recent symptoms. Her type 2 diabetes mellitus is currently well controlled with a recent HbA1c of 6.7%. She is under treatment for essential hypertension and hyperlipidemia. The patient reported a history of low hemoglobin, which resolved after a gynecological biopsy and subsequent surgical intervention. She experienced pre-operative episodes of bleeding which resembled menstruation, but this stopped post-operation. The patient has a history of gastroesophageal reflux disease, constipation, and urinary frequency. She is currently taking pantoprazole for reflux, and bisacodyl, docusate, and Senna for constipation. Despite taking Gemtesa for urinary frequency, she reports it is ineffective. She also experiences patchy hair loss and dry eyes, which she attributes to allergies. The patient has several medication allergies, including penicillin, tramadol, morphine, and oxycodone, and she uses a nasal spray and an eye ointment for her conditions. [facility] Medical History (Updated 03/15/25 @ 15:45 by Aure Horton MD) Hemorrhoid Hospital discharge follow-up History of mammogram (~06/2024) PMB (postmenopausal bleeding) COVID-19 Impaired glucose regulation Dysuria Pelvic pain Burning with urination Fibroids Hiatal hernia Right shoulder pain Exposure to COVID-19 virus Mild depression TIA (transient ischemic attack) Asthma Back pain Abdominal pain Vaginal pruritus Vitamin D deficiency Left knee pain Left ankle pain Depression with anxiety Polyarthralgia Pure hypercholesterolemia Essential hypertension Surgical History History of tooth extraction History of colonoscopy History of cyst of breast History of hemicolectomy History of cholecystectomy History of appendectomy History of exploratory laparotomy Family History Father No problems noted. Mother Hypertension Stroke Diabetes Brother Leptospirosis Brother No problems noted. Family/Other FH: mental illness Son Hypertension Social History Household Members: Spouse Housing: Apartment Are you a primary child care education coordinator to a significant other at home: No Do you presently have visiting nurse or other home services: No Alcohol intake: never Patient Tobacco Use Status: Never used Tobacco e-Cigarette/Vaping Use: Never Used Second Hand Smoke Exposure: No service: No Current occupational status: disabled Sexual orientation: Straight/Heterosexual Gender identity: Female Cognitive needs: Yes Hearing needs: No Vision needs: Yes Female Reproductive History Menstrual Age of Menarche: 9 Questionnaire PHQ-9 Over the last 2 weeks, how often have you been bothered by any of the following problems? 1. Little interest or pleasure in doing things: several days 2. Feeling down, depressed, or hopeless: several days 3. Trouble falling or staying asleep, or sleeping too much: more than half the days 4. Feeling tired or having little energy: nearly every day 5. Poor appetite or overeating: several days 6. Feeling bad about yourself - or that you are a failure or have let yourself or your family down: not at all 7. Trouble concentrating on things, such as reading the newspaper or watching television: not at all 8. Moving or speaking so slowly that other people could have noticed. Or the opposite - being so fidgety or restless that you have been moving around a lot more than usual: several days 9. Thoughts that you would be better off or of hurting yourself in some way: not at all Total score: 9 Depression Screening Interpretation: Positive Depression Screening Follow-up: Existing condition, In treatment and Follow-up Visit Requested Depression Screening Done: Yes 21922 - PHQ-9 Billing: Yes Source: Developed by Drs. Dagoberto Mercer, Adry Valentin, Néstor Garcia and colleagues, with an educational zheng from [employer]. Thrive Questionnaire Date Thrive assessed: 12/23/24 I am a: Patient What is your living situation today?: I have a steady place to live Within the past 12 months, did the food you bought not last and you didn't have the money to get more?: I choose not to answer this question Within the past 12 months, did you worry whether your food would run out before you got money to buy more?: I choose not to answer this question Do you have trouble paying for medicines?: No Do you have trouble getting transportation to medical appointments?: No Do you have trouble paying your heating and electricity bill?: No Do you have trouble taking care of your child, family member or friend?: No Do you have trouble with day-to-day activities such as bathing, preparing meals, shopping, managing finances, etc.?: Yes Are you currently unemployed and looking for a job?: No Are you interested in more education?: No Please select the resources that you would like help with: Care for elder or disabled Currently or been in a relationship where the following occur: No concerns reported THRIVE Score: 0 AUDIT C Alcohol Use Questionnaire (AUDIT-C) 1. How often do you have a drink containing alcohol?: Never Total Score: 0 Score Reviewed/Action Taken: No JESSICA-7 AMB Questionnaire JESSICA-7 Date JESSICA - 7 assessed: 11/09/24 Feeling nervous, anxious, or on edge: 1 = Several days Not being able to stop or control worryin = Several days Worrying too much about different things: 1 = Several days Trouble relaxin = Several days Being so restless that it is hard to sit still: 2 = More than half the days Becoming easily annoyed or irritable: 2 = More than half the days Feeling afraid as if something awful might happen: 2 = More than half the days Total JESSICA-7 score (0-4 normal; 5-9 mild; 10-14 moderate; 15-21 severe): 10 Source: Developed by Drs. Dagoberto Mercer, Adry Valentin, Néstor Garcia and colleagues, with an educational zheng from [employer]. JESSICA-7 Assessment Billing JESSICA-7 Assessment Tool: JESSICA-7 Assessment 90603 Review of Systems Const All systems reviewed & are unremarkable except as noted in HPI and below Card Denies chest pain at rest, Denies chest pain with activity, Denies edema, Denies irregular heart rhythm, Denies claudication, Denies dyspnea, Denies dyspnea on exertion, Denies orthopnea, Denies paroxysmal nocturnal dyspnea and Denies slow heart rate Resp Denies cough, Denies dyspnea and Denies dyspnea on exertion GI Denies abdominal pain, Denies change in bowel habits, Denies excessive flatus, Denies nausea and Denies vomiting Denies urinary incontinence, Denies urinary hesitancy and Denies urinary urgency Musc Denies abnormal gait, Denies atrophy, Denies deformity and Denies limited range of motion Skin/Breast Denies bleeding lesions, Denies changing lesions and Denies rash Neuro Denies abnormal gait and Denies lack of coordination Physical exam (Primary Care) Vital Signs: Last Vital Signs BP 122/80 03/15/25 14:16 BMI result Body Mass Index 34.2 BMI Assessment/Plan discussion: High BMI High, discussed plan: lifestyle, weight reduction, dietary and physical activity Tobacco/Smoking Status: Tobacco use Status Tobacco use date assessed 11/09/24 03/15/25 14:19 Patient Tobacco Use Status Never used Tobacco 03/15/25 14:19 e-Cigarette/Vaping Use Never Used 03/15/25 14:19 PHQ-9: PHQ-9 Score PHQ-9: Total score 9 03/15/25 14:27 Depression Screening Interpretation: Positive Depression Screening Follow-up: Existing condition, In treatment and Follow-up Visit Requested Thrive Assessment: Date of Thrive Assessment Date Thrive assessed 12/23/24 03/15/25 14:19 Currently or been in a relationship where the following occur: No concerns reported Resp Effort & Inspection: normal respiratory effort Auscultation: clear to auscultation bilaterally Cardio Jugular venous distension: no JVD Rate: regular rate Rhythm: regular rhythm Heart sounds: S1 normal heart sound present and S2 normal heart sound present Extrem General: Yes full ROM Results AMB Hemoglobin A1c AMB Hemoglobin A1c 6.7 % Last Edit by DAVID Walton on 03/15/25 14:30 Results Reviewed Results Reviewed: Laboratory Last Values Hgb A1c (Clinic) 6.7 % (4.0-6.0) H 03/15/25 14:13 Coding Level of Care Code Est Pt Level 4 (20171) Complex EM visit Add On G2211 Diagnoses Hair loss L65.9 Allergic rhinitis J30.9 Type 2 diabetes mellitus without complication, without long-term current use of insulin E11.9 Diabetes mellitus type: type 2 Diabetes mellitus [facility] insulin use: without superintendent [employer] use Diabetes mellitus complication status: without complication Essential hypertension I10 Osteopenia M85.80 Mild depression F32.0 Pure hypercholesterolemia E78.00 Gastroesophageal reflux disease, unspecified whether esophagitis present K21.9 Esophagitis presence: esophagitis presence not specified Additional Codes JESSICA-7 Assessment Billing - JESSICA-7 Assessment Tool: JESSICA-7 Assessment 14347 ([id number]) PHQ-9 - 04271 - PHQ-9 Billing: Yes ([id number]) Time Spent (min) 23 Assessment & Plan Assessment & Plan (1) Hair loss: Code(s): L65.9 - Nonscarring hair loss, unspecified Category: Medical (2) Allergic rhinitis: Code(s): J30.9 - Allergic rhinitis, unspecified Category: Medical (3) Diabetes mellitus: Code(s): E11.9 - Type 2 diabetes mellitus without complications Category: Medical Qualifiers: Diabetes mellitus type: type 2 Diabetes mellitus [facility] insulin use: without superintendent [employer] use Diabetes mellitus complication status: without complication Qualified Code(s): E11.9 - Type 2 diabetes mellitus without complications (4) Essential hypertension: Code(s): I10 - Essential (primary) hypertension Category: Medical (5) Osteopenia: Code(s): M85.80 - Other specified disorders of bone density and structure, unspecified site Category: Medical (6) Mild depression: Code(s): F32.0 - Major depressive disorder, single episode, mild Category: Medical (7) Pure hypercholesterolemia: Code(s): E78.00 - Pure hypercholesterolemia, unspecified Category: Medical (8) GERD (gastroesophageal reflux disease): Code(s): K21.9 - Gastro-esophageal reflux disease without esophagitis Category: Medical Qualifiers: Esophagitis presence: esophagitis presence not specified Qualified Code(s): K21.9 - Gastro-esophageal reflux disease without esophagitis Plan The patient's type 2 diabetes mellitus will continue to be managed with the current regimen due to satisfactory control. The patient will remain on amlodipine and atorvastatin for hypertension and hyperlipidemia. Laboratory evaluations will include hemoglobin, cholesterol, and liver function tests to monitor her conditions. The patient reported inadequate response to Gemtesa for urinary frequency; alternative treatments will be considered. I recommended a nasal spray and oral medication for allergic rhinitis and an eye ointment to address dry eyes, avoiding allergens such as pollen. A dermatology referral for hair loss and ophthalmology consultation for eye symptoms will be arranged. Patient was informed and verbally consented to the use of an ambient scribe for clinic note documentation during this visit. I discussed with the patient the current management of her type 2 diabetes mellitus, which is well controlled, and the continuation of her antihypertensive and lipid-lowering medications. We addressed her recent reports of hair loss and dry eyes, considering potential thyroid involvement and allergies, respectively. I recommended laboratory testing to evaluate hemoglobin, cholesterol, and liver function levels. We discussed the ineffectiveness of Gemtesa for urinary frequency and potential alternative options. I provided instructions on using a nasal spray and oral medication for allergic rhinitis and an eye ointment for dry eyes. I emphasized avoiding pollen and other allergens. We discussed referrals to dermatology and ophthalmology for further evaluation of her symptoms. Orders: Orders AMB Hemoglobin A1c Today E11.9 - Type 2 diabetes mellitus without complications Complete Blood Count Auto Diff Today D64.9 - Anemia, unspecified Vitamin D 25-OH Total Today E55.9 - Vitamin D deficiency, unspecified Lipid Panel Today E78.5 - Hyperlipidemia, unspecified Microalbumin, Random (w Creat) Today R80.9 - Proteinuria, unspecified Thyroid Stimulating Hormone Today L65.9 - Nonscarring hair loss, unspecified IRON PROFILE Today D64.9 - Anemia, unspecified Vitamin B12 and Folate Today E53.8 - Deficiency of other specified B group vitamins Referrals Dermatology Referral L65.9 - Nonscarring hair loss, unspecified Medications: New fluticasone propionate 50 mcg/actuation (Flonase Allergy Relief) administer into each nostril 1 spray intranasal BID 16 grams 1RF 30 days cetirizine (All Day Allergy (cetirizine)) 10 mg PO DAILY PRN 90 tabs 1RF allergy symptoms 90 days Patient Instructions: - Continue current diabetes, hypertension, and hyperlipidemia medications. - Use eye ointment nightly for dry eyes. - Avoid allergens like pollen. - Use nasal spray and oral medication for allergies. - Report any worsening of urinary symptoms or new symptoms. - Follow up with recommended specialists for hair loss and eye symptoms. - Attend lab tests as instructed for hemoglobin, cholesterol, and liver function evaluations.
--- OUTSIDE RECORDS SUMMARY | 2025-03-15 15:05 | XMS_ITS | Clinical Summary ---
Author Organization [facility] ity Address [address] [place] [address] Care Team Providers Care Merchandise Supervisor Name Role Phone Unavailable Primary Care [...]
== END 2025-03-15 14:37 | disposition home or self-care (01) ==
LOC: HO.HMCH 14:10
PROVIDERS: PCP Internal Medicine; Visit Provider Internal Medicine
DX: L65.9 Nonscarring hair loss, unspecified (principal); J30.9 Allergic rhinitis, unspecified; E11.9 Type 2 diabetes mellitus without complications; I10 Essential (primary) hypertension; M85.80 Other specified disorders of bone density and structure, unspecified site; F32.0 Major depressive disorder, single episode, mild; E78.00 Pure hypercholesterolemia, unspecified; K21.9 Gastro-esophageal reflux disease without esophagitis

== ENCOUNTER → 2025-03-15 14:09 | Outpatient (BNVA) | payer OTHER, SELFPAY | PROVIDERS: PCP Internal Medicine; Visit Provider Internal Medicine | DX: E11.9 Type 2 diabetes mellitus without complications (principal); L65.9 Nonscarring hair loss, unspecified; J30.9 Allergic rhinitis, unspecified; I10 Essential (primary) hypertension; M85.80 Other specified disorders of bone density and structure, unspecified site; F32.0 Major depressive disorder, single episode, mild; E78.00 Pure hypercholesterolemia, unspecified; K21.9 Gastro-esophageal reflux disease without esophagitis; Z79.899 Other long term (current) drug therapy; Z13.31 Encounter for screening for depression | CPT/HCPCS: 83036; 96127; 99212 ==

== ENCOUNTER 2025-04-17 09:39 | Outpatient (REF) | payer OTHER, SELFPAY ==
--- NOTE | ~2025-04-17 | US_ITS ---
CLINICAL HISTORY: D25.9 - Leiomyoma of uterus, unspecified US pelvis transabdominal Comparison: None provided Findings: Transabdominal scanning performed for overall anatomy. Transvaginal scanning performed for additional detail. Anteverted uterus is 7.6 x 3.7 x 4.4 cm.Two uterine fibroids are noted the largest stone within the fundus measuring 3.7 x 3.6 x 3.7 cm slightly decreased in size, previously measuring 4.0 x 4.0 x 3.5 cm. An additional 1.5 cm fibroid is also seen. Normal myometrium. No endometrial lesion. Right ovary 1.9 x 1.0 x 1.7 cm. Left ovary nonvisualized. Normal color Doppler of right ovary. No free fluid. IMPRESSION: 1. Fibroid uterus. The largest 3.7 cm fibroid is slightly decreased in size, previously 4.0 cm. 2. Left ovary is not visualized. The right ovary is unremarkable. This document has been electronically signed by: Khushbu Naik MD on 04/18/2025 20:03:28
--- OUTSIDE RECORDS SUMMARY | 2025-04-17 10:05 | XMS_ITS | Clinical Summary ---
Author Organization [facility] ity Address [address] [place] [address] Care Team Providers Care Talent Agent Name Role Phone Unavailable Primary Care Provider [...]
== END 2025-04-17 09:40 | disposition home or self-care (01) ==
LOC: HO.US 09:39
PROVIDERS: PCP Internal Medicine; Visit Provider Obstetrics & Gynecology
DX: D25.9 Leiomyoma of uterus, unspecified (principal)
CPT/HCPCS: 76856

== ENCOUNTER 2025-04-24 09:43 | Outpatient (AMB) | payer OTHER, SELFPAY ==
--- NOTE | 2025-04-24 09:49 | A.OFFVIS_ITS ---
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: Yes Set Up Mechanic [employer] Language: Technical Project Lead Services: Set Up Mechanic [employer] Present (in person) Allergies Penicillins Allergy (Intermediate, Verified 03/15/25 14:24) DIZZINESS, RASH tramadol (TRAMADOL) Allergy (Intermediate, Verified 03/15/25 14:24) NAUSEA & VOMITING egg (Egg) Adverse Reaction (Intermediate, Verified 03/15/25 14:24) NAUSEA & VOMITING morphine Adverse Reaction (Intermediate, Verified 03/15/25 14:24) Chest Pain oxycodone Adverse Reaction (Verified 03/15/25 14:24) Dizziness FANY DRINK Allergy (Intermediate, Uncoded 03/15/25 14:24) NAUSEA & VOMITING HPI Comments Details: Presenting for follow-up ultrasound regarding uterine myoma seen on previous pelvic ultrasound. The patient is doing well with no complaints no abnormal uterine bleeding, pelvic pressure or pain. Pelvic ultrasound done recently showed the following: Anteverted uterus is 7.6 x 3.7 x 4.4 cm.Two uterine fibroids are noted the largest stone within the fundus measuring 3.7 x 3.6 x 3.7 cm slightly decreased in size, previously measuring 4.0 x 4.0 x 3.5 cm. An additional 1.5 cm fibroid is also seen. Normal myometrium. No endometrial lesion. Right ovary 1.9 x 1.0 x 1.7 cm. Left ovary nonvisualized. Normal color Doppler of right ovary. No free fluid. IMPRESSION: 1. Fibroid uterus. The largest 3.7 cm fibroid is slightly decreased in size, previously 4.0 cm. 2. Left ovary is not visualized. The right ovary is unremarkable. [facility] Medical History Hemorrhoid Hospital discharge follow-up History of mammogram (~06/2024) PMB (postmenopausal bleeding) COVID-19 Impaired glucose regulation Dysuria Pelvic pain Burning with urination Fibroids Hiatal hernia Right shoulder pain Exposure to COVID-19 virus Mild depression TIA (transient ischemic attack) Asthma Back pain Abdominal pain Vaginal pruritus Vitamin D deficiency Left knee pain Left ankle pain Depression with anxiety Polyarthralgia Pure hypercholesterolemia Essential hypertension Surgical History History of tooth extraction History of colonoscopy History of cyst of breast History of hemicolectomy History of cholecystectomy History of appendectomy History of exploratory laparotomy Family History Father No problems noted. Mother Hypertension Stroke Diabetes Brother Leptospirosis Brother No problems noted. Family/Other FH: mental illness Son Hypertension Social History Household Members: Spouse Housing: Apartment Are you a primary manager medicare to a significant other at home: No Do you presently have visiting nurse or other home services: No Alcohol intake: never Patient Tobacco Use Status: Never used Tobacco e-Cigarette/Vaping Use: Never Used Second Hand Smoke Exposure: No service: No Current occupational status: disabled Sexual orientation: Straight/Heterosexual Gender identity: Female Cognitive needs: Yes Hearing needs: No Vision needs: Yes Female Reproductive History Menstrual Age of Menarche: 9 Review of Systems Const All systems reviewed & are unremarkable except as noted in HPI and below Reports as per HPI and Reports no additional complaints GI Reports no additional complaints Reports no additional complaints Physical Exam Vital Signs: BMI result Body Mass Index 34.2 Assessment & Plan Assessment & Plan (1) Uterine fibroid: Code(s): D25.9 - Leiomyoma of uterus, unspecified Category: Medical Qualifiers: Uterine leiomyoma location: unspecified location Qualified Code(s): D25.9 - Leiomyoma of uterus, unspecified Plan: Discussed with the patient the findings on pelvic ultrasound & the risk of myosarcoma; in addition reviewed with the patient that malignancy and pre malignancy cannot be ruled out without hysterectomy for pathological evaluation ; furthermore, explained to the patient the limitation of pelvic ultrasound and endometrial biopsy in the setting. Discussed with the patient the options of treatment including expectant management versus hysterectomy; the pros and cons, risks benefits of each approach were discussed with the patient including the fact that in cases of myosarcoma, surgical treatment can lead to early diagnosis and positively affects the prognosis; after further discussion, the patient decided to proceed with expectant management. Will repeat pelvic ultrasound periodically. Instructions given to patient to call in case any of the following occurs: pressure symptoms, abnormal uterine bleeding, pelvic pain; and to schedule a 12 months pelvic ultrasound (order placed) and a follow-up appointment . All questions answered, the patient verbalized understanding and agreed with the plan . Orders: Orders US pelvic and transvaginal 12 Months D25.9 - Leiomyoma of uterus, unspecified Coding Level of Care Code Est Pt Level 3 (14697) Diagnoses Uterine leiomyoma, unspecified location D25.9 Uterine leiomyoma location: unspecified location
[2025-04-24 09:50] VITALS: BMI 34.2
--- OUTSIDE RECORDS SUMMARY | 2025-04-24 10:15 | XMS_ITS | Clinical Summary ---
Author Organization [facility] Address [address] [place] [address] Care Team Providers Care Shift Coordinator Name Role Phone Unavailable Primary Care [...] powder TAKE DIRECTED BY GASTROENTEROLOGY DEPARTMENT AT [facility] 03/20/20 22 Active SENNA 8.6 mg [...] Fecal DNA 1998 Flexible Sigmoidoscopy 1998 Imm-Pneumococcal 50+ (1 of 1 - PCV) 12/22/2003 Imm-Zoster, Recombinant (1 of 2) 12/22/2003 Bone Density Screening 2018 Falls Prevention 2018 Dental BW 04/12/2023 04/10/2022 Dental Examination 04/12/2023 04/10/2022 Dental Prophy 04/12/2023 04/10/2022 Hypertension Screening (#1) 09/19/2023 [id number] ( - season) 2024 Alcohol and Drug Screen 10/19/2024 Depression Annual Screen 10/19/2024 Imm-Influenza (Season Ended) 2025 Dental FMX/Pano 05/24/2027 05/22/2022, 04/10/2022 Procedures Procedure [...] Most Recently Relevant to Health Maintenance Insurance [place] Member Subscriber Plan / Payer (Ef fective 2022-Present) Name:Ximena Lund Relation to Subscriber:Self Name:Ximena Lund Payer ID:[id number] Group ID:Not on file Type:Medicaid Address: [place] [id number] [place] [id number] HEALTH SAFETY NET DENTAL - DENTAL HEALTH SAFETY NET DENTAL - DENTAL
--- OUTSIDE RECORDS SUMMARY | 2025-04-24 10:15 | XMS_ITS | Clinical Summary ---
Author Organization [facility] ity Address [address] [place] [address] Care Team Providers Care Transfer Professor Name Role Phone Unavailable Primary Care Provider [...]
--- OUTSIDE RECORDS SUMMARY | 2025-04-24 10:15 | XMS_ITS | Data Portability ---
Author Organization [place] - [facility], Allergy Address [address] [place] [phone] Care Team Providers Care Mushroom Farmer Name Role Phone ILEANAJae VILLEGAS CRUZ Primary Care Provider [phone] Assessment No assessment recorded. Plan of Treatment [...] Address Organization Details Recorded Time Chronic hoarseness [id number] Active 2023 ILEANA KULKARNI MD [address] [place] [address], [phone], [facility] - [facility] 4 13:27:44 Gastroesoph ageal reflux disease without esophagitis 285029490 Active 2023 ILEANA KULKARNI MD [address] [place] [address], [phone], [facility] 4 13:30:14 Problem Notes None recorded. Procedures Surgical History Date Name Laterality Status Provider Name and Address Organization Details Recorded Time 05/20/20 24 Fiberoptic Laryngoscopy (Comprehensive) completed ILEANA KULKARNI MD [address] [place] [address], [phone], [facility] - Ear Nose [...] Updated DateTime 05/20/2024 157.48 cm 33.6 kg/m2 06066.2 g Toyin [place] [facility] [...] SNOMED-CT Code Diagnosis ICD10 Code Diagnosis Note [id number] ILEANA KULKARNI MD [facility] [address] [phone] 05/20/2024 13:04:07 05/20/2024 16:05:43 Chronic hoarseness 2968359258 105 R49.0 68-year-ol d female with a [...] future. Gastroesop hageal reflux disease without esophagitis 397855430 K21.9 Health Concerns Section Related Observation LastModified by Organization Detai ls LastModified Time None Recorded Concern Status LastModified by Organization Details LastModified Time None Recorded Advance Directives Directive None Recorded Payers Insurance Date Sequence Insurance Name Policy Number Policy Humphrey Covered Member ID Humphrey Member ID Guarantor Name 05/20/2024 1 [employer] [facility] - [facility]IC[place]ANTAGE - HMO) Reji Aja [id number] Reji Aja 05/20/2024 1 [facility] [place]ANTAGE - HMO) Reji Aja [id number] Radhabrunoguy Aja 11/21/2024 1 [facility] C[facility] ALLIANCE - DOS ON OR AFTER 2023 - SENIOR LIVING OPTIONS AND ONE CARE (MEDICARE REPLACEMENT/AD VANTAGE - PPO) Ximena Garcia Cano [id number] Radhafaheem Pereira Cano 11/16/2024 1 [facility] ALLIANCE - DOS ON OR AFTER 2023 - SENIOR LIVING OPTIONS (MEDICARE REPLACEMENT/AD VANTAGE - HMO) Reji Pereira Cano [id number] Radhafaheem Aja Notes Date Note Type Note Provider Name and Address Organization Details Recorded Time 05/20/2024 text/html 68 yo F presents today for hoarseness. Has reflux on omeprazole. Has DM. Has asthma. Voice today is hoarse. Mild sore throat. No trouble swallowing. No otalgia. ILEANA KULKARNI MD [address] [place] [address], [phone], [place] - [facility] 05/27/2024 13:31:24 OBGyn Episode No OBEpisode recorded.
== END 2025-04-24 10:15 | disposition home or self-care (01) ==
LOC: HO.HWS 09:43
PROVIDERS: PCP Internal Medicine; Visit Provider Obstetrics & Gynecology
DX: D25.9 Leiomyoma of uterus, unspecified (principal)
CPT/HCPCS: 99213

== ENCOUNTER → 2025-04-24 09:43 | Outpatient (BNVA) | payer OTHER, SELFPAY | PROVIDERS: PCP Internal Medicine; Visit Provider Obstetrics & Gynecology | DX: D25.9 Leiomyoma of uterus, unspecified (principal) | CPT/HCPCS: 99212 ==

== ENCOUNTER 2025-07-06 14:47 | Outpatient (AMB) | payer OTHER, SELFPAY ==
--- NOTE | 2025-07-06 14:53 | A.OFFVIS_ITS ---
Intake Visit Reasons: 2-3M follow up/ PVR Intake Note: Patient is present for 2-3M/PVR Urology Medication:VIBEGRON Antibiotic Allergy:PENICILLINS Blood Thinner:ASPIRIN TODAY'S PVR:58ML'S Corporate Controller Required: No Corporate Controller Services: Corporate Controller Present Corporate Controller Name: Alie [id number] Allergies Penicillins Allergy (Intermediate, Verified 07/06/25 15:14) DIZZINESS, RASH tramadol (TRAMADOL) Allergy (Intermediate, Verified 07/06/25 15:14) NAUSEA & VOMITING egg (Egg) Adverse Reaction (Intermediate, Verified 07/06/25 15:14) NAUSEA & VOMITING morphine Adverse Reaction (Intermediate, Verified 07/06/25 15:14) Chest Pain oxycodone Adverse Reaction (Verified 07/06/25 15:14) Dizziness FANY DRINK Allergy (Intermediate, Uncoded 07/06/25 15:14) NAUSEA & VOMITING Medication List - Last Reconciled 07/06/25 by MAGAN Ballesteros-KIERA acetaminophen 500 mg PO Q6H PRN amlodipine 5 mg PO DAILY aspirin 81 mg PO DAILY 90 days Held on 12/23/24. Instructions: Resume on 12/28/24. atenolol 50 mg PO DAILY atorvastatin 20 mg PO BEDTIME 90 days bisacodyl (Dulcolax (bisacodyl)) 10 mg (2 x 5 mg) PO BEDTIME blood pressure test kit-large ([facility] Blood Pressure Monitor kit) As directed buspirone 10 mg PO BID 90 days calcium carbonate-vitamin D3 500 mg-10 mcg (400 unit) (Oyster Shell Calcium- Vitamin D3) 1 tab PO DAILY 90 days cetirizine (All Day Allergy (cetirizine)) 10 mg PO DAILY PRN 90 days docusate sodium 100 mg PO BEDTIME fluticasone propionate 50 mcg/actuation (Flonase Allergy Relief) 1 spray intranasal BID 30 days gabapentin 100 mg PO BEDTIME 30 days hydrocortisone 2.5% (Anusol-HC) 1 appl GA BID-QID PRN lidocaine 5% (Lidoderm) 1 patch topical DAILY PRN MDD remove after 12 hours losartan 25 mg PO DAILY 90 days methylcellulose (laxative) (Citrucel) 500 mg PO DAILY pantoprazole 40 mg PO BID pioglitazone 15 mg PO DAILY sennosides (senna) 17.2 mg (2 x 8.6 mg) PO BEDTIME simethicone (Gas Relief (simethicone)) 125 mg PO TID PRN vibegron (Gemtesa) 75 mg PO DAILY 30 days walker As Directed HPI Comments Details: Ximena is a 69-year-old Tajik-speaking female patient of Dr. Bartlett who was accompanied by her PC at today's office visit. She has a past medical history of COVID-19, dysuria, diabetes, pelvic pain, fibroids, hiatal hernia, TIA, depression, asthma, chronic back pain, polyarthralgia, hypercholesteremia, and hypertension. She presents to the office today for follow-up of her lower urinary tract symptoms. In discussion with the patient today she reports to be doing and feeling well. She reports feeling Gemtesa has been helpful in episodes of nocturia and urinary urgency she had been experiencing. She does still feel she has urinary frequency at times however feels she is managing this well with current management. In office urinalysis results reviewed with the patient today. PVR 58 mL. Previous workup has included a retroperitoneal ultrasound 05/11 noting bilateral kidneys no hydronephrosis or renal calculi noted. 0.8 cm hypoechoic lesion in the right hepatic lobe. The bladder is well distended unremarkable. Bilateral ureteral jets are demonstrated. Pre void bladder volume is approximately 350 mL. Postvoid bladder volume is approximately 120 mL. Prominent uterus bulging/protruding into the bladder possibly related to fibroids could be evaluated with dictated pelvic ultrasound. She reports having followed up with eyelet cutter. She denies hematuria,foul smelling urine, changes to urinary stream, flank pain, fever, and or chills. We discussed bladder triggers/irritants. She otherwise denies any other issues or concerns at this time. [facility] Medical History Hemorrhoid Hospital discharge follow-up History of mammogram (~06/2024) PMB (postmenopausal bleeding) COVID-19 Impaired glucose regulation Dysuria Pelvic pain Burning with urination Fibroids Hiatal hernia Right shoulder pain Exposure to COVID-19 virus Mild depression TIA (transient ischemic attack) Asthma Back pain Abdominal pain Vaginal pruritus Vitamin D deficiency Left knee pain Left ankle pain Depression with anxiety Polyarthralgia Pure hypercholesterolemia Essential hypertension Surgical History History of tooth extraction History of colonoscopy History of cyst of breast History of hemicolectomy History of cholecystectomy History of appendectomy History of exploratory laparotomy Family History Father No problems noted. Mother Hypertension Stroke Diabetes Brother Leptospirosis Brother No problems noted. Family/Other FH: mental illness Son Hypertension Social History Household Members: Spouse Housing: Apartment Are you a primary career center director to a significant other at home: No Do you presently have visiting nurse or other home services: No Alcohol intake: never Patient Tobacco Use Status: Never used Tobacco e-Cigarette/Vaping Use: Never Used Second Hand Smoke Exposure: No service: No Current occupational status: disabled Sexual orientation: Straight/Heterosexual Gender identity: Female Cognitive needs: Yes Hearing needs: No Vision needs: Yes Female Reproductive History Menstrual Age of Menarche: 9 Review of Systems Const Reports no additional complaints Eyes Reports no additional complaints ENT Reports no additional complaints Card Reports as per HPI Resp Reports as per HPI GI Reports as per HPI Reports as per HPI Musc Reports as per HPI Neuro Reports as per HPI Psych Reports as per HPI Endo Reports no additional complaints Bin/Lymph Reports no additional complaints Aller/Immun Reports no additional complaints Physical Exam Const General: cooperative, healthy appearing, comfortable, no acute distress, well developed, alert and awake Orientation/consciousness: patient oriented x3 Limitations: language barrier HEENT Head: Yes normal to inspection, Yes normocephalic and Yes atraumatic Ears: hearing grossly normal bilaterally Eyes General: appearance normal, both eyes and all related structures Neck Neck: Yes normal visual inspection and Yes trachea midline Chest Chest palpation & inspection: normal inspection of the chest Resp Effort & Inspection: normal respiratory effort and able to speak in complete sentences Cardio Rate: regular rate GI Inspection: Yes normal to inspection General: Yes no CVA tenderness Back/Spine/Pelvis Back: no CVA tenderness Skin General skin exam: no rashes or lesions noted Neuro General: patient oriented x3 Extrem General: Yes normal to inspection Psych Appearance: grossly normal and well kempt Mental Status: mental status grossly normal Speech and movement: Normal speech and movement present and Clear speech present Affect: normal affect Attitude: cooperative Thought process: Normal thought process present Thought content: Normal thought content present Insight: Fair insight present (Psych) Judgement: Fair judgement present (Psych) Office Procedures Post Void Residual Post Residual Void Post Void Residual (PVR): 58 [id number] Void Residual by ultrasound Results AMB Urinalysis, Automated UA Leukoctes 70 Merlin/uL Last Edit by CHEY Rich on 07/06/25 15:16 UA Nitrite Negative Last Edit by Allyssa Mo [facility] on 07/06/25 15:16 UA Urobilinogen 0.2 mg/dL Last Edit by Allyssa Mo [facility] on 07/06/25 15:1 6 UA Protein 30 mg/dL Last Edit by Allyssa Mo [facility] on 07/06/25 15:16 UA pH 6.0 Last Edit by Allyssa Mo [facility] on 07/06/25 15:16 UA Blood 0 [place]/uL Last Edit by Allyssa Mo [facility] on 07/06/25 15:16 UA Specific [place] 1.020 Last Edit by Allyssa Mo [facility] on 07/06/25 15: 16 UA Ketone Positive Last Edit by Allyssa Mo [facility] on 07/06/25 15:16 UA Bilirubin 1 mg/dL Last Edit by Allyssa Mo [facility] on 07/06/25 15:16 UA Glucose 0 mg/dL Last Edit by Allyssa Mo [facility] on 07/06/25 15:16 Assessment & Plan Assessment & Plan (1) Lower urinary tract symptoms: Code(s): R39.9 - Unspecified symptoms and signs involving the genitourinary system Category: Medical (2) Mixed stress and urge urinary incontinence: Code(s): N39.46 - Mixed incontinence Category: Medical Plan In office urinalysis results reviewed with the patient today; as noted above. PVR 58 mL. Continue Gemtesa; refill provided. She reports be happy with current voiding parameters. She currently denies any bothersome urinary issues or concerns. We did discussed the importance of avoiding bladder triggers and irritants. We also discussed the importance of timed/scheduled voiding. Follow-up in 6 months with PVR; or sooner with any issues, concerns, and or questions Orders: Orders AMB Urinalysis Automated Today Z13.9 - Encounter for screening, unspecified Medications: Changed From vibegron (Gemtesa) 75 mg PO DAILY 30 days 30 tabs 3RF N32.81 - Overactive bladder To vibegron (Gemtesa) 75 mg PO DAILY 90 tabs 3RF 90 days N32.81 - Overactive bladder Patient Instructions: The patient had an opportunity to ask questions regarding the treatment plan. All questions were answered. Physical exam, labs, and imaging were discussed and reviewed in detail. As well as risks, benefits, and discussion of treatment choices. No major barriers to understanding were identified. The patient expressed understanding and agreement with the above treatment plan. The patient was made aware they should contact our office by phone for worsening of their current condition, the appearance of new symptoms, or with any questions or concerns. Compliance is encouraged with any medications and follow up testing that is ordered. It is a privilege to be allowed the opportunity to participate in? your urological care.? Again, if you have any questions or concerns If you have any questions or concerns please do not hesitate to contact me. The office is [phone]. This note is constructed using voice recognition software. While every effort has been made to ensure accuracy manager biologics errors may have been included. Yours sincerely, TIEN Ballesteros Coding Level of Care Code Est Pt Level 3 (59983) Complex EM visit Add On G2211 Diagnoses Lower urinary tract symptoms R39.9 Mixed stress and urge urinary incontinence N39.46 CPT Codes Post Residual Void - PVR CPT Code: 11034-Fdpx Void Residual by ultrasound ([id number])
--- OUTSIDE RECORDS SUMMARY | 2025-07-06 16:30 | XMS_ITS | Clinical Summary ---
Author Organization [facility] Address [address] [place] [address] Care Team Providers Care Muffle Operator Name Role Phone Unavailable Primary Care [...] powder TAKE DIRECTED BY [facility]OLOG[facility] DEPARTMENT AT [facility] 03/20/20 22 Active SENNA 8.6 mg tablet [...] Health Maintenance Due Date Last Done Comments Hepatitis C Screening 1955 Lipid Screening 1955 [...] Prophy 04/12/2023 04/10/2022 Hypertension Screening (#1) 09/19/2023 Alcohol and Drug Screen 10/19/2024 Depression Annual Screen 10/19/2024 [id number] (1 - season) 2025 Imm-Influenza (#1) 2025 Dental FMX/Pano 05/24/2027 05/22/2022, 04/10/2022 Procedures [...] Most Recently Relevant to Health Maintenance [place] S[place] DENTAL - DENTAL Member Subscriber Plan / Payer (Ef fective 2023-) Name:Ximena Lund Relation to Subscriber:Self Name:Ximena Lund Payer ID:[id number] Group ID:Not on file Type:Medicare Address: [address] SAFETY NET DENTAL - DENTAL
--- OUTSIDE RECORDS SUMMARY | 2025-07-06 16:30 | XMS_ITS | Clinical Summary ---
Author Organization [facility] ity Address [address] [place] [address] Care Team Providers Care Partner Marketing Manager Name Role Phone Unavailable Primary Care [...] 2) 12/22/2003 Colorectal Cancer Screening: Colonoscopy 11/13/2023 Falls Risk Assessment 11/13/2023 Hepatitis C Screening 11/13/2023 Osteoporosis Screening (Bone Density Screening) 11/13/2023 Social Influencers of Health Screening 11/13/2023 Depression Screening 10/19/2024 COVID-19 Vaccine ( - 2023-2 5 season) 2025 Influenza Vaccine (#1) 2025 RSV Immunization Adult Patie nts (1 [...] complete this topic RSV Immunization Patients Un ysiel 20 months Aged Out No longer eligible b ased on patient's age to complete this topic Varicella Vaccines Aged Out No longer eligible based on patient's age to complete this topic
== END 2025-07-06 15:22 | disposition home or self-care (01) ==
LOC: HO.HUSH 14:48
PROVIDERS: PCP Internal Medicine; Visit Provider Nurse Practitioner Family
DX: R39.9 Unspecified symptoms and signs involving the genitourinary system (principal); N39.46 Mixed incontinence; Z13.9 Encounter for screening, unspecified
CPT/HCPCS: 99213; G2211

== ENCOUNTER → 2025-07-06 14:47 | Outpatient (BNVA) | payer OTHER, SELFPAY | PROVIDERS: PCP Internal Medicine; Visit Provider Nurse Practitioner Family | DX: N39.46 Mixed incontinence (principal); R39.9 Unspecified symptoms and signs involving the genitourinary system | CPT/HCPCS: 51798; 81003; 99212 ==

== ENCOUNTER 2025-07-10 16:51 | Outpatient (AMB) | payer OTHER, SELFPAY ==
--- NOTE | 2025-07-10 17:15 | A.OFFPC_ITS ---
Vital Signs 07/10/25 17:16 Height 5 ft 1 in Weight 177 lb 4 oz BMI 33.5 BP 126/80 Blood Pressure Location Lt brachial Position Sitting Pulse 75 Pulse Source Pulse Oximeter Pulse Oximetry (%) 98 Oxygen Delivery Method Room Air Intake Visit Reasons: Annual Exam- A1C needed. Coal Conveyor Operator Required: No Accompanied by: Self / Same As Patient Allergies Penicillins Allergy (Intermediate, Verified 07/10/25 17:41) DIZZINESS, RASH tramadol (TRAMADOL) Allergy (Intermediate, Verified 07/10/25 17:41) NAUSEA & VOMITING egg (Egg) Adverse Reaction (Intermediate, Verified 07/10/25 17:41) NAUSEA & VOMITING morphine Adverse Reaction (Intermediate, Verified 07/10/25 17:41) Chest Pain oxycodone Adverse Reaction (Verified 07/10/25 17:41) Dizziness FANY DRINK Allergy (Intermediate, Uncoded 07/10/25 17:41) NAUSEA & VOMITING Medication List - Last Reconciled 07/10/25 by Aure Horton MD acetaminophen 500 mg PO Q6H PRN amlodipine 5 mg PO DAILY aspirin 81 mg PO DAILY 90 days Held on 12/23/24. Instructions: Resume on 12/28/24. atenolol 50 mg PO DAILY atorvastatin 20 mg PO BEDTIME 90 days bisacodyl (Dulcolax (bisacodyl)) 10 mg (2 x 5 mg) PO BEDTIME blood pressure test kit-large ([facility] Blood Pressure Monitor kit) As directed buspirone 10 mg PO BID 90 days calcium carbonate-vitamin D3 500 mg-10 mcg (400 unit) (Oyster Shell Calcium- Vitamin D3) 1 tab PO DAILY 90 days cetirizine (All Day Allergy (cetirizine)) 10 mg PO DAILY PRN 90 days docusate sodium 100 mg PO BEDTIME fluticasone propionate 50 mcg/actuation (Flonase Allergy Relief) 1 spray intranasal BID 30 days gabapentin 100 mg PO BEDTIME 30 days hydrocortisone 2.5% (Anusol-HC) 1 appl NV BID-QID PRN lidocaine 5% (Lidoderm) 1 patch topical DAILY PRN MDD remove after 12 hours losartan 25 mg PO DAILY 90 days methylcellulose (laxative) (Citrucel) 500 mg PO DAILY pantoprazole 40 mg PO BID pioglitazone 15 mg PO DAILY sennosides (senna) 17.2 mg (2 x 8.6 mg) PO BEDTIME simethicone (Gas Relief (simethicone)) 125 mg PO TID PRN vibegron (Gemtesa) 75 mg PO DAILY 90 days walker As Directed Tobacco use date assessed: 07/10/25 Fall risk assessment: No Falls in past year Last assessed Fall Risk: 07/10/25 Dental Screening Dental Screen Date: 07/10/25 Did you have a dental visit in the last 12 months?: Yes Did you have a dental problem in the last 6 months where you did not have access to dental care?: No Was dental information given to patient?: Patient has dentist HPI HPI Comments History of Present Illness Details The patient is a 69-year-old female presenting with headache, right hip pain, and for a routine physical examination. The headache has been occurring frequently in a specific area for the past few months. The patient reports that the headache has been persistent and has not improved over time. She has diabetes mellitus type 2 with an A1c within goal being less than 7%. Blood pressure also within goal. She also has mild major depression stable with escitalopram. The right hip pain occurs during ambulation and has been present for a couple of months. The pain is localized to the right side and affects the patient's mobility. The patient has a history of allergies to penicillin, tramadol, aloe vera, mo rphine, and oxycodone. She is currently taking multiple medications including Tylenol, amlodipine, aspirin, atenolol, spironolactone, calcium with vitamin D, cetirizine, docusate, gabapentin, losartan, citrucel, pantoprazole, pioglitazone, and senna. The patient's father without any known health issues, while her mother had a history of diabetes, depression, and stroke. The patient denies any history of smoking or alcohol use. [facility] Medical History (Updated 07/10/25 @ 17:55 by Aure Horton MD) Hemorrhoid Hospital discharge follow-up History of mammogram (~06/2024) PMB (postmenopausal bleeding) COVID-19 Impaired glucose regulation Dysuria Pelvic pain Burning with urination Fibroids Hiatal hernia Right shoulder pain Exposure to COVID-19 virus Mild depression TIA (transient ischemic attack) Asthma Back pain Abdominal pain Vaginal pruritus Vitamin D deficiency Left knee pain Left ankle pain Depression with anxiety Polyarthralgia Pure hypercholesterolemia Essential hypertension Surgical History History of tooth extraction History of colonoscopy History of cyst of breast History of hemicolectomy History of cholecystectomy History of appendectomy History of exploratory laparotomy Family History Father No problems noted. Mother Hypertension Stroke Diabetes Brother Leptospirosis Brother No problems noted. Family/Other FH: mental illness Son Hypertension Social History Household Members: Spouse Housing: Apartment Are you a primary personal care aide to a significant other at home: No Do you presently have visiting nurse or other home services: No Alcohol intake: never Patient Tobacco Use Status: Never used Tobacco e-Cigarette/Vaping Use: Never Used Second Hand Smoke Exposure: No service: No Current occupational status: disabled Sexual orientation: Straight/Heterosexual Gender identity: Female Cognitive needs: Yes Hearing needs: No Vision needs: Yes Female Reproductive History Menstrual Age of Menarche: 9 Questionnaire Thrive Questionnaire Date Thrive assessed: 03/15/25 I am a: Patient What is your living situation today?: I have a steady place to live Within the past 12 months, did the food you bought not last and you didn't have the money to get more?: I choose not to answer this question Within the past 12 months, did you worry whether your food would run out before you got money to buy more?: I choose not to answer this question Do you have trouble paying for medicines?: No Do you have trouble getting transportation to medical appointments?: No Do you have trouble paying your heating and electricity bill?: No Do you have trouble taking care of your child, family member or friend?: No Do you have trouble with day-to-day activities such as bathing, preparing meals, shopping, managing finances, etc.?: Yes Are you currently unemployed and looking for a job?: No Are you interested in more education?: No Please select the resources that you would like help with: Care for elder or disabled Currently or been in a relationship where the following occur: No concerns reported THRIVE Score: 0 AUDIT C Alcohol Use Questionnaire (AUDIT-C) 1. How often do you have a drink containing alcohol?: Never 3. How often do you have six or more drinks on one occasion?: Never Total Score: 0 Score Reviewed/Action Taken: No JESSICA-7 AMB Questionnaire JESSICA-7 Date JESSICA - 7 assessed: 11/09/24 Source: Developed by Drs. Dagoberto Mercer, Adry Valentin, Néstor Garcia and colleagues, with an educational zheng from [employer]. Review of Systems Const All systems reviewed & are unremarkable except as noted in HPI and below Card Denies chest pain at rest, Denies chest pain with activity, Denies edema, Denies irregular heart rhythm, Denies claudication, Denies dyspnea, Denies dyspnea on exertion, Denies orthopnea, Denies paroxysmal nocturnal dyspnea and Denies slow heart rate Resp Denies cough, Denies dyspnea and Denies dyspnea on exertion GI Denies abdominal pain, Denies change in bowel habits, Denies excessive flatus, Denies nausea and Denies vomiting Denies urinary incontinence, Denies urinary hesitancy and Denies urinary urgency Physical exam (Primary Care) Vital Signs: Last Vital Signs Pulse 75 07/10/25 17:16 BP 126/80 07/10/25 17:16 Pulse Ox 98 07/10/25 17:16 Oxygen Delivery Method Room Air 07/10/25 17:16 BMI result Body Mass Index 33.5 BMI Assessment/Plan discussion: High BMI High, discussed plan: lifestyle, weight reduction, dietary and physical activity Tobacco/Smoking Status: Tobacco use Status Tobacco use date assessed 07/10/25 07/10/25 17:20 Patient Tobacco Use Status Never used Tobacco 07/10/25 17:20 e-Cigarette/Vaping Use Never Used 07/10/25 17:20 Thrive Assessment: Date of Thrive Assessment Date Thrive assessed 03/15/25 07/10/25 17:20 Currently or been in a relationship where the following occur: No concerns reported Const Orientation/consciousness: patient oriented x3 HENMT Head: Yes normal to inspection, Yes normocephalic and Yes atraumatic Ears: external ears normal Eyes General: appearance normal, both eyes and all related structures Eyelids: Yes eyelids normal Conjunctivae: conjunctivae normal Neck Neck: Yes normal visual inspection and Yes supple Resp Effort & Inspection: normal respiratory effort Auscultation: clear to auscultation bilaterally Cardio Jugular venous distension: no JVD Rate: regular rate Rhythm: regular rhythm Heart sounds: S1 normal heart sound present and S2 normal heart sound present GI Inspection: Yes normal to inspection Palpation (GI): Soft to palpation and nontender Auscultation: normal bowel sounds Skin General skin exam: no rashes or lesions noted Neuro General: patient oriented x3 and no focal motor deficits Extrem General: Yes full ROM Psych Appearance: grossly normal Results AMB Hemoglobin A1c AMB Hemoglobin A1c 6.7 % Last Edit by DAVID Campos on 07/10/25 17 :44 Results Reviewed Results Reviewed: Laboratory Last Values Hgb A1c (Clinic) 6.7 % (4.0-6.0) H 07/10/25 17:29 Coding Level of Care Code Est Pt Level 3 (85089) Est Pt Prev Care >65y(34022) Diagnoses Physical exam Z00.00 Persistent headaches R51.9 Type 2 diabetes mellitus without complication, without long-term current use of insulin E11.9 Diabetes mellitus type: type 2 Diabetes mellitus long term care phlebotomist insulin use: without long term care phlebotomist use Diabetes mellitus complication status: without complication Mild depression F32.0 Right hip pain M25.551 Time Spent (min) 34 Assessment & Plan Assessment & Plan (1) Physical exam: Code(s): Z00.00 - Encounter for general adult medical examination without abnormal findings Category: Medical (2) Persistent headaches: Code(s): R51.9 - Headache, unspecified Category: Medical (3) Diabetes mellitus: Code(s): E11.9 - Type 2 diabetes mellitus without complications Category: Medical Qualifiers: Diabetes mellitus type: type 2 Diabetes mellitus long term care phlebotomist insulin use: without long term care phlebotomist use Diabetes mellitus complication status: without complication Qualified Code(s): E11.9 - Type 2 diabetes mellitus without complications (4) Mild depression: Code(s): F32.0 - Major depressive disorder, single episode, mild Category: Medical (5) Right hip pain: Code(s): M25.551 - Pain in right hip Category: Medical Plan Plan 1. Physical exam Repeat in a year. 2. Headache An MRI of the head is planned to further evaluate the persistent headache. 3. Right Hip Pain A hip X-ray is planned to assess the cause of the right hip pain. Orders: Orders MR head/brain wo con Today R51.9 - Headache, unspecified Lipid Panel Today E78.5 - Hyperlipidemia, unspecified Microalbumin, Random (w Creat) Today R80.9 - Proteinuria, unspecified Vitamin D 25-OH Total Today E55.9 - Vitamin D deficiency, unspecified Vitamin B12 and Folate Today E53.8 - Deficiency of other specified B group vitamins AMB Hemoglobin A1c Today Z13.9 - Encounter for screening, unspecified XR hip RT min 2V Today M25.551 - Pain in right hip Comprehensive [place]. Panel Fast Today I10 - Essential (primary) hypertension
[2025-07-10 17:16] VITALS: BP 126/80; PULSE 75; O2SAT 98; BMI 33.5
--- OUTSIDE RECORDS SUMMARY | 2025-07-10 18:23 | XMS_ITS | Clinical Summary ---
Author Organization [facility] Address [address] [place] [address] Care Team Providers Care Plastic Fabricator Name Role Phone Unavailable Primary Care Provider [...] powder TAKE DIRECTED BY GASTRO[facility]OLOGY DEPARTMENT AT [facility] 03/20/20 22 Active SENNA 8.6 [...] Drug Screen 10/19/2024 Depression Annual Screen 10/19/2024 [id number] (1 - season) 2025 Imm-Influenza (#1) 2025 [...] Most Recently Relevant to Health Maintenance [place] SAF[place]Y NET DENTAL - DENTAL Member Subscriber Plan / Payer (Ef fective 2023-) Name:Ximena Lund Relation to Subscriber:Self Name:Ximena Lund Payer ID:[id number] Group ID:Not on file Type:Medicare Address: [address] SAFETY NET DENTAL - DENTAL
--- OUTSIDE RECORDS SUMMARY | 2025-07-10 18:23 | XMS_ITS | Clinical Summary ---
Author Organization [facility] Address [address] [place] [address] Care Team Providers Care Retail Coordinator Name Role Phone Unavailable Primary Care [...]
== END 2025-07-10 17:55 | disposition home or self-care (01) ==
LOC: HO.HMCH 16:51
PROVIDERS: PCP Internal Medicine; Visit Provider Internal Medicine
DX: Z00.00 Encounter for general adult medical examination without abnormal findings (principal); R51.9 Headache, unspecified; E11.9 Type 2 diabetes mellitus without complications; F32.0 Major depressive disorder, single episode, mild; M25.551 Pain in right hip

== ENCOUNTER → 2025-07-10 16:51 | Outpatient (BNVA) | payer OTHER, SELFPAY | PROVIDERS: PCP Internal Medicine; Visit Provider Internal Medicine | DX: Z00.00 Encounter for general adult medical examination without abnormal findings (principal); R51.9 Headache, unspecified; M25.551 Pain in right hip; E11.9 Type 2 diabetes mellitus without complications; F32.0 Major depressive disorder, single episode, mild; E78.5 Hyperlipidemia, unspecified; E53.8 Deficiency of other specified B group vitamins; R80.9 Proteinuria, unspecified; E55.9 Vitamin D deficiency, unspecified | CPT/HCPCS: 83036; 99212; 99397 ==

== ENCOUNTER 2025-08-07 09:40 | Outpatient (REF) | payer OTHER, SELFPAY ==
--- NOTE | ~2025-08-07 | XR_ITS ---
EXAMINATION: XR HIP, RIGHT CLINICAL INFORMATION: M25.551 - Pain in right hip COMPARISON: 11/09/2024. TECHNIQUE: Two views of the right hip. FINDINGS: No fracture, dislocation, or suspicious bone lesion. Normal alignment. Mild changes of osteoarthrosis of the right hip joint are present with superolateral acetabular spurring and minimal subcapital spurring. Normal femoral head contour without evidence of AVN. Normal acetabular coverage. No soft tissue abnormalities. XR/XR hip RT min 2V IMPRESSION: 1. No acute findings of the right hip. 2. Mild degenerative arthrosis. Electronically signed by: Jesse Menendez MD 08/07/2025 10:05 AM EDT
== END 2025-08-07 09:41 | disposition home or self-care (01) ==
LOC: HO.XRAY 09:40
PROVIDERS: PCP Internal Medicine; Visit Provider Internal Medicine
DX: M25.551 Pain in right hip (principal)
CPT/HCPCS: 73502

== ENCOUNTER → 2025-08-07 09:44 | Outpatient (BNV) | payer OTHER, SELFPAY | PROVIDERS: PCP Internal Medicine; Visit Provider Radiology Diagnostic Radiology | DX: M16.11 Unilateral primary osteoarthritis, right hip (principal) | CPT/HCPCS: 73502 ==

== ENCOUNTER 2025-10-03 10:33 | Outpatient (REF) | payer OTHER, SELFPAY ==
--- OUTSIDE RECORDS SUMMARY | 2025-10-03 09:45 | XMS_ITS | Encounter Summary ---
Author Organization [employer] Address [address] [place] [address] Care Team Providers Care Military Science Teacher Name Role Phone Libra Hyman MD Primary Care Provider [phone] Reason for Visit * Reason Comments Establish Care Encounter Details Date Type Department Care Team (Late st Contact Info) Description 10/03/2025 9:45 AM EST Office Visit [facility] [address], [place] [phone] Libra Hyman MD [address], [place] [phone] Essential hypertension (Primary Dx); Encounter for immunization Social History Tobacco Use Types Packs/Day Years Used Date Smoking Tobacco: Never Assessed Depression Answer Date Recorded Patient Health Questionnaire-9 Score 6 10/03/2025 Patient Health Questionnaire-9 Score 6 10/03/2025 Last PHQ-9: Questionnaire Data Not on file 1 12/04/2024 Housing Stability Answer Date Recorded What is your housing situation today? I have denia sánchez 09/22/[address] you li ve. Do you have problems with any of the following? None of the above 09/22/2025 Food Insecurity Answer Date Recorded Within the past 12 months, y ou worried that your food would run out before you got money to buy more: Never True 09/22/2025 Within the past 12 months,th e food you bought just didn't last and you didn't have enough money to get more: Never True 02/2025 Transportation Answer Date Recorded In the past 12 months, has l ack of transportation kept you from medical appts, meetings, work or from getting things needed for daily living? No 09/22/2025 Utilities Answer Date Recorded In the past 12 months, has t he electric, gas, oil or water company threatened to shut off services in your home? No 09/22/2025 Depression Answer Date Recorded Patient Health Questionnaire-2 Score 2 10/03/2025 Internet Access Answer Date Recorded Internet Access Q1 Yes 09/22/2025 Internet Access Q2 Not on file 09/22/2025 Comments Unknown Sex and Gender Information Value Date Recorded Sex Assigned at Female 08/18/2022 10:20 AM EDT Legal Sex Female 10:20 AM EDT Gender Identity Female 08/18/2022 10:20 AM EDT Sexual Orientation Straight 08/18/2022 10 :20 AM EDT documented as of this encounter Last Filed Vital Signs Vital Sign Reading Time Taken Comments Blood Pressure 138/84 10/03/2025 9:40 AM EST Pulse 71 10/03/2025 9:40 AM EST Temperature 36.3 C (97.3 F) 10/03/2025 9:40 AM EST Respiratory Rate 18 10/03/2025 9:40 AM EST Oxygen Saturation 96% 10/03/2025 9:40 AM EST Inhaled Oxygen Concentration - - Weight 80.7 kg (178 lb) 10/03/2025 9:40 AM EST Height 154.9 cm (5' 1 ) 10/03/2025 9:40 AM EST Body Mass Index 33.63 10/03/2025 9:40 AM EST documented in this encounter Functional Status * Over the past 2 weeks, how often have you been bothered by any of the following problems? Question Answer Date of Assessment Author Patient Health Questionnaire-2 Score 2 10/03/2025 9:48 AM EST Johanna Casanova MA * Little interest or pleasure in doing things Answer Date of Assessment Author Several days 10/03/2025 9:48 AM EST Johanna Peck MA * Feeling down, depressed, or hopeless Answer Date of Assessment Author Several days 10/03/2025 9:48 AM EST Johanna Peck MA * Trouble falling or staying asleep, or sleeping too much Answer Date of Assessment Author Several days 10/03/2025 9:48 AM EST Johanna Peck MA * Feeling tired or having little energy Answer Date of Assessment Author Several days 10/03/2025 9:48 AM EST Johanna Peck MA * Poor appetite or overeating Answer Date of Assessment Author Not at all 10/03/2025 9:48 AM Johanna Garcia MA * Feeling bad about yourself - or that you are a failure or have let yourself or your family down Answer Date of Assessment Author Not at all 10/03/2025 9:48 AM Johanna Garcia MA * Trouble concentrating on things, such as reading the newspaper or watching television Answer Date of Assessment Author Several days 10/03/2025 9:48 AM Johanna Garcia MA * Moving or speaking so slowly that other people could have noticed? Or the opposite - being so fidgety or restless that you have been moving around a lot more than usual. Answer Date of Assessment Author Several days 10/03/2025 9:48 AM Johanna Garcia MA * Thoughts that you would be better off or hurting yourself in some way Answer Date of Assessment Author Not at all 10/03/2025 9:48 AM Johanna Garcia MA * Patient Health Questionnaire-9 Score Answer Date of Assessment Author 6 10/03/2025 9:48 AM Johanna Garcia MA * Over the last 2 weeks, how often have you been bothered by any of the following problems? Question Answer Date of Assessment Author Feeling nervous, anxious, or on edge 1 10/03/2025 9:48 AM Johanna Vora MA Not being able to stop or control worrying 1 10/03/2025 9:48 AM Johanna Vora MA Worrying too much about different things 1 10/03/2025 9:48 AM Johanna Vora MA Trouble relaxing 1 10/03/2025 9:48 AM Johanna Aguirre MA Being so restless that it is hard to sit still 1 10/03/2025 9:48 AM Johanna Vora MA Becoming easily annoyed or irritable 1 10/03/2025 9:48 AM Johanna Vora MA Feeling afraid as if something awful might happen 1 10/03/2025 9:48 AM EST Johanna Brambila MA JESSICA-7 Total Score 7 10/03/2025 9:48 AM EST Johanna Casanova MA * How difficult have these problems made it for you to do your work, take care of things at home, or get along with other people? Answer Date of Assessment Author Somewhat difficult 10/03/2025 9:48 AM EST Johanna Carranza MA documented as of this encounter Plan of Treatment Not on file documented as of this encounter Procedures Procedure Name Priority Date/Time Associated Diagnosis Comments LIPID PANEL, STANDARD Routine 10/03/2025 10:39 AM EST Essential hypertension COMPREHENSIVE METABOLIC PANEL Routine 10/03/2025 10:39 AM EST Essential hypertension documented in this encounter Results * (ABNORMAL) Lipid Panel, Standard (10/03/2025 10:39 AM EST) Triglycerides 100 <150 mg/dL [facility] Comment:Desirable Triglyceri de: less than 150 mg/dLBorderline High Triglyceride 150-199 mg/dLHigh Triglyceride: 200-499 mg/dLVery High Triglyceride: greater than or equal to 5OO mg/dL Cholesterol 93 <200 mg/dL [facility] Comment:Desirable Cholestero l: less than 200 mg/dLBorderline High Cholesterol: 200-239 mg/dLHigh Cholesterol: greater than 239 mg/dL LDL Cholesterol Calculated 40 <100 mg/dL [facility] Comment:Desirable LDL: less than 100 mg/dLNear Optimal/Above Optimal LDL: 110- 129 mg/dLBorderline High LDL: 130-159 mg/dLHigh LDL: 160-189 mg/dLVery High LDL: greater than or equal to 190 mg/dL HDL Cholesterol 33(L) >40 mg/dL [facility] Comment:Desirable HDL: great er than 40 mg/dL Note: This HDL assay may give artificially low results in patients with liver disease. Blood Venous blood specimen / Unknown 10/03/2025 10:39 AM EST 10/03/2025 11:23 AM EST us Libra Hyman MD LAB BLOOD ORDERABLES Final Res ult Performing Organization Address City/[facility]/ZIP Co de Phone Number [facility] [address] [place] [phone] * (ABNORMAL) Comprehensive Metabolic Panel (10/03/2025 10:39 AM EST) Sodium 142 135 - 145 mmol/L [facility] Potassium 4.3 3.3 - 5.1 mmol/L [facility] Chloride 106 96 - 108 mmol/L [facility] Carbon Dioxide 28 22 - 29 mmol/L [facility] Anion Gap 12 12 - 20 [facility] Urea Nitrogen (BUN) 10 9 - 16 mg/dL [facility] Creatinine, Serum 0.92 0.5 - 1.4 mg/dL [facility] Estimated Glomerular Filt Rate >60 [facility] Comment:Chronic Kidney Disea se: Estimated GFR < 60 mL/min/[id number] Kidney Disease: Estimated GFR < 15 mL/min/1.73m2 Glucose 147(H) 60 - 115 mg/dL [facility] Calcium 9.1 8.4 - 10.2 mg/dL [facility] Bilirubin, Total 0.4 0.0 - 1.0 mg/dL [facility] Aspartate Amino Transferase 35(H) 5 - 31 U/L [facility] Alanine Aminotransferase 22 0 - 31 U/L [facility] Total Protein 7.3 6.5 - 8.0 g/dL [facility] Albumin Level 4.2 3.5 - 5.0 g/dL [facility] Alkaline Phosphatase 166(H) 39 - 117 U/L [facility] Blood Venous blood specimen / Unknown 10/03/2025 10:39 AM EST 10/03/2025 11:23 AM EST us Libra Hyman MD LAB BLOOD ORDERABLES Final Res ult [facility] [address] [place] [phone] documented in this encounter Visit Diagnoses Diagnosis Essential hypertension- Primary Unspecified essential hypertension Encounter for immunization documented in this encounter Additional Health Concerns Assessment Noted Time PHQ-9 Depression Total Score: 6 10/03/20 9:48 AM EST documented as of this encounter Care Teams Military Science Teacher Relationship Specialty Start Date End Date Libra Hyman MD [address] [place] [id number] PCP - General Family Medicine 10/03/25 documented as of this encounter
[2025-10-03 11:26] LABS: MANUAL DIFF FLAG NO
[2025-10-03 11:35] LABS: Hematocrit 38.0 % (37.0-47.0); Hemoglobin 12.0 g/dl (12.0-16.0); Imm Gran Abs Auto 0.02 X10*3/uL (0.00-0.03); Imm Gran Pct Auto 0.2 % (0.0-0.4); Lymphocytes Absolute Auto 1.5 X10*3/uL (1.2-4.9); Mean Corpuscular HGB Conc 31.6 g/dl (31.0-35.0); Mean Corpuscular Hemoglobin 28.8 pg (27.0-33.0); Mean Corpuscular Volume 91.1 fL (80.0-98.0); NRBC Abs Auto 0.000 X10*3/uL (0.0-0.012); NRBC Pct Auto 0.0 /100WBC (0.0-0.2); Platelet Count 290 X10*3/uL (160-400); Red Blood Count 4.17 X10*6/uL (4.20-5.50); White Blood Count 8.5 X10*3/uL (4.8-10.8)
[2025-10-03 12:07] LABS: Microalbum/Creatinine Ratio Ur 10.4 ug/mg cr (<30)
[2025-10-03 12:11] LABS: Alanine Aminotransferase 22 U/L (0-31); Albumin Level 4.2 g/dL (3.5-5.0); Alkaline Phosphatase 166 U/L (39-117); Anion Gap 12 (12-20); Aspartate Amino Transferase 35 U/L (5-31); Blood Urea Nitrogen 10 mg/dL (9-16); Calcium 9.1 mg/dL (8.4-10.2); Carbon Dioxide 28 mmol/L (22-29); Chloride 106 mmol/L (96-108); Cholesterol 93 mg/dL (<200); Estimated Glomerular Filt Rate > 60; HDL Cholesterol 33 mg/dL (>40); Iron 43 mcg/dL (30-160); Percent Iron Saturation 17 % (15-50); Potassium 4.3 mmol/L (3.3-5.1); Sodium 142 mmol/L (135-145); Thyroid Stimulating Hormone 1.45 uIU/mL (0.32-4.0); Total Iron Binding Capacity 256 mcg/dL (228-428); Total Protein 7.3 g/dL (6.5-8.0); Triglycerides 100 mg/dL (<150); Unsaturated Iron Binding 213 ug/dL
[2025-10-03 12:36] LABS: Folate 9.5 ng/mL (> or = 4.0); Vitamin B12 416 pg/mL (200-900)
--- OUTSIDE RECORDS SUMMARY | 2025-10-03 13:20 | XMS_ITS | Clinical Summary ---
Author Organization [facility] Address [address] [place] [address] Care Team Providers Care Soil Science Teacher Name Role Phone Unavailable Primary Care [...] Last Done Comments Breast Cancer Screening 1955 Colorectal Cancer Screening: Colonoscopy 1955 DTaP,Tdap,and Td Vaccines (1 - Tdap) 1972 Pneumococcal Vaccine: 50+ Ye ars (1 of 1 - PCV) 12/22/2003 Zoster Vaccines (1 of 2) 12/22/2003 Falls Risk Assessment 11/13/2023 Hepatitis C Screening 11/13/2023 Osteoporosis Screening (Bone Density Screening) 11/13/2023 Social Influencers of Health Screening 11/13/2023 Depression Screening 10/19/2024 COVID-19 Vaccine (1 - 2024-2 6 season) 2025 Influenza Vaccine (#1) 2025 RSV [...]
--- OUTSIDE RECORDS SUMMARY | 2025-10-03 13:20 | XMS_ITS | Clinical Summary ---
Author Organization [employer] Address [address] [facility] [address] [place] [address] Care Team Providers Care Quality Assurance Group Leader Name Role Phone Libra Hyman MD Primary Care Provider [phone] Allergies Active Allergy Reactions Criticality Noted Date Comments Egg Protein (Egg White) Other 06/28/2013 Penicillin V Unknown 11/05/2010 Medications albuterol 108 (90 Base) MCG/ACT inhaler INHALE 2 PUFFS 4 TIMES A DAY FOR SHORTNESS OF BREATH OR WHEEZING FOR 7 DAYS 5 Active azithromycin (Zithromax) 250 MG tablet TAKE 2 TABLETS BY MOUTH TODAY, THEN TAKE 1 TABLET DAILY FOR 4 DAYS DIRECTED 5 Active Oyster Shell Calcium/D3 500-10 MG-MCG tablet Take 1 tablet by mouth Once per day. 5 Active cetirizine (ZyrTEC) 10 MG tablet TAKE 1 TABLET (10 MG) BY MOUTH DAILY NEEDED FOR ALLERGY SYMPTOMS FOR 90 DAYS Active docusate sodium (Colace) 100 MG capsule Take 100 mg by mouth. Active doxycycline (Vibra-Tabs) 100 MG tablet Take 1 tablet by mouth 2 times daily. Active fluticasone (Flonase) 50 MCG/ACT nasal spray SPRAY 1 SPRAY INTRANASALLY 2 TIMES A DAY FOR 30 DAYS ADMINISTER INTO EACH NOSTRIL Active hydrocortisone (Anusol-HC) 2.5 % rectal cream APPLY RECTALLY 2 TO 4 TIMES A DAY NEEDED FOR HEMORRHOIDS 5 Active losartan (Cozaar) 25 MG tablet Take 1 tablet by mouth Once per day. 5 Active metroNIDAZOLE (Flagyl) 500 MG tablet Take 1 tablet by mouth 2 times daily. 5 Active mirabegron ER (Myrbetriq) 25 MG 24 hr tablet Take 1 tablet by mouth Once per day. Active pantoprazole (ProtoNix) 40 MG EC tablet Take 1 tablet by mouth 2 times daily. Active pioglitazone (Actos) 15 MG tablet Take 1 tablet by mouth Once per day. Active Gemtesa 75 MG tablet Take 1 tablet by mouth Once per day. 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 Chest pain 01/12/2012 Essential hypertension 01/12/2012 Headache 01/12/2012 Pain in joint involving lower leg 01/12/2012 Encounters Date Type Department Care Team Description 10/03/2025 9:45 AM EST Office Visit [facility] MEDICINE [address] [place] [phone] Libra Hyman MD Essential hypertension (Primary Dx); Encounter for immunization 10/03/2025 Orders Only GENERIC EXTERNAL DATA DEPARTMENT Provider, Generic External Data 10/03/2025 Travel 10/02/[address] [address] Libra Hyman MD Chart Prep 09/22/2025 Patient Outreach [address] [address] Libra Hyman MD Pre-visit Planning (SDOH screening negative and tobacco screening negative) 08/14/[address] [address] Mino Collazo MD [facility] - New Patient Assistance from Last 3 Months Immunizations Immunization Administration Dates Next Due Pneumococcal Conjugate PCV 20 10/03/2025 Pneumococcal Polysaccharide PPSV23 09/25/2021 TD (adult), 2 Lf tetanus tox oid, preservative free, adsorbed 11/17/2019 Tdap 08/17/2022,05/05/2013 Social History Tobacco Use Types Packs/Day Years [...] Orientation Straight 08/18/2022 10 :20 AM EDT Last Filed Vital Signs Vital Sign Reading [...] Mass Index 33.63 10/03/2025 9:40 AM EST Plan of Treatment Health Maintenance Due Date Last Done Comments CT Colonography 1953 Colonoscopy 1953 Colorectal Cancer Screening 1953 FIT DNA/Cologuard 1953 FIT 1953 FOBT 1953 Sigmoidoscopy 1953 Alcohol/Substance Use Screening 1965 Tobacco Screening 1965 Hepatitis C Screening 12/22/1971 Mammogram 1993 RSV Patients and Patients Aged 60 years or older (1 - Risk 50-74 years 1-dose series) 12/22/2003 Zoster Vaccines (1 of 2) 12/22/2003 COVID-19 Vaccine (2 - season) 2025 01/26/2021 Influenza Vaccine (#1) 2025 SDOH Screening 09/22/2026 09/22/2025 Depression Screening 10/03/2026 10/03/2025, 10/03/20 25 Lipid Panel 10/03/2030 10/03/2025 DTaP/Tdap/Td Vaccines (4 - Td or Tdap) 08/17/2032 08/17/2022, 11/17/2019, 11/17/2019, Additional history exists Pneumococcal Vaccine: 50+ Years Completed 10/03/2025, 09/25/2021 HIB Vaccines Aged Out No longer eligi [...] patient's age to complete this topic Meningococcal Vaccine Aged Out No uma alba eligible based on patient's age to complete this topic RSV under 20 months Aged Out No longe r eligible based on patient's age to complete this topic Rotavirus Vaccines Aged Out No longer eligible based on patient's age to complete this topic Procedures Procedure Name Priority Date/Time Associated Diagnosis Comments VITAMIN B12/FOLATE, SERUM PANEL Routine 10/03/2025 10:39 AM EST TSH Routine 10/03/2025 10:39 AM EST IRON AND TOTAL IRON BINDING CAPACITY Routine 10/03/2025 10:39 AM EST COMPREHENSIVE METABOLIC PANEL, FASTING Routine 10/03/2025 10:39 AM EST ALBUMIN, RANDOM URINE W/CREATININE Routine 10/03/2025 10:39 AM EST VITAMIN D,25-OH,TOTAL,IA Routine 10/03/2025 10:39 AM EST CBC WITH AUTO DIFFERENTIAL Routine 10/03/2025 10:39 AM EST LIPID PANEL, STANDARD Routine 10/03/2025 10:39 AM EST Essential hypertension COMPREHENSIVE METABOLIC PANEL Routine 10/03/2025 10:39 AM EST Essential hypertension from Last 3 Months Results * (ABNORMAL) Comprehensive Metabolic Panel, Fasting (10/03/2025 10:39 AM EST) Glucose Fasting 148(H) 60 - 99 mg/dL [facility] Comment:A fasting glucose of 126 mg/dl or greater on more than oneoccasion is considered diagnostic of diabetes. 10/03/2025 10:3 9 AM EST 10/03/2025 11:23 AM EST us Generic External Data Provider LAB BLOOD ORDERAB LES Final Result [facility] [address] [place] [phone] * (ABNORMAL) Vitamin D, 25-Hydroxy, Total, Immunoassay (10/03/2025 10:39 AM EST) Vitamin D 25-OH Total 25.7(L) >30 ng/mL [facility] Comment: Health Based Reference Values*< 20 ng/mL [id number] ng/mL Insufficient> 30 ng/mL Sufficient*Ramírez RAY. N Engl J Med. 2007;357:266-280There is no well-established upper level of normal vitamin Dlevels. Some laboratories use 50 ng/mL as an upper limit ofnormal. However, toxicity is patient-dependent and may occurat any level. Careful correlation with the patient'spresentation is necessary and, if there is concern forvitamin D toxicity, treatment should be consideredirrespective of the serum level.Care must be taken in interpreting Vitamin D results fromdifferent laboratories and methodologies. Published datademonstrated that results from patients undergoinghemodialysis may show a negative bias when tested withvarious automated 25-OH vitamin D assays when compared toLC-MS/MS.When testing samples from patients whose predominant form ofVitamin D is Vitamin D2, such as patients receiving VitaminD2 supplementation, results that are subtherapeutic shouldbe confirmed with another method such as LC-MS/MS. 10/03/2025 10:3 9 AM EST 10/03/2025 11:23 AM EST Generic External Data Provider LAB BLOOD ORDERAB LES Final Result [facility] [address] [place] [address] [phone] * Vitamin B12 (Cobalamin) and Folate Panel, Serum (10/03/2025 10:39 AM EST) Vitamin B12 416 200 - 900 pg/mL [facility] Comment:NORMAL 200-900 PG/ML INDETERMINATE 160-199 PG/ML DEFICIENT < 160 PG/ML Folate 9.5 > or = 4.0 ng/mL [facility] Comment:Reference Values:> o r = 4.0 ng/mL< 4.0 ng/mL suggests folate deficiency Methotrexate, aminopterin and folinic acid(leucovorin) are chemotherapeutic agents whose molecularstructures are similar to folate; therefore, the Architectfolate assay cannot be used for patients using these drugs. 10/03/2025 10:3 9 AM EST 10/03/2025 11:23 AM EST us Generic External Data Provider LAB BLOOD ORDERAB LES Final Result Performing Organization Address [facility] Co de Phone Number [facility] [address] [place] [phone] * Albumin, Random Urine W/Creatinine (10/03/2025 10:39 AM EST) Creatinine, Urine 403.36 mg/dL [facility] Microalbumin Urine 42.0 mg/L [facility] Microalbum Creatinine Ratio Ur 10.4 <30 ug/mg cr [facility] Comment:Albumin/Creatinine R atio Reference Ranges: Normal: < 30 ug/mg creatinine Microalbuminuria: 30 - 300 ug/mg creatinineClinical Albuminuria: > 300 ug/mg creatinine 10/03/2025 10:3 9 AM EST 10/03/2025 11:25 AM EST Generic External Data Provider LAB URINE ORDERAB LES Final Result Performing Organization Address [facility] Co de Phone Number [facility] [address] [place] [phone] * (ABNORMAL) CBC auto differential (10/03/2025 10:39 AM EST) Pathologist [facility] White Blood Count 8.5 4.8 - 10.8 X10*3/uL [facility] Red Blood Count 4.17(L) 4.20 - 5.50 X10*6/uL [facility] Hemoglobin 12.0 12.0 - 16.0 g/dl [facility] Hematocrit 38.0 37.0 - 47.0 % [facility] Mean Corpuscular Volume 91.1 80.0 - 98.0 fL [facility] Mean Corpuscular Hemoglobin 28.8 27.0 - 33.0 pg [facility] Mean Corpuscular HGB Conc 31.6 31.0 - 35.0 g/dl [facility] Red Cell Distribution Width 13.5 11.0 - 16.0 % [facility] Platelet Count 290 160 - 400 X10*3/uL [facility] Mean Platelet Volume 11.6 9.4 - 12.3 fL [facility] Neutrophils Percent Auto 71.7 45 - 73 % [facility] Imm Gran Pct Auto 0.2 0.0 - 0.4 % [facility] Lymphocytes Percent Auto 17.3(L) 20 - 40 % [facility] Monocytes Percent Auto 6.6 2 - 11 % [facility] Eosinophils Percent Auto 3.3 0 - 4 % [facility] Basophils Percent Auto 0.9 0 - 2 % [facility] NRBC Pct Auto 0.0 0.0 - 0.2 /100WBC [facility] Neutrophils Absolute Auto 6.1 2.0 - 8.3 x10*3/uL [facility] Imm Gran Abs Auto 0.02 0.00 - 0.03 X10*3/uL [facility] Lymphocytes Absolute Auto 1.5 1.2 - 4.9 X10*3/uL [facility] Monocytes Absolute Auto 0.6 0.1 - 1.2 X10*3/uL [facility] Eosinophils Absolute Auto 0.3 0.0 - 0.4 X10*3/uL [facility] Basophils Absolute Auto 0.1 0.0 - 0.2 X10*3/uL [facility] NRBC Abs Auto 0.000 0.0 - 0.012 X10*3/uL [facility] 10/03/2025 10:3 9 AM EST 10/03/2025 11:23 AM EST us Generic External Data Provider LAB BLOOD ORDERAB LES Final Result [facility] [address] [place], [place] [phone] * Iron And Total Iron Binding Capacity (10/03/2025 10:39 AM EST) Iron 43 30 - 160 mcg/dL [facility] Total Iron Binding Capacity 256 228 - 428 mcg/dL [facility] Percent Iron Saturation 17 15 - 50 % [facility] Unsaturated Iron Binding 213 ug/dL [facility] 10/03/2025 10:3 9 AM EST 10/03/2025 11:23 AM EST us Generic External Data Provider LAB BLOOD ORDERAB LES Final Result Performing Organization Address City/[facility]/ZIP Co de Phone Number [facility] [address] [place] [phone] * TSH (10/03/2025 10:39 AM EST) Thyroid Stimulating Hormone 1.45 0.32 - 4.0 uIU/mL [facility] Comment:TSH 3rd Generation ( [facility]) 10/03/2025 10:3 9 AM EST 10/03/2025 11:23 AM EST us Generic External Data Provider LAB BLOOD ORDERAB LES Final Result Performing Organization Address City/[facility]/ZIP Co de Phone Number [facility] [address] [place] [phone] * (ABNORMAL) Lipid Panel, Standard (10/03/2025 10:39 AM EST) Triglycerides 100 <150 mg/dL [facility] Comment:Desirable Triglyceri de: less than 150 mg/dLBorderline High Triglyceride 150-199 mg/dLHigh Triglyceride: 200-499 mg/dLVery High Triglyceride: greater than or equal to 5OO mg/dL Cholesterol 93 <200 mg/dL [facility] Comment:Desirable Cholestero l: less than 200 mg/dLBorderline High Cholesterol: 200-239 mg/dLHigh Cholesterol: greater than 239 mg/dL LDL Cholesterol Calculated 40 <100 mg/dL [facility] Comment:Desirable LDL: less than 100 mg/dLNear Optimal/Above Optimal LDL: 110- 129 mg/dLBorderline High LDL: 130-159 mg/dLHigh LDL: 160-189 mg/dLVery High LDL: greater than or equal to 190 mg/dL HDL Cholesterol 33(L) >40 mg/dL [facility] Comment:Desirable HDL: great er than 40 mg/dL Note: This HDL assay may give artificially low results in patients with liver disease. Blood Venous blood specimen / Unknown 10/03/2025 10:39 AM EST 10/03/2025 11:23 AM EST us Libra Hyman MD LAB BLOOD ORDERABLES Final Res ult [facility] [address] [place] [phone] * (ABNORMAL) Comprehensive Metabolic Panel (10/03/2025 10:39 AM EST) Sodium 142 135 - 145 mmol/L [facility] Potassium 4.3 3.3 - 5.1 mmol/L [facility] Chloride 106 96 - 108 mmol/L [facility] Carbon Dioxide 28 22 - 29 mmol/L [facility] Anion Gap 12 12 - 20 [facility] Urea Nitrogen (BUN) 10 9 - 16 mg/dL [facility] Creatinine, Serum 0.92 0.5 - 1.4 mg/dL [facility] Estimated Glomerular Filt Rate >60 [facility] Comment:Chronic Kidney Disea se: Estimated GFR < 60 mL/min/[id number] Kidney Disease: Estimated GFR < 15 mL/min/1.73m2 Glucose 147(H) 60 - 115 mg/dL [facility] Calcium 9.1 8.4 - 10.2 mg/dL [facility] Bilirubin, Total 0.4 0.0 - 1.0 mg/dL [facility] Aspartate Amino Transferase 35(H) 5 - 31 U/L [facility] Alanine Aminotransferase 22 0 - 31 U/L [facility] Total Protein 7.3 6.5 - 8.0 g/dL [facility] Albumin Level 4.2 3.5 - 5.0 g/dL [facility] Alkaline Phosphatase 166(H) 39 - 117 U/L [facility] Blood Venous blood specimen / Unknown 10/03/2025 10:39 AM EST 10/03/2025 11:23 AM EST us Libra Hyman MD LAB BLOOD ORDERABLES Final Res ult [facility] [address] [place] [phone] from Last 3 Months Insurance [facility] STANDARD [facility] [employer] (HMO D-SNP) Care Teams Quality Assurance Group Leader Relationship Specialty Start Date End Date Libra Hyman MD [address] [place] [address] PCP - General Family Medicine 10/03/25
--- OUTSIDE RECORDS SUMMARY | 2025-10-03 13:21 | XMS_ITS | Encounter Summary ---
Author Organization [employer] Address [address] [facility] [address] [place] [address] Care Team Providers Care Rn Transition Name Role Phone Unavailable Primary Care Provider Unavailabl e Reason for Visit * Reason Onset Date Comments Chart Prep 10/02/2025 Encounter Details Date Type Department Care Team ([facility] st Contact Info) Description 10/02/[address] [facility] MEDICINE [address] [place] [address] Libra Hyman MD [address] [place] [phone] Chart Prep Social History Tobacco Use Types Packs/Day Years [...] AM EDT documented as of this encounter Miscellaneous Notes * Telephone Encounter - Brianna Moreno [place] - 10/02/2025 9:37 AM EST Chart Prep Labs: not applicable Images: not applicable Referrals: not applicable Vaccines due: Covid, Flu, PCV20, and Zoster Screenings: colonoscopy, mammogram, and Hep C Screening Overdue care gaps: SBIRT, PHQ-9, and JESSICA-7 documented in this encounter Plan of Treatment Not on file documented as of this encounter Visit Diagnoses Not on filedocumented in this encounter
--- OUTSIDE RECORDS SUMMARY | 2025-10-03 13:21 | XMS_ITS | Encounter Summary ---
Author Organization [facility] Address [address] [facility] [address] [place] [address] Care Team Providers Care Edge Bander Operator Name Role Phone Libra Hyman MD Primary Care Provider [phone] Encounter Details Date Type Department Care Team (Late st Contact Info) Description 10/03/2025 Orders Only GENERIC EXTERNAL DATA DEPARTMENT Provider, Generic External Data Social History Tobacco Use Types Packs/Day Years [...] AM EDT documented as of this encounter Functional Status * Over the past 2 weeks, how often have you been bothered by any of the following problems? Question Answer Date of Assessment Author Patient Health Questionnaire-2 Score 2 10/03/2025 9:48 AM Johanna Vora MA * Little interest or pleasure in doing things Answer Date of Assessment Author Several days 10/03/2025 9:48 AM Johanna Garcia MA * Feeling down, depressed, or hopeless Answer Date of Assessment Author Several days 10/03/2025 9:48 AM Johanna Garcia MA * Trouble falling or staying asleep, or sleeping too much Answer Date of Assessment Author Several days 10/03/2025 9:48 AM Johanna Garcia MA * Feeling tired or having little energy Answer Date of Assessment Author Several days 10/03/2025 9:48 AM Johanna Garcia MA * Poor appetite or overeating Answer [...] awful might happen 1 10/03/2025 9:48 AM Johanna Bettencourt MA JESSICA-7 Total Score 7 10/03/2025 9:48 AM Johanna Vora MA * How difficult have these problems made it for you to do your work, take care of things at home, or get along with other people? Answer Date of Assessment Author Somewhat difficult 10/03/2025 9:48 AM Johanna Hussein MA documented as of this encounter Plan of Treatment Not on file documented as of this encounter Procedures Procedure Name Priority Date/Time Associated Diagnosis Comments COMPREHENSIVE METABOLIC PANEL, FASTING Routine 10/03/2025 10:39 AM EST VITAMIN D,25-OH,TOTAL,IA Routine 10/03/2025 10:39 AM EST VITAMIN B12/FOLATE, SERUM PANEL Routine 10/03/2025 10:39 AM EST ALBUMIN, RANDOM URINE W/CREATININE Routine 10/03/2025 10:39 AM EST CBC WITH AUTO DIFFERENTIAL Routine 10/03/2025 10:39 AM EST IRON AND TOTAL IRON BINDING CAPACITY Routine 10/03/2025 10:39 AM EST TSH Routine 10/03/2025 10:39 AM EST documented in this encounter Results * Vitamin B12 (Cobalamin) and Folate Panel, Serum (10/03/2025 10:39 AM EST) Vitamin B12 416 200 - 900 pg/mL [facility] Comment:NORMAL 200-900 PG/ML INDETERMINATE 160-199 PG/ML DEFICIENT < 160 PG/ML Folate 9.5 > or = 4.0 ng/mL [facility] Comment:Reference Values:> o r = 4.0 ng/mL< 4.0 ng/mL suggests folate deficiency Methotrexate, aminopterin and folinic acid(leucovorin) are chemotherapeutic agents whose molecularstructures are similar to folate; therefore, the Architectfolate assay cannot be used for patients using these drugs. 10/03/2025 10:3 9 AM EST 10/03/2025 11:23 AM EST us Generic External Data Provider LAB BLOOD ORDERAB LES Final Result [facility] [address] [place] [phone] * TSH (10/03/2025 10:39 AM EST) Thyroid Stimulating Hormone 1.45 0.32 - 4.0 uIU/mL [facility] Comment:TSH 3rd Generation ( [facility]) 10/03/2025 10:3 9 AM EST 10/03/2025 11:23 AM EST Generic External Data Provider LAB BLOOD ORDERAB LES Final Result Performing Organization Address City/[facility] Co de Phone Number [facility] [address] [place] [address] [phone] * Iron And Total Iron Binding Capacity (10/03/2025 10:39 AM EST) Iron 43 30 - 160 mcg/dL [facility] Total Iron Binding Capacity 256 228 - 428 mcg/dL [facility] Percent Iron Saturation 17 15 - 50 % [facility] Unsaturated Iron Binding 213 ug/dL [facility] 10/03/2025 10:3 9 AM EST 10/03/2025 11:23 AM EST Generic External Data Provider LAB BLOOD ORDERAB LES Final Result Performing Organization Address [facility] Co de Phone Number [facility] [address] [place] [phone] * (ABNORMAL) Comprehensive Metabolic Panel, Fasting (10/03/2025 10:39 AM EST) Pathologist [facility] Glucose Fasting 148(H) 60 - 99 mg/dL [facility] Comment:A fasting glucose of 126 mg/dl or greater on more than oneoccasion is considered diagnostic of diabetes. 10/03/2025 10:3 9 AM EST 10/03/2025 11:23 AM EST us Generic External Data Provider LAB BLOOD ORDERAB LES Final Result Performing Organization Address [facility] Co de Phone Number [facility] [address] [place] [phone] * Albumin, Random Urine W/Creatinine (10/03/2025 10:39 AM EST) Creatinine, Urine 403.36 mg/dL [facility] Microalbumin Urine 42.0 mg/L [facility] Microalbum Creatinine Ratio Ur 10.4 <30 ug/mg cr [facility] Comment:Albumin/Creatinine R atio Reference Ranges: Normal: < 30 ug/mg creatinine Microalbuminuria: 30 - 300 ug/mg creatinineClinical Albuminuria: > 300 ug/mg creatinine 10/03/2025 10:3 9 AM EST 10/03/2025 11:25 AM EST us Generic External Data Provider LAB URINE ORDERAB LES Final Result Performing Organization Address [facility]/ZIP Co de Phone Number [facility] [address] [place] [phone] * (ABNORMAL) Vitamin D, 25-Hydroxy, Total, Immunoassay (10/03/2025 10:39 AM EST) Vitamin D 25-OH Total 25.7(L) >30 ng/mL [facility] Comment: Health Based Reference Values*< 20 ng/mL [id number] ng/mL Insufficient> 30 ng/mL Sufficient*Ramírez RAY. N [...] ORDERAB LES Final Result Performing Organization Address [facility]/ZIP Co de Phone Number [facility] [address] [place] [phone] * (ABNORMAL) CBC auto differential (10/03/2025 10:39 AM EST) White Blood Count 8.5 4.8 - 10.8 X10*3/uL [facility] Red Blood Count 4.17(L) 4.20 - 5.50 X10*6/uL [facility] Hemoglobin 12.0 12.0 - 16.0 g/dl [facility] Hematocrit 38.0 37.0 - 47.0 % [facility] Mean Corpuscular Volume 91.1 80.0 - 98.0 fL [facility] Mean Corpuscular Hemoglobin 28.8 27.0 - 33.0 pg [facility] Mean Corpuscular HGB Conc 31.6 31.0 - 35.0 g/dl [facility] Red Cell Distribution Width 13.5 11.0 - 16.0 % [facility] Platelet Count 290 160 - 400 X10*3/uL [facility] Mean Platelet Volume 11.6 9.4 - 12.3 fL [facility] Neutrophils Percent Auto 71.7 45 - 73 % [facility] Imm Gran Pct Auto 0.2 0.0 - 0.4 % [facility] Lymphocytes Percent Auto 17.3(L) 20 - 40 % [facility] Monocytes Percent Auto 6.6 2 - 11 % [facility] Eosinophils Percent Auto 3.3 0 - 4 % [facility] Basophils Percent Auto 0.9 0 - 2 % [facility] NRBC Pct Auto 0.0 0.0 - 0.2 /100WBC [facility] Neutrophils Absolute Auto 6.1 2.0 - 8.3 x10*3/uL [facility] Imm Gran Abs Auto 0.02 0.00 - 0.03 X10*3/uL [facility] Lymphocytes Absolute Auto 1.5 1.2 - 4.9 X10*3/uL [facility] Monocytes Absolute Auto 0.6 0.1 - 1.2 X10*3/uL [facility] Eosinophils Absolute Auto 0.3 0.0 - 0.4 X10*3/uL [facility] Basophils Absolute Auto 0.1 0.0 - 0.2 X10*3/uL [facility] NRBC Abs Auto 0.000 0.0 - 0.012 X10*3/uL [facility] 10/03/2025 10:3 9 AM EST 10/03/2025 11:23 AM EST us Generic External Data Provider LAB BLOOD ORDERAB LES Final Result [facility] [address] [place] [phone] documented in this encounter Visit Diagnoses Not on filedocumented in this encounter Additional Health Concerns Assessment Noted Time PHQ-9 Depression Total Score: 6 10/03/20 25 9:48 AM EST documented as of this encounter Care Teams Edge Bander Operator Relationship Specialty Start Date End Date Libra Hyman MD [address] [place] [phone] PCP - General Family Medicine 10/03/25 documented as of this encounter
--- OUTSIDE RECORDS SUMMARY | 2025-10-03 13:21 | XMS_ITS | Encounter Summary ---
Author Organization [facility] Address [address] [facility] [address] [place] [address] Care Team Providers Care Recreational Facilities Motel Manager Name Role Phone Libra Hyman MD Primary Care Provider [phone] Encounter Details Date Type Department Care Team (Latest Contact Info) Description 10/03/2025 Travel Social History Tobacco Use Types Packs/Day Years [...] Questionnaire-2 Score 2 10/03/2025 9:48 AM Johanna Voar MA * Little interest or pleasure in [...] MA Trouble relaxing 1 10/03/2025 9:48 AM EST Johanna Martinez MA Being so restless that it is [...] documented as of this encounter Care Teams Recreational Facilities Motel Manager Relationship Specialty Start Date End Date Libra Hyman MD [address] [place] [address] PCP - General Family Medicine 10/03/25 documented as of this encounter
== END 2025-10-03 10:34 | disposition home or self-care (01) ==
LOC: HO.HHCL 10:33
PROVIDERS: Internal Medicine; PCP General Practice; Visit Provider General Practice
DX: I10 Essential (primary) hypertension (principal); E53.8 Deficiency of other specified B group vitamins; E55.9 Vitamin D deficiency, unspecified; R80.9 Proteinuria, unspecified; D64.9 Anemia, unspecified; L65.9 Nonscarring hair loss, unspecified
CPT/HCPCS: 36415; 80053; 80061; 82043; 82306; 82570; 82607; 82746; 83540; 84443; 85025

== ENCOUNTER 2025-10-10 11:27 | Emergency (ER) | payer OTHER, SELFPAY ==
--- NOTE | ~2025-10-10 | XR_ITS ---
EXAMINATION: XR CHEST 2 VIEWS HISTORY: URI symptoms COMPARISON: Comparison is made with the prior examination dated 06/28/2024. FINDINGS: PA and lateral views of the chest are submitted. The lungs are expanded and clear. There is no pleural effusion, pneumothorax, or pulmonary vascular congestion. The heart is normal in size. The bones are intact. XR/XR chest 2V IMPRESSION: No acute cardiopulmonary abnormality. Electronically signed by: Dagoberto Carmona MD 10/10/2025 12:40 PM [facility]
[2025-10-10 11:41] VITALS: BP 135/66; PULSE 72; RESP 20; TEMP 36.6; O2SAT 99; BMI 32.9
--- NOTE | 2025-10-10 11:47 | ED_ITS ---
HPI - General Adult General Chief complaint: General Medical Stated complaint: Shortness of Breath, Lung Pain Time Seen by Provider: 10/10/25 13:17 History of Present Illness ED Provider: Anni Ramos NP HPI narrative: 69-year-old female medical history significant for GERD, hypertension, hyperlipidemia, depression and anxiety, osteoarthritis, uterine fibroids, osteopenia, diabetes mellitus, postmenopausal bleeding, sacroiliac joint dysfunction, hemorrhoids, asthma presents to the ED with chief complaint of cough creating bilateral upper back pain, as well as myalgias. She is concerned that she has the flu, as her family members have the flu. Denies chest pain or pressure. No shortness of breath. Occasionally coughing yellow sputum. Some nasal congestion. Sore throat, but no painful swallow. No fever, chills. Endorsing generalized body aches. Has not taken anything [id number]. Related Data Home Medications ?Medication ?Instructions ?Recorded ?Confirmed acetaminophen 500 mg tablet 500 mg PO Q6H PRN Fever Or Pain 12/22/24 07/10/25 atenolol 50 mg tablet 50 mg PO DAILY 12/22/2406/20 pioglitazone 15 mg tablet 15 mg PO DAILY 12/22/2406/20 simethicone 125 mg chewable tablet 125 mg PO TID PRN a bdominal 12/22/24 07/10/25 (Gas Relief (simethicone)) distention Previous Rx's ?Medication ?Instructions ?Recorded walker #1 ea 11/08/21 methylcellulose (laxative) 500 mg 500 mg PO DAILY #90 tabs 11/09/23 tablet (Citrucel) lidocaine 5 % topical patch 1 patch topical DAILY PRN pain #30 09/06/24 (Lidoderm) ea blood pressure test kit-large #1 ea 09/07/24 (Advocate Blood Pressure Monitor kit) gabapentin 100 mg capsule 100 mg PO BEDTIME 30 days #3 0 caps 11/09/24 aspirin 81 mg tablet,delayed 81 mg PO DAILY 90 days #9 0 tabs 12/08/24 release Held on 12/23/24. Instructions: Resume on 12/28/24. bisacodyl 5 mg tablet,delayed 10 mg (2 x 5 mg) PO BEDT CLAUDIO #180 12/14/24 release (Dulcolax (bisacodyl)) tabs hydrocortisone 2.5 % topical cream 1 appl OH BID-QID P RN hemorrhoids 12/29/24 with perineal applicator #30 grams (Anusol-HC) losartan 25 mg tablet 25 mg PO DAILY 90 days #90 t abs 03/16/25 buspirone 10 mg tablet 10 mg PO BID 90 days #180 ta bs 04/04/25 calcium 500 mg (as 1 tab PO DAILY 90 days #90 t abs 04/04/25 carbonate)-vitamin D3 10 mcg (400 unit) tablet (Oyster Shell Calcium-Vitamin D3) docusate sodium 100 mg capsule 100 mg PO BEDTIME #90 c aps 04/06/25 sennosides 8.6 mg tablet (senna) 17.2 mg (2 x 8.6 mg) PO BEDTIME 05/02/25 for constipation #90 tabs fluticasone propionate 50 1 spray intranasal BID 30 da ys #16 05/10/25 mcg/actuation nasal grams spray,suspension (Flonase Allergy Relief) pantoprazole 40 mg tablet,delayed 40 mg PO BID #180 ta bs 05/31/25 release amlodipine 5 mg tablet 5 mg PO DAILY #90 tabs 07/02 vibegron 75 mg tablet (Gemtesa) 75 mg PO DAILY 90 days #90 tabs 07/06/25 atorvastatin 20 mg tablet 20 mg PO BEDTIME 90 days #90 tabs 07/27/25 cetirizine 10 mg tablet (All Day 10 mg PO DAILY PRN al lergy 09/17/25 Allergy (cetirizine)) symptoms 90 days #90 tabs prednisone 20 mg tablet 40 mg (2 x 20 mg) PO DAILY 4 days 10/10/25 #8 tabs Allergies Allergy/AdvReac Type Severity Reaction Status Date / Time Penicillins Allergy Intermediate DIZZINESS, Verified 10/10/25 11:44 RASH tramadol (TRAMADOL) Allergy Intermediate NAUSEA & Verified 10/10/25 11:44 VOMITING egg (Egg) AdvReac Intermediate NAUSEA & Verified 10/10/25 11:44 VOMITING morphine AdvReac Intermediate Chest Pain Verified 10/10/25 11:44 oxycodone AdvReac Dizziness Verified 10/10/25 11:44 FANY DRINK Allergy Intermediate NAUSEA & Uncoded 07/10/25 17:41 VOMITING Review of Systems Review of Systems: ROS is otherwise negative unless mentioned in HPI. PMFSH Past Medical History Medical History Hemorrhoid Hospital discharge follow-up History of mammogram (~06/2024) PMB (postmenopausal bleeding) COVID-19 Impaired glucose regulation Dysuria Pelvic pain Burning with urination Fibroids Hiatal hernia Right shoulder pain Exposure to COVID-19 virus Mild depression TIA (transient ischemic attack) Asthma Back pain Abdominal pain Vaginal pruritus Vitamin D deficiency Left knee pain Left ankle pain Depression with anxiety Polyarthralgia Pure hypercholesterolemia Essential hypertension Surgical History History of tooth extraction History of colonoscopy History of cyst of breast History of hemicolectomy History of cholecystectomy History of appendectomy History of exploratory laparotomy Family History Family History Father No problems noted. Mother Hypertension Stroke Diabetes Brother Leptospirosis Brother No problems noted. Family/Other FH: mental illness Son Hypertension Social History Social History Household Members: Spouse Housing: Apartment Are you a primary healthcare interpreter to a significant other at home: No Do you presently have visiting nurse or other home services: No Alcohol intake: never Patient Tobacco Use Status: Never used Tobacco e-Cigarette/Vaping Use: Never Used Second Hand Smoke Exposure: No Advance Directives: No Advance Directives Information Provided: Yes service: No Current occupational status: disabled Sexual orientation: Straight/Heterosexual Gender identity: Female Cognitive needs: Yes Hearing needs: No Vision needs: Yes Physical Exam ED Exam Exam: Nursing notes and vital signs reviewed. Constitutional: Well-appearing, NAD. Alert. Oriented X3. Eyes: EOMI. ENT: Pharynx normal. Neck: Normal inspection. Neck supple. CVS: Normal heart rate and rhythm. Pulses normal. Respiratory: No respiratory distress. Breath sounds normal. Scattered wheeze. Abdomen: Soft, nontender, nondistended. Skin: Skin warm and dry. Normal skin color. Extremities: No lower extremity edema. Neuro: Oriented X 3. No motor deficit. Vital Signs: Vital Signs - 24 hr 10/10/25 14:48 10/10/25 14:54 10/10/25 14:58 Temperature 96.7 F L 96.7 F L Pulse Rate 71 62 62 Respiratory Rate 16 18 18 Blood Pressure 140/59 H 140/59 H Pulse Oximetry 100 100 Oxygen Delivery Method Room Air Room Air BMI result Body Mass Index 32.9 Course Course Course Narrative: RME: 69-year-old female presents to ED for URI symptoms. Patient's partner grandson's positive for flu. Labs x-ray or Medications Administered Discontinued Medications Generic Name Dose Route Start Last Admin Trade Name Negrito PRN Reason Stop Dose Admin Albuterol/Ipratropium 3 ml 10/10/25 14:15 10/10/25 14:45 Albuterol/Iprat 2.5/0.5mg 3 Ml Ampul.Neb INHALE 10/10/25 14:16 3 ml ONCE ONE Administration Prednisone 60 mg 10/10/25 14:15 10/10/25 14:22 Prednisone 20 Mg Tablet PO 10/10/25 14:16 60 mg ONCE ONE Administration Medical Decision Making Medical Decision Making [facility] Narrative: interpreter and translator services utilized during the visit. On exam she is overall well-appearing. Lungs with scattered wheeze throughout. Productive cough with occasional yellow sputum. She had a x-ray ordered by the triage provider which reveals no acute pneumonia. She also had a viral panel obtained which is negative for COVID, flu and RSV, and rapid strep is also negative. Likely a common cold or upper respiratory illness that is creating some asthma exacerbation. Her family does have the flu, it is possible she will test flu positive in the next several days. However, given the active asthma exacerbation with a little bit of wheezing, plan to administer a dose of steroids as well as a DuoNeb. We will discharge home with outpatient follow up with primary care, as well as with 4 days of steroids. The patient's steamer tender is at bedside, and agreeable to plan of care. The patient is not hypoxic, 99% on room air, afebrile. No indication for admission, nor for additional workup. Differential Diagnosis Differential Diagnoses: The differential diagnosis associated with the presentation includes Viral illness, asthma exacerbation, pneumonia Admission/Observation Consideration of admission/observation: Escalation of care including admission/observation considered Not indicated Lab Data [facility] Lab Attestation statement: I reviewed the patient's lab results. (Negative viral panel, negative strep) Labs: Lab Results 10/10/25 Range/Units 12:40 Influenza Type A (PCR) NEGATIVE (Negative) Influenza Type B (PCR) NEGATIVE (Negative) RSV RNA Qual (PCR) NEGATIVE (Negative) SARS-CoV-2 RNA (RT-PCR) NEGATIVE (Negative) S. pyogenes GrpA KELLI Negative (Negative) Independent Interpretation I performed an independent interpretation of an: Plain X-Ray Interpretation: I have reviewed the patient's imaging and agree with the radiologist's findings. Radiology Impression Discussion of test interpretation with radiology: I have reviewed the radiologist's reading. Radiologist Impression: XR/XR chest 2V IMPRESSION: No acute cardiopulmonary abnormality. Independent Historian Clinical information obtained from an independent historian. History obtained from or confirmed by: Friend External Record Review External record reviewed: Office record, Primary care record and Outside ED record Prescription Management I considered prescription management with: Antiviral and Antibiotic Not indicated Chronic Conditions Patient?s care impacted by: Hypertension and Other (Asthma) Social Determinants Patient?s care significantly limited by Social Determinants of Health including: Problems related to primary support group Discharge Plan Discharge Clinical Impression: Asthma exacerbation, Viral illness Patient Disposition: Home, Self-Care Instructions: Asthma (DC) Additional Instructions: As we discussed, you were seen in the ER today for evaluation of coughing, and generalized body aches. The x-ray of the chest does not show pneumonia. Your viral panel is negative at this time for COVID, flu, and RSV. Your rapid strep test was also negative. You do have mild wheezing on exam, therefore we gave you 1 DuoNeb in the ER. We also gave you a dose of steroids. We are sending you home with steroids for the next several days. Please take these medications as prescribed. With any new, worsening complaints at any time, return back to the ED for additional assessment. Alona comentamos, hoy acudi? a la adán de emergencias para whitley evaluaci?n por tos y laquita corporales generalizados. La radiograf?a de t?rax no muestra neumon?a. Las pruebas virales para COVID, gripe y virus respiratorio sincitial (VRS) dieron negativo. La prueba r?pida de estreptococos tambi?n fue negativa. Presenta sibilancias leves vinicio el examen, por lo que le administramos whitley dosis de DuoNeb en la adán de emergencias. Tambi?n le administramos whitley dosis de esteroides. Le damos de tariq con esteroides para los pr?ximos d?as. Por favor, tome estos medicamentos seg?n lo indicado. Si presenta s?ntomas nuevos o un empeoramiento de los s?ntomas en cualquier momento, regrese a la adán de emergencias para whitley evaluaci?n adicional. Prescriptions: New prednisone 20 mg tablet 40 mg PO DAILY 4 Days Qty: 8 0RF No Action (DME) walker Misc See Rx Instructions .ROUTE .MEDSUPPLY Qty: 1 0RF Rx Instructions: As Directed (DME) blood pressure test kit-large [Advocate Blood Pressure Monitr] Kit See Rx Instructions .Route Qty: 1 0RF Rx Instructions: As directed aspirin 81 mg tablet,delayed release (DR/EC) 81 mg PO DAILY 90 Days Qty: 90 3RF losartan 25 mg tablet 25 mg PO DAILY 90 Days Qty: 90 1RF calcium carbonate-vitamin D3 [Oyster Shell Calcium-Vit D3] 500 mg-10 mcg (400 unit) tablet 1 tab PO DAILY 90 Days Qty: 90 2RF buspirone 10 mg tablet 10 mg PO BID 90 Days Qty: 180 1RF docusate sodium 100 mg capsule 100 mg PO BEDTIME Qty: 90 3RF sennosides [senna] 8.6 mg tablet 17.2 mg PO BEDTIME Qty: 90 3RF fluticasone propionate [Flonase Allergy Relief] 50 mcg/actuation spray,suspension 1 spray intranasal BID 30 Days Qty: 16 1RF Rx Instructions: administer into each nostril pantoprazole 40 mg tablet,delayed release (DR/EC) 40 mg PO BID Qty: 180 1RF amlodipine 5 mg tablet 5 mg PO DAILY Qty: 90 0RF atorvastatin 20 mg tablet 20 mg PO BEDTIME 90 Days Qty: 90 1RF cetirizine [All Day Allergy (cetirizine)] 10 mg tablet 10 mg PO DAILY PRN (Reason: allergy symptoms) 90 Days Qty: 90 1RF lidocaine [Lidoderm] 5 % adhesive patch,medicated 1 patch topical DAILY MDD remove after 12 hours PRN (Reason: pain) Qty: 30 0RF Rx Instructions: leave on most painful area for up to 12 hrs pioglitazone 15 mg tablet 15 mg PO DAILY acetaminophen 500 mg Tablet 500 mg PO Q6H PRN (Reason: Fever Or Pain) atenolol 50 mg Tablet 50 mg PO DAILY simethicone [Gas Relief (simethicone)] 125 mg tablet,chewable 125 mg PO TID PRN (Reason: abdominal distention) Citrucel 500 mg tablet 500 mg PO DAILY Qty: 90 2RF Rx Instructions: take it with full glass of water gabapentin 100 mg capsule 100 mg PO BEDTIME 30 Days Qty: 30 6RF bisacodyl [Dulcolax (bisacodyl)] 5 mg tablet,delayed release (DR/EC) 10 mg PO BEDTIME Qty: 180 4RF Gemtesa 75 mg tablet 75 mg PO DAILY 90 Days Qty: 90 3RF hydrocortisone [Anusol-HC] 2.5 % cream with perineal applicator 1 appl OH BID-QID PRN (Reason: hemorrhoids) Qty: 30 6RF Referrals: Libra Hyman MD [Primary Care Provider, Internal Medicine] Interventions: ED Discharge Assessment Last Done: 10/10/25 14:58 Discharge Date/Time: 10/10/25 14:59 Print Language: Greek
[2025-10-10 12:53] LABS: IDNOW Serial# 58CA691E; Strep A Nucleic Acid Negative (Negative)
[2025-10-10 13:22] LABS: Resp Syncy Virus RNA Qual PCR NEGATIVE (Negative); SARS COV2 PCR INHOUSE NEGATIVE (Negative)
--- OUTSIDE RECORDS SUMMARY | 2025-10-10 13:52 | XMS_ITS | Clinical Summary ---
Author Organization [employer] Address [address] [facility] [address] [place] [address] Care Team Providers Care Ultrasound Technol Name Role Phone Libra Hyman MD Primary Care Provider [phone] Allergies Active Allergy Reactions Criticality Noted Date Comments Egg Protein (Egg White) Other 06/28/2013 Morphine Chest Pain High 12/22/2024 Oxycodone Dizziness 12/22/2024 Penicillin V Unknown 11/05/2010 Tramadol High 12/22/2024 Other Reaction(s): NAUSEA & VOMITING Medications albuterol 108 (90 Base) MCG/ACT inhaler INHALE 2 PUFFS 4 TIMES A DAY FOR SHORTNESS OF BREATH OR WHEEZING FOR 7 DAYS 025 Active fluticasone (Flonase) 50 MCG/ACT nasal spray SPRAY 1 SPRAY INTRANASALLY 2 TIMES A DAY FOR 30 DAYS ADMINISTER INTO EACH NOSTRIL 025 Active pantoprazole (ProtoNix) 40 MG EC tabletIndicatio ns:Gastroesopha geal reflux disease, unspecified whether esophagitis present Take 1 tablet (40 mg) by mouth 2 times daily. 90 tablet 3 025 Active Oyster Shell Calcium/D3 500-10 MG-MCG tabletIndicatio ns:Vitamin D deficiency Take 1 tablet by mouth Once per day. 90 tablet 3 025 Active losartan (Cozaar) 25 MG tabletIndicatio ns:Essential hypertension Take 1 tablet (25 mg) by mouth Once per day. 90 tablet 3 025 Active Gemtesa 75 MG tabletIndicatio ns:Mixed stress and urge urinary incontinence Take 1 tablet (75 mg) by mouth Once per day. 90 tablet 3 025 Active docusate sodium (Colace) 100 MG capsuleIndicati ons:Slow transit constipation Take 1 capsule (100 mg) by mouth Once per day. 90 capsule 3 Active cetirizine (ZyrTEC) 10 MG tablet Take 1 tablet (10 mg) by mouth Once per day. 90 tablet 3 Active busPIRone (Buspar) 10 MG tabletIndicatio ns:Anxiety Take 1 tablet (10 mg) by mouth 2 times daily. 90 tablet 3 025 2025 Active atorvastatin (Lipitor) 20 MG tabletIndicatio ns:Essential hypertension,Ty pe 2 diabetes mellitus without complication, without long-term current use of insulin (HCC) Take 1 tablet (20 mg) by mouth Once per day. 90 tablet 3 025 2025 Active senna-docusate sodium (Senokot-S) 8.6-50 MG tabletIndicatio ns:Slow transit constipation Take 1 tablet by mouth Once per day. 90 tablet 3 025 2025 Active aspirin 81 MG EC tabletIndicatio ns:Essential hypertension,Ty pe 2 diabetes mellitus without complication, without long-term current use of insulin (HCC) Take 1 tablet (81 mg) by mouth Once per day. 90 tablet 3 2025 Active azithromycin (Zithromax) 250 MG tablet TAKE 2 TABLETS BY MOUTH TODAY, THEN TAKE 1 TABLET DAILY FOR 4 DAYS DIRECTED 2024 Discontinued(T herapy completed) Oyster Shell Calcium/D3 500-10 MG-MCG tablet Take 1 tablet by mouth Once per day. 2024 Discontinued(R eorder (will not trigger notification to Pharmacy)) cetirizine (ZyrTEC) 10 MG tablet TAKE 1 TABLET (10 MG) BY MOUTH DAILY NEEDED FOR ALLERGY SYMPTOMS FOR 90 DAYS 2024 Discontinued(R eorder (will not trigger notification to Pharmacy)) docusate sodium (Colace) 100 MG capsule Take 100 mg by mouth. 2024 Discontinued(R eorder (will not trigger notification to Pharmacy)) doxycycline (Vibra-Tabs) 100 MG tablet Take 1 tablet by mouth 2 times daily. 2024 Discontinued(T herapy completed) hydrocortisone (Anusol-HC) 2.5 % rectal cream APPLY RECTALLY 2 TO 4 TIMES A DAY NEEDED FOR HEMORRHOIDS 2024 Discontinued(T herapy completed) losartan (Cozaar) 25 MG tablet Take 1 tablet by mouth Once per day. 2024 Discontinued(R eorder (will not trigger notification to Pharmacy)) metroNIDAZOLE (Flagyl) 500 MG tablet Take 1 tablet by mouth 2 times daily. 2024 Discontinued(T herapy completed) mirabegron ER (Myrbetriq) 25 MG 24 hr tablet Take 1 tablet by mouth Once per day. 2024 Discontinued(T herapy completed) pantoprazole (ProtoNix) 40 MG EC tablet Take 1 tablet by mouth 2 times daily. 2024 Discontinued(R eorder (will not trigger notification to Pharmacy)) pioglitazone (Actos) 15 MG tablet Take 1 tablet by mouth Once per day. 2024 Discontinued(T herapy completed) Gemtesa 75 MG tablet Take 1 tablet by mouth Once per day. 2024 Discontinued(R eorder (will not trigger notification to Pharmacy)) Active Problems Problem Noted Date Diagnosed Date Type 2 diabetes mellitus wit hout complication, without long-term current use of insulin 10/03/2025 Asthma 10/03/2025 Bilateral carotid artery stenosis 10/03/2025 Chronic pain of both shoulders 10/03/2025 Chronic pain syndrome 10/03/2025 Uterine leiomyoma 10/03/2025 Overview (10/03/2025): Growing in size Fibromuscular dysplasia 10/03/2025 Left knee pain 10/03/2025 Mixed stress and urge urinary incontinence 10/03 Osteoarthritis of left knee 10/03/2025 Osteopenia 10/03/2025 PMB (postmenopausal bleeding) 10/03/2025 Overview (10/03/2025): Endometrial fluid on US and then endometrial polyp on EMB pathology Post-menopausal 10/03/2025 Pure hypercholesterolemia 10/03/2025 Right sciatic nerve pain 10/03/2025 Right shoulder pain 10/03/2025 Sacroiliac joint dysfunction of right side 10/03 Sacroiliitis 10/03/2025 Polyarthralgia 10/03/2025 Vitamin D deficiency 10/03/2025 Joint pain 01/16/2017 Arthritis of knee 11/18/2016 Gastroesophageal reflux disease 11/18/2016 Anxiety 02/10/2013 Depressive disorder 02/10/2013 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 Chest pain 01/12/2012 Essential hypertension 01/12/2012 Headache 01/12/2012 Pain in joint involving lower leg 01/12/2012 Encounters Date Type Department Care Team Description 10/03/2025 9:45 AM EST Office Visit [address] [address] Libra Hyman MD Essential hypertension (Primary Dx); Encounter for immunization; Type 2 diabetes mellitus without complication, without long-term current use of insulin (HCC); Dietary counseling; Exercise counseling; Class 1 obesity with serious comorbidity and body mass index (BMI) of 33.0 to 33.9 in adult, unspecified obesity type; Gastroesophageal reflux disease, unspecified whether esophagitis present; Polyarthralgia; Vitamin D deficiency; Mixed stress and urge urinary incontinence; Anxiety; Slow transit constipation; Pure hypercholesterolemia 10/03/2025 Orders Only GENERIC EXTERNAL DATA DEPARTMENT Provider, Generic External Data 10/03/2025 Travel 10/02/[address] [address] Libra Hyman MD Chart Prep 09/22/2025 Patient Outreach [address] [address] Libra Hyman MD Pre-visit Planning (SDOH screening negative and tobacco screening negative) 08/14/[address] [address] Mino Collazo MD [facility] - New Patient Assistance from Last 3 Months Immunizations Immunization Administration Dates Next Due Pneumococcal Conjugate PCV 20 10/03/2025 Pneumococcal Polysaccharide PPSV23 09/25/2021 TD (adult), 2 Lf tetanus tox oid, preservative free, adsorbed 11/17/2019 Tdap 08/17/2022,05/05/2013 Social History Tobacco Use Types Packs/Day Years Used Date Smoking Tobacco: Never Smokeless Tobacco: Never Tobacco Cessation:Counseling Given: Not Answered Alcohol Answer Date Recorded How often do you have a drink containing alcohol ? 1 10/03/2025 Average Number of Drinks Not on file 025 Frequency of Binge Drinking Not on file 09/18 Depression Answer Date Recorded Patient Health Questionnaire-9 [...] Access Q2 Not on file 09/22/2025 Comments No Sex and Gender Information Value Date Recorded [...] 1955 Colonoscopy 1955 Colorectal Cancer Screening 1955 Diabetes: Hemoglobin A1C 1955 FIT DNA/Cologuard 1955 FIT 1955 FOBT 1955 Sigmoidoscopy 1955 Diabetes: Foot Exam 12/22/1963 Eye Exam 12/22/1963 Hepatitis C Screening 12/22/1971 Mammogram 1993 RSV Patients and Patients Aged 60 years or older (1 - Risk 50-74 years 1-dose series) 12/22/2003 Zoster Vaccines (1 of 2) 12/22/2003 COVID-19 Vaccine (2 - 2024-2 6 season) 2025 01/26/2021 Influenza Vaccine (#1) 2025 SDOH Screening 09/22/2026 09/22/2025 Alcohol/Substance Use Screening 10/03/2026 10/03/2025 Depression Screening 10/03/2026 10/03/2025, 10/03/2025 Diabetes: Urine Protein Screening 10/03/2026 10/03/2025 Lipid Panel 10/03/2026 10/03/2025 Tobacco Screening 10/03/2026 10/03/2025 DTaP/Tdap/Td Vaccines (4 - T d or Tdap) 08/17/2032 08/17/2022, 11/17/2019, 05/05/2013 Pneumococcal Vaccine: 50+ Years Completed 10/03/2025, 09/25/2021 [...] on patient's age to complete this topic Goals Goal Patient Goal Type Associated Problems Recent Progress Patient-Stated? Author Help patients manage their type 2 diabetes Care Plan Help patients manage their type 2 diabetes Libra Banks MD Weekly blood pressure task Care Plan Weekly blood pressure task Libra Banks MD Help patients manage their type 2 diabetes Care Plan Help patients manage their type 2 diabetes Libra Banks MD Patient has chronic kidney disease Care Plan Patient has chronic kidney disease Libra Banks MD Weekly blood pressure task Care Plan Weekly blood pressure task Libra Banks MD Patient has chronic kidney disease Care Plan Patient has chronic kidney disease No Libra Hyman MD Procedures Procedure Name Priority Date/Time Associated Diagnosis Comments SARS COV2/INFLUENZA A/B AND RSV RNA QL NAAT Routine 10/10/2025 12:40 PM EST STREP A NUCLEIC ACID Routine 10/10/2025 12:40 PM EST XR CHEST 2 VIEWS Routine 10/10/2025 12:2 5 PM EST VITAMIN B12/FOLATE, SERUM PANEL Routine 10/03/2025 [...] hypertension from Last 3 Months Results * Strep A Nucleic Acid (10/10/2025 12:40 PM EST) IDNOW SERIAL# [id number] [facility] Strep A Nucleic Acid Negative Negative [facility] Comment:All test results mus t be correlated with clinical findings.This test has not been evaluated for monitoring treatment ofinfection.Additional follow-up testing using the culture method isrequired if the result is negative and clinical symptomspersist, or in the event of an acute rheumatic feveroutbreak. 10/10/2025 12:4 0 PM EST 10/10/2025 12:43 PM EST us Generic External Data Provider LAB MICROBIOLOGY - GENERAL ORDERABLES Final Result [facility] [address] [place] [phone] * SARS-CoV-2 RNA, Influenza A/B, and RSV RNA, Ql NAAT (10/10/2025 12:40 PM EST) Influenza A PCR NEGATIVE Negative [facility] Influenza B PCR NEGATIVE Negative [facility] Resp Syncy Virus RNA Qual PCR NEGATIVE Negative [facility] SARS COV2 PCR NEGATIVE Negative [facility] Comment:All test results mus t be correlated with clinical findings.Negative results do not preclude SARS-CoV2, influenza Avirus, influenza B virus and/or RSV infectionand should not be used as the sole basis for treatment orother patient management decisions. Negative results must becombined with clinical observations, patient history, andepidemiological information.This test has not been evaluated for monitoring treatment ofinfection.This test has been authorized by the FDA under an EmergencyUse Authorization (EUA) for use by authorized laboratories.Testing performed on the [employer] GeneXpert utilizingreal-time RT-PCR.All SARS CoV2 and positive influenza A/B results arereported to [facility]. 10/10/2025 12:4 0 PM EST 10/10/2025 12:43 PM EST us Generic External Data Provider LAB MICROBIOLOGY - GENERAL ORDERABLES Final Result Performing Organization Address City/State/[facility] Co de Phone Number [facility] [address] [place] [phone] * XR Chest 2 Views (10/10/2025 12:25 PM EST) Anatomical Region Laterality Modality Chest Radiographic Sangita ging 10/10/2025 12:2 5 PM EST Narrative 10/10/2025 12:43 PM EST [address] [address] XRay Report Signed Patient: Ximena Lund MR#: [id number] : 1955 Acct:[id number] Age/Sex: 69 / F ADM Date: 10/10/25 Loc: .ED Attending Dr: Ordering Physician: Jovanni Tejeda Date of Service: 10/10/25 Procedure(s): XR chest 2V Accession Number(s): [id number] cc: Jovanni Tejeda; Libra Hyman Reason for Exam: URI symptoms EXAMINATION: XR CHEST 2 VIEWS HISTORY: URI symptoms COMPARISON: Comparison is made with the prior examination dated 06/28/2024. FINDINGS: PA and lateral views of the chest are submitted. The lungs are expanded and clear. There is no pleural effusion, pneumothorax, or pulmonary vascular congestion. The heart is normal in size. The bones are intact. XR/XR chest 2V IMPRESSION: No acute cardiopulmonary abnormality. Electronically signed by: Dagoberto Carmona MD 10/10/2025 12:40 PM EST RP Dictated By: Dagoberto Carmona MD Signed By: <Electronically signed by Dagoberto Carmona MD in OV> 10/10/25 1240 DD/ 1225 TD/TT: 10/10/258 Icer Machine Operator: Procedure Note Donotuseinterpreter, Image - 10/10/[address] [address] XRay Report Signed Patient: Ximena LundMR#: [id number] : 4Acct:[id number] Age/Sex: 69 / FADM Date: 10/10/25 Loc: .ED Attending Dr: Ordering Physician: Jovanni Tejeda Date of Service: 10/10/25 Procedure(s): XR chest 2V Accession Number(s): [id number] cc: Jovanni Tejeda; Libra Hyman Reason for Exam: URI symptoms EXAMINATION: XR CHEST 2 VIEWS HISTORY: URI symptoms COMPARISON: Comparison is made with the prior examination dated 06/28/2024. FINDINGS: PA and lateral views of the chest are submitted. The lungs are expanded and clear. There is no pleural effusion, pneumothorax, or pulmonary vascular congestion. The heart is normal in size. The bones are intact. XR/XR chest 2V IMPRESSION: No acute cardiopulmonary abnormality. Electronically signed by: Dagoberto Carmona MD 10/10/2025 12:40 PM EST RP Dictated By: Dagoberto Carmona MD Signed By: <Electronically signed by Dagoberto Carmona MD in OV> 10/10/25 1240 DD/ 1225 TD/TT: 10/10/258 Icer Machine Operator: [facility] External Provider IMG XR PROCEDURES Edited Result - Final * (ABNORMAL) Comprehensive Metabolic Panel, Fasting (10/03/2025 10:39 AM EST) Glucose Fasting 148(H) 60 - 99 mg/dL [facility] Comment:A fasting glucose of 126 mg/dl or greater on more than oneoccasion is considered diagnostic of diabetes. 10/03/2025 10:3 9 AM EST 10/03/2025 11:23 AM EST us Generic External Data Provider LAB BLOOD ORDERAB LES Final Result [facility] [address] [place] [phone] * (ABNORMAL) Vitamin D, 25-Hydroxy, Total, Immunoassay (10/03/2025 10:39 AM EST) Vitamin D 25-OH Total 25.7(L) >30 ng/mL [facility] Comment: Health Based Reference Values*< 20 ng/mL [id number] ng/mL Insufficient> 30 ng/mL Sufficient*Ramírez RAY. N [...] ORDERAB LES Final Result Performing Organization Address City/[facility]/ZIP Co de Phone Number [facility] [address] [place] [phone] * Vitamin B12 (Cobalamin) and Folate Panel, Serum (10/03/2025 10:39 AM EST) Vitamin B12 416 200 - 900 pg/mL [facility] Comment:NORMAL 200-900 PG/ML INDETERMINATE 160-199 PG/ML DEFICIENT < 160 PG/ML Folate 9.5 > or = 4.0 ng/mL [facility] Comment:Reference Values:> o r = 4.0 ng/mL< 4.0 ng/mL suggests folate deficiency Methotrexate, aminopterin and folinic acid(leucovorin) are chemotherapeutic agents whose molecularstructures are similar to folate; therefore, the Architectfolate assay cannot be used for patients using these drugs. 10/03/2025 10:3 9 AM EST 10/03/2025 11:23 AM EST us Generic External Data Provider LAB BLOOD ORDERAB LES Final Result Performing Organization Address [facility] de Phone Number [facility] [address] [place] [phone] * Albumin, Random Urine W/Creatinine (10/03/2025 10:39 AM EST) Creatinine, Urine 403.36 mg/dL [facility] Microalbumin Urine 42.0 mg/L [facility] Microalbum Creatinine Ratio Ur 10.4 <30 ug/mg cr [facility] Comment:Albumin/Creatinine R atio Reference Ranges: Normal: < 30 ug/mg creatinine Microalbuminuria: 30 - 300 ug/mg creatinineClinical Albuminuria: > 300 ug/mg creatinine 10/03/2025 10:3 9 AM EST 10/03/2025 11:25 AM EST us Generic External Data Provider LAB URINE ORDERAB LES Final Result Performing Organization Address [facility] Co de Phone Number [facility] [address] [place] [phone] * (ABNORMAL) CBC auto differential (10/03/2025 10:39 AM EST) White Blood Count 8.5 4.8 - 10.8 X10*3/uL [facility] Red Blood Count 4.17(L) 4.20 - 5.50 X10*6/uL [facility] Hemoglobin 12.0 12.0 - 16.0 g/dl [facility] Hematocrit 38.0 37.0 - 47.0 % [facility] Mean Corpuscular Volume 91.1 80.0 - 98.0 fL [facility] Mean Corpuscular Hemoglobin 28.8 27.0 - 33.0 pg [facility] Mean Corpuscular HGB Conc 31.6 31.0 - 35.0 g/dl [facility] Red Cell Distribution Width 13.5 11.0 - 16.0 % [facility] Platelet Count 290 160 - 400 X10*3/uL [facility] Mean Platelet Volume 11.6 9.4 - 12.3 fL [facility] Neutrophils Percent Auto 71.7 45 - 73 % [facility] Imm Gran Pct Auto 0.2 0.0 - 0.4 % [facility] Lymphocytes Percent Auto 17.3(L) 20 - 40 % [facility] Monocytes Percent Auto 6.6 2 - 11 % [facility] Eosinophils Percent Auto 3.3 0 - 4 % [facility] Basophils Percent Auto 0.9 0 - 2 % [facility] NRBC Pct Auto 0.0 0.0 - 0.2 /100WBC [facility] Neutrophils Absolute Auto 6.1 2.0 - 8.3 x10*3/uL [facility] Imm Gran Abs Auto 0.02 0.00 - 0.03 X10*3/uL [facility] Lymphocytes Absolute Auto 1.5 1.2 - 4.9 X10*3/uL [facility] Monocytes Absolute Auto 0.6 0.1 - 1.2 X10*3/uL [facility] Eosinophils Absolute Auto 0.3 0.0 - 0.4 X10*3/uL [facility] Basophils Absolute Auto 0.1 0.0 - 0.2 X10*3/uL [facility] NRBC Abs Auto 0.000 0.0 - 0.012 X10*3/uL [facility] 10/03/2025 10:3 9 AM EST 10/03/2025 11:23 AM EST us Generic External Data Provider LAB BLOOD ORDERAB LES Final Result Performing Organization Address [facility]/ZIP Co de Phone Number [facility] [address] [place] [phone] * Iron And Total Iron Binding Capacity (10/03/2025 10:39 AM EST) Iron 43 30 - 160 mcg/dL [facility] Total Iron Binding Capacity 256 228 - 428 mcg/dL [facility] Percent Iron Saturation 17 15 - 50 % [facility] Unsaturated Iron Binding 213 ug/dL [facility] 10/03/2025 10:3 9 AM EST 10/03/2025 11:23 AM EST us Generic External Data Provider LAB BLOOD ORDERAB LES Final Result Performing Organization Address [facility]/ZIP Co de Phone Number [facility] [address] [place] [phone] * TSH (10/03/2025 10:39 AM EST) Thyroid Stimulating Hormone 1.45 0.32 - 4.0 uIU/mL [facility] Comment:TSH 3rd Generation ( [facility]) 10/03/2025 10:3 9 AM EST 10/03/2025 11:23 AM EST us Generic External Data Provider LAB BLOOD ORDERAB LES Final Result [facility] [address] [place] [phone] * (ABNORMAL) Lipid Panel, Standard (10/03/2025 10:39 AM EST) Triglycerides 100 <150 mg/dL [facility] Comment:Desirable Triglyceri de: less than 150 mg/dLBorderline High Triglyceride 150-199 mg/dLHigh Triglyceride: 200-499 mg/dLVery High Triglyceride: greater than or equal to 5OO mg/dL Cholesterol 93 <200 mg/dL [facility] Comment:Desirable Cholestero l: less than 200 mg/dLBorderline High Cholesterol: 200-239 mg/dLHigh Cholesterol: greater than 239 mg/dL LDL Cholesterol Calculated 40 <100 mg/dL [facility] Comment:Desirable LDL: less than 100 mg/dLNear Optimal/Above Optimal LDL: 110- 129 mg/dLBorderline High LDL: 130-159 mg/dLHigh LDL: 160-189 mg/dLVery High LDL: greater than or equal to 190 mg/dL HDL Cholesterol 33(L) >40 mg/dL [facility] Comment:Desirable HDL: great er than 40 mg/dL Note: This HDL assay may give artificially low results in patients with liver disease. Blood Venous blood specimen / Unknown 10/03/2025 10:39 AM EST 10/03/2025 11:23 AM EST us Libra Hyman MD LAB BLOOD ORDERABLES Final Res ult [facility] [address] [place] [phone] * (ABNORMAL) Comprehensive Metabolic Panel (10/03/2025 10:39 AM EST) Sodium 142 135 - 145 mmol/L [facility] Potassium 4.3 3.3 - 5.1 mmol/L [facility] Chloride 106 96 - 108 mmol/L [facility] Carbon Dioxide 28 22 - 29 mmol/L [facility] Anion Gap 12 12 - 20 [facility] Urea Nitrogen (BUN) 10 9 - 16 mg/dL [facility] Creatinine, Serum 0.92 0.5 - 1.4 mg/dL [facility] Estimated Glomerular Filt Rate >60 [facility] Comment:Chronic Kidney Disea se: Estimated GFR < 60 mL/min/1.69g5Sdring Kidney Disease: Estimated GFR < 15 mL/min/1.73m2 Glucose 147(H) 60 - 115 mg/dL [facility] Calcium 9.1 8.4 - 10.2 mg/dL [facility] Bilirubin, Total 0.4 0.0 - 1.0 mg/dL [facility] Aspartate Amino Transferase 35(H) 5 - 31 U/L [facility] Alanine Aminotransferase 22 0 - 31 U/L [facility] Total Protein 7.3 6.5 - 8.0 g/dL [facility] Albumin Level 4.2 3.5 - 5.0 g/dL [facility] Alkaline Phosphatase 166(H) 39 - 117 U/L [facility] Blood Venous blood specimen / Unknown 10/03/2025 10:39 AM EST 10/03/2025 11:23 AM EST us Libra Hyman MD LAB BLOOD ORDERABLES Final Res ult [facility] [address] [place] [phone] from Last 3 Months Additional Health Concerns Active Problems Noted Date Diagnosed Date Help patients manage their type 2 diabetes 10/03 Weekly blood pressure task 10/03/2025 Help patients manage their type 2 diabetes 10/03 Patient has chronic kidney disease 10/03/2025 Weekly blood pressure task 10/03/2025 Patient has chronic kidney disease 10/03/2025 Insurance [facility] OPTIONS (HMO D-SNP) Care Teams Ultrasound Technol Relationship Specialty Start Date End Date Libra Hyman MD [address] [place] [phone] PCP - General Family Medicine 10/03/25
--- OUTSIDE RECORDS SUMMARY | 2025-10-10 13:52 | XMS_ITS | Data Portability ---
Author Organization [employer] [facility] Address [address] [place] [phone] Care Team Providers Care Blade Sharpener Name Role Phone [facility] Referring Provider Assessment Encounter Date Assessment Date Assessment LastModified by Organization Details LastModified Time 08/26/2023 08/26/2023 I provided real -time medical direction via phone for this encounter, and was available for additional phone based assistance as needed. I have reviewed and agree with the Assessment and Plan as documented by the Public Address System Operator 67-year-old female is seen for several days of cough productive clear sputum. No fevers. No shortness of breath. No chest pain. Covid ndxfl-kf-lkli testing negative. Given symptoms greater than five [...] Tessalon Perles 100 mg capsule 2022 023 [facility]/Pharmacy #[id number], [address] [place], [address], 3 11:33:30 Patient TargetsNo targets recorded. Patient InstructionsNo instructions recorded. Reason for Referral None Reported. Medical Equipment None Reported. Allergies Allergen ID Allergen Name Allergen Category Reaction Reaction Severity Criticality Documentation Date Start Date Code Code System Note Provider Name and Address Organization Details Recorded Time 9821 morphine medicatio n Not available Not available Not available 08/16/2024 7052 RxNorm Not Available [facility] - production 03:54:51 9364 Product containin g penicilli n (product) medicatio n Not available Not available Not available 08/16/2024 27274 8001 SNOMED Not Available [facility] - production 4 03:54:51 Medications Name Sig Start Date Stop [...] Recorded Heart rate Respiratory rate Oxygen saturation Body temperature Systolic And Diastolic Provider Name and Address Organization Details Last Updated DateTime 3 70 /min 18 /min 99 % 98.9 [degF] 142/98 mm[Hg] Not Available [facility] - production 3 [...] Diagnosis SNOMED-CT Code Diagnosis ICD10 Code Diagnosis IMO Codes Diagnosis Note [id number] Noam Lua MD Main - [facility] [address] [place] [phone] 08/26/2023 11:31:29 10/24/2023 16:07:44 Cough 39630392 R05.9 Health Concerns Section Related Observation LastModified by Organization Detai ls LastModified Time None Recorded Concern Status LastModified by Organization Details LastModified Time None Recorded Advance Directives Directive None Recorded Payers Insurance Date Sequence Insurance Name Policy Number Policy Humphrey Covered Member ID Humphrey Member ID Guarantor Name 10/24/2023 1 [facility] - DOS ON OR AFTER 2023 - DUAL ELIGIBLE - [employer]CI OPTIONS AND ONE CARE (MEDICARE REPLACEMENT/ADV ANTAGE - HMO) Ximena Cano [id number] Ximena Cano Notes Date Note Type Note [...] .................. .................. .................. .................. .................. .................. ............... Public Address System Operator Note From Scotty Rsoe: Patient reports eight days of productive cough with clear phlegm. Patient denies difficulty breathing, but states that the coughing is causing her back to hurt. Denies chest pain or changes in vision. Breath sounds clear in all mazariegos. [facility] contacted: prescription for Tessalon pearls at patient s pharmacy of choice was made. Red flags covered with patient regarding symptoms and medication. POC Covid swab negative Public Address System Operator Allergies: Morphine, Penicillin .................. .................. .................. .................. .................. .................. .................. ............... Disposition: Fulfilled Noam Lua MD [address] [place] [address],[address], [place], [address], [facility] [place], [facility] 10/08/2023 12:32:44 OBGyn Episode No OBEpisode recorded.
--- OUTSIDE RECORDS SUMMARY | 2025-10-10 13:52 | XMS_ITS | Clinical Summary ---
Author Organization [facility] Address [address] [place] [address] Care Team Providers Care Strap Making Machine Operator Name Role Phone Unavailable Primary [...]
[2025-10-10] MEDS: Albuterol/Iprat 2.5/0.5MG 3 ML AMPUL.NEB INHALE (14:45)
[2025-10-10 14:48] VITALS: PULSE 71; RESP 16; O2SAT 98
[2025-10-10 14:54] VITALS: BP 140/59; PULSE 62; RESP 18; TEMP 35.9; O2SAT 100
[2025-10-10 14:58] VITALS: BP 140/59; PULSE 62; RESP 18; TEMP 35.9; O2SAT 100
== END 2025-10-10 14:59 | disposition home or self-care (01) ==
PROVIDERS: Physician Assistant; Emergency Provider Emergency Medicine; PCP General Practice
DX: J45.901 Unspecified asthma with (acute) exacerbation (principal); B34.9 Viral infection, unspecified; Z03.818 Encounter for observation for suspected exposure to other biological agents ruled out; R06.02 Shortness of breath; I10 Essential (primary) hypertension; K21.9 Gastro-esophageal reflux disease without esophagitis; E11.9 Type 2 diabetes mellitus without complications
CPT/HCPCS: 71046; 87637; 87651; 94640; 99283; 99284

== ENCOUNTER → 2025-10-10 11:47 | Outpatient (BNV) | payer OTHER, SELFPAY | PROVIDERS: PCP General Practice; Visit Provider Radiology Diagnostic Radiology | DX: R06.02 Shortness of breath (principal) | CPT/HCPCS: 71046 ==

== ENCOUNTER 2025-10-18 10:28 | Outpatient (REF) | payer OTHER, SELFPAY ==
--- OUTSIDE RECORDS SUMMARY | 2025-10-18 10:15 | XMS_ITS | Encounter Summary ---
Author Organization [employer] Address [address] [facility] [address] [place] [address] Care Team Providers Care Production Expert Name Role Phone Libra Hyman MD Primary Care Provider [phone] Reason for Visit * Reason Comments sick visit Encounter Details Date Type Department Care Team (Late st Contact Info) Description 10/18/2025 10:15 AM EST Office Visit [facility] [address] [place], [place] [phone] Libra Hyman MD [address] [place], [place] [phone] Class 1 obesity (Primary Dx) Social History Tobacco Use Types Packs/Day Years Used Date Smoking Tobacco: Never Smokeless Tobacco: Never Alcohol Answer Date Recorded How often do [...] Sign Reading Time Taken Comments Blood Pressure 138/82 10/18/2025 9:59 AM EST Pulse 76 10/18/2025 9:59 AM EST Temperature 36.1 C (97 F) 10/18/2025 9:59 AM EST Respiratory Rate 18 10/18/2025 9:59 AM EST Oxygen Saturation 98% 10/18/2025 9:59 AM EST Inhaled Oxygen Concentration - - Weight 79.4 kg (175 lb) 10/18/2025 9:59 AM EST Height 154.9 cm (5' 1 ) 10/18/2025 9:59 AM EST Body Mass Index 33.07 10/18/2025 9:59 AM EST documented in this encounter Plan of Treatment Scheduled Orders Name Type Priority Associated Diagnoses Orde r Schedule TSH W/Reflex to FT4 Lab Routine Class 1 obesity Expected: 10/18/2025 (Approximate), Expires: 10/18/2026 Comprehensive Metabolic Panel Lab Routine Class 1 obesity Expected: 10/18/2025 (Approximate), Expires: 10/18/2026 Hemoglobin A1c Lab Routine Class 1 obesity Expected: 10/18/2025 (Approximate), Expires: 10/18/2026 documented as of this encounter Goals Goal Patient Goal Type Associated Problems Recent Progress Patient-Stated? Author Help patients manage their type 2 diabetes Care Plan Help patients manage their type 2 diabetes Libra Banks MD Weekly blood pressure task Care Plan Weekly blood pressure task No Libra Hyman MD Help patients manage their type 2 diabetes Care Plan Help patients manage their type 2 diabetes No Libra Hyman MD Patient has chronic kidney disease Care Plan Patient has chronic kidney disease No Libra Hyman MD Weekly blood pressure task Care Plan Weekly blood pressure task No Libra Hyman MD Patient has chronic kidney disease Care Plan Patient has chronic kidney disease No Libra Hyman MD Weekly blood pressure task Care Plan Weekly blood pressure task No Emily Coronado Weekly blood pressure task Care Plan Weekly blood pressure task No Coronado, Emily Patient has chronic kidney disease Care Plan Patient has chronic kidney disease No Coronado, Emily Patient has chronic kidney disease Care Plan Patient has chronic kidney disease No Cliff Emily Weekly blood pressure task Care Plan Weekly blood pressure task No Iva Pierre MA Weekly blood pressure task Care Plan Weekly blood pressure task No Iva Pierre MA Patient has chronic kidney disease Care Plan Patient has chronic kidney disease No Iva Pierre MA Patient has chronic kidney disease Care Plan Patient has chronic kidney disease No Iva Pierre MA documented as of this encounter Visit Diagnoses Diagnosis Class 1 obesity- Primary documented in this encounter Additional Health Concerns Active Problems Noted Date Diagnosed Date Help patients manage their type 2 diabetes 10/03 Weekly blood pressure task 10/03/2025 Help patients manage their type 2 diabetes 10/03 Patient has chronic kidney disease 10/03/2025 Weekly blood pressure task 10/03/2025 Patient has chronic kidney disease 10/03/2025 Weekly blood pressure task 10/16/2025 Weekly blood pressure task 10/16/2025 Patient has chronic kidney disease 10/16/2025 Patient has chronic kidney disease 10/16/2025 Weekly blood pressure task 10/17/2025 Weekly blood pressure task 10/17/2025 Patient has chronic kidney disease 10/17/2025 Patient has chronic kidney disease 10/17/2025 Assessment Noted Time PHQ-9 Depression Total Score: 6 10/03/20 25 9:48 AM EST documented as of this encounter Care Teams Production Expert Relationship Specialty Start Date End Date Libra Hyman MD [address] [place] [phone] PCP - General Family Medicine 10/03/25 documented as of this encounter
--- OUTSIDE RECORDS SUMMARY | 2025-10-18 11:43 | XMS_ITS | Encounter Summary ---
Author Organization [email or web address] Address [address] [facility] [address] [place] [address] Care Team Providers Care Ash Collector Name Role Phone Libra Hyman MD Primary Care Provider [phone] Encounter Details Date Type Department Care Team (Latest Contact Info) Description 10/18/2025 Travel Social History Tobacco Use Types Packs/Day [...] AM EDT documented as of this encounter Plan of Treatment Not on file documented as of this encounter Goals Goal Patient Goal Type Associated Problems Recent Progress Patient-Stated? Author Help patients manage their type 2 diabetes Care Plan Help patients manage their type 2 diabetes No Libra Hyman MD Weekly blood pressure [...] Weekly blood pressure task No Emily Coronado Patient has chronic kidney disease Care Plan Patient has chronic kidney disease No Emily Coronado Patient has chronic kidney disease Care Plan Patient has chronic kidney disease No Emily Coronado Weekly blood pressure task [...] filedocumented in this encounter Additional Health Concerns Active [...] documented as of this encounter Care Teams Ash Collector Relationship Specialty Start Date End Date Libra Hyman MD [address] [place] [id number] PCP - General Family Medicine 10/03/25 documented as of this encounter
--- OUTSIDE RECORDS SUMMARY | 2025-10-18 11:43 | XMS_ITS | Encounter Summary ---
Author Organization [employer] Address [address] [facility] [address] [place] [address] Care Team Providers Care Master Chef Name Role Phone Libra Hyman MD Primary Care Provider Reason for Visit * Reason Onset Date Comments telephone call 10/16/2025 Encounter Details Date Type Department Care Team ([facility] st Contact Info) Description 10/16/2025 Telephone [facility] [address] [place], [place] [phone] Libra Hyman MD [address] [place] [address] telephone call Social History Tobacco Use Types Packs/Day Years [...] encounter Miscellaneous Notes * Telephone Encounter - Ericka Alfaro RN - 10/17/2025 11:51 AM EST Patient seen at [facility] ED on 10/10/25 for asthma. Patient tested for RSV, flu and COVID which were negative. Patient was given duoneb in the ED and discharged home with prednisone x4 days. TC placed to patient [phone] via [employer] ([employer] #[id number])who reports she obtained the prednisone from the pharmacy however she has completed the prednisone and continues with some residual s/s. Patient reports a productive cough with phlegm that is clear/green. Patient denies any chest pain but reports has lung pain . Patient reports she has not used her albuterol inhaler in 3 weeks and it is broken . Patient is not sure what happened, reports I might have dropped my purse . Patient did not sound SOB during call. Patient scheduled for an appointment tomorrow 10/18/25 at 10:15am. ED note in chart. Patient to f/u PRN. * Telephone Encounter - Emily Coronado - 10/16/2025 11:13 AM EST Pt walked I stating she was seen on 10/10/25 at [facility] and needs a fu appointment. documented in this encounter Plan of Treatment [...] task Care Plan Weekly blood pressure task Emily Horton Weekly blood pressure task Care Plan Weekly blood pressure task No Emily Coronado Patient has chronic kidney disease Care Plan Patient has chronic kidney disease Emily Horton Patient has chronic kidney disease Care Plan Patient has chronic kidney disease Emily Horton Weekly blood pressure task Care Plan Weekly [...] documented as of this encounter Care Teams Master Chef Relationship Specialty Start Date End Date Libra Hyman MD [address] [place] [phone] PCP - General Family Medicine 10/03/25 documented as of this encounter
--- OUTSIDE RECORDS SUMMARY | 2025-10-18 11:43 | XMS_ITS | Data Portability ---
Author Organization [employer] [facility] Address [address] [place] [phone] Care Team Providers Care Embossing Tool Setter Name Role Phone [facility] Referring Provider [phone] Assessment Encounter Date Assessment Date Assessment LastModified by Organization Details LastModified Time 08/26/2023 08/26/2023 I provided real -time medical direction via phone for this encounter, and was available for additional phone based assistance as needed. I have reviewed and agree with the Assessment and Plan as documented by the Rollout Manager 67-year-old female is seen for several days of cough productive clear sputum. No fevers. No shortness of breath. No chest pain. Covid lhoyg-bl-eice testing negative. Given symptoms greater than five [...] Tessalon Perles 100 mg capsule 2022 023 [facility]/Pharmacy #[id number], [address] [place], [address], 3 11:33:30 Patient TargetsNo targets recorded. Patient InstructionsNo instructions recorded. Reason for Referral None Reported. Medical Equipment None Reported. Allergies Allergen ID Allergen Name Allergen Category Reaction Reaction Severity Criticality Documentation Date Start Date Code Code System Note Provider Name and Address Organization Details Recorded Time 0868 morphine medicatio n Not available Not available Not available 08/16/2024 7052 RxNorm Not Available [facility] - production 03:54:51 9364 Product containin g penicilli n (product) medicatio n Not available Not available Not available 08/16/2024 28963 8001 SNOMED Not Available [facility] - production [...] ICD10 Code Diagnosis IMO Codes Diagnosis Note 75072 Noam Lua MD Main - [facility] [address] [place] [phone] 08/26/2023 11:31:29 10/24/2023 16:07:44 Cough [id number] R05.9 Health Concerns Section Related Observation LastModified by Organization Detai ls LastModified Time None Recorded Concern Status LastModified by Organization Details LastModified Time None Recorded Advance Directives Directive None Recorded Payers Insurance Date Sequence Insurance Name Policy Number Policy Humphrey Covered Member ID Humphrey Member ID Guarantor Name 10/24/2023 1 [facility] - DOS ON OR AFTER 2023 - DUAL ELIGIBLE - [employer] OPTIONS AND ONE CARE (MEDICARE REPLACEMENT/ADV ANTAGE - HMO) Ximena Cano [id number] Ximena [employer] Notes Date Note Type Note [...] .................. .................. .................. .................. .................. .................. ............... Rollout Manager Note From Scotty Rose: Patient reports eight days of productive cough with clear phlegm. Patient denies difficulty breathing, but states that the coughing is causing her back to hurt. Denies chest pain or changes in vision. Breath sounds clear in all mazariegos. [facility] contacted: prescription for Tessalon pearls at patient s pharmacy of choice was made. Red flags covered with patient regarding symptoms and medication. POC Covid swab negative Rollout Manager Allergies: Morphine, Penicillin .................. .................. .................. .................. .................. .................. .................. ............... Disposition: Fulfilled Noam Lua MD [address] [place] [address],[address], [place], [phone], [facility], [facility] 10/08/2023 12:32:44 OBGyn Episode No OBEpisode recorded.
--- OUTSIDE RECORDS SUMMARY | 2025-10-18 11:43 | XMS_ITS | Clinical Summary ---
Author Organization [employer] Address [address] [facility] [address] [place] [address] Care Team Providers Care Stacker Attendant Name Role Phone Libra Hyman MD Primary Care Provider [phone] Allergies Active Allergy Reactions Criticality Noted Date [...] day. 90 tablet 3 025 2025 Active predniSONE (Deltasone) 20 MG tablet TAKE 2 TABLETS BY MOUTH EVERY DAY FOR 4 DAYS Active DULoxetine (Cymbalta) [address] capsule Take 1 capsule (20 mg) by mouth Once per day. Do not crush or chew. 90 capsule 1 025 2025 Active budesonide-form oterol (Symbicort) 80-4.5 MCG/ACT inhaler Inhale 2 puffs if needed in the morning, at noon, in the evening, and at bedtime (SOB). Rinse mouth with water after use to reduce aftertaste and incidence of candidiasis. Do not swallow. 1 each 025 2025 Active azithromycin (Zithromax) 250 MG tablet [...] Active Problems Problem Noted Date Diagnosed Date Class 1 obesity 10/17/2025 Asthma 10/03/2025 Bilateral carotid artery stenosis 10/03/2025 [...] Pain in joint involving lower leg 01/12/2012 Resolved Problems Problem Noted Date Diagnosed Date Resolved Date Type 2 diabetes mellitus wit hout complication, without long-term current use of insulin 10/03/2025 10/18/2025 Encounters Date Type Department Care Team Description 10/18/2025 10:15 AM EST Office Visit [facility] [address] [place] [phone] Libra Hyman MD Class 1 obesity (Primary Dx) 10/18/2025 Travel 10/16/[address] [address] Libra Hyman MD telephone call 10/03/2025 9:45 AM EST Office Visit [address] [address] Libra Hyman MD Essential hypertension (Primary Dx); [...] External Data 10/03/2025 Travel 10/02/[address] [address] Libra Hyman MD Chart Prep 09/22/2025 Patient Outreach [address] [address] Libra Hyman MD Pre-visit Planning (SDOH screening negative and tobacco screening negative) 08/14/[address] [address] Mino Collazo MD [facility] - New Patient [...] Mass Index 33.07 10/18/2025 9:59 AM EST Plan of Treatment Health Maintenance [...] 10/03/2025 Lipid Panel 10/03/2026 10/03/2025 Tobacco Screening 10/18/2026 10/18/2025 DTaP/Tdap/Td Vaccines (4 - T d or [...] chronic kidney disease No Iva Pierre MA Procedures Procedure Name Priority Date/Time Associated Diagnosis [...] Acid (10/10/2025 12:40 PM EST) IDNOW SERIAL# [id number] [facility] Strep A Nucleic Acid Negative Negative [facility] Comment:All test results mus t be correlated with clinical findings.This test has not been evaluated for monitoring treatment ofinfection.Additional follow-up testing using the culture method isrequired if the result is negative and clinical symptomspersist, or in the event of an acute rheumatic feveroutbreak. 10/10/2025 12:4 0 PM EST 10/10/2025 12:43 PM EST Generic External Data Provider LAB MICROBIOLOGY - GENERAL ORDERABLES Final Result [facility] [address] [place] [phone] * SARS-CoV-2 RNA, Influenza A/B, and RSV RNA, Ql NAAT (10/10/2025 12:40 PM EST) Influenza A PCR NEGATIVE Negative [facility] Influenza B PCR NEGATIVE Negative [facility] Resp Syncy Virus RNA Qual PCR NEGATIVE Negative [facility] SARS COV2 PCR NEGATIVE Negative [facility] Comment:All test results mus t be [...] use by authorized laboratories.Testing performed on the Cepheid GeneXpert utilizingreal-time RT-PCR.All SARS CoV2 and positive influenza A/B results arereported to [facility]. 10/10/2025 12:4 0 PM EST 10/10/2025 12:43 PM EST us Generic External Data Provider LAB MICROBIOLOGY - GENERAL ORDERABLES Final Result Performing Organization Address City/State/[facility] Co de Phone Number [facility] [address] [place] [phone] * XR Chest 2 Views (10/10/2025 12:25 PM EST) Anatomical Region Laterality Modality Chest Radiographic Sangita ging 10/10/2025 12:2 5 PM EST Narrative 10/10/2025 12:43 PM EST [address] [address] XRay Report Signed Patient: Ximena Lund MR#: [id number] : 1955 Acct:[id number] Age/Sex: 69 / F ADM Date: 10/10/25 Loc: .ED Attending Dr: Ordering Physician: Jovanni Tejeda Date of Service: 10/10/25 Procedure(s): XR chest 2V Accession Number(s): [id number] cc: Jovanni Tejeda; Libra Hyman Reason for [...] Dagoberto Carmona MD 10/10/2025 12:40 PM EST Dictated By: Dagoberto Carmona MD Signed By: <Electronically signed by Dagoberto Carmona MD in OV> 10/10/25 1240 DD/ 1225 TD/TT: 10/10/25 1228 Flight Crew Scheduler: Procedure Note Donotuseinterpreter, Image - 10/10/[address] [address] XRay Report Signed Patient: Ximena LundMR#: [id number] : 4Acct:[id number] Age/Sex: 69 / FADM Date: 10/10/25 Loc: HO.ED Attending Dr: Ordering Physician: Jovanni Tejeda Date of Service: 10/10/25 Procedure(s): XR chest 2V Accession Number(s): [id number] cc: Jovanni Tejeda; Libra Hyman Reason for [...] Dagoberto Carmona MD 10/10/2025 12:40 PM EST Dictated By: Dagoberto Carmona MD Signed By: <Electronically signed by Dagoberto Carmona MD in OV> 10/10/25 1240 DD/ 1225 TD/TT: 10/10/25 1228 Flight Crew Scheduler: [facility] External Provider IMG XR PROCEDURES Edited Result - Final * (ABNORMAL) Comprehensive Metabolic Panel, Fasting (10/03/2025 10:39 AM EST) Glucose Fasting 148(H) 60 - 99 mg/dL [facility] Comment:A fasting glucose of 126 mg/dl or greater on more than oneoccasion is considered diagnostic of diabetes. 10/03/2025 10:3 9 AM EST 10/03/2025 11:23 AM EST us Generic External Data Provider LAB BLOOD ORDERAB LES Final Result Performing Organization Address City/[facility]/ZIP Co de Phone Number [facility] [address] [place] [phone] * (ABNORMAL) Vitamin D, 25-Hydroxy, Total, Immunoassay (10/03/2025 10:39 AM EST) Vitamin D 25-OH Total 25.7(L) >30 ng/mL [facility] Comment: Health Based Reference Values*< 20 ng/mL [id number] ng/mL Insufficient> 30 ng/mL Sufficient*Ramírez RAY. N [...] ORDERAB LES Final Result Performing Organization Address City/[facility]/ZIP Co de Phone Number [facility] [address] [place] [phone] * Vitamin B12 (Cobalamin) and Folate Panel, Serum (10/03/2025 10:39 AM EST) Vitamin B12 416 200 - 900 pg/mL [facility] Comment:NORMAL 200-900 PG/ML INDETERMINATE 160-199 PG/ML DEFICIENT < 160 PG/ML Folate 9.5 > or = 4.0 ng/mL [facility] Comment:Reference Values:> o r = 4.0 ng/mL< 4.0 ng/mL suggests folate deficiency Methotrexate, aminopterin and folinic acid(leucovorin) are chemotherapeutic agents whose molecularstructures are similar to folate; therefore, the Architectfolate assay cannot be used for patients using these drugs. 10/03/2025 10:3 9 AM EST 10/03/2025 11:23 AM EST Generic External Data Provider LAB BLOOD ORDERAB LES Final Result Performing Organization Address [facility] Co de Phone Number [facility] [address] [place] [address] [phone] * Albumin, Random Urine W/Creatinine (10/03/2025 10:39 AM EST) Creatinine, Urine 403.36 mg/dL [facility] Microalbumin Urine 42.0 mg/L [facility] Microalbum Creatinine Ratio Ur 10.4 <30 ug/mg cr [facility] Comment:Albumin/Creatinine R atio Reference Ranges: Normal: < 30 ug/mg creatinine Microalbuminuria: 30 - 300 ug/mg creatinineClinical Albuminuria: > 300 ug/mg creatinine 10/03/2025 10:3 9 AM EST 10/03/2025 11:25 AM EST us Generic External Data Provider LAB URINE ORDERAB LES Final Result Performing Organization Address [facility]/ZIP Co de Phone Number [facility] [address] [place] [address] [phone] * (ABNORMAL) CBC auto differential (10/03/2025 10:39 AM EST) White Blood Count 8.5 4.8 - 10.8 X10*3/uL [facility] Red Blood Count 4.17(L) 4.20 - 5.50 X10*6/uL [facility] Hemoglobin 12.0 12.0 - 16.0 g/dl [facility] Hematocrit 38.0 37.0 - 47.0 % [facility] Mean Corpuscular Volume 91.1 80.0 - 98.0 fL [facility] Mean Corpuscular Hemoglobin 28.8 27.0 - 33.0 pg [facility] Mean Corpuscular HGB Conc 31.6 31.0 - 35.0 g/dl [facility] Red Cell Distribution Width 13.5 11.0 - 16.0 % [facility] Platelet Count 290 160 - 400 X10*3/uL [facility] Mean Platelet Volume 11.6 9.4 - 12.3 fL [facility] Neutrophils Percent Auto 71.7 45 - 73 % [facility] Imm Gran Pct Auto 0.2 0.0 - 0.4 % [facility] Lymphocytes Percent Auto 17.3(L) 20 - 40 % [facility] Monocytes Percent Auto 6.6 2 - 11 % [facility] Eosinophils Percent Auto 3.3 0 - 4 % [facility] Basophils Percent Auto 0.9 0 - 2 % [facility] NRBC Pct Auto 0.0 0.0 - 0.2 /100WBC [facility] Neutrophils Absolute Auto 6.1 2.0 - 8.3 x10*3/uL [facility] Imm Gran Abs Auto 0.02 0.00 - 0.03 X10*3/uL [facility] Lymphocytes Absolute Auto 1.5 1.2 - 4.9 X10*3/uL [facility] Monocytes Absolute Auto 0.6 0.1 - 1.2 X10*3/uL [facility] Eosinophils Absolute Auto 0.3 0.0 - 0.4 X10*3/uL [facility] Basophils Absolute Auto 0.1 0.0 - 0.2 X10*3/uL [facility] NRBC Abs Auto 0.000 0.0 - 0.012 X10*3/uL [facility] 10/03/2025 10:3 9 AM EST 10/03/2025 11:23 AM EST Generic External Data Provider LAB BLOOD ORDERAB LES Final Result Performing Organization Address [facility] Co de Phone Number [facility] [address] [place] [phone] * Iron And Total Iron Binding Capacity (10/03/2025 10:39 AM EST) Pathologist [facility] Iron 43 30 - 160 mcg/dL [facility] Total Iron Binding Capacity 256 228 - 428 mcg/dL [facility] Percent Iron Saturation 17 15 - 50 % [facility] Unsaturated Iron Binding 213 ug/dL [facility] 10/03/2025 10:3 9 AM EST 10/03/2025 11:23 AM EST Generic External Data Provider LAB BLOOD ORDERAB LES Final Result Performing Organization Address [facility] Co de Phone Number [facility] [address] [place] [phone] * TSH (10/03/2025 10:39 AM EST) [facility] Thyroid Stimulating Hormone 1.45 0.32 - 4.0 uIU/mL [facility] Comment:TSH 3rd Generation ( [facility]) 10/03/2025 10:3 9 AM EST 10/03/2025 11:23 AM EST Generic External Data Provider LAB BLOOD ORDERAB LES Final Result Performing Organization Address [facility] Co de Phone Number [facility] [address] [place] [phone] * (ABNORMAL) Lipid Panel, Standard (10/03/2025 10:39 AM EST) Pathologist [facility] Triglycerides 100 <150 mg/dL [facility] Comment:Desirable Triglyceri de: less than 150 mg/dLBorderline High Triglyceride 150-199 mg/dLHigh Triglyceride: 200-499 mg/dLVery High Triglyceride: greater than or equal to 5OO mg/dL Cholesterol 93 <200 mg/dL [facility] Comment:Desirable Cholestero l: less than 200 mg/dLBorderline High Cholesterol: 200-239 mg/dLHigh Cholesterol: greater than 239 mg/dL LDL Cholesterol Calculated 40 <100 mg/dL [facility] Comment:Desirable LDL: less than 100 mg/dLNear Optimal/Above Optimal LDL: 110- 129 mg/dLBorderline High LDL: 130-159 mg/dLHigh LDL: 160-189 mg/dLVery High LDL: greater than or equal to 190 mg/dL HDL Cholesterol 33(L) >40 mg/dL [facility] Comment:Desirable HDL: great er than 40 mg/dL Note: This HDL assay may give artificially low results in patients with liver disease. Blood Venous blood specimen / Unknown 10/03/2025 10:39 AM EST 10/03/2025 11:23 AM EST us Libra Hyman MD LAB BLOOD ORDERABLES Final Res ult [facility] [address] [place] [address] [phone] * (ABNORMAL) Comprehensive Metabolic Panel (10/03/2025 10:39 AM EST) Sodium 142 135 - 145 mmol/L [facility] Potassium 4.3 3.3 - 5.1 mmol/L [facility] Chloride 106 96 - 108 mmol/L [facility] Carbon Dioxide 28 22 - 29 mmol/L [facility] Anion Gap 12 12 - 20 [facility] Urea Nitrogen (BUN) 10 9 - 16 mg/dL [facility] Creatinine, Serum 0.92 0.5 - 1.4 mg/dL [facility] Estimated Glomerular Filt Rate >60 [facility] Comment:Chronic Kidney Disea se: Estimated GFR < 60 mL/min/[id number] Kidney Disease: Estimated GFR < 15 mL/min/1.73m2 Glucose 147(H) 60 - 115 mg/dL [facility] Calcium 9.1 8.4 - 10.2 mg/dL [facility] Bilirubin, Total 0.4 0.0 - 1.0 mg/dL [facility] Aspartate Amino Transferase 35(H) 5 - 31 U/L [facility] Alanine Aminotransferase 22 0 - 31 U/L [facility] Total Protein 7.3 6.5 - 8.0 g/dL [facility] Albumin Level 4.2 3.5 - 5.0 g/dL [facility] Alkaline Phosphatase 166(H) 39 - 117 U/L [facility] Blood Venous blood specimen / Unknown 10/03/2025 10:39 AM EST 10/03/2025 11:23 AM EST us Libra Hyman MD LAB BLOOD ORDERABLES Final Res ult Performing Organization Address City/State/[facility] Co de Phone Number [facility] [address] [place] [phone] from Last 3 Months Additional Health [...] 10/17/2025 Patient has chronic kidney disease 10/17/2025 Insurance [facility] STANDARD [facility] SKILLED NURSING OPTIONS (HMO D-SNP) Care Teams Stacker Attendant Relationship Specialty Start Date End Date Libra Hyman MD [address] [place] [phone] PCP - General Family Medicine 10/03/25
--- OUTSIDE RECORDS SUMMARY | 2025-10-18 11:43 | XMS_ITS | Clinical Summary ---
Author Organization [facility] Address [address] [place] [phone] Care Team Providers Care Shorthand Teacher Name Role Phone Unavailable Primary Care [...]
[2025-10-18 15:08] LABS: Alanine Aminotransferase 21 U/L (0-31); Albumin Level 3.6 g/dL (3.5-5.0); Alkaline Phosphatase 134 U/L (39-117); Anion Gap 11 (12-20); Aspartate Amino Transferase 31 U/L (5-31); Blood Urea Nitrogen 20 mg/dL (9-16); Calcium 8.7 mg/dL (8.4-10.2); Carbon Dioxide 27 mmol/L (22-29); Chloride 106 mmol/L (96-108); Cholesterol 86 mg/dL (<200); Estimated Glomerular Filt Rate > 60; HDL Cholesterol 31 mg/dL (>40); Potassium 3.9 mmol/L (3.3-5.1); Sodium 140 mmol/L (135-145); Total Protein 6.6 g/dL (6.5-8.0); Triglycerides 103 mg/dL (<150)
== END 2025-10-18 10:29 | disposition home or self-care (01) ==
LOC: HO.HHCL 10:28
PROVIDERS: PCP General Practice; Referring Provider Internal Medicine; Visit Provider General Practice
DX: Z13.1 Encounter for screening for diabetes mellitus (principal); E66.811 Obesity, class 1; E78.5 Hyperlipidemia, unspecified
CPT/HCPCS: 36415; 80053; 80061; 83036; 84443